=== PATIENT | male | born 1985 | race Caucasian/White ===

== ENCOUNTER 2017-09-05 10:32 | Emergency (ER) | payer OTHER, BC | END 2017-09-05 12:27 | disposition home or self-care (01) | LOC: M ED 10:32 | DX: S93.401A Sprain of unspecified ligament of right ankle, initial encounter (principal); W01.0XXA Fall on same level from slipping, tripping and stumbling without subsequent striking against object, initial encounter; Y92.59 Other trade areas as the place of occurrence of the external cause; Y99.0 Civilian activity done for income or pay | CPT/HCPCS: 73610 ==

== ENCOUNTER → 2019-07-22 | Outpatient (CLI) | payer BC ==
[~2019-07-22] MED LIST: IBUP200T45 PO
--- NOTE | 2019-07-22 11:34 | REP ---
Chest x-ray: Two views. History: Cough and wheezing. Findings: The lungs are well inflated and clear. Pleural angles are sharp. Heart size is normal. Pulmonary vasculature is not increased. No significant bony abnormality is appreciated. Impression: No acute disease. Electronically Signed by Jimy Alejandre MD 07/22/2019 11:25 A
== END ==
LOC: M LRY 10:58
PROVIDERS: ATTEND Physician Assistant
DX: R05 Cough (principal); R06.2 Wheezing

== ENCOUNTER 2020-07-01 14:25 | Inpatient (IN) | payer BC ==
[~2020-07-01] VITALS: Ht 182.9 cm; Wt 107.8 kg
--- NOTE | 2020-07-01 15:42 | REP ---
INDICATION: pAIN, SWELLING FOUR . COMPARISON: Comparison left foot radiographs September 12, 2008.. TECHNIQUE: AP and lateral views. FINDINGS: There is extensive vascular calcification including the inter digital arteries. Osteoarthritis is seen at the 1st MTP joint. There is plantar and Achilles calcaneal spurring. No acute bony erosive changes seen. No soft tissue gas or opaque foreign body is observed. No other abnormality. IMPRESSION: Extensive vascular calcification. 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 No erosive change or soft tissue gas seen.. <Electronically signed by Luis Alejandre > 07/01/20 [id number]
--- NOTE | 2020-07-01 16:19 | REP ---
INDICATION: Swelling, pain. COMPARISON: None. TECHNIQUE: Left lower extremity duplex venous ultrasound. FINDINGS: The deep veins are anechoic and fully compressible from the groin to the popliteal fossa in the left lower extremity. Color flow imaging is homogeneous. Spectral Doppler interrogation demonstrates intact respiratory variation in flow and normal manual augmentation of flow. There is no evidence of deep vein thrombosis. IMPRESSION: Negative left lower extremity duplex venous ultrasound. No evidence of deep vein thrombosis. <Electronically signed by Luis Alejandre > 07/01/20 [id number]
[2020-07-01 16:33] LABS: BASO # 0.1 10^3/uL (0.0-0.2); BASO % 0.3 % (0.0-1.0); EOS # 0.1 10^3/uL (0.0-0.5); EOS % 0.8 % (0.0-3.0); HEMATOCRIT 21.3 % (42.0-52.0); LYMPH # 1.2 10^3/uL (1.5-5.0); LYMPH % 7.2 % (24.0-44.0); MEAN CORPUSCULAR HEMOGLOBIN 30.4 pg (27.0-33.0); MEAN CORPUSCULAR HGB CONC 32.9 g/dl (32.0-36.5); MEAN CORPUSCULAR VOLUME 92.6 fl (80.0-96.0); MONO # 0.9 10^3/uL (0.0-0.8); MONO % 5.4 % (0.0-5.0); NEUTROPHILS # 14.2 10^3/uL (1.5-8.5); NEUTROPHILS % 85.6 % (36.0-66.0); PLATELET COUNT, AUTOMATED 233 10^3/uL (150-450); WHITE BLOOD COUNT 16.6 10^3/uL (4.0-10.0)
[2020-07-01 17:11] LABS: ALBUMIN 3.5 GM/DL (3.2-5.2); BILIRUBIN,DIRECT 0.1 MG/DL (0.0-0.2); BILIRUBIN,TOTAL 0.4 MG/DL (0.2-1.0); C REACTIVE PROTEIN QUANTITATIV 4.31 MG/DL (0.00-0.30); CALCIUM LEVEL 9.2 MG/DL (8.5-10.1); CREATININE FOR GFR 10.8 MG/DL (0.70-1.30); GLOMERULAR FILTRATION RATE 5.7 (>60); POTASSIUM SERUM 4.4 MEQ/L (3.5-5.1); TOTAL PROTEIN 8.3 GM/DL (6.4-8.2)
[2020-07-01 17:29] LABS: CK-MB VALUE MASS 7.7 NG/ML (<3.6); ERYTHROCYTE SEDIMENTATION RATE 127 mm/hr (0-15); MB/CK RELATIVE INDEX 6.21 (< OR =4); TROPONIN I 0.09 NG/ML (< 0.10)
[2020-07-01] MEDS ORDERED: NS 3,350 ML in IV 1 EA IV ONE (17:30)
--- NOTE | 2020-07-01 18:17 | REP ---
INDICATION: Rhonchi. COMPARISON: Comparison chest x-ray July 22, 2019. TECHNIQUE: Two views.. FINDINGS: The heart appears enlarged, increased from the prior study. Cardiothoracic ratio today is 58.8%. There is diffuse peribronchial thickening consistent with viral or bronchospastic etiology. No focal infiltrate is appreciated. The pleural angles are sharp. No significant bony abnormality. IMPRESSION: Diffuse peribronchial thickening consistent with viral or bronchospastic etiology. Cardiomegaly.. <Electronically signed by Luis Alejandre > 07/01/20 [id number]
[2020-07-01 19:11] LABS: HEMOGLOBIN A1c 5.7 %
--- NOTE | 2020-07-01 20:35 | REPVR ---
PROCEDURE INFORMATION: Exam: US Retroperitoneal Limited, Kidneys Exam date and time: 07/01/2020 6:21 PM Age: 35 years old Clinical indication: Abnormal findings; Abnormal lab test; Abnormal kidney function lab tests; Additional info: Inc CR TECHNIQUE: Imaging protocol: Real-time ultrasound of the retroperitoneum with image documentation. Examination was focused on the kidneys. COMPARISON: No relevant prior studies available. FINDINGS: Right kidney: Kidney is echogenic. Right kidney measures 12.1 cm. Small simple cysts measuring up to 2.3 cm. No solid masses or hydronephrosis. Left kidney: Kidney measures 13.1 cm. Mildly echogenic cortex. No hydronephrosis. Simple cysts measuring up to 1 cm. Small non-obstructing calyceal stones. Bladder: Urinary bladder is unremarkable. IMPRESSION: 1. Mildly echogenic kidneys suggesting medical renal disease. 2. Small simple cysts in both kidneys. 3. Small calyceal stone in the left kidney. 4. No hydronephrosis. Electronically signed by: Micheal Dhillon On 07/01/2020 20:35:28 PM
--- NOTE | 2020-07-01 20:54 | HPEPDOC ---
[facility] Medical History & Physical Date of Admission Jul 01, 2020 Date of Service: Jul 01, 2020 History and Physical CHIEF COMPLAINT: Left foot pain HISTORY OF PRESENT ILLNESS: 35-year-old male past medical history of hypertension not taking any medications presents to the emergency department because of 3 day history of left foot discomfort. Patient redness on the dorsal aspect of his left foot 3 days ago and then yesterday he noticed the formation of a black spot between the fourth and fifth digits of his left foot. He denies any foot discharge. Denies any fevers or chills. States that he frequently gets gouty episodes he gets them several times a year over the past several years. He doesn't take any medications for his gout and just tries to adhere to a low red meat diet. In the ED patient was found to be in acute renal failure nephrology was consulted Dr. Erazo recommended renal ultrasound and urinalysis. Patient denies any history of known kidney disease. States he makes normal amounts of urine with no recent changes to his urine volume. Denies any dysuria or changes in urinary frequency or color. He is also found to have a hemoglobin of 7.0 he denies any bleeding or black stools and denies any weakness chest pain palpitations or fatigue. Patient was also found to have an elevated white blood cell count 16. he doesn't have any shortness of breath or sputum production he denies any fevers or ch ills. 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 REVIEW OF SYSTEMS: 10 point review of systems complete all negative otherwise stated in HPI HOME MEDICATIONS: Please see below. PHYSICAL EXAMINATION: Constitutional: Awake and alert, in no apparent distress, full-grown brown, pleasant and cooperative ENT: Sclera are clear. Mucosa is moist. Respiratory: Lungs CTA bilaterally. No respiratory distress. No use of accessory muscles. Cardiovascular: RRR S1 and S2 are normal, no murmur Gastrointestinal: Abdomen is soft, non distended, non tender, BS present. Obese abdomen Musculoskeletal: No lower extremity edema. No joint deformities. RUE 5/5, LUE 5/5, BLE 5/5 Neurologic: No focal neurological deficit. Mental Status: A&O x3, normal affect Skin: Examination of his left foot reveals some erythema on the dorsal aspect of foot which extends from a black necrotic appearing tissue that's about 1 cm in diameter on the lateral aspect of the fourth toe. The area is mildly tender to palpation with some warmth. Sensation is intact but decreased over the necrotic- appearing area. Otherwise skin is Warm, dry LABORATORY DATA: See below. IMAGING: Exam: US Retroperitoneal Limited, Kidneys Exam date and time: 07/01/2020 6:21 PM IMPRESSION: 1. Mildly echogenic kidneys suggesting medical renal disease. 2. Small simple cysts in both kidneys. 3. Small calyceal stone in the left kidney. 4. No hydronephrosis. Chest, 2 view PA, Lat 07/01/20 1724 IMPRESSION: Diffuse peribronchial thickening consistent with viral or bronchospastic etiology.Cardiomegaly XR Foot, Ap, Lat LEFT 07/01/20 1508 IMPRESSION: Extensive vascular calcification. 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 No erosive change or soft tissue gas seen Duplex, Ext,LOWER veins,unilat LEFT Negative left lower extremity duplex venous ultrasound. No evidence of deep vein thrombosis. MICROBIOLOGY: Please see below. ASSESSMENT/PLAN 35-year-old male past medical history of hypertension not taking any medications presents to the emergency department because of 3 day history of left foot discomfort. Found to have acute kidney injury, anemia hgb 7, and leukocytosis possibly secondary to left foot cellulitis. Patient admitted to medical unit for further management. # Acute renal faliure: Unknown etiology. Could be secondary to uric acid nephropathy. Fu uric acid level. US kidneys. UA. Dr Howe switch repairer consulted. Says he has good UO. Monitor ins/outs. # Left foot cellulitis with necrotic-appearing area on fourth toe: Meets SIRS criteria (Tachy/leukocytosis) Afebrile. Start IV vancomycin and Cefazolin. IVFs, slower rate until we know his urine output. Lactate normal. Dr Bahena school crossing guard supervisor was consulted and will evaluate in the am. XR foot as above. Fu BCx, UA. # Tachycardia: likely 2/2 cellulitis and pain. Pain control. EKG. IVFs. # Gout: Hx multiple annual gouty episodes affecting his big toes. Left big toe has some swelling and mildly tender. Says its been unchanged like this for weeks, episode less acute. Will hold off on steroid given suspected cellulitis, hold off on NSAIDs due to renal failure, and colchicine will be less effective when attack is >24-36 hrs in this case its been weeks. Fu on uric acid levels. US joint aspiration tomorrow to confirm diagnosis. # Anemia: Etiology unclear, could be related to underlying CKD. Fu FOBT. Fu Irone studies. Transfuse 1uPRBC. Transfuse PRN hgb <7. # UTI: UA suggestive of UTI. Fu UCx. Cefazolin should cover UTI. Asymptomatic, no dysuria. # Uncontrolled hypertension: Not taking any medications. We'll start him on amlo dipine 10 mg. Monitor and titrate as needed. Hydralazine IV PRN SBP>160. # Obesity: BMI 33.4 complicates care. A1C 5.7% # DVT prophylaxis: Heparin A Yousef Hospitalist Vital Signs Vital Signs Date Time Temp Pulse Resp B/P (MAP) Pulse Ox O2 Delivery O2 Flow Rate FiO2 07/01/20 19:11 112 16 172/106 (128) 100 Room Air 07/01/20 17:33 97.7 Laboratory Data Labs 24H Laboratory Tests 2 07/01/20 16:14: Immature Granulocyte % (Auto) 0.7, Neutrophils (%) (Auto) 85.6H, Lymphocytes (%) (Auto) 7.2L, Monocytes (%) (Auto) 5.4H, Eosinophils (%) (Auto) 0.8, Basophils (%) (Auto) 0.3, Neutrophils # (Auto) 14.2H, Lymphocytes # (Auto) 1.2L, Monocytes # (Auto) 0.9H, Eosinophils # (Auto) 0.1, Basophils # (Auto) 0.1, Nucleated Red Blood Cells % (auto) 0.0, Erythrocyte Sedimentation Rate 127H, Anion Gap 13, Glomerular Filtration Rate 5.7L, Estimated Mean Plasma Glucose 117H, Hemoglobin A1c 5.7, Lactic Acid Level 0.8, Calcium Level 9.2, Total Bilirubin 0.4, Direct Bilirubin 0.1, Aspartate Amino Transf (AST/SGOT) 13, Alanine Aminotransferase (ALT/SGPT) 17, Alkaline Phosphatase 107, Total Creatine Kinase 124, Creatine Kinase MB 7.7H, Creatine Kinase MB Relative Index 6.21H, Troponin I 0.09, C- Reactive Protein, Quantitative 4.31H, Total Protein 8.3H, Albumin 3.5, Albumin/Globulin Ratio 0.7 07/01/20 17:59: Urine Color STRAW, Urine Appearance CLEAR, Urine pH 7.0, Urine Specific [place] 1.011, Urine Protein 3+H, Urine Glucose (UA) 1+H, Urine Ketones NEGATIVE, Urine Blood 1+H, Urine Nitrite NEGATIVE, Urine Bilirubin NEGATIVE, Urine Urobilinogen 0.2, Urine Leukocyte Esterase 2+H, Urine WBC (Auto) 29H, Urine RBC (Auto) 4H, Urine Hyaline Casts (Auto) 0, Urine Bacteria (Auto) NEGATIVE, Urine Squamous Epithelial Cells 0, Urine Amorphous Sediment SMALLH, Urine Sperm (Auto) 07/01/20 18:43: Coronavirus (COVID-19)(PCR) NEGATIVE CBC/BMP Laboratory Tests 07/01/20 16:14 Microbiology Microbiology 07/01/20 Blood Culture, Received Pending 07/01/20 Blood Culture, Received Pending 07/01/20 Urine Culture, Received Pending 07/01/20 Gram Stain, Received Pending 07/01/20 Wound Culture, Received Pending Home Medications No Active Prescriptions or Reported Meds Allergies Coded Allergies: No Known Drug Allergies (Verified Allergy, Unknown, 07/01/20) A-FIB/CHADSVASC A-FIB History Current/History of A-Fib/PAF?: No SEBASTIÁNSELORA Fish MD Jul 01, 2020 20:54
[2020-07-01 21:22] LABS: URIC ACID 9.9 MG/DL (3.5-7.2)
[2020-07-01] MEDS ORDERED: hydrALAZINE 20MG/ML 1ML VIAL (J0360 PER 20MG) IV PRN (21:30)
[2020-07-01] MEDS ORDERED: MAALOX 30 ML SUSP *UDC PO PRN (21:30)
[2020-07-01] MEDS ORDERED: MOM 30ML SUSPENSION UDC PO PRN (21:30)
[2020-07-01 21:40] VITALS: BP 159/87
[2020-07-01] MEDS ORDERED: VANCOMYCIN HCL 1,000 MG, VIAL MATE ADAPTER 1 EACH in D5W 250 ML IV ONE ×2 (21:45→23:00)
[2020-07-01] MEDS ORDERED: ceFAZolin SOD 1 GM in D5W MINI-BAG PLUS 50 ML IV SCH (22:00)
[2020-07-01 22:01] VITALS: BP 170/86
[2020-07-01 22:02] LABS: AMPHETAMINES LEVEL URINE NEGATIVE (NEGATIVE); BARBITURATES URINE NEGATIVE (NEGATIVE); BENZODIAZEPINES URINE NEGATIVE (NEGATIVE); CANNABINOIDS URINE NEGATIVE (NEGATIVE); COCAINE METABOLITE URINE NEGATIVE (NEGATIVE); METHADONE URINE NEGATIVE (NEGATIVE); OPIATES URINE NEGATIVE (NEGATIVE); PHENCYCLIDINE URINE NEGATIVE (NEGATIVE)
[2020-07-01 22:24] LABS: PERCENT SATURATION 6.8 % (19.7-50.0)
[2020-07-01 22:45] VITALS: BP 182/89
[2020-07-01 23:15] VITALS: BP 182/89
[2020-07-02] MEDS: NS 1,000 ML IV SCH ×3 (01:30→17:38)
[2020-07-02 01:52] LABS: INR 1.17; PROTHROMBIN TIME 15.2 SECONDS (12.5-14.3)
[2020-07-02] MEDS ORDERED: VANCOMYCIN INTERMITTENT/PULSE DOSING BY CLINICAL PHARMACIST PER DOSING PROTOCOL XX SCH (04:30)
[2020-07-02] MEDS ORDERED: VANCOMYCIN HCL 1,000 MG, VIAL MATE ADAPTER 1 EACH in D5W 250 ML IV ONE (05:00)
[2020-07-02 06:45] LABS: HEMATOCRIT 22.2 % (42.0-52.0); HEMOGLOBIN 7.5 g/dl (13.5-17.5); MEAN CORPUSCULAR HGB CONC 33.8 g/dl (32.0-36.5); MEAN CORPUSCULAR VOLUME 91.7 fl (80.0-96.0); PLATELET COUNT, AUTOMATED 195 10^3/uL (150-450); RED BLOOD COUNT 2.42 10^6/uL (4.30-6.10)
--- NOTE | 2020-07-02 07:22 | ECGEPIP ---
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
[2020-07-02 07:35] LABS: ALBUMIN 3.2 GM/DL (3.2-5.2); BLOOD UREA NITROGEN 121 MG/DL (7-18); CALCIUM LEVEL 9.3 MG/DL (8.5-10.1); CARBON DIOXIDE LEVEL 21 MEQ/L (21-32); CHLORIDE LEVEL 106 MEQ/L (98-107); GLOMERULAR FILTRATION RATE 5.7 (>60); GLUCOSE, FASTING 157 MG/DL (70-100); PHOSPHORUS LEVEL 7.6 MG/DL (2.5-4.9); POTASSIUM SERUM 4.8 MEQ/L (3.5-5.1); SODIUM LEVEL 140 MEQ/L (136-145)
[2020-07-02 09:03] LABS: PTH INTACT 535.7 PG/ML (18.5-88.0)
[2020-07-02 09:23] LABS: COMPLEMENT C3 76 MG/DL (90-180); COMPLEMENT C4 25 MG/DL (10-40); TOTAL PROTEIN 7.6 GM/DL (6.4-8.2)
[2020-07-02] MEDS: CARVedilol 3.125 MG TAB PO SCH ×2 (10:48→22:01)
[2020-07-02] MEDS: DOCUSATE SODIUM 100MG CAPSULE PO SCH ×2 (10:48→22:01)
[2020-07-02] MEDS: amLODIPine 10 MG TAB PO SCH (10:48)
[2020-07-02] MEDS: HEPARIN SOD (PORCINE) 5000UNITS/ML 1ML VIAL/SYRINGE SC SCH ×2 (10:51→22:01)
[2020-07-02] MEDS: ceFAZolin SOD 1 GM in D5W MINI-BAG PLUS 50 ML IV SCH ×2 (10:51→18:36)
[2020-07-02] MEDS ORDERED: LIDOCAINE 1% MDV 20ML VIAL As Ordered ONE (11:37)
--- NOTE | 2020-07-02 12:25 | REP ---
INDICATION: Left Big toe joint aspiration for fluid arabella analysis gout. COMPARISON: None. TECHNIQUE: Ultrasound of the left great toe for fluid. FINDINGS: No intra-articular fluid is identified in the great toe MTP joint or in the P PIP joint. No focal fluid collections are identified in the soft tissues. IMPRESSION: No intra-articular or soft tissue fluid collections are identified. <Electronically signed by Timothy Greene > 07/02/20 0848
--- NOTE | 2020-07-02 13:41 | CR ---
CONSULTATION DATE: 07/02/2020 REASON FOR CONSULTATION: Left toe pain. HISTORY OF PRESENT ILLNESS: Will Flood is a 35-year-old male who was admitted to the hospital yesterday due to worsening left foot pain. He states the pain and redness to his left foot started about 3 days ago and noticed the toe turning darker and darker. Prior to this the toe was normal in appearance without pain. MEDICAL HISTORY: He has a history of hypertension and of gout. He does not follow regularly with any medications or doctor. SURGICAL HISTORY: Right knee surgery. SOCIAL HISTORY: Positive for alcohol use. Negative for tobacco use. ALLERGIES: No known drug allergies. REVIEW OF SYSTEMS: He denies nausea or vomiting, fever, or chills. Vital signs are reviewed. He has remained afebrile. He has been hypertensive while in hospital. Labs are reviewed. White blood cell count on admission was 16.6, today is 14. ESR was 127. Hemoglobin 7. Uric acid was 9.9. CPR was 4.3. Creatinine 10.8, BUN 120, and his GFR is 5.7. Lower extremity examination: His pedal pulses are palpable. The foot appears well perfused with the exception of the left 4th toe. There is ischemic changes to the left 4th toe with purplish discoloration. There is some black on the lateral aspect of the toe. There is some malodor. There is some sloughing of the skin. There is no purulence. There is some extending erythema. ASSESSMENT: A 35-year-old male with 4th toe gangrene, likely due to thrombolic event. PLAN: Antibiotics have been initiated. He does have would culture with some positive bacteria. It appears as though the toe has become infected since losing blood flow and not the other way around, although this is not something which can be proved. He has extensive vascular calcification on his x-rays. He is in renal failure. He has other underlying conditions which have not been identified. For now, will start with Nitro-Bid paste. He is on empiric antibiotics. Pathology has been consulted. Will monitor. Did discuss that if further vascular changes, he may ultimately lose the toe. Presently no surgical intervention is planned.
--- NOTE | 2020-07-02 14:57 | IPNPDOC ---
Text Note Date of Service The patient was seen on 07/02/20. NOTE Subjective: Patient seen and examined this morning at bedside he still down in the emergency department. Says she's feeling well same as yesterday no complaints. Nurse tells me there is no overnight acute events. Still having good urine output. Denies any fevers or chills. Denies chest pain or shortness of breath. Toe pain feels better. Objective: Constitutional: Awake and alert, in no apparent distress, full-grown brown, pleasant and cooperative ENT: Sclera are clear. Mucosa is moist. Respiratory: Lungs CTA bilaterally. No respiratory distress. No use of accessory muscles. Cardiovascular: RRR S1 and S2 are normal, no murmur Gastrointestinal: Abdomen is soft, non distended, non tender, BS present. Obese abdomen Musculoskeletal: No lower extremity edema. No joint deformities. RUE 5/5, LUE 5/5, BLE 5/5 Neurologic: No focal neurological deficit. Mental Status: A&O x3, normal affect Skin: Examination of his left foot reveals some erythema on the dorsal aspect of foot which extends from a black necrotic appearing tissue that's about 1 cm in diameter on the lateral aspect of the fourth toe. The area is mildly tender to palpation with some warmth. Sensation is intact but decreased over the necrotic- appearing area. Otherwise skin is Warm, dry Assessment/plan: 35-year-old male past medical history of hypertension not taking any medications presents to the emergency department because of 3 day history of left foot discomfort. Found to have acute kidney injury, anemia hgb 7, and leukocytosis possibly secondary to left foot cellulitis. Patient admitted to medical unit for further management. # Acute renal failure: Unknown etiology at this. US kidneys. UA. Monitor ins/outs. Dr Howe fork assembler consulted. Plan kidney Bx 07/04. May require HD. # Left foot cellulitis with necrotic-appearing area on fourth toe: Meets SIRS criteria (Tachy/leukocytosis) Afebrile. IV vancomycin and Cefazolin. Wound Cx. IVFs. Lactate normal. Dr Bahena curriculum supervisor was consulted evaluated patient, looks like necrotic toe likely likely started got infected caused the cellulitis. Conservative management for now but if it wosens may require amputation. XR foot as above. Fu BCx. # Tachycardia: likely 2/2 cellulitis and pain. Pain control. EKG. IVFs. Improved. Sinus tachy. Started on carvedilol. # Cardiomegaly: seen on CXR. Fu Echo. Carvedilol. # Gout: Hx multiple annual gouty episodes affecting his big toes. Left big toe has some swelling and mildly tender. Says its been unchanged like this for weeks, episode less acute. Will hold off on steroid given suspected cellulitis, hold off on NSAIDs due to renal failure, and colchicine will be less effective when attack is >24-36 hrs in this case its been weeks. Uric acid level elevated. US joint aspiration no fluid to aspirate, imaging not classic of gout. Likely not an acute flare up currently. Given the unknown cost accounting clerk and duration of patient renal faliure will hold off on allopurinol for now as patient is comfortable and not in acute gouty episode. # Anemia: Etiology unclear, could be related to underlying CKD. Fu FOBT. Fu Irone studies. Transfuse 1uPRBC. Transfuse PRN hgb <7. PO iron. # UTI: UA suggestive of UTI. UCx negative. # Uncontrolled hypertension: Not taking any medications. Started on amlodipine 10 mg. Carvedilol started. Monitor and titrate as needed. Hydralazine IV PRN SBP>160. # Obesity: BMI 33.4 complicates care. A1C 5.7% # DVT prophylaxis: Heparin A Jak Hospitalist Silvia KAPOOR, I+O VS, Silvia, I+O Laboratory Tests 07/01/20 16:14 07/02/20 06:09 Vital Signs Date Time Temp Pulse Resp B/P (MAP) Pulse Ox O2 Delivery O2 Flow Rate FiO2 07/02/20 13:48 98 16 142/83 (102) 100 Room Air 07/02/20 10:57 97.6 I&O- Last 24 Hours up to 6 AM 07/02/20 05:59 Intake Total 1149 ml Balance 1149 ml LORA MICHEL MD Jul 02, 2020 14:57
--- NOTE | 2020-07-02 15:06 | CR ---
CONSULTATION DATE: 07/02/2020 CONSULTATION FOR: Dr. Gold Benedict REASON FOR CONSULTATION: Acute renal failure and severe anemia. HISTORY OF PRESENT ILLNESS: Mr. Flood is a 35-year-old gentleman with known history of hypertension and recurrent gout, for which he was not taking any medications. He has not been seeing a physician regularly and did not have any lab work for at least a couple of years. He presented to emergency room on July 01 with a discolored toe on his left foot. Labs were done in the emergency room due to possible cellulitis on his foot, and he was found to have a serum creatinine of about 10 and BUN 120. Patient did report that he did not eat or drink much all day, so it was felt that he might be dehydrated. He is being treated with intravenous (IV) normal saline; however, kidney function has not changed at all. A nephrology consultation was requested last evening, and patient is seen this morning in emergency room. MEDICAL HISTORY: 1. Hypertension without any treatment. 2. Recurrent gout without any treatment. SURGICAL HISTORY: Significant for right knee surgery as a teenager. PERSONAL AND SURGICAL HISTORY: Patient reports drinking 1-2 beers a week. Denies any illicit drugs or tobacco use. 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 FAMILY HISTORY: Mother has breast cancer and diabetes. Sister with no medical problems and father unknown. Patient denies any family history for kidney disease. ALLERGIES: Patient has no known drug allergies. MEDICATIONS: He was not taking any medications at home. He denies specifically use of any nonsteroidal anti-inflammatory drugs (NSAIDs). REVIEW OF SYSTEMS: Patient denies any fever or chills. He denies any trauma to the toe. Ears, nose, and throat are unremarkable. Cardiovascular system is significant for hypertension but not treated. Denies any leg edema. Respiratory system negative for cough or hemoptysis. Gastrointestinal system negative for vomiting or diarrhea. Genitourinary system is negative for dysuria or hematuria. A renal ultrasound done in the emergency room was negative for any hydronephrosis. Musculoskeletal system is significant for gangrenous left 4th toe and some erythema on the dorsum of his foot. Neurologically, he is awake, alert, and oriented times three. LABORATORY DATA: On arrival, yesterday his WBC count was 16.6, hemoglobin 7.0, and hematocrit 21.3, platelets 233. Today WBC count is 14.0, hemoglobin 7.5, and hematocrit 22.2. Platelets 195. Urinalysis showed 3+ protein, 1+ glucose, 1+ blood, 29 WBC, and 4 RBC. His chemistry showed a sodium 140, potassium 4.4, CO2 of 23, BUN 120, and creatinine 10.8. Calcium level 9.2 and a uric acid level was 9.9. Total protein 8.3 and albumin 3.5. LFTs were within normal range. Iron level 17 and saturation 6.8 with ferritin 494. PROBLEMS: 1. Renal failure. Etiology is uncertain at present. Ultrasound of his kidneys showed 12 and 13 cm kidneys with mildly increased echogenicity. Small simple cyst in both kidneys and no hydronephrosis. He did have a small stone in the left kidney. Chest x-ray done in the emergency room shows diffuse peribronchial thickening and some cardiomegaly. His kidney function has not changed despite IV fluid hydration. I feel that most of his kidney problem is chronic, even though his kidney size is 12 and 13 cm. He denies any uremic symptoms at present. We will check his urine for total protein with a 12-hour urine collection. We will get complements, RONY, ANCA, anti-GBM (basement membrane), PT and a PTT, urine and serum protein electrophoresis and complements. I have discussed with the patient and explained to him about potential need for a kidney biopsy and also potential need for dialysis. At this point, there is no emergent indication for dialysis; however, he is very much likely to require it. We will plan on doing a kidney biopsy on Sunday. 2. Anemia. Patient does have iron deficiency, and anemia is most likely multifactorial. There is no emergent indication for a transfusion. We can start with some oral iron supplement for now. 3. Hypertension. Patient has untreated hypertension, at least for a while. He is tachycardic also, and I am going to start with low-dose beta kim and adjust the dose as needed. He has already been started on amlodipine 10 mg daily by the hospitalist. Thank you for involving me in the care of Mr. Flood. Our nephrology service will follow him along with you.
[2020-07-02 16:30] VITALS: BP 150/90
[2020-07-02] MEDS: NITROGLYCERIN 2% OINT 1 GM *U/D* PKT TOP SCH ×2 (17:30→22:02)
[2020-07-02 20:00] VITALS: BP 170/100
[2020-07-03] VITALS (9 sets, daily range): BP systolic 136–168; BP diastolic 68–94
[2020-07-03] MEDS: ceFAZolin SOD 1 GM in D5W MINI-BAG PLUS 50 ML IV SCH (03:05)
[2020-07-03 06:41] LABS: HEMOGLOBIN 7.1 g/dl (13.5-17.5); MEAN CORPUSCULAR HEMOGLOBIN 31.1 pg (27.0-33.0); MEAN CORPUSCULAR HGB CONC 33.8 g/dl (32.0-36.5); MEAN CORPUSCULAR VOLUME 92.1 fl (80.0-96.0); PLATELET COUNT, AUTOMATED 194 10^3/uL (150-450); RED BLOOD COUNT 2.28 10^6/uL (4.30-6.10); WHITE BLOOD COUNT 13.8 10^3/uL (4.0-10.0)
[2020-07-03 07:18] LABS: BLOOD UREA NITROGEN 123 MG/DL (7-18); CALCIUM LEVEL 9.1 MG/DL (8.5-10.1); CARBON DIOXIDE LEVEL 20 MEQ/L (21-32); CHLORIDE LEVEL 107 MEQ/L (98-107); GLOMERULAR FILTRATION RATE 5.9 (>60); GLUCOSE, FASTING 111 MG/DL (70-100); POTASSIUM SERUM 4.6 MEQ/L (3.5-5.1); SODIUM LEVEL 139 MEQ/L (136-145); VANCOMYCIN RANDOM 21.7 UG/ML
--- NOTE | 2020-07-03 08:25 | IPNPDOC ---
Text Note Date of Service The patient was seen on 07/03/20. NOTE Subjective: Patient seen and examined this morning at bedside. Says she's feeling well same as yesterday no complaints. Nurse tells me there is no overnight acute events. Still having same urine output. Denies any fevers or chills. Denies chest pain or shortness of breath. Toe today more black but not more painful. Objective: Constitutional: Awake and alert, in no apparent distress, full-grown brown, pleasant and cooperative ENT: Sclera are clear. Mucosa is moist. Respiratory: Lungs CTA bilaterally. No respiratory distress. No use of accessory muscles. Cardiovascular: RRR S1 and S2 are normal, no murmur Gastrointestinal: Abdomen is soft, non distended, non tender, BS present. Obese abdomen Musculoskeletal: No lower extremity edema. No joint deformities. RUE 5/5, LUE 5/5, BLE 5/5 Neurologic: No focal neurological deficit. Mental Status: A&O x3, normal affect Skin: Examination of his left foot reveals some erythema on the dorsal aspect of foot which extends from a black necrotic appearing fourth toe, its now progressed and black all the way down to the base of the toe. Assessment/plan: 35-year-old male past medical history of hypertension not taking any medications presents to the emergency department because of 3 day history of left foot discomfort. Found to have acute kidney injury, anemia hgb 7, and leukocytosis possibly secondary to left foot cellulitis. Patient admitted to medical unit for further management. # Acute renal failure: Unknown etiology at this. US kidneys. UA. Monitor ins/outs. Dr Howe carriage operator consulted. Plan kidney Bx 07/04. May require HD. # Left foot cellulitis: Meets SIRS criteria (Tachy/leukocytosis) Afebrile. IV vancomycin and Cefazolin. IVFs. Lactate normal. # Left foot necrotic fourth toe: Dr Bahena fish bin tender was consulted evaluated patient, looks like necrotic toe likely likely started got infected caused the cellulitis. Will re-evaluate patient given progression and discuss surgery with pt. XR foot as above. Fu BCx. # Sinus Tachycardia: Initially on presentation. likely 2/2 cellulitis and pain. Resolved with Pain control IVFs and carvidilol. # Cardiomegaly: seen on CXR. Fu Echo. Carvedilol. # Gout: Hx multiple annual gouty episodes. Doesn't appear to be in acute episode. US no fluid to aspirate for analysis. # Anemia: Etiology unclear, could be related to underlying CKD. Fu FOBT. Fu I katarzyna studies. Transfuse 1uPRBC. Transfuse PRN hgb <7. PO iron. # UTI: UA suggestive of UTI. UCx negative. # Uncontrolled hypertension: Not taking any medications. Started on amlodipine 10 mg. Carvedilol started. Monitor and titrate as needed. Hydralazine IV PRN SBP>160. # Obesity: BMI 33.4 complicates care. A1C 5.7% # DVT prophylaxis: Heparin A Jak Hospitalist VS,Silvia, I+O VS, Silvia, I+O Laboratory Tests 07/03/20 06:00 Vital Signs Date Time Temp Pulse Resp B/P (MAP) Pulse Ox O2 Delivery O2 Flow Rate FiO2 07/03/20 04:00 98.3 102 16 157/93 (114) 95 Room Air I&O- Last 24 Hours up to 6 AM 07/03/20 06:00 Intake Total 3710 ml Output Total 1025 ml Balance 2685 ml LORA MICHEL MD Jul 03, 2020 08:25
[2020-07-03 08:28] LABS: CHOLESTEROL LEVEL 117 MG/DL (<200); CHOLESTEROL RISK RATIO 4.034 (<5); FREE T4 0.81 NG/DL (0.76-1.46); HDL CHOLESTEROL 29 MG/DL (>40); LDL CHOLESTEROL 68 MG/DL (<100); NON-HDL-C 88 MG/DL; TRIGLYCERIDES LEVEL 100 MG/DL (<150)
[2020-07-03] MEDS: HEPARIN SOD (PORCINE) 5000UNITS/ML 1ML VIAL/SYRINGE SC SCH ×2 (08:54→22:05)
[2020-07-03] MEDS: FERROUS SULFATE 325MG TAB PO SCH (08:54)
[2020-07-03] MEDS: NITROGLYCERIN 2% OINT 1 GM *U/D* PKT TOP SCH ×2 (08:55→22:05)
[2020-07-03] MEDS: CARVedilol 3.125 MG TAB PO SCH ×2 (08:56→22:04)
[2020-07-03] MEDS: cefTRIAXone SOD 1 GM in D5W MINI-BAG PLUS 50 ML IV SCH (08:56)
[2020-07-03] MEDS: DOCUSATE SODIUM 100MG CAPSULE PO SCH ×2 (08:56→21:00)
[2020-07-03] MEDS: amLODIPine 10 MG TAB PO SCH (08:56)
[2020-07-03 11:11] LABS: HEMOGLOBIN A1c 5.9 %
[2020-07-03] MEDS: (RENVELA) SEVELAMER **CARBONate** 800 MG TAB PO SCH ×2 (12:02→17:29)
[2020-07-03] MEDS ORDERED: FUROSEMIDE 40MG/4ML VIAL (J1940) IV ONE (13:00)
[2020-07-03 13:36] LABS: HEMATOCRIT 23.7 % (42.0-52.0)
[2020-07-03 15:30] LABS: URINE TOTAL PROTEIN 222.2 MG/DL (0-12)
[2020-07-03 15:41] LABS: PROTEIN,TOTAL 12 HR 2999.7 MG/12HR (25-75)
[2020-07-03] MEDS ORDERED: methylPREDNISolone 500 MG, VIAL MATE ADAPTER 1 EACH in D5W 250 ML IV ONE (21:30)
--- NOTE | 2020-07-03 23:37 | IPN ---
NEPHROLOGY PROGRESS NOTE DATE: 07/03/2020 SUBJECTIVE: The patient was seen and examined at the bedside today morning. His hemoglobin level was low. I had ordered one unit of PRBC transfusion. He was getting blood when I saw him. There is no significant improvement in his renal function today as compared with yesterday. Creatinine is still about 10. OBJECTIVE: VITAL SIGNS: Temperature is 98.7 degrees Fahrenheit, blood pressure 158/78, pulse is 101, respiratory rate of 19, saturating 96% on room air. INTAKE AND OUTPUT: Urine output recorded as 575 mL yesterday, 950 mL so far today since overnight. Weight in the bed scale is 111.8 kg. PHYSICAL EXAMINATION: GENERAL APPEARANCE: The patient is awake, alert, oriented x3. He is obese, laying in bed in no apparent distress. HEAD AND NECK: Extraocular muscles intact. Pupils are equally round and reactive to light. Mucous membranes are moist. Neck is supple. There is no jugular venous distention. CARDIOVASCULAR: S1, S2, regular rate. EXTREMITIES: No edema of the bilateral lower extremities. RESPIRATORY: Chest is clear to auscultation bilaterally. Bilaterally currently no rales or rhonchi. ABDOMEN: Soft, obese, positive bowel sounds, nontender, no organomegaly. MUSCULOSKELETAL: The patient has cyanosis of the left foot toes and he has a dressing around the left fourth toe. DRUG SAFETY ASSOCIATE: No focal deficits. Power is 5/5 in all extremities. LABORATORY REVIEW: CBC showed a WBC of 13.8, hemoglobin is 7.1, platelets of 194. INR was 1.1 yesterday. Urine 12 hour protein is 2.9 grams. BMP done today morning showed sodium 139, potassium 4.6, chloride 107, bicarbonate 20, BUN 123, creatinine is 10.5, glucose is 111, hemoglobin A1c is 5.9. Calcium is 9.1. Urine toxicology is all negative. So far complement 3 level is 76. C-4 is normal. The rest of the serologies are all pending. Anti-streptolysin O antibody is high. Microbiology: blood cultures are negative. Urine culture is negative. Wound culture prelim is growing Enterobacter cloacae strep group C and staph aureus. CURRENT INPATIENT MEDICATIONS: The patient's medications were all reviewed by myself. IV Ancef was stopped because this was not covering both the organisms. He has been started on IV Ceftriaxone. IV fluids have been stopped. I have given him a dose of Solu-Medrol given his young age, acute renal failure with nephrotic range proteinuria and high likelihood of autoimmune disease. He continues to be on Amlodipine and Coreg. I also gave him a dose of Lasix to be given after blood transfusion. He has been started on IV Protonix and Renvela 800 mg p.o. with meals. ASSESSMENT AND PLAN: 1. Acute renal failure with proteinuria and hematuria serology is pending. I have given one dose of IV Solu-Medrol today. The patient will need to get a catheter placement on Sunday. I would dialyze the patient. He has agreed for hemodialysis. And after dialysis, I would do the kidney biopsy because without the dialysis, with uremia, there is a risk of bleeding from the kidney. Once we have the final biopsy results and serology results back, definitive treatment will be started, however I would cover the patient with Solu-Medrol at this time. 2. Anemia with combination of renal failure and iron deficiency the patient is getting another unit of blood today. He will also be started on Venofer and Aranesp with dialysis. 3. Chronic kidney disease, mineral bone disease his phosphorous level is high. It should get better with dialysis, however I started him on Renvela with meals. 4. Secondary hyperparathyroidism PTS level is very high. Once his phosphorous levels get better, I would start the patient on Calcitriol. 5. Hypertension it is secondary to renal failure. Continue current dose of Amlodipine and Coreg. Avoid use of PIERRE/ARB at this time. MTDD
[2020-07-04] VITALS: BP 136/94
[2020-07-04 04:00] VITALS: BP 158/90
[2020-07-04 04:59] LABS: HEMATOCRIT 24.5 % (42.0-52.0); HEMOGLOBIN 8.4 g/dl (13.5-17.5); MEAN CORPUSCULAR HGB CONC 34.3 g/dl (32.0-36.5); MEAN CORPUSCULAR VOLUME 90.4 fl (80.0-96.0); PLATELET COUNT, AUTOMATED 208 10^3/uL (150-450); RED BLOOD COUNT 2.71 10^6/uL (4.30-6.10); WHITE BLOOD COUNT 17.2 10^3/uL (4.0-10.0)
[2020-07-04 05:10] LABS: INR 1.16; PROTHROMBIN TIME 15.1 SECONDS (12.5-14.3)
[2020-07-04 05:11] LABS: PARTIAL THROMBOPLASTIN TIME 32.8 SECONDS (24.2-38.5)
[2020-07-04 05:34] LABS: CALCIUM LEVEL 9.1 MG/DL (8.5-10.1); CREATININE FOR GFR 10.5 MG/DL (0.70-1.30); GLOMERULAR FILTRATION RATE 5.9 (>60); POTASSIUM SERUM 5.2 MEQ/L (3.5-5.1)
[2020-07-04] MEDS ORDERED: VANCOMYCIN HCL 500 MG in D5W MINI-BAG PLUS 100 ML IV ONE (06:00)
--- NOTE | 2020-07-04 07:15 | REPVR ---
PROCEDURE INFORMATION: Exam: CT Chest Without Contrast; Diagnostic Exam date and time: 07/04/2020 6:17 AM Age: 35 years old Clinical indication: Other: R/O pulmonary renal syndrome; Additional info: Follow up cxr, R/O pulmonary renal syndrome TECHNIQUE: Imaging protocol: Diagnostic computed tomography of the chest without contrast. 3D rendering (Not supervised by radiologist): MIP and/or 3D reconstructed images were created by the technologist. Radiation optimization: All CT scans at this facility use at least one of these dose optimization techniques: automated exposure control; mA and/or kV adjustment per patient size (includes targeted exams where dose is matched to clinical indication); or iterative reconstruction. COMPARISON: CO Chest, 2 view PA, Lat 07/01/2020 5:45 PM FINDINGS: Lungs: There is left basilar atelectatic changes. There is mild bronchial wall thickening. There is subtle right and left lower lobes ground-glass haziness. Pleural space: Unremarkable. No pneumothorax. No pleural effusion. Heart: The heart is mildly enlarged. There is trace pericardial effusion likely physiologic. Pulmonary arteries: The pulmonary trunk is dilated at 3.5 centimetres. Aorta: Unremarkable. No aortic aneurysm. Lymph nodes: Nonspecific shotty mediastinal lymph nodes seen measuring up to 1.9 cm in long-axis and 1.2 cm in short axis. Spleen: The partially imaged spleen appear to be mildly enlarged. Bones/joints: Unremarkable. No acute fracture. Soft tissues: Unremarkable. IMPRESSION: 1. Nonspecific mild bronchial wall thickening which can be seen with mild form of bronchitis. Subtle bilateral lower lobe ground-glass haziness could be secondary to bronchitis /bronchiolitis. 2. Shotty mediastinal adenopathy likely reactive. Follow-up is suggested. 3. Cardiomegaly. Electronically signed by: Ramiro Solorzano On 07/04/2020 07:15:08 AM
--- NOTE | 2020-07-04 07:52 | IPNPDOC ---
Text Note Date of Service The patient was seen on 07/04/20. NOTE Subjective: Patient seen and examined this morning at bedside. Says she's feeling well same as yesterday no complaints. Nurse tells me there is no overnight acute events. Still having same urine output. Denies any fevers or chills. Denies chest pain or shortness of breath. Toe feels about the same as yesterday. Objective: Constitutional: Awake and alert, in no apparent distress, full-grown brown, pleasant and cooperative ENT: Sclera are clear. Mucosa is moist. Respiratory: Lungs CTA bilaterally. No respiratory distress. No use of accessory muscles. Cardiovascular: RRR S1 and S2 are normal, no murmur Gastrointestinal: Abdomen is soft, non distended, non tender, BS present. Obese abdomen Musculoskeletal: No lower extremity edema. No joint deformities. RUE 5/5, LUE 5/5, BLE 5/5 Neurologic: No focal neurological deficit. Mental Status: A&O x3, normal affect Skin: Examination of his left foot reveals some erythema on the dorsal aspect of foot which extends from a black necrotic appearing fourth toe, progressed and black all the way down to the base of the toe looks about the same as yesterday. Assessment/plan: 35-year-old male past medical history of hypertension not taking any medications presents to the emergency department because of 3 day history of left foot discomfort. Found to have acute kidney injury, anemia hgb 7, and leukocytosis possibly secondary to left foot cellulitis. Patient admitted to medical unit for further management. # Acute renal failure: Unknown etiology at this. US kidneys. UA. Monitor ins/outs. Dr Howe salvage machine operator consulted. Plan kidney Bx next week. Plan for dialysis 07/05/2020 # Dilated cardiomyopathy: seen on CXR. Echo discussed with Dr. Conley shows reduced ejection fraction and dilated cardiomyopathy. Carvedilol started low- dose and if he needs to be titrated it should be done so slowly every 2-[address] Conley cardiology consulted. Started on isosorbide. # Sinus Tachycardia: Initially on presentation. likely 2/2 cellulitis and pain. Resolved with Pain control IVFs and carvidilol. # Uncontrolled hypertension: Not taking any medications. Carvedilol started. Hydralazine started. Monitor and titrate as needed. Hydralazine IV PRN SBP>160. # Left foot cellulitis: Meets SIRS criteria (Tachy/leukocytosis) Afebrile. IV vancomycin and Cefazolin. IVFs. Lactate normal. BCx negative to date. # Left foot necrotic fourth toe: Dr Bahena crop grain or livestock farmer was consulted evaluated patient, looks like necrotic toe likely started got infected caused the cellulitis. Will re-evaluate patient given progression and discuss surgery with pt. XR foot as above. # Gout: Hx multiple annual gouty episodes. Doesn't appear to be in acute episode. US no fluid to aspirate for analysis. # Anemia: Etiology unclear, could be related to underlying CKD. Fu FOBT. Fu Irone studies. Transfuse 1uPRBC. Transfuse PRN hgb <7. PO iron. # UTI: UA suggestive of UTI. UCx negative. # Obesity: BMI 33.4 complicates care. A1C 5.7% # DVT prophylaxis: Heparin A Jak Hospitalist VS,Silvia, I+O VS, Sulemane, I+O Laboratory Tests 07/03/20 13:22 07/04/20 04:30 Vital Signs Date Time Temp Pulse Resp B/P (MAP) Pulse Ox O2 Delivery O2 Flow Rate FiO2 07/04/20 04:00 98.4 100 20 158/90 (112) 96 Room Air I&O- Last 24 Hours up to 6 AM 07/04/20 06:00 Intake Total 2830 ml Output Total 1275 ml Balance 1555 ml LORA MICHEL MD Jul 04, 2020 07:52
[2020-07-04 08:00] VITALS: BP 160/86
[2020-07-04] MEDS: (RENVELA) SEVELAMER **CARBONate** 800 MG TAB PO SCH ×3 (08:36→17:52)
[2020-07-04] MEDS: PANTOPRAZOLE 40MG VIAL (C9113 PER 1) IV SCH (08:36)
[2020-07-04] MEDS: FERROUS SULFATE 325MG TAB PO SCH (08:36)
[2020-07-04] MEDS: HEPARIN SOD (PORCINE) 5000UNITS/ML 1ML VIAL/SYRINGE SC SCH ×2 (08:37→21:15)
[2020-07-04] MEDS: amLODIPine 10 MG TAB PO SCH (08:38)
[2020-07-04] MEDS: CARVedilol 3.125 MG TAB PO SCH (08:38)
[2020-07-04] MEDS: DOCUSATE SODIUM 100MG CAPSULE PO SCH ×2 (08:38→21:13)
[2020-07-04] MEDS: NITROGLYCERIN 2% OINT 1 GM *U/D* PKT TOP SCH ×2 (08:39→21:14)
[2020-07-04] MEDS: cefTRIAXone SOD 1 GM in D5W MINI-BAG PLUS 50 ML IV SCH (08:47)
[2020-07-04] MEDS ORDERED: SOD POLYSTYRENE SULFONATE SUSP 15 GM/60 ML UD PO ONE (10:00)
--- NOTE | 2020-07-04 10:44 | IPN ---
PROGRESS NOTE DATE: 07/02/2020 SUBJECTIVE: Patient seen and examined. He denies much pain his foot. PHYSICAL EXAMINATION: Vitals are reviewed. T-max 99.1. Labs are reviewed. White blood cell count is elevated to 17.2, hemoglobin is 8.4, creatinine remains elevated at 10.5. Wound cultures growing enterococcus Group C Strep and Staph. Lower extremity examination: There is worsening discoloration of the fourth toe. There appears some new discoloration to the hallux and second toe. ASSESSMENT: A 35-year-old male with cellulitis and vascular insult to left fourth toe. PLAN: Will order an arterial ultrasound to better evaluate his blood flow. His pulses are somewhat weaker to both lower extremities today. He is being evaluated by renal with plans for dialysis. It was discussed with patient that he likely will require amputation of the 4th toe, he understands this. JOAQUIN
[2020-07-04 12:00] VITALS: BP 148/74
[2020-07-04] MEDS: **hydrALAZINE** 10 MG TAB PO SCH ×2 (13:48→21:12)
[2020-07-04] MEDS: ISOSORBIDE DIN (ISORDIL) 10 MG TAB PO SCH ×2 (13:48→22:48)
[2020-07-04 15:29] LABS: CREATININE 24 HOUR, URINE 1180.2 MG/24HR (950-2500); CREATININE, URINE 56.2 MG/DL; TOTAL PROTEIN 24 HOUR URINE 3901.8 MG/24HR (50-150); URINE TOTAL PROTEIN 185.8 MG/DL (0-12)
[2020-07-04 16:00] VITALS: BP 154/72
[2020-07-04] MEDS ORDERED: methylPREDNISolone 500 MG, VIAL MATE ADAPTER 1 EACH in D5W 250 ML IV ONE (18:00)
--- NOTE | 2020-07-04 18:18 | CR ---
CONSULTATION DATE: 07/04/2020 REFERRING PHYSICIAN: Dr. Benedict INDICATION: Cardiomyopathy. HISTORY OF PRESENT ILLNESS: Mr. Flood is a very pleasant, 35-year-old white male who was previously unknown to me. He presented to [facility] two days ago with complaints about pain in his fourth toe on his left foot. The toe was found to be necrotic. Somewhat surprisingly, his blood work revealed renal failure with creatinine 10. The patient otherwise denied any additional symptoms. During his hospitalization he had fairly extensive imaging and the chest x-ray and CT of the chest revealed evidence for cardiomegaly and consequently echocardiogram was obtained. I looked at it yesterday and it revealed a mildly dilated, moderately hypertrophic left ventricle with global hypokinesis and overall ejection fraction in the neighborhood of 20-25%. There were no gross valvular abnormalities even though the anterior mitral leaflet appeared mildly thickened and there was mild mitral insufficiency. I did not see any distinct vegetations per se. Dr. Benedict asked me to see the patient in consultation. In talking to the patient, he is feeling relatively comfortable. He said that besides the pain in his left foot, he denies any chest pain. He denies any shortness of breath. There is no history of palpitations, dizziness, syncope and near syncope. He noticed some pain in his left foot approximately 7-10 days ago. He initially thought it was related to gout which used to be the issue in the past but then on Sunday last week, he noticed some redness. He started soaking the toe in the water with some disinfectants but the following day, the pain progressed and he started noticing that there was a bluish and blackish discoloration on the dorsum of the toe and consequently decided to come to the hospital. He denies any recent fever, chills. He denies any night sweats. There has not been any change in his weight. He does admit that he had a sore tooth approximately one month ago but he said just drinking some cold water helped to alleviate some of the pain and it has not been bothering him since. PAST MEDICAL HISTORY: The patient does not have any routine medical care. He says that during his prior doctor visits, he was always told that he had high blood pressure but it was never treated. He also carries a history of gout. SURGICAL HISTORY: Negative. SOCIAL HISTORY: The patient is , father of one child. 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 No significant alcohol use even though he said he used to drink in his early 20s. No smoking. Denies illicit drugs with the exception of occasional marijuana. FAMILY HISTORY: His father is not known to him. His mother had breast cancer and has diabetes. REVIEW OF SYSTEMS: As per HPI, otherwise essentially negative. He also denies any headache. There has been no shortness of breath, no abdominal pain, diarrhea, nausea, vomiting, peripheral edema. PHYSICAL EXAMINATION: Mr. Flood is a young, 35-year-old man who appears approximately his age. He does not appear acutely or chronically ill. The last set of vital signs: Blood pressure was 160/86. Heart rate was 103. He has been afebrile even though there is one recorded temperature of 99.1. Saturation 98% on room air. His weight was recorded 111 kilograms which did not appreciably change since admission. This is his fourth day in the hospital. He has been making about a liter of urine daily. His JVP is difficult to assess due to his brown and body habitus but it does not appear grossly elevated. Lungs are clear, good air movement. I do not appreciate any crackles, wheezing or rhonchi. Heart exam reveals regular rhythm. I do not appreciate any gallop but he had somewhat muffled heart sounds in the setting of his body habitus. I do not appreciate any murmur, either. No rub. Abdomen is obese but soft. I do not appreciate any hepatosplenomegaly. Extremities are free of edema. Peripheral pulses are of good quality. There is a necrotic left fourth toe. He does have subungual hematoma on his right hand but he clearly remembers that he hit his finger with a hammer about two or three weeks ago and apparently the current appearance is actually much improved. LABORATORIES: As of this morning, basic metabolic panel reveals sodium 138, potassium 5.2, chloride 106, BUN 120, creatinine 10.5 for GFR calculated only 6 and glucose 192. Hemoglobin A1c was 5.9, calcium 9.1, phosphorus 7.6, albumin 3.2. His lipid panel reveals total cholesterol of 117, triglycerides 100, LDL 68 and HDL 29. TSH 1.6. PTH was 535. CBC as of this morning: WBC count 15.2, hemoglobin 8.4, hematocrit 24, platelet count 208. The CBC on presentation on July 01 revealed WBC count 16.6 with hemoglobin 7, hematocrit 29 and platelet count 235,000. In differential, there were 85.6% neutrophils, 7% lymphocytes. Sedimentation rate was 127. INR is 1.6. His urine tox screen was negative. He has SARS PCR negative. ASLO antistreptolysin antibody is very highly positive at 1120. Hepatitis panels are pending. On imaging, the renal ultrasound did not reveal any obstruction and the size of the kidneys is relatively preserved. Chest CT reveals nonspecific airway abnormalities, potentially indicating bronchitis and cardiomegaly. He had also foot x-ray that did not indicate any obvious osteomyelitis. Echocardiogram: As per history of present illness. Electrocardiogram that was performed on the revealed sinus rhythm with left ventricular hypertrophy and nonspecific repolarization abnormalities. I reviewed his telemetry tracing. He remains in sinus rhythm with ventricular rate around 100 beats per minute and no arrhythmias. There were multiple episodes of VT indicated but they all represent an artifact. ASSESSMENT AND PLAN: Mr. Flood is a 35-year-old man who did not have any consistent medical care and presented with necrotic left fourth toe three days ago. The pain in his foot started about a week prior. During his evaluation, he was found to have cardiomyopathy with left ventricular hypertrophy, dilated left ventricle and severe left ventricular dysfunction. The mitral valve has mild insufficiency but no obvious vegetations were seen. He also was found to have renal failure, was quite anemic. I have a difficult time finding unifying diagnosis. Probably the one that comes to mind most obviously is endocarditis that could explain renal failure as well as embolization to his toe and if he should be septic, then possibly also LV dysfunction even though it is less obvious. But yet, he has not had or denies any fever or chills which a relatively strong argument against endocarditis as it is virtually always febrile disease. The other possibility is that he has burned out hypertensive heart disease which would be consistent with abnormalities on his echocardiogram. He possibly can have chronic hypertension related renal failure which would explain the concomitant anemia. The abnormality of his toe is a new development that potentially could be embolic. In any case, at this point, I think it is appropriate to continue supportive management. Even though the endocarditis remains in differential diagnosis with negative blood cultures, I at this point do not believe that we need to pursue urgent transesophageal echocardiogram but it can be considered down the road once his renal function stabilizes and he is on appropriate medications. In the midterm it would not lead to change in his management. His renal failure with ongoing urine production unfortunately limits choices of medicines for LV dysfunction. He is on a small dose of Coreg. I am hesitant to advance it as yet even though it probably can be done within a day or two. I am going to replace his amlodipine by a combination of hydrazine and isosorbide. Once he is dialyzed, then we can advance the mediations further. In the long run, he will need a lot of supportive management. I talked to him extensively about management of congestive heart failure and LV dysfunction and I explained to him that the prognosis at this point is unclear because we do not have a definite diagnosis as yet. But in any case, a long-term outpatient followup will be necessary. I am leaving on vacation for next week and Dr. Wade will provide coverage starting tomorrow morning. Please contact him if any questions or concerns. JOAQUIN
[2020-07-04 20:00] VITALS: BP 158/98
--- NOTE | 2020-07-04 20:21 | IPN ---
PROGRESS NOTE DATE: 07/04/2020 SUBJECTIVE: Patient was seen and examined at the bedside today morning. He is afebrile. His blood pressures are slightly high. He was given one unit of packed red blood cells (PRBC) transfusion. He was also given pulse-dose of steroid, Solu-Medrol 500 mg IV last night. He denies any acute complaints. There is no improvement in the renal function at this time. Patient is going to have a tunneled dialysis catheter placed tomorrow morning. OBJECTIVE: Vital signs: Temperature is 96.9 degrees Fahrenheit, blood pressure 160/86, pulse is 103, respiratory rate of 18, saturating 98% on room air. Intake and output: Urine output recorded is 950 mL yesterday, 775 mL since overnight today. Weight in the bed scale is 111 kg. PHYSICAL EXAMINATION: GENERAL: Patient is awake, alert, oriented times three, he is obese, laying in the bed. HEAD AND NECK EXAM: Extraocular muscles intact. Pupils are equally round and reactive to light. Mucous membranes are moist. Neck is supple. There is no jugular venous distension (JVD). CARDIOVASCULAR: S1, S2, regular rate. No edema of the bilateral lower extremities. RESPIRATORY: Chest is clear to auscultation bilaterally. Bilateral equal air entry. No rales or rhonchi. ABDOMEN: Soft, obese, positive bowel sounds, nontender, no organomegaly. MUSCULOSKELETAL: He has cyanosis of the left 4th toe. CENTRAL NERVOUS SYSTEM (SPINNER TENDER): No focal deficits. Power is 5/5 in all extremities. LABORATORY REVIEW: CBC showed WBC of 17.2, hemoglobin is 8.4, platelets are 208. BMP showed sodium 138, potassium 5.2, chloride 106, bicarbonate 19, BUN 120, creatinine is 10.5. Immunologies and serologies are pending. Microbiology: Blood cultures are all negative so far. Wound culture gram stain also grew Staphylococcus aureus now. He has been started on IV vancomycin. IMAGING: A CT scan of the chest was done yesterday to rule out pulmonary-renal syndrome and it showed nonspecific mild bronchial wall thickening. This can be seen with bronchitis as well. Shotty mediastinal adenopathy likely reactive and there was cardiomegaly. CURRENT INPATIENT MEDICATIONS: Patient's medications were all reviewed by myself. He was given a dose of IV vancomycin yesterday. He was given a dose of Solu-Medrol 500 mg yesterday. He was started on Protonix 40 mg IV. I have ordered a dose of Kayexalate 15 grams by mouth times one dose. I have increased the Coreg dose to 6.25 mg by mouth twice a day and he has also been started on hydralazine 20 mg by mouth every 8 hours with isosorbide 10 mg by mouth every 8 hours. ASSESSMENT AND PLAN: 1. Acute renal failure. Patient has non-oliguric renal failure with proteinuria. He was started on Solu-Medrol yesterday. Next dose will be given today. Patient will get a tunneled hemodialysis catheter placed tomorrow and he will get first session of dialysis tomorrow. 2. Anemia with renal failure and iron deficiency. Patient got one unit of packed red blood cells (PRBC) transfusion yesterday. He will start receiving Venofer and Aranesp with dialysis. 3. Hypertension. Blood pressure was still elevated. His Coreg dose was increased by myself. He has also been started on hydralazine and isosorbide by the medical team. 4. Secondary hyperparathyroidism. He has been started on Renvela and once he starts dialysis he will be started on calcitriol as well. 5. Metabolic acidosis. Patient is being started on dialysis. Acidosis will get better with dialysis. No need of oral bicarbonate administration. 6. Hyperkalemia. Patient was given a dose of Kayexalate today.
[2020-07-04] MEDS: CARVedilol 6.25 MG TAB PO SCH (21:13)
[2020-07-05] VITALS (9 sets, daily range): BP systolic 124–168; BP diastolic 59–94
[2020-07-05] MEDS: **hydrALAZINE** 10 MG TAB PO SCH ×3 (05:26→21:01)
[2020-07-05] MEDS: ISOSORBIDE DIN (ISORDIL) 10 MG TAB PO SCH ×3 (05:27→21:01)
[2020-07-05 05:57] LABS: HEMOGLOBIN 7.2 g/dl (13.5-17.5); MEAN CORPUSCULAR HEMOGLOBIN 29.4 pg (27.0-33.0); MEAN CORPUSCULAR HGB CONC 32.7 g/dl (32.0-36.5); MEAN CORPUSCULAR VOLUME 89.8 fl (80.0-96.0); PLATELET COUNT, AUTOMATED 207 10^3/uL (150-450); RED BLOOD COUNT 2.45 10^6/uL (4.30-6.10); WHITE BLOOD COUNT 17.7 10^3/uL (4.0-10.0)
[2020-07-05 06:26] LABS: CALCIUM LEVEL 9.4 MG/DL (8.5-10.1); CREATININE FOR GFR 10.9 MG/DL (0.70-1.30); GLOMERULAR FILTRATION RATE 5.7 (>60); POTASSIUM SERUM 4.7 MEQ/L (3.5-5.1); VANCOMYCIN RANDOM 20.5 UG/ML
--- NOTE | 2020-07-05 07:53 | IPNPDOC ---
Text Note Date of Service The patient was seen on 07/05/20. NOTE Subjective: Patient seen and examined this morning at bedside. Says she's feeling well same as yesterday no complaints. Nurse tells me there is no overnight acute events. Still having same urine output. Denies any fevers or chills. Denies chest pain or shortness of breath. Toe feels about the same as yesterday. Hemoglobin low in this morning and will require a blood transfusion Objective: Constitutional: Awake and alert, in no apparent distress, full-grown brown, pleasant and cooperative ENT: Sclera are clear. Mucosa is moist. Respiratory: Lungs CTA bilaterally. No respiratory distress. No use of accessory muscles. Cardiovascular: RRR S1 and S2 are normal, no murmur Gastrointestinal: Abdomen is soft, non distended, non tender, BS present. Obese abdomen Musculoskeletal: No lower extremity edema. No joint deformities. RUE 5/5, LUE 5/5, BLE 5/5 Neurologic: No focal neurological deficit. Mental Status: A&O x3, normal affect Skin: Examination of his left foot reveals some erythema on the dorsal aspect of foot which extends from a black necrotic appearing fourth toe, progressed and black all the way down to the base of the toe looks about the same as yesterday. Assessment/plan: 35-year-old male past medical history of hypertension not taking any medications presents to the emergency department because of 3 day history of left foot discomfort. Found to have acute kidney injury, anemia hgb 7, and leukocytosis possibly secondary to left foot cellulitis. Patient admitted to medical unit for further management. # Acute renal failure: Unknown etiology at this. US kidneys. UA. Monitor ins/outs. Dr Howe manager wellness consulted. Plan kidney Bx next week. Plan for dialysis catheter and HD today/tomorrow. # Dilated cardiomyopathy: seen on CXR. Echo discussed with Dr. Conley shows reduced ejection fraction and dilated cardiomyopathy. Carvedilol started low- dose and if he needs to be titrated it should be done so slowly every 2-[address] Conley cardiology consulted. Started on isosorbide. # Sinus Tachycardia: Initially on presentation. likely 2/2 cellulitis and pain. Resolved with Pain control IVFs and carvidilol. # Uncontrolled hypertension: Not taking any medications. Carvedilol started. Hydralazine started. Monitor and titrate as needed. Hydralazine IV PRN SBP>160. # Left foot cellulitis: Meets SIRS criteria (Tachy/leukocytosis) Afebrile. IV vancomycin and Cefazolin. IVFs. Lactate normal. BCx negative to date. # Left foot necrotic fourth toe: Dr Bahena director revenue was consulted evaluated patient, looks like necrotic toe likely started got infected caused the cellulitis. Anticipate toe amputation OR Sunday # Gout: Hx multiple annual gouty episodes. Doesn't appear to be in acute episode. US no fluid to aspirate for analysis. # Anemia: Etiology unclear, could be related to underlying CKD. Fu FOBT. Fu Irone studies. Transfused 2 uPRBC total. Transfuse PRN hgb <7. PO iron. # UTI: UA suggestive of UTI. UCx negative. # Obesity: BMI 33.4 complicates care. A1C 5.7% # DVT prophylaxis: Heparin A Jak Hospitalist VS,Silvia, I+O VS, Sulemane, I+O Laboratory Tests 07/05/20 05:23 Vital Signs Date Time Temp Pulse Resp B/P (MAP) Pulse Ox O2 Delivery O2 Flow Rate FiO2 07/05/20 05:27 139/79 07/05/20 04:00 97.3 97 18 93 Room Air I&O- Last 24 Hours up to 6 AM 07/05/20 05:59 Intake Total 1425 ml Output Total 1000 ml Balance 425 ml LORA MICHEL MD Jul 05, 2020 07:53
[2020-07-05] MEDS ORDERED: LIDOCAINE 1% SDV 5ML VIAL SC PRN (08:00)
[2020-07-05] MEDS ORDERED: SODIUM CHLORIDE 0.9% 1000ML IV PRN (08:00)
[2020-07-05] MEDS: (RENVELA) SEVELAMER **CARBONate** 800 MG TAB PO SCH ×3 (09:50→18:16)
[2020-07-05] MEDS: PANTOPRAZOLE 40MG VIAL (C9113 PER 1) IV SCH (09:51)
[2020-07-05] MEDS: HEPARIN SOD (PORCINE) 5000UNITS/ML 1ML VIAL/SYRINGE SC SCH ×2 (09:51→20:57)
[2020-07-05] MEDS: cefTRIAXone SOD 1 GM in D5W MINI-BAG PLUS 50 ML IV SCH (09:51)
[2020-07-05] MEDS: FERROUS SULFATE 325MG TAB PO SCH (09:53)
[2020-07-05] MEDS: NITROGLYCERIN 2% OINT 1 GM *U/D* PKT TOP SCH (09:53)
[2020-07-05] MEDS: CARVedilol 6.25 MG TAB PO SCH ×2 (09:54→20:59)
[2020-07-05] MEDS: CALCITRIOL 0.25 MCG CAP (S0169) PO SCH (09:54)
[2020-07-05] MEDS: DOCUSATE SODIUM 100MG CAPSULE PO SCH ×2 (09:54→20:57)
--- NOTE | 2020-07-05 10:31 | ECHO ---
DATE OF PROCEDURE: 07/03/2020 Age: 35 Gender: Male Height: 183 cm Weight: 112 kg REFERRING PHYSICIAN: Gold Benedict MD. INDICATION: Cardiomegaly, suspicion for cardiac source of emboli. MEASUREMENTS: IVC 2.2 cm Aorta 3.3 cm LA 5.1 cm IVS 1.7 cm LV 5.8 cm LVPW 1.8 cm Mitral E wave velocity 113 cm/s Mitral A wave 50 cm/s E prime septal 4.7 cm/s E prime lateral 8.5 cm/s FINDINGS: This study is of good technical quality. The patient is in sinus rhythm with heart rate around 100 beats per minute. Left ventricle is mildly dilated. There is moderate left ventricular hypertrophy. There is global left ventricular hypokinesis with estimated overall left ventricular ejection fraction around 20% to 25%. Right ventricle appears grossly normal size. The left atrium is moderately enlarged. The right atrium is also at least mildly enlarged. The aortic valve appears normal. The mitral valve is normally mobile. On the parasternal long axis views, it appears that there might be thickening or possibly even small vegetation on anterior mitral leaflet, but no definite vegetation is visualized as such. Tricuspid valve appears normal. Pulmonic valve was not well seen. Trivial pericardial effusion is noted. Inferior vena cava is dilated and has no appreciable collapse with inspiration indicative of high central venous pressure. Aortic root is normal. Aortic arch and abdominal aorta were not well seen. Doppler interrogation reveals no aortic stenosis or insufficiency. There is mild mitral insufficiency and no significant tricuspid insufficiency. Consequently, I was unable to estimate pulmonary artery pressure. Mitral inflow pattern and tissue Doppler imaging of the mitral annulus revealed likely grade 2 or 3 diastolic dysfunction, even though there is effusion of mitral E and A waves due to underlying tachycardia. It is likely that the patient has very high left ventricular and diastolic pressure. CONCLUSIONS: 1. Study is of good technical quality, underlying sinus rhythm with heart rate around 100 BPM. 2. Mildly dilated, moderately hypertrophy left ventricle with global left ventricular systolic dysfunction and estimated EF around 20% to 25%. At least grade 2 diastolic dysfunction. 3. No aortic valvular disease. 4. Cannot completely rule out the presence of small vegetation on anterior mitral leaflet. Mild mitral insufficiency. 5. Competent tricuspid valve. 6. Elevated central venous pressure. 7. Unable to estimate pulmonary artery pressure. 8. Trivial pericardial effusion. Results of this study were discussed with Dr. Benedict. [facility] MED[facility] CENTERShonna
[2020-07-05] MEDS ORDERED: DESMOPRESSIN ACETATE IV ONE (13:00)
[2020-07-05] MEDS ORDERED: NS IV ONE (13:00)
[2020-07-05 13:12] LABS: HEPATITIS B SURFACE ANTIBODY NEGATIVE (POSITIVE)
[2020-07-05 13:19] LABS: HEPATITIS B SURFACE ANTIGEN NEGATIVE (NEGATIVE)
[2020-07-05 13:47] LABS: HEPATITIS C VIRUS ABY INDEX 0.5 INDEX (<0.8)
[2020-07-05 13:48] LABS: HEPATITIS B CORE ANTIBODY IGM NEGATIVE (NEGATIVE)
--- NOTE | 2020-07-05 14:34 | REP ---
INDICATION: s/p HD cath placement. COMPARISON: 07/01/2020. TECHNIQUE: Single portable view of the chest is performed. FINDINGS: Cardiomegaly is unchanged. There is mild bilateral peribronchial thickening similar to the prior study. No focal infiltrate is seen. Mediastinal silhouette is unchanged. Right central venous catheter is seen with tip in the superior vena cava. IMPRESSION: Stable cardiomegaly and bilateral peribronchial thickening. <Electronically signed by Timothy Lemus > 07/05/20 [id number]
[2020-07-05] MEDS: DARBEPOETIN 200MCG/0.4ML *DIALYSIS* SYRINGE (J0882 PER 1MCG) IV SCH (14:35)
--- NOTE | 2020-07-05 14:47 | RO ---
OPERATIVE NOTE DATE OF OPERATION: 07/05/2020 PROCEDURE: Right internal jugular dialysis catheter. PREPROCEDURE DIAGNOSIS: Renal failure. POSTPROCEDURE DIAGNOSIS: Renal failure. PROCEDURE PERFORMED BY: Royce Villarreal D.O. OUTSIDE PROPERTY AGENT: None. ANESTHESIA: 1% Lidocaine 10 mL used subcutaneously. DESCRIPTION OF PROCEDURE: Informed consent was obtained. Time-out was performed with two patient identifiers, identifying correct site and correct procedure. The right IJ was prepped and draped in a sterile manner with chlorhexidine and full sterile barrier precautions. The right IJ was identified sterilely under ultrasound and the 1% Lidocaine was injected subcutaneously over the site. The Margie syringe was then introduced into the right IJ on the first pass with return of venous blood flow. A wire was fed through the needle and the needle was removed. The 15 cm dialysis catheter was then placed via modified Seldinger technique. The wire was removed. This was sutured in place at 15 cm. Both ports returned venous blood flow and flushed easily. Postprocedure chest x-ray showed adequate placement with the tip in the SVC. Sterile impregnated dressing was placed over the site. There were no observed complications. Heparin was not used as I was directed that the patient is going immediately to dialysis and therefore, they will flush it then. It was only flushed with saline.
[2020-07-05] MEDS: IRON SUCROSE 100MG 5ML VIAL (J1756 PER 1MG) IV SCH (16:07)
[2020-07-05] MEDS ORDERED: VANCOMYCIN HCL 750 MG, VIAL MATE ADAPTER 1 EACH in D5W 250 ML IV ONE (17:00)
[2020-07-05] MEDS ORDERED: methylPREDNISolone 500 MG, VIAL MATE ADAPTER 1 EACH in D5W 250 ML IV ONE (18:00)
[2020-07-05 20:22] LABS: HEMATOCRIT 24.4 % (42.0-52.0); HEMOGLOBIN 8.2 g/dl (13.5-17.5)
[2020-07-05] MEDS: ACETAMINOPHEN TAB 650MG DOSE (2X325MG) PO PRN (20:56)
--- NOTE | 2020-07-05 23:03 | IPN ---
NEPHROLOGY PROGRESS NOTE DATE: 07/05/2020 SUBJECTIVE: The patient was seen and examined at the bedside today morning. There is no significant improvement in the renal function. He got a second dose of pulse steroids last night. The patient is going to have a catheter placed today for initiation of hemodialysis. He denies any nausea, vomiting, chest pain or shortness of breath. He continues to be on IV antibiotics for a left foot infection. OBJECTIVE: VITAL SIGNS: Temperature is 98.9 degrees Fahrenheit, blood pressure 168/92, pulse is 114, respiratory rate of 18, saturating 94% on room air. INTAKE AND OUTPUT: Urine output recorded as 1.7 liters yesterday. Weight in the bed scale is 107.4 kg. PHYSICAL EXAMINATION: GENERAL APPEARANCE: The patient is awake, alert, oriented x3, obese body habitus, sitting up in the bed in no apparent distress. HEAD AND NECK: Extraocular muscles intact. Pupils are equally round and reactive to light. Mucous membranes are moist. Neck is supple. There is no jugular venous distention. CARDIOVASCULAR: S1, S2, regular rate. EXTREMITIES: No edema of the bilateral lower extremities. RESPIRATORY: Chest is clear to auscultation bilaterally. Bilaterally currently no rales or rhonchi. ABDOMEN: Soft, positive bowel sounds, nontender, no organomegaly. MUSCULOSKELETAL: He has cyanosis of the left fourth toe. ELECTRICAL TRYOUT PERSON: No focal deficits. Power is 5/5 in all extremities. LAB REVIEW: CBC showed a WBC of 17.7, hemoglobin is 7.2, platelet count 207. Twenty-four hour urine protein is 3.9 grams. BMP showed sodium 137, potassium 4.7, chloride 104, bicarbonate 18, BUN 129, creatinine is 10.9. Glucose is 236. Immunology results are pending and serology results are also pending. CURRENT INPATIENT MEDICATIONS: The patient's medications were all reviewed by myself. He has received two doses of Solu-Medrol 500 mg IV so far. Today will be the third dose. He is also being started on Aranesp and Venofer with dialysis. He continues to be on Ceftriaxone and Vancomycin. The patient will be given a dose of DDAVP 32 mcg before the procedure today. ASSESSMENT AND PLAN: 1. Acute renal failure there are no signs of improvement of the renal function. This patient is going to get a temporary dialysis catheter. I.R. is not available for tunneled dialysis catheter placement. After the catheter placement, the patient will get dialyzed today. I will do another session follow up hemodialysis tomorrow morning and will try to schedule his renal biopsy tomorrow. 2. Hyperkalemia it has resolved with the use of Kayexalate yesterday, and he will be dialyzed with a 2K bath. 3. Metabolic acidosis it should resolve with the hemodialysis session. 4. Anemia and acute renal failure - The patient will be getting one unit of PRBC transfusion, and he is also starting Aranesp and Venofer with dialysis. 5. Nephrotic range proteinuria - The patient is getting Solu-Medrol tomorrow morning. He will be started on Prednisone. Renal biopsy will be done tomorrow afternoon or the day after tomorrow. Autoimmune serology is pending. 6. Infection of the left fourth toe - The patient continues to be on Ceftriaxone and Vancomycin. Podiatry is on board. 7. Secondary hyperparathyroidism - continue current dose of Calcitriol 0.25 mcg Sunday, Sunday, Sunday. 8. Hypertension - blood pressure is controlled with Coreg and Hydralazine with Isosorbide. Optimization of fluid status will also help improved the blood pressure. 9. Chronic kidney disease, mineral bone disease - continue Renvela with meals.
[2020-07-06] VITALS (12 sets, daily range): BP systolic 152–190; BP diastolic 74–107
[2020-07-06 04:45] LABS: HEMATOCRIT 22.8 % (42.0-52.0); HEMOGLOBIN 7.4 g/dl (13.5-17.5); MEAN CORPUSCULAR HEMOGLOBIN 29.6 pg (27.0-33.0); MEAN CORPUSCULAR HGB CONC 32.5 g/dl (32.0-36.5); MEAN CORPUSCULAR VOLUME 91.2 fl (80.0-96.0); PLATELET COUNT, AUTOMATED 163 10^3/uL (150-450); WHITE BLOOD COUNT 18.4 10^3/uL (4.0-10.0)
[2020-07-06 05:10] LABS: CALCIUM LEVEL 8.7 MG/DL (8.5-10.1); CREATININE FOR GFR 7.97 MG/DL (0.70-1.30); GLOMERULAR FILTRATION RATE 8.2 (>60); POTASSIUM SERUM 3.9 MEQ/L (3.5-5.1); VANCOMYCIN RANDOM 23.7 UG/ML
[2020-07-06] MEDS: **hydrALAZINE** 10 MG TAB PO SCH ×2 (05:21→13:14)
[2020-07-06] MEDS: ISOSORBIDE DIN (ISORDIL) 10 MG TAB PO SCH ×2 (05:21→13:14)
[2020-07-06] MEDS ORDERED: HumaLOG INSULIN (NovoLOG) PER UNIT SC ONE (06:00)
--- NOTE | 2020-07-06 07:59 | IPN ---
PROGRESS NOTE DATE: 07/06/2020 SUBJECTIVE: The patient is seen and examined. Denies new complaints. He has still some soreness, but not very much change from yesterday in his toe. OBJECTIVE: T-max 99.2. Lower extremity examination with persisting erythema of the dorsal foot extending from the fourth toe. LABORATORY DATA: White blood cell count is elevated at 8.4, hemoglobin 7.4. His glucose this morning was 528 and creatinine 7.97 ASSESSMENT: This is a 35-year-old male with gangrene left fourth toe. PLAN: Await arterial ultrasound. Will plan for fourth toe amputation tomorrow morning. He is to be n.p.o. at midnight.
[2020-07-06] MEDS ORDERED: SODIUM CHLORIDE 0.9% 1000ML IV PRN (08:00)
[2020-07-06] MEDS: (RENVELA) SEVELAMER **CARBONate** 800 MG TAB PO SCH ×3 (08:00→17:06)
[2020-07-06] MEDS ORDERED: VANCOMYCIN HCL 1,000 MG, VIAL MATE ADAPTER 1 EACH in D5W 250 ML IV SCH (09:00)
[2020-07-06] MEDS: IRON SUCROSE 100MG 5ML VIAL (J1756 PER 1MG) IV SCH (10:18)
[2020-07-06 10:19] LABS: ALBUMIN 3.69 GM/DL (3.29-5.55); ALBUMIN % 48.6 % (55.8-66.1); ALPHA-1-GLOBULINS 0.46 GM/DL (0.17-0.41); ALPHA-2-GLOBULINS 0.76 GM/DL (0.42-0.99); BETA-1-GLOBULINS 0.39 GM/DL (0.28-0.60); BETA-1-GLOBULINS % 5.1 % (4.7-7.2); BETA-2-GLOBULINS 0.39 GM/DL (0.19-0.55)
[2020-07-06 10:20] LABS: BETA-2-GLOBULINS % 5.1 % (3.2-6.5); GAMMA GLOBULIN % 25.2 % (11.1-18.8); GAMMA GLOBULINS 1.92 GM/DL (0.65-1.58)
[2020-07-06] MEDS ORDERED: LIDOCAINE 1% MDV 20ML VIAL As Ordered ONE (11:01)
[2020-07-06] MEDS ORDERED: LABETALOL 100MG/20ML VIAL As Ordered ONE (11:17)
[2020-07-06] MEDS ORDERED: hydrALAZINE 20MG/ML 1ML VIAL (J0360 PER 20MG) As Ordered ONE (11:29)
[2020-07-06] MEDS ORDERED: LABETALOL 100MG/20ML VIAL IV ONE (11:30)
[2020-07-06] MEDS ORDERED: hydrALAZINE 20MG/ML 1ML VIAL (J0360 PER 20MG) IV ONE (12:00)
[2020-07-06] MEDS ORDERED: GLUCOSE 4GM CHEW TABLET PO PRN (13:00)
[2020-07-06] MEDS ORDERED: DEXTROSE 50% 50 ML SYRINGE IV PRN (13:00)
[2020-07-06] MEDS ORDERED: GLUCAGON INJ 1MG VIAL SC PRN (13:00)
[2020-07-06] MEDS: cefTRIAXone SOD 1 GM in D5W MINI-BAG PLUS 50 ML IV SCH (13:09)
[2020-07-06] MEDS: PANTOPRAZOLE 40MG VIAL (C9113 PER 1) IV SCH (13:09)
[2020-07-06] MEDS: HumaLOG INSULIN (NovoLOG) PER UNIT SC SCH ×3 (13:10→21:02)
[2020-07-06] MEDS: DOCUSATE SODIUM 100MG CAPSULE PO SCH ×2 (13:10→21:03)
[2020-07-06] MEDS: HEPARIN SOD (PORCINE) 5000UNITS/ML 1ML VIAL/SYRINGE SC SCH ×3 (13:10→22:55)
[2020-07-06] MEDS: FERROUS SULFATE 325MG TAB PO SCH (13:10)
[2020-07-06] MEDS: CARVedilol 6.25 MG TAB PO SCH ×2 (13:13→21:04)
--- NOTE | 2020-07-06 15:26 | REP ---
INDICATION: PVD, gangrene COMPARISON: None. TECHNIQUE: Real time lemus scale and color Doppler evaluation of the bilateral lower extremity arterial vasculature using linear high frequency transducer. FINDINGS: Lemus scale and color images demonstrate marked bilateral atheromatous plaquing with no obvious focal areas of stenosis or occlusion. Doppler interrogation demonstrates primarily normal triphasic arterial wave patterns although monophasic wave patterns are noted to the bilateral distal posterior tibial and anterior tibial arteries with increased diastolic flow which may be related hyperemia and wound healing to the bilateral feet. KENYETTA values were not obtainable due to noncompressibility. Peak systolic velocities (cm/sec) Common femoral artery: Right 124.0; Left 88.6 Profunda femoris: Right 91.0; Left 120.9 SFA (proximal): Right 88.9; Left 115.7 SFA (mid): Right 122.3; Left 124.9 SFA (distal): Right 119.8; Left 123.0 Popliteal artery: Right 61.9; Left 53.3 REJI (prox.): Right 58.6; Left 74.6 Tibioperoneal trunk: Right 51.6; Left 39.4 MOLDER (prox.): Right 55.5; Left 83.6 MOLDER (distal): Right 47.1; Left 82.6 REJI (distal): Right 87.9; Left 119.3 IMPRESSION: Marked bilateral atheromatous disease somewhat out of proportion given the patient's age. However, no focal areas of stenosis or occlusion are identified. <Electronically signed by Alton Rivera > 07/06/20 [id number]
[2020-07-06] MEDS ORDERED: **VANCO AFTER HD** MISC XX SCH (16:00)
[2020-07-06] MEDS ORDERED: VANCOMYCIN HCL 500 MG in D5W MINI-BAG PLUS 100 ML IV ONE (16:00)
[2020-07-06 16:11] LABS: ANTI DS-DNA AB Negative (Negative); ANTI-GLOMERULAR BASEMENT MEMB 3 units (0-20); ANTINUCLEAR ANTIBODIES DIRECT Negative (Negative); CARDIOLIPIN IGA ANTIBODY <9 APL U/mL (0-11); CARDIOLIPIN IGG ANTIBODY <9 GPL U/mL (0-14); CARDIOLIPIN IGM ANTIBODY <9 MPL U/mL (0-12)
--- NOTE | 2020-07-06 16:29 | IPNPDOC ---
Text Note Date of Service The patient was seen on 07/06/20. NOTE Subjective: Patient denied fever, chills, nausea, vomiting, diarrhea. No any acute events overnight Objective: GENERAL APPEARANCE: NAD HEENT: no scleral icterus, no JVD, EOMI CARDIOVASCULAR: S1S2 LUNGS: CTA ABDOMEN: soft & not tender w palpitation MUSCULOSKELETAL: Left foot covered with dressing, no any discharge INTEGUMENT: no generalized pallor NEUROLOGICAL: cranial nerve function from 2-12 intact intact, follows commands, speech not dysarthric Assessment and plan Patient is 35 years old male with past medical history of hypertension, noncompliant to his medications was found to have acute kidney injury, anemia, sepsis and uncontrolled hypertension Sepsis Patient has leukocytosis, tachycardia, tachypnea and source of infection is left fourth toe 2/2 gangrene Amputation will be done by Dr. Newman Continue antibiotics Acute renal failure Unknown etiology Patient had significant nephrotic proteinuria Await kidney biopsy result, it was done on 07/06/20 Nephrology team follows him Continue dialysis per nephrology team Continue steroid Autoimmune serology pending. Hyperkalemia Resolved Metabolic acidosis Resolved Continue dialysis Anemia and acute renal failure Patient received 1 unit of blood transfusion on 07/05/20 Continue Aralars and Venofer Will check stool for occult blood left fourth toe gangrene/cellulitis of left foot Unknown etiology. Could be secondary to underlying vasculitis Continue treatment with ceftriaxone and vancomycin Ict Managers plan to do amputation Secondary hyperparathyroidism Continue catheter will Hypertension Labetalol IV when necessary added Continue carvedilol and hydralazine with isosorbide Dilated cardiomyopathy: seen on CXR. Echo discussed with Dr. Conley shows reduced ejection fraction and dilated cardiomyopathy. Carvedilol started low-dose and if he needs to be titrated it should be done so slowly every 2-[address] Conley cardiology consulted. Started on isosorbide. Gout Hx multiple annual gouty episodes. Doesn't appear to be in acute episode. US no fluid to aspirate for analysis Obesity BMI 33.4 complicates care. A1C 5.7% VS,Fishbone, I+O VS, Fishbone, I+O Laboratory Tests 07/05/20 20:09 07/06/20 04:12 Vital Signs Date Time Temp Pulse Resp B/P (MAP) Pulse Ox O2 Delivery O2 Flow Rate FiO2 07/06/20 13:50 98.4 104 18 173/86 (882) 98 Room Air I&O- Last 24 Hours up to 6 AM 07/06/20 06:00 Intake Total 1110 ml Output Total 500 ml Balance 610 ml ELPIDIO FINN DO Jul 06, 2020 16:29
[2020-07-06] MEDS: LABETALOL 100MG/20ML VIAL IV PRN ×3 (18:00→23:05)
[2020-07-06] MEDS: ISOSORBIDE DIN. (ISORDIL) 20 MG TAB PO SCH (21:05)
[2020-07-06] MEDS: **hydrALAZINE HCL** 25 MG TAB PO SCH (21:05)
--- NOTE | 2020-07-06 23:18 | RO ---
OPERATIVE NOTE DATE OF OPERATION: 07/06/2020 PROCEDURE: Ultrasound guided left renal biopsy. INDICATION: Acute renal failure requiring dialysis and nephrotic range proteinuria. CONSENT: Informed and written consent was obtained from the patient before the procedure. ANESTHESIA: 1% lidocaine local anesthesia was used. DESCRIPTION OF PROCEDURE: The patient was lying down on the table in the prone position comfortably. Procedure had already been explained to the patient. Both kidneys were localized with ultrasound. The left kidney was marked for the renal biopsy. The patient was prepped and draped in sterile fashion. Proper infection control precautions were taken. 15 cc of 1% lidocaine was injected. Initially with a 25 gauge needle and later on with a long spinal needle. Blood pressure was checked right before the rest of the procedure. His blood pressure was high. The patient needed 10 mg of labetalol IV and 20 mg of hydralazine IV before the rest of the procedure could be done. 17 gauge introducer needle was inserted under direct ultrasound vision all the way up to the renal capsule. Later on 18 gauge kidney biopsy needle was inserted through the introducer. A total of 4 passes were made and two good core biopsy specimens were received. Specimens were processed and sent to the pathology department. Post procedure kidney was looked up with ultrasound for any complications. No hematoma was noted. COMPLICATIONS: None. ESTIMATED BLOOD LOSS: Less than 5 ml. POST BIOPSY ORDERS: The patient was sent to the holding area. Four hours of complete bed rest with bedside commode privileges were advised. Vital signs q 15 minutes for initial 2 hours and then q 30 minutes for a later 2 hours. M.D. to be called for hypotension or hematuria. The patient is inpatient and [facility] will be [facility]
[2020-07-07] VITALS: BP 156/82
[2020-07-07] MEDS: LABETALOL 100MG/20ML VIAL IV PRN (03:51)
[2020-07-07 04:00] VITALS: BP 158/88
[2020-07-07 05:38] LABS: BASO % 0.1 % (0.0-1.0); HEMATOCRIT 26.4 % (42.0-52.0); LYMPH # 0.5 10^3/uL (1.5-5.0); LYMPH % 3.1 % (24.0-44.0); MEAN CORPUSCULAR HEMOGLOBIN 30.6 pg (27.0-33.0); MEAN CORPUSCULAR HGB CONC 34.1 g/dl (32.0-36.5); MEAN CORPUSCULAR VOLUME 89.8 fl (80.0-96.0); MONO % 5.9 % (0.0-5.0); NEUTROPHILS # 14.4 10^3/uL (1.5-8.5); NEUTROPHILS % 89.3 % (36.0-66.0); PLATELET COUNT, AUTOMATED 156 10^3/uL (150-450); RED BLOOD COUNT 2.94 10^6/uL (4.30-6.10); WHITE BLOOD COUNT 16.1 10^3/uL (4.0-10.0)
[2020-07-07 06:01] LABS: ALBUMIN 2.7 GM/DL (3.2-5.2); BILIRUBIN,TOTAL 0.3 MG/DL (0.2-1.0); CALCIUM LEVEL 8.3 MG/DL (8.5-10.1); CREATININE FOR GFR 6.7 MG/DL (0.70-1.30); POTASSIUM SERUM 3.8 MEQ/L (3.5-5.1); TOTAL PROTEIN 6.8 GM/DL (6.4-8.2)
[2020-07-07] MEDS ORDERED: LIDOCAINE 1% SDV 30ML VIAL As Ordered ONE (07:54)
[2020-07-07] MEDS ORDERED: BUPIVACAINE HCL 0.5% 30 ML VIAL As Ordered ONE (07:54)
--- NOTE | 2020-07-07 07:59 | IPN ---
PROGRESS NOTE DATE: 07/06/2020 SUBJECTIVE: The patient was seen and examined at the bedside today morning during hemodialysis procedure. He is tolerating the hemodialysis procedure well. His hemoglobin level had dropped again. He is getting a blood transfusion during dialysis as well. After dialysis I plan to do his kidney biopsy as well. He got a third dose of IV Solu-Medrol last night. OBJECTIVE: VITAL SIGNS: Temperature is 98.3 degrees Fahrenheit, blood pressure is 154/80, pulse is 99, respiratory rate is 18, saturating 97% on room air. INTAKE AND OUTPUT: Urine output recorded as 200 ml, ultrafiltration with hemodialysis first session was 500 ml yesterday. Weight on the bed scale is 111.6 kg. GENERAL: The patient is awake, alert and oriented x3 laying in bed, getting hemodialysis done. HEAD AND NECK EXAM: Extraocular muscles are intact. Pupils equally round and reactive to light. Mucous membranes are moist. NECK: Supple. He has a right IJ non-tunneled hemodialysis catheter being used for dialysis. CARDIOVASCULAR: S1 and S2. Regular rate. No edema of the bilateral lower extremities. RESPIRATORY: Chest is clear to auscultation bilaterally. Bilateral equal air entry. No rales or rhonchi. ABDOMEN: Soft, obese. Positive bowel sounds. Nontender. No organomegaly. MUSCULOSKELETAL: No clubbing. He has cyanosis of the left third toe. 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 Power is 5/5 in all extremities. LABORATORY DATA: CBC showed a WBC of 18.4, hemoglobin 7.4, platelets are 163,000. BMP showed a sodium of 134, potassium 3.9, chloride 102, bicarbonate 18, BUN 82, creatinine is 7.9. Glucose 528. Vancomycin level is 23.7. Immunology: RONY is negative. ANCA is negative. Myeloperoxidase antibody is negative. Anti-double stranded DNA antibody is negative. Anti-GBM antibody is negative. Anticardiolipin is negative. Microbiology: Repeat blood cultures from July 05 are negative. IMAGING: Bilateral lower extremity arterial study was done, it showed marked bilateral atheromatous disease, somewhat out of proportion given the patient's age. No focal areas of stenosis or occlusions were identified. CURRENT INPATIENT MEDICATIONS: The patient continues to be on IV Ceftriaxone and Vancomycin. His Coreg dose has been increased to 12.5 mg p.o. twice a day. He is also receiving Hydralazine and Hydralazine dose has been increased to 25 mg p.o. three times a day, Isosorbide Dinitrate dose has been changed to 20 mg p.o. three times a day. I have started the patient on prednisone 60 mg p.o. daily starting tomorrow morning. ASSESSMENT AND PLAN: 1. Acute renal failure with nephrotic range proteinuria. Patient is getting dialysis now. He is status post pulse steroids 500 mg x3 doses, left sided ultrasound guided renal biopsy will be done today. 2. Hypertension. Blood pressure is not controlled. As mentioned above, Coreg, Hydralazine and Isosorbide dose has been increased. 3. Nephrotic range proteinuria. Continue Prednisone after finishing the Solu-Medrol. I am hopeful that we will get a preliminary biopsy result from pathology department by the end of this week. 4. Infection of the left 4th toe. The patient is getting IV antibiotics. Podiatry is planning to do the amputation tomorrow. Arterial studies showed atherosclerotic disease in the extremities. 5. Secondary hyperparathyroidism. Continue current dose of Calcitriol. 6. Chronic kidney disease mineral bone disease. Continue current dose of Renvela. 7. Dilated cardiomyopathy. The patient had an ejection of 20-25%. Volume status is being optimized with dialysis and hypertension management is as mentioned above. 8. Anemia associated with renal failure. He has been started on Venofer and Aranesp with dialysis and he is also getting 1 unit of PRBC transfusion today.
[2020-07-07] MEDS: (RENVELA) SEVELAMER **CARBONate** 800 MG TAB PO SCH ×3 (08:00→17:33)
[2020-07-07] MEDS: PANTOPRAZOLE 40MG VIAL (C9113 PER 1) IV SCH (08:14)
[2020-07-07] MEDS: HumaLOG INSULIN (NovoLOG) PER UNIT SC SCH ×4 (08:15→21:09)
[2020-07-07] MEDS: predniSONE 20 MG TAB PO SCH (08:15)
[2020-07-07] MEDS ORDERED: SODIUM CHLORIDE 0.9% 1000ML IV PRN (08:15)
[2020-07-07] MEDS: CALCITRIOL 0.25 MCG CAP (S0169) PO SCH (08:15)
[2020-07-07] MEDS: FERROUS SULFATE 325MG TAB PO SCH (08:16)
[2020-07-07] MEDS: DOCUSATE SODIUM 100MG CAPSULE PO SCH ×2 (08:16→21:09)
[2020-07-07] MEDS: CARVedilol 6.25 MG TAB PO SCH ×2 (08:29→21:08)
[2020-07-07] MEDS: **hydrALAZINE HCL** 25 MG TAB PO SCH ×2 (09:00→15:42)
[2020-07-07] MEDS: ISOSORBIDE DIN. (ISORDIL) 20 MG TAB PO SCH ×3 (09:00→21:08)
[2020-07-07] MEDS ORDERED: VANCOMYCIN INTERMITTENT/PULSE DOSING BY CLINICAL PHARMACIST PER DOSING PROTOCOL XX SCH (09:00)
[2020-07-07] MEDS: HEPARIN SOD (PORCINE) 5000UNITS/ML 1ML VIAL/SYRINGE SC SCH ×2 (09:00→21:10)
[2020-07-07 09:05] VITALS: BP 182/90
[2020-07-07] MEDS ORDERED: fentaNYL 100 MCG/2 ML INJECTION (J3010) As Ordered ONE (09:43)
[2020-07-07] MEDS ORDERED: LIDOCAINE 2% 100MG/5ML SDV (FOR ANES.) As Ordered ONE (09:43)
[2020-07-07] MEDS ORDERED: propofoL 200 MG/20 ML VIAL As Ordered ONE (09:43)
[2020-07-07] MEDS ORDERED: MIDAZOLAM INJ 2MG/2ML VIAL (J2250 PER 1MG) As Ordered ONE (09:43)
[2020-07-07] MEDS ORDERED: ONDANSETRON 4MG/2ML VIAL As Ordered ONE (09:43)
[2020-07-07] MEDS ORDERED: LABETALOL 100MG/20ML VIAL As Ordered ONE (10:21)
[2020-07-07] MEDS ORDERED: METOCLOPRAMIDE INJ 10MG/2ML VIAL (J2765 PER 1) IV PRN (11:30)
[2020-07-07] MEDS ORDERED: ONDANSETRON 4MG/2ML VIAL IV PRN (11:30)
[2020-07-07] MEDS ORDERED: MEPERIDINE INJ 25 MG/ML VIAL (J2175) IV PRN (11:30)
[2020-07-07] MEDS ORDERED: fentaNYL 100 MCG/2 ML INJECTION (J3010) IV PRN (11:30)
[2020-07-07] MEDS ORDERED: LR 1,000 ML IV SCH (11:30)
[2020-07-07] MEDS ORDERED: oxyCODONE 5MG TAB PO PRN (11:30)
[2020-07-07 11:37] VITALS: BP 137/78
[2020-07-07] MEDS: cefTRIAXone SOD 1 GM in D5W MINI-BAG PLUS 50 ML IV SCH (11:47)
--- NOTE | 2020-07-07 11:59 | RO ---
OPERATIVE NOTE DATE OF OPERATION: 07/07/2020 PREOPERATIVE DIAGNOSIS: Left fourth toe gangrene. POSTOPERATIVE DIAGNOSIS: Left fourth toe gangrene. PROCEDURE: Left fourth toe amputation. SURGEON: Sundar Bahena DPM. HEALTH INFORMATION TECHNOLOGIST: None. ANESTHESIA: Monitored anesthesia care. PREOPERATIVE INJECTION(S): 10 mL 1:1 mix of 1% Lidocaine plain and 0.5% Marcaine plain. ESTIMATED BLOOD LOSS: Minimal. MATERIALS: 3-0 nylon. INJECTABLES: None. SPECIMENS: Left fourth toe. INDICATIONS FOR PROCEDURE: Will lFood is a 35-year-old male who developed gangrene to his left fourth toe. This has been steadily worsening over the last few days. There is now no capillary refill to the toe. The decision was made to bring him to the operating room for toe amputation. The patient, side, and site were identified and marked in the preoperative area. Consent was reviewed and obtained. The risks, complications, and alternatives to the procedure were explained to the patient in detail, and all questions were answered. DESCRIPTION OF PROCEDURE: The patient was brought to the operating room and placed on the operating room table in the supine position. Monitored anesthesia care was delivered by the anesthesia team. A preoperative injection of 10 mL of 1:1 mixture of 1% Lidocaine plain and 0.5% Marcaine plain was injected into the left foot. The left foot was prepped and draped in the normal sterile fashion. No tourniquet was used during the procedure. The fourth toe was examined. It was of dark purple and black discolor with no capillary refill. Using a #15 blade, the toe was disarticulated at the metatarsophalangeal joint. There was not significant bleeding. The toe was sent for pathology and culture swabs were taken of the toe itself. The foot was irrigated with normal saline. Partial closure was performed with 3-0 nylon and the wound was packed using sterile gauze. Sterile dressing was applied. The patient was brought to the PACU with vital signs stable and neurovascular status intact. He will be weightbearing as tolerated and be re-admitted to the floor.
[2020-07-07] MEDS: IRON SUCROSE 100MG 5ML VIAL (J1756 PER 1MG) IV SCH (13:25)
[2020-07-07 16:32] VITALS: BP 164/88
--- NOTE | 2020-07-07 16:55 | IPNPDOC ---
Text Note Date of Service The patient was seen on 07/07/20. NOTE Subjective: Patient had toe amputation today, tolerates procedure well Objective: GENERAL APPEARANCE: NAD HEENT: no scleral icterus, no JVD, EOMI CARDIOVASCULAR: S1S2 LUNGS: CTA ABDOMEN: soft & not tender w palpitation MUSCULOSKELETAL: Left foot covered with dressing, no any discharge INTEGUMENT: no generalized pallor NEUROLOGICAL: cranial nerve function from 2-12 intact intact, follows commands, speech not dysarthric Assessment and plan Patient is 35 years old male with past medical history of hypertension, noncompliant to his medications was found to have acute kidney injury, anemia, sepsis and uncontrolled hypertension Sepsis Patient had leukocytosis, tachycardia, tachypnea and source of infection is left fourth toe 2/2 gangrene Amputation was done by Dr. Newman Continue ceftriaxone Acute renal failure Unknown etiology Patient is getting dialysis now Patient had significant nephrotic proteinuria Await kidney biopsy result, it was done on 07/06/20 Nephrology team follows him Continue dialysis per nephrology team Continue steroid Autoimmune serology pending. Hyperkalemia Resolved Metabolic acidosis Resolved Continue dialysis Anemia and acute renal failure Patient received 1 unit of blood transfusion on 07/05/20 Continue Babatunde Will check stool for occult blood left fourth toe gangrene/cellulitis of left foot Unknown etiology. Could be secondary to underlying vasculitis Continue treatment with ceftriaxone and vancomycin Amputation was done on 07/07/20 Secondary hyperparathyroidism Continue Calcitriol. Hypertension Labetalol IV when necessary added Continue carvedilol and hydralazine with isosorbide. The dose of hydralazine was increased. Blood pressure still elevated Systolic CHF Echo showed 1. Study is of good technical quality, underlying sinus rhythm with heart rate around 100 BPM. 2. Mildly dilated, moderately hypertrophy left ventricle with global left ventricular systolic dysfunction and estimated EF around 20% to 25%. At least grade 2 diastolic dysfunction. 3. No aortic valvular disease. 4. Cannot completely rule out the presence of small vegetation on anterior mitral leaflet. Mild mitral insufficiency. 5. Competent tricuspid valve. 6. Elevated central venous pressure. 7. Unable to estimate pulmonary artery pressure. 8. Trivial pericardial effusion. Cardiology team follows patient Gout Hx multiple annual gouty episodes. Doesn't appear to be in acute episode. US no fluid to aspirate for analysis Peripheral vascular diseases Arterial studies showed atherosclerotic disease in the extremities Started statin Obesity BMI 33.4 complicates care. A1C 5.7% VS,Fishbone, I+O VS, Fishbone, I+O Laboratory Tests 07/07/20 05:14 Vital Signs Date Time Temp Pulse Resp B/P (MAP) Pulse Ox O2 Delivery O2 Flow Rate FiO2 07/07/20 16:32 97.7 89 18 164/88 (113) 95 Room Air 07/07/20 10:45 2 I&O- Last 24 Hours up to 6 AM 07/07/20 06:00 Intake Total 1160 ml Output Total 1800 ml Balance -640 ml ELPIDIO FINN DO Jul 07, 2020 16:54
[2020-07-07 20:00] VITALS: BP 160/75
[2020-07-07] MEDS: ATORVASTATIN 20 MG TAB PO SCH (21:08)
[2020-07-07] MEDS: **hydrALAZINE** 50 MG TAB PO SCH (21:09)
[2020-07-08] VITALS (8 sets, daily range): BP systolic 138–178; BP diastolic 78–110
[2020-07-08 05:44] LABS: BASO % 0.2 % (0.0-1.0); EOS % 0.2 % (0.0-3.0); HEMATOCRIT 28.2 % (42.0-52.0); HEMOGLOBIN 9.3 g/dl (13.5-17.5); LYMPH # 1.4 10^3/uL (1.5-5.0); LYMPH % 8.6 % (24.0-44.0); MEAN CORPUSCULAR HEMOGLOBIN 30.1 pg (27.0-33.0); MEAN CORPUSCULAR VOLUME 91.3 fl (80.0-96.0); MONO # 1.1 10^3/uL (0.0-0.8); NEUTROPHILS # 13.1 10^3/uL (1.5-8.5); NEUTROPHILS % 81.7 % (36.0-66.0); PLATELET COUNT, AUTOMATED 168 10^3/uL (150-450); RED BLOOD COUNT 3.09 10^6/uL (4.30-6.10)
[2020-07-08 06:19] LABS: ALBUMIN 2.7 GM/DL (3.2-5.2); BILIRUBIN,TOTAL 0.4 MG/DL (0.2-1.0); CALCIUM LEVEL 8.6 MG/DL (8.5-10.1); CREATININE FOR GFR 6.25 MG/DL (0.70-1.30); GLOMERULAR FILTRATION RATE 10.8 (>60); POTASSIUM SERUM 3.8 MEQ/L (3.5-5.1); TOTAL PROTEIN 6.6 GM/DL (6.4-8.2)
[2020-07-08] MEDS: **hydrALAZINE** 50 MG TAB PO SCH ×3 (08:39→20:01)
[2020-07-08] MEDS: DOCUSATE SODIUM 100MG CAPSULE PO SCH ×2 (08:39→20:00)
[2020-07-08] MEDS: (RENVELA) SEVELAMER **CARBONate** 800 MG TAB PO SCH ×3 (08:39→17:08)
[2020-07-08] MEDS: FERROUS SULFATE 325MG TAB PO SCH (08:39)
[2020-07-08] MEDS: ISOSORBIDE DIN. (ISORDIL) 20 MG TAB PO SCH ×3 (08:40→20:03)
[2020-07-08] MEDS: predniSONE 20 MG TAB PO SCH (08:40)
[2020-07-08] MEDS: CARVedilol 6.25 MG TAB PO SCH ×2 (08:41→20:00)
[2020-07-08] MEDS: HEPARIN SOD (PORCINE) 5000UNITS/ML 1ML VIAL/SYRINGE SC SCH ×2 (08:42→20:03)
[2020-07-08] MEDS: PANTOPRAZOLE 40MG VIAL (C9113 PER 1) IV SCH (08:42)
[2020-07-08] MEDS: HumaLOG INSULIN (NovoLOG) PER UNIT SC SCH ×4 (08:43→20:03)
--- NOTE | 2020-07-08 08:55 | IPN ---
PROGRESS NOTE DATE: 07/07/2020 SUBJECTIVE: Patient was seen and examined at the bedside today morning during hemodialysis procedure. He is tolerating the hemodialysis procedure well. He just came from the operating room (OR) after getting left 4th toe amputation done. He also got left renal biopsy done yesterday. He denies any complaints or pain at the biopsy site and he denies any hematuria. OBJECTIVE: Vital signs: Temperature is 98.2 degrees Fahrenheit, blood pressure 160/75, pulse is 99, respiratory rate of 18, saturating 96% on room air. Intake and output: Urine output recorded is 1 liter so far since overnight. Weight in the bed scale is 109.7 kg. PHYSICAL EXAMINATION: General: Patient is awake, alert, oriented times three, laying in the bed getting hemodialysis done. Head and neck exam: Extraocular muscles intact. Pupils equally round and reactive to light. Mucous membranes are moist. Neck is supple. Right internal jugular (IJ) tunneled hemodialysis catheter being used for dialysis. Cardiovascular: S1, S2, regular rate. No edema of the bilateral lower extremities. Respiratory: Chest is clear to auscultation bilaterally. Bilateral equal air entry. No rales or rhonchi. Abdomen: Soft, obese, positive bowel sounds, nontender, no organomegaly. Genitourinary: Bladder is not palpable. Musculoskeletal: He has a dressing on the left foot and recently left 4th toe was amputated. 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 Power is 5/5 in bilateral upper extremities. LABORATORY REVIEW: CBC showed WBC 6.1, hemoglobin is 9, platelets are 156. BMP showed sodium 136, potassium 3.8, chloride 103, bicarbonate 23, BUN 58, creatinine is 6.7, sugar was 397, calcium is 8.3. Immunology: RONY, ANCA, anti-double stranded DNA antibody, anti-GBM antibody, anticardiolipin is all negative so far. CURRENT INPATIENT MEDICATIONS: Patient's medications were all reviewed by myself. He continues to be on IV ceftriaxone. His hydralazine, isosorbide, and Coreg dosages were increased yesterday because of persistent hypertension. No other significant change in the medications today. He has also been started on prednisone 60 mg by mouth daily. ASSESSMENT AND PLAN: 1. Acute nonoliguric renal failure with nephrotic range proteinuria. Patient got 3 days of pulsed steroids. Renal biopsy was done yesterday. Biopsy result is pending. He has been switched to oral prednisone. He is dialysis dependent. Continue current hemodialysis three times a week now. He will need outpatient placement at dialysis center and patient also needs tunneled dialysis catheter placement whenever interventional radiology (IR) is available. 2. Anemia in end-stage renal disease. He was given a blood transfusion. He has also been started on Aranesp and Venofer. Hemoglobin level is stable and improving. 3. Hypertension. Volume status is being optimized with dialysis. His Coreg, hydralazine, and isosorbide dosages were increased. 4. Dilated cardiomyopathy. Patient has a left ventricular (LV) ejection fraction of around 20-25%. Continue the optimization of volume status. No angiotensin converting enzyme (PIERRE) and ARB at this time because of acute renal failure. 5. Peripheral vascular disease and left 4th toe gangrene. Patient is status post amputation of the 4th toe. He is on IV antibiotics. Vancomycin level was 23.7 yesterday. Dose is as per pharmacy. 6. Disposition. Patient is pending placement at outpatient dialysis center, tunneled dialysis catheter, and preliminary biopsy result from pathology department. I anticipate that patient will be in the hospital for a few more days.
[2020-07-08] MEDS: cefTRIAXone SOD 1 GM in D5W MINI-BAG PLUS 50 ML IV SCH (10:00)
[2020-07-08 10:32] LABS: PHOSPHORUS LEVEL 5.2 MG/DL (2.5-4.9)
--- NOTE | 2020-07-08 11:17 | IPNPDOC ---
Text Note Date of Service The patient was seen on 07/08/20. NOTE Subjective: Pt patient stated that he feels better today. Patient denied fever, chills, nausea, diarrhea or dysuria Objective: GENERAL APPEARANCE: NAD HEENT: no scleral icterus, no JVD, EOMI CARDIOVASCULAR: S1S2 LUNGS: CTA ABDOMEN: soft & not tender w palpitation MUSCULOSKELETAL: Left foot covered with dressing, no any discharge INTEGUMENT: no generalized pallor NEUROLOGICAL: cranial nerve function from 2-12 intact intact, follows commands, speech not dysarthric Assessment and plan Patient is 35 years old male with past medical history of hypertension, noncompliant to his medications was found to have acute kidney injury, anemia, sepsis and uncontrolled hypertension Sepsis Patient had leukocytosis, tachycardia, tachypnea and source of infection is left fourth toe 2/2 gangrene Amputation was done by Dr. Newman Continue ceftriaxone Acute renal failure Unknown etiology Patient is getting dialysis now Patient had significant nephrotic proteinuria Await kidney biopsy result, it was done on 07/06/20 Nephrology team follows him Continue dialysis per nephrology team Continue steroid Autoimmune serologies significant for low C3 level Hyperkalemia Resolved Metabolic acidosis Resolved Continue dialysis Anemia and acute renal failure Patient received 1 unit of blood transfusion on 07/05/20 Continue Aranesp and Venofer Will check stool for occult blood left fourth toe gangrene/cellulitis of left foot Unknown etiology. Could be secondary to underlying vasculitis Amputation was done on 07/07/20 Secondary hyperparathyroidism Continue Calcitriol. Hypertension Labetalol IV when necessary added Continue carvedilol and hydralazine with isosorbide. The dose of hydralazine was increased. Blood pressure still elevated Systolic CHF Echo showed 1. Study is of good technical quality, underlying sinus rhythm with heart rate around 100 BPM. 2. Mildly dilated, moderately hypertrophy left ventricle with global left ventricular systolic dysfunction and estimated EF around 20% to 25%. At least grade 2 diastolic dysfunction. 3. No aortic valvular disease. 4. Cannot completely rule out the presence of small vegetation on anterior mitral leaflet. Mild mitral insufficiency. 5. Competent tricuspid valve. 6. Elevated central venous pressure. 7. Unable to estimate pulmonary artery pressure. 8. Trivial pericardial effusion. Cardiology team follows patient Gout Hx multiple annual gouty episodes. Doesn't appear to be in acute episode. US no fluid to aspirate for analysis Peripheral vascular diseases Arterial studies showed atherosclerotic disease in the extremities Started statin Obesity BMI 33.4 complicates care. A1C 5.7% VS,Fishbone, I+O VS, Fishbone, I+O Laboratory Tests 07/08/20 04:56 Vital Signs Date Time Temp Pulse Resp B/P (MAP) Pulse Ox O2 Delivery O2 Flow Rate FiO2 07/08/20 08:39 160/90 07/08/20 07:58 98.5 92 18 95 Room Air 07/07/20 10:45 2 I&O- Last 24 Hours up to 6 AM 07/08/20 06:00 Intake Total 2175 ml Output Total 2575 ml Balance -400 ml ELPIDIO FINN DO Jul 08, 2020 11:17
[2020-07-08] MEDS: ATORVASTATIN 20 MG TAB PO SCH (20:00)
--- NOTE | 2020-07-08 21:52 | IPN ---
NEPHROLOGY PROGRESS NOTE DATE: 07/08/2020 SUBJECTIVE: The patient was seen and examined at the bedside today morning. He is afebrile and hemodynamically stable. He continues to be on oral Prednisone. He was dialyzed yesterday. He tolerated the hemodialysis procedure well and 1.5 liters of fluid was removed. Blood pressures are still slightly elevated. He denies any pain in the left fourth toe amputation site. OBJECTIVE: VITAL SIGNS: Temperature is 98.5 degrees Fahrenheit, blood pressure 168/110, pulse is 101, respiratory rate of 16, saturating 98% on room air. INTAKE AND OUTPUT: Urine output recorded as one liter yesterday, 850 mL so far today. Ultrafiltration with hemodialysis was 1.5 liters. Weight in the bed scale is 111.1 kg. PHYSICAL EXAMINATION: GENERAL APPEARANCE: The patient is awake, alert, oriented x3, obese body habitus. HEAD AND NECK: Extraocular muscles intact. Pupils are equally round and reactive to light. Right IJ non tunneled hemodialysis catheter is noted. CARDIOVASCULAR: S1, S2, regular rate. EXTREMITIES: No edema of the bilateral lower extremities. RESPIRATORY: Chest is clear to auscultation bilaterally. Bilaterally currently no rales or rhonchi. ABDOMEN: Soft, positive bowel sounds, nontender, no organomegaly. MUSCULOSKELETAL: He has a dressing on the right fourth toe amputation site. 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 Power is 5/5 in all extremities. LAB REVIEW: CBC showed a WBC of 16, hemoglobin 9.3, platelets of 168. BMP showed sodium 138, potassium 3.8, chloride 103, bicarbonate 26, BUN 58, creatinine is 6.2. Phosphorous is 5.2. Left renal biopsy preliminary report I got a call from Dr. Martell at [facility] in [place] that the patient has advanced chronic kidney disease with a lot of fibrosis with some element of ATN, and there are less chances of renal recovery given the biopsy results. CURRENT INPATIENT MEDICATIONS: The patient's medications were all reviewed by myself. He was getting Prednisone 60 mg p.o. daily, and I have stopped his Prednisone now. I have also stopped his oral iron tablet. ASSESSMENT AND PLAN: 1. End-stage renal disease after discussion of the biopsy results, the patient seems like he has approached end-stage renal disease. He is going to get a tunneled catheter placement and he will be discharged once he has a chair available at the outpatient dialysis center. The patient would need to be referred for transplant as an outpatient. All the autoimmune serology is negative so far. 2. Hypertension - blood pressure is elevated. Steroids are being stopped. Antihypertensive regimen was changed yesterday. 3. Hemodialysis will be done the day after tomorrow. 4. Anemia and end-stage renal disease - hemoglobin level is stable and improving. Continue current dose of Aranesp and Venofer. 5. Peripheral vascular disease and left fourth toe gangrene - The patient is status post amputation. He continues to be on IV antibiotics. 6. New onset diabetes, probably induced by steroids the patient's hemoglobin A1c was 5.9. He was pre-diabetic when he came in, however the steroids have made him hyperglycemic and he is requiring insulin. Prednisone is being stopped. 7. Disposition - The patient needs tunneled dialysis catheter placement and he needs placement at the dialysis center as an outpatient.
[2020-07-09] VITALS (7 sets, daily range): BP systolic 134–178; BP diastolic 80–98
[2020-07-09 05:35] LABS: BASO % 0.2 % (0.0-1.0); EOS # 0.2 10^3/uL (0.0-0.5); EOS % 0.9 % (0.0-3.0); HEMATOCRIT 28.9 % (42.0-52.0); HEMOGLOBIN 9.3 g/dl (13.5-17.5); LYMPH # 1.4 10^3/uL (1.5-5.0); LYMPH % 8.2 % (24.0-44.0); MEAN CORPUSCULAR HEMOGLOBIN 29.5 pg (27.0-33.0); MEAN CORPUSCULAR HGB CONC 32.2 g/dl (32.0-36.5); MEAN CORPUSCULAR VOLUME 91.7 fl (80.0-96.0); MONO % 6.1 % (0.0-5.0); NEUTROPHILS % 82.5 % (36.0-66.0); PLATELET COUNT, AUTOMATED 162 10^3/uL (150-450); RED BLOOD COUNT 3.15 10^6/uL (4.30-6.10)
[2020-07-09 06:06] LABS: ALBUMIN 2.7 GM/DL (3.2-5.2); BILIRUBIN,TOTAL 0.3 MG/DL (0.2-1.0); CALCIUM LEVEL 8.5 MG/DL (8.5-10.1); CREATININE FOR GFR 7.76 MG/DL (0.70-1.30); GLOMERULAR FILTRATION RATE 8.4 (>60); MAGNESIUM LEVEL 1.7 MG/DL (1.8-2.4); POTASSIUM SERUM 3.9 MEQ/L (3.5-5.1); TOTAL PROTEIN 6.4 GM/DL (6.4-8.2)
[2020-07-09] MEDS: HumaLOG INSULIN (NovoLOG) PER UNIT SC SCH ×4 (08:35→20:48)
[2020-07-09] MEDS: PANTOPRAZOLE 40MG VIAL (C9113 PER 1) IV SCH (08:36)
[2020-07-09] MEDS: (RENVELA) SEVELAMER **CARBONate** 800 MG TAB PO SCH ×3 (08:36→16:52)
[2020-07-09] MEDS: CALCITRIOL 0.25 MCG CAP (S0169) PO SCH (08:36)
[2020-07-09] MEDS: CARVedilol 6.25 MG TAB PO SCH ×2 (08:37→20:34)
[2020-07-09] MEDS: DOCUSATE SODIUM 100MG CAPSULE PO SCH ×2 (08:37→20:33)
[2020-07-09] MEDS: ISOSORBIDE DIN. (ISORDIL) 20 MG TAB PO SCH ×3 (08:37→20:34)
[2020-07-09] MEDS: HEPARIN SOD (PORCINE) 5000UNITS/ML 1ML VIAL/SYRINGE SC SCH ×2 (08:39→20:33)
[2020-07-09] MEDS: **hydrALAZINE** 50 MG TAB PO SCH ×3 (08:40→20:35)
[2020-07-09] MEDS: LABETALOL 100MG/20ML VIAL IV PRN (08:49)
[2020-07-09] MEDS ORDERED: LEVEMIR (INSULIN DETEMIR) 1 UNITS/0.01ML SC SCH (09:00)
[2020-07-09] MEDS ORDERED: amLODIPine 5 MG TAB PO SCH (09:00)
[2020-07-09] MEDS: cefTRIAXone SOD 1 GM in D5W MINI-BAG PLUS 50 ML IV SCH (09:39)
--- NOTE | 2020-07-09 09:44 | IPN ---
PROGRESS NOTE DATE: 07/08/2020 Mr. Flood was seen earlier in the afternoon, he was sitting in his bed in no acute distress at rest. He denies any chest pain, shortness of breath, palpitations, pedal edema, orthopnea. He denies any fever or chills. He was initially admitted on 07/01/2020 with infected 4th and 5th digits of the left foot and his labs revealed mild anemia with a hemoglobin and hematocrit of 7.0 and 21.3, respectively. His BMP revealed a BUN of 120 with a creatinine of 10.8. He was started on antibiotics for serologies of his toes. He had an echocardiogram done on 07/02/2020 and it revealed a left ventricular ejection fraction (LVEF) estimated at 20-25% and grade 2 left ventricular diastolic dysfunction. He was seen by Dr. Conley as a cardiology consult. His blood pressure when he arrived at the hospital was reported to be 172/106 with a pulse of 112, respirations 16, and his oxygen saturation on room air was 100%. On 07/06/2020, he had a kidney biopsy and it was reported that he has acute tubular necrosis (ATN) and chronic kidney disease and will end up in hemodialysis. Yesterday, 07/07/2020, he had left 4th toe amputation. Arterial study of his lower extremities revealed marked bilateral atherosclerotic disease but no focal stenosis or occlusions. His blood pressure continued to be elevated. His ankle branchial index (KENYETTA) was non-diagnostic due to non-compressibility. PHYSICAL EXAMINATION: Patient is alert and oriented, in no acute distress at rest and his vital signs when I saw him revealed a blood pressure of 148/90 with a pulse of 78 and respirations 18 and his maximum temperature was 98 degrees Fahrenheit with an oxygen saturation of 95% on room air. Examination of the head: Atraumatic. Neck is supple. No jugular venous distention (JVD) appreciated. The lungs were clear bilaterally on auscultation without any wheezing or crackles. The heart examination revealed normal S1 and S2 without gallops. The point of maximum impulse (PMI) is slightly displaced inferiorly and laterally. There is no rub. Abdomen is soft and nontender. Neurologic examination is negative for focal deficit. LABORATORY DATA: CBC done today revealed a WBC of 16.0, hemoglobin 9.3, hematocrit 28.2, and platelets 168,000. BMP revealed a sodium of 138, potassium 3.8, chloride 103, CO2 26, BUN 58, creatinine 6.25, and GFR 10.8, fasting glucose 161, with a calcium of 8.6. Serum magnesium was 2.0. Liver enzymes revealed an AST of 16, ALT 17, alkaline phosphatase 101, total protein 6.1, albumin 2.7. Telemetry revealed normal sinus rhythm. IMPRESSION: 1. Cardiomyopathy with severely depressed global left ventricular systolic function, most likely related to longstanding uncontrolled hypertension. Patient stated he has a history of hypertension but was never on medications. This may improve a little bit with treatment but in the meantime, underlying coronary artery disease (CAD) will need to be ruled out as outpatient. He is currently on hydralazine/nitrate and a beta kim. After discussing with nephrology, he can be started on Entresto, an angiotensin-converting enzyme (PIERRE) inhibitor or ARB with indications for left ventricular systolic dysfunction such as valsartan or candesartan. In the meantime, I have added amlodipine in order to better control his blood pressure. We have discussed about the importance of being compliant with these medications and followup with his physician. He has manifested understanding and I believe he will show some more compliance with treatment. He might benefit from a renal transplant and this is being addressed by nephrology. It was a pleasure to participate in the care of . Will Flood for his underlying cardiac condition. He appears to be stable. Dr. Bey will be covering and please do not hesitate to call if any questions. Dr. Conley will be back this coming Sunday. JOAQUIN
--- NOTE | 2020-07-09 10:22 | REP ---
INDICATION: LEFT RENAL BIOPSY. COMPARISON: None. TECHNIQUE: Ultrasound guidance. FINDINGS: Sonographic guidance is provided to Dr. Valdez, who performed a percutaneous needle biopsy of the left kidney under sonographic guidance. IMPRESSION: Sonographic guidance. Procedural imaging. <Electronically signed by Luis Alejandre > 07/09/20 101
--- NOTE | 2020-07-09 10:46 | IPNPDOC ---
Text Note Date of Service The patient was seen on 07/09/20. NOTE Subjective: No any acute events overnight Objective: GENERAL APPEARANCE: NAD HEENT: no scleral icterus, no JVD, EOMI CARDIOVASCULAR: S1S2 LUNGS: CTA ABDOMEN: soft & not tender w palpitation MUSCULOSKELETAL: Left foot covered with dressing, no any discharge INTEGUMENT: no generalized pallor NEUROLOGICAL: cranial nerve function from 2-12 intact intact, follows commands, speech not dysarthric Assessment and plan Patient is 35 years old male with past medical history of hypertension, noncompliant to his medications was found to have acute kidney injury, anemia, sepsis and uncontrolled hypertension Sepsis Resolved Patient had leukocytosis, tachycardia, tachypnea and source of infection is left fourth toe 2/2 gangrene Amputation was done by Dr. Newman Continue ceftriaxone. Wound culture positive for Streptococcus group C and Enterobacter cloacae sensitive to ceftriaxone Acute renal failure Unknown etiology Patient is getting dialysis now Patient had significant nephrotic proteinuria Kidney biopsy showed sclerotic changes of cortex. Patient will need permanent dialysis catheter placement. Nephrology team follows him Continue dialysis per nephrology team Stop steroid Autoimmune serologies significant for low C3 level Follow-up with kidney transplant center in the outpatient settings Hyperkalemia Resolved Metabolic acidosis Resolved Continue dialysis Anemia and acute renal failure Patient received 1 unit of blood transfusion on 07/05/20 Continue Babatunde Will check stool for occult blood left fourth toe gangrene/cellulitis of left foot Unknown etiology. Could be secondary to underlying vasculitis Amputation was done on 07/07/20 Secondary hyperparathyroidism Continue Calcitriol. Hypertension Labetalol IV when necessary added Continue carvedilol and hydralazine with isosorbide. The dose of hydralazine was increased. Blood pressure still elevated Dr. Wade added amlodipine. Systolic CHF Echo showed 1. Study is of good technical quality, underlying sinus rhythm with heart rate around 100 BPM. 2. Mildly dilated, moderately hypertrophy left ventricle with global left ventricular systolic dysfunction and estimated EF around 20% to 25%. At least grade 2 diastolic dysfunction. 3. No aortic valvular disease. 4. Cannot completely rule out the presence of small vegetation on anterior mitral leaflet. Mild mitral insufficiency. 5. Competent tricuspid valve. 6. Elevated central venous pressure. 7. Unable to estimate pulmonary artery pressure. 8. Trivial pericardial effusion. Cardiology team follows patient. Most likely patient will need Entresto. Will discuss with credit controller Gout not in acute exacerbation Hx multiple annual gouty episodes. Doesn't appear to be in acute episode. US no fluid to aspirate for analysis Peripheral vascular diseases Arterial studies showed atherosclerotic disease in the extremities Started statin Obesity BMI 33.4 complicates care. A1C 5.7% VS,Fishbone, I+O VS, Fishbone, I+O Laboratory Tests 07/09/20 05:11 Vital Signs Date Time Temp Pulse Resp B/P (MAP) Pulse Ox O2 Delivery O2 Flow Rate FiO2 07/09/20 09:40 134/80 (98) 07/09/20 08:49 93 07/09/20 08:00 97.5 17 98 Room Air 07/07/20 10:45 2 I&O- Last 24 Hours up to 6 AM 07/09/20 06:00 Intake Total 1190 ml Output Total 800 ml Balance 390 ml ELPIDIO FINN DO Jul 09, 2020 10:46
[2020-07-09] MEDS: ENTRESTO 24-26MG TABLET (SACUBITRIL/VALSARTAN) PO SCH ×2 (13:20→20:34)
--- NOTE | 2020-07-09 20:22 | IPN ---
NEPHROLOGY PROGRESS NOTE DATE: 07/09/2020 SUBJECTIVE: The patient was seen and examined at the bedside today morning. He is afebrile, hemodynamically stable. His steroids were stopped because of evidence of extensive fibrosis and scarring on the renal biopsy. His glucose levels are better controlled now. For his hypertension he was started on Amlodipine today morning by Cardiology. He denies any other active complaints at this time. OBJECTIVE: VITAL SIGNS: Temperature is 97.2 degrees Fahrenheit, blood pressure 150/88, pulse is 89, respiratory rate of 18, saturating 98% on room air. INTAKE AND OUTPUT: Urine output recorded as 1.1 liter yesterday. One liter so far today since overnight. Weight in the bed scale is 111.8 kg. PHYSICAL EXAMINATION: GENERAL APPEARANCE: The patient is awake, alert, oriented x3, sitting up in the bed in no apparent distress. HEAD AND NECK: Pupils are equally round and reactive to light. Mucous membranes are moist. Neck is supple. He has a right IJ non tunneled hemodialysis catheter. CARDIOVASCULAR: S1, S2, regular rate. EXTREMITIES: No edema of the bilateral lower extremities. RESPIRATORY: Chest is clear to auscultation bilaterally. Bilaterally currently no rales or rhonchi. ABDOMEN: Soft, obese, positive bowel sounds, nontender, no organomegaly. MUSCULOSKELETAL: No clubbing, no cyanosis. Pulses are 2+. ACCOUNTS OFFICER: No focal deficits. Power is 5/5 in all extremities. LAB REVIEW: CBC showed a WBC of 17, hemoglobin 9.3, platelets are 162. BMP showed sodium 139, potassium 3.9, chloride 103, bicarbonate 23, BUN 81, creatinine is 7.7. Magnesium is 1.7. CURRENT INPATIENT MEDICATIONS: The patient's medications were all reviewed by myself. He was started on Amlodipine 2.5 mg p.o. daily. However because of the cardiomyopathy, I am starting the patient on Entresto one tablet p.o. twice a day and Amlodipine is being stopped. He continues to be on IV Ceftriaxone. No other significant change in the medications today. ASSESSMENT AND PLAN: 1. End-stage renal disease - The patient has approached end-stage renal disease. Preliminary biopsy results show that there are very less chances of renal recovery given the extensive tubular atrophy and scarring and fibrosis of glomerular. He will get a tunneled dialysis catheter placed next week. He will be dialyzed tomorrow morning via the right IJ non tunneled hemodialysis catheter and after that, catheter will be removed. 2. Anemia and end-stage renal disease hemoglobin level is 9.3. It is stable and improving. Continue current dose of Aranesp and Venofer with dialysis. 3. Hypertension with hypertensive heart disease - continue current dose of Coreg, Hydralazine and Isosorbide and Entresto is being added. Dose will be further adjusted tomorrow morning. 4. Cardiomyopathy - The patient has an ejection fraction of around 20-25%. Now that the biopsy shows that the patient has approached end-stage renal disease, Entresto is being started. Volume status is being optimized with dialysis. 5. Secondary hyperparathyroidism - continue current dose of Calcitriol 0.25 mcg Sunday, Sunday, Sunday. 6. Chronic kidney disease, mineral bone disease - continue current dose of Renvela 800 mg p.o. with meals.
[2020-07-09] MEDS: ATORVASTATIN 20 MG TAB PO SCH (20:33)
[2020-07-09] MEDS: ACETAMINOPHEN TAB 650MG DOSE (2X325MG) PO PRN (20:38)
[2020-07-10] VITALS: BP 150/81
[2020-07-10] MEDS ORDERED: HYDROMORPHONE HCL 0.5 MG/ 0.5 ML SYRINGE (J1170 PER 1) IV PRN ×2 (00:15)
[2020-07-10 04:00] VITALS: BP 136/74
[2020-07-10 06:42] LABS: BASO % 0.2 % (0.0-1.0); EOS # 0.5 10^3/uL (0.0-0.5); EOS % 2.6 % (0.0-3.0); HEMOGLOBIN 10.3 g/dl (13.5-17.5); LYMPH # 2.2 10^3/uL (1.5-5.0); LYMPH % 10.8 % (24.0-44.0); MEAN CORPUSCULAR HEMOGLOBIN 30.2 pg (27.0-33.0); MEAN CORPUSCULAR HGB CONC 33.2 g/dl (32.0-36.5); MEAN CORPUSCULAR VOLUME 90.9 fl (80.0-96.0); MONO # 1.1 10^3/uL (0.0-0.8); MONO % 5.7 % (0.0-5.0); NEUTROPHILS # 15.6 10^3/uL (1.5-8.5); NEUTROPHILS % 78.8 % (36.0-66.0); PLATELET COUNT, AUTOMATED 173 10^3/uL (150-450); RED BLOOD COUNT 3.41 10^6/uL (4.30-6.10); WHITE BLOOD COUNT 19.9 10^3/uL (4.0-10.0)
[2020-07-10 07:28] LABS: ALBUMIN 2.6 GM/DL (3.2-5.2); BILIRUBIN,TOTAL 0.4 MG/DL (0.2-1.0); CALCIUM LEVEL 8.2 MG/DL (8.5-10.1); CREATININE FOR GFR 9.01 MG/DL (0.70-1.30); GLOMERULAR FILTRATION RATE 7.1 (>60); MAGNESIUM LEVEL 2.1 MG/DL (1.8-2.4); POTASSIUM SERUM 3.9 MEQ/L (3.5-5.1); TOTAL PROTEIN 6.3 GM/DL (6.4-8.2)
[2020-07-10 08:00] VITALS: BP 190/110
[2020-07-10] MEDS ORDERED: SODIUM CHLORIDE 0.9% 1000ML IV PRN (08:00)
[2020-07-10] MEDS: CARVedilol 6.25 MG TAB PO SCH ×2 (08:10→20:37)
[2020-07-10] MEDS: ENTRESTO 24-26MG TABLET (SACUBITRIL/VALSARTAN) PO SCH ×2 (08:10→20:36)
[2020-07-10] MEDS: (RENVELA) SEVELAMER **CARBONate** 800 MG TAB PO SCH ×3 (08:10→17:32)
[2020-07-10] MEDS: PANTOPRAZOLE 40MG VIAL (C9113 PER 1) IV SCH (08:10)
[2020-07-10] MEDS: DOCUSATE SODIUM 100MG CAPSULE PO SCH ×2 (08:10→20:37)
[2020-07-10] MEDS: **hydrALAZINE** 50 MG TAB PO SCH ×3 (08:11→20:37)
[2020-07-10] MEDS: ISOSORBIDE DIN. (ISORDIL) 20 MG TAB PO SCH ×3 (08:11→20:37)
[2020-07-10] MEDS: HumaLOG INSULIN (NovoLOG) PER UNIT SC SCH ×4 (08:12→20:38)
[2020-07-10] MEDS: HEPARIN SOD (PORCINE) 5000UNITS/ML 1ML VIAL/SYRINGE SC SCH ×2 (08:12→20:36)
[2020-07-10] MEDS: IRON SUCROSE 100MG 5ML VIAL (J1756 PER 1MG) IV SCH (10:09)
[2020-07-10 12:45] VITALS: BP 119/79
[2020-07-10 14:00] VITALS: BP 131/73
--- NOTE | 2020-07-10 15:32 | IPNPDOC ---
Text Note Date of Service The patient was seen on 07/10/20. NOTE Subjective: Patient complained of left foot pain overnight subsided after pain medication Objective: GENERAL APPEARANCE: NAD HEENT: no scleral icterus, no JVD, EOMI CARDIOVASCULAR: S1S2 LUNGS: CTA ABDOMEN: soft & not tender w palpitation MUSCULOSKELETAL: Left foot covered with dressing, no any discharge INTEGUMENT: no generalized pallor NEUROLOGICAL: cranial nerve function from 2-12 intact intact, follows commands, speech not dysarthric Assessment and plan Patient is 35 years old male with past medical history of hypertension, noncompliant to his medications was found to have acute kidney injury, anemia, sepsis and uncontrolled hypertension Sepsis Resolved Patient had leukocytosis, tachycardia, tachypnea and source of infection is left fourth toe 2/2 gangrene Amputation was done by Dr. Newman Leukocytes count continues to rise, I changed ceftriaxone to cefepime to cover anaerobes. Wound culture positive for Streptococcus group C and Enterobacter cloacae. Marely erobes culture pending Acute renal failure Patient is getting dialysis now Patient had significant nephrotic proteinuria Kidney biopsy showed sclerotic changes of cortex. Patient will need permanent dialysis catheter placement. Nephrology team follows him Continue dialysis per nephrology team Stop steroid Autoimmune serologies significant for low C3 level Follow-up with kidney transplant center in the outpatient settings Hyperkalemia Resolved Metabolic acidosis Resolved Continue dialysis Anemia and acute renal failure Patient received 1 unit of blood transfusion on 07/05/20 Continue Babatunde Will check stool for occult blood left fourth toe gangrene/cellulitis of left foot Unknown etiology. Could be secondary to underlying vasculitis Amputation was done on 07/07/20 Secondary hyperparathyroidism Continue Calcitriol. Hypertension Labetalol IV when necessary added Continue carvedilol and hydralazine with isosorbide. The dose of hydralazine was increased. Entresto added Systolic CHF Echo showed 1. Study is of good technical quality, underlying sinus rhythm with heart rate around 100 BPM. 2. Mildly dilated, moderately hypertrophy left ventricle with global left ventricular systolic dysfunction and estimated EF around 20% to 25%. At least grade 2 diastolic dysfunction. 3. No aortic valvular disease. 4. Cannot completely rule out the presence of small vegetation on anterior mitral leaflet. Mild mitral insufficiency. 5. Competent tricuspid valve. 6. Elevated central venous pressure. 7. Unable to estimate pulmonary artery pressure. 8. Trivial pericardial effusion. Cardiology team follows patient. Gout not in acute exacerbation Hx multiple annual gouty episodes. Doesn't appear to be in acute episode. US no fluid to aspirate for analysis Peripheral vascular diseases Arterial studies showed atherosclerotic disease in the extremities Started statin Obesity BMI 33.4 complicates care. A1C 5.7% VS,Fishbone, I+O VS, Fishbone, I+O Laboratory Tests 07/10/20 05:42 Vital Signs Date Time Temp Pulse Resp B/P (MAP) Pulse Ox O2 Delivery O2 Flow Rate FiO2 07/10/20 12:45 97.1 81 18 119/79 (92) 98 Room Air 07/07/20 10:45 2 I&O- Last 24 Hours up to 6 AM 07/10/20 06:00 Intake Total 1250 ml Output Total 2475 ml Balance -1225 ml ELPIDIO FINN DO Jul 10, 2020 15:31
[2020-07-10 15:40] LABS: C REACTIVE PROTEIN QUANTITATIV 0.56 MG/DL (0.00-0.30)
[2020-07-10 15:58] LABS: ERYTHROCYTE SEDIMENTATION RATE 40 mm/hr (0-15)
[2020-07-10] MEDS: CEFEPIME HCL 1 GM in D5W MINI-BAG PLUS 50 ML IV SCH (16:40)
--- NOTE | 2020-07-10 18:37 | IPN ---
PROGRESS NOTE DATE: 07/10/2020 Mr. Flood is seen this morning during hemodialysis. He denies any nausea, vomiting, dyspnea, or chest pain. He has no fever or chills. His blood pressure was high this morning; however, right now his blood pressure is down to 99/60 mmHg during dialysis. We have already stopped the ultrafiltration. PHYSICAL EXAMINATION: Temperature 97 degrees Fahrenheit, heart rate 96 per minute, respiratory rate 18 per minute. Blood pressure right now 99/60 mmHg, and oxygen saturation 98%. Head is atraumatic. Neck supple and jugular venous distention (JVD) difficult to be assessed. He has a right internal jugular (IJ) hemodialysis temporary catheter. Heart sounds are somewhat tachycardic. Lungs sound clear to auscultation. Abdomen soft and nontender. Bowel sounds are normal. Extremities without any cyanosis or clubbing. Left foot has dressing where he has amputation of his 4th toe. Today's labs show WBC 19.9, h mg 10.3, hematocrit 31. Sodium 141, potassium 3.9, CO2 of 21, BUN 95, creatinine 9.0. Glucose 155 and calcium 8.2. PROBLEMS: 1. Acute on chronic renal failure. Patient had a kidney biopsy done last week, and preliminary report has been called in by pathologist, indicating mostly chronic disease with significant scarring. Patient was treated with steroids with presumptive diagnosis of acute glomerulonephritis, as he did have elevated antistreptolysin (ASO) titer. In any event, after the preliminary report of kidney biopsy, steroids, have been stopped. Patient remains dialysis dependent without any improving in kidney function. He is currently being dialyzed. We will wait for the final report of his kidney biopsy. 2. Dialysis access. Patient currently has a temporary catheter in his right internal jugular vein, which will be removed today after dialysis. We will get a Perm-A-Cath placed next week. 3. Anemia. His anemia has improved following transfusion since admission. Currently he is stable, and we will continue to monitor closely. 4. Cardiomyopathy. Patient has been diagnosed with cardiomyopathy during this admission by echocardiogram. His volume status is well compensated, and he remains on Entresto, which was just started along with hydralazine and carvedilol. 5. Hypertension. Blood pressure much better now, and he remains on current antihypertensive medications. I have not changed any medications today. 6. Hyperglycemia. This was mostly related to steroids and his improving as his steroids have been now stopped.
[2020-07-10 20:00] VITALS: BP 142/73
[2020-07-10] MEDS: ATORVASTATIN 20 MG TAB PO SCH (20:36)
[2020-07-11] VITALS: BP 144/69
[2020-07-11 04:00] VITALS: BP 142/89
[2020-07-11 06:15] LABS: BASO # 0.1 10^3/uL (0.0-0.2); BASO % 0.2 % (0.0-1.0); EOS # 0.4 10^3/uL (0.0-0.5); EOS % 2.1 % (0.0-3.0); HEMATOCRIT 31.6 % (42.0-52.0); HEMOGLOBIN 10.6 g/dl (13.5-17.5); LYMPH # 1.7 10^3/uL (1.5-5.0); LYMPH % 8.3 % (24.0-44.0); MEAN CORPUSCULAR HEMOGLOBIN 31.2 pg (27.0-33.0); MEAN CORPUSCULAR HGB CONC 33.5 g/dl (32.0-36.5); MEAN CORPUSCULAR VOLUME 92.9 fl (80.0-96.0); MONO # 1.5 10^3/uL (0.0-0.8); MONO % 7.3 % (0.0-5.0); NEUTROPHILS # 16.2 10^3/uL (1.5-8.5); NEUTROPHILS % 80.2 % (36.0-66.0); PLATELET COUNT, AUTOMATED 165 10^3/uL (150-450); WHITE BLOOD COUNT 20.2 10^3/uL (4.0-10.0)
[2020-07-11 06:38] LABS: ALBUMIN 2.6 GM/DL (3.2-5.2); BILIRUBIN,TOTAL 0.5 MG/DL (0.2-1.0); CALCIUM LEVEL 8.5 MG/DL (8.5-10.1); CREATININE FOR GFR 7.69 MG/DL (0.70-1.30); GLOMERULAR FILTRATION RATE 8.5 (>60); MAGNESIUM LEVEL 2.1 MG/DL (1.8-2.4); POTASSIUM SERUM 3.8 MEQ/L (3.5-5.1); TOTAL PROTEIN 6.6 GM/DL (6.4-8.2)
[2020-07-11 08:00] VITALS: BP 168/85
[2020-07-11] MEDS: PANTOPRAZOLE 20 MG TAB PO SCH (08:40)
[2020-07-11] MEDS: HEPARIN SOD (PORCINE) 5000UNITS/ML 1ML VIAL/SYRINGE SC SCH ×2 (08:40→22:52)
[2020-07-11] MEDS: (RENVELA) SEVELAMER **CARBONate** 800 MG TAB PO SCH ×3 (08:40→17:20)
[2020-07-11] MEDS: HumaLOG INSULIN (NovoLOG) PER UNIT SC SCH ×4 (08:40→21:00)
[2020-07-11] MEDS: DOCUSATE SODIUM 100MG CAPSULE PO SCH ×2 (08:41→22:50)
[2020-07-11] MEDS: ENTRESTO 24-26MG TABLET (SACUBITRIL/VALSARTAN) PO SCH ×2 (08:41→22:51)
[2020-07-11] MEDS: **hydrALAZINE** 50 MG TAB PO SCH ×3 (08:41→22:52)
[2020-07-11] MEDS: ISOSORBIDE DIN. (ISORDIL) 20 MG TAB PO SCH ×3 (08:41→22:50)
[2020-07-11] MEDS: CARVedilol 6.25 MG TAB PO SCH ×2 (08:42→22:51)
--- NOTE | 2020-07-11 09:53 | IPNPDOC ---
Text Note Date of Service The patient was seen on 07/11/20. NOTE Subjective: No any acute events overnight. Objective: GENERAL APPEARANCE: NAD HEENT: no scleral icterus, no JVD, EOMI CARDIOVASCULAR: S1S2 LUNGS: CTA ABDOMEN: soft & not tender w palpitation MUSCULOSKELETAL: Left foot covered with dressing, no any discharge INTEGUMENT: no generalized pallor NEUROLOGICAL: cranial nerve function from 2-12 intact intact, follows commands, speech not dysarthric Assessment and plan Patient is 35 years old male with past medical history of hypertension, noncompliant to his medications was found to have acute kidney injury, anemia, sepsis and uncontrolled hypertension Sepsis Resolved Patient had leukocytosis, tachycardia, tachypnea and source of infection is left fourth toe 2/2 gangrene Amputation was done by Dr. Newman Leukocytes count continues to rise, I changed ceftriaxone to cefepime to cover anaerobes. Wound culture positive for Streptococcus group C and Enterobacter cloacae. Anaerobes culture pending Acute renal failure Patient is on dialysis now Patient had significant nephrotic proteinuria Kidney biopsy showed sclerotic changes of cortex. Patient will need permanent dialysis catheter placement. Nephrology team follows him Continue dialysis per nephrology team Stop steroid Autoimmune serologies significant for low C3 level Follow-up with kidney transplant center in the outpatient settings Hyperkalemia Resolved Metabolic acidosis Resolved Continue dialysis Anemia and acute renal failure Patient received 1 unit of blood transfusion on 07/05/20 Continue Babatunde Will check stool for occult blood left fourth toe gangrene/cellulitis of left foot Unknown etiology. Could be secondary to underlying vasculitis Amputation was done on 07/07/20 Secondary hyperparathyroidism Continue Calcitriol. Hypertension Labetalol IV when necessary added Continue carvedilol and hydralazine with isosorbide. The dose of hydralazine was increased. Entresto added. BP improved Systolic CHF Echo showed 1. Study is of good technical quality, underlying sinus rhythm with heart rate around 100 BPM. 2. Mildly dilated, moderately hypertrophy left ventricle with global left ventricular systolic dysfunction and estimated EF around 20% to 25%. At least grade 2 diastolic dysfunction. 3. No aortic valvular disease. 4. Cannot completely rule out the presence of small vegetation on anterior mitral leaflet. Mild mitral insufficiency. 5. Competent tricuspid valve. 6. Elevated central venous pressure. 7. Unable to estimate pulmonary artery pressure. 8. Trivial pericardial effusion. Cardiology team follows patient. Gout not in acute exacerbation Hx multiple annual gouty episodes. Doesn't appear to be in acute episode. US no fluid to aspirate for analysis Peripheral vascular diseases Arterial studies showed atherosclerotic disease in the extremities Started statin Obesity BMI 33.4 complicates care. A1C 5.7% VS,Fishbone, I+O VS, Fishbone, I+O Laboratory Tests 07/11/20 05:31 Vital Signs Date Time Temp Pulse Resp B/P (MAP) Pulse Ox O2 Delivery O2 Flow Rate FiO2 07/11/20 08:41 168/85 07/11/20 08:00 97.9 100 16 97 Room Air 07/07/20 10:45 2 I&O- Last 24 Hours up to 6 AM 07/11/20 06:00 Intake Total 1475 ml Output Total 1067 ml Balance 408 ml ELPIDIO FINN DO Jul 11, 2020 09:53
--- NOTE | 2020-07-11 11:52 | IPN ---
PROGRESS NOTE DATE: 07/11/2020 SUBJECTIVE: Mr. Flood is seen this morning on his bedside. He is feeling well today and denies any complaints. He underwent hemodialysis yesterday and we removed his temporary hemodialysis catheter yesterday. We are planning to place a Permacath tomorrow and blood cultures were drawn this morning. He has been on antibiotics for left foot cellulitis and infected toe, for which he had a toe amputation done. OBJECTIVE: VITAL SIGNS: Temperature 97.9 degrees Fahrenheit, heart rate 100 per minute, and respiratory rate 16 per minute. Blood pressure 168/85 mmHg and oxygen saturation 97% on room air. HEAD: Atraumatic. NECK: Supple and JVD not elevated. Catheter removal site looks clean without any drainage or erythema. HEART: Sounds are tachycardia, but regular. LUNGS: Clear to auscultation. ABDOMEN: Soft and nontender. Bowel sounds are normal. EXTREMITIES: Without any cyanosis or clubbing. NEUROLOGIC: He is awake, alert, and oriented x3. LABORATORY DATA: Today's labs show WBC count 28.2, hemoglobin 10.6, and hematocrit 31.6, platelets 165,000. Sodium 141, potassium 3.8, CO2 of 25, BUN 74, and creatinine 7.69. Glucose 157 and calcium 8.5. PROBLEMS: 1. Acute on chronic renal failure. The patient has been dialysis dependent. His kidney biopsy has been reported to be consistent with most chronic kidney disease and has minimal chance of any improvement. At this point, we are planning to go ahead with Permacath placement so the patient can continue dialysis as an outpatient. He was given steroids initially or presumed acute glomerulonephritis; however, after preliminary report of kidney biopsy became available, his steroids have been stopped. 2. Hypertension. Blood pressure is still somewhat elevated today, although yesterday he had low blood pressure. I am increasing his carvedilol dose to 25 mg b.i.d. in view of tachycardia. 3. Cardiomyopathy. The patient is noticed to have cardiomyopathy with systolic dysfunction. He is on Entresto, hydralazine, and nitroglycerin at present. We are trying to optimize his blood pressure and volume status. I have increased the carvedilol dose in view of tachycardia. 4. Anemia. His anemia is stable and there is no need for any urgent intervention. He is receiving Aranesp. 5. Hemodialysis access. The patient is going to need a Permacath and we will go ahead and schedule him for the next 24-48 hours. He has been on antibiotics for a left foot infection and afebrile. Blood cultures have been ordered for today. I will also give him one dose of vancomycin 1 gram today in anticipation for Permacath placement. I do not feel that he has any bacteremia at present.
[2020-07-11 12:00] VITALS: BP 128/79
[2020-07-11] MEDS ORDERED: VANCOMYCIN HCL 1,000 MG, VIAL MATE ADAPTER 1 EACH in D5W 250 ML IV ONE (13:00)
[2020-07-11 16:00] VITALS: BP 136/75
[2020-07-11] MEDS: CEFEPIME HCL 1 GM in D5W MINI-BAG PLUS 50 ML IV SCH (17:20)
[2020-07-11 20:00] VITALS: BP 133/76
[2020-07-11] MEDS: ATORVASTATIN 20 MG TAB PO SCH (22:51)
[2020-07-12] VITALS: BP 128/66
[2020-07-12 04:00] VITALS: BP 130/61
[2020-07-12 06:02] LABS: BASO # 0.1 10^3/uL (0.0-0.2); BASO % 0.2 % (0.0-1.0); EOS # 0.5 10^3/uL (0.0-0.5); EOS % 1.9 % (0.0-3.0); HEMATOCRIT 32.4 % (42.0-52.0); HEMOGLOBIN 10.5 g/dl (13.5-17.5); LYMPH # 1.8 10^3/uL (1.5-5.0); LYMPH % 7.4 % (24.0-44.0); MEAN CORPUSCULAR HEMOGLOBIN 29.7 pg (27.0-33.0); MEAN CORPUSCULAR HGB CONC 32.4 g/dl (32.0-36.5); MEAN CORPUSCULAR VOLUME 91.8 fl (80.0-96.0); MONO # 1.7 10^3/uL (0.0-0.8); MONO % 6.7 % (0.0-5.0); NEUTROPHILS # 20.1 10^3/uL (1.5-8.5); NEUTROPHILS % 81.7 % (36.0-66.0); PLATELET COUNT, AUTOMATED 183 10^3/uL (150-450); RED BLOOD COUNT 3.53 10^6/uL (4.30-6.10); WHITE BLOOD COUNT 24.6 10^3/uL (4.0-10.0)
[2020-07-12 06:37] LABS: ALBUMIN 2.8 GM/DL (3.2-5.2); BILIRUBIN,TOTAL 0.6 MG/DL (0.2-1.0); CALCIUM LEVEL 8.5 MG/DL (8.5-10.1); CREATININE FOR GFR 8.88 MG/DL (0.70-1.30); GLOMERULAR FILTRATION RATE 7.2 (>60); MAGNESIUM LEVEL 2.2 MG/DL (1.8-2.4); POTASSIUM SERUM 4.1 MEQ/L (3.5-5.1); TOTAL PROTEIN 6.7 GM/DL (6.4-8.2)
[2020-07-12 08:00] VITALS: BP 142/72
[2020-07-12 08:03] LABS: C REACTIVE PROTEIN QUANTITATIV 3.96 MG/DL (0.00-0.30)
--- NOTE | 2020-07-12 08:12 | REP ---
INDICATION: left foot pain COMPARISON: 07/01/2020 TECHNIQUE: AP, lateral, bilateral oblique views left foot. FINDINGS: Prior amputation at the 4th MTP level. Osseous structures demonstrate age-related degenerative changes. Calcified small-vessels suggests underlying diabetic peripheral vascular disease. IMPRESSION: With the exception of amputation at the 4th MTP, evaluation remains stable compared to 07/01/2020. <Electronically signed by Alton Rivera > 07/12/20 0820
[2020-07-12] MEDS: HEPARIN SOD (PORCINE) 5000UNITS/ML 1ML VIAL/SYRINGE SC SCH ×2 (08:25→22:38)
[2020-07-12] MEDS: PANTOPRAZOLE 20 MG TAB PO SCH (08:26)
[2020-07-12] MEDS: CALCITRIOL 0.25 MCG CAP (S0169) PO SCH (08:26)
[2020-07-12] MEDS: HumaLOG INSULIN (NovoLOG) PER UNIT SC SCH ×4 (08:26→21:00)
[2020-07-12] MEDS: (RENVELA) SEVELAMER **CARBONate** 800 MG TAB PO SCH ×3 (08:27→17:36)
[2020-07-12] MEDS: DOCUSATE SODIUM 100MG CAPSULE PO SCH ×2 (08:27→22:39)
[2020-07-12] MEDS: CARVedilol 6.25 MG TAB PO SCH ×2 (08:28→22:38)
[2020-07-12 09:04] LABS: ERYTHROCYTE SEDIMENTATION RATE 56 mm/hr (0-15)
--- NOTE | 2020-07-12 09:31 | REP ---
INDICATION: Osteomyelitis, leukocytosis. Status post 4th toe amputation. COMPARISON: Comparison radiographs 07/12/2020.. TECHNIQUE: Axial, coronal, and sagittal imaging planes utilized. T1 and T2 weighted scans are included with and without fat saturation. FINDINGS: The 4th digit has been amputated across the MTP joint. On inversion recovery T2 fat sat images, there is a pattern of diffuse myofascial edema. This extends along the forefoot and along the volar aspect of the hindfoot. Deep to the plantar fascia. There is no significant edema in the subcutaneous fat. There is a small joint effusion at the ankle at the tibiotalar articulation. Cortical and medullary bone signal intensity is normal. There is no evidence to suggest osteomyelitis. No soft tissue abscess or mass is seen. Plantar fascia smooth. The visualized portions the Achilles tendon and other tendons at the ankle appear intact. 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 IMPRESSION: No evidence of osteomyelitis. Diffuse myofascial edema in the left foot question neurogenic myopathy. No abscess seen. Status post 4th digit amputation at the level of the MTP joint. <Electronically signed by Luis Alejandre > 07/12/20 0927
[2020-07-12] MEDS: ENTRESTO 49-51MG TABLET (SACUBITRIL/VALSARTAN) PO SCH ×2 (09:42→22:38)
--- NOTE | 2020-07-12 10:09 | IPNPDOC ---
Text Note Date of Service The patient was seen on 07/12/20. NOTE Subjective: No any acute events overnight. Patient denied fever, chills, nausea, vomiting or dysuria Objective: GENERAL APPEARANCE: NAD HEENT: no scleral icterus, no JVD, EOMI CARDIOVASCULAR: S1S2 LUNGS: CTA ABDOMEN: soft & not tender w palpitation MUSCULOSKELETAL: Left foot covered with dressing, no any discharge INTEGUMENT: no generalized pallor NEUROLOGICAL: cranial nerve function from 2-12 intact intact, follows commands, speech not dysarthric Assessment and plan Patient is 35 years old male with past medical history of hypertension, noncompliant to his medications was found to have acute kidney injury, anemia, sepsis and uncontrolled hypertension Sepsis Resolved Patient had leukocytosis, tachycardia, tachypnea and source of infection is left fourth toe 2/2 gangrene Amputation was done by Dr. Newman Leukocytes count continues to rise, I changed ceftriaxone to cefepime to cover anaerobes. Pro calcitonin decreased from 5 to 1.8. Patient does not have fever, chills. Foot x-ray ordered. Wound culture positive for Streptococcus group C and Enterobacter cloacae. Anaerobes culture pending I discussed with Dr. Conley arising leukocytes count and possible endocarditis given possibility of of small vegetation on anterior mitral leaflet. He recommended to repeat TTE. Acute renal failure Patient is on dialysis now Permanent dialysis catheter placement on 07/12/20 Patient had significant nephrotic proteinuria Kidney biopsy showed sclerotic changes of cortex. Patient will need permanent dialysis catheter placement. Nephrology team follows him Continue dialysis per nephrology team Stop steroid Autoimmune serologies significant for low C3 level Follow-up with kidney transplant center in the outpatient settings Hyperkalemia Resolved Metabolic acidosis Resolved Continue dialysis Anemia and acute renal failure Patient received 1 unit of blood transfusion on 07/05/20 Continue Babatunde Will check stool for occult blood left fourth toe gangrene/cellulitis of left foot Unknown etiology. Could be secondary to underlying vasculitis Amputation was done on 07/07/20 Secondary hyperparathyroidism Continue Calcitriol. Hypertension Labetalol IV when necessary added Continue carvedilol and hydralazine with isosorbide. The dose of hydralazine was increased. Entresto added. BP improved Systolic CHF Echo showed 1. Study is of good technical quality, underlying sinus rhythm with heart rate around 100 BPM. 2. Mildly dilated, moderately hypertrophy left ventricle with global left ventricular systolic dysfunction and estimated EF around 20% to 25%. At least grade 2 diastolic dysfunction. 3. No aortic valvular disease. 4. Cannot completely rule out the presence of small vegetation on anterior mitral leaflet. Mild mitral insufficiency. 5. Competent tricuspid valve. 6. Elevated central venous pressure. 7. Unable to estimate pulmonary artery pressure. 8. Trivial pericardial effusion. Cardiology team follows patient. Gout not in acute exacerbation Hx multiple annual gouty episodes. Doesn't appear to be in acute episode. US no fluid to aspirate for analysis Peripheral vascular diseases Arterial studies showed atherosclerotic disease in the extremities Started statin Leukocytosis Patient afebrile, doesn't have chills Per calcitonin decreased We'll check sedimentation rate and CRP No ID coverage for past 5 days See above Obesity BMI 33.4 complicates care. A1C 5.7% VS,Fishbone, I+O VS, Fishbone, I+O Laboratory Tests 07/12/20 05:23 Vital Signs Date Time Temp Pulse Resp B/P (MAP) Pulse Ox O2 Delivery O2 Flow Rate FiO2 07/12/20 08:28 83 142/72 07/12/20 08:00 97.3 18 99 Room Air 07/07/20 10:45 2 I&O- Last 24 Hours up to 6 AM 07/12/20 06:00 Intake Total 2360 ml Output Total 0 ml Balance 2360 ml ELPIDIO FINN DO Jul 12, 2020 10:09
[2020-07-12 12:00] VITALS: BP 134/68
--- NOTE | 2020-07-12 12:28 | CR.PDOC ---
General Date of Consultation: Jul 12, [address] Mcmanus HISTORY OF PRESENT ILLNESS: The patient is a 35-year-old male admitted with acute on chronic renal failure. Vascular surgery was consulted for PermCath placement. ALLERGIES: Please see below. HOME MEDICATIONS: Please see below. PAST MEDICAL HISTORY: Hypertension Gout Kidney disease PAST SURGICAL HISTORY: Right knee surgery FAMILY HISTORY: Mother had a history of breast cancer and diabetes Sister living no medical problems Father unknown SOCIAL HISTORY: Nonsmoker REVIEW OF SYSTEMS: As noted in HPI otherwise 11 point review of systems unremarkable. PHYSICAL EXAMINATION: VITAL SIGNS: Please see below. GENERAL APPEARANCE: NAD HEENT: MMM RESPIRATORY: No wheezing CARDIOVASCULAR: Regular rate and rhythm ABDOMEN: Soft nontender ASSESSMENT/PLAN: Acute on chronic renal failure. Vascular surgery consulted for PermCath placement. Plan is for PermCath placement later today as per Dr. Mcmanus. The procedure, risks, benefits and alternatives are discussed with the patient. Informed consent is obtained and placed with the chart. NPO. Vital Signs/I&O Vital Signs Date Time Temp Pulse Resp B/P (MAP) Pulse Ox O2 Delivery O2 Flow Rate FiO2 07/12/20 08:28 83 142/72 07/12/20 08:00 97.3 18 99 Room Air 07/07/20 10:45 2 I&O- Last 24 Hours up to 6 AM 07/12/20 06:00 Intake Total 2360 ml Output Total 0 ml Balance 2360 ml Laboratory Data Labs 24H Laboratory Tests 2 07/11/20 11:41: Bedside Glucose (Misc Panel) 220H 07/11/20 17:11: Bedside Glucose (Misc Panel) 147H 07/11/20 22:54: Bedside Glucose (Misc Panel) 137H 07/12/20 05:23: Immature Granulocyte % (Auto) 2.1, Neutrophils (%) (Auto) 81.7H, Lymphocytes (%) (Auto) 7.4L, Monocytes (%) (Auto) 6.7H, Eosinophils (%) (Auto) 1.9, Basophils (%) (Auto) 0.2, Neutrophils # (Auto) 20.1H, Lymphocytes # (Auto) 1.8, Monocytes # (Auto) 1.7H, Eosinophils # (Auto) 0.5, Basophils # (Auto) 0.1, Nucleated Red Blood Cells % (auto) 0.0, Erythrocyte Sedimentation Rate 56H, Anion Gap 16, Glomerular Filtration Rate 7.2L, Calcium Level 8.5, Magnesium Level 2.2, Total Bilirubin 0.6, Aspartate Amino Transf (AST/SGOT) 18, Alanine Aminotransferase (ALT/SGPT) 26, Alkaline Phosphatase 120H, C-Reactive Protein, Quantitative 3.96H, Total Protein 6.7, Albumin 2.8L, Albumin/Globulin Ratio 0.7 CBC/BMP Laboratory Tests 07/12/20 05:23 Microbiology Microbiology 07/11/20 Blood Culture - Preliminary, Resulted No growth after 24 hours . All specim... 07/07/20 Gram Stain - Final, Complete 07/07/20 Wound Culture - Final, Complete Streptococcus Group C Enterobacter Cloacae Complex 07/07/20 Anaerobic Culture, Received Pending 07/05/20 Blood Culture - Final, Complete NO GROWTH AFTER 5 DAYS 07/05/20 Blood Culture - Final, Complete NO GROWTH AFTER 5 DAYS Allergies Coded Allergies: No Known Drug Allergies (Verified Allergy, Unknown, 07/01/20) Home Medications No Active Prescriptions or Reported Meds Lisa Hernadez Jul 12, 2020 09:18
--- NOTE | 2020-07-12 14:54 | IPN ---
PROGRESS NOTE DATE: 07/12/2020 SUBJECTIVE: The patient is seen and examined. He states his foot is feeling okay, not much pain when the toes are moved. Vitals are reviewed. He has been afebrile. Labs were reviewed. White blood cell count has been trending upward to 24.6. ESR is 56. Imaging studies have been reviewed. X-ray and MRI show appropriate removal of second toe. No signs of osteomyelitis or other abscess. LOWER EXTREMITY EXAMINATION: The erythema of the dorsal foot has receded. The toe amputation site has some granulation tissue. There is some eschar along the incision margin. There is no further progression of gangrene. ASSESSMENT: A 35-year-old male with left second toe gangrene status post amputation. PLAN: There does not appear to be any further infection to the foot. I would treat him with two weeks total coverage for soft tissue infection related to the foot. It does not appear that the foot or toe are the culprits for the trending white blood cell count. Continue Hydrofera Blue dressings, change daily, will follow.
--- NOTE | 2020-07-12 15:42 | REP ---
INDICATION: Vein mapping for AVF.. COMPARISON: None. TECHNIQUE: Bilateral upper extremity arterial and venous Doppler ultrasound. FINDINGS: There is nonocclusive echogenic thrombus visible in the lumen of the right subclavian vein. No thrombus is visible in the right axillary, brachial, cephalic or basilic veins. There is no evidence of venous thrombosis in the left upper extremity veins. The left cephalic vein is not visible in the arm on the left side. The right cephalic vein is unremarkable. Right upper extremity vein diameter chart: Upper humerus basilic vein 6.6 mm, cephalic vein 3.5 mm Lower humerus basilic 4.0, cephalic 3.1 Upper forearm basilic 3.1, cephalic 4.1 Lower forearm basilic 0.8, cephalic 2.7 Median cubital 4.4 Left upper extremity vein diameter chart: Upper humerus basilic 6.1 mm, cephalic not seen Lower humerus basilic 3.1 mm Upper forearm basilic 2.7 mm Lower forearm basilic 3.4 mm Median cubital 3.7 mm Right upper extremity arterial Doppler velocity and artery diameter chart: Right axillary artery PSV 60 cm/S, 5.7 mm Brachial artery 61 cm/S, 4.7 mm Radial artery 53 cm/S, 2.0 mm Ulnar artery 51 cm/S, 2.2 mm Left upper extremity arterial Doppler velocity and arterial diameter chart: Left axillary artery PSV 56 cm/S, 5.4 mm Brachial artery 75 cm/S, 4.8 mm Radial artery 22 cm/S, 2.1 mm Ulnar artery 59 cm/S, 2.6 mm IMPRESSION: Nonocclusive deep venous thrombosis involving the right subclavian vein noted. The left cephalic vein is not visible. Otherwise negative arterial and venous Doppler assessment of the upper extremities bilaterally as above. <Electronically signed by Luis Alejandre > 07/12/20 [id number]
[2020-07-12 16:00] VITALS: BP 142/79
[2020-07-12] MEDS: CEFEPIME HCL 1 GM in D5W MINI-BAG PLUS 50 ML IV SCH (16:15)
--- NOTE | 2020-07-12 18:49 | IPN ---
PROGRESS NOTE DATE: 07/12/2020 SUBJECTIVE: Mr. Flood was seen this morning on his bedside. He is feeling well and denies any fevers or chills. He still has some pain in his left foot. He had an MRI done this morning, which did not show any evidence of osteomyelitis or abscess. The patient denies any nausea or vomiting. PHYSICAL EXAMINATION: Temperature is 97.3 degrees Fahrenheit, heart rate 82 per minute and respiratory rate 18 per minute. Blood pressure 142/72 mmHg and oxygen saturation 99% on room air. Head is atraumatic. Neck supple and without jugular venous distention (JVD) or thyroid enlargement. Heart sounds are regular and lungs sound clear to auscultation. Abdomen is soft and nontender and bowel sounds are normal. Extremities without any cyanosis or clubbing. Left foot is in the dressing. Neurologically, he is awake, alert and oriented times 3. LABORATORY DATA: Today's lab showed WBC count up to 24.6, hemoglobin 10.5 and hematocrit 32.4. Sodium 141, potassium 4.1, Co2 21, BUN 91 and creatinine 8.88. Calcium level is 8.5 and magnesium 2.2. C-reactive protein is up to 3.96 while it was 0.56 on July 10. PROBLEMS: 1. Acute on chronic renal failure. The patient is felt to have end-stage renal disease according to his kidney biopsy results. He has been dialysis dependent since his admission and will continue with maintenance dialysis. I have asked the social problems specialist to arrange for outpatient dialysis. Right now he does not have any dialysis access and we are waiting for a PermCath placement. Will dialyze him as soon as PermCath gets placed. Unfortunately, he has worsening leukocytosis due to which there is some concern and we have drawn blood cultures since yesterday, which are negative so far. All of his previous blood cultures have also been negative. 2. Hypertension. Blood pressure much better now with adjustment in his medications. Continue with the same. 3. Anemia. His anemia has been stable and he will continue with weekly dose of Aranesp. 4. Left foot necrotic toe, status post amputation of 4th left toe. The patient remains on antibiotics, though he is afebrile. His leukocytosis is of uncertain etiology. MRI of his left foot today did not show any evidence of osteomyelitis or abscess. DISPOSITION: The patient is waiting for PermCath placement and also for outpatient dialysis arrangements. He is also on IV antibiotics and will need to have outpatient antibiotics.
[2020-07-12 20:00] VITALS: BP 133/71
[2020-07-12] MEDS: ATORVASTATIN 20 MG TAB PO SCH (22:38)
[2020-07-13] VITALS: BP 133/71
[2020-07-13 04:00] VITALS: BP 120/64
[2020-07-13 05:37] LABS: BASO % 0.2 % (0.0-1.0); EOS # 0.4 10^3/uL (0.0-0.5); EOS % 1.6 % (0.0-3.0); HEMATOCRIT 30.3 % (42.0-52.0); LYMPH # 1.3 10^3/uL (1.5-5.0); LYMPH % 6.2 % (24.0-44.0); MEAN CORPUSCULAR HEMOGLOBIN 30.8 pg (27.0-33.0); MEAN CORPUSCULAR VOLUME 93.2 fl (80.0-96.0); MONO # 1.5 10^3/uL (0.0-0.8); MONO % 7.2 % (0.0-5.0); NEUTROPHILS # 17.9 10^3/uL (1.5-8.5); NEUTROPHILS % 83.3 % (36.0-66.0); PLATELET COUNT, AUTOMATED 141 10^3/uL (150-450); RED BLOOD COUNT 3.25 10^6/uL (4.30-6.10); WHITE BLOOD COUNT 21.4 10^3/uL (4.0-10.0)
[2020-07-13 06:07] LABS: ALBUMIN 2.7 GM/DL (3.2-5.2); BILIRUBIN,TOTAL 0.5 MG/DL (0.2-1.0); CREATININE FOR GFR 9.95 MG/DL (0.70-1.30); GLOMERULAR FILTRATION RATE 6.3 (>60); MAGNESIUM LEVEL 2.2 MG/DL (1.8-2.4); POTASSIUM SERUM 4.3 MEQ/L (3.5-5.1); TOTAL PROTEIN 6.2 GM/DL (6.4-8.2)
[2020-07-13] MEDS ORDERED: LIDOCAINE W/EPINEPHRINE 1% 20ML VIAL As Ordered ONE (06:22)
[2020-07-13] MEDS ORDERED: ceFAZolin 1GM VIAL (J0690 PER 500MG) As Ordered ONE (06:53)
[2020-07-13] MEDS ORDERED: MIDAZOLAM INJ 2MG/2ML VIAL (J2250 PER 1MG) As Ordered ONE (06:57)
[2020-07-13] MEDS ORDERED: fentaNYL 100 MCG/2 ML INJECTION (J3010) As Ordered ONE (06:57)
[2020-07-13] MEDS: HumaLOG INSULIN (NovoLOG) PER UNIT SC SCH ×4 (07:30→20:54)
[2020-07-13] MEDS ORDERED: VANCOMYCIN HCL 750 MG, VIAL MATE ADAPTER 1 EACH in D5W 250 ML IV SCH (07:45)
[2020-07-13] MEDS: (RENVELA) SEVELAMER **CARBONate** 800 MG TAB PO SCH ×3 (08:00→17:33)
--- NOTE | 2020-07-13 08:00 | ROOPDOC ---
[facility] Report Of Operation Report of Operation DATE OF PROCEDURE: 07/13/20 PREPROCEDURE DIAGNOSES: ESRD requiring access for dialysis POSTPROCEDURE DIAGNOSES: Same PROCEDURE: 1. US guided access LIJ 2. Placement LIJ 27cm tunneled permcath SURGEON: Karolina Mcmanus MD ANESTHESIA: Local anesthesia 18 mL lidocaine with epinephrine. Moderate intr avenous conscious sedation was supervised by Dr. Mcmanus. The patient was independently monitored by registered nurse assigned to the Department of radiology using automated blood pressure, EKG, and pulse oximetry. A detailed sedation record is permanently stored in the hospital information system. The following is a brief sedation record: Start time 07:29, stop time 07:46, Versed 1 mg IV, fentanyl 50 g IV. INDICATION FOR PROCEDURE: This a very pleasant 35-year-old gentleman with renal failure requiring access for dialysis. Risks benefits and alternatives to a PermCath were explained to the patient he is agreeable to proceed. I have reviewed with our hospitalist and nephrology colleagues that I am a little concerned regarding his increasing white blood cell count, but he has had negative blood cultures before and after antibiotics, and no fevers. He will remain on IV antibiotics for now per the hospitalist team, and therefore we will go ahead and proceed with PermCath placement. After discussing the risks benefits alternatives the patient was agreeable and informed consent was obtained. INTERPRETATION: The left IJ PermCath is in good position with the tip freely mobile at the right atrial SVC junction. There are no kinks in the catheter. There is no pneumothorax. It is okay to use the catheter for dialysis. REPORT OF OPERATION: The patient was brought to the radiology suite in stable condition. His left neck and chest were prepped and draped in a sterile fashion. We examined his right jugular vein preprocedure and noted a small amount of thrombus in the vein, likely secondary to recent temporary dialysis catheter placement. We therefore avoided this vein in favor of the left IJ vein which was thrombus free. Hopefully this will help allow his body to break down the right IJ thrombus and preserved that vein for future use. A timeout was performed. Sedation was administered without complication. Local anesthesia was administered to the skin and subcutaneous tissue over the left neck, left shoulder. A microneedle was used to access left internal jugular vein under ultrasound guidance. A wire was passed through this access and the needle was removed and a small incision was made with the skin knife. A micro-sheath was placed and then a J-wire was advanced through this access into the central system under fluoroscopic guidance. We were able to navigate the wire safely into the IVC. We then performed 2 serial dilations over the wire using a Seldinger technique under fluoroscopic guidance in the peel-away sheath was placed. We then made a small incision 1 cm distal to the clavicle on the lateral left chest and a 27 cm PermCath was tunneled from the right chest to the jugular access site. The tips were placed through the peel-away sheath and the peel-away sheath was removed. Both ports stewart back and flushed easily. Final imaging showed the catheter to be in good position, no kinks in the catheter, and no pneumothorax. Both ports were heparin locked and appropriate caps were placed. The jugular access site was closed with deep and superficial Monocryl suture and Dermabond. Prolene sutures were used to close the access site on the left chest and secure the catheter to the chest wall. Appropriate sterile dressings were applied to the catheter. The patient was then taken to recovery in stable condition. He will go directly to dialysis this morning. He tolerated the procedure and the sedation well. ESTIMATED BLOOD LOSS: Approximately 5 mL. COMPLICATIONS: None. PLAN: It is okay to use the PermCath for dialysis. The patient will need long- term dialysis, we would like to obtain a bilateral procedure extremity vein mapping and see him in clinic as an outpatient to discuss options for AV fistula creation. Try to keep the head of bed elevated greater than 45 today to minimize the risk of bleeding or bruising around the catheter. We appreciate the opportunity to participate in the care of this patient. KAROLINA MCMANUS MD Jul 13, 2020 08:00
[2020-07-13] MEDS: DARBEPOETIN 200MCG/0.4ML *DIALYSIS* SYRINGE (J0882 PER 1MCG) IV SCH (08:47)
[2020-07-13] MEDS: IRON SUCROSE 100MG 5ML VIAL (J1756 PER 1MG) IV SCH (09:46)
--- NOTE | 2020-07-13 11:58 | IPNPDOC ---
Date Seen The patient was seen on 07/13/20. Progress Note Subjective: CASIE planned for 07/14/20, WBC still elevated at 21.4, afebrile. Dialysis catheter placed this AM, HD today. Patient denied fever, chills, nausea, vomiting or dysuria Objective: GENERAL APPEARANCE: NAD HEENT: no scleral icterus, no JVD, EOMI CARDIOVASCULAR: S1S2 LUNGS: CTA ABDOMEN: soft & not tender w palpitation MUSCULOSKELETAL: Left foot wound appears well healed, nonsuppurative, scabbed in areas but tissue appears clearn. No cellulitis or tenderness to palpation. INTEGUMENT: no generalized pallor NEUROLOGICAL: cranial nerve function from 2-12 intact intact, follows commands, speech not dysarthric LABORATORY: Please see below MICROBIOLOGY: Anaerobic Cx: Provotella Anaerobic #1 Anaerobic #2 Aerobic Cx: Strep Group C, Enterobacter Cl. BCx to date: IMAGING: Echocardiogram: 1. Study is of good technical quality, underlying sinus rhythm with heart rate around 100 BPM. 2. Mildly dilated, moderately hypertrophy left ventricle with global left ventricular systolic dysfunction and estimated EF around 20% to 25%. At least grade 2 diastolic dysfunction. 3. No aortic valvular disease. 4. Cannot completely rule out the presence of small vegetation on anterior mitral leaflet. Mild mitral insufficiency. 5. Competent tricuspid valve. 6. Elevated central venous pressure. 7. Unable to estimate pulmonary artery pressure. 8. Trivial pericardial effusion. ASSESSMENT: Patient is 35 years old male with past medical history of hypertension, noncom pliant to his medications was found to have acute kidney injury, anemia, sepsis and uncontrolled hypertension. PLAN: Leukocytosis possibly 2/2 to left fourth toe gangrene/cellulitis of left foot s /p 4th toe amputation (07/07/20) vs. endocarditis? Resolved sepsis -WBC 21.4. -Cefepime added 07/12/20; however, does not cover both aerobic bacteria and unknown if covers anaerobic microbes -Added vancomycin today -See individual plans for treatment below Left fourth toe gangrene/cellulitis of left foot s/p 4th toe amputation (07/07/20) -Despite cont. leukocytosis, appears well healing. Afebrile -Aerobic and anaerobic cx above -BCx neg -Dr. Newman- podiatry consulted if needed to further discuss -C/w abx above -Daily CBC Vegetation on anterior mitral leaflet r/o endocarditis -WBC elevated persistent, abnormal echo, no murmur -Dr. Conley, cardiology consulted and following -CASIE for 07/14/20, f/u results -Added Vancomycin for additional coverage. Acute on chronic kidney disease -Patient had significant nephrotic proteinuria -Kidney biopsy showed sclerotic changes of cortex. -Dialysis catheter placed this AM, HD today -Follow up daily CMP -Nephrology following. Anemia 2/2 to renal failure -S/p 1 unit of blood transfusion on 07/05/20 -C/w Continue Aranesp and Venofer Secondary hyperparathyroidism -C/w Calcitriol. Hypertension -Stable -C/w current meds Systolic CHF -Echo showed -Controlled -C/w cardiology meds, recommendations Gout -Stable Peripheral vascular diseases -Arterial studies showed atherosclerotic disease in the extremities -C/w current treatment Obesity -BMI 33.4 complicates care. A1C 5.7% DVT px -Heparin Resolved issues: Hyperkalemia Metabolic acidosis DISPOSITION: Plan is discharge home when medically improved. VS, I&O, 24H, Fishbone Vital Signs/I&O Vital Signs Date Time Temp Pulse Resp B/P (MAP) Pulse Ox O2 Delivery O2 Flow Rate FiO2 07/13/20 08:04 76 18 99 Room Air 07/13/20 07:45 2 07/13/20 06:42 98.1 07/13/20 04:00 120/64 (82) I&O- Last 24 Hours up to 6 AM 07/13/20 06:00 Intake Total 360 ml Balance 360 ml Laboratory Data 24H LABS Laboratory Tests 2 07/12/20 17:13: Bedside Glucose (Misc Panel) 100 07/12/20 22:40: Bedside Glucose (Misc Panel) 201H 07/13/20 05:28: Immature Granulocyte % (Auto) 1.5, Neutrophils (%) (Auto) 83.3H, Lymphocytes (%) (Auto) 6.2L, Monocytes (%) (Auto) 7.2H, Eosinophils (%) (Auto) 1.6, Basophils (%) (Auto) 0.2, Neutrophils # (Auto) 17.9H, Lymphocytes # (Auto) 1.3L, Monocytes # (Auto) 1.5H, Eosinophils # (Auto) 0.4, Basophils # (Auto) 0.0, Nucleated Red Blood Cells % (auto) 0.0, Anion Gap 15, Glomerular Filtration Rate 6.3L, Calcium Level 8.0L, Magnesium Level 2.2, Total Bilirubin 0.5, Aspartate Amino Transf (AST/SGOT) 14, Alanine Aminotransferase (ALT/SGPT) 21, Alkaline Phosphatase 119H, Total Protein 6.2L, Albumin 2.7L, Albumin/Globulin Ratio 0.8 CBC/BMP Laboratory Tests 07/13/20 05:28 Microbiology Microbiology 07/11/20 Blood Culture - Preliminary, Resulted No Growth after 48 hours. All Specime... 07/07/20 Gram Stain - Final, Complete 07/07/20 Wound Culture - Final, Complete Streptococcus Group C Enterobacter Cloacae Complex 07/07/20 Anaerobic Culture - Final, Complete Prevotella Bivia Anaerobic Cocci Anaerobic Cocci#2 07/05/20 Blood Culture - Final, Complete NO GROWTH AFTER 5 DAYS 07/05/20 Blood Culture - Final, Complete NO GROWTH AFTER 5 DAYS Current Medications Current Medications Medications (Trade) Dose Ordered Sig/Todd Route PRN Reason Start Time Stop Time Status Last Admin Dose Admin Acetaminophen (Tylenol Tab) 650 mg Q4H PRN PO PAIN OR FEVER 07/01/20 21:30 07/09/20 20:38 Al Hydrox/Mg Hydrox/Simethicone (Mylanta) 30 ml DAILY PRN PO DYSPEPSIA 07/01/20 21:30 Amlodipine Besylate (Norvasc) 5 mg DAILY PO 07/09/20 09:00 07/09/20 12:35 DC 07/09/20 08:36 Amlodipine Besylate (Norvasc) 10 mg DAILY PO 07/02/20 09:00 07/04/20 11:17 DC 07/04/20 08:38 Atorvastatin Calcium (Lipitor) 40 mg QHS PO 07/07/20 21:00 07/12/20 22:38 Calcitriol (Rocaltrol) 0.25 mcg MoWeFr@0900 PO 07/05/20 09:00 07/12/20 08:26 Carvedilol (COReg) 3.125 mg BID PO 07/02/20 09:00 07/04/20 10:50 DC 07/04/20 08:38 Carvedilol (COReg) 6.25 mg BID PO 07/04/20 21:00 07/06/20 19:54 DC 07/06/20 13:13 Carvedilol (COReg) 12.5 mg BID PO 07/06/20 21:00 07/11/20 11:22 DC 07/11/20 08:42 Carvedilol (COReg) 25 mg BID PO 07/11/20 21:00 07/12/20 22:38 Cefazolin Sodium 1 gm/Dextrose 50 ml @ 100 mls/hr Q8H IV 07/01/20 22:00 07/02/20 01:42 DC 07/02/20 01:30 Cefazolin Sodium 1 gm/Dextrose 50 ml @ 100 mls/hr Q8H IV 07/02/20 10:00 07/03/20 07:40 DC 07/03/20 03:05 Cefepime HCl 1 gm/ Dextrose 50 ml @ 100 mls/hr Q24H IV 07/10/20 16:00 07/12/20 16:15 Ceftriaxone Sodium 1 gm/ Dextrose 50 ml @ 100 mls/hr Q24H IV 07/03/20 10:00 07/10/20 09:59 DC 07/09/20 09:39 Darbepoetin [place] (Aranesp (Dialysis Use)) 200 mcg HD IV 07/03/20 12:15 07/13/20 08:47 Dextrose (Dextrose 50%) 25 ml ASDIRECTED PRN IV SEE LABEL COMMENTS 07/06/20 13:00 Docusate Sodium (Colace) 100 mg BID PO 07/02/20 09:00 07/12/20 22:39 Fentanyl Citrate (Sublimaze) 25 mcg Q5MP PRN IV PAIN LEVEL 5-10 07/07/20 11:30 07/07/20 12:30 DC Ferrous Sulfate (Ferrous Sulfate) 325 mg DAILY PO 07/03/20 09:00 07/08/20 09:31 DC 07/08/20 08:39 Glucagon (Glucagon) 1 mg ASDIRECTED PRN SC SEE LABEL COMMENTS 07/06/20 13:00 Glucose (Glucose) 16 GM ASDIRECTED PRN PO SEE LABEL COMMENTS 07/06/20 13:00 Heparin Sodium (Heparin) Please refer to ... ASDIRECTED XX 07/05/20 08:00 07/06/20 08:00 DC Heparin Sodium (Heparin) Please refer to ... ASDIRECTED XX 07/05/20 20:45 07/06/20 20:44 DC Heparin Sodium (Heparin) Please refer to ... ASDIRECTED XX 07/07/20 08:15 07/08/20 08:14 DC Heparin Sodium (Heparin) Please refer to ... ASDIRECTED XX 07/10/20 08:00 07/11/20 07:59 DC Heparin Sodium (Heparin) dose as per volume indica... ASDIRECTED PRN IV SEE LABEL COMMENTS 07/05/20 08:00 07/05/20 10:44 DC Heparin Sodium (Heparin) dose as per volume indica... ASDIRECTED PRN IV SEE LABEL COMMENTS 07/05/20 20:45 07/06/20 20:44 DC Heparin Sodium (Heparin) dose as per volume indica... ASDIRECTED PRN IV SEE LABEL COMMENTS 07/07/20 08:15 07/08/20 08:14 DC Heparin Sodium (Heparin) dose as per volume indica... ASDIRECTED PRN IV SEE LABEL COMMENTS 07/10/20 08:00 07/10/20 12:59 DC Heparin Sodium (Porcine) (Heparin) 5,000 units Q12H SC 07/02/20 09:00 07/12/20 22:38 Home Med (Med Rec Complete!) ASDIRECTED XX 07/01/20 17:45 07/01/20 17:46 DC Hydralazine HCl (Apresoline) 5 mg Q6H PRN IV SBP>160 07/01/20 21:30 07/02/20 08:01 DC Hydralazine HCl (Apresoline) 20 mg Q8H PO 07/04/20 14:00 07/06/20 19:58 DC 07/06/20 13:14 Hydralazine HCl (Apresoline) 25 mg TID PO 07/06/20 21:00 07/07/20 16:55 DC 07/07/20 15:42 Hydralazine HCl (Apresoline) 50 mg TID PO 07/07/20 21:00 07/12/20 08:01 DC 07/11/20 22:52 Hydromorphone HCl (Dilaudid) 0.3 mg Q3HP PRN IV MILD PAIN (PS 1-4) 07/10/20 00:15 Hydromorphone HCl (Dilaudid) 0.6 mg Q3HP PRN IV MODERATE PAIN (PS 5-7) 07/10/20 00:15 07/10/20 00:53 Insulin Detemir (Levemir Insulin) 5 units BID SC 07/09/20 09:00 07/09/20 07:48 DC Insulin Human Lispro (HumaLOG INSULIN) See Protocol Table AC SC 07/06/20 12:00 07/12/20 08:26 Insulin Human Lispro (HumaLOG INSULIN) See Protocol Table QHS SC 07/06/20 21:00 07/08/20 20:03 Iron (Venofer) 100 mg HD IV 07/03/20 12:15 07/13/20 09:46 Isosorbide Dinitrate (Isordil) 10 mg Q8H PO 07/04/20 14:00 07/06/20 19:55 DC 07/06/20 13:14 Isosorbide Dinitrate (Isordil) 20 mg TID PO 07/06/20 21:00 07/12/20 08:01 DC 07/11/20 22:50 Labetalol HCl (Normodyne, Trandate) 10 mg Q1H PRN IV htn 07/06/20 16:30 07/09/20 08:49 Lactated Ringer's 1,000 ml @ 100 mls/hr Q10H IV 07/07/20 11:30 07/07/20 12:30 DC Lidocaine HCl (Lidocaine 1% Sdv) 0.5 ml ASDIRECTED PRN SC SEE LABEL COMMENTS 07/05/20 08:00 07/05/20 10:44 DC Magnesium Hydroxide (Milk Of Magnesia) 30 ml DAILY PRN PO CONSTIPATION 07/01/20 21:30 Meperidine HCl (Demerol) 12.5 mg Q5MP PRN IV SHIVERING 07/07/20 11:30 07/07/20 12:30 DC Metoclopramide HCl (REGLAN INJection) 10 mg Q6HP PRN IV NAUSEA OR VOMITING 07/07/20 11:30 07/07/20 12:30 DC Nitroglycerin (Nitrobid 2%) 0.5 INCH, apply to base... BID TOP 07/02/20 09:00 07/05/20 13:40 DC 07/05/20 09:53 Non-Formulary Medication ( See Comment Field Below ) CHECK TO SEE IF THE PATIENT... DAILY@1600 XX 07/06/20 16:00 07/06/20 16:46 DC 07/06/20 16:17 Non-Formulary Medication ( See Comment Field Below ) CHECK TO SEE IF THE PATIENT... DAILY@1600 XX 07/13/20 16:00 Non-Formulary Medication ( See Comment Field Below ) VANCO INTERMIT. DOSING ASDIRECTED XX 07/02/20 04:30 07/05/20 15:01 DC Non-Formulary Medication ( See Comment Field Below ) VANCO INTERMIT. DOSING ASDIRECTED XX 07/07/20 09:00 07/06/20 16:46 DC Ondansetron HCl (ZOFRAN INJection) 4 mg Q4HP PRN IV NAUSEA OR VOMITING 07/07/20 11:30 07/07/20 12:30 DC Oxycodone HCl (Roxicodone, Oxyir) 5 mg ASDIRECTED PRN PO PAIN LEVEL 1-4 07/07/20 11:30 07/07/20 12:30 DC Pantoprazole Sodium (Protonix) 20 mg DAILY PO 07/11/20 09:00 07/12/20 08:26 Pantoprazole Sodium (Protonix) 40 mg DAILY IV 07/04/20 09:00 07/10/20 15:16 DC 07/10/20 08:10 Prednisone (Deltasone) 60 mg DAILY PO 07/07/20 09:00 07/08/20 14:01 DC 07/08/20 08:40 Sacubitril/ Valsartan (Entresto 24-26 Mg) 1 tab BID PO 07/09/20 09:00 07/12/20 08:01 DC 07/11/20 22:51 Sacubitril/ Valsartan (Entresto 49-51 Mg) 1 tab BID PO 07/12/20 09:00 07/12/20 22:38 Sevelamer Carbonate (Renvela) 800 mg WM PO 07/03/20 12:30 07/12/20 17:36 Sodium Chloride 1,000 ml @ 100 mls/hr Q10H IV 07/01/20 21:30 07/03/20 03:29 DC 07/02/20 17:38 Sodium Chloride (Nacl 0.9%) 200 ml ASDIRECTED PRN IV SEE LABEL COMMENTS 07/05/20 08:00 07/06/20 08:00 DC Sodium Chloride (Nacl 0.9%) 200 ml ASDIRECTED PRN IV SEE LABEL COMMENTS 07/06/20 08:00 07/07/20 07:59 DC Sodium Chloride (Nacl 0.9%) 200 ml ASDIRECTED PRN IV SEE LABEL COMMENTS 07/07/20 08:15 07/08/20 08:14 DC Sodium Chloride (Nacl 0.9%) 200 ml ASDIRECTED PRN IV SEE LABEL COMMENTS 07/10/20 08:00 07/11/20 07:59 DC Vancomycin HCl 750 mg/IV Miscellaneous Supplies 1 each/ Dextrose 275 ml @ 275 mls/hr Q24H IV 07/13/20 07:45 07/13/20 08:38 DC Vancomycin HCl 1000 mg/IV Miscellaneous Supplies 1 each/ Dextrose 270 ml @ 270 mls/hr HD IV 07/06/20 09:00 07/06/20 15:12 DC Vancomycin HCl 1000 mg/IV Miscellaneous Supplies 1 each/ Dextrose 270 ml @ 270 mls/hr Q1H IV 07/13/20 12:00 07/13/20 13:59 Allergies Coded Allergies: No Known Drug Allergies (Verified Allergy, Unknown, 07/01/20) Inez Blackwood MD Jul 13, 2020 11:58
[2020-07-13 12:40] VITALS: BP 140/81
--- NOTE | 2020-07-13 12:52 | IPN ---
NEPHROLOGY PROGRESS NOTE DATE: 07/13/2020 SUBJECTIVE: Mr. Flood is seen during hemodialysis this morning. He underwent new Permacath placement in left internal jugular vein this morning which is currently being used for dialysis. Patient reports that he was informed by Hospitalist this morning that he is going to need a transesophageal echocardiogram in view of his leukocytosis and no other obvious source. Patient denies any dyspnea, chest pain, fever or chills. PHYSICAL EXAMINATION: Temperature 98 degrees Fahrenheit, heart rate 76 per minute and respiratory rate 18 per minute. Blood pressure 130/80 mmHg and oxygen saturation 99% on room air. Head: Atraumatic. Neck: Supple and without JVD or thyroid enlargement. Chest: Permacath on left upper chest is without any bleeding. Heart: Sounds are regular and without a pericardial friction rub. Lungs: Clear to auscultation. Abdomen: Soft and nontender and bowel sounds are normal. Extremities: Without any cyanosis or clubbing. Neurologically: He is awake, alert and oriented times 3. LABORATORY DATA: All his blood cultures have been negative so far. The only culture positive was his wound culture from his left foot. Today's labs show WBC count down to 21.4, hemoglobin 10, hematocrit 30.3. Sodium 140, potassium 4.3, BUN 108, creatinine 9.95. PROBLEMS/PLAN: 1. End-stage renal disease: Patient remains dialysis dependent and is being dialyzed today. We have asked social media editor to arrange for outpatient dialysis. 2. Cardiomyopathy: Etiology is uncertain. Patient has been on Entresto and carvedilol. Echocardiogram will need to be repeated in a few months. 3. Anemia: His anemia has improved since admission and stable now. He continues with Aranesp once a week. 4. Leukocytosis probably related to steroids and left foot infection: He had amputation of his fourth toe on left foot. Steroids have been already stopped. I do not see any evidence of active infection at this point. MRI of his left foot was negative for osteomyelitis and blood cultures are all negative so far. 5. Dialysis access: Patient had a new Permacath placed this morning. He already had ultrasound of both his upper extremities done for vein mapping and an AV fistula will be created as an outpatient.
[2020-07-13] MEDS: CARVedilol 6.25 MG TAB PO SCH ×2 (13:07→20:54)
[2020-07-13] MEDS: VANCOMYCIN HCL 1,000 MG, VIAL MATE ADAPTER 1 EACH in D5W 250 ML IV SCH ×2 (13:07→15:06)
[2020-07-13] MEDS: ENTRESTO 49-51MG TABLET (SACUBITRIL/VALSARTAN) PO SCH ×2 (13:08→20:53)
[2020-07-13] MEDS: DOCUSATE SODIUM 100MG CAPSULE PO SCH ×2 (13:08→20:53)
[2020-07-13] MEDS: PANTOPRAZOLE 20 MG TAB PO SCH (13:08)
[2020-07-13] MEDS: HEPARIN SOD (PORCINE) 5000UNITS/ML 1ML VIAL/SYRINGE SC SCH ×2 (13:08→20:53)
[2020-07-13 16:00] VITALS: BP 136/76
[2020-07-13] MEDS ORDERED: **VANCO AFTER HD** MISC XX SCH (16:00)
[2020-07-13] MEDS: metroNIDAZOLE 500 MG in IV 1 EA IV SCH ×2 (16:14→23:51)
[2020-07-13] MEDS: CEFEPIME HCL 1 GM in D5W MINI-BAG PLUS 50 ML IV SCH (17:17)
[2020-07-13 20:00] VITALS: BP 127/56
[2020-07-13] MEDS: ATORVASTATIN 20 MG TAB PO SCH (20:53)
[2020-07-13] MEDS: ACETAMINOPHEN TAB 650MG DOSE (2X325MG) PO PRN (20:54)
[2020-07-14] VITALS: BP 129/67
[2020-07-14] MEDS: ACETAMINOPHEN TAB 650MG DOSE (2X325MG) PO PRN (01:06)
[2020-07-14 04:00] VITALS: BP 116/65
[2020-07-14 05:20] LABS: HEMATOCRIT 29.7 % (42.0-52.0); HEMOGLOBIN 9.5 g/dl (13.5-17.5); MEAN CORPUSCULAR HEMOGLOBIN 29.8 pg (27.0-33.0); MEAN CORPUSCULAR VOLUME 93.1 fl (80.0-96.0); PLATELET COUNT, AUTOMATED 145 10^3/uL (150-450); RED BLOOD COUNT 3.19 10^6/uL (4.30-6.10); WHITE BLOOD COUNT 14.9 10^3/uL (4.0-10.0)
[2020-07-14 05:44] LABS: ALBUMIN 2.5 GM/DL (3.2-5.2); BILIRUBIN,TOTAL 0.4 MG/DL (0.2-1.0); CALCIUM LEVEL 8.1 MG/DL (8.5-10.1); CREATININE FOR GFR 6.98 MG/DL (0.70-1.30); GLOMERULAR FILTRATION RATE 9.5 (>60); POTASSIUM SERUM 4.3 MEQ/L (3.5-5.1); TOTAL PROTEIN 6.3 GM/DL (6.4-8.2)
[2020-07-14] MEDS: metroNIDAZOLE 500 MG in IV 1 EA IV SCH (06:29)
[2020-07-14] MEDS: HumaLOG INSULIN (NovoLOG) PER UNIT SC SCH ×2 (07:30→13:20)
[2020-07-14 08:00] VITALS: BP 121/69
--- NOTE | 2020-07-14 08:14 | IPN ---
PROGRESS NOTE DATE: 07/14/2020 SUBJECTIVE: Mr. Flood is seen in his room. He has been feeling relatively well. He was able to sleep and besides mild pain at the site of amputation on his left foot he did not have any other complaints. He denies any dyspnea, chest pain or shortness of breath. PHYSICAL EXAMINATION: VITAL SIGNS: Blood pressure 116/65, heart rate has been in the 70s and 80s, sinus rhythm. He is afebrile. Saturation is 95% on room air. Weight is recorded at 107.8 kg which is about 4 kg down from his admission weight. GENERAL: He is alert, oriented and appropriate. NECK: His JVP is not high. LUNGS: Reasonably clear. I do not hear any wheezing, crackles or rhonchi. There is a dialysis catheter through the left IJ. HEART: Regular rhythm. There is a faint murmur at the apex, about 2/6 intensity suggestive of mitral insufficiency. I do not appreciate a gallop or rub. ABDOMEN: Soft without tenderness. EXTREMITIES: Free of edema. Peripheral pulses are of good quality. LABORATORY DATA: Basic metabolic panel reveals a sodium of 138, potassium 4.3, BUN 63, creatinine 7.0 and glucose 137. CBC shows a WBC count of 14.9, hemoglobin of 9.5, hematocrit 29.7, platelet count of 145,000. All the blood cultures remain negative. There are a variety of bacteria growing from his wound cultures from both on admission as well as the . ASSESSMENT AND PLAN: Mr. Flood is a 35-year-old man who presented with necrotic toe and was found to have advanced renal failure together with cardiomyopathy with very low left ventricular systolic function. He eventually was started on dialysis and was also started on appropriate medications for LV dysfunction that currently includes a medium dose of Entresto 100 mg twice a day. He is on Carvedilol 25 mg twice a day as well. He has been tolerating these medications without any apparent hypotensive complications. There have not been significant arrhythmias on telemetry. Unfortunately, there has been persistent concern about the possibility of endocarditis, especially the presentation with a necrotic toe in the presence of good peripheral pulses certainly is suggestive of embolic event. He also had extremely elevated sedimentation rate on admission and consequently concern about endocarditis is relatively high. All the cultures were negative and he has never had fever as such but nevertheless I was asked by his attending physician yesterday to perform a transesophageal echocardiogram which I believe is a reasonable test to proceed with. We tentatively are scheduled to have this done at lunchtime. I spoke about the procedure with the patient extensively yesterday and even in more detail this morning. I explained the reasons to perform it, the potential outcomes and complications. He did sign appropriate consent. Otherwise, provided the transesophageal echocardiogram reveals no evidence for vegetations I believe from a cardiac perspective can be discharged home on his current medications.
[2020-07-14] MEDS: DOCUSATE SODIUM 100MG CAPSULE PO SCH (08:43)
[2020-07-14 08:44] VITALS: BP 120/58
[2020-07-14] MEDS: CARVedilol 6.25 MG TAB PO SCH (08:44)
[2020-07-14] MEDS: PANTOPRAZOLE 20 MG TAB PO SCH (08:45)
[2020-07-14] MEDS: (RENVELA) SEVELAMER **CARBONate** 800 MG TAB PO SCH ×2 (08:46→13:19)
[2020-07-14] MEDS: ENTRESTO 49-51MG TABLET (SACUBITRIL/VALSARTAN) PO SCH (08:46)
[2020-07-14] MEDS: CALCITRIOL 0.25 MCG CAP (S0169) PO SCH (08:46)
[2020-07-14] MEDS: HEPARIN SOD (PORCINE) 5000UNITS/ML 1ML VIAL/SYRINGE SC SCH ×2 (08:47→08:57)
[2020-07-14] MEDS ORDERED: LIDOCAINE 2% 100MG/5ML SDV (FOR ANES.) As Ordered ONE (09:49)
[2020-07-14] MEDS ORDERED: dexameTHASONE 4 MG/ML 1ML VIAL (J1100 PER 1MG) As Ordered ONE (09:49)
[2020-07-14] MEDS ORDERED: ONDANSETRON 4MG/2ML VIAL As Ordered ONE (09:49)
[2020-07-14] MEDS ORDERED: MIDAZOLAM INJ 2MG/2ML VIAL (J2250 PER 1MG) As Ordered ONE (09:50)
[2020-07-14] MEDS ORDERED: fentaNYL 100 MCG/2 ML INJECTION (J3010) As Ordered ONE (09:50)
[2020-07-14] MEDS ORDERED: propofoL 500 MG/50 ML VIAL As Ordered ONE (09:50)
[2020-07-14] MEDS ORDERED: CETACAINE SPRAY 5GM As Ordered ONE (11:27)
[2020-07-14] MEDS ORDERED: LIDOCAINE VISCOUS 2% SOLN 15ML UDC As Ordered ONE (11:28)
--- NOTE | 2020-07-14 12:12 | ECHO ---
DATE OF PROCEDURE: 07/12/2020 Age: 35 Gender: Male Height: 183 cm Weight: 190 kg REFERRING PHYSICIAN: Elvis Hernandez DO INDICATION: Congestive heart failure. MEASUREMENTS: IVS 1.3 cm LV 6.0 cm LVPW 1.4 cm LA 4.5 cm Aorta 3.1 cm RV 3.6 cm IVC 1.4 cm Mitral E wave velocity 91 cm/s Mitral A wave 63 cm/s E prime septal 6.4 cm/s E prime lateral 5.7 cm/s FINDINGS: This is study is of fair technical quality. Underlying sinus rhythm. The left ventricle is mildly dilated and globally hypokinetic. Estimated LVEF in the neighborhood of 20% to 25%. Right ventricle is relatively poorly seen, but it does not appear grossly enlarged. There is biatrial enlargement. The aortic valve is mildly sclerotic, but appears to have normal mobility. Mitral valve has preserved mobility as well. Again as on the study performed 10 days ago, on some views there is a suspicion that there might be vegetation of the mitral valve, even though no definite vegetation convincingly seen. Tricuspid valve appears normal. Pulmonic valve also appears normal based on fair visualization. There is a small noncompressive pericardial effusion. Inferior vena cava is of normal size. Aortic root and aortic arch appear normal. Doppler interrogation reveals no aortic stenosis or insufficiency. There is mild mitral insufficiency and trace tricuspid insufficiency. Unfortunately, quality of TR jet was not sufficient to estimate pulmonary artery pressure. Pulmonic valve is functionally competent. Mitral inflow pattern and tissue Doppler imaging of mitral annulus revealed grade 2 diastolic dysfunction. CONCLUSIONS: * Study is of fair technical quality, underlying sinus rhythm. * Mildly dilated left ventricle with at least [id number] left ventricular hypertrophy and overall global LV hypokinesis with estimated LVEF in the neighborhood of 20% to 25%. Grade 2 diastolic dysfunction. * No hemodynamically significant valvular disease. * Cannot completely rule out the presence of vegetation of the mitral valve. * Likely normal central venous pressure. * Unable to estimate pulmonary artery pressure. * Small noncompressive pericardial effusion. COMMENTS: Even though the quality of the study is not as good as it was 10 days ago, there is probably no significant change. MTDD
[2020-07-14] MEDS ORDERED: LR 1,000 ML IV SCH (13:00)
[2020-07-14] MEDS ORDERED: ONDANSETRON 4MG/2ML VIAL IV PRN (13:00)
[2020-07-14] MEDS ORDERED: fentaNYL 100 MCG/2 ML INJECTION (J3010) IV PRN (13:00)
[2020-07-14 13:10] VITALS: BP 127/60
[2020-07-14] MEDS ORDERED: CALC1CAP31 PO (13:32)
[2020-07-14] MEDS ORDERED: CARV25TA PO (13:32)
[2020-07-14] MEDS ORDERED: ATOR1TAB21 PO (13:32)
[2020-07-14] MEDS ORDERED: RENV2TAB PO (13:32)
[2020-07-14] MEDS ORDERED: PANT20TA6 PO (13:32)
[2020-07-14] MEDS ORDERED: ENTR1TAB7 PO (13:32)
[2020-07-14] MEDS ORDERED: DOK1CAP7 PO (13:32)
[2020-07-14] MEDS ORDERED: LEVO250T12 PO (13:35)
--- NOTE | 2020-07-14 14:02 | IPN ---
PROGRESS NOTE DATE: 07/14/2020 SUBJECTIVE: Mr. Flood is seen this morning on his bedside. He is feeling well and denies any dyspnea, chest pain, nausea or vomiting. He has no fevers or chills. The patient is scheduled for transesophageal echocardiogram in view of his persistent leukocytosis. PHYSICAL EXAMINATION: VITAL SIGNS: Temperature 97.8 degrees Fahrenheit, heart rate 82 per minute and respiratory rate 18 per minute. Blood pressure 120/58 mmHg and oxygen saturation 96% on room air. HEENT: Head is atraumatic. NECK: Supple and without JVD or thyroid enlargement. CHEST: Dialysis catheter in left upper chest is intact without any signs of infection. HEART: Heart sounds are regular. LUNGS: Clear to auscultation. ABDOMEN: Soft and nontender and bowel sounds are normal. EXTREMITIES: Without any cyanosis or clubbing. NEUROLOGIC: He is awake, alert, and oriented times three. Today's labs show a WBC count down to 14.9, hemoglobin 9.5 and hematocrit 29.7. Platelets 145. Sodium 138, potassium 4.3, BUN 63 and creatinine 6.98. Calcium level is 8.1. PROBLEMS: 1. End-stage renal disease. The patient is dialysis dependent and will be scheduled for next dialysis tomorrow. He was dialyzed yesterday and his labs are appropriate. 2. Anemia. Anemia has improved and is stable. He remains on weekly dose of Aranesp. His anemia will be managed as an outpatient in dialysis. 3. Leukocytosis probably related to a foot infection and steroids. His leukocytosis seems to be improving now. The patient is scheduled for a transesophageal echocardiogram later today. All his blood cultures have been negative so far. 4. Disposition: From a renal standpoint, the patient can be discharged to home after echocardiogram if he is considered negative. The patient had an outpatient dialysis scheduled for tomorrow at 2:30 p.m. 5. Hypertension. Blood pressure is well controlled on current antihypertensive medications. Important to note that he was not taking any blood pressure medications at home prior to this admission. He will need new prescriptions and I have advised about compliance with medications.
--- NOTE | 2020-07-14 14:42 | DS.PDOC ---
Discharge Summary General Date of Admission Jul 01, 2020 at 21:19 Date of Discharge 07/14/20 Attending Physician: Inez Blackwood MD Discharge Summary HISTORY OF PRESENT ILLNESS: 35-year-old male past medical history of hypertension not taking any medications presents to the emergency department because of 3 day history of left foot discomfort. Patient redness on the dorsal aspect of his left foot 3 days ago and then yesterday he noticed the formation of a black spot between the fourth and fifth digits of his left foot. He denies any foot discharge. Denies any fevers or chills. States that he frequently gets gouty episodes he gets them several times a year over the past several years. He doesn't take any medications for his gout and just tries to adhere to a low red meat diet. In the ED patient was found to be in acute renal failure nephrology was consulted Dr. Erazo recommended renal ultrasound and urinalysis. Patient denies any history of known kidney disease. States he makes normal amounts of urine with no recent changes to his urine volume. Denies any dysuria or changes in urinary frequency or color. He is also found to have a hemoglobin of 7.0 he denies any bleeding or black stools and denies any weakness chest pain palpitations or fatigue. Patient was also found to have an elevated white blood cell count 16. he doesn't have any shortness of breath or sputum production he denies any fevers or chills. Patient was admitted for acute kidney failure, anemia. HOSPITAL COURSE: Patient as treated with IV abx for left fourth toe gangrene/cellulitis foot/s epsis s/p 4th toe amputation by Dr. Bahena (07/07/20). WBC increased due to steroids but later improved markedly with IV abx. Cultures, polymicrobial. He was aggressively treated for acute renal failure (likely not knowing but underlying chronic kidney disease as well) requiring hemodialysis. He had significant nephrotic proteinuria, kidney biopsy showed sclerotic changes of cortex.Dr. Howe (nephrology) followed closely while here. He had anemia likely 2/2 to chronic disease and received 1 unit of PRBC this stay. He received Aranesp and Venofer with dialysis. Secondary hyperparathyroidism was treated with calcitriol. He had shown to have systolic CHF on echo here, EF 25 % with cardiology consulted and making recommendations for meds. There was a questionable vegetation on anterior mitral leaflet seen on echo (later thought to be possibly artifact on echo?), CASIE was done and no endocarditis was seen. Other chronic issues like HTN, gout and PVD was stable. On 07/14/20 after his CASIE, decision was made to discharge with renally dosed levofloxacin x 7 days and close follow up with new PCP, cardiology, nephrology and podiatry. He felt markedly improved and had acute complaints prior to discharge. 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 DISCHARGE MEDICATIONS: Please see below. PHYSICAL EXAM: VS: Please see below GENERAL APPEARANCE: NAD HEENT: no scleral icterus, no JVD, EOMI CARDIOVASCULAR: S1S2 Chest: dialysis catheter in place left LUNGS: CTA ABDOMEN: soft & not tender w palpitation MUSCULOSKELETAL: Left foot wound appears well healed, nonsuppurative, scabbed in areas but tissue appears clearn. No cellulitis or tenderness to palpation. INTEGUMENT: no generalized pallor NEUROLOGICAL: cranial nerve function from 2-12 intact intact, follows commands, speech not dysarthric LABORATORY: Please see below MICROBIOLOGY: Anaerobic Cx: Provotella Anaerobic #1 Anaerobic #2 Aerobic Cx: Strep Group C, Enterobacter Cl. BCx to date: IMAGING: CASIE 07/14/20: prelim report given to me over the phone " No endocarditis" per Dr. Conley (cardiology) Echocardiogram: 1. Study is of good technical quality, underlying sinus rhythm with heart rate around 100 BPM. 2. Mildly dilated, moderately hypertrophy left ventricle with global left ventricular systolic dysfunction and estimated EF around 20% to 25%. At least grade 2 diastolic dysfunction. 3. No aortic valvular disease. 4. Cannot completely rule out the presence of small vegetation on anterior mitral leaflet. Mild mitral insufficiency. 5. Competent tricuspid valve. 6. Elevated central venous pressure. 7. Unable to estimate pulmonary artery pressure. 8. Trivial pericardial effusion. ASSESSMENT: Patient is 35 years old male with past medical history of hypertension, noncompliant to his medications treated this admission for acute kidney injury, anemia, sepsis and uncontrolled hypertension. PLAN: Leukocytosis possibly 2/2 to left fourth toe gangrene/cellulitis of left foot s/p 4th toe amputation (07/07/20) and steroids patient was previously on. Resolved sepsis -WBC further improved to 14 from 21K on Cefepime and Vancomycin. -Cultures above, polymicrobial -See individual plans for treatment below Left fourth toe gangrene/cellulitis of left foot s/p 4th toe amputation (07/07/20) -WBC improving to 14K today from 21K. Afebrile -Aerobic and anaerobic cx above -BCx neg -Dr. Newman- podiatry consulted and patient will need to f/u as o/p, appointment being made -Was treated with vanco, cefepime here -C/w levofloxacin PO x7 days. Acute on chronic kidney disease -Patient had significant nephrotic proteinuria -Kidney biopsy showed sclerotic changes of cortex. -Dialysis catheter placed, to continue with HD MWF normally, this week he will go on 07/15/20 instead of this coming Sunday -Discussed with Dr. Howe who will f/u with him as o/p Anemia 2/2 to renal failure -S/p 1 unit of blood transfusion on 07/05/20 -C/w Continue Aranesp and Venofer as o/p with dialysis Vegetation on anterior mitral leaflet seen on echo- possibly artifact on echo? -When CASIE done: no endocarditis -WBC improving, no murmur -Dr. Conley, cardiology consulted and says no vegetations seen on CASIE today. Official report pending Secondary hyperparathyroidism -C/w Calcitriol. Hypertension -Stable -C/w current meds Systolic CHF -Echo showed -Controlled -C/w cardiology meds -F/u cardiology as o/p Dr. Conley Gout -Stable Peripheral vascular diseases -Arterial studies showed atherosclerotic disease in the extremities -C/w current treatment Obesity -BMI 33.4 complicates care. A1C 5.7% Resolved issues: Hyperkalemia Metabolic acidosis DISPOSITION: Plan is discharge home today with hemodialysis planned for 07/15/20, f/u with Dr. Howe (nephrology) and new PCP appointment. He also has appointments with Dr. Bahena and Dr. Conley's office made. TIME SPENT ON DISCHARGE: Greater than 30 minutes. Vital Signs/I&Os Vital Signs Date Time Temp Pulse Resp B/P (MAP) Pulse Ox O2 Delivery O2 Flow Rate FiO2 07/14/20 13:10 97.0 74 20 127/60 (82) 99 Room Air 07/13/20 07:45 2 I&O- Last 24 Hours up to 6 AM 07/14/20 05:59 Intake Total 1580 ml Output Total 1550 ml Balance 30 ml Laboratory Data Labs 24H Laboratory Tests 2 07/13/20 17:16: Bedside Glucose (Misc Panel) 211H 07/13/20 20:49: Bedside Glucose (Misc Panel) 146H 07/14/20 04:58: Nucleated Red Blood Cells % (auto) 0.0, Anion Gap 13, Glomerular Filtration Rate 9.5L, Calcium Level 8.1L, Total Bilirubin 0.4, Aspartate Amino Transf (AST/SGOT) 20, Alanine Aminotransferase (ALT/SGPT) 16, Alkaline Phosphatase 128H, Total Protein 6.3L, Albumin 2.5L, Albumin/Globulin Ratio 0.7 07/14/20 13:09: Bedside Glucose (Misc Panel) 112H CBC/BMP Laboratory Tests 07/14/20 04:58 FSBS Laboratory Tests Test 07/13/20 17:16 07/13/20 20:49 07/14/20 13:09 Range/Units Bedside Glucose (Misc Panel) 211 146 112 70-105 MG/DL Microbiology Microbiology 07/11/20 Blood Culture - Preliminary, Resulted No Growth after 72 hours. All specime... 07/07/20 Gram Stain - Final, Complete 07/07/20 Wound Culture - Final, Complete Streptococcus Group C Enterobacter Cloacae Complex 07/07/20 Anaerobic Culture - Final, Complete Prevotella [place] Anaerobic Cocci Anaerobic Cocci#2 07/05/20 Blood Culture - Final, Complete NO GROWTH AFTER 5 DAYS 07/05/20 Blood Culture - Final, Complete NO GROWTH AFTER 5 DAYS Discharge Medications Scheduled Atorvastatin Calcium (Atorvastatin Calcium) 20 Mg Tablet, 40 MG PO QHS Calcitriol (Calcitriol) 0.25 Mcg Capsule, 0.25 MCG PO MoWeFr@0900 Carvedilol (Carvedilol) 25 Mg Tablet, 25 MG PO BID Docusate Sodium (Dok) 100 Mg Capsule, 100 MG PO BID Levofloxacin (Levofloxacin) 250 Mg Tablet, 250 MG PO DAILY Pantoprazole Sodium (Pantoprazole Sodium) 20 Mg Tablet., 20 MG PO DAILY Sacubitril/Valsartan (Entresto 49 mg-51 mg Tablet) 1 Each Tablet, 1 TAB PO BID Sevelamer Carbonate (Renvela) 800 Mg Tablet, 800 MG PO WM Allergies Coded Allergies: No Known Drug Allergies (Verified Allergy, Unknown, 07/01/20) Inez Blackwood MD Jul 14, 2020 14:42
[2020-07-14 16:00] VITALS: BP 142/71
--- NOTE | 2020-07-15 09:49 | T-ECHO ---
TRANSESOPHAGEAL ECHO DATE: 07/14/2020 REFERRING PHYSICIAN: Dennise Conley MD. INDICATION: Suspected endocarditis. PROCEDURE: Transesophageal echocardiogram. ANESTHESIOLOGIST: Anesthesiology was provided by Dr. Narendra Briceno and Cristhian Wild CRNA. BRIEF HISTORY: Mr. Flood is a 35-year-old man who presented to [facility] with necrotic toe, and in the process of evaluation, he was found to have severe cardiomyopathy and renal failure that eventually led to dialysis. Based on transthoracic study, there was mild mitral insufficiency, and there was suspicion for potential vegetation on the mitral valve. Even though blood cultures have been consistently negative and he was never febrile, there was persistent prominent leukocytosis with likely embolization to the toe. We felt that the suspicion for endocarditis was quite high. Consequently, I explained the rationale to the patient, and he did sign appropriate consent the morning of the procedure. DESCRIPTION OF PROCEDURE: Procedure was performed in the operating room. Patient presented in fasting condition. After all appropriate monitors were applied and appropriate time out was taken, his posterior pharynx was anesthetized using initially Cetacaine spray and then by use of viscous lidocaine. He was subsequently positioned on his left side, and bite block was placed. After sedation was accomplished as administered by Anesthesia, probe was introduced into esophagus and later stomach without difficulty. After appropriate images were obtained, it was withdrawn. There were no immediate complications and patient tolerated the procedure well. FINDINGS: Left ventricle is dilated and is globally hypokinetic. I estimate ejection fraction approximately 25% consistent with transthoracic echocardiogram. No segmental wall motion abnormalities are appreciated. Right ventricle does not appear grossly dilated, and it appears normally contractile. Both atria appeared grossly normal. Mitral valve has normal structure. There is a minimal prolapse of mid segment of posterior mitral leaflet, but no vegetations are seen. By color Doppler imaging, there is only mild mitral insufficiency. Aortic valve is tricuspid. It has normal mobility. There is a small calcification at the base of the noncoronary cusp but no vegetation is seen. By color Doppler imaging, there is no stenosis or insufficiency of the valve. Tricuspid valve also appears normal. There is no significant stenosis or insufficiency, and no evidence for vegetation. Pulmonic valve also appears structurally intact. Trace insufficiency is seen on color Doppler imaging. Left atrial appendage is narrow but long. It is free of thrombi and has normal flow. There is also normal flow in both left and right-sided pulmonary veins. Atrial septum is intact based on 2D and color Doppler imaging. There is minimal atherosclerosis in the visualized segment of ascending aorta. Aortic arch and thoracic segment of descending aorta were poorly visualized. CONCLUSIONS: 1. Dilated hypokinetic ventricle with estimated EF approximately 20-25%. 2. Minimal posterior mitral leaflet prolapse with resulting mitral insufficiency. 3. Remaining cardiac valves are functional competent. 4. Intact atrial septum. 5. No evidence for left atrial appendage thrombus. 6. Trace pericardial effusion. COMMENT: The study argues against presence of vegetation, and consequently the diagnosis of bacterial endocarditis is very unlikely. Results of the study were communicated to the patient and to Dr. Blackwood. cc: Dr. Jaison FNIN, DO NUÑEZ
== END 2020-07-14 17:28 | disposition home or self-care (01) | DRG 951 ==
LOC: M ED 14:25 → M ED INP 21:19 → M PCU 07-02 17:18
PROVIDERS: ADMIT Family Medicine; ATTEND Internal Medicine
PROC: 30233N1 Transfusion of Nonautologous Red Blood Cells into Peripheral Vein, Percutaneous Approach (ICD-10-PCS; 2020-07-01)
PROC: 05HN33Z Insertion of Infusion Device into Left Internal Jugular Vein, Percutaneous Approach (ICD-10-PCS; 2020-07-05)
PROC: 0TB13ZX Excision of Left Kidney, Percutaneous Approach, Diagnostic (ICD-10-PCS; 2020-07-06)
PROC: 0Y6W0Z0 Detachment at Left 4th Toe, Complete, Open Approach (ICD-10-PCS; principal; 2020-07-07 10:00)
PROC: 5A1D70Z Performance of Urinary Filtration, Intermittent, Less than 6 Hours Per Day (ICD-10-PCS; 2020-07-10)
PROC: 02HV33Z Insertion of Infusion Device into Superior Vena Cava, Percutaneous Approach (ICD-10-PCS; 2020-07-13)
PROC: 0JH63XZ Insertion of Tunneled Vascular Access Device into Chest Subcutaneous Tissue and Fascia, Percutaneous Approach (ICD-10-PCS; 2020-07-13)
DX: N17.9 Acute kidney failure, unspecified (principal); A41.9 Sepsis, unspecified organism; E87.2 Acidosis; I50.20 Unspecified systolic (congestive) heart failure; L03.116 Cellulitis of left lower limb; E87.5 Hyperkalemia; I13.10 Hypertensive heart and chronic kidney disease without heart failure, with stage 1 through stage 4 chronic kidney disease, or unspecified chronic kidney disease; N39.0 Urinary tract infection, site not specified; E66.9 Obesity, unspecified; Z68.33 Body mass index [BMI] 33.0-33.9, adult; D63.1 Anemia in chronic kidney disease; I70.245 Atherosclerosis of native arteries of left leg with ulceration of other part of foot; Z91.14 Patient's other noncompliance with medication regimen; Z99.2 Dependence on renal dialysis; M10.30 Gout due to renal impairment, unspecified site; N25.81 Secondary hyperparathyroidism of renal origin

== ENCOUNTER → 2020-08-04 | Outpatient (CLI) | payer BC ==
[~2020-08-04] MED LIST changes: +ACETAMINOPHEN 325 MG TAB As Ordered ONE; +ATOR1TAB21 PO; +CALC1CAP31 PO; +CARV25TA PO; +DOK1CAP7 PO; +ENTR1TAB7 PO; +ISOVUE-300 61% 50ML VIAL As Ordered ONE; +LEVO250T12 PO; +LIDOCAINE 1% MDV 20ML VIAL As Ordered ONE; +MIDAZOLAM INJ 2MG/2ML VIAL (J2250 PER 1MG) As Ordered ONE; +PANT20TA6 PO; +RENV2TAB PO; +fentaNYL 100 MCG/2 ML INJECTION (J3010) As Ordered ONE
--- NOTE | 2020-08-04 09:49 | ROOPDOC ---
[facility] Report Of Operation Report of Operation DATE OF PROCEDURE: 08/04/20 PREPROCEDURE DIAGNOSES: Atherosclerosis of the [place] arteries with nonhealing toe amputation left foot POSTPROCEDURE DIAGNOSES: Same PROCEDURE: 1. Ultrasound-guided access right common femoral artery 2. Aortoiliofemoral arteriogram 3. Selection left common femoral and superficial femoral artery and left lower extremity arteriogram 4. Selection left popliteal artery and tibial runoff 5. Selection distal left peroneal artery and arteriogram 6. Cross chronic total occlusion and angioplasty left peroneal artery with 2.5 x 220 starling balloon 7. Angioplasty left posterior tibial artery and medial plantar artery with 2.5 x 220 starling balloon 8. Angioplasty left anterior tibial artery with 2.5 x 220 starling balloon 9. Completion arteriograms 10. Mynx closure right common femoral artery SURGEON: Karolina Mcmanus MD ANESTHESIA: Local anesthesia 9 mL lidocaine. Moderate intravenous conscious sedation was supervised by Dr. Mcmanus. The patient was independently monitored by registered nurse under the department of radiology using automated blood pressure, EKG, and pulse oximetry. The detailed sedation record is permanently stored in the hospital information system. The following is a brief sedation record: Start time 08:07, stop time 09:06, Versed 2.5 mg IV, fentanyl 125 g IV, heparin 4000 units IV. INDICATION FOR PROCEDURE: This is a very pleasant 35-year-old patient with end- stage renal disease and atherosclerosis of the [place] arteries with left toe amputation site that is not healing well. Risks benefits and alternatives to an arteriogram potential arterial intervention were explained to the patient he is agreeable to proceed. Informed consent was obtained. INTERPRETATION: 1. The distal aorta, common iliac arteries bilaterally, hypogastric arteries bilaterally, and external iliac arteries bilaterally are all widely patent although calcified. The patient has a slightly high and narrow bifurcation of his aorta. There is good runoff into the femoral vessels bilaterally. 2. The left common femoral artery, profunda, and SFA are all widely patent but calcified. No stenoses noted. 3. There is significant tibial disease on the left. The main runoff to the foot is through the anterior tibial artery and posterior tibial artery, although both are diminutive in size heavily calcified and intermittently very stenotic. They do both cross into the pedal vessels, but with limited outflow at the distal foot due to but I suspect to be heavy microvascular disease in the pedal vessels. The peroneal artery on the left occluded serous origin and does not reconstitute. 4. After crossing the occlusion in the peroneal artery to the ankle, we did not have any outflow, but no extravasation either. We backed upper catheter to the distal calf, and we then had collateral outflow from that point. After jeb oplasty to that point, there was a marked improvement inflow through the peroneal artery to the distal calf with outflow through the collateral vessels. No extravasation embolization or dissection noted. 5. After initial angioplasty through the posterior tibial artery into the medial plantar artery, there is still significant residual stenosis at the ankle and the mid calf. A second three-minute inflation was performed at higher pressure, then lower pressure for an additional minute, and following this there was a marked improvement inflow through the left posterior tibial artery to the medial plantar artery, but still somewhat microvascular outflow. The microvascular outflow appears to be very diminutive in size and diseased. However, there is no lagging in contrast progression, so the outflow may be a bit better than we visualized. No extravasation embolization or dissection was noted. 6. After initial angioplasty through the anterior tibial artery to the ankle, there is a marked improvement inflow with only one focal area of residual stenosis, 25%, but did not respond to repeat angioplasty. This is a heavily calcified bulky plaque area, but it is markedly improved. There is rapid flow through to the dorsal pedis artery which is diminutive in size and quickly disperses into multiple fine collaterals at the dorsal foot and pedal circulation that is very diminutive in size. No extravasation embolization or dissection was noted. REPORT OF OPERATION: Patient was brought to the angiographic suite in stable his bilateral groins were prepped and draped in a sterile fashion. A timeout was performed. Sedation was administered without complication. Local anesthesia was administered to the right groin skin and subcutaneous tissue. A microneedle was used to access the right common femoral artery under ultrasound guidance. A wire was passed through this access needle was removed. A 4 [place] sheath was placed and flushed with saline. Glidewire and flushing catheter were advanced into the distal aorta under fluoroscopic guidance. Aortoiliofemoral arteriograms were performed, please interpretation above. We then went up and over the bifurcation with the Glidewire in the glide catheter. This was a bit challenging due to the narrow bifurcation of the aorta. We selected the left common femoral artery and superficial femoral artery. Left lower extremity arteriograms were performed, please interpretation above. We then exchange the wire through the catheter for a stiff Amplatz wire and advanced this to the popliteal artery and the left. Over the stiff catheter was exchanged the sheath for a 6 x 90 cm destination sheath. This was flushed with saline. Heparin with given by our nurses and allowed to circulate. We advanced a 018 Glidewire advantage into the peroneal artery. It took some time, but we were able to cross to the distal ankle. We advanced a 2.5 x 2 20 starling balloon over the wire. We then removed the wire and a quick arteriogram confirmed we did not have any outflow at the ankle but no extravasation either. We then retracted the balloon to the distal calf, and an arteriogram confirmed there was enough collateral circulation to that point to allow outflow. We then angioplastied for three-minute inflation and following this was a marked improvement through the distal calf in the peroneal artery. Next, we directed the wire into the posterior tibial artery and carefully crossed into the medial plantar artery. Angioplasty was done along the length of the vessel for three-minute inflations, and following this there was still significant residual stenosis in the mid calf and at the ankle. Second three- minute inflation was done in this area. Following this, there is a marked improvement inflow in the area of angioplasty, but still very diminutive pedal vessels with heavy calcified disease noted in the microcirculation of the foot. However, there is no lagging contrast outflow and it seemed to clear quickly which may indicate that this microcirculation is better than what we visualized. We then directed the wire into the anterior tibial artery. We crossed down to the distal ankle. Angioplasty was done along the length of the anterior tibial artery and it was difficult to completely open one area in the mid calf despite repeated angioplasty. There is a bulky piece of heavy plaque in the area, and despite our best efforts are still 25% stenosis post repeated angioplasty. However, following all tibial angioplasty, there is now 3 vessel runoff to the distal calf, 2 vessel runoff to the foot, and the runoff is rapid. Although we do see very diminutive pedal vessels and microcirculation disease, there is no lagging contrast to suggest that this outflow is not adequate. Hopefully, with improved inflow, there will be a notable improvement and healing for the patient. However, his distal vascular disease is quite profound for someone his age. We exchanged the sheath over an O35 Glidewire for short 6 [place] sheath and flushed the sheath with saline. A Mynx closure device was deployed with good hemostasis. Pressure was held and sterile dressings were applied. The patient was taken to recovery in stable condition. He tolerated the procedure and the sedation well. ESTIMATED BLOOD LOSS: Approximately 4 mL. COMPLICATIONS: None. PLAN: Ok to resume preop diet and medications. Continue local wound care left foot per Dr Bahena. Patient is on a statin, but needs to also take an aspirin EC 81mg PO daily. No strenuous exercise or lifting greater than 5 pounds for 2 days. We will see the patient back in a week to check his groin access site and his perfusion. The patient says he is doing well on dialysis since having his PermCath placed. I asked him if he had a permanent need for dialysis and he said yes. He has already had a vein mapping, so I took a look at that today. On the left, his cephalic vein was not visualized in the forearm or the upper arm, but he has suitable basilic vein measuring 6.1 mm, 3.1 mm in the upper arm and 3.7 mm at the median cubital. There is triphasic flow in the brachial artery, but all the upper extremity vessels are calcified. On the right, the patient hasn't option for a brachiobasilic or brachial cephalic vessel, and the basilic vein measures 6.6 mm, 4 mm in the upper arm, and 4.4 mm at the median cubital. The cephalic vein on the right measures 3.5 mm 3.1 mm in the upper arm and 4.4 mm at the median cubital. Both of these are suitable for fistula creation. He does have a suitable cephalic vein I believe in the forearm for Cheo fistula, but his radial artery is only 2 mm and heavily calcified, and I think this will be very problematic for him from an inflow standpoint on a Cheo fistula as well as an outflow standpoint with perfusion to the hand. The microcirculation at the wrist mimics what we see in the tibial vessels on the left lower extremity: Heavy calcification and diminutive vessels. Therefore, I think up brachiocephalic or brachiobasilic AV fistula would be best instead of the Cheo on the right. We will discuss options with the patient in clinic. We appreciate the opportunity to per despite the care of this patient. KAROLINA MCMANUS MD Aug 04, 2020 09:49
[2020-08-04 13:00] VITALS: BP 141/77
== END ==
LOC: M IRPRO 06:29
PROVIDERS: ATTEND Surgery Vascular Surgery
DX: I70.245 Atherosclerosis of native arteries of left leg with ulceration of other part of foot (principal); I70.92 Chronic total occlusion of artery of the extremities; T87.89 Other complications of amputation stump; I12.0 Hypertensive chronic kidney disease with stage 5 chronic kidney disease or end stage renal disease; N18.6 End stage renal disease; Z79.899 Other long term (current) drug therapy; Z99.2 Dependence on renal dialysis
CPT/HCPCS: 37228; 37232; 75630; 75774; 99152; 99153; C1725; C1729; C1760; C1769; C1887; C1894; J1644; J2250; J3010; Q9967

== ENCOUNTER → 2020-08-26 | Outpatient (CLI) | payer BC ==
[~2020-08-26] MED LIST changes: -ACETAMINOPHEN 325 MG TAB As Ordered ONE; +ATOR40TA75 PO; -ISOVUE-300 61% 50ML VIAL As Ordered ONE; -LIDOCAINE 1% MDV 20ML VIAL As Ordered ONE; -MIDAZOLAM INJ 2MG/2ML VIAL (J2250 PER 1MG) As Ordered ONE; +MM S100C PO; -fentaNYL 100 MCG/2 ML INJECTION (J3010) As Ordered ONE
[2020-08-26 12:53] LABS: BASO # 0.1 10^3/uL (0.0-0.2); BASO % 0.5 % (0.0-1.0); EOS # 0.2 10^3/uL (0.0-0.5); EOS % 1.2 % (0.0-3.0); HEMATOCRIT 26.1 % (42.0-52.0); HEMOGLOBIN 8.6 g/dl (13.5-17.5); LYMPH # 1.6 10^3/uL (1.5-5.0); LYMPH % 9.7 % (24.0-44.0); MEAN CORPUSCULAR HEMOGLOBIN 29.6 pg (27.0-33.0); MEAN CORPUSCULAR VOLUME 89.7 fl (80.0-96.0); MONO # 1.1 10^3/uL (0.0-0.8); MONO % 6.8 % (0.0-5.0); NEUTROPHILS # 13.2 10^3/uL (1.5-8.5); NEUTROPHILS % 81.3 % (36.0-66.0); PLATELET COUNT, AUTOMATED 350 10^3/uL (150-450); RED BLOOD COUNT 2.91 10^6/uL (4.30-6.10); WHITE BLOOD COUNT 16.3 10^3/uL (4.0-10.0)
[2020-08-26 13:05] LABS: INR 1.13; PROTHROMBIN TIME 14.8 SECONDS (12.5-14.3)
[2020-08-26 13:17] LABS: ERYTHROCYTE SEDIMENTATION RATE 129 mm/hr (0-15)
[2020-08-26 13:18] LABS: ALBUMIN 2.9 GM/DL (3.2-5.2); ALT/SGPT 29 U/L (12-78); BILIRUBIN,TOTAL 0.3 MG/DL (0.2-1.0); BLOOD UREA NITROGEN 26 MG/DL (7-18); CALCIUM LEVEL 10.1 MG/DL (8.5-10.1); CARBON DIOXIDE LEVEL 29 MEQ/L (21-32); CHLORIDE LEVEL 97 MEQ/L (98-107); CREATININE FOR GFR 6.08 MG/DL (0.70-1.30); GLOMERULAR FILTRATION RATE 11.1 (>60); GLUCOSE, FASTING 135 MG/DL (70-100); POTASSIUM SERUM 3.6 MEQ/L (3.5-5.1); RHEUMATOID FACTOR QUANT < 10.0 IU/ML (<15.0); SODIUM LEVEL 135 MEQ/L (136-145); TOTAL PROTEIN 8.7 GM/DL (6.4-8.2)
[2020-08-26 13:28] LABS: HEPATITIS B SURFACE ANTIBODY NEGATIVE (POSITIVE)
[2020-08-26 14:11] LABS: HEPATITIS B CORE ANTIBODY IGM NEGATIVE (NEGATIVE)
[2020-08-26 14:18] LABS: HEPATITIS B SURFACE ANTIGEN POSITIVE (NEGATIVE)
[2020-08-31 14:13] LABS: ANTINUCLEAR ANTIBODIES DIRECT Negative (Negative); PROTEIN C ANTIGEN 95 % (60-150); PROTEIN S ANTIGEN FREE 117 % (57-157); PROTEIN S ANTIGEN TOTAL 97 % (60-150)
== END ==
LOC: M LAB 11:53
PROVIDERS: ATTEND Physician Assistant
DX: Z79.899 Other long term (current) drug therapy (principal); E08.621 Diabetes mellitus due to underlying condition with foot ulcer

== ENCOUNTER → 2020-08-27 | Outpatient (REF) | payer BC ==
[2020-08-27 18:34] LABS: APPEARANCE, URINE HAZY (CLEAR); BACTERIA, URINE AUTO NEGATIVE (NEGATIVE); BILIRUBIN, URINE AUTO NEGATIVE (NEGATIVE); BLOOD, URINE BLOOD 2+ (NEGATIVE); COLOR, URINE YELLOW (YELLOW); GLUCOSE, URINE (UA) AUTO NEGATIVE (NEGATIVE); KETONE, URINE AUTO NEGATIVE (NEGATIVE); LEUKOCYTE ESTERASE, URINE AUTO 3+ (NEGATIVE); NITRITE, URINE AUTO NEGATIVE (NEGATIVE); PROTEIN, URINE AUTO 3+ mg/dL (NEGATIVE); RBC, URINE AUTO 12 /HPF (0-3); SQUAMOUS EPITHELIAL CELL UR AU 0 /HPF (0-6); UROBILINOGEN, URINE AUTO 0.2 mg/dL (0.0-2.0); WBC, URINE AUTO 104 /HPF (0-3)
== END ==
LOC: M LAB REF 18:21
PROVIDERS: ATTEND Physician Assistant
DX: E11.9 Type 2 diabetes mellitus without complications (principal)

== ENCOUNTER 2020-08-30 07:59 | Inpatient (IN) | payer BC ==
[~2020-08-30] VITALS: Ht 182.9 cm; Wt 93.4 kg
[2020-08-30] VITALS (14 sets, daily range): BP systolic 118–155; BP diastolic 70–97
[~2020-08-30 07:59] MED LIST changes: -ATOR40TA75 PO; -MM S100C PO
--- OUTSIDE RECORDS SUMMARY | 2020-08-30 08:11 | CCD | Continuity of Care Document ---
Author Author Will MONAE DPM Organization Unknown Address [address] [place] [address], [address] [place] [address] Phone [phone] Care Team Providers Care Electrician [employer] Name Role Phone Gold Benedict MD AUTM [phone] Problems Active Problems Provider Date Acute osteomyelitis of ankle and/or foot THANH Corea Onset: 07/20/2020 Pain in limb Sundar Monae DPM Onset: 07/20/2020 Peripheral vascular disease Sundar Monae DPM Onset: 07/17 Social History Type Date Description Comments Sex Unknown ETOH Use Denies alcohol use Tobacco Use Start: Unknown Patient has never smoked Allergies, Adverse Reactions, Alerts Description No Known Drug Allergies Medications Description No Active Medications Immunizations Description No Information Available Vital Signs Description No Information Available Results Description No Information Available Procedures Date Code Description Status 07/07/2020 62453 Amputation Toe MP JT Completed Medical Devices Description No Information Available Encounters Type Date Location Provider Dx Diagnosis Office Visit 07/23/2020 10:45a [facility] Sundar Monae DPM Z48.89 Encounter for other specified surgical aftercare Assessments Date Code Description Provider 07/23/2020 Z48.89 Encounter for other specified vanegas rgical aftercare Sundar Monae DPM 07/12/2020 M86.172 Other acute osteomyelitis, left ankle and foot Sundar Monae DPM 07/07/2020 M86.172 Other acute osteomyelitis, left ankle and foot Sundar Monae DPM 07/04/2020 M86.172 Other acute osteomyelitis, left ankle and foot Sundar Monae DPM 07/04/2020 M79.675 Pain in left toe(s) Sundar genao DPM 07/02/2020 M86.172 Other acute osteomyelitis, left ankle and foot Sundar Monae DPM 07/02/2020 M79.675 Pain in left toe(s) Sundar genao DPM Plan of Treatment Future Appointment(s):* 08/20/2020 10:00 am - Sundar Monae DPM at [facility] Functional Status Description No Information Available Mental Status Description No Information Available Referrals Refer to Dr Reason for Referral Status Appt Date Sundar Monae DPM Created [address] [facility] [address] [place] [address] [phone]
--- OUTSIDE RECORDS SUMMARY | 2020-08-30 08:11 | CCD ---
Author [facility] Organization [facility] Address Unknown Phone Unavailable Care Team Providers Care Audit Director Name Role Phone Dean Medel Unavailable PROBLEMS Type Condition ICD9-CM Code [id number] Code Onset Dates Condition S tatus SNOMED Code Notes Problem Systolic congestive heart failure, unspecified HF chronici ty I50.20 Active 41075683 Problem Dilated cardiomyopathy I42.0 Active 555695798 Problem Anemia in chronic kidney disease D63.1 Active 797110452 Problem Essential hypertension I10 Active 53618349 Problem Dependence on renal dialysis Z99.2 Active 105 841947 Problem Secondary hyperparathyroidism of renal origin N25. 81 Active 17540512079799326 Problem End stage renal disease N18.6 Active 58645549 ALLERGIES No Known Allergies ENCOUNTERS from 1983 to 2020-08-11 Encounter Location Date Provider Diagnosis [facility] [address] [place] [address] Jul Dean Medel IMMUNIZATIONS No Information SOCIAL HISTORY Tobacco Use: Social History Observation Description Date Details (start date - stop date) Never Smoker Sex Assigned At : Social History Observation Description Sex Assigned At Unknown Education: Question Answer Notes Level of Education: High School Audit Question Answer Notes Total Score: 0 Interpretation: Alcohol Education Language: Question Answer Notes Languages spoken: Lebanese Buddhist: Question Answer Notes Buddhist 33 None Sexual Hx: Question Answer Notes Had sex in the last 12 months (vaginal, oral, or anal)? Yes Have you ever had an STD? No with Women only Use protection? Yes How often? All of the time Drug and Alcohol Question Answer Notes Total Score: 0 Interpretation: No problems reported Alcohol Screening: Question Answer Notes Did you have a drink containing alcohol in the past year? No Points 0 Interpretation Negative Tobacco Use: Question Answer Notes Are you a: never smoker Additional Findings: Tobacco User Chews loose leaf tobacco REASON FOR REFERRAL No Information VITAL SIGNS No information MEDICATIONS Medication SIG (Take, Route, Frequency, Duration) Notes Start Da te End Date Status Docusate Sodium 100 MG 1 capsule as needed Orally Once a day for 30 day(s) Active Atorvastatin Calcium 40 MG 1 tablet Orally Once a day for 30 day(s) Active Entresto 49-51 MG 1 tablet Orally Twice a day Active Carvedilol 25 MG 1 tablet with food Orally Twice a day Active Levofloxacin 250 MG 2 tablets Orally Once a day for 10 day(s) Not-Taking Calcitriol 0.25 MCG 1 capsule Orally Once a day Active Renvela 800 MG 1 tablet with meals Orally Three times a day Active Pantoprazole Sodium 20 MG 1 tablet Orally Once a day for 30 day(s) Active ProAir HFA 108 (90 Base) MCG/ACT 2 puffs as needed Inh alation every 4-6 hrs for 7 days Jul, Not-Taking PROCEDURES No Information RESULTS No Results REASON FOR VISIT Schedule inital Apt. MEDICAL (GENERAL) HISTORY Type Description Date Surgical History toe amputation 4th toe left foot 0 Surgical History right knee Hospitalization History CHF/ renal failure 07/01-07/14/20 Goals Section No Information Health Concerns No Information MEDICAL EQUIPMENT No Information MENTAL STATUS No Information FUNCTIONAL STATUS No Information ASSESSMENTS No Information PLAN OF TREATMENT Medication Medication Name Sig Start Date Stop Date Calcitriol 0.25 MCG 1 capsule Orally Once a day Renvela 800 MG 1 tablet with meals Orally Three times a day Entresto 49-51 MG 1 tablet Orally Twice a day Carvedilol 25 MG 1 tablet with food Orally Twice a day Next Appt Details Provider Name:Yesenia Dowell, 08-24 08:00:00 AM, [address] [place], [address], Provider Name:Rosi Rios, 07:15:00 AM, [address] [place], [address], Insurance Providers Payer Name Payer Address Payer Phone Insured Name Patient Relati onship to Insured Coverage Start Date Coverage End Date [facility] [id number] [id number] ALLISON FOX self
--- OUTSIDE RECORDS SUMMARY | 2020-08-30 08:11 | CCD | Continuity of Care Document ---
Author Author Will MCMANUS MD Organization Unknown Address [address] [facility], [address] [place] [address] Phone [phone] Care Team Providers Care Financial Services Director Name Role Phone AUTM Unavailable Bhupinder Valdez M.D. AUTM Rosi Rios AUTM [phone] Problems Active Problems Provider Date Essential hypertension HANNY Tellez Onset: 07/29/2020 Social History Type Date Description Comments Sex Unknown ETOH Use Denies alcohol use Tobacco Use Start: Unknown Denies Smoking Recreational Drug Use Denies Drug Use Smoking Status Reviewed: 08/03/20 Denies Smoking Allergies, Adverse Reactions, Alerts Description No Known Drug Allergies Medications Active Medications SIG Qnty Indications Ordering Provide r Date Sevelamer Carbonate 800mg Tablets Take 1 Tablet By Mouth Three Times Daily With Meals Unk nown Atorvastatin Calcium 20mg Tablets Take 2 Tablets By Mouth AT Bedtime Unknown Calcitriol 0.25mcg Capsules Take 1 Capsule By Mouth On Sunday And Sunday AT 9Am U nknown Carvedilol 25mg Tablets Take 1 Tablet By Mouth Twice Daily Unknown Entresto 49-51mg Tablets Take 1 Tablet By Mouth Twice Daily Unknown Pantoprazole Sodium 20mg Tablets D R Take 1 Tablet By Mouth Once Daily Unknown Immunizations Description No Information Available Vital Signs Date Vital Result Comment 08/12/2020 11:54am BP Systolic 120 mmHg BP Diastolic 60 mmHg Height 72 inches 6'0" Weight 227.00 lb BMI (Body Mass Index) 30.8 kg/m2 [place] Body Weight 178 lb Weight 102.967 kg BSA (Body Surface Area) 2.25 m2 08/03/2020 9:51am BP Systolic 104 mmHg BP Diastolic 72 mmHg Height 72 inches 6'0" Weight 231.38 lb BMI (Body Mass Index) 31.4 kg/m2 [place] Body Weight 178 lb Weight 104.952 kg BSA (Body Surface Area) 2.27 m2 Results Description No Information Available Procedures Date Code Description Status 07/13/2020 68733 Ultrasound Guidance For Vascular Access Requiring Ultrasound Eval Completed 07/13/2020 78961 Insertion Of [place] d Centrally Inserted Central Venous Catheter Completed 07/05/2020 31749 Ultrasound Guidance For Vascular Access Requiring Ultrasound Eval Completed 07/05/2020 13353 Insertion Of Non-Shady neled Centrally Inserted Central Venous Amparo Completed Medical Devices Description No Information Available Encounters Type Date Location Provider Dx Diagnosis Office Visit 08/03/2020 9:45a [facility] HANNY Chery N18.6 End stage renal disease Z99.2 Dependence on renal dialysis I70.245 [facility] [place] arteries of le ft leg w ulceration oth prt foot Assessments Date Code Description Provider 08/03/2020 N18.6 End stage renal disease HANNY Villagomez 08/03/2020 Z99.2 Dependence on renal dialysis HANNY Jones 08/03/2020 I70.245 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 Plan of Treatment 08/03/2020 - HANNY Tellez* N18.6 End stage renal disease * Z99.2 Dependence on renal dialysis * I70.245 Atherosclerosis of [place] arteries of left leg with ulceration of other part of foot* New Xrays:* Angiogram Extremity, Unilateral, Scheduled: 08/04/20 Functional Status Description No Information Available Mental Status Description No Information Available Referrals Refer to Reason for Referral Status Appt Date Renae Mcmanus MD AMPUTATION OF 4TH LEFT TOE Scheduled 08/03/2020 [address] [facility], [address] [place] [address] [phone]
--- OUTSIDE RECORDS SUMMARY | 2020-08-30 08:11 | CCD | Continuity of Care Document ---
Author Author Will GILMORE Organization Unknown Address [address] [facility], [address] [place] [address] Phone [phone] Care Team Providers Care Senior Cytogenetics Laboratory Director Name Role Phone AUTM Unavailable Bhupinder Valdez M.D. AUTM Rosi Rios AUTM Problems Active Problems Provider Date Essential hypertension [...] Unk nown Atorvastatin Calcium 20mg Tablets Take 1/2 Tablet By Mouth AT Bedtime Unknown Calcitriol 0.25mcg [...] Available Vital Signs Date Vital Result Comment 08/26/2020 10:42am BP Systolic 116 mmHg BP Diastolic 81 mmHg Height 72 inches 6'0" Weight 221.00 lb BMI (Body Mass Index) 30.0 kg/m2 [place] Body Weight 178 lb Weight 100.246 kg BSA (Body Surface Area) 2.22 m2 08/12/2020 11:54am BP Systolic 120 mmHg BP Diastolic 60 mmHg Height 72 inches 6'0" Weight 227.00 lb BMI (Body Mass Index) 30.8 kg/m2 [place] Body Weight 178 lb Weight 102.967 kg BSA (Body Surface Area) 2.25 m2 Results Description No Information Available Procedures Date Code Description Status 08/04/2020 25657 Moderate Sedation Se rvices; Same Phys Intl 15 Mins; PT >= 5 Years Completed 08/04/2020 05146 Revascularization,Endovascular W / Transluminal Angioplasty Completed 08/04/2020 81829 Revascularization,Endovascular W / Transluminal Angioplasty Completed 08/04/2020 00533 Revascularization,Endovascular W /Transluminal Angioplasty Completed 07/13/2020 23296 Ultrasound Guidance For Vascular Access Requiring Ultrasound Eval Completed 07/13/2020 44382 Insertion Of [place] d Centrally Inserted Central Venous Catheter Completed 07/05/2020 66240 Ultrasound Guidance For Vascular Access Requiring Ultrasound Eval Completed 07/05/2020 19245 Insertion Of Non-Shady neled Centrally Inserted Central Venous Amparo Completed Medical Devices Description No Information Available Encounters Type Date Location Provider Dx Diagnosis Office Visit 08/12/2020 11:45a [facility] Renae greene MD N18.6 End stage renal disease Z99.2 Dependence on renal dialysis I70.245 [place] [place] arteries of le ft leg w ulceration oth prt foot Office Visit 08/03/2020 9:45a [facility] HANNY Chery N18.6 End stage renal disease Z99.2 Dependence on renal dialysis I70.245 [place]cl [place] arteries of le ft leg w ulceration oth prt foot Assessments Date Code Description Provider 08/12/2020 N18.6 End stage renal disease Renae kathleen MD 08/12/2020 Z99.2 Dependence on renal dialysis Demond Mcmanus MD 08/12/2020 I70.245 Atherosclerosis of n ative arteries of left leg with ulceration of other part of foot Renae Mcmanus MD 08/04/2020 I70.245 Atherosclerosis of n ative arteries of left leg with ulceration of other part of foot Renae Mcmanus MD 08/03/2020 N18.6 End stage renal disease HANNY Villagomez 08/03/2020 Z99.2 Dependence on renal dialysis HANNY Jones 08/03/2020 I70.245 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 Plan of Treatment Future Appointment(s):* 09/08/2020 12:00 pm - Renae Mcmanus MD at [facility] * 09/20/2020 9:15 am - HANNY Tellez at [facility] Functional Status Description No Information Available Mental Status Description No Information Available Referrals Refer to Reason for Referral Status Appt Date Renae Mcmanus MD AMPUTATION OF 4TH LEFT TOE Scheduled 08/03/2020 [address] [facility], [address] [place] [address] [phone]
--- OUTSIDE RECORDS SUMMARY | 2020-08-30 08:11 | CCD ---
Author Author [facility] Organization [facility] Address Unknown Phone Unavailable Care Team Providers Care Director Clinical Research Name Role Phone Rosi Rios Unavailable PROBLEMS Type Condition ICD9-CM Code OUT60-NU Code Onset Dates Condition S tatus SNOMED Code Notes Problem Systolic congestive heart failure, unspecified HF chronici ty I50.20 Active 63091072 Problem Dilated cardiomyopathy I42.0 Active 623851249 Problem Anemia in chronic kidney disease D63.1 Active 863816956 Problem Essential hypertension I10 Active 16626672 Problem Dependence on renal dialysis Z99.2 Active 105 259288 Problem Secondary hyperparathyroidism of renal origin N25. 81 Active 36358487459071620 Problem End stage renal disease N18.6 Active 54427484 ALLERGIES No Known Allergies ENCOUNTERS from 1983 to 2020-08-12 Encounter Location Date Provider Diagnosis [facility] [address] [place] [address], Rosi Gabriel Essential hypertension I10 ; Secondary h yperparathyroidism of renal origin N25.81 and End stage renal disease N18.6 IMMUNIZATIONS No Information SOCIAL HISTORY Tobacco Use: Social History Observation Description Date Details (start date - stop date) Never Smoker Sex Assigned At : Social History Observation Description Sex Assigned At Unknown Education: Question Answer Notes Level of Education: High School Audit Question Answer Notes Total Score: 0 Interpretation: Alcohol Education Language: Question Answer Notes Languages spoken: Bulgarian Orthodox: Question Answer Notes Orthodox 33 None Sexual Hx: Question Answer Notes [...] as needed Orally Once a day for 90 day(s) Active Atorvastatin Calcium 40 MG 1 tablet Orally Once a day for 90 day(s) Active Levofloxacin 250 MG 2 tablets Orally Once a day for 10 day(s) Not-Taking ProAir HFA 108 (90 Base) MCG/ACT 2 puffs as needed Inh alation every 4-6 hrs for 7 days Jul, Not-Taking Carvedilol 25 MG 1 tablet with food Orally Twice a day for 90 day(s) Active Pantoprazole Sodium 20 MG 1 tablet Orally Once a day for 90 day(s) Active Entresto 49-51 MG 1 tablet Orally Twice a day for 90 day(s) Active Renvela 800 MG 1 tablet with meals Orally Three times a day for 90 da y(s) Active Calcitriol 0.25 MCG 1 capsule Orally Once a day for 90 day(s) Active PROCEDURES No Information RESULTS No Results REASON FOR VISIT Refill MEDICAL (GENERAL) HISTORY Type Description Date Surgical History toe amputation 4th toe left foot 0 Surgical History right knee Hospitalization History CHF/ renal failure 07/01-07/14/20 Goals Section No Information Health Concerns No Information MEDICAL EQUIPMENT No Information MENTAL STATUS No Information FUNCTIONAL STATUS No Information ASSESSMENTS Encounter Date Diagnosis Assessment Notes Treatment Notes Treatm ent Clinical Notes Jul, Essential hypertension (ICD-10 - I10) Jul, Secondary hyperparathyroidism of renal origin (I CD-10 - N25.81) Jul, End stage renal disease (ICD-10 - N18.6) PLAN OF TREATMENT Medication Medication Name Sig Start Date Stop Date Docusate Sodium 100 MG 1 capsule as needed Orally Once a day for 90 day(s) Entresto 49-51 MG 1 tablet Orally Twice a day for 90 day(s) Renvela 800 MG 1 tablet with meals Orally Three times a day for 90 day(s) Pantoprazole Sodium 20 MG 1 tablet Orally Once a day for 90 day( s) Carvedilol 25 MG 1 tablet with food Orally Twice a day for 90 da y(s) Calcitriol 0.25 MCG 1 capsule Orally Once a day for 90 day(s) Atorvastatin Calcium 40 MG 1 tablet Orally Once a day for 90 day (s) Next Appt Details Provider Name:Yesenia Christian Magalys, 08-24 08:00:00 AM, [address] [place], [address], Provider Name:Rosi Rios, 07:15:00 AM, [address] [place], [address], Insurance Providers Payer Name Payer Address Payer Phone Insured Name Patient Relati onship to Insured Coverage Start Date Coverage End Date [employer] PPO [id number] [address] ALLISON FOX self
--- OUTSIDE RECORDS SUMMARY | 2020-08-30 08:11 | CCD | Continuity of Care Document ---
Author Author Will GILMORE Organization Unknown Address [address] [facility], [address] [place] [address] Phone [phone] Care Team Providers Care Edi Architect Name Role Phone AUTM Unavailable Bhupinder Valdez M.D. AUTM [phone] Rosi Rios AUTM Problems Active Problems Provider [...] Available Vital Signs Date Vital Result Comment 08/03/2020 9:51am BP Systolic 104 mmHg BP Diastolic 72 mmHg Height 72 inches 6'0" Weight 231.38 lb BMI (Body Mass Index) 31.4 kg/m2 [place] Body Weight 178 lb Weight 104.952 kg BSA (Body Surface Area) 2.27 m2 Results Description No Information Available Procedures Date Code Description Status 07/13/2020 49925 Ultrasound Guidance For Vascular Access Requiring Ultrasound Eval Completed 07/13/2020 25725 Insertion Of [place] d Centrally Inserted Central Venous Catheter Completed 07/05/2020 57566 Ultrasound Guidance For Vascular Access Requiring Ultrasound Eval Completed 07/05/2020 67305 Insertion Of Non-Shady neled Centrally Inserted Central Venous Amparo Completed Medical Devices Description No Information Available Encounters Description No Information Available Assessments Date Code Description Provider 08/03/2020 N18.6 End stage renal disease HANNY Villagomez 08/03/2020 Z99.2 Dependence on renal dialysis HANNY Jones 08/03/2020 I70.245 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 Plan of Treatment Future Appointment(s):* 08/12/2020 10:45 am - HANNY Tellez at [facility] * 08/04/2020 7:30 am - Renae Mcmanus MD at [facility] 08/03/2020 - HANNY Tellez* N18.6 End stage renal disease * Z99.2 Dependence on renal dialysis * I70.245 Atherosclerosis of [place] arteries of left leg with ulceration of other part of foot Functional Status Description No Information Available Mental Status Description No Information Available Referrals Refer to Dr Reason for Referral Status Appt Date Renae Mcmanus MD AMPUTATION OF 4TH LEFT TOE Scheduled 08/03/2020 [address] [facility], [address] [place] [address] [phone]
--- OUTSIDE RECORDS SUMMARY | 2020-08-30 08:11 | CCD ---
Author Author [facility] Organization [facility] Address Unknown Phone Unavailable Care Team Providers Care Clinical Resource Manager Name Role Phone Yeni Mcmanus MD Unavailable Unavailable Yeni Mcmanus MD Unavailable Unavailable Yeni Mcmanus MD Unavailable Unavailable Yeni Mcmanus MD Unavailable Unavailable Yeni Mcmanus MD Unavailable Unavailable Yeni Mcmanus MD Unavailable Unavailable Yeni Mcmanus MD Unavailable Unavailable Yeni Mcmanus MD Unavailable Unavailable Yeni Mcmanus MD Unavailable Unavailable Yeni Mcmanus MD Unavailable Unavailable Yeni Mcmanus MD Unavailable Unavailable Yeni Mcmanus MD Unavailable Unavailable Yeni Mcmanus MD Unavailable Unavailable Yeni Mcmanus MD Unavailable Unavailable Yeni Mcmanus MD Unavailable Unavailable Dennise Conley MD Unavailable Unavailable Dennise Conley MD Unavailable Unavailable Dennise Conley MD Unavailable Unavailable Dennise Conley MD Unavailable Unavailable Dennise Conley MD Unavailable Unavailable Dennise Conley MD Unavailable Unavailable Dennise Conley MD Unavailable Unavailable Dennise Conley MD Unavailable Unavailable Dennise Conley MD Unavailable Unavailable Dennise Conley MD Unavailable Unavailable Dennise Conley MD Unavailable Unavailable Dennise Conley MD Unavailable Unavailable Dennise Conley MD Unavailable Unavailable Dennise Conley MD Unavailable Unavailable Dennise Conley MD Unavailable Unavailable Dennise Conley MD Unavailable Unavailable Dennise Conley MD Unavailable Unavailable Dennise Conley MD Unavailable Unavailable Dennise Conley MD Unavailable Unavailable Dennise Conley MD Unavailable Unavailable Dennise Conley MD Unavailable Unavailable Dennise Conley MD Unavailable Unavailable Dennise Conley MD Unavailable Unavailable Dennise Conley MD Unavailable Unavailable Dennise Conley MD Unavailable Unavailable Dennise Conley MD Unavailable Unavailable Dennise Conley MD Unavailable Unavailable Dennise Conley MD Unavailable Unavailable Dennise Conley MD Unavailable Unavailable Dennise Conley MD Unavailable Unavailable Dennise Conley MD Unavailable Unavailable Dennise Conley MD Unavailable Unavailable Dennise Conley MD Unavailable Unavailable Dennise Conley MD Unavailable Unavailable Dennise Conley MD Unavailable Unavailable Dnenise Conley MD Unavailable Unavailable Dennise Conley MD Unavailable Unavailable Dennise Conley MD Unavailable Unavailable Dennise Conley MD Unavailable Unavailable Dennise Conley MD Unavailable Unavailable Dennise Conley MD Unavailable Unavailable Dennise Conley MD Unavailable Unavailable Dennise Conley MD Unavailable Unavailable Dennise Conley MD Unavailable Unavailable Dennise Conley MD Unavailable Unavailable Dennise Conley MD Unavailable Unavailable Dennise Conley MD Unavailable Unavailable Dennise Conley MD Unavailable Unavailable Dennise Conley MD Unavailable Unavailable Dennise Conley MD Unavailable Unavailable Dennise Conley MD Unavailable Unavailable Dennise Conley MD Unavailable Unavailable Dennise Conley MD Unavailable Unavailable Dennise Conley MD Unavailable Unavailable Dennise Conley MD Unavailable Unavailable Dennise Conley MD Unavailable Unavailable Dennise Conley MD Unavailable Unavailable Dennise Conley MD Unavailable Unavailable MAJAK, R ANA DPM Unavailable Unavailable MAJAK, R ANA DPM Unavailable Unavailable MAJAK, R ANA DPM Unavailable Unavailable MAJAK, R ANA DPM Unavailable Unavailable MAJAK, R ANA DPM Unavailable Unavailable MAJAK, R ANA DPM Unavailable Unavailable MAJAK, R ANA DPM Unavailable Unavailable MAJAK, R ANA DPM Unavailable Unavailable MAJAK, R ANA DPM Unavailable Unavailable MAJAK, R ANA DPM Unavailable Unavailable MAJAK, R ANA DPM Unavailable Unavailable MAJAK, R ANA DPM Unavailable Unavailable MAJAK, R ANA DPM Unavailable Unavailable MAJAK, R ANA DPM Unavailable Unavailable MAJAK, R ANA DPM Unavailable Unavailable MAJAK, R ANA DPM Unavailable Unavailable MAJAK, R ANA DPM Unavailable Unavailable MAJAK, R ANA DPM Unavailable Unavailable MAJAK, R ANA DPM Unavailable Unavailable MAJAK, R ANA DPM Unavailable Unavailable MAJAK, R ANA DPM Unavailable Unavailable MAJAK, R ANA DPM Unavailable Unavailable MAJAK, R ANA DPM Unavailable Unavailable MAJAK, R ANA DPM Unavailable Unavailable MAJAK, R ANA DPM Unavailable Unavailable MAJAK, R ANA DPM Unavailable Unavailable MAJAK, R ANA DPM Unavailable Unavailable MAJAK, R ANA DPM Unavailable Unavailable MAJAK, R ANA DPM Unavailable Unavailable MAJAK, R ANA DPM Unavailable Unavailable Hernadez, L Lisa RPA Unavailable Unavailable Hernadez, L Lisa RPA Unavailable Unavailable Hernadez, L Lisa RPA Unavailable Unavailable Hernadez, L Lisa RPA Unavailable Unavailable Hernadez, L Lisa RPA Unavailable Unavailable Hernadez, L Lisa RPA Unavailable Unavailable Hernadez, L Lisa RPA Unavailable Unavailable Hernadez, L Lisa RPA Unavailable Unavailable Hernadez, L Lisa RPA Unavailable Unavailable Hernadez, L Lisa RPA Unavailable Unavailable Hernadez, L Lisa RPA Unavailable Unavailable Hernadez, L Lisa RPA Unavailable Unavailable Hernadez, L Lisa RPA Unavailable Unavailable Hernadez, L Lisa RPA Unavailable Unavailable Hernadez, L Lisa RPA Unavailable Unavailable Hernadez, L Lisa RPA Unavailable Unavailable Hernadez, L Lisa RPA Unavailable Unavailable Hernadez, L Lisa RPA Unavailable Unavailable Hernadez, L Lisa RPA Unavailable Unavailable Hernadez, L Lisa RPA Unavailable Unavailable Hernadez, L Lisa RPA Unavailable Unavailable Hernadez, L Lisa RPA Unavailable Unavailable Hernadez, L Lisa RPA Unavailable Unavailable Hernadez, L Lisa RPA Unavailable Unavailable Hernadez, L Lisa RPA Unavailable Unavailable Hernadez, L Lisa RPA Unavailable Unavailable Hernadez, L Lisa RPA Unavailable Unavailable Hernadez, L Lisa RPA Unavailable Unavailable Hernadez, L Lisa RPA Unavailable Unavailable Hernadez, L Lisa RPA Unavailable Unavailable Hernadez, L Lisa RPA Unavailable Unavailable Hernadez, L Lisa RPA Unavailable Unavailable Thankachan, Reeba CANINE ENFORCEMENT OFFICER Unavailable Unavailable Thankachan, Reeba CANINE ENFORCEMENT OFFICER Unavailable Unavailable Thankachan, Reeba CANINE ENFORCEMENT OFFICER Unavailable Unavailable Thankachan, Reeba CANINE ENFORCEMENT OFFICER Unavailable Unavailable Thankachan, Reeba CANINE ENFORCEMENT OFFICER Unavailable Unavailable Thankachan, Reeba CANINE ENFORCEMENT OFFICER Unavailable Unavailable Thankachan, Reeba CANINE ENFORCEMENT OFFICER Unavailable Unavailable Thankachan, Reeba CANINE ENFORCEMENT OFFICER Unavailable Unavailable Thankachan, Reeba CANINE ENFORCEMENT OFFICER Unavailable Unavailable Thankachan, Reeba CANINE ENFORCEMENT OFFICER Unavailable Unavailable Thankachan, Reeba CANINE ENFORCEMENT OFFICER Unavailable Unavailable Thankachan, Reeba CANINE ENFORCEMENT OFFICER Unavailable Unavailable Thankachan, Reeba CANINE ENFORCEMENT OFFICER Unavailable Unavailable Thankachan, Reeba CANINE ENFORCEMENT OFFICER Unavailable Unavailable Thankachan, Reeba CANINE ENFORCEMENT OFFICER Unavailable Unavailable Thankachan, Reeba CANINE ENFORCEMENT OFFICER Unavailable Unavailable Thankachan, Reeba CANINE ENFORCEMENT OFFICER Unavailable Unavailable Thankachan, Reeba CANINE ENFORCEMENT OFFICER Unavailable Unavailable Thankachan, Reeba CANINE ENFORCEMENT OFFICER Unavailable Unavailable Thankachan, Reeba CANINE ENFORCEMENT OFFICER Unavailable Unavailable Thankachan, Reeba CANINE ENFORCEMENT OFFICER Unavailable Unavailable Thankachan, Reeba CANINE ENFORCEMENT OFFICER Unavailable Unavailable Thankachan, Reeba CANINE ENFORCEMENT OFFICER Unavailable Unavailable Thankachan, Reeba CANINE ENFORCEMENT OFFICER Unavailable Unavailable Thankachan, Reeba CANINE ENFORCEMENT OFFICER Unavailable Unavailable Thankachan, Reeba CANINE ENFORCEMENT OFFICER Unavailable Unavailable Thankachan, Reeba CANINE ENFORCEMENT OFFICER Unavailable Unavailable Thankachan, Reeba CANINE ENFORCEMENT OFFICER Unavailable Unavailable Thankachan, Reeba CANINE ENFORCEMENT OFFICER Unavailable Unavailable Thankachan, Reeba CANINE ENFORCEMENT OFFICER Unavailable Unavailable Thankachan, Reeba CANINE ENFORCEMENT OFFICER Unavailable Unavailable Thankachan, Reeba CANINE ENFORCEMENT OFFICER Unavailable Unavailable Thankachan, Reeba CANINE ENFORCEMENT OFFICER Unavailable Unavailable Thankachan, Reeba CANINE ENFORCEMENT OFFICER Unavailable Unavailable Thankachan, Reeba CANINE ENFORCEMENT OFFICER Unavailable Unavailable Thankachan, Reeba CANINE ENFORCEMENT OFFICER Unavailable Unavailable Thankachan, Reeba CANINE ENFORCEMENT OFFICER Unavailable Unavailable Thankachan, Reeba CANINE ENFORCEMENT OFFICER Unavailable Unavailable Thankachan, Reeba CANINE ENFORCEMENT OFFICER Unavailable Unavailable Thankachan, Reeba CANINE ENFORCEMENT OFFICER Unavailable Unavailable Thankachan, Reeba CANINE ENFORCEMENT OFFICER Unavailable Unavailable Thankachan, Reeba CANINE ENFORCEMENT OFFICER Unavailable Unavailable Thankachan, Reeba CANINE ENFORCEMENT OFFICER Unavailable Unavailable Thankachan, Reeba CANINE ENFORCEMENT OFFICER Unavailable Unavailable Re-disclosure Warning The records that you are about to access may contain information from federally-assisted alcohol or drug abuse programs. If such information is present, then the following federally mandated warning applies: This information has been disclosed to you from records protected by federal confidentiality rules (42 CFR part 2). The federal rules prohibit you from making any further disclosure of this information unless further disclosure is expressly permitted by the written consent of the person to whom it pertains or as otherwise permitted by 42 CFR part 2. A general authorization for the release of medical or other information is NOT sufficient for this purpose. The Federal rules restrict any use of the information to criminally investigate or prosecute any alcohol or drug abuse patient.The records that you are about to access may contain highly sensitive health information, the redisclosure of which is protected by Article 27-F of the [facility] Public Health law. If you continue you may have access to information: Regarding HIV / AIDS; Provided by facilities licensed or operated by the [facility] Office of Mental Health; or Provided by the [facility] Office for People With Developmental Disabilities. If such information is present, then the following [facility] mandated warning applies: This information has been disclosed to you from confidential records which are protected by state law. State law prohibits you from making any further disclosure of this information without the specific written consent of the person to whom it pertains, or as otherwise permitted by law. Any unauthorized further disclosure in violation of state law may result in a fine or halfway sentence or both. A general authorization for the release of medical or other information is NOT sufficient authorization for further disc losure. Encounters Encounter Providers Location Date Indications Data Source(s ) Outpatient Attender: Ruma Angelo CANINE ENFORCEMENT OFFICER 09/30/2020 12:00: 00 AM [facility] Outpatient 09/14/2020 12:00:00 AM Health system (WND NP120) New Patient 120 Min [address] [place] [address] 08/24/2020 12:00:00 AM EST eCW1 (Formerly [facility]) Office Visit Attender: Renae Murphy/Beckie/Otto/ Sonam 08/12/2020 10:45:00 AM EST [facility] ([facility] Unknown [address] [facility] [address] 08/11/2020 12:00:00 AM EST eCW1 (formerly [facility]) Office Visit Attender: ANA MONAE [facility] Office 07/17 10:15:00 AM EST [facility] ([facility] [place] [address] [facility] [address] 08/06/2020 12:00:00 AM EST eCW1 (formerly [facility]) Office Visit Attender: Lisa Murphy/Beckie/Otto/R eindl 08/03/2020 08:45:00 AM EST MEDENT ([facility]) Outpatient Attender: Dennise Conley MD [email or web address] 07/16 12:00:00 AM EST - 07/27/2020 12:05:22 PM EST [facility] Office Visit Attender: ANA MONAE [facility] Office 02/2021 09:45:00 AM EST [facility] ([facility] Outpatient 08/11/2019 08:52:[address] [facility] Radiology Imaging [facility] [place] [address] [place] [address] 07/22/2019 12:00:00 AM EST eCW1 (Formerly [facility]) Medications Medication Brand Name Start Date Product Form Dose Route Admi nistrative Instructions Pharmacy Instructions Status Indications Reaction Description Data Source(s) sevelamer carbonate 800 MG Oral Tablet sevelamer (RENV SOLIS) 800 MG tablet sevelamer (RENVELA) 800 MG tablet 07/23/2020 12:00:00 AM EST active TAKE 1 TABLET BY MOUTH THREE TIMES DAILY WITH MEALS [facility] carvedilol 25 MG Oral Tablet carvedilol (COREG) 25 MG tablet carvedilol (COREG) 25 MG tablet 07/14/2020 12:00:00 AM EST 25 mg Oral activ e Take 25 mg by mouth 2 (two) times a day [facility] Calcitriol 0.49371 MG Oral Capsule calcitriol (ROCALTR OL) 0.25 MCG capsule calcitriol (ROCALTROL) 0.25 MCG capsule 07/14/2020 12:00:00 AM EST active TAKE 1 CAPSULE BY MOUTH ON Y SUNDAY AND SUNDAY AT 9AM [facility] atorvastatin 20 MG Oral Tablet atorvastatin (LIPITOR) 20 MG tablet atorvastatin (LIPITOR) 20 MG tablet 07/14/2020 12:00:00 AM EST 40 mg Oral active Take 40 mg by mouth daily [facility] sacubitril 49 MG / valsartan 51 MG Oral Tablet [Entresto] ENTRESTO 49-51 MG TABS ENTRESTO 49-51 MG TABS 07/14/2020 12:00:00 AM EST 1 {tbl} Oral active Take 1 tablet by mouth 2 (two) times a day [facility] Docusate Sodium 100 MG Oral Capsule [DOK] DOK 100 MG capsule DOK 100 MG capsule 07/14/2020 12:00:00 AM EST 100 mg Oral active Take 100 mg by mouth 2 (two) times a day [facility] pantoprazole 20 MG Delayed Release Oral Tablet pantoprazole (PROTONIX) 20 MG tablet pantoprazole (PROTONIX) 20 MG tablet 07/14/2020 12:00:00 AM EST 20 mg Oral active Take 20 mg by mouth daily [facility] 200 ACTUAT Albuterol 0.09 MG/ACTUAT Mete red Dose Inhaler [ProAir] ProAir HFA 108 (90 Base) MCG/ACT ProAir HFA 108 (90 Base) MCG/ACT 07/22/2019 12:00:00 AM EST 2.0 {puffs_as_needed} suspended ProAir HFA 108 (90 Base) MCG/ACT eCW1 ([facility]) ProAir HFA 108 (90 Base) MCG/ACT UNK 07/22/2019 12:00:00 AM EST active 2 puffs as needed eCW1 ([facility]) 200 ACTUAT Albuterol 0.09 MG/ACTUAT Mete red Dose Inhaler [ProAir] ProAir HFA 108 (90 Base) MCG/ACT ProAir HFA 108 (90 Base) MCG/ACT 07/22/2019 12:00:00 AM EST 2.0 {puffs_as_needed} suspended ProAir HFA 108 (90 Base) MCG/ACT eCW1 ([facility]) 200 ACTUAT Albuterol 0.09 MG/ACTUAT Mete red Dose Inhaler [ProAir] ProAir HFA 108 (90 Base) MCG/ACT ProAir HFA 108 (90 Base) MCG/ACT 07/22/2019 12:00:00 AM EST 2.0 {puffs_as_needed} suspended ProAir HFA 108 (90 Base) MCG/ACT eCW1 ([facility]) Insurance Providers Payer name Policy type / Coverage type Policy ID Covered alliance party ID Covered alliance party's relationship to hdez Policy Hdez Plan Information [place]/307 [id number] SP [id number] OTHER B TRANSPLANT Self TRANSPLAN T EXCELLUS BC-BS PPO [id number] SP [id number] EXCELLUS BCBS 03 EXCELLUS BCBS [id number] Nataliya VYA [id number] EXCELLUS BCBS B [id number] S VYA [id number] [place] PPO 302/307 [id number] SP [id number] [place] PPO 302/307 [id number] SP [id number] EXCELLUS BCBS B [id number] S [id number] [id number] [facility] FUND O [id number] S [id number] STATE INSURANCE FUND [id number] SP [id number] [place] PPO 302/307 [id number] SP [id number] BCBS [facility] 390/[id number] SP [id number] Problems, Conditions, and Diagnoses Code Display Name Description Problem Type Effective Dates Data Source(s) I70.209 [id number] Arteriosclerosis of arteries of extremiti es Problem 08/24/2020 12:00:00 AM EST eCW1 ([facility]) L97.522 [id number] Non-pressure chronic ulcer of other part of left foot with fat layer exposed Problem 08/20/2020 12:00:00 AM EST eCW1 ([facility]) E08.621 [id number] 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 Problem 08/20/2020 12:00:00 AM EST eCW1 (Formerly [facility]) I50.20 [id number] Systolic congestive heart failur e, unspecified HF chronicity Problem 08/06/2020 12:00:00 AM EST eCW1 (Formerly [facility]) I42.0 [id number] Dilated cardiomyopathy Problem 08/06/2020 12 :00:00 AM EST eCW1 ([facility]) N18.6 [id number] End stage renal disease Problem 08/06/2020 1 2:00:00 AM EST eCW1 ([facility]) D63.1 [id number] Anemia in chronic kidney disease Problem 08/06/2020 12:00:00 AM EST eCW1 ([facility]) N25.81 [id number] Secondary hyperparathyroidism of missy al origin Problem 08/06/2020 12:00:00 AM EST eCW1 ([facility]) Z99.2 495432471 Dependence on renal dialysis Problem 021 12:00:00 AM EST eCW1 ([facility]) I10 [id number] Essential hypertension Problem 08/06/2020 12 :00:00 AM EST eCW1 ([facility]) [id number] Peripheral vascular disease Peripheral vascular diseas e Problem 08/04/2020 12:00:00 AM EST [facility] [id number] Essential hypertension Essential hypertension Problem 07/29/2020 12:00:00 AM EST [facility] ([facility] ) N18.6 ESRD (end stage renal disease) on dialys is ESRD (end stage renal disease) on dialysis [id number] 07/26/2020 12:00:00 AM EST [facility] I50.41 Acute combined systolic and diastolic co ngestive heart failure Acute combined systolic and diastolic congestive heart failure [id number] 07/26/2020 12:00:00 AM EST [facility] [id number] Pain in limb Pain in limb Problem 07/20/2020 12:00:00 A M EST [facility] ([facility] [id number] Acute osteomyelitis of ankle and/or foot Acute osteomyelitis of ankle and/or foot Problem 07/20/2020 12:00:00 AM EST [facility] ([facility] Z99.2 Dependence on renal dialysis Dependence on renal dialy sis Diagnosis 07/27/2020 11:13:53 AM EST [facility] N18.6 End stage renal disease End stage renal disease Diagno sis 07/27/2020 11:13:53 AM EST [facility] I50.41 Acute combined systolic (con gestive) and diastolic (congestive) heart failure Acute combined systolic (congestive) and Diagnosis 07/27/2020 11:13:53 AM EST [facility] Surgeries/Procedures Procedure Description Date Indications Data Source(s) Medication: 4% Lidocaine topical cream (Anecream) 30 gm 08/24/2020 12:00:00 AM EST eCW1 (formerly [facility]) Medication: Santyl 250unit/G ointment to wound bed 08/24/2020 12:00:00 AM EST eCW1 ([facility]) REVSC OPN/PRQ TIB/SRI W/ANGIOPLASTY UNI 08/04/2020 12 :00:00 AM EST MEDENT ([facility] ) REVSC OPN/PRQ TIB/SIR W/ANGIOPLASTY UNI EA VSL 2020 12:00:00 AM EST [facility]ENT ([facility], ) REVSC OPN/PRQ TIB/SRI W/ANGIOPLASTY UNI EA VSL 2020 12:00:00 AM EST MEDENT ([facility], ) Moderate Sedation Services; Same Phys Intl 15 Mins; PT >= 5 Years 08/04/2020 12:00:00 AM EST MED[facility] ([facility], ) ECG ROUTINE ECG W/LEAST 12 LDS W/I&R POCT AMB EKG Routine 07/27/2020 11:38 AM EST Acute combined systolic and diastolic congestive heart failure 07/27/2020 04:38:00 PM EST Acute combined systolic and diastolic congestive heart failure [facility] Acute combined systolic and diastolic co ngestive heart failure Insertion Of Tunneled Centrally Inserted Central Venous Cath eter 07/13/2020 12:00:00 AM EST [facility] Ultrasound Guidance For Vascular Access Requiring Ultrasound Eval 07/13/2020 12:00:00 AM EST [facility] Amputation Toe MP JT 07/07/2020 12:00:00 AM EST [facility] Insertion Of Non-Tunneled Centrally Inserted Central Venous Amparo 07/05/2020 12:00:00 AM EST [facility] ([facility], ) Ultrasound Guidance For Vascular Access Requiring Ultrasound Eval 07/05/2020 12:00:00 AM EST [facility] ([facility], ) Results ID Date Data Source [id number] 07/01/2020 06:43:00 PM EST [facility] Name Value Range Interpretation Code Description Data Inge rce(s) Supporting Document(s) SARS coronavirus 2 RNA [Presence] in Res piratory specimen by JEREMY with probe detection [facility] This lab was ordered by [facility] a nd reported by [facility]. Procedure Social History Code Duration Value Status Description Data Source(s ) Smoking 08/24/2020 12:00:00 AM EST Never Smoker completed Never S moker eCW1 ([facility]) Smoking 07/29/2020 12:00:00 AM EST Never Smoker completed Never S moker eCW1 ([facility]) Smoking 07/29/2020 12:00:00 AM EST Never Smoker completed Never S moker eCW1 ([facility]) Alcohol intake 07/27/2020 12:00:00 AM EST Not Currently completed [facility] Smoking 07/27/2020 12:00:00 AM EST Never smoker completed Never s moker [facility] 07/01/2020 12:00:00 AM EST Chews Tobacco completed Chews Tobacco [facility] Vital Signs ID Date Data Source UNK Name Value Range Interpretation Code Description Data Source(s) Body surface area Derived from formula 2.22 m2 2.22 m2 [facility] ([facility]) Body weight 100.246 kg 100.246 kg [facility] ([facility]) [place] body weight 178 [lb_av] 178 [lb_av] [facility] ([facility]) Body mass index (BMI) [Ratio] 30.0 kg/m2 30.0 k g/m2 [facility] ([facility]) Body weight 221.00 [lb_av] 221.00 [[facility]_av] [facility] Body height 72 [in_i] 72 [in_i] [facility] ([facility]) 6'0" Diastolic blood pressure 81 mm[Hg] 81 mm[Hg] [facility] ([facility]) Systolic blood pressure 116 mm[Hg] 116 mm[Hg] [facility] ([facility]) Diastolic blood pressure 69 mm[Hg] 69 mm[Hg] eCW1 ([facility]) Systolic blood pressure 125 mm[Hg] 125 mm[Hg] e CW1 ([facility]) Body temperature 96.5 [degF] 96.5 [degF] eCW1 ( [facility]) Respiratory rate 17 /min 17 /min eCW1 ([facility]) Heart rate 82 /min 82 /min eCW1 ([facility]) Body mass index (BMI) [Ratio] 29.57 kg/m2 29.57 kg/m2 eCW1 ([facility]) Body height 72 [in_i] 72 [in_i] eCW1 ([facility]) Body weight kg eCW1 ([facility]) Body weight 218.02 [lb_av] 218.02 [lb_av] eCW1 ([facility]) Body surface area Derived from formula 2.25 m2 2.25 m2 [facility] ([facility]) Body weight 102.967 kg 102.967 kg [facility] ([facility]) [place] body weight 178 [lb_av] 178 [lb_av] [facility] ([facility]) Body mass index (BMI) [Ratio] 30.8 kg/m2 30.8 k g/m2 [facility] ([facility]) Body weight 227.00 [lb_av] 227.00 [lb_av] [facility] Body height 72 [in_i] 72 [in_i] [facility] ([facility]) 6'0" Diastolic blood pressure 60 mm[Hg] 60 mm[Hg] [facility] ([facility]) Systolic blood pressure 120 mm[Hg] 120 mm[Hg] [facility] ([facility]) Body surface area Derived from formula 2.27 m2 2.27 m2 [facility] ([facility]) Body weight 104.952 kg 104.952 kg [facility] ([facility]) [place] body weight 178 [lb_av] 178 [lb_av] [facility] Body mass index (BMI) [Ratio] 31.4 kg/m2 31.4 k g/m2 [facility] ([facility]) Body weight 231.38 [lb_av] 231.38 [lb_av] [facility] ([facility]) Body height 72 [in_i] 72 [in_i] [facility] ([facility]) 6'0" Diastolic blood pressure 72 mm[Hg] 72 mm[Hg] [facility] ([facility]) Systolic blood pressure 104 mm[Hg] 104 mm[Hg] [facility] ([facility]) Oxygen saturation in Arterial blood by Pulse oximetry 96 % 96 % [facility] Body mass index (BMI) [Ratio] 31.60 kg/m2 31.60 kg/m2 [facility] Body weight 105.688 kg 105.688 kg [facility] Body height 182.9 cm 182.9 cm [facility] Heart rate 71 /min 71 /min [facility] Diastolic blood pressure 100 mm[Hg] 100 mm[Hg] eCW1 ([facility]) Systolic blood pressure 138 mm[Hg] 138 mm[Hg] e CW1 ([facility]) Body temperature 97.9 [degF] 97.9 [degF] eCW1 ( [facility]) Respiratory rate 18 /min 18 /min eCW1 ([facility]) Heart rate 82 /min 82 /min eCW1 ([facility]) Body mass index (BMI) [Ratio] 35.26 kg/m2 35.26 kg/m2 eCW1 ([facility]) Body height 72 [in_us] 72 [in_us] eCW1 ([facility]) Body weight Measured 260 [lb_av] 260 [lb_av] eC W1 ([facility]) Patient Treatment Plan of Care Planned Activity Planned Date Details Description Data Source (s) sevelamer carbonate 800 MG Oral Tablet 07/23/2020 12:00:00 AM [facility] atorvastatin 20 MG Oral Tablet 07/14/2020 12:00:00 AM EST [facility] Calcitriol 0.12944 MG Oral Capsule 07/14/2020 12:00:00 AM [facility] carvedilol 25 MG Oral Tablet 07/14/2020 12:00:00 AM EST [facility] Docusate Sodium 100 MG Oral Capsule [DOK] 07/14/2020 12:00:00 AM ES T [facility] pantoprazole 20 MG Delayed Release Oral Tablet 07/14/2020 12:00:00 AM EST [facility] sacubitril 49 MG / valsartan 51 MG Oral Tablet [Entres to] 07/14/2020 12:00:00 AM EST [facility] ProAir HFA 108 (90 Base) MCG/ACT 07/22/2019 12:00:00 AM EST [facility] ([facility])
--- OUTSIDE RECORDS SUMMARY | 2020-08-30 08:11 | CCD | Continuity of Care Document ---
Author Author Will MONAE DPLeonela Organization Unknown Address [address] [place] [address], [address] [place] [address] Phone [phone] Care Team Providers Care Salesperson New Cars Name Role Phone Gold Benedict MD AUTM [phone] Problems Active Problems Provider Date Acute osteomyelitis of ankle and/or foot THANH Corae Onset: 07/20/2020 Pain in limb Sundar Monae DPM Onset: 07/20/2020 Social History Type Date Description Comments Sex Unknown ETOH Use Denies alcohol use Tobacco Use Start: Unknown Patient has never smoked Allergies, Adverse Reactions, Alerts Description No Known Drug Allergies Medications Description No Active Medications Immunizations Description No Information Available Vital Signs Description No Information Available Results Description No Information Available Procedures Date Code Description Status 07/07/2020 49680 Amputation Toe MP JT Completed Medical Devices Description No Information Available Encounters Type Date Location Provider Dx Diagnosis Office Visit 07/23/2020 10:45a [place] [facility] Sundar Monae DPM Z48.89 Encounter for [...] genao DPM Plan of Treatment Future Appointment(s):* 08/06/2020 11:15 am - Sundar Monae DPM at [place] [facility] Functional Status Description No Information Available Mental Status Description No Information Available Referrals Refer to Dr Reason for Referral Status Appt Date Sundar Monae DPM Created [address] [address] [phone]
--- OUTSIDE RECORDS SUMMARY | 2020-08-30 08:11 | CCD ---
Author Author [facility] Organization [facility] Address Unknown Phone Unavailable Care Team Providers Care Type Disk Quality Control Supervisor Name Role Phone Yesenia Dowell Unavailable PROBLEMS Type Condition ICD9-CM Code ORP85-SP Code Onset Dates Condition S tatus W/U Status Risk SNOMED Code Notes Problem Essential hypertension I10 Active confirmed 02628495 Problem Dependence on renal dialysis Z99.2 Active confirme d 849580169 Problem Secondary hyperparathyroidism of renal origin N25. 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 L97.522 Active confirmed 334467632 Problem End stage renal disease N18.6 Active confirmed 66702692 Problem Dilated cardiomyopathy I42.0 Active confirmed 636409147 Problem Systolic congestive heart failure, unspecified HF chronici ty I50.20 Active confirmed 82745862 Problem Arteriosclerosis of arteries of extremities I70.20 9 Active confirmed 289936028 ALLERGIES No Known Allergies ENCOUNTERS from 1983 to 2020-08-27 Encounter Location Date Provider Diagnosis [facility] [address] [place] [address] Aug Yesenia Dowell Arteriosclerosis of arteries of extremit ies I70.209 ; Diabetes mellitus due to underlying condition with foot ulcer E08.621 ; Non-pressure chronic ulcer of other part of left foot with fat layer exposed L97.522 and Non-pressure chronic ulcer of other part of right foot with fat layer exposed L97.512 IMMUNIZATIONS No Information SOCIAL HISTORY Tobacco Use: Social History Observation Description Date Details (start date - stop date) Never Smoker Sex Assigned At : Social History Observation Description Sex Assigned At Unknown Education: Question Answer Notes Level of Education: High School Audit Question Answer Notes Total Score: 0 Interpretation: Alcohol Education Language: Question Answer Notes Languages spoken: Maldiv[place] Church: Question Answer Notes Church 33 None No mormon beliefs that would impact health care. Sexual Hx: Question Answer Notes Had sex [...] Answer Notes Are you a: never smoker REASON FOR REFERRAL No Information VITAL SIGNS Weight 218.02 lbs Aug, Weight-kg PER PT kg Aug, Height 72 in Aug, BMI 29.57 kg/m2 Aug, Heart Rate 82 /min Aug, Respiratory Rate 17 /min Aug, Temperature 96.5 degrees Fahrenheit Aug, Oximetry 86% Aug, Blood pressure systolic 125 mm Hg Aug, Blood pressure diastolic 69 mm Hg Aug, MEDICATIONS Medication SIG (Take, Route, Frequency, Duration) Notes Start Da te End Date Status Renvela 800 MG 1 tablet with meals Orally Three times a day for 90 da y(s) Active Carvedilol 25 MG 1 tablet with food Orally Twice a day for 90 day(s) Active ProAir HFA 108 (90 Base) MCG/ACT 2 puffs as needed Inh alation every 4-6 hrs for 7 days Jul, Not-Taking Entresto 49-51 MG 1 tablet Orally Twice a day for 90 day(s) Active Atorvastatin Calcium 40 MG 1 tablet Orally Once a day for 90 day(s) Active Pantoprazole Sodium 20 MG 1 tablet Orally Once a day for 90 day(s) Active Calcitriol 0.25 MCG 1 capsule Orally Once a day for 90 day(s) Active Docusate Sodium 100 MG 1 capsule as needed Orally Once a day for 90 day(s) Active Levofloxacin 250 MG 2 tablets Orally Once a day for 10 day(s) Not-Taking PROCEDURES from 1983 to 2020-08-27 Procedure Date Ordered Result Body Site Medication: Santyl 250unit/G ointment to wound bed 2020-08-24 N/A Medication: 4% Lidocaine topical cream (Anecream) 30 gm N/A RESULTS No Results REASON FOR VISIT Left 4th toe MEDICAL (GENERAL) HISTORY Type Description Date Medical History ESRD Medical History GOUT Medical History HTN Medical History CHF Medical History GANGRENE IN LT FOOT Surgical History toe amputation 4th toe left foot 020 Surgical History right knee-2 PINS FROM FX 1999 Surgical History ANGIOGRAM 07/2020 Hospitalization History CHF/ renal failure 07/01-07/14/20 Goals Section No Information Health Concerns No Information MEDICAL EQUIPMENT No Information MENTAL STATUS No Information FUNCTIONAL STATUS No Information ASSESSMENTS Encounter Date Diagnosis Assessment Notes Treatment Notes Treatm ent Clinical Notes Aug, Arteriosclerosis of arteries of extremities (ICD -10 - I70.209) Aug, Diabetes mellitus due to und erlying condition with foot ulcer (ICD- 10 - E08.621) Aug, Non-pressure chronic ulcer o f other part of left foot with fat layer exposed (ICD-10 - L97.522) Aug, Non-pressure chronic ulcer o f other part of right foot with fat layer exposed (ICD-10 - L97.512) Aug, Other Debridement of a wound, infection, or burn material was printed,Type 2 diabetes material was printed,Chronic renal failure material was printed PLAN OF TREATMENT Treatment Notes Test Name Order Date ERYTHROCYTE SEDIMENTATION RATE 2020-08-24 Comprehensive Metabolic Profile (CMP) 2020-08-24 C REACTIVE PROTEIN QUANTITATIV (At [facility]) 2020-08-24 PT-INR 2020-08-24 RONY 2020-08-24 PROTEIN C ANTIGEN 2020-08-24 PROTEIN S ANTIGEN (TOT & FREE) 2020-08-24 FACTOR 5 LEIDEN PROFILE 2020-08-24 CBC with Differential 2020-08-24 ANCA Panel with MPO & PR3 2020-08-24 RHEUMATOID FACTOR QUANT 2020-08-24 HEPATITIS B MONITORING PROFILE 2020-08-24 UA URINALYSIS 2020-08-24 Next Appt Details 1 Week Reason: Provider Name:Yesenia Christian Magalys, 08-31 08:00:00 AM, [address] [place], [address], Provider Name:Yesenia Christian [place], 09-07 08:30:00 AM, [address] [place], [address], Provider Name:Rosi Rios, 07:15:00 AM, [address] [place], [address], Insurance Providers Payer Name Payer Address Payer Phone Insured Name Patient Relati onship to Insured Coverage Start Date Coverage End Date [employer] PPO [phone] [id number] [place] self
--- OUTSIDE RECORDS SUMMARY | 2020-08-30 08:11 | CCD | Continuity of Care Document ---
Author Author Will MONAE DPM Organization Unknown Address [address] [place] [address], [address] [place] [address] Phone [phone] Care Team Providers Care Candle Wrapper Name Role Phone Gold Benedict MD AUTM [phone] Problems Active Problems Provider Date Acute osteomyelitis of ankle and/or foot THANH Corea Onset: 07/20/2020 Pain in limb Sundar Monae DPM Onset: 07/20/2020 Social History Type Date Description Comments Sex Unknown ETOH Use Denies alcohol use Tobacco Use Start: Unknown Patient has never smoked Allergies, Adverse Reactions, Alerts Description No Known Drug Allergies Medications Description No Information Available Immunizations Description No Information Available Vital Signs Description No Information Available Results Description No Information Available Procedures Date Code Description Status 07/07/2020 63477 Amputation Toe MP JT Completed Medical Devices Description No Information Available Encounters Description No Information Available Assessments Date Code Description Provider 07/12/2020 M86.172 Other acute osteomyelitis, left ankle [...] 11:15 am - Sundar Monae DPM at [place] [facility] Functional Status Description No Information Available Mental Status Description No Information Available Referrals Refer to Reason for Referral Status Appt Date Sundar Monae DPM Created [address] [address] [phone]
--- OUTSIDE RECORDS SUMMARY | 2020-08-30 08:11 | CCD | Continuity of Care Document ---
Author Author Will MONAE DPM Organization Unknown Address [address] [place] [address], [address] [place] [address] Phone [phone] Care Team Providers Care Lead Section Supervisor Name Role Phone Gold Benedict MD AUTM [phone] Problems Active Problems Provider Date Acute osteomyelitis [...] Available Procedures Date Code Description Status 07/07/2020 62847 Amputation Toe MP JT Completed Medical Devices Description No Information Available Encounters Type Date Location Provider Dx Diagnosis Office Visit 08/06/2020 11:15a [place] [facility] Sundar Monae DPM Z48.89 Encounter for other specified surgical aftercare Office Visit 07/23/2020 10:45a [place] [facility] Sundar Monae DPM Z48.89 Encounter for other specified surgical aftercare Assessments Date Code Description Provider 08/06/2020 Z48.89 Encounter for other specified vanegas rgical aftercare Sundar Monae DPM 07/23/2020 Z48.89 Encounter for other specified vanegas rgical aftercare Sundar Monae DPM 07/12/2020 M86.172 Other acute osteomyelitis, left ankle and foot Sundar Monae DPM 07/07/2020 M86.172 Other acute osteomyelitis, left ankle and foot Sundar Monae, ILAN 07/04/2020 M86.172 Other acute osteomyelitis, left ankle and foot Sundar Monae DPM 07/04/2020 M79.675 Pain in left toe(s) Sundar genao DPM 07/02/2020 M86.172 Other acute osteomyelitis, left ankle and foot Sundar Monae DPM 07/02/2020 M79.675 Pain in left toe(s) Sundar genao DPM Plan of Treatment Future Appointment(s):* 09/10/2020 10:30 am - Sundar Monae DPM at [facility] Functional Status Description No Information Available Mental Status Description No Information Available Referrals Refer to Reason for Referral Status Appt Date Sundar Monae DPM Created [address] [address] [phone]
--- OUTSIDE RECORDS SUMMARY | 2020-08-30 08:36 | CCD ---
Author Author [facility] Organization [facility] Address Unknown Phone Unavailable Care Team Providers Care Child & Adolescent Psychiatrist Name Role Phone Yeni Mcmanus MD Unavailable [...] Unavailable Dennise Conley MD Unavailable Unavailable Dennise Conlye MD Unavailable Unavailable Dennise Conley MD Unavailable [...] Unavailable Hernadez, L Lisa RPA Unavailable Unavailable Hrenadez, L Lisa RPA Unavailable Unavailable Hernadez, L Lisa RPA Unavailable Unavailable Hernadez, L Lisa RPA Unavailable Unavailable Hernadez, L Lisa RPA Unavailable Unavailable Hernadez, L Lisa RPA Unavailable Unavailable Hernadez, L Lisa RPA Unavailable Unavailable Hernadez, L Lisa RPA Unavailable Unavailable Hrenadez, L Lisa RPA Unavailable Unavailable Hernadez, L [...] L Lisa RPA Unavailable Unavailable Thankachan, Reeba PLASTIC FIXTURE BUILDER Unavailable Unavailable Thankachan, Reeba PLASTIC FIXTURE BUILDER Unavailable Unavailable Thankachan, Reeba PLASTIC FIXTURE BUILDER Unavailable Unavailable Thankachan, Reeba PLASTIC FIXTURE BUILDER Unavailable Unavailable Thankachan, Reeba PLASTIC FIXTURE BUILDER Unavailable Unavailable Thankachan, Reeba PLASTIC FIXTURE BUILDER Unavailable Unavailable Thankachan, Reeba PLASTIC FIXTURE BUILDER Unavailable Unavailable Thankachan, Reeba PLASTIC FIXTURE BUILDER Unavailable Unavailable Thankachan, Reeba PLASTIC FIXTURE BUILDER Unavailable Unavailable Thankachan, Reeba PLASTIC FIXTURE BUILDER Unavailable Unavailable Thankachan, Reeba PLASTIC FIXTURE BUILDER Unavailable Unavailable Thankachan, Reeba PLASTIC FIXTURE BUILDER Unavailable Unavailable Thankachan, Reeba PLASTIC FIXTURE BUILDER Unavailable Unavailable Thankachan, Reeba PLASTIC FIXTURE BUILDER Unavailable Unavailable Thankachan, Reeba PLASTIC FIXTURE BUILDER Unavailable Unavailable Thankachan, Reeba PLASTIC FIXTURE BUILDER Unavailable Unavailable Thankachan, Reeba PLASTIC FIXTURE BUILDER Unavailable Unavailable Thankachan, Reeba PLASTIC FIXTURE BUILDER Unavailable Unavailable Thankachan, Reeba PLASTIC FIXTURE BUILDER Unavailable Unavailable Thankachan, Reeba PLASTIC FIXTURE BUILDER Unavailable Unavailable Thankachan, Reeba PLASTIC FIXTURE BUILDER Unavailable Unavailable Thankachan, Reeba PLASTIC FIXTURE BUILDER Unavailable Unavailable Thankachan, Reeba PLASTIC FIXTURE BUILDER Unavailable Unavailable Thankachan, Reeba PLASTIC FIXTURE BUILDER Unavailable Unavailable Thankachan, Reeba PLASTIC FIXTURE BUILDER Unavailable Unavailable Thankachan, Reeba PLASTIC FIXTURE BUILDER Unavailable Unavailable Thankachan, Reeba PLASTIC FIXTURE BUILDER Unavailable Unavailable Thankachan, Reeba PLASTIC FIXTURE BUILDER Unavailable Unavailable Thankachan, Reeba PLASTIC FIXTURE BUILDER Unavailable Unavailable Thankachan, Reeba PLASTIC FIXTURE BUILDER Unavailable Unavailable Thankachan, Reeba PLASTIC FIXTURE BUILDER Unavailable Unavailable Thankachan, Reeba PLASTIC FIXTURE BUILDER Unavailable Unavailable Thankachan, Reeba PLASTIC FIXTURE BUILDER Unavailable Unavailable Thankachan, Reeba PLASTIC FIXTURE BUILDER Unavailable Unavailable Thankachan, Reeba PLASTIC FIXTURE BUILDER Unavailable Unavailable Thankachan, Reeba PLASTIC FIXTURE BUILDER Unavailable Unavailable Thankachan, Reeba PLASTIC FIXTURE BUILDER Unavailable Unavailable Thankachan, Reeba PLASTIC FIXTURE BUILDER Unavailable Unavailable Thankachan, Reeba PLASTIC FIXTURE BUILDER Unavailable Unavailable Thankachan, Reeba PLASTIC FIXTURE BUILDER Unavailable Unavailable Thankachan, Reeba PLASTIC FIXTURE BUILDER Unavailable Unavailable Thankachan, Reeba PLASTIC FIXTURE BUILDER Unavailable Unavailable Thankachan, Reeba PLASTIC FIXTURE BUILDER Unavailable Unavailable Thankachan, Reeba PLASTIC FIXTURE BUILDER Unavailable Unavailable Re-disclosure Warning The records that [...] is protected by Article 27-F of the [facility] Public Health law. If you continue you may have access to information: Regarding HIV / AIDS; Provided by facilities licensed or operated by the [facility] Office of Mental Health; or Provided by the [facility] Office for People With Developmental Disabilities. If such information is present, then the following [facility] mandated warning applies: This information has [...] law may result in a fine or nursing home sentence or both. A general authorization for the release of medical or other information is NOT sufficient authorization for further disc losure. Encounters Encounter Providers Location Date Indications Data Source(s ) Outpatient Attender: Ruma Angelo PLASTIC FIXTURE BUILDER 09/30/2020 12:00: 00 AM [facility] Outpatient 09/14/2020 12:00:[address] [facility] (WND NP120) New Patient 120 Min [address] [place] [address] 08/24/2020 12:00:00 AM EST eCW1 (Formerly [facility]) Office Visit Attender: Renae Murphy/Beckie/Otto/ Sonam 08/12/2020 10:45:00 AM EST [facility] ([facility] Unknown [address] [facility] [address] 08/11/2020 12:00:00 AM EST eCW1 (Critical access hospital) Office Visit Attender: ANA MONAE [facility] Office 07/17 10:15:00 AM EST [facility] ([facility] Unknown [address] [facility] [address] 08/06/2020 12:00:00 AM EST eCW1 (Critical access hospital) Office Visit Attender: Lisa Murphy/Beckie/Otto/R eindl 08/03/2020 08:45:00 AM EST [facility] ([facility]) Outpatient Attender: Dennise Conley MD [email or web address] 07/16 12:00:00 AM EST - 07/27/2020 12:05:22 PM EST [facility] Office Visit Attender: ANA MONAE [facility] Office 02/2021 09:45:00 AM EST [facility] ([facility] Outpatient 08/11/2019 08:52:00 PM EST [facility] Radiology Imaging [facility] [place] [address] [place] [address] 07/22/2019 12:00:00 AM EST eCW1 ([facility]) Medications Medication Brand Name Start Date Product Form Dose Route Admi nistrative Instructions Pharmacy Instructions Status Indications Reaction Description Data Source(s) sevelamer carbonate 800 MG Oral Tablet sevelamer (RENV SOLIS) 800 MG tablet sevelamer (RENVELA) 800 MG tablet 07/23/2020 12:00:00 AM EST active TAKE 1 TABLET BY MOUTH THREE TIMES DAILY WITH MEALS [facility] carvedilol 25 MG Oral Tablet carvedilol (COREG) 25 MG tablet carvedilol (COREG) 25 MG tablet 07/14/2020 12:00:00 AM EST 25 mg Oral activ e Take 25 mg by mouth 2 (two) times a day [facility] Calcitriol 0.77406 MG Oral Capsule calcitriol (ROCALTR OL) 0.25 MCG capsule calcitriol (ROCALTROL) 0.25 MCG capsule 07/14/2020 12:00:00 AM EST active TAKE 1 CAPSULE BY MOUTH ON Y SUNDAY AND SUNDAY AT 9AM [facility] atorvastatin 20 MG Oral Tablet atorvastatin (LIPITOR) 20 MG tablet atorvastatin (LIPITOR) 20 MG tablet 07/14/2020 12:00:00 AM EST 40 mg Oral active Take 40 mg by mouth daily [facility] sacubitril 49 MG / valsartan 51 MG Oral Tablet [Entresto] ENTRESTO 49-51 MG TABS ENTRESTO 49-51 MG TABS 07/14/2020 12:00:00 AM EST 1 {tbl} Oral active Take 1 tablet by mouth 2 (two) times a day [facility] Docusate Sodium 100 MG Oral Capsule [DOK] DOK 100 MG capsule DOK 100 MG capsule 07/14/2020 12:00:00 AM EST 100 mg Oral active Take 100 mg by mouth 2 (two) times a day [facility] pantoprazole 20 MG Delayed Release Oral Tablet pantoprazole (PROTONIX) 20 MG tablet pantoprazole (PROTONIX) 20 MG tablet 07/14/2020 12:00:00 AM EST 20 mg Oral active Take 20 mg by mouth daily [facility] 200 ACTUAT Albuterol 0.09 MG/ACTUAT Mete red Dose Inhaler [ProAir] ProAir HFA 108 (90 Base) MCG/ACT ProAir HFA 108 (90 Base) MCG/ACT 07/22/2019 12:00:00 AM EST 2.0 {puffs_as_needed} suspended ProAir HFA 108 (90 Base) MCG/ACT eCW1 ([facility]) ProAir HFA 108 (90 Base) MCG/ACT UNK 07/22/2019 12:00:00 AM EST active 2 puffs as needed eCW1 ([facility]) 200 ACTUAT Albuterol 0.09 MG/ACTUAT Mete red Dose Inhaler [ProAir] ProAir HFA 108 (90 Base) MCG/ACT ProAir HFA 108 (90 Base) MCG/ACT 07/22/2019 12:00:00 AM EST 2.0 {puffs_as_needed} suspended ProAir HFA 108 (90 Base) MCG/ACT eCW1 ([facility]) 200 ACTUAT Albuterol 0.09 MG/ACTUAT Mete red Dose Inhaler [ProAir] ProAir HFA 108 (90 Base) MCG/ACT ProAir HFA 108 (90 Base) MCG/ACT 07/22/2019 12:00:00 AM EST 2.0 {puffs_as_needed} suspended ProAir HFA 108 (90 Base) MCG/ACT eCW1 ([facility]) Insurance Providers Payer name Policy type / Coverage type Policy ID Covered green party ID Covered green party's relationship to hdez Policy Hdez Plan Information [employer] [place]/307 [id number] SP [id number] OTHER B TRANSPLANT Self TRANSPLAN T EXCELLUS BC-BS PPO [id number] SP [id number] EXCELLUS BCBS 03 EXCELLUS BCBS [id number] Nataliya VYA [id number] EXCELLUS BCBS B [id number] S VYA [id number] [place] 302/307 [id number] SP [id number] [place] P[place] 302/307 [id number] SP [id number] EXCELLUS BCBS B [id number] S VYA [id number] [facility] INSURANCE FUND O [id number] S [id number] STATE INSURANCE FUND [id number] SP [id number] [place] PPO 302/307 [id number] SP [id number] BCBS [facility] 390/[phone] [id number] SP [id number] Problems, Conditions, and Diagnoses Code Display Name Description Problem Type Effective Dates Data Source(s) I70.209 [id number] Arteriosclerosis of arteries of extremiti es Problem 08/24/2020 12:00:00 AM EST eCW1 ([facility]) L97.522 [id number] Non-pressure chronic ulcer of other part of left foot with fat layer exposed Problem 08/20/2020 12:00:00 AM EST eCW1 ([facility]) E08.621 [id number] 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 Problem 08/20/2020 12:00:00 AM EST eCW1 ([facility]) I50.20 [id number] Systolic congestive heart failur e, unspecified HF chronicity Problem 08/06/2020 12:00:00 AM EST eCW1 ([facility]) I42.0 [id number] Dilated cardiomyopathy Problem 08/06/2020 12 :00:00 AM EST eCW1 ([facility]) N18.6 [id number] End stage renal disease Problem 08/06/2020 1 2:00:00 AM EST eCW1 ([facility]) D63.1 [id number] Anemia in chronic kidney disease Problem 08/06/2020 12:00:00 AM EST eCW1 ([facility]) N25.81 [id number] Secondary hyperparathyroidism of missy al origin Problem 08/06/2020 12:00:00 AM EST eCW1 ([facility]) Z99.2 [id number] Dependence on renal dialysis Problem 021 12:00:00 AM EST eCW1 ([facility]) I10 [id number] Essential hypertension Problem 08/06/2020 12 :00:00 AM EST eCW1 ([facility]) [id number] Peripheral vascular disease Peripheral vascular diseas e Problem 08/04/2020 12:00:00 AM EST [facility] [id number] Essential hypertension Essential hypertension Problem 07/29/2020 12:00:00 AM EST [facility] ([facility] ) N18.6 ESRD (end stage renal disease) on dialys is ESRD (end stage renal disease) on dialysis [id number] 07/26/2020 12:00:00 AM EST [facility] I50.41 Acute combined systolic and diastolic co ngestive heart failure Acute combined systolic and diastolic congestive heart failure [id number] 07/26/2020 12:00:00 AM EST [facility] [id number] Pain in limb Pain in limb Problem 07/20/2020 12:00:00 A M EST [facility] ([facility] [id number] Acute osteomyelitis of ankle and/or foot Acute osteomyelitis of ankle and/or foot Problem 07/20/2020 12:00:00 AM EST [facility] ([facility] Z99.2 Dependence on renal dialysis Dependence on renal dialy sis Diagnosis 07/27/2020 11:13:53 AM EST [facility] N18.6 End stage renal disease End stage renal disease Diagno sis 07/27/2020 11:13:53 AM EST [facility] I50.41 Acute combined systolic (con gestive) and diastolic (congestive) heart failure Acute combined systolic (congestive) and Diagnosis 07/27/2020 11:13:53 AM EST [facility] Surgeries/Procedures Procedure Description Date Indications Data Source(s) Medication: 4% Lidocaine topical cream (Anecream) 30 gm 08/24/2020 12:00:00 AM EST eCW1 (Critical access hospital) Medication: Santyl 250unit/G ointment to wound bed 08/24/2020 12:00:00 AM EST eCW1 ([facility]) REVSC OPN/PRQ TIB/SRI W/ANGIOPLASTY UNI 08/04/2020 12 :00:00 AM EST [facility] ([facility], ) REVSC OPN/PRQ TIB/SRI W/ANGIOPLASTY UNI EA VSL 2020 12:00:00 AM EST [facility] ([facility], ) REVSC OPN/PRQ TIB/SRI W/ANGIOPLASTY UNI EA VSL 2020 12:00:00 AM EST [facility] ([facility], ) Moderate Sedation Services; Same Phys Intl 15 Mins; PT >= 5 Years 08/04/2020 12:00:00 AM EST [facility] ([facility], ) ECG ROUTINE ECG W/LEAST 12 LDS W/I&R POCT AMB EKG Routine 07/27/2020 11:38 AM EST Acute combined systolic and diastolic congestive heart failure 07/27/2020 04:38:00 PM EST Acute combined systolic and diastolic congestive heart failure [facility] Acute combined systolic and diastolic co ngestive heart failure Insertion Of Tunneled Centrally Inserted Central Venous Cath eter 07/13/2020 12:00:00 AM EST [facility] Ultrasound Guidance For Vascular Access Requiring Ultrasound Eval 07/13/2020 12:00:00 AM EST [facility] ([facility] Amputation Toe MP JT 07/07/2020 12:00:00 AM EST [facility] ([facility] Insertion Of Non-Tunneled Centrally Inserted Central Venous Amparo 07/05/2020 12:00:00 AM EST [facility] ([facility], ) Ultrasound Guidance For Vascular Access Requiring Ultrasound Eval 07/05/2020 12:00:00 AM EST [facility] ([facility], ) Results ID Date Data Source [id number] 07/01/2020 06:43:00 PM EST [facility] Name Value Range Interpretation Code Description Data Inge rce(s) Supporting Document(s) SARS coronavirus 2 RNA [Presence] in Res piratory specimen by JEREMY with probe detection [facility] This lab was ordered by [facility] a nd reported by [facility]. Procedure Social History Code Duration Value Status Description Data Source(s ) Smoking 08/24/2020 12:00:00 AM EST Never Smoker completed Never S moker eCW1 ([facility]) Smoking 07/29/2020 12:00:00 AM EST Never Smoker completed Never S moker eCW1 ([facility]) Smoking 07/29/2020 12:00:00 AM EST Never Smoker completed Never S moker eCW1 ([facility]) Alcohol intake 07/27/2020 12:00:00 AM EST Not Currently completed [facility] Smoking 07/27/2020 12:00:00 AM EST Never smoker completed Never s moker [facility] 07/01/2020 12:00:00 AM EST Chews Tobacco completed Chews Tobacco [facility] Vital Signs ID Date Data Source UNK Name Value Range Interpretation Code Description Data Source(s) Body surface area Derived from formula 2.22 m2 2.22 m2 [facility] ([facility]) Body weight 100.246 kg 100.246 kg [facility] ([facility]) [place] body weight 178 [lb_av] 178 [lb_av] [facility] T ([facility]) Body mass index (BMI) [Ratio] 30.0 kg/m2 30.0 k g/m2 [facility] ([facility]) Body weight 221.00 [lb_av] 221.00 [lb_av] [facility] Body height 72 [in_i] 72 [in_i] [facility] ([facility]) 6'0" Diastolic blood pressure 81 mm[Hg] 81 mm[Hg] [facility] ([facility]) Systolic blood pressure 116 mm[Hg] 116 mm[Hg] [facility] ([facility]) Diastolic blood pressure 69 mm[Hg] 69 mm[Hg] eCW1 ([facility]) Systolic blood pressure 125 mm[Hg] 125 mm[Hg] e CW1 ([facility]) Body temperature 96.5 [degF] 96.5 [degF] eCW1 ( [facility]) Respiratory rate 17 /min 17 /min eCW1 ([facility]) Heart rate 82 /min 82 /min eCW1 ([facility]) Body mass index (BMI) [Ratio] 29.57 kg/m2 29.57 kg/m2 eCW1 ([facility]) Body height 72 [in_i] 72 [in_i] eCW1 ([facility]) Body weight kg eCW1 ([facility]) Body weight 218.02 [lb_av] 218.02 [lb_av] eCW1 ([facility]) Body surface area Derived from formula 2.25 m2 2.25 m2 [facility] ([facility]) Body weight 102.967 kg 102.967 kg [facility] ([facility]) [place] body weight 178 [lb_av] 178 [lb_av] [facility] T ([facility]) Body mass index (BMI) [Ratio] 30.8 kg/m2 30.8 k g/m2 [facility] ([facility]) Body weight 227.00 [lb_av] 227.00 [lb_av] [facility] Body height 72 [in_i] 72 [in_i] [facility] ([facility]) 6'0" Diastolic blood pressure 60 mm[Hg] 60 mm[Hg] [facility] ([facility]) Systolic blood pressure 120 mm[Hg] 120 mm[Hg] [facility] ([facility]) Body surface area Derived from formula 2.27 m2 2.27 m2 [facility] ([facility]) Body weight 104.952 kg 104.952 kg [facility] ([facility]) [place] body weight 178 [lb_av] 178 [lb_av] [facility] Body mass index (BMI) [Ratio] 31.4 kg/m2 31.4 k g/m2 [facility] ([facility]) Body weight 231.38 [lb_av] 231.38 [lb_av] [facility] Body height 72 [in_i] 72 [in_i] [facility] ([facility]) 6'0" Diastolic blood pressure 72 mm[Hg] 72 mm[Hg] [facility] ([facility]) Systolic blood pressure 104 mm[Hg] 104 mm[Hg] [facility] ([facility]) Oxygen saturation in Arterial blood by Pulse oximetry 96 % 96 % [facility] Body mass index (BMI) [Ratio] 31.60 kg/m2 31.60 kg/m2 [facility] Body weight 105.688 kg 105.688 kg [facility] Body height 182.9 cm 182.9 cm [facility] Heart rate 71 /min 71 /min [facility] Diastolic blood pressure 100 mm[Hg] 100 mm[Hg] eCW1 ([facility]) Systolic blood pressure 138 mm[Hg] 138 mm[Hg] e CW1 ([facility]) Body temperature 97.9 [degF] 97.9 [degF] eCW1 ( [facility]) Respiratory rate 18 /min 18 /min eCW1 ([facility]) Heart rate 82 /min 82 /min eCW1 ([facility]) Body mass index (BMI) [Ratio] 35.26 kg/m2 35.26 kg/m2 eCW1 ([facility]) Body height 72 [in_us] 72 [in_us] eCW1 ([facility]) Body weight Measured 260 [lb_av] 260 [lb_av] eC W1 ([facility]) Patient Treatment Plan of Care Planned Activity Planned Date Details Description Data Source (s) sevelamer carbonate 800 MG Oral Tablet 07/23/2020 12:00:00 AM [facility] atorvastatin 20 MG Oral Tablet 07/14/2020 12:00:00 AM EST [facility] Calcitriol 0.98039 MG Oral Capsule 07/14/2020 12:00:00 AM [facility] carvedilol 25 MG Oral Tablet 07/14/2020 12:00:00 AM EST [facility] Docusate Sodium 100 MG Oral Capsule [DOK] 07/14/2020 12:00:00 AM ES T [facility] pantoprazole 20 MG Delayed Release Oral Tablet 07/14/2020 12:00:00 AM EST [facility] sacubitril 49 MG / valsartan 51 MG Oral Tablet [Entres to] 07/14/2020 12:00:00 AM EST [facility] ProAir HFA 108 (90 Base) MCG/ACT 07/22/2019 12:00:00 AM EST [facility] ([facility])
[2020-08-30 08:49] LABS: BASO # 0.1 10^3/uL (0.0-0.2); BASO % 0.5 % (0.0-1.0); EOS # 0.2 10^3/uL (0.0-0.5); EOS % 1.2 % (0.0-3.0); LYMPH # 1.7 10^3/uL (1.5-5.0); LYMPH % 9.8 % (24.0-44.0); MEAN CORPUSCULAR HEMOGLOBIN 29.6 pg (27.0-33.0); MEAN CORPUSCULAR HGB CONC 33.2 g/dl (32.0-36.5); MEAN CORPUSCULAR VOLUME 89.2 fl (80.0-96.0); MONO # 1.3 10^3/uL (0.0-0.8); MONO % 7.5 % (2.0-8.0); NEUTROPHILS # 13.6 10^3/uL (1.5-8.5); NEUTROPHILS % 80.1 % (36.0-66.0); PLATELET COUNT, AUTOMATED 270 10^3/uL (150-450); RED BLOOD COUNT 2.23 10^6/uL (4.30-6.10)
[2020-08-30 08:51] LABS: HEMATOCRIT 19.9 % (42.0-52.0); HEMOGLOBIN 6.6 g/dl (13.5-17.5)
[2020-08-30] MEDS: PIPERACILLIN/TAZOBACTAM SOD 4.5 GM in D5W MINI-BAG PLUS 50 ML IV SCH ×2 (09:00→20:31)
[2020-08-30 09:50] LABS: ALBUMIN 2.5 GM/DL (3.2-5.2); BILIRUBIN,DIRECT 0.1 MG/DL (0.0-0.2); BILIRUBIN,TOTAL 0.2 MG/DL (0.2-1.0); CALCIUM LEVEL 9.4 MG/DL (8.5-10.1); CREATININE FOR GFR 9.82 MG/DL (0.70-1.30); GLOMERULAR FILTRATION RATE 6.4 (>60); POTASSIUM SERUM 3.7 MEQ/L (3.5-5.1); TOTAL PROTEIN 7.5 GM/DL (6.4-8.2)
[2020-08-30 09:58] LABS: RSV AMPLIFICATION NEGATIVE (NEGATIVE)
--- NOTE | 2020-08-30 10:12 | HPEPDOC ---
[facility] Medical History & Physical Date of Admission Aug 30, 2020 Date of Service: Aug 30, 2020 Attending Physician: Inez Blackwood MD History and Physical CHIEF COMPLAINT: nose bleed, lightheadedness HISTORY OF PRESENT ILLNESS: Patient is a 35 y/o M with PMH of ESRD on HD, HTN, Gout, b/l lower ext PAD s/p amputation of left foot 4th digit (06/2020) who presented to [facility] emergency room with the chief complaint of nosebleed since 12 AM. The patient states the bleeding became acute in the middle of the night after he blew his nose. He has had no nosebleeds over the past several weeks. He does have a history of epistaxis when his younger but this has not been an issue. He also complained of some lightheadedness, dizziness and blurry vision on his drive into the emergency room. He denied chest pain, shortness of breath, fevers, chills, nausea, vomiting, diarrhea, recent illnesses, melena, hematuria, dysuria, hemoptysis, palpitations, coughing. In the emergency room vital signs were stable. H/H was 6.6/19.9. Baseline hemoglobin normally 9.510. The patient is end-stage renal disease and gets hemodialysis regularly, sodium was low at 133, chloride 97 which is close to his baseline. Creatinine 9.8 , blood sugar 143. WBC 17K, ESR and CRP were ordered and are pending. There was no need for clipping or packing for epistaxis as his bleeding had stopped upon arrival to the emergency room. PLTs were wnl. Covid was negative. On examination by myself in the ER it is noted the patient had ulceration of his third and fourth digit on his right foot along with skin disc oloration of the anterior right forefoot, pulses were present. He has past medical history including peripheral arterial disease bilateral lower extremities for which she follows with vascular surgery and Dr. Bahena. He states he was just in podiatry's office 2 Fridays ago but his foot did not look this bad. The patient was admitted for acute on chronic anemia, right foot third and fourth digit ulceration needing to r/o infection. REVIEW OF SYSTEMS: Neg except mentioned above PAST MEDICAL HISTORY: ESRD on HD MWF Hypertension Gout GERD HLD PAD s/p arteriogram with arterial intervention of LLE on 08/04/20 (Dr. Mcmanus) Right foot 3rd, 4th digit ulceration (followed by Dr. Bahena, awaiting arteriogram by vascular surgery) HFrEF (EF 25%, last echo 06/2020) PAST SURGICAL HISTORY: 4th toe amputation by Dr. Bahena (07/07/20) Right knee surgery SOCIAL HISTORY: Drinks alcohol, Denies tobacco use, Denies illicit drug use. Specialist include: Dr. Bahena- podiatry, Dr. Mcmanus- vascular surgery, PCP- [facility], Nephrology- Dr. Howe, Cardiology- Dr. Conley. Lives alone, F[employer] FAMILY HISTORY: Mother had a history of breast cancer and diabetes Sister living no medical problems Father unknown ALLERGIES: Please see below. HOME MEDICATIONS: Please see below. PHYSICAL EXAMINATION: VS: Please see below CONSTITUTIONAL: No acute distress, resting comfortably, AAO x 3 EYES: PERRLA, EOM intact HENT, MOUTH: Normocephalic, atraumatic, moist mucous membranes NECK: SUPPLE, no JVD, no lymphadenopathy, no carotid bruit CV: Regular rate and rhythm, S1S2 normal, no murmurs/rubs/gallops CHEST: dialysis catheter, left IJ RESPIRATORY: Clear to auscultation bilaterally, no rales/rhonchi/wheezes GI: BS positive in 4 quadrants, soft, nontender, nondistended, no rebound or guarding, no organomegaly : Deferred EXT: Left 4th digit wound, covered in extensive bandage. Right foot 3rd and 4th digit ulceration, pain to palpation. Discoloration of right anterior/lateral forefoot, pulses in PT, DP present in b/l lower ext. Normal ROM of ankle, knee, hips b/l. No cyanosis, clubbing, joint deformity, extremity edema INTEGUMENTARY: No rashes NEUROLOGIC: Cranial Nerves II-XII are intact, no focal deficits PSYCHIATRIC: Mood and affect are normal LABORATORY DATA: Please see below MICRO: UA pending BCx pending x 2 sets IMAGING: F/u MRI right foot with contrast ASSESSMENT: 35 y/o M with PMH of ESRD on HD, HTN, Gout, b/l lower ext PAD s/p amputation of left foot 4th digit (06/2020) admitted for acute on chronic anemia, right foot third and fourth digit ulceration needing to r/o infection. PLAN: Acute on chronic anemia likely multifactorial 2/2 to iron deficiency, chronic disease, epistaxis -No longer s/s of bleeding. + lightheadedness, dizziness and blurry vision earlier -Hemodynamically stable -H/H 6.6/19.9, baseline Hgb 9.5-10. -2 units PRBC ordered, may require third if post-transfusion CBC <8 -Would benefit from iron supplementation, iron infusion- Would discuss with nephrology -CBC daily, tele Right foot 3rd, 4th digit ulceration, discoloration r/o worsening PAD, infection as cause -WBC 17K, afebrile, no purulence of digits -Hx of needing amputation left foot 4th toe 2/2 to gangrene, PAD -Discussed case with Dr. Bahena who is consulted, knows patient from o/p. Recommending MRI right foot, current IV abx and consultation of vascular surgery. -F/u MRI, cultures, ESR, CRP. -On IV zosyn currently. If no infection identified, per podiatry discharge home with 10-14 days of PO levofloxacin -Vascular surgery and podiatry consulted Left fourth toe wound, nonhealing 2/2 to PAD -Hx of gangrene/cellulitis of left foot s/p 4th toe amputation (07/07/20), treated with o/p levofloxacin -08/04 21 underwent LLE arteriogram with arterial intervention where angioplast of left peroneal artery, left posterior tibial artery, medial plantar artery and left anterior tibial artery was done with starling balloon -[place] with wound center, Dr. Medel -Last MRI 07/12/21: No osteo -Dr. Bahena following and does not seem to be source of infection PAD -Please see above -Following with Dr. Mcmanus, has upcoming angiogram of RLE on 09/01/20 scheduled, ask if she would like it to take place in house with recent changes in right foot -According to podiatry, no etiology was found for this middle-aged man to have such advanced PAD. Possible rheumatology etiology? Referral was placed for rheum to see as o/p but if telemedicine option is available after holiday, may want to consider doing this admission if able. -Vascular consulted -C/w statin, not on ASA or plavix ESRD on HD MWF -HD today, to get blood with HD -Recent kidney biopsy showed sclerotic changes of cortex. -Dialysis catheter in place, due to get fistula placed by Dr. Mcmanus on 09/08/20 -Discussed with Dr. Howe who is consulted Secondary hyperparathyroidism -Calcitriol home med Hypertension -Stable -C/w current meds HFrEF, not currently in exacerbation -Last echo in 06/2020 showed EF 25% -C/w BB, Entresto -F/u cardiology as o/p Dr. Conley Gout -Stable Obesity -Slightly improved BMI to 30 from 33.4 complicates care. GERD -PPI DVT px -Heparin SC DISPOSITION: Nephrology, vascular surgery and podiatry consulted. Plan is discharge home when medically improved. Vital Signs Vital Signs Date Time Temp Pulse Resp B/P (MAP) Pulse Ox O2 Delivery O2 Flow Rate FiO2 08/30/20 09:00 97 18 124/79 (94) 100 Room Air 08/30/20 07:59 98.9 Laboratory Data Labs 24H Laboratory Tests 2 08/30/20 08:28: Immature Granulocyte % (Auto) 0.9, Neutrophils (%) (Auto) 80.1H, Lymphocytes (%) (Auto) 9.8L, Monocytes (%) (Auto) 7.5H, Eosinophils (%) (Auto) 1.2, Basophils (%) (Auto) 0.5, Neutrophils # (Auto) 13.6H, Lymphocytes # (Auto) 1.7, Monocytes # (Auto) 1.3H, Eosinophils # (Auto) 0.2, Basophils # (Auto) 0.1, Nucleated Red Blood Cells % (auto) 0.0 08/30/20 08:58: Anion Gap 13, Glomerular Filtration Rate 6.4L, Calcium Level 9.4, Total Bilirubin 0.2, Direct Bilirubin 0.1, Aspartate Amino Transf (AST/SGOT) 10, Alanine Aminotransferase (ALT/SGPT) 21, Alkaline Phosphatase 217H, Total Protein 7.5, Albumin 2.5L, Albumin/Globulin Ratio 0.5, Coronavirus (COVID-19)(PCR) NEGAT ZAY, Influenza Type A (RT-PCR) NEGATIVE, Influenza Type B (RT-PCR) NEGATIVE, Respiratory Syncytial Virus (PCR) NEGATIVE CBC/BMP Laboratory Tests 08/30/20 08:28 08/30/20 08:58 Home Medications Scheduled Atorvastatin Calcium (Atorvastatin Calcium) 40 Mg Tablet, 20 MG PO QHS Calcitriol (Calcitriol) 0.25 Mcg Capsule, 0.25 MCG PO 3XW MON/SUN/FRI AT 0900 Carvedilol (Carvedilol) 25 Mg Tablet, 25 MG PO BID Docusate Sodium (Stool Softener) 100 Mg Capsule, 100 MG PO DAILY Pantoprazole Sodium (Pantoprazole Sodium) 20 Mg Tablet.dr, 20 MG PO QHS Sacubitril/Valsartan (Entresto 49 mg-51 mg Tablet) 1 Each Tablet, 1 TAB PO BID Sevelamer Carbonate (Renvela) 800 Mg Tablet, 800 MG PO WM Allergies Coded Allergies: No Known Drug Allergies (Verified Allergy, Unknown, 08/27/20) A-FIB/CHADSVASC A-FIB History Current/History of A-Fib/PAF?: No Current PO Anticoag Therapy: No Age/Risk Factor Scoring CHADSVASC: CHADSVASC Response (Comments) Value Age Risk Factor Age < 65 years old 0 Gender Risk Factor Male 0 Hx of CHF No 0 Hx of HTN Yes 1 Hx of Stroke/TIA/or VTE No 0 Hx of Diabetes No 0 Hx of Vascular Disease No 0 Total 1 Treatment Treatment ordered: Other Other anticoagulant ordered: heparin Inez Medellin MD Aug 30, 2020 10:12
--- OUTSIDE RECORDS SUMMARY | 2020-08-30 10:13 | CCD ---
Author Author [facility] Organization [facility] Address Unknown Phone Unavailable Care Team Providers Care Tufter Hand Name Role Phone Yeni Mcmanus MD Unavailable [...] L Lisa RPA Unavailable Unavailable Thankachan, Reeba PRIVATE PILOT Unavailable Unavailable Thankachan, Reeba PRIVATE PILOT Unavailable Unavailable Thankachan, Reeba PRIVATE PILOT Unavailable Unavailable Thankachan, Reeba PRIVATE PILOT Unavailable Unavailable Thankachan, Reeba PRIVATE PILOT Unavailable Unavailable Thankachan, Reeba PRIVATE PILOT Unavailable Unavailable Thankachan, Reeba PRIVATE PILOT Unavailable Unavailable Thankachan, Reeba PRIVATE PILOT Unavailable Unavailable Thankachan, Reeba PRIVATE PILOT Unavailable Unavailable Thankachan, Reeba PRIVATE PILOT Unavailable Unavailable Thankachan, Reeba PRIVATE PILOT Unavailable Unavailable Thankachan, Reeba PRIVATE PILOT Unavailable Unavailable Thankachan, Reeba PRIVATE PILOT Unavailable Unavailable Thankachan, Reeba PRIVATE PILOT Unavailable Unavailable Thankachan, Reeba PRIVATE PILOT Unavailable Unavailable Thankachan, Reeba PRIVATE PILOT Unavailable Unavailable Thankachan, Reeba PRIVATE PILOT Unavailable Unavailable Thankachan, Reeba PRIVATE PILOT Unavailable Unavailable Thankachan, Reeba PRIVATE PILOT Unavailable Unavailable Thankachan, Reeba PRIVATE PILOT Unavailable Unavailable Thankachan, Reeba PRIVATE PILOT Unavailable Unavailable Thankachan, Reeba PRIVATE PILOT Unavailable Unavailable Thankachan, Reeba PRIVATE PILOT Unavailable Unavailable Thankachan, Reeba PRIVATE PILOT Unavailable Unavailable Thankachan, Reeba PRIVATE PILOT Unavailable Unavailable Thankachan, Reeba PRIVATE PILOT Unavailable Unavailable Thankachan, Reeba PRIVATE PILOT Unavailable Unavailable Thankachan, Reeba PRIVATE PILOT Unavailable Unavailable Thankachan, Reeba PRIVATE PILOT Unavailable Unavailable Thankachan, Reeba PRIVATE PILOT Unavailable Unavailable Thankachan, Reeba PRIVATE PILOT Unavailable Unavailable Thankachan, Reeba PRIVATE PILOT Unavailable Unavailable Thankachan, Reeba PRIVATE PILOT Unavailable Unavailable Thankachan, Reeba PRIVATE PILOT Unavailable Unavailable Thankachan, Reeba PRIVATE PILOT Unavailable Unavailable Thankachan, Reeba PRIVATE PILOT Unavailable Unavailable Thankachan, Reeba PRIVATE PILOT Unavailable Unavailable Thankachan, Reeba PRIVATE PILOT Unavailable Unavailable Thankachan, Reeba PRIVATE PILOT Unavailable Unavailable Thankachan, Reeba PRIVATE PILOT Unavailable Unavailable Thankachan, Reeba PRIVATE PILOT Unavailable Unavailable Thankachan, Reeba PRIVATE PILOT Unavailable Unavailable Thankachan, Reeba PRIVATE PILOT Unavailable Unavailable Thankachan, Reeba PRIVATE PILOT Unavailable Unavailable Re-disclosure Warning The records that [...] is protected by Article 27-F of the [facility] Public Health law. If you continue you may have access to information: Regarding HIV / AIDS; Provided by facilities licensed or operated by the [facility] Office of Mental Health; or Provided by the [facility] Office for People With Developmental Disabilities. If such information is present, then the following [facility] mandated warning applies: This information has been [...] law may result in a fine or half-way sentence or both. A general authorization for the release of medical or other information is NOT sufficient authorization for further disc losure. Encounters Encounter Providers Location Date Indications Data Source(s ) Outpatient Attender: Ruma Angelo PRIVATE PILOT 09/30/2020 12:00: [address] [facility] Outpatient 09/14/2020 12:00:00 AM [facility] (WND [id number]) New Patient 120 Min [address] [place] [address] 08/24/2020 12:00:00 AM EST eCW1 ([facility]) Office Visit Attender: Renae Murphy/Beckie/Otto/ Sonam 08/12/2020 10:45:00 AM EST MEDENT ([facility] Unknown [address] [place] [address] 08/11/2020 12:00:00 AM EST eCW1 ([facility]) Office Visit Attender: ANA MONAE [facility] Office 07/17 10:15:00 AM EST MEDENT ([facility] Unknown [address] [place] [address] 08/06/2020 12:00:00 AM EST eCW1 ([facility]) Office Visit Attender: Lisa Murphy/Beckie/Otto/R eindl 08/03/2020 08:45:00 AM EST MEDENT ([facility]) Outpatient Attender: Dennise Conley MD [email or web address] 07/16 12:00:00 AM EST - 07/27/2020 12:05:22 PM EST [facility] Office Visit Attender: ANA MONAE [facility] Office 02/2021 09:45:00 AM EST MEDENT ([facility] Outpatient 08/11/2019 08:52:00 PM EST [facility] Radiology Imaging [facility] [address] [place] [address] 07/22/2019 12:00:00 AM EST eCW1 ([facility]) Medications Medication Brand Name Start Date Product Form Dose Route Admi nistrative Instructions Pharmacy Instructions Status Indications Reaction Description Data Source(s) sevelamer carbonate 800 MG Oral Tablet sevelamer (RENV SOLIS) 800 MG tablet sevelamer (RENVELA) 800 MG tablet 07/23/2020 12:00:00 AM EST active TAKE 1 TABLET BY MOUTH THREE TIMES DAILY WITH MEALS [facility] carvedilol 25 MG Oral Tablet carvedilol (COREG) 25 MG tablet carvedilol (COREG) 25 MG tablet 07/14/2020 12:00:00 AM EST 25 mg Oral activ e Take 25 mg by mouth 2 (two) times a day [facility] Calcitriol 0.93213 MG Oral Capsule calcitriol (ROCALTR OL) 0.25 MCG capsule calcitriol (ROCALTROL) 0.25 MCG capsule 07/14/2020 12:00:00 AM EST active TAKE 1 CAPSULE BY MOUTH ON Y SUNDAY AND SUNDAY AT 9AM [facility] atorvastatin 20 MG Oral Tablet atorvastatin (LIPITOR) 20 MG tablet atorvastatin (LIPITOR) 20 MG tablet 07/14/2020 12:00:00 AM EST 40 mg Oral active Take 40 mg by mouth daily [facility] sacubitril 49 MG / valsartan 51 MG Oral Tablet [Entresto] ENTRESTO 49-51 MG TABS ENTRESTO 49-51 MG TABS 07/14/2020 12:00:00 AM EST 1 {tbl} Oral active Take 1 tablet by mouth 2 (two) times a day [facility] Docusate Sodium 100 MG Oral Capsule [DOK] DOK 100 MG capsule DOK 100 MG capsule 07/14/2020 12:00:00 AM EST 100 mg Oral active Take 100 mg by mouth 2 (two) times a day [facility] pantoprazole 20 MG Delayed Release Oral Tablet pantoprazole (PROTONIX) 20 MG tablet pantoprazole (PROTONIX) 20 MG tablet 07/14/2020 12:00:00 AM EST 20 mg Oral active Take 20 mg by mouth daily [facility] 200 ACTUAT Albuterol 0.09 MG/ACTUAT Mete red Dose Inhaler [ProAir] ProAir HFA 108 (90 Base) MCG/ACT ProAir HFA 108 (90 Base) MCG/ACT 07/22/2019 12:00:00 AM EST 2.0 {puffs_as_needed} suspended ProAir HFA 108 (90 Base) MCG/ACT eCW1 ([facility]) ProAir HFA 108 (90 Base) MCG/ACT UNK 07/22/2019 12:00:00 AM EST active 2 puffs as needed eCW1 ([facility]) 200 ACTUAT Albuterol 0.09 MG/ACTUAT Mete red Dose Inhaler [ProAir] ProAir HFA 108 (90 Base) MCG/ACT ProAir HFA 108 (90 Base) MCG/ACT 07/22/2019 12:00:00 AM EST 2.0 {puffs_as_needed} suspended ProAir HFA 108 (90 Base) MCG/ACT eCW1 ([facility]) 200 ACTUAT Albuterol 0.09 MG/ACTUAT Mete red Dose Inhaler [ProAir] ProAir HFA 108 (90 Base) MCG/ACT ProAir HFA 108 (90 Base) MCG/ACT 07/22/2019 12:00:00 AM EST 2.0 {puffs_as_needed} suspended ProAir HFA 108 (90 Base) MCG/ACT eCW1 ([facility]) Insurance Providers Payer name Policy type / Coverage type Policy ID Covered libertarian ID Covered libertarian's relationship to hdez Policy Hdez Plan Information [place]/307 [id number] SP [id number] OTHER B TRANSPLANT Self TRANSPLAN T EXCELLUS BC-BS PPO [id number] SP [id number] EXCELLUS BCBS 03 EXCELLUS BCBS [id number] Nataliya VYA [id number] EXCELLUS BCBS B [id number] S VYA [id number] [place] 302/307 [id number] SP [id number] [place] 302/307 [id number] SP [id number] EXCELLUS BCBS B [id number] S VYA [id number] [facility] INSURANCE FUND O [id number] S [id number] STATE INSURANCE FUND [id number] SP [id number] [place] 302/307 [id number] SP [id number] BCBS [facility] [phone] [id number] SP [id number] Problems, Conditions, and Diagnoses Code Display Name Description Problem Type Effective Dates Data Source(s) I70.209 [id number] Arteriosclerosis of arteries of extremiti es Problem 08/24/2020 12:00:00 AM EST eCW1 ([facility]) L97.522 [id number] Non-pressure chronic ulcer of other part of left foot with fat layer exposed Problem 08/20/2020 12:00:00 AM EST eCW1 ([facility]) E08.621 [id number] 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 Problem 08/20/2020 12:00:00 AM EST eCW1 ([facility]) I50.20 [id number] Systolic congestive heart failur e, unspecified HF chronicity Problem 08/06/2020 12:00:00 AM EST eCW1 ([facility]) I42.0 [id number] Dilated cardiomyopathy Problem 08/06/2020 12 :00:00 AM EST eCW1 ([facility]) N18.6 [id number] End stage renal disease Problem 08/06/2020 1 2:00:00 AM EST eCW1 ([facility]) D63.1 [id number] Anemia in chronic kidney disease Problem 08/06/2020 12:00:00 AM EST eCW1 ([facility]) N25.81 [id number] Secondary hyperparathyroidism of missy al origin Problem 08/06/2020 12:00:00 AM EST eCW1 ([facility]) Z99.2 [id number] Dependence on renal dialysis Problem 021 12:00:00 AM EST eCW1 ([facility]) I10 [id number] Essential hypertension Problem 08/06/2020 12 :00:00 AM EST eCW1 ([facility]) [id number] Peripheral vascular disease Peripheral vascular diseas e Problem 08/04/2020 12:00:00 AM EST MED[facility] [id number] Essential hypertension Essential hypertension Problem 07/29/2020 12:00:00 AM EST MEDENT ([facility] ) N18.6 ESRD (end stage renal disease) on dialys is ESRD (end stage renal disease) on dialysis [id number] 07/26/2020 12:00:00 AM EST [facility] I50.41 Acute combined systolic and diastolic co ngestive heart failure Acute combined systolic and diastolic congestive heart failure [id number] 07/26/2020 12:00:00 AM EST [facility] [id number] Pain in limb Pain in limb Problem 07/20/2020 12:00:00 A M EST MED[facility] ([facility] [id number] Acute osteomyelitis of ankle and/or foot Acute osteomyelitis of ankle and/or foot Problem 07/20/2020 12:00:00 AM EST [facility] ([facility] Z99.2 Dependence on renal dialysis Dependence on renal dialy sis Diagnosis 07/27/2020 11:13:53 AM EST [facility] N18.6 End stage renal disease End stage renal disease Diagno sis 07/27/2020 11:13:53 AM EST [facility] I50.41 Acute combined systolic (con gestive) and diastolic (congestive) heart failure Acute combined systolic (congestive) and Diagnosis 07/27/2020 11:13:53 AM EST [facility] Surgeries/Procedures Procedure Description Date Indications Data Source(s) Medication: 4% Lidocaine topical cream (Anecream) 30 gm 08/24/2020 12:00:00 AM EST eCW1 ([facility]) Medication: Santyl 250unit/G ointment to wound bed 08/24/2020 12:00:00 AM EST eCW1 ([facility]) REVSC OPN/PRQ TIB/SRI W/ANGIOPLASTY UNI 08/04/2020 12 :00:00 AM EST MEDENT ([facility] ) REVSC OPN/PRQ TIB/SRI W/ANGIOPLASTY UNI EA VSL 2020 12:00:00 AM EST MEDENT ([facility] ) REVSC OPN/PRQ TIB/SRI W/ANGIOPLASTY UNI EA VSL 2020 12:00:00 AM EST MEDENT ([facility] ) Moderate Sedation Services; Same Phys Intl 15 Mins; PT >= 5 Years 08/04/2020 12:00:00 AM EST MEDENT ([facility], ) ECG ROUTINE ECG W/LEAST 12 LDS W/I&R POCT AMB EKG Routine 07/27/2020 11:38 AM EST Acute combined systolic and diastolic congestive heart failure 07/27/2020 04:38:00 PM EST Acute combined systolic and diastolic congestive heart failure [facility] Acute combined systolic and diastolic co ngestive heart failure Insertion Of Tunneled Centrally Inserted Central Venous Cath eter 07/13/2020 12:00:00 AM EST MEDENT [facility] Ultrasound Guidance For Vascular Access Requiring Ultrasound Eval 07/13/2020 12:00:00 AM EST MEDENT ([facility] Amputation Toe MP JT 07/07/2020 12:00:00 AM EST [facility] ([facility] Insertion Of Non-Tunneled Centrally Inserted Central Venous Amparo 07/05/2020 12:00:00 AM EST MEDENT ([facility], ) Ultrasound Guidance For Vascular Access Requiring Ultrasound Eval 07/05/2020 12:00:00 AM EST MEDENT ([facility], ) Results ID Date Data Source [id number] 07/01/2020 06:43:00 PM EST [facility] Name Value Range Interpretation Code Description Data Inge rce(s) Supporting Document(s) SARS coronavirus 2 RNA [Presence] in Res piratory specimen by JEREMY with probe detection [facility] This lab was ordered by [facility] a nd reported by [facility]. Procedure Social History Code Duration Value Status Description Data Source(s ) Smoking 08/24/2020 12:00:00 AM EST Never Smoker completed Never S moker eCW1 ([facility]) Smoking 07/29/2020 12:00:00 AM EST Never Smoker completed Never S moker eCW1 ([facility]) Smoking 07/29/2020 12:00:00 AM EST Never Smoker completed Never S moker eCW1 ([facility]) Alcohol intake 07/27/2020 12:00:00 AM EST Not Currently completed [facility] Smoking 07/27/2020 12:00:00 AM EST Never smoker completed Never s moker [facility] 07/01/2020 12:00:00 AM EST Chews Tobacco completed Chews Tobacco [facility] Vital Signs ID Date Data Source UNK Name Value Range Interpretation Code Description Data Source(s) Body surface area Derived from formula 2.22 m2 2.22 m2 [facility] ([facility]) Body weight 100.246 kg 100.246 kg [facility] ([facility]) [place] body weight 178 [lb_av] 178 [lb_av] MEDEN T ([facility]) Body mass index (BMI) [Ratio] 30.0 kg/m2 30.0 k g/m2 [facility] ([facility]) Body weight 221.00 [lb_av] 221.00 [lb_av] [facility] Body height 72 [in_i] 72 [in_i] [facility] ([facility]) 6'0" Diastolic blood pressure 81 mm[Hg] 81 mm[Hg] [facility] ([facility]) Systolic blood pressure 116 mm[Hg] 116 mm[Hg] M EDENT ([facility]) Diastolic blood pressure 69 mm[Hg] 69 mm[Hg] eCW1 ([facility]) Systolic blood pressure 125 mm[Hg] 125 mm[Hg] e CW1 ([facility]) Body temperature 96.5 [degF] 96.5 [degF] eCW1 ( [facility]) Respiratory rate 17 /min 17 /min eCW1 ([facility]) Heart rate 82 /min 82 /min eCW1 ([facility]) Body mass index (BMI) [Ratio] 29.57 kg/m2 29.57 kg/m2 eCW1 ([facility]) Body height 72 [in_i] 72 [in_i] eCW1 ([facility]) Body weight kg eCW1 ([facility]) Body weight 218.02 [lb_av] 218.02 [lb_av] eCW1 ([facility]) Body surface area Derived from formula 2.25 m2 2.25 m2 [facility] ([facility]) Body weight 102.967 kg 102.967 kg [facility] ([facility]) [place] body weight 178 [lb_av] 178 [lb_av] MEDEN T ([facility]) Body mass index (BMI) [Ratio] 30.8 kg/m2 30.8 k g/m2 [facility] ([facility]) Body weight 227.00 [lb_av] 227.00 [lb_av] [facility] Body height 72 [in_i] 72 [in_i] [facility] ([facility]) 6'0" Diastolic blood pressure 60 mm[Hg] 60 mm[Hg] [facility] ([facility]) Systolic blood pressure 120 mm[Hg] 120 mm[Hg] [facility] ([facility]) Body surface area Derived from formula 2.27 m2 2.27 m2 [facility] ([facility]) Body weight 104.952 kg 104.952 kg [facility] ([facility]) [place] body weight 178 [lb_av] 178 [lb_av] [facility] Body mass index (BMI) [Ratio] 31.4 kg/m2 31.4 k g/m2 [facility] ([facility]) Body weight 231.38 [lb_av] 231.38 [lb_av] [facility] Body height 72 [in_i] 72 [in_i] [facility] ([facility]) 6'0" Diastolic blood pressure 72 mm[Hg] 72 mm[Hg] [facility] ([facility]) Systolic blood pressure 104 mm[Hg] 104 mm[Hg] [facility] ([facility]) Oxygen saturation in Arterial blood by Pulse oximetry 96 % 96 % [facility] Body mass index (BMI) [Ratio] 31.60 kg/m2 31.60 kg/m2 [facility] Body weight 105.688 kg 105.688 kg [facility] Body height 182.9 cm 182.9 cm [facility] Heart rate 71 /min 71 /min [facility] Diastolic blood pressure 100 mm[Hg] 100 mm[Hg] eCW1 ([facility]) Systolic blood pressure 138 mm[Hg] 138 mm[Hg] e CW1 ([facility]) Body temperature 97.9 [degF] 97.9 [degF] eCW1 ( [facility]) Respiratory rate 18 /min 18 /min eCW1 ([facility]) Heart rate 82 /min 82 /min eCW1 ([facility]) Body mass index (BMI) [Ratio] 35.26 kg/m2 35.26 kg/m2 eCW1 ([facility]) Body height 72 [in_us] 72 [in_us] eCW1 ([facility]) Body weight Measured 260 [lb_av] 260 [lb_av] eC W1 ([facility]) Patient Treatment Plan of Care Planned Activity Planned Date Details Description Data Source (s) sevelamer carbonate 800 MG Oral Tablet 07/23/2020 12:00:00 AM [facility] atorvastatin 20 MG Oral Tablet 07/14/2020 12:00:00 AM EST [facility] Calcitriol 0.41671 MG Oral Capsule 07/14/2020 12:00:00 AM [facility] carvedilol 25 MG Oral Tablet 07/14/2020 12:00:00 AM EST [facility] Docusate Sodium 100 MG Oral Capsule [DOK] 07/14/2020 12:00:00 AM ES T [facility] pantoprazole 20 MG Delayed Release Oral Tablet 07/14/2020 12:00:00 AM EST [facility] sacubitril 49 MG / valsartan 51 MG Oral Tablet [Entres to] 07/14/2020 12:00:00 AM EST [facility] ProAir HFA 108 (90 Base) MCG/ACT 07/22/2019 12:00:00 AM EST [facility] ([facility])
[2020-08-30] MEDS ORDERED: MM S100C PO (10:22)
[2020-08-30] MEDS ORDERED: RENV2TAB PO (10:22)
[2020-08-30] MEDS ORDERED: ENTR1TAB7 PO (10:22)
[2020-08-30] MEDS ORDERED: CARV25TA PO (10:22)
[2020-08-30] MEDS ORDERED: PANT20TA6 PO (10:22)
[2020-08-30] MEDS ORDERED: ATOR40TA75 PO (10:22)
[2020-08-30] MEDS ORDERED: CALC1CAP31 PO (10:22)
[2020-08-30 10:30] LABS: INR 1.18; PROTHROMBIN TIME 15.3 SECONDS (12.5-14.3)
[2020-08-30 10:31] LABS: PARTIAL THROMBOPLASTIN TIME 40.1 SECONDS (24.2-38.5)
[2020-08-30 11:40] LABS: C REACTIVE PROTEIN QUANTITATIV 16.3 MG/DL (0.00-0.30)
[2020-08-30] MEDS ORDERED: PIPERACILLIN/TAZOBACTAM SOD 3.375 GM in D5W MINI-BAG PLUS 50 ML IV SCH (11:45)
[2020-08-30] MEDS: DOCUSATE SODIUM 100MG CAPSULE PO SCH (11:46)
[2020-08-30] MEDS: CARVedilol 12.5 MG TAB PO SCH ×2 (11:46→20:30)
[2020-08-30] MEDS: (RENVELA) SEVELAMER **CARBONate** 800 MG TAB PO SCH ×2 (11:46→18:23)
[2020-08-30] MEDS: ENTRESTO 49-51MG TABLET (SACUBITRIL/VALSARTAN) PO SCH ×2 (11:52→20:27)
[2020-08-30 12:16] LABS: ERYTHROCYTE SEDIMENTATION RATE 126 mm/hr (0-15)
--- NOTE | 2020-08-30 12:48 | CR ---
CONSULTATION DATE: 08/30/2020 REQUESTING PHYSICIAN: IRON SHEPARD MD REASON FOR CONSULTATION: To assist in the management of endstage renal disease and severe anemia. HISTORY OF PRESENT ILLNESS: Mr. Flood is a 35-year-old male with a known history of endstage renal disease, hypertension, diabetes, and gout. He has recently started dialysis. He had amputation of his left foot toes due to ischemic gangrene and wound is healing. He does not have any active infection. He presented to the Emergency Room this morning with prolonged nosebleed. He reports the nosebleed started around midnight and continued until this morning. He was found to have a hemoglobin of 6.6 and hematocrit 19.9 in the Emergency Room. He is being admitted due to severe anemia and need for dialysis. Patient is regularly dialyzed on Sunday, Sunday and Sunday schedule and is due for dialysis today. He denies any dyspnea or chest pain. PAST MEDICAL AND SOCIAL HISTORY: Significant for: 1. History of hypertension. 2. Gout. 3. Gastroesophageal reflux disease. 4. History of hyperlipidemia. 5. History of systolic congestive heart failure with ejection fraction 25%. 6. History of peripheral arterial disease, status post amputation of right foot third and fourth digits. 7. Anemia. 8. Endstage renal disease. PAST SURGICAL HISTORY: 1. Right foot toe amputation. 2. Right knee surgery. 3. Jwne-R-Boyqryik placement. PERSONAL AND SOCIAL HISTORY: Patient reports drinking alcohol but denies any tobacco or illicit drug use. FAMILY HISTORY: Significant for diabetes and breast cancer in his mother. Father's medical problems are unknown and his sister is in good health. ALLERGIES: Patient has no known drug allergies. MEDICATIONS: His home medications include atorvastatin 20 mg daily, Calcitriol 0.25 mcg three times a week, Carvedilol 25 mg b.i.d., Colace 100 mg daily, pantoprazole 20 mg daily, and Crestor 49/51 mg daily and Renvela 800 mg with meals. REVIEW OF SYSTEMS: The patient denies any fever or chills. He reports the nosebleeds started around midnight and he tried everything to stop it, however it continued until this morning when he came to the Emergency Room. Respiratory system is negative for dyspnea or chest pain. Cardiovascular system is significant for hypertension and systolic congestive heart failure with ejection fraction of 25%. GI system is negative for vomiting or diarrhea. system is negative for dysuria or hematuria. He was recently found to have advancing renal failure and required dialysis. Musculoskeletal: Significant for peripheral arterial disease and recent ischemic gangrene of his right fourth toe which has been amputated. Psychosocial system: Negative for depression and anxiety. Hematologic system was significant for severe anemia now. He does have anemia of chronic kidney disease previously. Endocrine system is negative for diabetes or thyroid problems. Psychosocial system is negative for depression or anxiety. Skin is negative for rashes or ulcers. PHYSICAL EXAMINATION: The patient is awake and alert without any acute distress. Temperature is 98.4 degrees Fahrenheit, heart rate is 94 per minute, and respiratory rate is 20 per minute. Blood pressure is 125/75 mmHg and oxygen saturation 100% on room air. Head is atraumatic. Neck is supple and without JVD or thyroid enlargement. Ears, eyes and throat are unremarkable. Right nostril has some old clotted blood but no active bleeding noted. His trachea is midline and there are no abnormal cervical lymph nodes. He has a left internal jugular vein Perm-A-Cath in place. Heart exam reveals regular S1 and S2. Lungs sound clear to auscultation bilaterally. Abdomen is soft and nontender. Bowel sounds are normal. There is no palpable organomegaly. Extremities have no cyanosis or clubbing. Neurologic: He is awake, alert and oriented x3. LABORATORY DATA: WBC count is 17.0, hemoglobin is 6.6 and hematocrit 19.9. Platelets are 270,000. Sodium is 133, potassium 3.7, CO2 23, BUN 72 and creatinine 9.82. Calcium level is 9.4. C-reactive protein is 16.3. Total protein 7.5 and albumin 2.5. INR 1.18. PROBLEMS: 1. Endstage renal disease. Patient is due for his regular hemodialysis today. Will schedule his dialysis for this afternoon. 2. Severe anemia with acute blood loss. Patient will be given 3 units of packed RBCs during dialysis today. His CBCs should be checked tomorrow morning. At this point he has no active bleeding and I do not feel that he needs to have frequent CBC done. 3. Hypertension, blood pressure seems very well-controlled on current medications. No changes will be needed and he should continue with his home antihypertensive medications. 4. Nosebleed. Patient had a nosebleed which was prolonged but has already stopped. I will recommend ENT evaluation for possible cauterization to prevent further bleeding.
--- NOTE | 2020-08-30 13:24 | CR ---
CONSULTATION DATE: 08/30/2020 REASON FOR CONSULTATION: Foot ulcerations. HISTORY OF PRESENT ILLNESS: Will Flood is a 35-year-old male who is seen by myself on previous admission due to toe gangrene, underwent left 4th toe amputation. He was seen approximately two weeks ago in my office. He has been having slow progressive dysvascular changes to his toes. He now has worsening conditions of his right foot as well. He has been seen by [facility] and he had been seen by Dr. Mcmanus of vascular surgery. He notes some worsening of the right foot with some further discoloration to his 2nd toe. PAST MEDICAL HISTORY: Significant for end-stage renal disease on dialysis, peripheral vascular disease, hypertension, gout, GERD, hyperlipidemia. PAST SURGICAL HISTORY: Right knee surgery, right 4th toe amputation. FAMILY HISTORY: Positive for breast cancer, diabetes. SOCIAL HISTORY: Denies alcohol and denies tobacco use. ALLERGIES: NO KNOWN DRUG ALLERGIES. REVIEW OF SYSTEMS: Negative for nausea, vomiting, fever or chills. LABORATORY DATA: Reviewed. White cell count 17, hemoglobin 6.6, ESR 126, CRP 16.3. PHYSICAL EXAMINATION: Lower extremity examination there are distal gangrenous changes to all toes on the left foot into the right 3rd toe. There is some erythema extending from the proximal 3rd toe. ASSESSMENT: 35-year-old male with end-stage renal disease, arterial disease, toe gangrene of vascular nature and possible cellulitis. PLAN: He has been started on empiric antibiotics, agree with Zosyn. I do not believe that the gangrenous changes are infectious in nature; largely seem to be due to his vascular status. It is unclear at 35 what has caused his distal circulation to become so compromised without any known prior medical history. Consideration of autoimmune disease and rheumatoid consultation should be made. MRI has been ordered to rule out any deep space infection or abscess. Barring this would continue antibiotics for two weeks coverage. Should have follow up with Dr. Medel and vascular.
--- NOTE | 2020-08-30 18:59 | CR.PDOC ---
General Date of Consultation: Aug 30, 2020 Consultation REASON FOR CONSULTATION/CHIEF COMPLAINT: Peripheral vascular disease with new right third and fourth toe ulcers HISTORY OF PRESENT ILLNESS: This is a very pleasant 35-year-old gentleman well- known to the vascular surgery service for both his dialysis access and his lower extremity peripheral vascular disease. He is scheduled for a left brachial basilic AV fistula creation next week, and was also scheduled for a right lower extremity arteriogram this Sunday to see if we could improve circulation to help him heal his toe ulcerations. Dr. Bahena is following his lower extremities as well. Since there is concern that his foot is worsening, I definitely feel we should proceed with his arteriogram, even if he is inpatient at the time. We will keep him on the schedule for Sunday regardless. For now, continue local wound care per Dr. Bahena. Hopefully his acute on chronic anemia will show significant improvement by Sunday as well status post workup and transfusions per the hospitalist and nephrology team. His platelet count looks okay, so I think we will be safe to proceed. ALLERGIES: Please see below. HOME MEDICATIONS: Please see below. PAST MEDICAL HISTORY: Hypertension, end-stage renal disease on hemodialysis, peripheral vascular disease, GERD PAST SURGICAL HISTORY: PermCath placement, left lower extremity arteriogram with tibial revascularization intervention FAMILY HISTORY: Heart disease SOCIAL HISTORY: Denies tobacco alcohol or illicit drug use REVIEW OF SYSTEMS: CONSTITUTIONAL: Positive malaise HEENT: Positive nosebleed CARDIOVASCULAR: Denies chest pain RESPIRATORY: Denies shortness of breath GENITOURINARY: Positive end-stage renal disease MUSCULOSKELETAL: Positive healing wounds left lower extremity and new ones right lower extremity GASTROINTESTINAL: Positive for reflux SKIN: Positive wounds bilateral feet NEUROLOGICAL: Positive dizziness PSYCHIATRIC: Denies anxiety or depression ENDOCRINE: Denies diabetes HEMATOLOGIC/LYMPHATIC: Positive anemia. ALLERGIC/IMMUNOLOGIC: Denies PHYSICAL EXAMINATION: VITAL SIGNS: Please see below. GENERAL APPEARANCE: Medically stable no acute distress HEENT: Normocephalic TMI RESPIRATORY: Clear to auscultation CARDIOVASCULAR: Regular rate and rhythm ABDOMEN: Abdomen soft nontender EXTREMITIES: Extremities warm well perfused, dressings intact bilateral feet NEUROLOGICAL: Alert and oriented 3 moves all extremities equally PSYCHIATRIC: Pleasant and cooperative LABORATORY DATA: Please see below. ASSESSMENT/PLAN: This is a very pleasant 35-year-old gentleman well-known to the vascular service for vascular access for dialysis as well as lower extremity peripheral vascular disease 1. Plan for arteriogram Sunday as scheduled, whether the patient is inpatient or outpatient, because the ulcerations on his right foot have somewhat worsened per Dr. Bahena. 2. Continue local wound care bilateral feet per the wound care center and Dr. Bahena. 3. Patient should be on aspirin daily once he is stable from a nosebleed and anemia standpoint. Continue statin. We appreciate the opportunity to participate in the care of this patient. Vital Signs/I&O Vital Signs Date Time Temp Pulse Resp B/P (MAP) Pulse Ox O2 Delivery O2 Flow Rate FiO2 08/30/20 16:48 97.2 69 16 147/86 Room Air 08/30/20 13:30 98 Laboratory Data Labs 24H Laboratory Tests 2 08/30/20 08:28: Immature Granulocyte % (Auto) 0.9, Neutrophils (%) (Auto) 80.1H, Lymphocytes (%) (Auto) 9.8L, Monocytes (%) (Auto) 7.5H, Eosinophils (%) (Auto) 1.2, Basophils (%) (Auto) 0.5, Neutrophils # (Auto) 13.6H, Lymphocytes # (Auto) 1.7, Monocytes # (Auto) 1.3H, Eosinophils # (Auto) 0.2, Basophils # (Auto) 0.1, Nucleated Red Blood Cells % (auto) 0.0, Erythrocyte Sedimentation Rate 126H, Prothrombin Time 15.3H, Prothromb Time International Ratio 1.18, Activated Partial Thromboplast Time 40.1H 08/30/20 08:58: Anion Gap 13, Glomerular Filtration Rate 6.4L, Calcium Level 9.4, Total Bilirubin 0.2, Direct Bilirubin 0.1, Aspartate Amino Transf (AST/SGOT) 10, Alanine Aminotransferase (ALT/SGPT) 21, Alkaline Phosphatase 217H, C-Reactive Protein, Quantitative 16.30H, Total Protein 7.5, Albumin 2.5L, Albumin/Globulin Ratio 0.5, Coronavirus (COVID-19)(PCR) NEGATIVE, Influenza Type A (RT-PCR) NEGATIVE, Influenza Type B (RT-PCR) NEGATIVE, Respiratory Syncytial Virus (PCR) NEGATIVE 08/30/20 13:23: Urine Color YELLOW, Urine Appearance HAZY, Urine pH 5.0, Urine Specific [place] 1.011, Urine Protein 2+H, Urine Glucose (UA) NEGATIVE, Urine Ketones NEGATIVE, Urine Blood 2+H, Urine Nitrite NEGATIVE, Urine Bilirubin NEGATIVE, Urine Urobilinogen 0.2, Urine Leukocyte Esterase 3+H, Urine WBC (Auto) 85H, Urine RBC (Auto) 19H, Urine Hyaline Casts (Auto) 0, Urine Bacteria (Auto) NEGATIVE, Urine Squamous Epithelial Cells 0, Urine Sperm (Auto) CBC/BMP Laboratory Tests 08/30/20 08:28 08/30/20 08:58 Microbiology Microbiology 08/30/20 Urine Culture, Received Pending Allergies Coded Allergies: No Known Drug Allergies (Verified Allergy, Unknown, 08/27/20) Home Medications Scheduled Atorvastatin Calcium (Atorvastatin Calcium) 40 Mg Tablet, 20 MG PO QHS, (Reported) Calcitriol (Calcitriol) 0.25 Mcg Capsule, 0.25 MCG PO 3XW, (Reported) MON/WED/FRI AT 0900 Carvedilol (Carvedilol) 25 Mg Tablet, 25 MG PO BID, (Reported) Docusate Sodium (Stool Softener) 100 Mg Capsule, 100 MG PO DAILY, (Reported) Pantoprazole Sodium (Pantoprazole Sodium) 20 Mg Tablet.dr, 20 MG PO QHS, (Reported) Sacubitril/Valsartan (Entresto 49 mg-51 mg Tablet) 1 Each Tablet, 1 TAB PO BID, (Reported) Sevelamer Carbonate (Renvela) 800 Mg Tablet, 800 MG PO WM, (Reported) KAROLINA JOSE MD Aug 30, 2020 18:59
--- NOTE | 2020-08-30 19:54 | REPVR ---
PROCEDURE INFORMATION: Exam: MR Right Lower Extremity Without Contrast; Forefoot Exam date and time: 08/30/2020 7:37 PM Age: 35 years old Clinical indication: Other: Ulcer; Patient HX: R/O infection, osteo or abscess TECHNIQUE: Imaging protocol: MR of the Right foot without intravenous contrast. Exam focused on the forefoot. COMPARISON: CR Foot, complete 07/12/2020 8:00 AM FINDINGS: Exam is limited due to patient motion. Subcutaneous soft tissue swelling is present over the foot involving the midfoot and forefoot and there is edema within the intrinsic muscles. There is fluid tracking along the flexor digitorum brevis distal myotendinous junction without evidence of tendon disruption. Normal osseous alignment. No periosteal elevation, linear fracture, cortical disruption or bone marrow signal concerning for osteomyelitis. No evidence of septic arthropathy. IMPRESSION: Soft tissue edema involving the foot in the subcutaneous tissues and in the intrinsic muscles of the foot, with fluid signal tracking along the distal myotendinous junction of the flexor digitorum brevis. This suggests the possibility of an infectious or inflammatory tenosynovitis. No underlying evidence of osteomyelitis or septic arthropathy Electronically signed by: Scott Orlando On 08/30/2020 19:54:52 PM
[2020-08-30] MEDS: PANTOPRAZOLE 20 MG TAB PO SCH (20:27)
[2020-08-30] MEDS: ATORVASTATIN 20 MG TAB PO SCH (20:27)
[2020-08-30 21:15] LABS: HEMATOCRIT 22.3 % (42.0-52.0); HEMOGLOBIN 7.6 g/dl (13.5-17.5); MEAN CORPUSCULAR HEMOGLOBIN 29.5 pg (27.0-33.0); MEAN CORPUSCULAR HGB CONC 34.1 g/dl (32.0-36.5); MEAN CORPUSCULAR VOLUME 86.4 fl (80.0-96.0); PLATELET COUNT, AUTOMATED 219 10^3/uL (150-450); RED BLOOD COUNT 2.58 10^6/uL (4.30-6.10)
[2020-08-31] VITALS (14 sets, daily range): BP systolic 132–176; BP diastolic 75–96
[2020-08-31 06:23] LABS: HEMATOCRIT 23.5 % (42.0-52.0); HEMOGLOBIN 7.7 g/dl (13.5-17.5); MEAN CORPUSCULAR HEMOGLOBIN 28.2 pg (27.0-33.0); MEAN CORPUSCULAR HGB CONC 32.8 g/dl (32.0-36.5); MEAN CORPUSCULAR VOLUME 86.1 fl (80.0-96.0); PLATELET COUNT, AUTOMATED 226 10^3/uL (150-450); RED BLOOD COUNT 2.73 10^6/uL (4.30-6.10)
[2020-08-31 06:52] LABS: ALBUMIN 2.3 GM/DL (3.2-5.2); BILIRUBIN,TOTAL 0.3 MG/DL (0.2-1.0); CALCIUM LEVEL 9.6 MG/DL (8.5-10.1); CREATININE FOR GFR 6.5 MG/DL (0.70-1.30); GLOMERULAR FILTRATION RATE 10.3 (>60); POTASSIUM SERUM 3.7 MEQ/L (3.5-5.1); TOTAL PROTEIN 7.9 GM/DL (6.4-8.2)
[2020-08-31] MEDS ORDERED: VANCOMYCIN HCL 1,000 MG, VIAL MATE ADAPTER 1 EACH in D5W 250 ML IV SCH (07:45)
[2020-08-31] MEDS: (RENVELA) SEVELAMER **CARBONate** 800 MG TAB PO SCH ×3 (08:00→18:12)
[2020-08-31] MEDS ORDERED: VANCOMYCIN HCL 1,000 MG, VIAL MATE ADAPTER 1 EACH in D5W 250 ML IV ONE ×2 (09:00→12:00)
[2020-08-31] MEDS: DOCUSATE SODIUM 100MG CAPSULE PO SCH (09:02)
[2020-08-31] MEDS: CARVedilol 12.5 MG TAB PO SCH ×2 (09:02→20:02)
[2020-08-31] MEDS: ENTRESTO 49-51MG TABLET (SACUBITRIL/VALSARTAN) PO SCH ×2 (09:02→20:01)
--- NOTE | 2020-08-31 09:53 | IPNPDOC ---
Text Note Date of Service The patient was seen on 08/31/20. NOTE Vascular surgery. Dr. Mcmanus The patient is a 35-year-old male known to the vascular surgery service for both his dialysis access and his lower extremity peripheral vascular disease. He is scheduled for a left brachial basilic AV fistula creation next week, and was also scheduled for a right lower extremity arteriogram Sunday09/01/20 to see if we could improve circulation to help him heal his toe ulcerations. Dr. Bahena is following his lower extremities as well. Since there is concern that his foot is worsening, plan is to proceed with his arteriogram, even if he is inpatient at the time. NAD, resting in bed. Lungs CTA S1S2 RRR Dressings intact bilateral feet. A/P PAD with right foot wounds. Plan to proceed with arteriogram right lower extremity Sunday09/01/[address] Mcmanus. For now, continue local wound care per Dr. Bahena. IV antibiotics as per hospitalist. Acute on chronic anemia. The patient is S/P PRBC 3 08/30/20 , Hgb 7.7 this AM, PLT 226. Mgmt as per Hospitalist. ESRD/HD. He is scheduled for a left brachial basilic AV fistula creation 09/08/20. VS,Fishbone, I+O VS, Fishbone, I+O Laboratory Tests 08/30/20 20:43 08/31/20 06:02 Vital Signs Date Time Temp Pulse Resp B/P (MAP) Pulse Ox O2 Delivery O2 Flow Rate FiO2 08/31/20 09:02 82 138/76 08/31/20 06:00 98.2 16 99 Room Air I&O- Last 24 Hours up to 6 AM 08/31/20 06:00 Intake Total 2595 ml Output Total 1000 ml Balance 1595 ml Lisa Hernadez Aug 31, 2020 09:53
[2020-08-31] MEDS: PIPERACILLIN/TAZOBACTAM SOD 4.5 GM in D5W MINI-BAG PLUS 50 ML IV SCH ×2 (10:23→20:02)
[2020-08-31 10:38] LABS: HEMATOCRIT 22.6 % (42.0-52.0); HEMOGLOBIN 7.8 g/dl (13.5-17.5)
--- NOTE | 2020-08-31 10:51 | IPNPDOC ---
Date Seen The patient was seen on 08/31/20. Progress Note Subjective patient has no fever, chills overnight. He wants to go home today. Denies any recurrent episodes of epistaxis, chest pain, pressure, tightness, lightheadedness, dizziness, bright red blood per rectum, melena, black tarry stools PHYSICAL EXAMINATION: VS: Please see below CONSTITUTIONAL: No respiratory distress, speaks in full sentences AAO x 3 . HEENT Normocephalic, atraumatic, moist mucous membranesSUPPLE, no JVD, no lymphadenopathy, no carotid bruit . Heart: Regular rate and rhythm, S1S2 normal, no murmurs/rubs/gallops . Lungs: dialysis catheter, left IJ Clear to auscultation bilaterally, no rales/rhonchi/wheezes . Abdomen: BS positive in 4 quadrants, soft, nontender, nondistended, no rebound or guarding, no organomegaly EXT: Left 4th digit wound, covered in extensive bandage. Right foot 3rd and 4th digit ulceration, pain to palpation. LABORATORY DATA: Please see below MICRO: UA pending BCx pending x 2 sets IMAGING: F/u MRI right foot with contrast ASSESSMENT: 35 y/o M with PMH of ESRD on HD, HTN, Gout, b/l lower ext PAD s/p amputation of left foot 4th digit (06/2020) admitted for acute on chronic anemia, right foot third and fourth digit ulceration needing to r/o infection. PLAN: Acute on chronic anemia -Status post 3 units RBC transfusion with persistent hemoglobin of 7.8, will transfuse 2 more units awaiting Hemoccult stool, most likely secondary to chronic renal failure and blood loss secondary to epistaxis Right foot 3rd, 4th digit ulceration, discoloration r/o worsening PAD, infection as cause -On IV Zosyn added IV vancomycin. Dr. Bahena consulted.. White count is still elevated, we'll need to down trend prior to discharge home with oral antibiotics. MRI has no osteomyelitis - Resumed on aspirin per vascular surgery recommendation Left fourth toe wound, nonhealing 2/2 to PAD -Hx of gangrene/cellulitis of left foot s/p 4th toe amputation (07/07/20), treated with o/p levofloxacin -08/04 21 underwent LLE arteriogram with arterial intervention where angioplast of left peroneal artery, left posterior tibial artery, medial plantar artery and left anterior tibial artery was done with starling balloon Outpatient follow-up with the wound care center cabinet installer is been consulted. No plans for further debridement. Rheumatology follow-up as outpatient Epistaxis, resolved ESRD on HD MWF -HD today, to get blood with HD -Recent kidney biopsy showed sclerotic changes of cortex. -Dialysis catheter in place, due to get fistula placed by Dr. Mcmanus on 09/08/20 Nephrology consulted Secondary hyperparathyroidism -Calcitriol home med Hypertension -Stable -C/w current meds HFrEF, not currently in exacerbation -Last echo in 06/2020 showed EF 25% -C/w BB, Entresto -F/u cardiology as o/p Dr. Conley Gout -Stable Obesity -Slightly improved BMI to 30 from 33.4 complicates care. GERD -PPI Disposition patient is anxious to go home, but will need to see a decrease in white count as well as stable hemoglobin with negative Hemoccult stool. VS, I&O, 24H, Fishbone Vital Signs/I&O Vital Signs Date Time Temp Pulse Resp B/P (MAP) Pulse Ox O2 Delivery O2 Flow Rate FiO2 08/31/20 09:02 82 138/76 08/31/20 06:00 98.2 16 99 Room Air I&O- Last 24 Hours up to 6 AM 08/31/20 06:00 Intake Total 2595 ml Output Total 1000 ml Balance 1595 ml Laboratory Data 24H LABS Laboratory Tests 2 08/30/20 13:23: Urine Color YELLOW, Urine Appearance HAZY, Urine pH 5.0, Urine Specific [place] 1.011, Urine Protein 2+H, Urine Glucose (UA) NEGATIVE, Urine Ketones NEGATIVE, Urine Blood 2+H, Urine Nitrite NEGATIVE, Urine Bilirubin NEGATIVE, Urine Urobilinogen 0.2, Urine Leukocyte Esterase 3+H, Urine WBC (Auto) 85H, Urine RBC (Auto) 19H, Urine Hyaline Casts (Auto) 0, Urine Bacteria (Auto) NEGATIVE, Urine Squamous Epithelial Cells 0, Urine Sperm (Auto) 08/30/20 20:43: Nucleated Red Blood Cells % (auto) 0.0, Lactic Acid Level 1.1 08/31/20 06:02: Nucleated Red Blood Cells % (auto) 0.0, Anion Gap 11, Glomerular Filtration Rate 10.3L, Calcium Level 9.6, Total Bilirubin 0.3, Aspartate Amino Transf (AST/SGOT) 11, Alanine Aminotransferase (ALT/SGPT) 18, Alkaline Phosphatase 184H, Total Protein 7.9, Albumin 2.3L, Albumin/Globulin Ratio 0.4 CBC/BMP Laboratory Tests 08/30/20 20:43 08/31/20 06:02 08/31/20 10:22 Microbiology Microbiology 08/30/20 Blood Culture, Received Pending 08/30/20 Blood Culture, Received Pending 08/30/20 Urine Culture - Final, Complete KIET HOOKER MD Aug 31, 2020 10:47
[2020-08-31] MEDS ORDERED: ASPIRIN 81MG ENTERIC TABLET PO ONE (11:00)
--- NOTE | 2020-08-31 14:31 | IPN ---
PROGRESS NOTE DATE: 08/31/2020 SUBJECTIVE: Mr. Flood is seen this morning on his bedside. He was admitted yesterday with prolonged episode of nosebleed and severe anemia. He was dialyzed shortly after admission yesterday and 3 units of packed RBCs transfused. His initial hemoglobin was 6.6 and after 3 units his hemoglobin was noticed to be 7.6 last evening. This morning hemoglobin is still 7.7. Patient denies any further nosebleeds. His main problem is bilateral toe gangrene and ischemic changes. He denies any fever or chills. PHYSICAL EXAMINATION: VITAL SIGNS: Temperature is 96.6 degrees Fahrenheit, heart rate is 86 per minute and respiratory rate 16 per minute, blood pressure 140/87 mmHg and oxygen saturation is 99% on room air. HEAD AND NECK: Head is atraumatic. Neck is supple and without JVD or thyroid enlargement. There is no abnormal cervical lymph nodes. Oral mucosa is moist and healthy. HEART: Heart sounds are regular. LUNGS: Clear to auscultation. Perm-A-Cath on upper chest is without any signs of infection. ABDOMEN: Soft and nontender. Bowel sounds are normal. EXTREMITIES: Without any cyanosis or clubbing. I have looked at his feet today. He has gangrenous and ischemic toes on both feet. NEUROLOGIC: He is awake without any focal deficit. LABORATORY DATA: Today's labs shows a WBC of 14.0, hemoglobin is 7.7 and hematocrit is 23.5, sodium is 135, potassium is 3.7, BUN 47 and creatinine is 6.5. Glucose is 109 and calcium is 9.6. Urinalysis showed 2+ protein and 2+ blood. PROBLEMS: 1. Severe anemia with acute blood loss. Patient has improved slightly with 3 units of packed RBCs transfused yesterday. He is likely to require further transfusion. I feel that he was also quite dehydrated at the time of admission and probably his real hemoglobin was even below 6.6. CBC will be checked again tomorrow and will consider to transfuse him during dialysis. 2. Peripheral vascular disease with bilateral gangrenous toes. Patient reports he has already been seen by Dr. Mcmanus and is going to have an angiogram tomorrow morning. 3. Endstage renal disease. Patient is regularly dialyzed on Sunday, Sunday and Sunday schedule. Will plan dialysis tomorrow after his angiogram. 4. Hypertension. Blood pressure seems well-controlled on current medications. I did not make any changes today. 5. Cellulitis and ischemia of toes. Patient does have some erythema on the feet but I do not believe that he has true cellulitis. He seems to have osteomyelitis of some of his toes as the bones are sticking out. He is currently on antibiotics with Vancomycin and Zosyn.
[2020-08-31] MEDS: **VANCO AFTER HD** MISC XX SCH (15:41)
[2020-08-31] MEDS: ATORVASTATIN 20 MG TAB PO SCH (20:00)
[2020-08-31] MEDS: PANTOPRAZOLE 20 MG TAB PO SCH (20:00)
[2020-08-31 21:29] LABS: HEMATOCRIT 27.7 % (42.0-52.0); HEMOGLOBIN 9.6 g/dl (13.5-17.5)
[2020-09-01] VITALS (7 sets, daily range): BP systolic 143–162; BP diastolic 80–92
[2020-09-01] MEDS ORDERED: ACETAMINOPHEN TAB 650MG DOSE (2X325MG) PO PRN (00:30)
[2020-09-01 06:56] LABS: HEMATOCRIT 29.7 % (42.0-52.0); HEMOGLOBIN 10.1 g/dl (13.5-17.5); MEAN CORPUSCULAR HEMOGLOBIN 29.4 pg (27.0-33.0); MEAN CORPUSCULAR VOLUME 86.3 fl (80.0-96.0); PLATELET COUNT, AUTOMATED 218 10^3/uL (150-450); RED BLOOD COUNT 3.44 10^6/uL (4.30-6.10); WHITE BLOOD COUNT 13.4 10^3/uL (4.0-10.0)
[2020-09-01] MEDS ORDERED: ISOVUE-300 61% 50ML VIAL ONE (06:57)
[2020-09-01] MEDS ORDERED: MIDAZOLAM INJ 2MG/2ML VIAL (J2250 PER 1MG) ONE ×2 (06:57→08:22)
[2020-09-01] MEDS ORDERED: LIDOCAINE 1% MDV 20ML VIAL ONE (06:57)
[2020-09-01] MEDS ORDERED: fentaNYL 100 MCG/2 ML INJECTION (J3010) ONE ×2 (06:57→08:22)
[2020-09-01 07:27] LABS: ALBUMIN 2.4 GM/DL (3.2-5.2); BILIRUBIN,TOTAL 0.4 MG/DL (0.2-1.0); CALCIUM LEVEL 9.3 MG/DL (8.5-10.1); CREATININE FOR GFR 8.47 MG/DL (0.70-1.30); GLOMERULAR FILTRATION RATE 7.6 (>60); POTASSIUM SERUM 3.6 MEQ/L (3.5-5.1); TOTAL PROTEIN 7.6 GM/DL (6.4-8.2); VANCOMYCIN RANDOM 29.3 UG/ML
[2020-09-01] MEDS: (RENVELA) SEVELAMER **CARBONate** 800 MG TAB PO SCH ×3 (08:00→18:44)
[2020-09-01 09:36] LABS: C REACTIVE PROTEIN QUANTITATIV 15.8 MG/DL (0.00-0.30)
--- NOTE | 2020-09-01 09:46 | ROOPDOC ---
[facility] Report Of Operation Report of Operation DATE OF PROCEDURE: 09/01/20 PREPROCEDURE DIAGNOSES: Atherosclerosis of the [place] arteries with pain and wounds right foot POSTPROCEDURE DIAGNOSES: Same PROCEDURE: 1. Ultrasound-guided access left common femoral artery 2. Aortoiliofemoral arteriogram 3. Selection right common femoral and superficial femoral artery and right lower extremity arteriogram 4. Selection right popliteal artery and tibial runoff 5. Selection distal right peroneal artery and arteriogram 6. Cross chronic total occlusion and angioplasty right peroneal artery with 2 x 220 dwight balloon 7. Angioplasty right posterior tibial artery and medial plantar artery with 2 x 220 dwight balloon and 1.5 x 40 coyote balloon 8. Completion arteriograms right lower extremity 9. Mynx closure right common femoral artery SURGEON: Karolina Mcmanus MD ANESTHESIA: Local anesthesia 9 mL lidocaine. Moderate intravenous conscious sedation was supervised by Dr. Mcmanus. The patient was independently monitored by registered nurse under the department of radiology using automated blood pressure, EKG, and pulse oximetry. The detailed sedation record is permanently stored in the hospital information system. The following is a brief sedation record: Start time 08:04, stop time 09:10, Versed 3 mg IV, fentanyl 175 g IV, heparin 4000 units IV. CONTRAST: 55 mL Isovue-300 INDICATION FOR PROCEDURE: This is a very pleasant 35-year-old patient with end- stage renal disease and atherosclerosis of the [place] arteries with right foot wounds and heel pain, followed by Dr. Bahena. He was scheduled for an arteriogram outpatient today, but is inpatient for acute on chronic anemia status post a nosebleed. He has been transfused appropriately, platelets are stable, and I feel it is safe to proceed with the procedure today. I did warn the patient that we need to give some heparin with the procedure, but they did restart his aspirin yesterday and he has not had further nosebleeds, so I'm hopeful that the heparin for the procedure will not be a problem. We will monitor him closely. Risks benefits and alternatives to an arteriogram potential arterial intervention were explained to the patient he is agreeable to proceed. Informed consent was obtained. INTERPRETATION: 1. The distal aorta, common iliac arteries bilaterally, hypogastric arteries bilaterally, and external iliac arteries bilaterally are all widely patent although calcified. The patient has a slightly high and narrow bifurcation of his aorta. There is good runoff into the femoral vessels bilaterally. 2. The right common femoral artery, profunda, SFA and popliteal artery are all widely patent but calcified. No stenoses noted. 3. There is significant tibial disease on the right, similar to what we saw at his last procedure on the left lower extremity. The main runoff to the foot is through the anterior tibial artery and posterior tibial artery, although both are diminutive in size heavily calcified and intermittently very stenotic distally. They do both cross into the pedal vessels, but with limited outflow at the distal foot due to what I suspect to be heavy microvascular disease in the pedal vessels. We see heavy calcification throughout the calf and foot in the entire arterial system. The peroneal artery on the right occludes near its origin and does not reconstitute. 4. After crossing the occlusion in the peroneal artery to the distal calf on the right, we did a quick arteriogram and saw that we had collateral outflow from that point. After angioplasty to that point, there was a marked improvement in flow through the peroneal artery to the distal calf with outflow through the collateral vessels. No extravasation embolization or dissection noted. 5. After initial angioplasty through the right posterior tibial artery into the medial plantar artery, there is still significant residual stenosis at the ankle and the mid calf. Multiple three-minute inflation was performed at higher pressure, then lower pressure for an additional minute, and following this there was a marked improvement inflow through the right posterior tibial artery to the medial plantar artery, but still significant limitation in the microvascular outflow. The microvascular outflow appears to be very diminutive in size and heavily calcified and diseased. Despite repeated angioplasties into the right medial plantar artery, we could not improve outflow from the posterior tibial artery to the degree we had hoped. No extravasation embolization or dissection was noted. REPORT OF OPERATION: Patient was brought to the angiographic suite in stable his bilateral groins were prepped and draped in a sterile fashion. A timeout was performed. Sedation was administered without complication. Local anesthesia was administered to the left groin skin and subcutaneous tissue. A microneedle was used to access the last common femoral artery under ultrasound guidance. A wire was passed through this access needle was removed. A 4 Burkinan sheath was placed and flushed with saline. Glidewire and flushing catheter were advanced into the distal aorta under fluoroscopic guidance. Aortoiliofemoral arteriograms were performed, please interpretation above. We then went up and over the bifurcation with the Glidewire in the glide catheter. This was a bit challenging due to the narrow bifurcation of the aorta. We selected the right common femoral artery and superficial femoral artery. Right lower extremity arteriograms were performed, please interpretation above. We then exchange the sheath for a 6 x 90 cm destination sheath after carefully advancing the wire and the distal right popliteal artery. This was flushed with saline. Heparin with given by our nurses and allowed to circulate. We advanced a 018 Glidewire advantage into the peroneal artery. It took some time, but we were able to cross to the distal calf. We advanced a 2 x 220 dwight balloon over the wire. We then removed the wire and a quick arteriogram confirmed we were in the true lumen, no extravasation, and no outflow from that point other than collaterals. We then angioplastied for three-minute inflation with a 2 x 220 dwight balloon and following this was a marked improvement through the distal calf in the peroneal artery. Next, we directed the wire into the posterior tibial artery and carefully crossed into the medial plantar artery. Angioplasty was done along the length of the vessel for three-minute inflations with a 2 x 220 dwight balloon, and following this there was still significant residual stenosis in the mid calf and at the ankle. Second three-minute inflation was done in this area. Following this, there is a marked improvement inflow in the area of angioplasty, but still very diminutive pedal vessels with heavy calcified disease noted in the microcirculation of the foot. We exchange the wire for an O14 Glidewire advantage and advance this through the right posterior tibial artery into the medial plantar artery and pedal arch and angioplastied along the vessel for three-minute inflations with a 1.5 x 40 coyote balloon. Despite four repeated angioplasties, our completion arteriogram showed a lagging contrast in the foot through the distal posterior tibial artery into the foot due to ongoing microvascular disease. Despite our best efforts, we could not improve the outflow for the posterior tibial artery due to heavy calcification and diminutive size of the vessels. On completion arteriograms, there is 3 vessel runoff to the distal calf, 2 vessel runoff to the foot, but limited flow through the posterior tibial artery into the medial plantar vessels. His distal vascular disease is quite profound for someone his age. He is being worked up for inflammatory and rheumatologic etiologies, but the microcirculation disease does not impair inflammatory, it seems to be more due to calcific plaque. We exchanged the sheath over an O35 Glidewire for short 6 Burkinan sheath and flushed the sheath with saline. A Mynx closure device was deployed with good hemostasis. Pressure was held and sterile dressings were applied. The patient was taken to recovery in stable condition. He tolerated the procedure and the sedation well. ESTIMATED BLOOD LOSS: Approximately 4 mL. COMPLICATIONS: None. PLAN: Ok to resume preop diet and medications. Continue local wound care left foot per Dr Bahena. Patient is on a statin, but needs to also take an aspirin EC 81mg PO daily. No strenuous exercise or lifting greater than 5 pounds for 2 days. We will see the patient back in a week to check his groin access site and his perfusion if he is discharged. We appreciate the opportunity to per despite the care of this patient. KAROLINA MCMANUS MD Sep 01, 2020 09:46
[2020-09-01 09:57] LABS: ERYTHROCYTE SEDIMENTATION RATE 128 mm/hr (0-15)
[2020-09-01] MEDS ORDERED: PERCOCET 5MG/325MG TAB PO PRN (10:00)
[2020-09-01] MEDS: DOCUSATE SODIUM 100MG CAPSULE PO SCH (10:52)
[2020-09-01] MEDS: ENTRESTO 49-51MG TABLET (SACUBITRIL/VALSARTAN) PO SCH ×2 (10:52→21:30)
[2020-09-01] MEDS: ASPIRIN 81MG ENTERIC TABLET PO SCH (10:52)
[2020-09-01] MEDS: CARVedilol 12.5 MG TAB PO SCH ×2 (10:52→21:30)
[2020-09-01] MEDS: PERCOCET 5MG/325MG TAB PO PRN ×2 (10:53→21:31)
[2020-09-01] MEDS: PIPERACILLIN/TAZOBACTAM SOD 4.5 GM in D5W MINI-BAG PLUS 50 ML IV SCH ×2 (10:54→21:30)
--- NOTE | 2020-09-01 11:13 | IPN ---
PROGRESS NOTE DATE: 09/01/2020 SUBJECTIVE: Mr. Flood is seen this morning on his bedside. He just returned from interventional radiology after having his right lower extremity angioplasty. Patient has bilateral gangrenous toes with significant peripheral arterial disease. He also has end-stage renal disease and has been dialysis dependent recently. He was dialyzed on Sunday and his dialysis is due for this afternoon. PHYSICAL EXAMINATION: Temperature 98.5 degrees Fahrenheit, heart rate 72 per minute, respiratory rate 18 per minute, blood pressure 144/80 mmHg, oxygen saturation 99% on room air. He is resting comfortably at present. HEENT: Head is atraumatic. Neck is supple and without any jugular venous distention (JVD). HEART SOUNDS: Regular. LUNGS: Clear to auscultation. ABDOMEN: Soft and nontender. Bowel sounds are normal. EXTREMITIES: Without any cyanosis or clubbing. Toes are ischemic with gangrenous changes bilaterally. LABORATORY DATA: Today's labs show WBC 13.4, hemoglobin 10.1, hematocrit 29.7, platelets 218. Sodium 134, potassium 3.6, CO2 22, BUN 61, creatinine 8.47, glucose 105, calcium 9.5. C-reactive protein (CRP) is elevated at 15.8. PROBLEMS: 1. End-stage renal disease. Patient was dialyzed on Sunday and is due for dialysis today. We will plan to dialyze him this afternoon. 2. Anemia. His anemia has improved following transfusion. He received 2 units of packed red blood cells yesterday. At present, he has no active bleeding and anemia is stable. 3. Hypertension. Blood pressure seems well-controlled on current antihypertensive medications, which will be continued. 4. Peripheral arterial disease with bilateral gangrenous toes. Patient had angioplasty done on his right lower extremity today. He had angioplasty on his left leg in the past. 5. Hyponatremia. He has mild hyponatremia, for which no intervention is indicated at present.
[2020-09-01] MEDS ORDERED: PERCOCET 5MG/325MG TAB PO ONE (13:30)
[2020-09-01] MEDS: PANTOPRAZOLE 20 MG TAB PO SCH (21:31)
[2020-09-01] MEDS: ATORVASTATIN 20 MG TAB PO SCH (21:31)
[2020-09-02] MEDS: PERCOCET 5MG/325MG TAB PO PRN ×4 (05:23→22:25)
[2020-09-02 06:00] VITALS: BP 135/88
[2020-09-02 06:15] LABS: BASO # 0.1 10^3/uL (0.0-0.2); BASO % 0.4 % (0.0-1.0); EOS # 0.2 10^3/uL (0.0-0.5); EOS % 1.6 % (0.0-3.0); HEMATOCRIT 27.2 % (42.0-52.0); HEMOGLOBIN 9.2 g/dl (13.5-17.5); LYMPH # 1.4 10^3/uL (1.5-5.0); LYMPH % 10.7 % (24.0-44.0); MEAN CORPUSCULAR HEMOGLOBIN 29.7 pg (27.0-33.0); MEAN CORPUSCULAR HGB CONC 33.8 g/dl (32.0-36.5); MEAN CORPUSCULAR VOLUME 87.7 fl (80.0-96.0); MONO % 7.3 % (2.0-8.0); NEUTROPHILS # 10.6 10^3/uL (1.5-8.5); NEUTROPHILS % 79.1 % (36.0-66.0); PLATELET COUNT, AUTOMATED 226 10^3/uL (150-450); WHITE BLOOD COUNT 13.4 10^3/uL (4.0-10.0)
[2020-09-02 06:45] LABS: C REACTIVE PROTEIN QUANTITATIV 16.3 MG/DL (0.00-0.30); CALCIUM LEVEL 9.1 MG/DL (8.5-10.1); CREATININE FOR GFR 6.15 MG/DL (0.70-1.30); POTASSIUM SERUM 4.2 MEQ/L (3.5-5.1)
[2020-09-02 07:01] LABS: ERYTHROCYTE SEDIMENTATION RATE 127 mm/hr (0-15)
[2020-09-02] MEDS: ENTRESTO 49-51MG TABLET (SACUBITRIL/VALSARTAN) PO SCH ×2 (09:01→20:36)
[2020-09-02] MEDS: ASPIRIN 81MG ENTERIC TABLET PO SCH (09:01)
[2020-09-02] MEDS: (RENVELA) SEVELAMER **CARBONate** 800 MG TAB PO SCH ×3 (09:02→17:27)
[2020-09-02] MEDS: PIPERACILLIN/TAZOBACTAM SOD 4.5 GM in D5W MINI-BAG PLUS 50 ML IV SCH ×2 (09:02→20:35)
[2020-09-02] MEDS: DOCUSATE SODIUM 100MG CAPSULE PO SCH (09:03)
[2020-09-02] MEDS: CARVedilol 12.5 MG TAB PO SCH ×2 (09:03→20:36)
--- NOTE | 2020-09-02 11:23 | IPN ---
NEPHROLOGY PROGRESS NOTE DATE: 09/02/2020 SUBJECTIVE: The patient is seen this morning at his bedside. He is feeling better today and still has some pain in his right foot. He underwent angioplasty yesterday followed by hemodialysis. The patient denies any dyspnea, chest pain, nausea or vomiting. PHYSICAL EXAMINATION: VITAL SIGNS: Her temperature is 99.3 degrees Fahrenheit, heart rate 88 per minute, respiratory rate 20 per minute, blood pressure 130/87 mm of mercury and oxygen saturation 100%. HEENT: Head is atraumatic. NECK: Supple and without JVD or thyroid enlargement. HEART: Regular. LUNGS: Clear to auscultation. ABDOMEN: Soft and nontender and bowel sounds are normal. EXTREMITIES: Without any cyanosis or clubbing. LABORATORY STUDIES: Today's labs show a white blood cell count of 13.4, hemoglobin 9.2 and hematocrit 27.2. ESR is 127. Sodium 136, potassium 4.2, CO2 24, BUN 34 and creatinine 6.15. Glucose 106 and creatinine 9.1. C-reactive protein is 16.3. PROBLEMS: 1. End-stage renal disease - The patient was dialyzed yesterday and he would be dialyzed again tomorrow. His volume status is well compensated and electrolytes are within normal range. 2. Ischemia and gangrene of toes - The patient had angioplasty of his right lower extremity yesterday and feels that his right foot is less painful today. He remains on antibiotics due to the possibility of osteomyelitis. I have reviewed his prior admission and all workup for vasculitis has been negative so far. At this point the patient will continue to follow up with Vascular Surgery and we will try to optimize his lipids. 3. Acute blood loss anemia The patient had a prolonged nosebleed with severe anemia and has required 5 units of blood transfusions so far. His anemia will need to be monitored as he is still trending down again. 4. Hypertension - blood pressure is well controlled on current medications and no changes are being made today.
--- NOTE | 2020-09-02 11:49 | IPN ---
PROGRESS NOTE DATE: 09/02/2020 SUBJECTIVE: Patient is seen and examined. He states he is having some soreness mostly in his heel, his toes feel okay. Denies new complaints. OBJECTIVE: Vitals: T-max 99.3. Labs reviewed. White blood cell count is 13.4. Hemoglobin is 9.2, ESR is 127, CRP is 16.3. Lower extremity examination: The wounds are essentially unchanged. There are some gangrenous changes to the distal toes. The erythema on the right foot is slightly receded from previous demarcated line. ASSESSMENT: This is a 35-year-old male with dysvascular gangrenous changes to feet and possible cellulitis to his right foot. PLAN: Infectious Disease has been consulted. The redness appears more vascular in nature to me than infectious. The cause of these dysvascular changes in a 35-year-old however, have not yet been determined. I spoke with Dr. Medel who recommends skin biopsy. This can be performed in my office. If he is to be discharged today or tomorrow, he should be set up with me on Sunday and can perform it at that time. He should have wound care continued per Dr. Medel. Will avoid any further amputation of toes unless it becomes essential until ideally more information can be gleaned as to the cause of his small vessel disease.
--- NOTE | 2020-09-02 12:09 | IPN ---
PROGRESS NOTE DATE: 09/01/2020 SUBJECTIVE: Patient was afebrile overnight. No recurrent complaints of epistaxis. He complains of severe pain 8/10 on the right heel. No other issues per nursing overnight. No chills. OBJECTIVE: VITAL SIGNS: Temperature 99.3, pulse 97, respiratory rate 16, blood pressure is 130/87, 100% on room air. GENERAL: The patient is awake, alert and oriented to person, place and time answering questions appropriately. No icterus, jaundice or pallor. No cyanosis or use of respiratory accessory muscles. Left IJ catheter. SKIN: Without erythema or tenderness. HEART: S1 and S2, sinus rhythm. ABDOMEN: Soft, nontender and nondistended. Positive bowel sounds x4 quadrants. EXTREMITIES: Bilateral gangrenous toes. Erythema is improving in the right dorsal foot, less than yesterday. LABORATORY DATA: White count is 13.4, hemoglobin is 9.2, hematocrit 27, platelet count of 26,000, sodium 136, potassium 4.2, chloride 102, bicarbonate 24, BUN 34, creatinine is 6.15. Glucose is 106. C-reactive protein is 16.3. Procalcitonin 2.47. ESR 127. Two sets of blood cultures are negative. MRI of the foot: Soft tissue edema involving the foot and the subcutaneous tissue and in the intrinsic muscles of the foot with fluid signal tracking along the distal myotendinous junction of the flexor digitorum brevis suggesting the possibility of infectious or inflammatory tenosynovitis of the right foot. No underlying osteomyelitis or septic arthropathy. ASSESSMENT AND PLAN: This is a 35-year-old male admitted on 08/30/20 with a history of endstage renal disease on maintenance dialysis on Sunday, Sunday and Sunday, peripheral arterial disease, hypertension, gout, reflux, hyperlipidemia, right foot third and fourth digit chronic ulceration, heart failure, systolic dysfunction, EF of 25%, found to have gangrenous toes and sent to the Emergency Room for IV antibiotics and revascularization. The patient underwent angioplasty of the right peroneal artery, right posterior tibial artery and medial plantar artery on 09/01/2020 and had been kept on broad-spectrum antibiotics with no significant change in leukocytosis but remained afebrile but with still elevated CRP, sed rate and procalcitonin levels. The patient had undergone maintenance dialysis managed by Dr. Howe. Current issues are as follows: 1. Bilateral gangrene, right foot third and fourth digit ulcerations status post revascularization with angioplasty with right peroneal, right posterior tibial artery by Dr. Mcmanus, currently on aspirin 81 mg daily. Still on broad-spectrum antibiotics. ID will be consulted to assist in management. 2. Anemia requiring 5 units of RBC transfusion with no overt GI bleed Patient has some epistaxis which resolved, currently on aspirin for peripheral arterial disease. 3. Endstage renal disease on maintenance dialysis on Sunday, Sunday and Sunday managed by Nephrology. 4. Secondary hyperparathyroidism, chronic. 5. Hypertension, controlled on current medications. 6. Systolic congestive heart failure, compensated. Ejection fraction of 25% on Entresto and beta kim, on maintenance dialysis for fluid management.
[2020-09-02 14:00] VITALS: BP 138/84
[2020-09-02] MEDS: PANTOPRAZOLE 20 MG TAB PO SCH (20:35)
[2020-09-02] MEDS: ATORVASTATIN 20 MG TAB PO SCH (20:36)
[2020-09-02 22:00] VITALS: BP 149/85
[2020-09-03 06:00] VITALS: BP 133/68
[2020-09-03] MEDS: ENTRESTO 49-51MG TABLET (SACUBITRIL/VALSARTAN) PO SCH ×2 (06:06→21:01)
[2020-09-03] MEDS: DOCUSATE SODIUM 100MG CAPSULE PO SCH (06:06)
[2020-09-03] MEDS: ASPIRIN 81MG ENTERIC TABLET PO SCH (06:06)
[2020-09-03] MEDS: CARVedilol 12.5 MG TAB PO SCH ×2 (06:07→21:00)
[2020-09-03 06:38] LABS: BASO # 0.1 10^3/uL (0.0-0.2); BASO % 0.5 % (0.0-1.0); EOS # 0.3 10^3/uL (0.0-0.5); EOS % 2.2 % (0.0-3.0); HEMOGLOBIN 8.5 g/dl (13.5-17.5); LYMPH # 1.4 10^3/uL (1.5-5.0); LYMPH % 10.4 % (24.0-44.0); MEAN CORPUSCULAR HEMOGLOBIN 28.9 pg (27.0-33.0); MEAN CORPUSCULAR HGB CONC 32.7 g/dl (32.0-36.5); MEAN CORPUSCULAR VOLUME 88.4 fl (80.0-96.0); MONO # 0.9 10^3/uL (0.0-0.8); MONO % 6.6 % (2.0-8.0); NEUTROPHILS # 10.3 10^3/uL (1.5-8.5); NEUTROPHILS % 79.6 % (36.0-66.0); PLATELET COUNT, AUTOMATED 208 10^3/uL (150-450); RED BLOOD COUNT 2.94 10^6/uL (4.30-6.10)
[2020-09-03 07:14] LABS: C REACTIVE PROTEIN QUANTITATIV 15.8 MG/DL (0.00-0.30); CALCIUM LEVEL 8.9 MG/DL (8.5-10.1); CREATININE FOR GFR 8.93 MG/DL (0.70-1.30); GLOMERULAR FILTRATION RATE 7.2 (>60); POTASSIUM SERUM 3.7 MEQ/L (3.5-5.1); VANCOMYCIN RANDOM 18.7 UG/ML
[2020-09-03 07:17] LABS: ERYTHROCYTE SEDIMENTATION RATE 126 mm/hr (0-15)
[2020-09-03] MEDS: (RENVELA) SEVELAMER **CARBONate** 800 MG TAB PO SCH ×3 (09:10→17:01)
--- NOTE | 2020-09-03 11:38 | IPN ---
PROGRESS NOTE DATE: 09/03/2020 SUBJECTIVE: The patient denies any fever or chills. Still complains of pain in the right heel rated at 4/10 when he is not moving around, tolerating his Percocet two tablets every four hours as needed. No other issues per nursing. He continues to be anemic with decreasing hemoglobin from 10 to 9.2 to 8.5 today, but denies any signs of active GI bleed without hematemesis, coffee-ground emesis, bright red blood per rectum, melena, or black tarry stools. No other issues per nursing overnight. OBJECTIVE: VITAL SIGNS: Temperature 98.1, pulse 78, respiratory rate 18, blood pressure 133/68, 95% on room air. GENERAL: Awake, alert, and oriented x3, answering questions appropriately. Disheveled. HEENT: Dry mucous membranes. NECK: No JVD. No thyromegaly. LUNGS: Diminished, but clear to auscultation. HEART: S1, S2. Sinus rhythm. ABDOMEN: Soft, nontender, and nondistended with positive bowel sounds. EXTREMITIES: Positive edema with bilateral gangrenous toes. SKIN: Warm and dry. Less erythema on the dorsum of the right foot. LABORATORY DATA: White count 13, previous white count 13.4, hemoglobin 8.5, hematocrit 26, platelet count 208,000, 79% neutrophils. Sodium 137, potassium 3.7, chloride 102, bicarb 23, BUN 47, creatinine 8.93, glucose 173. C-reactive protein 15.8. Procalcitonin of 2.47. MICROBIOLOGY: Blood cultures negative. Urine culture negative. IMAGING DATA: Foot MRI reviewed. ASSESSMENT AND PLAN: This is a 35-year-old male with history of end-stage renal disease on maintenance dialysis Sunday, Sunday, and Sunday; peripheral arterial disease, hypertension, gout, reflux, and hyperlipidemia with chronic right foot third and fourth digit chronic ulceration turned gangrenous, and sent to the emergency room for management. The patient has a history of systolic heart failure with ejection fraction (EF) of 25%. 1. Bilateral toe gangrene. MRI shows no osteomyelitis. Possible tenosynovitis. Currently on broad-spectrum antibiotics of intravenous (IV) vancomycin and Zosyn renally dosed with still elevated procalcitonin level of 2.47. The patient's white count has not improved although he is afebrile. Will continue antibiotics for now. Dr. Briceno is not available until Sunday, and will discuss the case with her if he can be discharged on oral antibiotics once the CRP and procalcitonin have a downward trend. 2. Peripheral arterial disease. The patient had revascularization of the right peroneal posterior tibial artery by vascular surgery, currently on aspirin with no recurrent episodes of epistaxis. 3. Anemia with persistent decrease in hemoglobin and hematocrit despite no signs of active gastrointestinal (GI) bleed or epistaxis. The patient has received a total of 5 units of red blood cells (RBC) transfusion. 4. End-stage renal disease on maintenance dialysis managed by nephrology. 5. Secondary hyperparathyroidism. 6. Chronic hypertension controlled on current medications. 7. Systolic heart failure compensated with ejection fraction (EF) of 25% on maintenance dialysis managed by nephrology. MTDD
[2020-09-03] MEDS: PERCOCET 5MG/325MG TAB PO PRN ×3 (12:53→21:03)
[2020-09-03] MEDS: PIPERACILLIN/TAZOBACTAM SOD 4.5 GM in D5W MINI-BAG PLUS 50 ML IV SCH ×2 (12:53→21:01)
[2020-09-03 14:00] VITALS: BP 144/95
[2020-09-03] MEDS: **VANCO AFTER HD** MISC XX SCH (15:11)
[2020-09-03] MEDS ORDERED: VANCOMYCIN HCL 1,000 MG, VIAL MATE ADAPTER 1 EACH in D5W 250 ML IV SCH (16:00)
[2020-09-03] MEDS: PANTOPRAZOLE 20 MG TAB PO SCH (21:01)
[2020-09-03] MEDS: ATORVASTATIN 20 MG TAB PO SCH (21:01)
--- NOTE | 2020-09-03 21:07 | IPNPDOC ---
Date Seen The patient was seen on 09/03/20. Progress Note Patient seen and examined. Left groin access site clean dry and intact. No bruising or hematoma present. Sheath site is well-healed. Right lower extremity perfusion is intact although microvascular disease limits outflow at the foot. The patient says his right foot feels a little bit better, but still he has pain at the heel and the toes. He is worried that he is going to lose more toes on the right foot similar to what happened on the left. Dr. Bahena will evaluate. The patient is concerned about why all of this is happening, and I assured him that we are also very concerned. There was initial thoughts that the patient may have a vasculitis resulting in his severe distal upper and lower extremity vascular disease, but what I see on ultrasound and imaging is heavily calcified plaque. It is more the type of narrowing and plaque consistent with diabetics and end-stage renal disease. The patient has not had end-stage renal disease long enough to have this be the only etiology however. And he is not a diabetic. I do not see the typical soft inflammatory thickening of the arteries and tapering of the arterial tree consistent with vasculitis on ultrasound or arteriogram. So far his workup for vasculitis has been negative. It is a bit unclear to me why he has such severe upper and lower extremity distal peripheral vascular disease at such a young age. Although his blood cultures are negative, I think it may be worthwhile to revisit the consideration for possible endocarditis. His right foot started with a dark discoloration under the toenail, and then progressed to what we see today with fairly rapidly. I don't see splinter hemorrhages on his fingernails, but we will watch for this. We might consider doing another echo just to make sure we are not dealing with BCNE. I think it will be helpful for Dr. Briceno to weigh in on Sunday, as she may have further insight. I also spoke to the patient about his fistula creation planned for next week. We will keep him on the schedule, and we are happy to do his case whether he is inpatient or outpatient, but I did discuss with the p atient that if he has further amputation of the right foot, or other procedures, and is feeling a bit tired or overwhelmed, we can certainly postpone his fistula creation if needed. His PermCath is working well and the fistula is not emergent, although we would like to get it done as soon as we are able. We will talk again next week closer to surgery and he can let me know how he feels. He may need an updated Covid test prior to surgery. His outpatient Covid test was scheduled for today. We will continue to follow. We appreciate the opportunity to participate in the care of this patient. VS, I&O, 24H, Fishbone Vital Signs/I&O Vital Signs Date Time Temp Pulse Resp B/P (MAP) Pulse Ox O2 Delivery O2 Flow Rate FiO2 09/03/20 17:40 18 09/03/20 14:00 98.2 86 144/95 (111) 94 Room Air I&O- Last 24 Hours up to 6 AM 09/03/20 05:59 Intake Total 760 ml Output Total 0 ml Balance 760 ml Laboratory Data 24H LABS Laboratory Tests 2 09/03/20 06:21: Immature Granulocyte % (Auto) 0.7, Neutrophils (%) (Auto) 79.6H, Lymphocytes (%) (Auto) 10.4L, Monocytes (%) (Auto) 6.6, Eosinophils (%) (Auto) 2.2, Basophils (%) (Auto) 0.5, Neutrophils # (Auto) 10.3H, Lymphocytes # (Auto) 1.4L, Monocytes # (Auto) 0.9H, Eosinophils # (Auto) 0.3, Basophils # (Auto) 0.1, Nucleated Red Blood Cells % (auto) 0.0, Erythrocyte Sedimentation Rate 126H, Anion Gap 12, Glomerular Filtration Rate 7.2L, Calcium Level 8.9, C-Reactive Protein, Quantitative 15.80H, Random Vancomycin Level 18.7 CBC/BMP Laboratory Tests 09/03/20 06:21 Microbiology Microbiology 08/30/20 Blood Culture - Preliminary, Resulted No Growth after 72 hours. All specime... 08/30/20 Blood Culture - Preliminary, Resulted No Growth after 72 hours. All specime... 08/30/20 Urine Culture - Final, Complete KAROLINA JOSE MD Sep 03, 2020 21:07
[2020-09-03 22:00] VITALS: BP 145/84
[2020-09-04] MEDS: PERCOCET 5MG/325MG TAB PO PRN ×5 (01:32→21:04)
[2020-09-04 06:00] VITALS: BP 148/81
[2020-09-04 06:06] LABS: BASO # 0.1 10^3/uL (0.0-0.2); BASO % 0.7 % (0.0-1.0); EOS # 0.4 10^3/uL (0.0-0.5); EOS % 3.2 % (0.0-3.0); LYMPH # 1.6 10^3/uL (1.5-5.0); LYMPH % 11.5 % (24.0-44.0); MEAN CORPUSCULAR HEMOGLOBIN 29.7 pg (27.0-33.0); MEAN CORPUSCULAR HGB CONC 33.3 g/dl (32.0-36.5); MEAN CORPUSCULAR VOLUME 89.1 fl (80.0-96.0); MONO # 1.1 10^3/uL (0.0-0.8); MONO % 8.1 % (2.0-8.0); NEUTROPHILS # 10.3 10^3/uL (1.5-8.5); NEUTROPHILS % 75.8 % (36.0-66.0); PLATELET COUNT, AUTOMATED 225 10^3/uL (150-450); RED BLOOD COUNT 3.03 10^6/uL (4.30-6.10); WHITE BLOOD COUNT 13.6 10^3/uL (4.0-10.0)
[2020-09-04 06:28] LABS: C REACTIVE PROTEIN QUANTITATIV 16.1 MG/DL (0.00-0.30); CALCIUM LEVEL 9.2 MG/DL (8.5-10.1); CREATININE FOR GFR 6.46 MG/DL (0.70-1.30); GLOMERULAR FILTRATION RATE 10.4 (>60); POTASSIUM SERUM 4.1 MEQ/L (3.5-5.1)
[2020-09-04 07:06] LABS: ERYTHROCYTE SEDIMENTATION RATE 127 mm/hr (0-15)
[2020-09-04] MEDS: PIPERACILLIN/TAZOBACTAM SOD 4.5 GM in D5W MINI-BAG PLUS 50 ML IV SCH ×2 (08:39→21:05)
[2020-09-04] MEDS: ENTRESTO 49-51MG TABLET (SACUBITRIL/VALSARTAN) PO SCH ×2 (08:39→21:05)
[2020-09-04] MEDS: (RENVELA) SEVELAMER **CARBONate** 800 MG TAB PO SCH ×3 (08:40→16:54)
[2020-09-04] MEDS: DOCUSATE SODIUM 100MG CAPSULE PO SCH (08:40)
[2020-09-04] MEDS: ASPIRIN 81MG ENTERIC TABLET PO SCH (08:40)
[2020-09-04] MEDS: CARVedilol 12.5 MG TAB PO SCH ×2 (08:41→21:05)
[2020-09-04] MEDS ORDERED: MORPHINE 2 MG/ML 1ML VIAL (J2270) IV PRN (09:00)
--- NOTE | 2020-09-04 12:52 | IPN ---
PROGRESS NOTE DATE: 09/04/2020 SUBJECTIVE: Patient was seen and examined at the bedside today morning. He is afebrile, hemodynamically stable. He was dialyzed yesterday. He tolerated the hemodialysis procedure well. He still reports a moderate amount of pain in bilateral lower extremities gangrenous sites, and he is awaiting evaluation by podiatry. OBJECTIVE: Vital signs: Temperature is 96.9 degrees Fahrenheit, blood pressure 147/93, pulse is 85, respiratory rate of 17, saturating 94% on room air. Intake and output: Urine output recorded yesterday is 300 mL. Ultrafiltration with hemodialysis was 1 liter. Weight in the bed scale not available. PHYSICAL EXAMINATION: GENERAL: Patient is awake, alert, oriented times three, lying in bed. Mild painful distress. HEAD AND NECK: Extraocular muscles intact. Pupils equally round and reactive to light. Mucous membranes are moist. Neck is supple. He has a tunneled hemodialysis catheter. CARDIOVASCULAR: S1, S2, regular rate. No significant edema of the bilateral lower extremities. RESPIRATORY: Chest is clear to auscultation bilaterally. Bilateral equal air entry. No rales or rhonchi. ABDOMEN: Soft, obese. Positive bowel sounds. Nontender. No organomegaly. MUSCULOSKELETAL: Patient has gangrene of all toes on the left foot with an open ulcer at the left 4th toe amputation site, and he has a right 3rd and 4th toe gangrene as well. CENTRAL NERVOUS SYSTEM: No focal neurologic deficit. Power is 5/5 in all extremities. LABORATORY REVIEW: CBC showed a WBC 13.6, hemoglobin is 9, platelets are 225. BMP showed sodium 135, potassium 4.1, chloride 100, bicarbonate 23, BUN 28, creatinine is 6.4. C-reactive protein is 16.1. Microbiology: Blood cultures are all pending at this time. CURRENT INPATIENT MEDICATIONS: Patient's medications were all reviewed by myself. He is currently on IV vancomycin and Zosyn. No significant change in the medications today as compared with yesterday. ASSESSMENT AND PLAN: 1. End-stage renal disease. Patient was dialyzed yesterday. He has Sunday, Sunday, Sunday dialysis. Next dialysis will be done on Sunday as per his regular schedule. 2. Peripheral vascular disease and gangrene of the toes. Patient is currently on IV vancomycin and Zosyn. Vascular surgery and podiatry are on board. He will most likely need amputation of the left foot toes. All the vasculitis workup done during previous admission has been negative. 3. Hypertension with hypertensive heart disease. Continue current dose of Coreg. Volume status is optimized with dialysis. 4. Dilated cardiomyopathy. Patient is on Coreg and Entresto. Volume status is optimal. Blood pressures are stable. 5. Chronic kidney disease and mineral bone disease. Continue current dose of Renvela. 6. Anemia and end-stage renal disease and recent blood loss. Hemoglobin level is 9, which is improving. He is status post 5 units of packed red blood cells (PRBC) transfusion. I am going to start him with Aranesp during dialysis as well.
--- NOTE | 2020-09-04 13:45 | IPN ---
PROGRESS NOTE DATE: 09/04/2020 SUBJECTIVE: The patient remains afebrile with no chills. Continues to complain of 10/10 pain of right heel, alleviated with Percocet two tablets every four hours but with lingering breakthrough pain. The patient has not had any chills. White count is still elevated as well as procalcitonin level. Dr. Shereen Briceno, infectious disease, is not available until Sunday. The patient is continued on broad spectrum antibiotics. OBJECTIVE: VITAL SIGNS: Temperature 96.8, pulse 85, respiratory rate 18, blood pressure 143/93, 94% on room air. GENERAL: Awake, alert, and oriented to person, place and time, disheveled. HEENT: Dry mucous membranes, poor dentition. NECK: No JVD. No thyromegaly. LUNGS: Clear to auscultation. No wheezes, rhonchi or rales. HEART: S1, S2. Sinus rhythm. ABDOMEN: Soft, nontender, and non-distended. EXTREMITIES: The patient has decreasing erythema on the dorsum of the right foot; necrotic gangrenous toes are noted but well delineated. Left lower extremity has all the toes gangrenous with marked eschar. LABORATORY DATA: White count 13.6, hemoglobin 9, hematocrit 27, platelet count 225. Sodium 135, potassium 4, chloride 100, bicarb 23, BUN 28, creatinine 6.46, glucose 86. Procalcitonin of 2.47. ASSESSMENT AND PLAN: This is a 35-year-old male with history of end-stage renal disease on maintenance dialysis Sunday, Sunday, and Sunday; peripheral arterial disease, hypertension, gout, reflux, and hyperlipidemia, chronic ulceration turned gangrenous bilateral toes on bilateral feet. The patient was admitted with history of systolic heart failure with EF of 25%. IMPRESSION: 1. Peripheral arterial disease with bilateral gangrene. At this time the patient is kept on IV antibiotics, deferred to podiatry for amputation, transmetatarsal potentially on the left as the patient's white count may be due to inflammatory response. Procalcitonin, however, was quite elevated but we will continue to track this. 2. Peripheral arterial disease. The patient had been revascularized and followed by vascular surgery, currently on anticoagulation. 3. Anemia: The patient has required 5 units of RBC transfusion. No overt GI bleed or recurrent epistaxis. 4. End-stage renal disease on maintenance dialysis managed by nephrology. 5. Secondary hyperparathyroidism, chronic. 6. Systolic heart failure, EF of 25% on maintenance dialysis. MTDD
[2020-09-04 14:00] VITALS: BP 112/77
[2020-09-04] MEDS: **VANCO AFTER HD** MISC XX SCH (16:00)
[2020-09-04] MEDS: PANTOPRAZOLE 20 MG TAB PO SCH (21:05)
[2020-09-04] MEDS: ATORVASTATIN 20 MG TAB PO SCH (21:05)
[2020-09-04 22:00] VITALS: BP 118/67
[2020-09-05] MEDS: PERCOCET 5MG/325MG TAB PO PRN ×4 (01:28→20:23)
[2020-09-05 06:00] VITALS: BP 115/87
[2020-09-05 06:05] LABS: BASO # 0.1 10^3/uL (0.0-0.2); BASO % 0.5 % (0.0-1.0); EOS # 0.4 10^3/uL (0.0-0.5); EOS % 3.1 % (0.0-3.0); HEMATOCRIT 27.7 % (42.0-52.0); HEMOGLOBIN 9.1 g/dl (13.5-17.5); LYMPH # 1.3 10^3/uL (1.5-5.0); LYMPH % 11.3 % (24.0-44.0); MEAN CORPUSCULAR HEMOGLOBIN 29.2 pg (27.0-33.0); MEAN CORPUSCULAR HGB CONC 32.9 g/dl (32.0-36.5); MEAN CORPUSCULAR VOLUME 88.8 fl (80.0-96.0); MONO # 0.8 10^3/uL (0.0-0.8); MONO % 7.3 % (2.0-8.0); NEUTROPHILS # 8.9 10^3/uL (1.5-8.5); NEUTROPHILS % 77.5 % (36.0-66.0); PLATELET COUNT, AUTOMATED 245 10^3/uL (150-450); RED BLOOD COUNT 3.12 10^6/uL (4.30-6.10); WHITE BLOOD COUNT 11.5 10^3/uL (4.0-10.0)
[2020-09-05 06:57] LABS: C REACTIVE PROTEIN QUANTITATIV 15.9 MG/DL (0.00-0.30); CALCIUM LEVEL 8.9 MG/DL (8.5-10.1); CREATININE FOR GFR 8.73 MG/DL (0.70-1.30); GLOMERULAR FILTRATION RATE 7.3 (>60); POTASSIUM SERUM 3.9 MEQ/L (3.5-5.1)
[2020-09-05 06:59] LABS: ERYTHROCYTE SEDIMENTATION RATE 126 mm/hr (0-15)
[2020-09-05] MEDS: (RENVELA) SEVELAMER **CARBONate** 800 MG TAB PO SCH ×3 (09:13→18:28)
[2020-09-05] MEDS: ENTRESTO 49-51MG TABLET (SACUBITRIL/VALSARTAN) PO SCH ×2 (09:14→20:22)
[2020-09-05] MEDS: ASPIRIN 81MG ENTERIC TABLET PO SCH (09:14)
[2020-09-05] MEDS: DOCUSATE SODIUM 100MG CAPSULE PO SCH (09:14)
[2020-09-05] MEDS: PIPERACILLIN/TAZOBACTAM SOD 4.5 GM in D5W MINI-BAG PLUS 50 ML IV SCH ×2 (09:16→20:23)
[2020-09-05] MEDS: CARVedilol 12.5 MG TAB PO SCH ×2 (09:16→20:25)
--- NOTE | 2020-09-05 10:25 | IPNPDOC ---
Date Seen The patient was seen on 09/05/20. Progress Note Subjective: Patient has no new complaints. Continues to have pain in the right heel, better with Percocet as needed every 4 hours. No fever, chills overnight Objective: Physical exam: Vital signs: See below GENERAL: No use of respiratory accessory muscles. No pallor, icterus or jaundice Awake, alert, and oriented to person, place and time, disheveled. , Answering questions appropriately HEENT: Dry mucous membranes, poor dentition. NECK: No JVD. No thyromegaly. LUNGS: Clear to auscultation. No wheezes, rhonchi or rales. HEART: S1, S2. Sinus rhythm. ABDOMEN: Soft, nontender, and non-distended. EXTREMITIES: The patient has decreasing erythema on the dorsum of the right foot; necrotic gangrenous toes are noted but well delineated. Left lower extremity has all the toes gangrenous with marked eschar. LABORATORY DATA: See below , Microbiology: See below , Imaging studies: See below ASSESSMENT AND PLAN: This is a 35-year-old male with history of end-stage renal disease on maintenance dialysis Sunday, Sunday, and Sunday; peripheral arterial disease, hypertension, gout, reflux, and hyperlipidemia, chronic ulceration turned gangrenous bilateral toes on bilateral feet. The patient was admitted with history of systolic heart failure with EF of 25%. IMPRESSION: Peripheral arterial disease with bilateral gangrene. At this time the patient is kept on IV antibiotics, deferred to podiatry for amputation, transmetatarsal potentially on the left as the patient's white count may be due to inflammatory response. Procalcitonin, however, was quite elevated but we will continue to track this. Patient's embolic phenomenon to his bilateral toes Raises a concern for endocarditis versus rheumatologic disease. Previous workup was negative for RONY. We'll consult rheumatology in the morning. Repeat 2-D echocardiogram. If concerning findings, may need Transesophageal echo. ID consulted for Sunday Peripheral arterial disease. The patient had been revascularized and followed by vascular surgery, currently on anticoagulation. Anemia: The patient has required 5 units of RBC transfusion. No overt GI bleed or recurrent epistaxis. Given erythropoietin by nephrology End-stage renal disease on maintenance dialysis managed by nephrology. Secondary hyperparathyroidism, chronic. Systolic heart failure, EF of 25% on maintenance dialysis. VS, I&O, 24H, Fishbone Vital Signs/I&O Vital Signs Date Time Temp Pulse Resp B/P (MAP) Pulse Ox O2 Delivery O2 Flow Rate FiO2 09/05/20 09:16 75 162/98 09/05/20 09:14 18 Room Air 09/05/20 06:00 98.0 97 I&O- Last 24 Hours up to 6 AM 09/05/20 06:00 Intake Total 1350 ml Output Total 100 ml Balance 1250 ml Laboratory Data 24H LABS Laboratory Tests 2 09/05/20 05:42: Immature Granulocyte % (Auto) 0.3, Neutrophils (%) (Auto) 77.5H, Lymphocytes (%) (Auto) 11.3L, Monocytes (%) (Auto) 7.3, Eosinophils (%) (Auto) 3.1H, Basophils (%) (Auto) 0.5, Neutrophils # (Auto) 8.9H, Lymphocytes # (Auto) 1.3L, Monocytes # (Auto) 0.8, Eosinophils # (Auto) 0.4, Basophils # (Auto) 0.1, Nucleated Red Blood Cells % (auto) 0.0, Erythrocyte Sedimentation Rate 126H, Anion Gap 9, Glomerular Filtration Rate 7.3L, Calcium Level 8.9, C-Reactive Protein, Quantitative 15.90H CBC/BMP Laboratory Tests 09/05/20 05:42 Microbiology Microbiology 08/30/20 Blood Culture - Final, Complete NO GROWTH AFTER 5 DAYS 08/30/20 Blood Culture - Final, Complete NO GROWTH AFTER 5 DAYS 08/30/20 Urine Culture - Final, Complete KIET HOOKER MD Sep 05, 2020 10:25
--- NOTE | 2020-09-05 11:55 | IPN ---
NEPHROLOGY PROGRESS NOTE DATE: 09/05/2020 SUBJECTIVE: Patient was seen and examined at the bedside today morning. He continues to be on intravenous (IV) antibiotics. He still reports mild persistent in the bilateral lower extremities. He is otherwise afebrile. Tomorrow is patient's day of dialysis. OBJECTIVE: VITAL SIGNS: Temperature 98 degrees Fahrenheit, blood pressure 115/87, pulse 76, respiratory rate 18, saturating 97% on room air. INTAKE AND OUTPUT: Urine output recorded as 100 mL. Weight in the bed scale is not available. PHYSICAL EXAMINATION: GENERAL: Patient is awake, alert, oriented times three, laying in bed, mild painful distress. HEAD AND NECK EXAM: Extraocular muscles intact. Pupils equally round and reactive to light. Mucous membranes are moist. Neck is supple. He has a tunneled hemodialysis catheter. CARDIOVASCULAR: S1, S2. Regular rate. Trace edema of the bilateral lower extremities. RESPIRATORY: Chest is clear to auscultation bilaterally. Bilateral equal air entry. No rales or rhonchi. ABDOMEN: Soft. Obese. Positive bowel sounds. Nontender. No organomegaly. MUSCULOSKELETAL: He has gangrene of all toes of the left foot and previously, left fourth toe has been amputated during previous hospitalization and is right third and fourth toe are gangrene, as well. CENTRAL NERVOUS SYSTEM (SORTER OPERATOR): No focal deficits. Power is 5/5 in bilateral upper extremities. LABORATORY REVIEW: CBC showed a WBC 11.5, hemoglobin 9.1, platelets are 245. BMP showed sodium 136, potassium 3.9, chloride 100, bicarbonate 27, BUN 44, creatinine 8.7. C-reactive protein 15.9, which is still elevated. MICROBIOLOGY: All the cultures are negative so far. CURRENT INPATIENT MEDICATIONS: Patient's medications were all reviewed by myself. No significant change in the medications today as compared with yesterday. ASSESSMENT AND PLAN: 1. End-stage renal disease. Patient will be dialyzed according to his regular schedule tomorrow morning. Ultrafiltration goal will be around 2 liters. 2. Peripheral vascular disease. Patient was seen by vascular surgery. Vasculitis workup has been negative. He has gangrene of the toes, which possibly will need to be amputated. Podiatry is on board. 3. Hypertension with hypertensive heart disease. Continue Coreg. Volume status is optimized. 4. Dilated cardiomyopathy. Continue Coreg and Entresto. Repeat echocardiogram is being done to rule out thrombus in the left ventricle which might be causing thromboembolic phenomena in lower extremities. 5. Chronic kidney disease/mineral bone disease. Continue current dose of Renvela. 6. Anemia in end-stage renal disease. Aranesp to be started with dialysis. He is status post 5 units of packed red blood cells transfusion.
[2020-09-05] MEDS: **VANCO AFTER HD** MISC XX SCH (13:09)
[2020-09-05 14:00] VITALS: BP 122/64
[2020-09-05] MEDS: ATORVASTATIN 20 MG TAB PO SCH (20:22)
[2020-09-05] MEDS: PANTOPRAZOLE 20 MG TAB PO SCH (20:22)
[2020-09-05 22:00] VITALS: BP 150/89
[2020-09-06] MEDS: PERCOCET 5MG/325MG TAB PO PRN ×4 (01:34→21:57)
[2020-09-06] MEDS: ENTRESTO 49-51MG TABLET (SACUBITRIL/VALSARTAN) PO SCH ×2 (05:59→20:14)
[2020-09-06] MEDS: DOCUSATE SODIUM 100MG CAPSULE PO SCH (05:59)
[2020-09-06] MEDS: ASPIRIN 81MG ENTERIC TABLET PO SCH (05:59)
[2020-09-06 06:00] VITALS: BP 164/90
[2020-09-06] MEDS: CARVedilol 12.5 MG TAB PO SCH ×2 (06:00→20:14)
[2020-09-06 06:18] LABS: BASO # 0.1 10^3/uL (0.0-0.2); BASO % 0.8 % (0.0-1.0); EOS # 0.4 10^3/uL (0.0-0.5); HEMATOCRIT 27.3 % (42.0-52.0); HEMOGLOBIN 8.6 g/dl (13.5-17.5); LYMPH # 1.7 10^3/uL (1.5-5.0); LYMPH % 13.2 % (24.0-44.0); MEAN CORPUSCULAR HEMOGLOBIN 28.3 pg (27.0-33.0); MEAN CORPUSCULAR HGB CONC 31.5 g/dl (32.0-36.5); MEAN CORPUSCULAR VOLUME 89.8 fl (80.0-96.0); MONO # 0.9 10^3/uL (0.0-0.8); MONO % 6.5 % (2.0-8.0); PLATELET COUNT, AUTOMATED 265 10^3/uL (150-450); RED BLOOD COUNT 3.04 10^6/uL (4.30-6.10); WHITE BLOOD COUNT 13.1 10^3/uL (4.0-10.0)
[2020-09-06] MEDS: (RENVELA) SEVELAMER **CARBONate** 800 MG TAB PO SCH ×3 (06:34→17:15)
[2020-09-06 06:48] LABS: C REACTIVE PROTEIN QUANTITATIV 13.6 MG/DL (0.00-0.30); CALCIUM LEVEL 9.2 MG/DL (8.5-10.1); CREATININE FOR GFR 10.6 MG/DL (0.70-1.30); GLOMERULAR FILTRATION RATE 5.9 (>60); POTASSIUM SERUM 4.2 MEQ/L (3.5-5.1); VANCOMYCIN RANDOM 25.7 UG/ML
[2020-09-06 06:52] LABS: ERYTHROCYTE SEDIMENTATION RATE 126 mm/hr (0-15)
[2020-09-06] MEDS: PIPERACILLIN/TAZOBACTAM SOD 4.5 GM in D5W MINI-BAG PLUS 50 ML IV SCH ×2 (08:42→20:14)
[2020-09-06] MEDS: DARBEPOETIN 200MCG/0.4ML *DIALYSIS* SYRINGE (J0882 PER 1MCG) IV SCH (09:31)
--- NOTE | 2020-09-06 10:44 | IPNPDOC ---
Date Seen The patient was seen on 09/06/20. Progress Note Subjective: No new issues overnight. Patient continues to complain of discomfort And his bilateral feet. No fever, chills overnight. He remains anemic with no overt GI bleed. Restaurant Front Manager environmental economist Dr. Conley said that the echocardiogram has no thrombus formation and. Recommended imaging of the patient's abdominal aorta which could also have thrombosis That can embolized to his bilateral feet. Rheumatology workup was negative previously, but the auto dismantler has been consulted. Dr. Valeria Corral for telemetry medicine. Infectious disease specialist, has also been consulted. Objective: Physical exam: Vital signs: See below GENERAL: Lying at 30 head elevation and dialysis No use of respiratory accessory muscles. Peaks in full sentences No pallor, icterus or jaundice Awake, alert, and oriented to person, place and time, disheveled. , Answering questions appropriately HEENT: Dry mucous membranes, poor dentition. NECK: No JVD. No thyromegaly. LUNGS: Clear to auscultation. No wheezes, rhonchi or rales. HEART: S1, S2. Sinus rhythm. ABDOMEN: Soft, nontender, and non-distended. EXTREMITIES: The patient has decreasing erythema on the dorsum of the right foot; necrotic gangrenous toes are noted but well delineated. Left lower extremity has all the toes gangrenous with marked eschar. LABORATORY DATA: See below , Microbiology: See below , Imaging studies: See below ASSESSMENT AND PLAN: This is a 35-year-old male with history of end-stage renal disease on maintenance dialysis Sunday, Sunday, and Sunday; peripheral arterial disease, hypertension, gout, reflux, and hyperlipidemia, chronic ulceration turned gangrenous bilateral toes on bilateral feet. The patient was admitted with history of systolic heart failure with EF of 25%. IMPRESSION: bilateral toes gangrene. At this time the patient is kept on IV antibiotics, deferred to podiatry for amputation, transmetatarsal potentially on the left since it has a well demarcated area of necrosis . Patient's white count may be due to inflammatory response. Procalcitonin, however, was quite elevated but we will continue to track this. Patient's embolic phenomenon to his bilateral toes Raises a concern for endocarditis versus rheumatologic disease. Previous rheumatology workup was negative for RONY. Dr. CORRAL been consulted for rheumatology telemetry medicine. Per Dr. Herman aircraft tool maker environmental economist. 2-D echo was unchanged from previous echo with no signs of thrombus , and recommended imaging of the abdominal aorta as a potential cause of thrombus and embolic phenomenon to his bilateral lower extremities. ID consulted to determine need for Continued IV antibiotics Peripheral arterial disease. The patient had been revascularized and followed by vascular surgery, currently on anticoagulation. Anemia: The patient has required 5 units of RBC transfusion. No overt GI bleed or recurrent epistaxis. Given erythropoietin by nephrology End-stage renal disease on maintenance dialysis managed by nephrology. Secondary hyperparathyroidism, chronic. Congestive heart failure Systolic dysfunction, EF of 25% , compensated on maintenance dialysis. VS, I&O, 24H, [facility] Vital Signs/I&O Vital Signs Date Time Temp Pulse Resp B/P (MAP) Pulse Ox O2 Delivery O2 Flow Rate FiO2 09/06/20 06:00 98.4 68 18 164/90 (114) 99 09/05/20 10:23 Room Air I&O- Last 24 Hours up to 6 AM 09/06/20 06:00 Intake Total 1370 ml Output Total 0 ml Balance 1370 ml Laboratory Data 24H LABS Laboratory Tests 2 09/06/20 06:04: Immature Granulocyte % (Auto) 0.5, Neutrophils (%) (Auto) 76.0H, Lymphocytes (%) (Auto) 13.2L, Monocytes (%) (Auto) 6.5, Eosinophils (%) (Auto) 3.0, Basophils (%) (Auto) 0.8, Neutrophils # (Auto) 10.0H, Lymphocytes # (Auto) 1.7, Monocytes # (Auto) 0.9H, Eosinophils # (Auto) 0.4, Basophils # (Auto) 0.1, Nucleated Red Blood Cells % (auto) 0.0, Erythrocyte Sedimentation Rate 126H, Anion Gap 13, Glomerular Filtration Rate 5.9L, Calcium Level 9.2, C-Reactive Protein, Quantitative 13.60H, Random Vancomycin Level 25.7 09/06/20 10:15: CBC/BMP Laboratory Tests 09/06/20 06:04 Microbiology Microbiology 08/30/20 Blood Culture - Final, Complete NO GROWTH AFTER 5 DAYS 08/30/20 Blood Culture - Final, Complete NO GROWTH AFTER 5 DAYS 08/30/20 Urine Culture - Final, Complete KIET HOOKER MD Sep 06, 2020 10:44
[2020-09-06 11:05] LABS: COMPLEMENT C3 96 MG/DL (90-180); COMPLEMENT C4 26 MG/DL (10-40)
--- NOTE | 2020-09-06 12:28 | ECHO ---
DATE OF PROCEDURE: 09/05/2020 Age: 35 Gender: Male Height: 180 cm Weight: 100 kg REFERRING PHYSICIANS: Inez Blackwood M.D. and Jess Garcia M.D. INDICATION: Peripheral embolization, end-stage renal disease, cardiomyopathy. MEASUREMENTS: IVS 1.2 cm LV 5.6 cm LV systolic 4.2 cm LVPW 1.2 cm LA 4.0 cm Aorta 3.6 cm RV 3.2 cm IVC 1.6 cm DOPPLER MEASUREMENT Mitral E wave velocity 60 Mitral A 48 E prime septal 8.6 E prime lateral 9.3 FINDINGS: This study is of acceptable technical quality, but the apical views were rather limited, especially for endocardial resolution. Underlying sinus rhythm. Left ventricle is borderline enlarged and appears globally hypokinetic. I do estimate overall EF around 25% to 30%, but this is on fair visualization and should not be considered completely accurate. Mild left ventricular hypertrophy is noted. Right ventricle does not appear grossly enlarged. There is biatrial enlargement. Aortic valve is mildly sclerotic, but has three cusps and preserved mobility. Mitral, tricuspid, and pulmonic valves appear structurally normal. Trivial pericardial effusion is present. Inferior vena cava is normal size and appropriately collapses with inspiration indicative of normal central venous pressure. The aortic root is normal. Aortic arch was not well seen. Abdominal aorta appears normal. Doppler interrogation reveals competent aortic valve. There is trace mitral insufficiency. Tricuspid and pulmonic valves are also functionally competent. Mitral inflow pattern and tissue Doppler imaging of the mitral annulus revealed likely grade 2 diastolic dysfunction, even though tissue Doppler velocities of the mitral annulus are relatively preserved. CONCLUSIONS: 1. Study is of fair technical quality, underlying sinus rhythm. 2. Borderline dilated left ventricle with global hypokinesis and estimated LVEF around 25% to 30%. Probably grade 2 diastolic dysfunction. 3. No hemodynamically significant valvular disease. 4. Likely normal central venous pressure. 5. Unable to estimate pulmonary artery pressure. 6. Trivial pericardial effusion. COMMENTS: No definite explanation for suspected embolic event. MTDD
[2020-09-06 14:00] VITALS: BP 143/91
--- NOTE | 2020-09-06 14:11 | IPN ---
PROGRESS NOTE DATE: 09/06/2020 SUBJECTIVE: The patient was seen and examined at the bedside today morning. He is afebrile, hemodynamically stable. He is being dialyzed and he is tolerating the hemodialysis procedure well. OBJECTIVE: VITAL SIGNS: Temperature is 98.4 degrees Fahrenheit, blood pressure is 164/90, pulse is 120, respiratory rate of 18, saturating 99% on room air. INTAKE AND OUTPUT: Urine output recorded as 100 ml yesterday. Weight on the bed scale is not available. GENERAL: The patient is awake, alert and oriented x3, laying in bed getting hemodialysis done. HEAD AND NECK: Extraocular muscles are intact. Pupils equally round and reactive to light. Mucous membranes are moist. NECK: Supple. He has a tunneled dialysis catheter. CARDIOVASCULAR: S1 and S2, regular. Trace edema of the bilateral lower extremities. RESPIRATORY: Clear to auscultation bilaterally. Bilateral equal air entry. No rales or rhonchi. ABDOMEN: Soft, obese, positive bowel sounds, nontender. No organomegaly. MUSCULOSKELETAL: He has gangrene in all the toes in the left foot and two toes on the right foot have gangrene as well. They are covered with a dressing. 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 Power is 5/5 in bilateral upper extremities. LABORATORY DATA: CBC showed a WBC of 13.1, hemoglobin is 8.6, platelets are 265,000, BMP showed a sodium of 136, potassium is 4.2, chloride is 100, bicarbonate is 23, BUN is 60, creatinine is 10.6. C-reactive protein is 13.5. Vancomycin level today is 25.7. CURRENT INPATIENT MEDICATIONS: The patient's medications were all reviewed by myself. He continues to be on IV Vancomycin and Zosyn. No significant change in the medications today as compared with yesterday. ASSESSMENT AND PLAN: 1. Endstage renal disease. Patient is being dialyzed according to his regular schedule today. Ultrafiltration goal is around 2 liters. 2. Peripheral vascular disease and gangrene of the toes. The patient is being seen by Podiatry. He is currently empirically being covered with Vancomycin and Zosyn. 3. Hypertension with hypertensive heart disease. Continue Coreg and Entresto. 4. Dilated cardiomyopathy. Patient had a repeat echocardiogram done to rule out thrombus in the ventricle. Continue Coreg and Entresto. Volume status is optimized with dialysis. 5. Chronic kidney disease mineral bone disease. Continue Renvela. 6. Anemia and endstage renal disease. Patient is getting Aranesp with dialysis. Hemoglobin level is slightly suboptimal. I will transfuse him 1 unit of PRBC if his hemoglobin is less than 8.
[2020-09-06] MEDS: ATORVASTATIN 20 MG TAB PO SCH (20:14)
[2020-09-06] MEDS: PANTOPRAZOLE 20 MG TAB PO SCH (20:14)
[2020-09-06 22:00] VITALS: BP 123/84
[2020-09-06 22:36] LABS: HIV 1&2 SCREEN CENTAUR NEGATIVE (NEGATIVE)
[2020-09-07 06:00] VITALS: BP 141/81
[2020-09-07 07:00] LABS: BASO # 0.1 10^3/uL (0.0-0.2); BASO % 0.7 % (0.0-1.0); EOS # 0.3 10^3/uL (0.0-0.5); EOS % 1.7 % (0.0-3.0); HEMATOCRIT 27.9 % (42.0-52.0); HEMOGLOBIN 9.1 g/dl (13.5-17.5); LYMPH # 1.5 10^3/uL (1.5-5.0); LYMPH % 9.7 % (24.0-44.0); MEAN CORPUSCULAR HEMOGLOBIN 28.9 pg (27.0-33.0); MEAN CORPUSCULAR HGB CONC 32.6 g/dl (32.0-36.5); MEAN CORPUSCULAR VOLUME 88.6 fl (80.0-96.0); MONO # 0.9 10^3/uL (0.0-0.8); MONO % 5.8 % (2.0-8.0); NEUTROPHILS # 12.7 10^3/uL (1.5-8.5); NEUTROPHILS % 81.6 % (36.0-66.0); PLATELET COUNT, AUTOMATED 262 10^3/uL (150-450); RED BLOOD COUNT 3.15 10^6/uL (4.30-6.10); WHITE BLOOD COUNT 15.6 10^3/uL (4.0-10.0)
[2020-09-07 07:30] LABS: CALCIUM LEVEL 9.3 MG/DL (8.5-10.1); CREATININE FOR GFR 7.05 MG/DL (0.70-1.30); GLOMERULAR FILTRATION RATE 9.4 (>60); POTASSIUM SERUM 4.3 MEQ/L (3.5-5.1)
[2020-09-07] MEDS ORDERED: ISOVUE-370 76% 100ML VIAL As Ordered ONE ×2 (07:41→15:35)
--- NOTE | 2020-09-07 08:58 | IPNPDOC ---
Date Seen The patient was seen on 09/07/20. Progress Note Patient seen and examined. I reviewed his CTA of the abdomen. He has widely patent flow through the aorta with scant calcification in the aorta, no thrombus, no protruding plaque. The mesenteric and renal vessels are patent. There is some calcification at the origin of the MIRANDA that's fairly significant but is patent. The iliac vessels are patent. The runoff through the bilateral lower extremities is stable. We again see heavy calcification of the tibials and the pedal vessels. I ordered a CTA of the chest. If we're looking for embolic sources, we also need to examine the ascending aorta, the arch, and the descending thoracic aorta. Dr. Conley is going to do a CASIE tomorrow. Therefore, we will reschedule the patient's AV fistula creation. I'm still worried that he is high risk for steal syndrome with AV fistula, because his radial and ulnar arteries are also heavily calcified with microvascular disease in the hand similar to what we see in the lower extremities. The left arm is better than the right, and our plan for left brachial basilic AV fistula may be successful, but I have explained to the patient that if he experiences steal due to the disease in the hand, this may be a challenging process to get him a long-term access. Nevertheless, he is dialyzing fine with this PermCath at this point and a brachial basilic AV fistula will not be ready for use for 8-10 weeks after cr eation, so holding off on creation for another week will not dramatically change things. We will reschedule his AV fistula creation. We will continue to follow closely. We appreciate the opportunity to participate in the care of this patient. VS, I&O, 24H, Fishbone Vital Signs/I&O Vital Signs Date Time Temp Pulse Resp B/P (MAP) Pulse Ox O2 Delivery O2 Flow Rate FiO2 09/07/20 06:00 97.9 93 17 141/81 (101) 96 Room Air I&O- Last 24 Hours up to 6 AM 09/07/20 06:00 Intake Total 1460 ml Output Total 2000 ml Balance -540 ml Laboratory Data 24H LABS Laboratory Tests 2 09/06/20 10:15: Erythrocyte Sedimentation Rate 129H, C-Reactive Protein, Quantitative 13.50H, Complement C3 96, Complement C4 26, HIV Antigen/Antibody Combo Qual NEGATIVE 09/07/20 06:44: Immature Granulocyte % (Auto) 0.5, Neutrophils (%) (Auto) 81.6H, Lymphocytes (%) (Auto) 9.7L, Monocytes (%) (Auto) 5.8, Eosinophils (%) (Auto) 1.7, Basophils (%) (Auto) 0.7, Neutrophils # (Auto) 12.7H, Lymphocytes # (Auto) 1.5, Monocytes # (Auto) 0.9H, Eosinophils # (Auto) 0.3, Basophils # (Auto) 0.1, Nucleated Red Blood Cells % (auto) 0.0, Anion Gap 9, Glomerular Filtration Rate 9.4L, Calcium Level 9.3 CBC/BMP Laboratory Tests 09/07/20 06:44 Microbiology Microbiology 08/30/20 Blood Culture - Final, Complete NO GROWTH AFTER 5 DAYS 08/30/20 Blood Culture - Final, Complete NO GROWTH AFTER 5 DAYS 08/30/20 Urine Culture - Final, Complete KAROLINA JOSE MD Sep 07, 2020 08:58
[2020-09-07] MEDS: ASPIRIN 81MG ENTERIC TABLET PO SCH (09:04)
[2020-09-07] MEDS: DOCUSATE SODIUM 100MG CAPSULE PO SCH (09:04)
[2020-09-07] MEDS: PIPERACILLIN/TAZOBACTAM SOD 4.5 GM in D5W MINI-BAG PLUS 50 ML IV SCH ×2 (09:04→21:32)
[2020-09-07] MEDS: ENTRESTO 49-51MG TABLET (SACUBITRIL/VALSARTAN) PO SCH ×2 (09:04→21:32)
[2020-09-07] MEDS: (RENVELA) SEVELAMER **CARBONate** 800 MG TAB PO SCH ×3 (09:04→18:02)
[2020-09-07] MEDS: PERCOCET 5MG/325MG TAB PO PRN ×3 (09:05→21:33)
[2020-09-07] MEDS: CARVedilol 12.5 MG TAB PO SCH ×2 (09:06→21:32)
--- NOTE | 2020-09-07 09:15 | REP ---
INDICATION: EMBOLI TO B/L TOES R/O THROMBOSIS. COMPARISON: None. TECHNIQUE: Helical scanning is acquired following the intravenous injection of 100 mL of Isovue 370. 3 mm axial images re-formatted. Coronal and sagittal MPR and coronal MIP images are generated. In addition 3D surface rendered color images are generated and viewed in a rotating format. FINDINGS: Non vascular: the lung bases are clear. There are small bilateral renal cysts the largest of which is in the lower pole region of the right kidney measuring 1.7 cm in diameter. There is an accessory splenule in the left upper quadrant. Vas deferens calcification is seen. This may correlate with diabetes. There are scattered bilateral inguinal lymph nodes none of which is enlarged by CT criteria. Vascular: There is a striking amount of diffuse vascular calcification in the arterial tree in this patient considering his young age. The suprarenal abdominal aorta is normal in caliber. There is no evidence of thrombus in the left ventricle or left atrium. The celiac and superior mesenteric axis origins from the aorta are clear. Inferior mesenteric artery is patent but appears stenotic at its origin. Both the right and left renal arteries are duplicated. The accessory renal arteries go to the lower poles of each kidney and each of these appears stenotic at its origin. The infrarenal abdominal aorta is widely patent although calcified. No irregular plaquing, mural thrombus, or aneurysm is seen. The common iliac arteries, the external iliac arteries, and the internal iliac arteries are bilaterally patent without significant stenosis. Extensive diffuse arterial calcification is observed. In the right lower extremity, the common femoral, profundal, and superficial femoral artery are patent but calcified. Popliteal artery is widely patent. Calf trifurcation arteries are diffusely calcified but appear to be patent to the distal calf. The anterior tibial artery appears to be occluded over a short segment just beyond the ankle. The posterior tibial artery is seen crossing into and feeding tarsal arch in the plantar soft tissues. In the left lower extremity, the common femoral, superficial femoral, and profundal femoral artery of calcific but patent. No stenosis or occlusion is seen. The popliteal artery is widely patent but calcified. Diffuse calf trifurcation arterial calcification is seen. The 3D calf vessels appear to be patent to the distal calf. There is calcific plaquing in the dorsalis pedis artery and a short segment occlusion is suspected in the dorsalis pedis artery on the left as well. The left posterior tibial artery across the ankle and is seen feeding the plantar arch vessels. Reconstituted dorsalis pedis artery is seen dorsally. IMPRESSION: There is a surprising amount of diffuse arterial calcification. No large vessel occlusion, irregular thrombus, or aneurysm is seen. I suspect there are dorsalis pedis artery short segment occlusions bilaterally. Both renal arteries duplicated and the smaller accessory renal arteries to each renal lower pole appears stenotic at their origin. The inferior mesenteric artery appears stenotic at its origin. <Electronically signed by Luis Alejandre > 09/07/20 [id number]
--- NOTE | 2020-09-07 09:36 | CR ---
CONSULTATION DATE: 09/06/2020 REASON FOR CONSULTATION: I was asked to consult by Dr. Garcia for evaluation of necrotic toes, both feet with peripheral vascular disease. HISTORY OF PRESENT ILLNESS: Will is a pleasant, 35-year-old gentleman who was admitted in June for two weeks with end-stage renal disease, started on hemodialysis when he was noted to have a creatinine of 10, hypertension that was untreated for years and gout. The patient came to the emergency room last hospitalization with pain in his foot and yet noticed a black discoloration of his left fourth toe. He was seen in consultation with Dr. Bahena who eventually did an amputation of that toe as it turned gangrenous and infected with cultures that were positive for Enterobacter and Strep. He had the amputation done end of June and eventually discharged home on hemodialysis. The patient was worked up by nephrology. He had a renal biopsy. He had nephrotic range proteinuria, a positive ASO titer. Blood cultures x 2 sets were negative. Echo showed an ejection fracture of 25% and there was concern about endocarditis even though blood cultures x4 sets were negative and the patient had not had any fever or chills, nausea, vomiting or diarrhea. A transesophageal echocardiogram was done on July [address] Conley who did not see any vegetation and his EF was confirmed to be at 25%. The patient was eventually discharged home until August 30 when he came back with severe nosebleeds, dizziness, blurry vision and he was noted to have a hemoglobin of 6.6 with a hematocrit of 19.9. He was admitted, had blood transfusion and continued on hemodialysis. In the meantime, the hospitalist had noted that he discoloration of his third and fourth toe on the right foot that were slightly painful. He did not have any associated fever or chills. The patient was started on IV antibiotics with vancomycin and Zosyn. Since then, other toes have been involved. He is followed up with Dr. Mcmanus who did an angioplasty. She describes his peripheral vascular disease as if the patient is diabetic although the patient's HBA1c was 5.7 and 5.9 on two separate occasions and he is not known to be diabetic. The vessels are tortuous and heavily calcified and are not consistent with a vasculitis process. PAST MEDICAL HISTORY: 1. End-stage renal disease diagnosed in June of 2020. Renal biopsy was not conclusive for an autoimmune disease or vasculitis. His C3 was initially low on a previous admission but normal this admission. CH50 was normal. 2. Essential hypertension, previously untreated. 3. Dilated cardiomyopathy with ejection fraction of 25%. 4. History of gout, multiple episodes that had been untreated in the past. 5. Gangrene of the toes. 6. Peripheral vascular disease. 7. Status post angioplasty. ALLERGIES: No known drug allergies. LABORATORY DATA: Blood cultures, two sets on 08/30 were now growth after five days. Urine culture was negative. White count 13.1, hemoglobin 8.6, hematocrit 27.3, ESR 126. On admission, 08/30, white count was 17, hemoglobin of 6.6, hematocrit 19.9, platelets 270, 80% neutrophils, 9% lymphocytes, 7% monocytes, ESR 126. Sodium 136, potassium 4.2, chloride 100, bicarb 23, BUN 60, creatinine 10.6. Glucose 91, calcium 9.2, CRP 13.6 down from 16.3, procalcitonin 2.35. Urine has +3 leukocyte esterase, 85 white cells, 19 red cells, ANCA, RONY, DOMI-1, Wild antibody, anti-double stranded DNA, C3 are all pending. C3 96, C4 26, CH50 pending. Hepatitis B and C were done last admission, were negative. SARS-CoV-2 negative. Influenza A and B and RSV are pending. IMAGING: Foot MRI done on 08/30 of the right foot showed no evidence of osteomyelitis but consistent with soft tissue edema and the intrinsic muscles of the foot with fluid signal tracking along the distal myotendinous junction and the flexor digitorum. CT, chest done on previous hospitalizations shows reactive adenopathy and followup was recommended. No other imaging was done this hospitalization. Echocardiogram done on 09/[address] Conley, study is acceptable in quality but the apical views are limited. EF 25-30%, mild LVH. Right ventricle does not appear enlarged. Grade 2 diastolic dysfunction. PHYSICAL EXAMINATION: He is a pleasant gentleman, no acute distress, anxious about disease process. Temperature is 97.4, pulse 84, respirations 18, blood pressure 143/91, O2 sat 100% on room air. He had been afebrile throughout this admission. Heart: Normal S1, S2, no murmurs appreciated. Lungs are clear. No wheezes, rales or rhonchi. Abdomen: Slightly obese, soft, nontender, no hepatosplenomegaly. Back: No CVA or lumbosacral tenderness. Extremities: Musculoskeletal exam normal strength. Neurologic exam: Normal upper and lower extremity strength: Extremities: Diminished pulses bilaterally, was able to find them on Doppler, posterior tibialis. Left foot: Fourth toe amputation with nonhealing ulcer. Tip of all the toes are involved on the left side. Right foot: Gangrene of the toes with discoloration of the right foot on the dorsal aspect. The gangrene is well delineated. There is no purulent discharge. There is black eschar. IMPRESSION: This is a 35-year-old gentleman with a history of uncontrolled hypertension, untreated, who presents two months ago with renal failure requiring dialysis, at this point has end-stage renal disease, peripheral vascular disease with ischemic changes of his left fourth toe that required amputation but since then he has developed necrotic toes plus multiple other digits that makes it very concerning for some ischemic embolic phenomena from his heart or aorta. The patient is noted to have a dilated cardiomyopathy but he on previous admission was negative for vegetation on 07/14 before his discharge. His blood cultures have remained negative. He had four sets on the previous hospitalization, two sets this hospitalization. He could have a culture negative endocarditis but one would expect to see a vegetation. Noninfectious emboli also are in the differential possibly from large arteries. According to Dr. Mcmanus, the pattern of his angiogram and the findings are not consistent with a vasculitis but more of heavy calcified plaques like in patients with diabetes or end-stage renal disease for years. His autoimmune workup has so far been negative. PLAN: Would suggest discontinue IV vancomycin. His previous cultures had Strep and Enterobacter which should be covered with Zosyn. At this point, I do not think that his ischemic toes are infected but they are at risk of infection. He had HIV testing. The case will be discussed with nephrology as well as rheumatology. I have already discussed with Dr. Mcmanus and Dr. Garcia. We will obtain a follow-up CASIE to make sure he does not have endocarditis or a thrombus causing these emboli. Also would obtain CT, chest to followup on adenopathy, abdomen and pelvis with contrast will be done on Sunday to rule out any other sources of thrombus causing these embolism.
[2020-09-07] MEDS ORDERED: EXCEDRIN MIGRAINE TABLET PO PRN (11:45)
[2020-09-07] MEDS ORDERED: MOM 30ML SUSPENSION UDC PO PRN (12:00)
--- NOTE | 2020-09-07 12:14 | IPN ---
NEPHROLOGY PROGRESS NOTE DATE: 09/07/2020 SUBJECTIVE: Patient was seen and examined at the bedside today morning. He is afebrile, hemodynamically stable. He was dialyzed yesterday. He tolerated the hemodialysis procedure well. His transesophageal echocardiogram result also came back. There is no clot in the ventricle. The patient is going to have a CT angiogram tomorrow and his dialysis is also scheduled for tomorrow. OBJECTIVE: VITAL SIGNS: Temperature 97.9 degrees Fahrenheit, blood pressure 141/81, pulse 93, respiratory rate 17, saturating 96% on room air. INTAKE AND OUTPUT: No urine output recorded. Ultrafiltration with hemodialysis was 2 liters. Weight in the bed scale is not available. PHYSICAL EXAMINATION: GENERAL: Patient is awake, alert, oriented times three, laying in bed, no apparent distress. HEAD AND NECK EXAM: Extraocular muscles intact. Pupils equally round and reactive to light. Neck is supple. He has a tunneled hemodialysis catheter.. CARDIOVASCULAR: S1, S2. Regular rate. No edema of the bilateral lower extremities. RESPIRATORY: Chest is clear to auscultation bilaterally. Bilateral equal air entry. No rales or rhonchi. ABDOMEN: Soft. Positive bowel sounds. Nontender. No organomegaly. MUSCULOSKELETAL: Patient has dressings on bilateral feet. 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 Power is 5/5 in all extremities. LABORATORY REVIEW: CBC showed a WBC of 15.6, hemoglobin 9.1, platelets 252. BMP showed sodium 134, potassium 4.3, chloride 98, bicarbonate 27, BUN 33, creatinine 7. Transesophageal echocardiogram was done which showed left ventricular ejection fraction of 25-30%. There is dilated cardiomyopathy with grade 2 diastolic dysfunction. There was no clot in the ventricle. CURRENT MEDICATIONS: Patient's medications were all reviewed by myself. There is no significant change in the medications today as compared with yesterday. ASSESSMENT AND PLAN: 1. End-stage renal disease. Patient will be dialyzed tomorrow morning as per his regular schedule. 2. Anemia in end-stage renal disease. Patient is currently on Aranesp. Hemoglobin level is slowly improving. 3. Peripheral vascular disease and gangrene of the toes. Patient got the transesophageal echocardiogram, which did not show any clots. He is going to have the CT angiogram done tomorrow and he will have dialysis after that. Continue current dose of vancomycin and Zosyn. 4. Hypertension. Continue Coreg and Entresto. 5. Dilated cardiomyopathy. Continue Entresto and Coreg and volume status is optimized for dialysis.
--- NOTE | 2020-09-07 12:42 | IPN ---
PROGRESS NOTE DATE: 09/07/2020 Patient seen and examined. He is concerned over the worsening nature of his toes. He has had progressive discoloration and black eschar forming on more toes of his right foot over the last few days. Denies other significant complaints. Vital signs are reviewed. He has been afebrile. Labs are reviewed. White blood cell count is 15.6. Most recent ESR is 129. CRP 13.5. Lower extremity examination: There are further dysvascular changes to the toes on both feet with eschar to all toes on the left foot and to toes 2, 3, and 4 on the right foot. No purulent drainage. ASSESSMENT: Gangrene, bilateral feet. I do not feel that this is infectious in nature. The gangrene is dry without fluctuance. Ultimately he will require toe amputations. This is not urgent. Presently it is unclear the source of the thrombus or other cause to his distal vasculature, but he does continue to have worsening ischemic changes. Ideally would hold toe amputations until a source can be identified and potentially treated or until the ischemic stabilizes, and no further gangrenous changes are noted. For now will keep wounds clean, will monitor, and await further testing.
[2020-09-07 14:00] VITALS: BP 144/94
--- NOTE | 2020-09-07 14:07 | IPNPDOC ---
Text Note Date of Service The patient was seen on 09/07/20. NOTE Subjective: Patient was seen and examined this morning at bedside. Patient tells me that he still has persistent lower extremity pain it's about the same as yesterday has no other complaints. Feeling well otherwise there is no acute overnight events. Objective: Constitutional: Awake and alert, in no apparent distress ENT: Sclera are clear. Mucosa is moist. Respiratory: Lungs CTA bilaterally. No respiratory distress. Cardiovascular: RRR S1 and S2 are normal, no murmur Gastrointestinal: Abdomen is soft, non distended, non tender, BS present. Musculoskeletal: No lower extremity edema. No joint deformities. Neurologic: No focal neurological deficit. Mental Status: A&O x3, normal affect Skin: He has gangrene of the toes which is well delineated with a black eschar. There is no erythema or purulent discharge. Clean dressing over both feet. Assessment/plan: 35-year-old male history of ESRD on HD and worsening bilateral gangrenous toes admitted for progression of his condition without known underlying etiology. Admitted for further medical workup. Initially admitted for lightheadedness and nosebleed found to have a hemoglobin of 6.6 at time of admission which has recovered with blood transfusion. # Bilateral toe gangrene: Unclear etiology. Ruling out embolic causes. Plan for CASIE tomorrow with Dr. Conley. ID Dr Briceno consulted, continue Zosyn and disco ntinue Vancomycin. Podiatry following no need for urgent amputation at this time doesn't appear actively infected Will eventually need amputation. Dr. Mcmanus vascular surgery consulted, will delay his AV graft formation for now. Rheumatology Dr. Valeria Corral consulted. Currently differential is endocarditis/embolic phenomena versus rheumatological disease process. Prior rheumatology workup has been negative including RONY. # PVD: Patient has been revascularized and followed by vascular surgery. Currently on anti-coagulation. # CHFrEF: Compensated. Has dilated cardiomyopathy on echo. On maintenance dialysis. Resume home medications. # ESRD: Receives hemodialysis 3 times a week nephrology is following and managing his HD. # Anemia: Patient has required 5 units of PRBC there is no obvious GI bleed. He was started on erythropoietin by nephrology. Monitor CBC. A [facility] Hospitalist Silvia KAPOOR, I+O VSSilvia, I+O Laboratory Tests 09/07/20 06:44 Vital Signs Date Time Temp Pulse Resp B/P (MAP) Pulse Ox O2 Delivery O2 Flow Rate FiO2 09/07/20 10:03 16 Room Air 09/07/20 09:06 79 152/96 09/07/20 06:00 97.9 96 l I&O- Last 24 Hours up to 6 AM 09/07/20 06:00 Intake Total 1460 ml Output Total 2000 ml Balance -540 ml LORA MICHEL MD Sep 07, 2020 14:07
--- NOTE | 2020-09-07 14:54 | IPN ---
PROGRESS NOTE DATE: 08/30/2020 SUBJECTIVE: The patient is status post angioplasty of the right posterior tibial artery and medial plantar artery due to severe atherosclerosis of the [place] arteries of the right foot with nonhealing gangrene. He complains of heel pain rated at 10/10 while he is at dialysis. He has otherwise had no fever or chills. OBJECTIVE: VITAL SIGNS: Temperature 98.6, pulse 75, respiratory rate 20, blood pressure 151/81, 98% on room air. GENERAL: The patient is awake, alert, and oriented x3, in no respiratory distress. No pallor or icterus. No use of respiratory accessory muscles. HEENT: Dry mucous membranes. NECK: No JVD, thyromegaly, or cervical lymphadenopathy. LUNGS: Clear to auscultation with no wheezing, rales, or rhonchi. HEART: S1, S2. Sinus rhythm. ABDOMEN: Obese, soft, nontender, and nondistended with positive bowel sounds. EXTREMITIES: Bilateral gangrenous toes. Diminished pulses posterior tibialis and dorsalis pedis. SKIN: Warm, dry, and pink in color aside from the gangrenous black necrotic areas on bilateral toes on the right and left feet. LABORATORY DATA: White count 13.4 hemoglobin 10, hematocrit 29, platelet count 218,000. Sodium 134, potassium 3.6, chloride 98, bicarb 22, BUN 61, creatinine 0.47, glucose 105. C-reactive protein 15.8. Previous CRP 16.3. ASSESSMENT AND PLAN: This is a 35-year-old male admitted on 08/30/2020 with past medical history significant for hypertension, gout, gastroesophageal reflux, systolic congestive heart failure with ejection fraction 25%, peripheral arterial disease status post amputations of the right third and fourth digits, chronic anemia, end-stage renal disease on maintenance hemodialysis, hyperlipidemia, Permacath placement admitted due to gangrene status post left foot fourth toe amputation. The patient had been seen by Dr. Medel at the wound care center, as well as Dr. Mcmanus with vascular surgery with worsening discoloration of the right foot and cyanosis particularly the second toe. The patient was started on empiric antibiotics with intravenous Zosyn and vancomycin. The patient's white count peaked at 14,000 decreasing to 13.4. CRP essentially unchanged. Procalcitonin pending. The patient underwent angioplasty on 09/01/2019, status post ultrasound-guided access left common femoral artery, aortoiliofemoral arteriogram, selection of the right common femoral and superficial femoral artery, and right lower extremity arteriogram, selection of the right popliteal artery and tibial runoff, selection of distal right peroneal artery and arteriogram with chronic total occlusion and angioplasty of right peritoneal artery with a 2 x 220 Sai balloon and angioplasty of the right posterior tibial artery and medial plantar artery with 2 x 220 Sai balloon Completion arteriograms of the right lower extremity The patient was continued on aspirin and currently in hemodialysis. IMPRESSION: 1. Gangrenous toes on the right foot status post angioplasty of the right posterior tibial artery and medial plantar artery and right peroneal artery by vascular surgery. The patient has been on intravenous (IV) antibiotics broad-spectrum with decreasing white count without fever, but the patient's gangrene is thought to be secondary to rheumatological disease and possible embolic phenomenon. If procalcitonin levels are negative, antibiotics will be discontinued and outpatient referral to rheumatology will be done at hospital discharge. 2. Atherosclerotic disease of the right foot status post angioplasty of the posterior tibial artery, right peroneal artery, and medial plantar artery. Currently on aspirin managed postoperatively by vascular surgery. 3. End-stage renal disease on maintenance hemodialysis Sunday, Sunday, and Sunday managed by nephrology. 4. Acute on chronic anemia. The patient was transfused two units of RBCs yesterday status post three units the day before and currently with five units of RBC transfused during this admission with stable hemoglobin of 10. The patient has no sample for hemoccult stool. DISPOSITION: If procalcitonin is negative, antibiotics will be discontinued. Await clearance from vascular surgery for discharge plan. JOAQUIN
--- NOTE | 2020-09-07 16:09 | REP ---
INDICATION: r/o embolic source BLE. COMPARISON: Comparison chest CT study July 04, 2020.. TECHNIQUE: Contrast dose: 75 ML of Isovue [address] technique: Helical scanning is acquired and overlapping 1.5 mm and contiguous 3 mm axial images are reformatted. In addition, maximum intensity projection and multiplanar re-formation images are generated in sagittal and coronal imaging projections. FINDINGS: There is good opacification in the pulmonary arterial tree. There is no evidence of vessel cut off or filling defect to suggest pulmonary embolus. Homogeneous opacity is seen in the thoracic aorta. There is no evidence of aneurysm or dissection. There is no filling defect seen in the left ventricle or left atrium to suggest a thrombus. No significant atherosclerotic changes are seen in the aortic arch or thoracic aorta. Lung window settings demonstrate there is no evidence of infiltrate, pleural effusion, atelectasis or mass. No significant pulmonary nodule is appreciated. No hilar or mediastinal mass or adenopathy is observed. A left-sided tunnel central venous catheter is noted in place. No pericardial effusion is seen. In the upper abdomen, normal adrenal glands are seen. The visualized upper abdominal structures are unremarkable. There is a small accessory splenule. IMPRESSION: No significant atherosclerotic plaquing seen in the aorta. No CT evidence of left atrial or left ventricular thrombus. No CT evidence of pulmonary embolus. No active disease.. <Electronically signed by Luis Alejandre > 09/07/20 [id number]
[2020-09-07] MEDS: SENOKOT S TAB PO PRN (21:32)
[2020-09-07] MEDS: ATORVASTATIN 20 MG TAB PO SCH (21:32)
[2020-09-07] MEDS: PANTOPRAZOLE 20 MG TAB PO SCH (21:34)
[2020-09-07 22:00] VITALS: BP 130/84
--- NOTE | 2020-09-07 23:40 | CR.PDOC ---
Text Note Date of Service 09/07/2020 NOTE Rheumatology Telephone Consultation Will Flood, is a 35 y/o man consulted for an underlying rheumatologic etiology for gangrenous toes. Discussed case with the hospitalist, Dr. Benedict on 09/07/2020. Reviewed the overall clinical presentation (including the history & physical, progress notes, labs, imaging available at the time of the telephone consultation). The patient has a history of end-stage kidney disease on hemodialysis, severe anemia, poorly controlled hypertension, dilated cardiomyopathy, gout, GERD, hyperlipidemia, and significant peripheral arterial disease (s/p amputation of 4th digit left foot (06/2020)) at a young age. There is a concern that he has an underlying rheumatologic condition that is contributing to the symptomatology. Based on the overall clinical presentation, will investigate an underlying rheumatologic process as the underlying etiology for the gangrene of the foot. There is a lack of evidence supporting a rheumatologic diagnosis, at this time - investigation is ongoing. The rheumatologic differential diagnosis includes connective tissue diseases, antiphospholipid syndrome, systemic vasculitides and thromboangiitis obliterans (no smoking, but documented history of chewing loose leaf tobacco in the outpatient setting). a. Recommend obtaining antiphospholipid antibodies - lupus anticoagulant, cardiolipin antibodies (IgM, IgG, IgA), and Beta-2 glycoprotein antibodies (IgM, IgG, IgA). Would obtain antithrombin III and the prothrombin gene mutation. Previously obtained on 08/26/2020 - Protein C, Protein S, and factor V Leiden were within normal limits. b. The Antinuclear antibody (RONY), dsDNA, CCP, total complement (CH50), and Sm ith ab are pending; please obtain histone antibody, anticentromere antibody, and scleroderma-70 antibody. Previous testing from 08/26/2020 revealed a negative Rheumatoid factor and negative RONY. c. The repeat Antineutrophil cytoplasmic antibodies (ANCA) are pending; the vasculitides are a consideration. However, the kidney biopsy performed on 07/06/2020 was not consistent with vasculitis and the imaging has not been consistent with an underlying vasculitic process, which decreases the clinical suspicion significantly. The previous ANCA testing (with MPO and PR3) on 08/26/2020 was negative. Will await the testing, prior to more aggressive investigation. d. Recommend evaluating the patient for an active Hepatitis B infection, given the development of a positive Hepatitis B surface antigen on 08/26/2020, which may be a false positive test. Recommend repeating the Hepatitis B serologies (Hepatitis B surface Ab, Hepatitis B surface Antigen, Hepatitis B core IgM); please obtain Hepatitis C antibodies and the cryoglobulins. HIV negative on 09/06/2020. e. Recommend Serum Protein Electrophoresis to evaluate for monoclonal gammopathy. f. Recommend the performance of a toxicology screen. g. Recommend the patient abstain from all forms of tobacco products. - Will follow along and plan to follow up the patient in the outpatient setting. Alejandra Corral MD [facility] Rheumatology ALEJANDRA CORRAL MD Sep 07, 2020 23:37
[2020-09-08 06:00] VITALS: BP 166/88
[2020-09-08 06:35] LABS: BASO # 0.1 10^3/uL (0.0-0.2); BASO % 0.8 % (0.0-1.0); EOS # 0.2 10^3/uL (0.0-0.5); EOS % 1.3 % (0.0-3.0); HEMOGLOBIN 8.8 g/dl (13.5-17.5); LYMPH # 1.1 10^3/uL (1.5-5.0); LYMPH % 7.4 % (24.0-44.0); MEAN CORPUSCULAR HEMOGLOBIN 28.8 pg (27.0-33.0); MEAN CORPUSCULAR HGB CONC 32.6 g/dl (32.0-36.5); MEAN CORPUSCULAR VOLUME 88.2 fl (80.0-96.0); MONO # 0.9 10^3/uL (0.0-0.8); MONO % 5.9 % (2.0-8.0); NEUTROPHILS # 12.2 10^3/uL (1.5-8.5); PLATELET COUNT, AUTOMATED 257 10^3/uL (150-450); RED BLOOD COUNT 3.06 10^6/uL (4.30-6.10); WHITE BLOOD COUNT 14.5 10^3/uL (4.0-10.0)
[2020-09-08] MEDS ORDERED: propofoL 200 MG/20 ML VIAL As Ordered ONE (06:49)
[2020-09-08 07:13] LABS: CALCIUM LEVEL 9.1 MG/DL (8.5-10.1); CREATININE FOR GFR 9.29 MG/DL (0.70-1.30); GLOMERULAR FILTRATION RATE 6.8 (>60); POTASSIUM SERUM 4.3 MEQ/L (3.5-5.1)
[2020-09-08] MEDS: PIPERACILLIN/TAZOBACTAM SOD 4.5 GM in D5W MINI-BAG PLUS 50 ML IV SCH ×2 (08:45→21:47)
[2020-09-08] MEDS: DOCUSATE SODIUM 100MG CAPSULE PO SCH (08:46)
[2020-09-08] MEDS: (RENVELA) SEVELAMER **CARBONate** 800 MG TAB PO SCH ×3 (08:46→17:42)
[2020-09-08] MEDS: ENTRESTO 49-51MG TABLET (SACUBITRIL/VALSARTAN) PO SCH ×2 (08:46→21:46)
[2020-09-08] MEDS: ASPIRIN 81MG ENTERIC TABLET PO SCH (08:46)
[2020-09-08] MEDS: CARVedilol 12.5 MG TAB PO SCH ×2 (08:47→21:47)
--- NOTE | 2020-09-08 11:48 | IPN ---
PROGRESS NOTE DATE: 09/08/2020 SUBJECTIVE: The patient was seen and examined at the bedside today morning. He got a CT angiogram of the chest and abdomen done yesterday. Patient reports that he is going for a transesophageal echocardiogram (CASIE) today and is nothing by mouth and he is also scheduled for hemodialysis today in the afternoon. OBJECTIVE: VITAL SIGNS: Temperature 97.6 degrees Fahrenheit, blood pressure 166/88, pulse 83, respiratory rate 17, saturating 97% on room air. INTAKE AND OUTPUT: Urine output is not recorded. Weight in the bed scale is not available. PHYSICAL EXAMINATION: GENERAL: Patient is awake, alert, oriented times three, obese body habitus, laying in bed, no apparent distress. HEAD AND NECK EXAM: Extraocular muscles intact. Pupils equally round and reactive to light. Mucous membranes are moist. Neck is supple. There is no jugular venous distention (JVD). CARDIOVASCULAR: S1, S2. Regular rate. No edema of the bilateral lower extremities. RESPIRATORY: Chest is clear to auscultation bilaterally. Bilateral equal air entry. No rales or rhonchi. ABDOMEN: Soft. Positive bowel sounds. Nontender. No organomegaly. MUSCULOSKELETAL: He has dressings on the bilateral feet because of gangrene. CENTRAL NERVOUS SYSTEM (OIL AND GAS SUPERINTENDENT): No focal deficits. Power is 5/5 in all extremities. LABORATORY REVIEW: CBC showed a WBC of 14.5, hemoglobin 8.8, platelets 257. BMP showed sodium 133, potassium 4.3, chloride 97, bicarbonate 26, BUN 44, creatinine 9.2. IMAGING: CT angiogram of the abdomen was done which showed diffuse arterial calcification. Both renal arteries are duplicated and smaller accessory renal arteries to lower poles appear stenotic at the origin and inferior mesenteric artery is stenotic as well. CURRENT INPATIENT MEDICATIONS: Patient's medications were all reviewed by myself. There is no significant change in the medications except that his intravenous (IV) vancomycin is held and he continues to be on IV Zosyn. ASSESSMENT ANDPLAN: 1. End-stage renal disease. Patient continues to be on hemodialysis. He will be dialyzed today after his transesophageal echocardiogram. 2. Anemia in end-stage renal disease. Continue current dose of Aranesp. Transfuse as needed for hemoglobin below 8. 3. Peripheral vascular disease and gangrene of the bilateral lower extremities. Patient has extensive arterial calcifications. Vascular surgery is already on board. Continue IV Zosyn. Management of gangrene in the feet is as per podiatry. 4. Hypertension with hypertensive heart disease with dilated cardiomyopathy. Continue Coreg and Entresto. Volume status is optimized with dialysis.
--- NOTE | 2020-09-08 11:54 | IPNPDOC ---
Text Note Date of Service The patient was seen on 09/08/20. NOTE Subjective: Patient was seen and examined this morning at bedside. Clinic for CASIE today plan for dialysis after procedure. His buttocks and his history no change. Feeling overall other than some unchanged or extremity pain. No acute overnight events reported to me. Objective: Constitutional: Awake and alert, in no apparent distress ENT: Sclera are clear. Mucosa is moist. Respiratory: Lungs CTA bilaterally. No respiratory distress. Cardiovascular: RRR S1 and S2 are normal, no murmur Gastrointestinal: Abdomen is soft, non distended, non tender, BS present. Musculoskeletal: No lower extremity edema. No joint deformities. Neurologic: No focal neurological deficit. Mental Status: A&O x3, normal affect Skin: He has gangrene of the toes which is well delineated with a black eschar. There is no erythema or purulent discharge. Clean dressing over both feet. Assessment/plan: 35-year-old male history of ESRD on HD and worsening bilateral gangrenous toes admitted for progression of his condition without known underlying etiology. Admitted for further medical workup. Initially admitted for lightheadedness and nosebleed found to have a hemoglobin of 6.6 at time of admission which has recovered with blood transfusion. # Bilateral toe gangrene: s/p angioplasty of the right posterior tibial artery and medial plantar artery and right peroneal artery by vascular surgery. Unclear etiology. Ruling out embolic causes. Plan for CASIE with Dr. Conley. ID Dr Briceno consulted, continue Zosyn and discontinue Vanco mycin. Podiatry following no need for urgent amputation at this time doesn't appear actively infected Will eventually need amputation. Dr. Mcmanus vascular surgery consulted, will delay his AV graft formation for now. Rheumatology Dr. Valeria Corral consulted, recommended tests ordered, will fu with patient in clinic. Currently differential is endocarditis/embolic phenomena versus rheumatological disease process. Prior rheumatology workup has been negative including RONY. # PVD: Patient has been revascularized and followed by vascular surgery. Joselito robin on anti-coagulation. # CHFrEF: Compensated. Has dilated cardiomyopathy on echo. On maintenance dialysis. Resume home medications. # ESRD: Receives hemodialysis 3 times a week nephrology is following and managing his HD. # Anemia: Patient has required 5 units of PRBC there is no obvious GI bleed. He was started on erythropoietin by nephrology. Monitor CBC. A Jak Hospitalist Silvia KAPOOR I+O Silvia KAPOOR I+O Laboratory Tests 09/08/20 05:46 Vital Signs Date Time Temp Pulse Resp B/P (MAP) Pulse Ox O2 Delivery O2 Flow Rate FiO2 09/08/20 08:47 73 145/93 09/08/20 06:00 97.6 17 97 Room Air I&O- Last 24 Hours up to 6 AM 09/08/20 06:00 Intake Total 1290 ml Balance 1290 ml LORA MICHEL MD Sep 08, 2020 11:54
[2020-09-08] MEDS ORDERED: fentaNYL 100 MCG/2 ML INJECTION (J3010) As Ordered ONE (12:06)
[2020-09-08] MEDS ORDERED: MIDAZOLAM INJ 2MG/2ML VIAL (J2250 PER 1MG) As Ordered ONE ×2 (12:06→12:07)
--- NOTE | 2020-09-08 12:15 | IPN ---
PROGRESS NOTE DATE: 09/08/2020 SUBJECTIVE: Mr. Flood was seen and examined at the bedside this morning. He had been sleeping. He denies any complaints. He was able to sleep well. The plan for a transesophageal echo today at noon was discussed with him and all of his questions were answered. His problem continues to be quite perplexing with a constellation of symptoms that he is having. OBJECTIVE: VITAL SIGNS: Temperature 97.6, pulse 73, respiratory rate of 17, blood pressure 145/93, and he is saturating 97% on room air. GENERAL: He is laying flat in bed, calm, cooperative, in no acute distress. He appears somewhat disheveled. HEENT: Normocephalic, atraumatic. Extraocular movements are intact. Pupils equally round and reactive to light. NECK: Supple with no thyromegaly. No lymphadenopathy. No bruits. CHEST: Clear to auscultation bilaterally with no adventitious breath sounds appreciated. CARDIOVASCULAR: Regular rate and rhythm with no murmurs, rubs or gallops appreciated. ABDOMEN: Obese, soft and nontender to palpation. Positive bowel sounds. No organomegaly. EXTREMITIES: He moves all extremities well. PSYCH: He is awake, alert and oriented x3. Normal mood and normal affect. NEUROLOGIC: He has no obvious focal deficits. SKIN: He has several tattoos on his right shoulder and left arm. He does have a small lesion on the left side of his nose which is currently bleeding. LABORATORY DATA: Today, his white blood cell count is down to 14.5 from 15.6. Hemoglobin is 8.8, hematocrit is 27.0 and platelet count is 257,000. On chemistries his sodium is 133, potassium is 4.3, chloride is 97, carbon dioxide is 26, BUN is 44 and creatinine is 9.29. Fasting glucose is 98. His calcium is 9.1. His rheumatologic labs are pending at this time including RONY, C-ANCA, P-ANCA, Wild antibody, anti-double stranded antibody, complement level, C3 and C4 are normal. He did have a negative HIV test. Yesterday, he did undergo CT angiography of the chest which showed no significant atherosclerotic plaquing seen in the aorta. No CT evidence of left atrial or left ventricular thrombus. No CT evidence of pulmonary embolus and no active disease. He also had a CT angiography of the abdominal aorta arteries which showed a surprisingly amount of diffuse arterial calcification, no large vessel occlusion, irregular thrombus or aneurysm was seen. It states I suspect there are some dorsalis pedis artery short-segment occlusions bilaterally. Both renal arteries duplicated and the smaller accessory renal artery to each renal lower pole appears stenotic at their origin. The inferior mesenteric artery appears stenotic at its origin. ASSESSMENT: This is a 35-year-old male with endstage renal disease on dialysis and congestive heart failure with EF measured at 25 to 35% who presented with bleeding and gangrenous toes with constellation of symptoms concerning for rheumatologic disease versus infectious etiology. PLAN: We will take this patient for transesophageal echocardiogram today at noon in order to rule out the possibility of endocarditis. It is possible as the patient has gangrenous toes and may have thrown some septic emboli from the heart valves but at this point seeming somewhat unlikely. In the meantime, he should be NPO until this procedure can be done at which point we will determine the next steps of management. JOAQUIN
--- NOTE | 2020-09-08 13:49 | T-ECHO ---
TRANSESOPHAGEAL ECHO DATE: 09/08/2020 REFERRING PHYSICIANS: Dr. Garcia and Dr. Briceno INDICATION: Peripheral embolization, suspicion for cardiac course of emboli. Mr. Flood is a pleasant, 35-year-old man who presented to [facility] with blue toes. There was suspicion for embolic event. Unfortunately, so far the evaluation failed to reveal any obvious source. Consequently, transesophageal echocardiogram was requested even though there is no additional clinical evidence for endocarditis. I spoke with the patient about the nature of the procedure, its rationale, potential complications yesterday and then again this morning. The patient was examined and found stable for the procedure. He did sign appropriate consent already yesterday. Procedure was performed in endoscopy suite. The patient presented in fasting condition. After appropriate timeout was taken, his posterior pharynx was anesthetized using viscous lidocaine and cetacaine spray. After that he was positioned in left lateral decubitus position. Bite block was placed. After appropriate level of sedation was accomplished, a probe was introduced without difficulty. After appropriate images were obtained, it was withdrawn. There were no immediate complications and the patient tolerated the procedure well. FINDINGS: Left ventricle is globally hypokinetic. I estimate EF approximately 25-30%. I do not appreciate any distinct segmental wall motion abnormalities. Mitral valve is structurally normal. There is some redundancy on one of the mitral chords but no visualized vegetation. There are minimal calcifications in the chordal apparatus. By 2D imaging, there is only trace mitral insufficiency and no stenosis. Left atrial appendage is relatively small and free of thrombi. Pulse wave Doppler imaging reveals normal flow. There is also normal flow in both left and right-sided pulmonary veins. Atrial septum is intact based on 2D and color Doppler imaging. Injection of agitated saline reveals no evidence for shunt across the septum. Tricuspid valve was relatively poorly visualized but grossly appears normal. No vegetations are seen by color Doppler imaging. There is no insufficiency or stenosis. Pulmonary valve was well seen. It appears normal. Trace insufficiency is seen. Aortic valve is tricuspid. There is a dense calcification in the raphe but mobility of leaflets is preserved. No mobile echo densities are seen. By color Doppler imaging, there is no stenosis or insufficiency. Visualized segment of ascending aorta, aortic arch and descending aorta reveal diffuse but nonobstructive atherosclerosis. No ulcerations or thrombi are seen. CONCLUSIONS: 1. Left ventricular systolic dysfunction with global hypokinesis and estimated LVEF approximately 25-30%. 2. No hemodynamically significant valvular disease. 3. No visualized vegetations. 4. Left atrial appendage free of thrombi. 5. Normal flow in both right-sided and left-sided pulmonary veins. 6. Intact atrial septum on 2D, color Doppler and after injection agitated saline. 7. Mild atherosclerosis of thoracic aorta. 8. No obvious source of cardioembolic event. 25 mcg of fentanyl and 4 mg of versed both in IV forms were used for sedation. MTDD
[2020-09-08 14:42] LABS: HEPATITIS B SURFACE ANTIBODY NEGATIVE (POSITIVE)
[2020-09-08 14:53] LABS: HEPATITIS B SURFACE ANTIGEN NEGATIVE (NEGATIVE)
[2020-09-08 15:21] LABS: HEPATITIS C VIRUS ABY INDEX 0.2 INDEX (<0.8)
[2020-09-08 15:22] LABS: HEPATITIS B CORE ANTIBODY IGM NEGATIVE (NEGATIVE)
[2020-09-08 17:44] VITALS: BP 138/92
[2020-09-08] MEDS: PERCOCET 5MG/325MG TAB PO PRN ×2 (17:44→21:48)
[2020-09-08] MEDS: PANTOPRAZOLE 20 MG TAB PO SCH (21:46)
[2020-09-08] MEDS: ATORVASTATIN 20 MG TAB PO SCH (21:46)
[2020-09-08 22:00] VITALS: BP 141/82
[2020-09-09 06:00] VITALS: BP 121/66
[2020-09-09 07:40] VITALS: BP 120/64
[2020-09-09] MEDS: PERCOCET 5MG/325MG TAB PO PRN ×3 (07:45→22:56)
--- NOTE | 2020-09-09 08:52 | IPNPDOC ---
Date Seen The patient was seen on 09/09/20. Progress Note Patient seen and examined. Says he is feeling okay today. So far vascular workup for source of emboli all negative, including CTA chest abdomen and pelvis with runoff and CASIE. Still unclear the source of gangrenous toes and severe distal heavily calcified peripheral vascular disease bilateral lower extremities and upper extremities. New rheumatologic workup pending. Patient will see Dr. Corral outpatient. Per Dr. Bahena, there is no urgency for further surgical intervention on the feet yet, and it is still unclear if he could heal TMA. So far, we are all bit baffled how such a young man progress so rapidly to end-stage renal disease and severe peripheral vascular disease when he was asymptomatic of all of this four months ago. If ongoing workup is all negative, and we have exhausted our ability to identify an etiology for the patient's situation, it may be helpful to arrange for him to have a workup/second opinion somewhere like [facility]. We will continue to follow. We appreciate the opportunity to participate in the care of this patient. VS, I&O, 24H, [place] Vital Signs/I&O Vital Signs Date Time Temp Pulse Resp B/P (MAP) Pulse Ox O2 Delivery O2 Flow Rate FiO2 09/09/20 07:45 18 Room Air 09/09/20 06:00 97.0 65 121/66 (84) 98 I&O- Last 24 Hours up to 6 AM 09/09/20 06:00 Intake Total 440 ml Output Total 1500 ml Balance -1060 ml Laboratory Data 24[facility]S Laboratory Tests 2 09/08/20 13:42: Total Protein (PEP) 8.0, Hepatitis B Surface Antigen NEGATIVE, Hepatitis B Surface Antibody NEGATIVE, Hepatitis B Core IgM Antibody NEGATIVE, Hepatitis C Antibody Index 0.2 Microbiology Microbiology 08/30/20 Blood Culture - Final, Complete NO GROWTH AFTER 5 DAYS 08/30/20 Blood Culture - Final, Complete NO GROWTH AFTER 5 DAYS 08/30/20 Urine Culture - Final, Complete KAROLINA JOSE MD Sep 09, 2020 08:52
[2020-09-09] MEDS: ASPIRIN 81MG ENTERIC TABLET PO SCH (09:06)
[2020-09-09] MEDS: (RENVELA) SEVELAMER **CARBONate** 800 MG TAB PO SCH ×3 (09:07→17:32)
[2020-09-09] MEDS: ENTRESTO 49-51MG TABLET (SACUBITRIL/VALSARTAN) PO SCH ×2 (09:07→21:16)
[2020-09-09] MEDS: DOCUSATE SODIUM 100MG CAPSULE PO SCH (09:08)
[2020-09-09] MEDS: CARVedilol 12.5 MG TAB PO SCH ×2 (09:08→21:18)
[2020-09-09] MEDS: PIPERACILLIN/TAZOBACTAM SOD 4.5 GM in D5W MINI-BAG PLUS 50 ML IV SCH ×2 (09:09→21:16)
[2020-09-09 09:32] LABS: HEMATOCRIT 26.8 % (42.0-52.0); HEMOGLOBIN 8.7 g/dl (13.5-17.5); MEAN CORPUSCULAR HEMOGLOBIN 29.1 pg (27.0-33.0); MEAN CORPUSCULAR HGB CONC 32.5 g/dl (32.0-36.5); MEAN CORPUSCULAR VOLUME 89.6 fl (80.0-96.0); PLATELET COUNT, AUTOMATED 255 10^3/uL (150-450); RED BLOOD COUNT 2.99 10^6/uL (4.30-6.10); WHITE BLOOD COUNT 12.9 10^3/uL (4.0-10.0)
[2020-09-09 09:54] LABS: CALCIUM LEVEL 9.1 MG/DL (8.5-10.1); CREATININE FOR GFR 7.08 MG/DL (0.70-1.30); GLOMERULAR FILTRATION RATE 9.4 (>60)
--- NOTE | 2020-09-09 11:35 | IPNPDOC ---
Text Note Date of Service The patient was seen on 09/09/20. NOTE Subjective: Patient was seen and examined this morning at bedside. And his CASIE done yesterday which was unrevealing for any thrombus. Feeling the same as yesterday no changes. Objective: Constitutional: Awake and alert, in no apparent distress ENT: Sclera are clear. Mucosa is moist. Respiratory: Lungs CTA bilaterally. No respiratory distress. Cardiovascular: RRR S1 and S2 are normal, no murmur Gastrointestinal: Abdomen is soft, non distended, non tender, BS present. Musculoskeletal: No lower extremity edema. No joint deformities. Neurologic: No focal neurological deficit. Mental Status: A&O x3, normal affect Skin: He has gangrene of the toes which is well delineated with a black eschar. There is no erythema or purulent discharge. Clean dressing over both feet. Assessment/plan: 35-year-old male history of ESRD on HD and worsening bilateral gangrenous toes admitted for progression of his condition without known underlying etiology. Admitted for further medical workup. Initially admitted for lightheadedness and nosebleed found to have a hemoglobin of 6.6 at time of admission which has recovered with blood transfusion. So far workup has been negative to identify the source of possible emboli to his feet. CASIE was done 10/06 2020 was also negative. Patient is currently undergoing rheumatological workup with Dr. Corral. If all her workup in the being negative patient may have to be transferred to a more specialized center such as [facility] for further workup. # Bilateral toe gangrene: s/p angioplasty of the right posterior tibial artery and medial plantar artery and right peroneal artery by vascular surgery. Unclear etiology. CASIE unrevealing for vegetation/thrombus. ID Dr Briceno consulted, continue Zosyn for now. Podiatry following no need for urgent amputation at this time doesn't appear actively infected Will eventually need amputation. Dr. Mcmanus vascular surgery consulted, will delay his AV graft formation for now. Rheumatology Dr. Valeria Corral consulted, recommended tests ordered, will fu with patient in clinic. Currently differential is endocarditis/embolic phenomena versus rheumatological disease process. Prior rheumatology workup has been negative including RONY. # PVD: Patient has been revascularized and followed by vascular surgery. Currently on anti-coagulation. # CHFrEF: Compensated. Has dilated cardiomyopathy on echo. On maintenance dialysis. Resume home medications. # ESRD: Receives hemodialysis 3 times a week nephrology is following and managing his HD. # Anemia: Patient has required 5 units of PRBC there is no obvious GI bleed. He was started on erythropoietin by nephrology. Monitor CBC. A [facility] Hospitalist Silvia KAPOOR, I+O Silvia KAPOOR I+O Laboratory Tests 09/09/20 09:15 Vital Signs Date Time Temp Pulse Resp B/P (MAP) Pulse Ox O2 Delivery O2 Flow Rate FiO2 09/09/20 08:30 18 09/09/20 07:45 Room Air 09/09/20 07:40 97.2 73 120/64 (82) 99 I&O- Last 24 Hours up to 6 AM 09/09/20 06:00 Intake Total 440 ml Output Total 1500 ml Balance -1060 ml LORA MICHEL MD Sep 09, 2020 11:35
--- NOTE | 2020-09-09 11:52 | IPN ---
PROGRESS NOTE DATE: 09/09/2020 SUBJECTIVE: Patient was seen and examined at the bedside today morning. He is afebrile, hemodynamically stable. He was dialyzed yesterday; 1.5 liters of fluid was removed. He denies any active complaints at this time. OBJECTIVE: VITAL SIGNS: Temperature 97.2 degrees Fahrenheit, blood pressure 120/64, pulse 73, respiratory rate 14, saturating 99% on room air. INTAKE AND OUTPUT: Urine output is not recorded. Ultrafiltration with hemodialysis was 1.5 liters. PHYSICAL EXAMINATION: GENERAL: Patient is awake, alert, oriented times three, laying in bed, no apparent distress. HEAD AND NECK EXAM: Extraocular muscles intact. Pupils equally round and reactive to light. Mucous membranes are moist. Neck is supple. There is no jugular venous distention (JVD). He has a tunneled dialysis catheter. CARDIOVASCULAR: S1, S2. Regular rate. No edema of the bilateral lower extremities. RESPIRATORY: Chest is clear to auscultation bilaterally. Bilateral equal air entry. No rales or rhonchi. ABDOMEN: Soft. Positive bowel sounds. Nontender. No organomegaly. MUSCULOSKELETAL: He had dressings on the bilateral feet because of gangrene. CENTRAL NERVOUS SYSTEM (PHOTOLITHOGRAPHER): No focal deficits. Power is 5/5 in all extremities. LABORATORY REVIEW: CBC showed a WBC 12.9, hemoglobin 8.7, platelets at 155. BMP showed sodium 135, potassium 4, chloride 100, bicarbonate 27, BUN 33, creatinine 7. CURRENT INPATIENT MEDICATIONS: Patient's medications were all reviewed by myself. There is no significant change in the medications today. He continues to be on intravenous (IV) Zosyn. ASSESSMENT AND PLAN: 1. End-stage renal disease. Patient was dialyzed yesterday. Next hemodialysis session will be done tomorrow morning. 2. Anemia in end-stage renal disease. Continue Aranesp. Transfuse as needed for hemoglobin less than 8. 3. Peripheral vascular disease and gangrene of the bilateral lower extremity toes. Patient has arterial calcifications on the CT angiogram. Continue IV Zosyn. Vascular surgery and Podiatry are on board. Vasculitis workup done during previous hospitalization was negative. 4. Hypertension with hypertensive heart disease and dilated cardiomyopathy. Fluid was removed with dialysis. He continues to be on Coreg and Entresto and he is tolerating them well.
[2020-09-09 14:00] VITALS: BP 144/78
[2020-09-09 14:10] VITALS: BP 118/60
[2020-09-09] MEDS: PANTOPRAZOLE 20 MG TAB PO SCH (21:16)
[2020-09-09] MEDS: ATORVASTATIN 20 MG TAB PO SCH (21:16)
[2020-09-09 22:00] VITALS: BP 166/81
[2020-09-10 06:00] VITALS: BP 159/92
[2020-09-10 06:30] LABS: HEMATOCRIT 25.7 % (42.0-52.0); HEMOGLOBIN 8.1 g/dl (13.5-17.5); MEAN CORPUSCULAR HEMOGLOBIN 28.6 pg (27.0-33.0); MEAN CORPUSCULAR HGB CONC 31.5 g/dl (32.0-36.5); MEAN CORPUSCULAR VOLUME 90.8 fl (80.0-96.0); PLATELET COUNT, AUTOMATED 268 10^3/uL (150-450); RED BLOOD COUNT 2.83 10^6/uL (4.30-6.10); WHITE BLOOD COUNT 10.8 10^3/uL (4.0-10.0)
[2020-09-10] MEDS: ENTRESTO 49-51MG TABLET (SACUBITRIL/VALSARTAN) PO SCH ×2 (06:36→21:33)
[2020-09-10] MEDS: CARVedilol 12.5 MG TAB PO SCH ×2 (06:36→21:34)
[2020-09-10] MEDS: ASPIRIN 81MG ENTERIC TABLET PO SCH (06:36)
[2020-09-10] MEDS: DOCUSATE SODIUM 100MG CAPSULE PO SCH (06:36)
[2020-09-10] MEDS: PERCOCET 5MG/325MG TAB PO PRN ×3 (06:37→23:43)
[2020-09-10] MEDS: PIPERACILLIN/TAZOBACTAM SOD 4.5 GM in D5W MINI-BAG PLUS 50 ML IV SCH ×2 (06:37→21:33)
[2020-09-10 06:59] LABS: CALCIUM LEVEL 8.9 MG/DL (8.5-10.1); CREATININE FOR GFR 8.91 MG/DL (0.70-1.30); GLOMERULAR FILTRATION RATE 7.2 (>60); POTASSIUM SERUM 3.8 MEQ/L (3.5-5.1)
[2020-09-10] MEDS: (RENVELA) SEVELAMER **CARBONate** 800 MG TAB PO SCH ×3 (08:00→17:49)
--- NOTE | 2020-09-10 11:33 | IPNPDOC ---
Text Note Date of Service The patient was seen on 09/10/20. NOTE Subjective: Patient was seen and examined this morning at bedside. And his CASIE done yesterday which was unrevealing for any thrombus. Feeling the same as yesterday no changes. Objective: Constitutional: Awake and alert, in no apparent distress ENT: Sclera are clear. Mucosa is moist. Respiratory: Lungs CTA bilaterally. No respiratory distress. Cardiovascular: RRR S1 and S2 are normal, no murmur Gastrointestinal: Abdomen is soft, non distended, non tender, BS present. Musculoskeletal: No lower extremity edema. No joint deformities. Neurologic: No focal neurological deficit. Mental Status: A&O x3, normal affect Skin: He has gangrene of the toes which is well delineated with a black eschar. There is no erythema or purulent discharge. Clean dressing over both feet. Assessment/plan: 35-year-old male history of ESRD on HD and worsening bilateral gangrenous toes admitted for progression of his condition without known underlying etiology. Admitted for further medical workup. Initially admitted for lightheadedness and nosebleed found to have a hemoglobin of 6.6 at time of admission which has recovered with blood transfusion. So far workup has been negative to identify the source of possible emboli to his feet. CASIE was done 10/06 2020 was also negative. Patient is currently undergoing rheumatological workup with Dr. Corral. If all her workup in the being negative patient may have to be transferred to a more specialized center such as [facility] for further workup. # Bilateral toe gangrene: s/p angioplasty of the right posterior tibial artery and medial plantar artery and right peroneal artery by vascular surgery. Unclear etiology. CASIE unrevealing for vegetation/thrombus. ID Dr Briceno consulted, continue Zosyn for now. Podiatry following no need for urgent amputation at this time doesn't appear actively infected Will eventually need amputation. Dr. Mcmanus vascular surgery consulted, will delay his AV graft formation for now. Rheumatology Dr. Valeria Corral consulted, recommended tests ordered, will fu with patient in clinic. Currently differential is endocarditis/embolic phenomena versus rheumatological disease process. Prior rheumatology workup has been negative so far. I discussed various options with the patient including attempt to transfer to [facility] if they would accept him for further workup versus going home however is may be difficult due to difficult ambulation on his bilateral toe gangrene that might worsen during this time and the risk of spread of infection. # PVD: Patient has been revascularized and followed by vascular surgery. Currently on anti-coagulation. # CHFrEF: Compensated. Has dilated cardiomyopathy on echo. On maintenance dialysis. Resume home medications. # ESRD: Receives hemodialysis 3 times a week nephrology is following and managing his HD. # Anemia: Patient has required 5 units of PRBC there is no obvious GI bleed. He was started on erythropoietin by nephrology. Monitor CBC. A [facility] Hospitalist Silvia KAPOOR, I+O VSSilvia I+O Laboratory Tests 09/10/20 05:52 Vital Signs Date Time Temp Pulse Resp B/P (MAP) Pulse Ox O2 Delivery O2 Flow Rate FiO2 09/10/20 07:48 18 Room Air 09/10/20 06:36 77 159/92 09/10/20 06:00 97.2 98 I&O- Last 24 Hours up to 6 AM 09/10/20 06:00 Intake Total 1690 ml Output Total 0 ml Balance 1690 ml LORA MICHEL MD Sep 10, 2020 11:33
--- NOTE | 2020-09-10 12:16 | IPN ---
PROGRESS NOTE DATE: 09/01/2020 SUBJECTIVE: Patient is afebrile, hemodynamically stable. Today is patient's regular day of dialysis. He denies any active complaints at this time. OBJECTIVE: VITAL SIGNS: Temperature 97.2 degrees Fahrenheit, blood pressure 152/59, pulse 77, respiratory rate 17, saturating 98% on room air. INTAKE AND OUTPUT: There is no urine output recorded. Weight in the bed scale is not available. PHYSICAL EXAMINATION: GENERAL: Patient is awake, alert, oriented times three, laying in bed, no apparent distress. HEAD AND NECK EXAM: Extraocular muscles intact. Pupils equally round and reactive to light. Mucous membranes are moist. Neck is supple. He has a tunneled hemodialysis catheter. CARDIOVASCULAR: S1, S2. Regular rate. No edema of the bilateral lower extremities. RESPIRATORY: Chest is clear to auscultation bilaterally. Bilateral equal air entry. No rales or rhonchi. ABDOMEN: Soft. Obese. Positive bowel sounds. Nontender. No organomegaly. MUSCULOSKELETAL: He has dressings on the bilateral feet. CENTRAL NERVOUS SYSTEM (NEWS LIBRARIAN): No focal deficits. Power is 5/5 in all extremities. LABORATORY DATA: CBC showed WBC 10.8, hemoglobin 8.1, platelets 268. BMP showed sodium 140, potassium 3.8, chloride 102, bicarbonate 26, BUN 39, creatinine 8.9. CURRENT INPATIENT MEDICATIONS: The patient's medications were all reviewed by myself. No significant change in the medications as compared with yesterday. ASSESSMENT AND PLAN: 1. End-stage renal disease. Patient will be dialyzed according to his schedule today in the afternoon. Ultrafiltration goal will be around 1-5 liters. 2. Anemia in end-stage renal disease. Hemoglobin level is 8.1, which is suboptimal and it is dropping. Patient is already on Aranesp. I am going to give him 1 unit of blood transfusion. 3. Peripheral vascular disease and gangrene of the toes in lower extremities. Patient continues to be on Zosyn. Further management is as per podiatry. 4. Dilated cardiomyopathy. Continue current dose of Coreg and Entresto. Volume status is optimized with dialysis. 5. Chronic kidney disease/mineral bone disease. Continue current dose of Renvela.
[2020-09-10 13:45] VITALS: BP 143/93
[2020-09-10 14:00] VITALS: BP 169/101
[2020-09-10 14:27] LABS: ALBUMIN 2.87 GM/DL (3.29-5.55); ALBUMIN % 35.9 % (55.8-66.1); ALPHA-1-GLOBULIN % 6.8 % (2.9-4.9); ALPHA-1-GLOBULINS 0.54 GM/DL (0.17-0.41); ALPHA-2-GLOBULINS 0.93 GM/DL (0.42-0.99); ALPHA-2-GLOBULINS % 11.6 % (7.1-11.8); BETA-1-GLOBULINS 0.79 GM/DL (0.28-0.60); BETA-1-GLOBULINS % 9.9 % (4.7-7.2); BETA-2-GLOBULINS % 6.3 % (3.2-6.5); GAMMA GLOBULIN % 29.5 % (11.1-18.8); GAMMA GLOBULINS 2.36 GM/DL (0.65-1.58)
[2020-09-10 15:00] VITALS: BP 170/108
[2020-09-10 15:30] VITALS: BP 165/108
[2020-09-10] MEDS: PANTOPRAZOLE 20 MG TAB PO SCH (21:33)
[2020-09-10] MEDS: ATORVASTATIN 20 MG TAB PO SCH (21:33)
[2020-09-10 22:00] VITALS: BP 142/91
[2020-09-11 06:00] VITALS: BP 153/86
[2020-09-11 06:29] LABS: HEMATOCRIT 29.9 % (42.0-52.0); HEMOGLOBIN 9.5 g/dl (13.5-17.5); MEAN CORPUSCULAR HEMOGLOBIN 28.4 pg (27.0-33.0); MEAN CORPUSCULAR HGB CONC 31.8 g/dl (32.0-36.5); MEAN CORPUSCULAR VOLUME 89.3 fl (80.0-96.0); PLATELET COUNT, AUTOMATED 276 10^3/uL (150-450); RED BLOOD COUNT 3.35 10^6/uL (4.30-6.10); WHITE BLOOD COUNT 11.6 10^3/uL (4.0-10.0)
[2020-09-11 07:08] LABS: CALCIUM LEVEL 8.7 MG/DL (8.5-10.1); CREATININE FOR GFR 6.84 MG/DL (0.70-1.30); GLOMERULAR FILTRATION RATE 9.7 (>60); POTASSIUM SERUM 4.2 MEQ/L (3.5-5.1)
[2020-09-11] MEDS: DOCUSATE SODIUM 100MG CAPSULE PO SCH (10:06)
[2020-09-11] MEDS: ASPIRIN 81MG ENTERIC TABLET PO SCH (10:07)
[2020-09-11] MEDS: ENTRESTO 49-51MG TABLET (SACUBITRIL/VALSARTAN) PO SCH ×2 (10:07→20:12)
[2020-09-11] MEDS: (RENVELA) SEVELAMER **CARBONate** 800 MG TAB PO SCH ×3 (10:07→17:47)
[2020-09-11] MEDS: PERCOCET 5MG/325MG TAB PO PRN ×3 (10:08→21:49)
[2020-09-11] MEDS: CARVedilol 12.5 MG TAB PO SCH ×2 (10:09→20:13)
[2020-09-11] MEDS: PIPERACILLIN/TAZOBACTAM SOD 4.5 GM in D5W MINI-BAG PLUS 50 ML IV SCH ×2 (10:09→20:12)
[2020-09-11] MEDS ORDERED: ANEXSIA, NORCO 7.5MG/325MG TABLET(HYDROCODONE/APAP) As Ordered ONE (10:19)
--- NOTE | 2020-09-11 13:29 | IPN ---
PROGRESS NOTE DATE: 09/11/2020 SUBJECTIVE: Patient is seen and examined this morning at the bedside. He offers no complaints. He was dialyzed yesterday without any issues. There was 1.5 liters of fluid removed. His repeat serologies are still pending, but when I look back at his old records, his antinuclear antibody (RONY), antineutrophilic cytoplasmic antibody (ANCA), anti-(glomerular basement membrane) GBM, and complements and further studies were all negative. VITAL SIGNS: Temperature 97.8, pulse 76, respiratory rate 18, blood pressure 153/86, saturating 98% on room air. Intake yesterday was 1860. Dialysis yesterday removed 1500. Weight in the bed scale today is not recorded. GENERAL: Patient is seen awake, alert, oriented, comfortable young male in no apparent distress. Extraocular muscles are intact. Tongue is moist. Neck is supple. There is a tunneled Perm-A-Cath present in the left chest wall. HEART: Sounds are regular, S1, S2. There is no edema of the bilateral lower extremities. RESPIRATORY: Lungs are clear to auscultation bilaterally. No crackle, rale, or rhonchus. He is seen comfortable on room air. ABDOMEN: Soft and nontender. There are bowel sounds. EXTREMITIES: There is no edema noted. He has dressings on his feet, which I did not remove. SKIN: Normal temperature and turgor. NEUROLOGIC: Oriented times three. No focal deficit. LABORATORY DATA: Sodium 138, potassium 4.2, bicarbonate 27, BUN 27, creatinine 6.8. Hemoglobin 9.5, white count 11.6. INPATIENT MEDICATIONS: Reviewed by myself. Patient continues on: - Tylenol as needed, aspirin 81 mg by mouth daily - Lipitor 20 mg by mouth every night - carvedilol 25 mg by mouth twice a day - Aranesp with dialysis - docusate - Protonix 20 mg by mouth daily - Zosyn 4.5 grams intravenous (IV) every 12 hours - Entresto one tablet by mouth twice daily - Renvela 800 mg by mouth with meals. PROBLEMS: 1. End-stage renal disease, on hemodialysis on a Sunday, Sunday, Sunday schedule. Patient was initiated on dialysis in June 2020. He is dialyzing via Perm-A-Cath. I did review his kidney biopsy and his old serologies from a prior admission, and he has typical features of end-stage kidney on his biopsy, including glomerulosclerosis, interstitial fibrosis, and tubular atrophy, and repeat serologic workup has been ordered by rheumatology for further evaluation to see if there is any unknown autoimmune component to his presentation. His next dialysis will be on Sunday. His electrolytes and volume status are acceptable. 2. Anemia and end-stage renal disease. He was transfused 1 unit packed red blood cells with dialysis yesterday. He continues on Aranesp. Goal hemoglobin is 10-11. 3. Dilated cardiomyopathy. The patient continues on beta kim and Entresto. Echocardiogram from September 08 is reviewed with left ventricular ejection fraction of 25%-30%. His volume status is presently optimized with principal regulation via hemodialysis. 4. Bilateral toe gangrene, status post angioplasty and followed by vascular surgery. He is on aspirin and statin. Transesophageal echocardiogram (CASIE) is noted. Podiatry is following as well, and rheumatology is further working him up. I agree with consideration of further biopsy possibly to evaluate for polyarteritis nodosa.
[2020-09-11 14:00] VITALS: BP 122/74
[2020-09-11 14:09] LABS: ANCA-ATYPICAL <1:20 titer (Neg:<1:20); ANTI DS-DNA AB Negative (Negative); ANTI JO-1 ANTIBODIES <20 Units (<20); ANTI SMITH(Sm) AB <20 Units (<20); ANTINUCLEAR ANTIBODIES DIRECT Negative (Negative); COMPLEMENT TOTAL (CH50) > 60 U/mL (>41); CYCLIC CITRULLINATED PEPTIDE 6 units (0-19); CYTOPLASMIC NEUTROP AB ANCA-C <1:20 titer (Neg:<1:20); PERINUCLEAR AB ANCA-P <1:20 titer (Neg:<1:20)
--- NOTE | 2020-09-11 16:21 | IPNPDOC ---
Text Note Date of Service The patient was seen on 09/11/20. NOTE Subjective: Patient was seen and examined this morning at bedside. And his CASIE done yesterday which was unrevealing for any thrombus. Feeling the same as yesterday no changes. Objective: Constitutional: Awake and alert, in no apparent distress ENT: Sclera are clear. Mucosa is moist. Respiratory: Lungs CTA bilaterally. No respiratory distress. Cardiovascular: RRR S1 and S2 are normal, no murmur Gastrointestinal: Abdomen is soft, non distended, non tender, BS present. Musculoskeletal: No lower extremity edema. No joint deformities. Neurologic: No focal neurological deficit. Mental Status: A&O x3, normal affect Skin: He has gangrene of the toes which is well delineated with a black eschar. There is no erythema or purulent discharge. Clean dressing over both feet. Assessment/plan: 35-year-old male history of ESRD on HD and worsening bilateral gangrenous toes admitted for progression of his condition without known underlying etiology. Admitted for further medical workup. Initially admitted for lightheadedness and nosebleed found to have a hemoglobin of 6.6 at time of admission which has recovered with blood transfusion. So far workup has been negative to identify the source of possible emboli to his feet. CASIE was done 09/08/2020 was also negative. Patient is currently undergoing rheumatological workup with Dr. Corral. If all her workup in the being negative patient may have to be transferred to a more specialized center such as [facility] for further workup. # Bilateral toe gangrene: s/p angioplasty of the right posterior tibial artery and medial plantar artery and right peroneal artery by vascular surgery. Unclear etiology. CASIE unrevealing for vegetation/thrombus. ID Dr Briceno consulted, continue Zosyn for now. Podiatry following no need for urgent amputation at this time doesn't appear actively infected Will eventually need amputation. Dr. Mcmanus vascular surgery consulted, will delay his AV graft formation for now. Rheumatology Dr. Valeria Corral consulted, recommended tests ordered, will fu with patient in clinic. Prior rheumatology workup has been negative so far. Consideration to this being polyarteritis nodosa has been brought up as a remote possibility, I called the [facility] [employer] software developer to see if they would be willing to do a biopsy & she informed me that the PA's do not take inpatient call/consults, and the Attending will not be on until next Sunday. # PVD: Patient has been revascularized and followed by vascular surgery. Currently on anti-coagulation. # CHFrEF: Compensated. Has dilated cardiomyopathy on echo. On maintenance dialysis. Resume home medications. # ESRD: Receives hemodialysis 3 times a week nephrology is following and managing his HD. # Anemia: Patient has recieved multiple units of PRBC while inpatient there is no obvious GI bleed. Was started on erythropoietin by nephrology. Monitor CBC, transfuse as needed. Disposition: Pending rheumatologic work up at this point. Perhaps skin biopsy for YA next week. Consideration may be made to transfer to larger facility, however this may be difficult without a diagnosis. We may need to do this as an outpatient. VS,Sulemane, I+O VS, Sulemane, I+O Laboratory Tests 09/11/20 06:15 Vital Signs Date Time Temp Pulse Resp B/P (MAP) Pulse Ox O2 Delivery O2 Flow Rate FiO2 09/11/20 14:00 97.2 74 19 122/74 (90) 97 Room Air I&O- Last 24 Hours up to 6 AM 09/11/20 06:00 Intake Total 2340 ml Output Total 1500 ml Balance 840 ml VIKY TAYLOR DO Sep 11, 2020 16:21
[2020-09-11] MEDS: PANTOPRAZOLE 20 MG TAB PO SCH (20:12)
[2020-09-11] MEDS: ATORVASTATIN 20 MG TAB PO SCH (20:12)
[2020-09-11 22:00] VITALS: BP 155/98
[2020-09-12 06:00] VITALS: BP 155/97
[2020-09-12 06:50] LABS: HEMATOCRIT 28.9 % (42.0-52.0); HEMOGLOBIN 9.3 g/dl (13.5-17.5); MEAN CORPUSCULAR HEMOGLOBIN 29.2 pg (27.0-33.0); MEAN CORPUSCULAR HGB CONC 32.2 g/dl (32.0-36.5); MEAN CORPUSCULAR VOLUME 90.9 fl (80.0-96.0); PLATELET COUNT, AUTOMATED 257 10^3/uL (150-450); RED BLOOD COUNT 3.18 10^6/uL (4.30-6.10); WHITE BLOOD COUNT 11.4 10^3/uL (4.0-10.0)
[2020-09-12 07:16] LABS: CALCIUM LEVEL 8.9 MG/DL (8.5-10.1); CREATININE FOR GFR 9.38 MG/DL (0.70-1.30); GLOMERULAR FILTRATION RATE 6.8 (>60); POTASSIUM SERUM 3.9 MEQ/L (3.5-5.1)
[2020-09-12] MEDS: (RENVELA) SEVELAMER **CARBONate** 800 MG TAB PO SCH ×3 (08:28→18:08)
[2020-09-12] MEDS: DOCUSATE SODIUM 100MG CAPSULE PO SCH (08:28)
[2020-09-12] MEDS: PIPERACILLIN/TAZOBACTAM SOD 4.5 GM in D5W MINI-BAG PLUS 50 ML IV SCH ×2 (08:28→21:44)
[2020-09-12] MEDS: ENTRESTO 49-51MG TABLET (SACUBITRIL/VALSARTAN) PO SCH ×2 (08:28→21:43)
[2020-09-12] MEDS: CARVedilol 12.5 MG TAB PO SCH ×2 (08:28→21:44)
[2020-09-12] MEDS: ASPIRIN 81MG ENTERIC TABLET PO SCH (08:28)
[2020-09-12] MEDS: PERCOCET 5MG/325MG TAB PO PRN ×3 (08:30→21:45)
--- NOTE | 2020-09-12 10:55 | IPN ---
PROGRESS NOTE DATE: 09/10/2020 Will was seen in dialysis with Dr. Benedict for evaluation of gangrene of the toes. He does not have any new complaints other than some pain in his toes. On the right side is worse than the left. He was also noted to have some discoloration of his fingers on the hand, his left hand ring finger distally. No nausea, vomiting, or diarrhea. No fever or chills. LABORATORY DATA: White count is 10.8, hemoglobin 8.1, hematocrit 25.7, platelets 268. ESR 129. Sodium 140, potassium 3.8, chloride 102, bicarbonate 26, BUN 39, creatinine 8.91, glucose 85, calcium 8.9. 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 Hepatitis B surface antigen. Surface antibody negative. Hepatitis C antibody negative. Urine culture negative. Blood culture negative. SOCIAL HISTORY: Patient denies any exposure to any pets. No bites. No animals. Patient goes to [employer] and is able usually to exercise on the treadmill for 20 minutes at a time without any calf claudication before this happened to him in June. He does not have a family history of autoimmune disease. His mother had breast cancer and diabetes. PHYSICAL EXAMINATION: Temperature is 96.3, pulse 69, blood pressure 165/108, oxygen saturation 98% on room air. HEART: Normal S1, S2. No murmurs appreciated. LUNGS: Clear. No wheezes, rales, or rhonchi. ABDOMEN: Soft, nontender. No hepatosplenomegaly. EXTREMITIES: No edema. There is black discoloration of all the left foot toes. There is an amputation of the 4th toe. The black discoloration extends close to the proximal interphalangeal (PIP) joint on the big toe. Mostly the distal interphalangeal joint is involved. His right foot has black discoloration of the #3, 4, 5 toe, and the tip of the big toe. He also has some erythema, demarcation on the dorsal aspect of the foot. Mild tenderness. Posterior tibialis pulses. Could not be felt. Radial pulse very faint. There is a purplish discoloration of the index finger as well. IMPRESSION: 1. End-stage renal disease, on dialysis, tolerating well. 2. Hypertension with elevated blood pressure. 3. Severe peripheral vascular disease with gangrene 8/10 of the toes. At this point, Dr. Bahena does not feel that he needs to have an amputation done immediately. 4. Dilated cardiomyopathy, on Coreg and Entresto. This whole clinical presentation is very unusual for such a young ana lilia who is not diabetic to present with such peripheral vascular disease, including his upper extremities, as his radial pulses are very diminished as well. He has a history of chewing tobacco but not smoking it. No drug abuse. He was exercising normally up until early June. He never had claudication. Case was discussed with hospitalist and his primary care provider from the [facility] regarding a possible consultation at the [facility] whether inpatient or outpatient. Dr. Benedict will be calling the [facility] to have a second opinion. The patient is willing to go home first and will drive himself with his to the [facility] for a second opinion. I do not see any contraindication for that. I would discontinue IV Zosyn at this point. Toes are gangrenous but mostly dry gangrene and not actively infected. JOAQUIN
[2020-09-12] MEDS: FERROUS SULFATE 325MG TAB PO SCH (12:25)
[2020-09-12 14:00] VITALS: BP 149/98
--- NOTE | 2020-09-12 14:47 | IPN ---
NEPHROLOGY PROGRESS NOTE DATE: 09/11/2020 SUBJECTIVE: Patient seen and examined this morning at the bedside. He denies any complaints. He is due for dialysis tomorrow. He is due for possible skin or small or medium vessel biopsy next week. OBJECTIVE: VITAL SIGNS: Temperature 99.0, pulse 81, respiratory rate 18, blood pressure 155/97, saturating 98% on room air. INTAKE AND OUTPUT: Intake yesterday was 1,390. Weight in the bed scale today is not recorded. PHYSICAL EXAMINATION: GENERAL APPEARANCE: The patient is seen awake, alert, oriented, sitting up in no apparent distress. HEENT: The extraocular muscles are intact. Tongue is moist. NECK: Supple. There is a tunneled permacath in place. HEART: Regular, S1, S2, no murmur. LUNGS: Clear to auscultation bilaterally. No crackles or rales. ABDOMEN: Soft and nontender. EXTREMITIES: No edema. There is dry gangrene and black discoloration of the left foot toes. His feet have distal dressings. NEUROLOGICAL: Oriented x3, no focal deficit. PSYCHIATIC: Appropriate mood and affect. LABORATORY STUDIES: White count 11.4, hemoglobin 9.3, platelet count 257, sodium 140, potassium 3.9, bicarbonate 25, BUN 41, creatinine 9.3, calcium 8.9. CURRENT INPATIENT MEDICATIONS: The patient's medications were reviewed by myself. He was started on oral Ferrous Sulfate. The remainder of medications are unchanged as compared to prior. PROBLEMS: 1. End-stage renal disease on hemodialysis on Sunday, Sunday, Sunday schedule. 2. Dialysis will be on Sunday - his electrolytes and volume status are acceptable. His arterial venous access creation is on hold given his dry gangrene and vascular issues. His serologies have all been negative. For discussion on his prior kidney biopsy, please see yesterday's note. 3. Anemia related to end-stage renal disease he continues to Aranesp. Repeat iron stores are pending. He can be transfused for hemoglobin less than 8. His hemoglobin has improved. 4. Dilated cardiomyopathy he continues on beta kim and Entresto. Left ventricular ejection fraction of 25-30% on the most recent echo. Volume status is optimized with dialysis. 5. Bilateral toe gangrene status post angioplasty and followed by vascular surgery he is on Aspirin and statin and he is also followed by Dr. Briceno. Recommendations regarding Brannon noted. I agree with consideration of further biopsy to evaluate for polyarteritis nodosa which is an ANCA negative disease process and is impossible to diagnose based on serology. Primary Team is trying to set up a biopsy with Dermatology versus sending the patient for a higher level of care.
--- NOTE | 2020-09-12 16:59 | IPNPDOC ---
Text Note Date of Service The patient was seen on 09/12/20. NOTE Subjective: Patient is once again his same pleasant self. He does not have any complaints at this time, his only question is as to whether or not the rheumatological workup has shown anything yet, and it is still pending. I informed him that in dermatology is not available until next week, and we will discuss biopsy at that time. It appears that the fourth finger on his left hand is getting slightly more purple at this time, but the discoloration is still quite mild. Otherwise really no changes from yesterday, the remainder of his review of systems is negative. Objective: Constitutional: Awake and alert, in no apparent distress ENT: Sclera are clear. Mucosa is moist. Respiratory: Lungs CTA bilaterally. No respiratory distress. Cardiovascular: RRR S1 and S2 are normal, no murmur Gastrointestinal: Abdomen is soft, non distended, non tender, BS present. Musculoskeletal: No lower extremity edema. No joint deformities. Neurologic: No focal neurological deficit. Mental Status: A&O x3, normal affect Skin: He has gangrene of the toes which is well delineated with a black eschar. There is no erythema or purulent discharge. Clean dressing over both feet. Assessment/plan: Status has really not changed since yesterday. Nephrology is monitoring need for dialysis. Otherwise no significant change in the plan as outlined below. 35-year-old male history of ESRD on HD and worsening bilateral gangrenous toes admitted for progression of his condition without known underlying etiology. Admitted for further medical workup. Initially admitted for lightheadedness and nosebleed found to have a hemoglobin of 6.6 at time of admission which has recovered with blood transfusion. So far workup has been negative to identify the source of possible emboli to his feet. CASIE was done 09/08/2020 was also negative. Patient is currently undergoing rheumatological workup with Dr. Corral. If all her workup in the being negative patient may have to be transferred to a more specialized center such as [facility] for further workup. # Bilateral toe gangrene: s/p angioplasty of the right posterior tibial artery and medial plantar artery and right peroneal artery by vascular surgery. Unclear etiology. CASIE unrevealing for vegetation/thrombus. ID Dr Briceno consulted, continue Zosyn for now. Podiatry following no need for urgent amputation at this time doesn't appear actively infected Will eventually need amputation. Dr. Mcmanus vascular surgery consulted, will delay his AV graft formation for now. Rheumatology Dr. Valeria Corral consulted, recommended tests ordered, will fu with patient in clinic. Prior rheumatology workup has been negative so far. Consideration to this being polyarteritis nodosa has been brought up as a remote possibility, I spoke with the derm Physician Manager [employer] behavioral health professional yesterday to see if they would be willing to do a biopsy & she informed me that the PA's do not take inpatient call/consults, and the Attending will not be on until next . # PVD: Patient has been revascularized and followed by vascular surgery. Currently on anti-coagulation. # CHFrEF: Compensated. Has dilated cardiomyopathy on echo. On maintenance dialysis. Resume home medications. # ESRD: Receives hemodialysis 3 times a week nephrology is following and managin g his HD. # Anemia: Patient has recieved multiple units of PRBC while inpatient there is no obvious GI bleed. Was started on erythropoietin by nephrology. Monitor CBC, transfuse as needed. Disposition: Pending rheumatologic work up at this point. Perhaps skin biopsy for YA next week. Consideration may be made to transfer to larger facility, however this may be difficult without a diagnosis. We may need to do this as an outpatient. VS,Fishbone, I+O VS, Fishbone, I+O Laboratory Tests 09/12/20 06:07 Vital Signs Date Time Temp Pulse Resp B/P (MAP) Pulse Ox O2 Delivery O2 Flow Rate FiO2 09/12/20 15:31 16 09/12/20 14:00 97.2 87 149/98 (115) 98 Room Air I&O- Last 24 Hours up to 6 AM 09/12/20 06:00 Intake Total 1270 ml Output Total 0 ml Balance 1270 ml VIKY TAYLOR DO Sep 12, 2020 16:59
[2020-09-12] MEDS: PANTOPRAZOLE 20 MG TAB PO SCH (21:43)
[2020-09-12] MEDS: ATORVASTATIN 20 MG TAB PO SCH (21:43)
[2020-09-12 22:00] VITALS: BP 168/98
[2020-09-13 06:00] VITALS: BP 170/88
[2020-09-13] MEDS: FERROUS SULFATE 325MG TAB PO SCH (06:13)
[2020-09-13] MEDS: ENTRESTO 49-51MG TABLET (SACUBITRIL/VALSARTAN) PO SCH ×2 (06:13→20:27)
[2020-09-13] MEDS: ASPIRIN 81MG ENTERIC TABLET PO SCH (06:13)
[2020-09-13] MEDS: DOCUSATE SODIUM 100MG CAPSULE PO SCH (06:13)
[2020-09-13] MEDS: CARVedilol 12.5 MG TAB PO SCH ×2 (06:14→20:27)
[2020-09-13] MEDS: PERCOCET 5MG/325MG TAB PO PRN ×3 (06:15→20:28)
[2020-09-13 06:21] LABS: HEMATOCRIT 28.1 % (42.0-52.0); MEAN CORPUSCULAR HEMOGLOBIN 29.1 pg (27.0-33.0); MEAN CORPUSCULAR VOLUME 90.9 fl (80.0-96.0); PLATELET COUNT, AUTOMATED 264 10^3/uL (150-450); RED BLOOD COUNT 3.09 10^6/uL (4.30-6.10); WHITE BLOOD COUNT 13.1 10^3/uL (4.0-10.0)
[2020-09-13 06:54] LABS: CALCIUM LEVEL 9.5 MG/DL (8.5-10.1); CREATININE FOR GFR 10.9 MG/DL (0.70-1.30); GLOMERULAR FILTRATION RATE 5.7 (>60); PERCENT SATURATION 15.9 % (19.7-50.0); POTASSIUM SERUM 4.2 MEQ/L (3.5-5.1)
[2020-09-13] MEDS ORDERED: SODIUM CHLORIDE 0.9% 1000ML IV PRN (07:40)
[2020-09-13] MEDS: (RENVELA) SEVELAMER **CARBONate** 800 MG TAB PO SCH ×3 (08:00→17:58)
[2020-09-13] MEDS: IRON SUCROSE 100MG 5ML VIAL (J1756 PER 1MG) IV SCH (09:21)
[2020-09-13] MEDS: DARBEPOETIN 200MCG/0.4ML *DIALYSIS* SYRINGE (J0882 PER 1MCG) IV SCH (10:28)
[2020-09-13] MEDS: PIPERACILLIN/TAZOBACTAM SOD 4.5 GM in D5W MINI-BAG PLUS 50 ML IV SCH (13:50)
[2020-09-13 14:00] VITALS: BP 139/91
--- NOTE | 2020-09-13 20:25 | IPNPDOC ---
Text Note Date of Service The patient was seen on 09/13/20. NOTE Subjective: As usual he is in good spirits. He does not have any complaints at this time, and his review of systems is negative. Objective: Constitutional: Awake and alert, in no apparent distress ENT: Sclera are clear. Mucosa is moist. Respiratory: Lungs CTA bilaterally. No respiratory distress. Cardiovascular: RRR S1 and S2 are normal, no murmur Gastrointestinal: Abdomen is soft, non distended, non tender, BS present. Extremities: No lower extremity edema. No joint deformities. He does continue to have a mild purplish discoloration of the fourth finger of the left hand which does not seem to be getting any better or worse. He has gangrene of the toes which is well delineated with a black eschar. There is no erythema or purulent discharge. Clean dressing over both feet. Neurologic: No focal neurological deficit. Mental Status: A&O x3, normal affect Assessment/plan: 35-year-old male history of ESRD on HD and worsening bilateral gangrenous toes admitted for progression of his condition without known underlying etiology. Admitted for further medical workup. Initially admitted for lightheadedness and nosebleed found to have a hemoglobin of 6.6 at time of admission which has recovered with blood transfusion. So far workup has been negative to identify the source of possible emboli to his feet. CASIE was done 09/08/2020 was also negative. Patient is currently undergoing rheumatological workup with Dr. Corral. If all her workup in the being negative patient may have to be transferred to a more specialized center such as [facility] for further workup. # Bilateral toe gangrene: s/p angioplasty of the right posterior tibial artery and medial plantar artery and right peroneal artery by vascular surgery. Unclear etiology. CASIE unrevealing for vegetation/thrombus. ID Dr Briceno consulted, continue Zosyn for now. Podiatry following no need for urgent amputation at this time doesn't appear actively infected Will eventually need amputation. Dr. Mcmanus vascular surgery consulted, will delay his AV graft formation for now. Rheumatology Dr. Valeria Corral consulted, recommended tests ordered, will fu with patient in clinic. Prior rheumatology workup has been negative so far. Consideration to this being polyarteritis nodosa has been brought up as a remote possibility, I spoke with the [facility] Physician Senior Technical Support Engineer again today and they have accepted consult to evaluate the patient and perhaps perform biopsy for YA, they will come in tomorrow but I will place order today. # PVD: Patient has been revascularized and followed by vascular surgery. Joselito robin on anti-coagulation. # CHFrEF: Compensated. Has dilated cardiomyopathy on echo. On maintenance dialysis. Resume home medications. # ESRD: Receives hemodialysis 3 times a week nephrology is following and managing his HD. # Anemia: Patient has recieved multiple units of PRBC while inpatient there is no obvious GI bleed. Was started on erythropoietin by nephrology. Monitor CBC, transfuse as needed. Disposition: Rheumatologic work up still pending at this point. Perhaps skin biopsy for YA tomorrow, will defer to Derm regarding best site for biopsy to see appropriate sized vessel to determine YA. Otherwise, at that point I would think that it would be appropriate to d/c him and pursue further evaluation as an outpatient, recommend that his case be sent for evaluation/consideration by a larger facility such as [facility] or [facility]. The primary concern preventing discharge at this time are his gangrenous toes. He is still on IV antibiotics for prevention of spread of infection, surgery does not feel that amputation is necessary at this time. Pt has crutches in the room, will request PT eval at this time for recommendations regarding ability to take care of himself at home. VS,Shahzadbone, I+O VS, Fishbone, I+O Laboratory Tests 09/13/20 05:30 Vital Signs Date Time Temp Pulse Resp B/P (MAP) Pulse Ox O2 Delivery O2 Flow Rate FiO2 09/13/20 14:20 17 Room Air 09/13/20 14:00 98.8 88 139/91 (107) 99 I&O- Last 24 Hours up to 6 AM 09/13/20 06:00 Intake Total 2100 ml Output Total 0 ml Balance 2100 ml VIKY TAYLOR DO Sep 13, 2020 20:25
[2020-09-13] MEDS: PANTOPRAZOLE 20 MG TAB PO SCH (20:27)
[2020-09-13] MEDS: ATORVASTATIN 20 MG TAB PO SCH (20:27)
[2020-09-13 22:00] VITALS: BP 148/86
[2020-09-14 06:00] VITALS: BP 146/88
[2020-09-14] MEDS: DOCUSATE SODIUM 100MG CAPSULE PO SCH (08:13)
[2020-09-14] MEDS: FERROUS SULFATE 325MG TAB PO SCH (08:13)
[2020-09-14] MEDS: ENTRESTO 49-51MG TABLET (SACUBITRIL/VALSARTAN) PO SCH ×2 (08:13→21:31)
[2020-09-14] MEDS: (RENVELA) SEVELAMER **CARBONate** 800 MG TAB PO SCH ×3 (08:13→17:34)
[2020-09-14] MEDS: ASPIRIN 81MG ENTERIC TABLET PO SCH (08:13)
[2020-09-14] MEDS: CARVedilol 12.5 MG TAB PO SCH ×2 (08:16→21:31)
[2020-09-14] MEDS: PERCOCET 5MG/325MG TAB PO PRN ×4 (08:22→21:32)
--- NOTE | 2020-09-14 10:48 | IPN ---
PROGRESS NOTE DATE: 09/14/2020 SUBJECTIVE: Will has had a long hospitalization. Has vascular problems including bilateral toe gangrene status post angioplasty of right posterior tibial artery, medial plantar artery, right peroneal artery per Vascular Surgery. He is currently on Zosyn. He has a rheumatological workup that has been unremarkable. Consideration of polyarteritis nodosa and has a skin biopsy planned for today. He has peripheral arterial disease, currently anticoagulated. History of congestive heart failure with reduced ejection fraction, dilated cardiomyopathy on echocardiogram. Has endstage renal disease on dialysis three times per week, anemia related to chronic kidney disease. Denies chest pain, shortness of breath, fevers or chills. PHYSICAL EXAMINATION: VITAL SIGNS: Afebrile. Vitals are stable. GENERAL APPEARANCE: Alert, conversant, in no distress. LUNGS: Clear. HEART: Regular rate and rhythm. ABDOMEN: Soft, nontender, obese. EXTREMITIES: Trace peripheral edema. LABORATORY DATA: White count 13.1, hemoglobin 9, platelets 264,000, potassium 4.2, sodium 140, creatinine 5.7. I reviewed the rheumatologic workup, some of it is pending, what is back is negative. IMPRESSION: 1. Diffuse vascular disease leading to peripheral arterial disease as well as dilated cardiomyopathy and endstage renal disease. Skin biopsy is pending. Continue supportive measures. 2. Bilateral toe gangrene. Continue IV Zosyn, ID consult is still in place. Vascular Surgery is following as well. 3. Endstage renal disease being followed by Nephrology. 4. Anemia, being managed by Nephrology.
[2020-09-14] MEDS ORDERED: LIDOCAINE 1% MDV 20ML VIAL SC ONE (12:30)
[2020-09-14] MEDS ORDERED: LIDOCAINE 1% MDV 20ML VIAL As Ordered ONE (12:37)
[2020-09-14 14:00] VITALS: BP_SYST 143; BP_DIAS 1; BP_DIAS 91
--- NOTE | 2020-09-14 18:17 | CR.PDOC ---
General Date of Consultation: Sep 14, 2020 Referring Provider: VIKY TAYLOR DO Attending Physician: Galo Dinh MD Consultation HISTORY OF PRESENT ILLNESS: This is a 35 yo M with ESRD on hemodialysis, dilated cardiomyopathy with EF of 20-25%, HTN, gout and s/p amputation of 4th digit left foot (06/2020), who presented to the ED with a nosebleed x1 day that had stopped upon arrival to ED. On admission it was noted on examination that patient had ulceration of his third and fourth digit of his right foot along with skin discoloration on the anterior right forefoot. Patient states he noticed a black dot on the nail of his right 4th toe a few weeks prior that has quickly grown over the past 2 weeks and now includes 3rd and 2nd toe, this is similar to how it started with his left foot before amputation. He follows with podiatry and states it was not this bad when I last saw him 2 weeks ago. He has pain in the right foot, sensation intact. Patient was admitted for chronic anemia and to r/o infectious cause of ulceration of right toes. This morning patient notes discoloration of the tip of his left 4th finger that has been present for a few days, sensation and motor are intact. Patient was previously admitted in June 2020 for renal failure and found to have ESRD requiring hemodialysis, dilated cardiomyopathy with EF of 20-25% and gangrenous 4th toe of left foot that required amputation. Patient has been following with podiatry and wound care outpatient as left amputation site was not healing as well as it should have. PAST MEDICAL HISTORY: 1. ESRD on hemodialysis 2. Cardiomyopathy with EF of 20-25% 3. 4th toe Left foot amputation (06/2020) 4. HTN 5. Gout HOME MEDICATIONS: Please see below. ALLERGIES: Please see below PAST SURGICAL HISTORY: 1. Right Knee 2. 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 ETOH: reduced consumption 5 years ago from 30 beers once a weekend to holiday drinking only, Illicit drug use: none, occasional marijuana use in early 20s FAMILY HISTORY: Mother: breast cancer and diabetes; Uncle: Kidney transplant due to diabetes; Fathers history is unknown REVIEW OF SYSTEMS: Constitutional: Denies weight loss, fevers, chills, or night sweats Eyes: Endorses blurry peripheral vision after dialysis; Denies visual changes, double vision Ear nose throat: Denies runny nose, epistaxis, sore throat Cardiovascular: Denies chest pain, paroxysmal nocturnal dyspnea, orthopnea, edema, or palpitations. Respiratory: Denies cough, hemoptysis, or shortness of breath Gastrointestinal: Denies abdominal pain, difficulty swallowing, loss of appetite, nausea, vomiting, diarrhea, constipation, hematemesis, hematochezia Musculoskeletal: Denies joint swelling, decreased range of motion, crepitus, or new arthritis Integumentary: Endorses purpuritic rash on back of calves bilaterally x3 months Denies pruritus or new lesions Neuro: Denies any changes to sight/smell/hearing/taste, seizures, faint, headaches, paresthesias, anesthesias Endocrine: Denies increased appetite, tremor, dry skin, polydipsia, polyuria, polyphagia Lymphatic: Denies any new lumps or bumps anywhere PHYSICAL EXAMINATION: VITAL SIGNS: See below. GENERAL: [Pleasant sitting up in bed awake alert oriented speaking in complete sentences no acute distress] HEENT: [Moist mucous membranes no elevation in CVP] RESPIRATORY: [Normal breathing pattern] ABDOMINAL: [Soft, supple] EXTREMITIES: [+ for gangrene of toes of the left foot, dry gangrene in appearance and developing ulcers and signs of necrosis of toes of the right foot; vasculitis purple papules with ulcers bilateral lower legs; left fourth finger with dusky purple patch with other fingers with less severe presentation of same and right fourth finger with non-healing wound from several weeks ago) NEUROLOGICAL: [Spontaneously moves all 4 extremities, AOx4, interactive] PSYCHOLOGICAL: [Appropriate] LABORATORY DATA: See below. IMAGING: CT Angio with evidence of calcification of vessels in extremities, no evidence of large thromboembolic disease ASSESSMENT 1. Rash The considerations for this patient are mostly centered around vasculitis - leukocytoclastic vasculitis, IgA vasculitis, HSP (which carries a worse prognosis in adults and he has no GI complaints or joint complaints), a multi- inflammatory system response to prior Covid-19 (would have been asymptomatic case as patient had no issues the last 6 months to a year), other smaller to medium sized vessel vasculitis based on the labs to date and the clinical a ppearance with absence of eduardo inflammation of the kidneys on biopsy or larger vessels on CT angio. Other considerations would be thromboangiitis obliterans (though hard to explain the EF of 25 and the kidney failure and disease is more thromboembolic than calcification of vessels, patient does report a history of 20 years of using 3 tins a week of chewing tobacco), a perforating disorder (not favored at all). PEP indicated a polyclonal gammopathy and his sCr ~ 10 with proteinuria and blood in urine. ESR very high. Blood cultures negative to date. CASIE x 2 = no vegetation. -Will discuss case at [place] at [facility] on 09/16/20 in the AM -Follow up all labs suggested by Valeria Corral (rheum) including antithrombin III mutation and prothrombin gene mutation -Punch biopsy x2 for HE and DIF, see procedure below. Well tolerated, order signed for lidocaine 1% without epi from nursing and asked nurse to put in wound care instructions for biopsies as nursing order. Sutures to be removed in 14 days. [place] protocol was followed in compliance with [facility] standards. The patient was educated on the potential risks and benefits of the procedure and gave his/her informed consent. Area(s) treated with EtOH. Local anesthesia performed with <1mL of 1% lidocaine without epinephrine per site. Site(s) verified with patient via time out utilizing patient's name and date of . Biopsy/Biopsies performed. Dual site-specimen cup verification performed verbally between provider and clinic staff. Hemostasis achieved with hyfrecation or aluminum chloride. Photographs of biopsies scanned into the chart and documented in the physical exam. Closure: superficial interrupted 4-0 non-absorbable Ethilon sutures. Petrolatum and bandage applied. Wound care instruction addressed with patient by provider or clinic staff and wound care handout given. Patient tolerated the procedure well and left in stable condition. Pain reports that his/her pain was well-managed. There was no noted significant difference from baseline pain score after procedure. Patient was educated to use acetaminophen 500mg up to 4 times daily. If not sufficient, patient was educated to re-present to the dermatology clinic or, if after hours, the emergency department. Patient was informed they would be notified in 10-14 days by telephone for all malignant conditions and scheduled for definitive management. Thank you for this interesting consult. Missy Marin MD FAAD [phone] Vital Signs/I&O Vital Signs Date Time Temp Pulse Resp B/P (MAP) Pulse Ox O2 Delivery O2 Flow Rate FiO2 09/14/20 17:10 17 Room Air 09/14/20 14:00 98.8 87 143/91 (108) 97 I&O- Last 24 Hours up to 6 AM 09/14/20 06:00 Intake Total 1320 ml Output Total 1500 ml Balance -180 ml Allergies Coded Allergies: No Known Drug Allergies (Verified Allergy, Unknown, 08/27/20) Home Medications Scheduled Atorvastatin Calcium (Atorvastatin Calcium) 40 Mg Tablet, 20 MG PO QHS, (Reported) Calcitriol (Calcitriol) 0.25 Mcg Capsule, 0.25 MCG PO 3XW, (Reported) MON/SUN/FRI AT 0900 Carvedilol (Carvedilol) 25 Mg Tablet, 25 MG PO BID, (Reported) Docusate Sodium (Stool Softener) 100 Mg Capsule, 100 MG PO DAILY, (Reported) Pantoprazole Sodium (Pantoprazole Sodium) 20 Mg Tablet.dr, 20 MG PO QHS, (Reported) Sacubitril/Valsartan (Entresto 49 mg-51 mg Tablet) 1 Each Tablet, 1 TAB PO BID, (Reported) Sevelamer Carbonate (Renvela) 800 Mg Tablet, 800 MG PO WM, (Reported) MISSY MARIN MD Sep 14, 2020 18:17
[2020-09-14] MEDS: ATORVASTATIN 20 MG TAB PO SCH (21:31)
[2020-09-14] MEDS: PANTOPRAZOLE 20 MG TAB PO SCH (21:31)
[2020-09-14 22:00] VITALS: BP 172/103
[2020-09-15 00:20] VITALS: BP 148/94
[2020-09-15 06:00] VITALS: BP 160/92
[2020-09-15] MEDS: DOCUSATE SODIUM 100MG CAPSULE PO SCH (06:02)
[2020-09-15] MEDS: ASPIRIN 81MG ENTERIC TABLET PO SCH (06:02)
[2020-09-15] MEDS: ENTRESTO 49-51MG TABLET (SACUBITRIL/VALSARTAN) PO SCH ×2 (06:02→21:22)
[2020-09-15] MEDS: FERROUS SULFATE 325MG TAB PO SCH (06:03)
[2020-09-15] MEDS: CARVedilol 12.5 MG TAB PO SCH ×2 (06:07→21:25)
[2020-09-15 06:17] LABS: HEMATOCRIT 30.5 % (42.0-52.0); HEMOGLOBIN 9.7 g/dl (13.5-17.5); MEAN CORPUSCULAR HEMOGLOBIN 28.9 pg (27.0-33.0); MEAN CORPUSCULAR HGB CONC 31.8 g/dl (32.0-36.5); MEAN CORPUSCULAR VOLUME 90.8 fl (80.0-96.0); PLATELET COUNT, AUTOMATED 242 10^3/uL (150-450); RED BLOOD COUNT 3.36 10^6/uL (4.30-6.10); WHITE BLOOD COUNT 12.8 10^3/uL (4.0-10.0)
[2020-09-15 06:41] LABS: CALCIUM LEVEL 9.4 MG/DL (8.5-10.1); CREATININE FOR GFR 10.4 MG/DL (0.70-1.30); POTASSIUM SERUM 3.7 MEQ/L (3.5-5.1)
[2020-09-15] MEDS: (RENVELA) SEVELAMER **CARBONate** 800 MG TAB PO SCH ×3 (07:58→18:00)
[2020-09-15] MEDS ORDERED: SODIUM CHLORIDE 0.9% 1000ML IV PRN (08:25)
--- NOTE | 2020-09-15 09:19 | IPN ---
PROGRESS NOTE DATE: 09/15/2020 SUBJECTIVE: Will had his skin biopsy yesterday, it has been submitted to [facility] Dermatopathology and those results are obviously pending. No fever, chills or shortness of breath. OBJECTIVE: VITAL SIGNS: Blood pressure 160/92, afebrile. GENERAL APPEARANCE: Alert, conversant, in no distress. LUNGS: Clear. HEART: Regular rate and rhythm. ABDOMEN: Soft, nontender. No masses. SKIN: He has a pruritic rash on lower legs, particularly back of the legs that looks vasculitic. Has gangrene of the toes of the left foot. Developing ulcers and necrosis of the toes of the right foot. Left fourth finger has a dusky purple appearance. IMPRESSION: 1. 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 I communicated with Dr. Andrews about the case last night. He is going to present the case on [facility] at [facility] tomorrow morning. I appreciate his input. Awaiting for results of biopsy back which will take a while. 2. Bilateral toe gangrene, on IV Zosyn. Infectious Disease consult was in place, await for their input. Vascular Surgery is also following. 3. Endstage renal disease, on dialysis by Nephrology. 4. Anemia, being managed by Nephrology.
[2020-09-15] MEDS: IRON SUCROSE 100MG 5ML VIAL (J1756 PER 1MG) IV SCH (09:37)
[2020-09-15] MEDS: PERCOCET 5MG/325MG TAB PO PRN ×2 (13:32→21:30)
[2020-09-15 14:00] VITALS: BP 153/92
--- NOTE | 2020-09-15 16:03 | IPN ---
PROGRESS NOTE DATE: 09/15/2020 SUBJECTIVE: Will is seen and examined in the hemodialysis unit receiving his treatment. He denies any complaints. He had a biopsy done of the skin of both legs yesterday. His dialysis treatment is uneventful. OBJECTIVE: VITAL SIGNS: Temperature 99.8, pulse 92, respiratory rate 17, blood pressure 153/92, saturating 97% on room air. Dialysis today removed 1500 mL. GENERAL: The patient is seen in the hemodialysis unit receiving his treatment. Awake, alert, and oriented in no distress; young man, well-built. HEENT: Extraocular muscles are intact. Tongue is moist. NECK: Supple. There is no carotid bruit. Jugular veins are not elevated. There is a tunneled hemodialysis catheter presently in use. HEART: Sounds are regular S1, S2. No peripheral edema. LUNGS: Clear to auscultation bilaterally. No crackle or rale. ABDOMEN: Soft and nontender. There are bowel sounds. EXTREMITIES: Show dry gangrene of the toes and the left fourth finger has a dusky appearance at the fingertip. He has dressings over his posterior calves at the site of skin biopsy. LABORATORY DATA: Today's studies show white count 12.8, hemoglobin 9.7, platelets 242,000. Sodium 138, potassium 3.7, bicarbonate 26. INPATIENT MEDICATIONS: Reviewed by myself and no change as compared to yesterday. PROBLEMS: 1. End-stage renal disease on hemodialysis on a Sunday, Sunday, and Sunday schedule. The patient is tolerating treatments without any issue. His electrolytes and volume status are acceptable. He will need to follow-up outpatient with vascular surgery for arteriovenous access creation at some point after his other acute vascular issues have been dealt with and worked up. 2. Anemia of chronic renal failure along with iron deficiency and chronic inflammatory state. The patient continues on Aranesp and Venofer with his hemodialysis treatments, and his hemoglobin is improving. 3. Systolic congestive heart failure/dilated cardiomyopathy. Ejection fraction of 25% to 30% on the most recent echo. He continues on beta-kim and Entresto and volume status is optimized with dialysis. 4. Bilateral toe gangrene with suspected vasculitis. Serologic workup negative. Has been followed by vascular surgery along with infectious diseases. Is on aspirin and statin. Is off Zosyn now. Is status post skin biopsy. I will be interested to see the results of his skin biopsy.
[2020-09-15] MEDS: ATORVASTATIN 20 MG TAB PO SCH (21:22)
[2020-09-15] MEDS: PANTOPRAZOLE 20 MG TAB PO SCH (21:22)
[2020-09-15 22:00] VITALS: BP 114/82
[2020-09-16 06:00] VITALS: BP 141/91
[2020-09-16] MEDS: (RENVELA) SEVELAMER **CARBONate** 800 MG TAB PO SCH ×3 (08:54→17:37)
[2020-09-16] MEDS: ASPIRIN 81MG ENTERIC TABLET PO SCH (08:55)
[2020-09-16] MEDS: ENTRESTO 49-51MG TABLET (SACUBITRIL/VALSARTAN) PO SCH ×2 (08:55→20:21)
[2020-09-16] MEDS: FERROUS SULFATE 325MG TAB PO SCH (08:56)
[2020-09-16] MEDS: CARVedilol 12.5 MG TAB PO SCH ×2 (08:56→20:22)
[2020-09-16] MEDS: DOCUSATE SODIUM 100MG CAPSULE PO SCH (08:56)
[2020-09-16] MEDS: PERCOCET 5MG/325MG TAB PO PRN ×3 (08:58→21:55)
--- NOTE | 2020-09-16 10:24 | IPN ---
PROGRESS NOTE DATE: 09/16/2020 SUBJECTIVE: Will is seen [facility]. I am working towards his discharge plan. He is frustrated and wants to be able to get out of the hospital soon. He has had a prolonged hospitalization. Skin biopsy was done a few days ago. OBJECTIVE: VITAL SIGNS: Afebrile, blood pressure 142/88. GENERAL APPEARANCE: Alert, conversant, no distress. HEENT: No JVD. LUNGS: Clear. HEART: Regular rate and rhythm. ABDOMEN: Soft, nontender. EXTREMITIES: His feet are dressed. LABS: White count 12.8, hemoglobin 9.7, platelets 242. Sodium 138, potassium 3.7, creatinine 10.4. Iron studies on 09/13/2020 showed anemia of chronic inflammation. IMPRESSION AND PLAN: Diffuse vasculitic process. Waiting for results of skin biopsy. In the meantime I would like to work towards trying to get him discharged. I have a call out for Dr. Briceno to discuss this with her, and I spoke with Dr. Bahena from podiatry today, and he is going to take a look at the patient's feet and give us some guidance there as well. He already has a chair set up for dialysis so that is taken care of as well. I am not sure this can all come together before the weekend. It might be more reasonable to expect him to go home on Sunday but we will see how things progress with discharge plans.
--- NOTE | 2020-09-16 12:09 | IPN ---
PROGRESS NOTE DATE: 09/16/2020 Patient seen and examined. Denies new complaints and concerns. States his toes do not seem to be hurting. He has some pain in his arch and heel on the right foot, otherwise doing about the same. Vital signs are reviewed. He has remained afebrile. Labs are reviewed. White blood cell count is 12.8. Lower extremity examination: There are gangrenous changes essentially to all toes with eschar. There is no extension more proximally past the toes, which is encouraging, and there appears to be good granular tissue within the wound base from the previously amputated toe. ASSESSMENT: A 35-year-old male with gangrenous changes of presently undetermined cause. PLAN: For now, gangrene is dry, stable, and seems to be demarcating. Would hold amputation until necessary, either by infection or pain or ideally until etiology of his vascular injury is determined. There has been a biopsy taken this week, which is pending results. There has been discussion of transfer to a higher-level facility, such as [facility]. I agree with this. For now, patient should have continued the same wound care with Betadine dressings and gauze to keep sites clean.
[2020-09-16 14:00] VITALS: BP 117/80
--- NOTE | 2020-09-16 15:30 | IPNPDOC ---
Text Note Date of Service The patient was seen on 09/16/20. NOTE SUBJECTIVE: Patient was seen today. He denies any changes in his rash over the last 2 days and denies any new spots starting. Otherwise patient denies chest pain, shortness breath, nausea, vomiting, fevers, chills. Biopsies for HE and DIF performed two days ago on lower legs bilaterally. OBJECTIVE PHYSICAL EXAMINATION: VITAL SIGNS: Please see below. GENERAL: [Pleasant sitting up in bed awake alert oriented speaking in complete sentences no acute distress] HEENT: [Normocephalic atraumatic moist mucous membranes] ABDOMINAL: [Abdomen soft, supple] EXTREMITIES: [+ for gangrene of toes of the left foot, dry gangrene in appearanc e and developing ulcers and signs of necrosis of toes of the right foot; vasculitic purple papules with ulcers bilateral lower legs; left fourth finger with dusky purple patch with other fingers with less severe presentation of same and right fourth finger with non-healing wound from several weeks ago] NEUROLOGICAL: [Spontaneously moves all 4 extremities AOx4] PSYCHOLOGICAL: [Appropriate] LABORATORY DATA, MICROBIOLOGY: Please see below. ASSESSMENT AND PLAN: 1. Rash. The considerations for this patient are mostly centered around vasculitis - leukocytoclastic vasculitis, IgA vasculitis, HSP (which carries a worse prognosis in adults and he has no GI complaints or joint complaints), a multi- inflammatory system response to prior Covid-19 (would have been asymptomatic case as patient had no issues the last 6 months to a year), other smaller to medium sized vessel vasculitis based on the labs to date and the clinical appearance with absence of eduardo inflammation of the kidneys on biopsy or larger vessels on CT angio. Other considerations would be thromboangiitis obliterans (though hard to explain the EF of 25 and the kidney failure and disease is more thromboembolic than calcification of vessels, patient does report a history of 20 years of using 3 tins a week of chewing tobacco), a perforating disorder (not favored at all), infectious cause: mauricio spotted, chronic neisserial infection such as a disseminated gonorrhea, fungal (not favored as this has been going on for 3 months now but at least should be considered). PEP indicated a polyclonal gammopathy and his sCr ~ 10 with proteinuria and blood in urine. ESR very high. A1c 5.7 and 5.9. CASIE x 2 = no vegetation. Infectious work up to date: Wound cultures from left 4th toe (June 2020): + for Strep Group C, Enterobacter cloacae and Prevotella bivia; blood cultures remain negative to date. Skin biopsy sent to [facility], results still pending. Will follow up on these. Recommend consider ordering: Blood smear to evaluate for atypical appearing lineages, schistocytes, etc and Kaylie test to evaluate for cold agglutinin disease; ADA2 enzyme testing (likely send out) Will defer to ID for possible infectious workup for urine and throat for gonorrhea, mauricio spotted mountain fever and fungal workup with beta-glucan and alpha-gal plus crypto, cocci, histo, and blasto studies. Tissue culture from derm would be low utility I believe in this situation but if ID would like a tissue culture performed, I can take a 4 mm portion of tissue. Would defer to rheumatology/vascular surgery for treatment but could consider starting prednisone, Trental, aspirin as well as stents or other vascular surgery procedure if patient is a candidate as this could be a vasoocclusive process. Dermatology will continue following patient. Missy Marin MD FAAD [phone] VS,Silvia, I+O VSSilvia I+O Vital Signs Date Time Temp Pulse Resp B/P (MAP) Pulse Ox O2 Delivery O2 Flow Rate FiO2 09/16/20 08:58 18 09/16/20 08:56 86 142/88 09/16/20 06:00 97.5 97 Room Air I&O- Last 24 Hours up to 6 AM 09/16/20 06:00 Intake Total 380 ml Output Total 1500 ml Balance -1120 ml LITO SHUKLA OMS-4 Sep 16, 2020 09:53 MISSY MARIN MD Sep 17, 2020 10:46
[2020-09-16] MEDS: PANTOPRAZOLE 20 MG TAB PO SCH (20:21)
[2020-09-16] MEDS: ATORVASTATIN 20 MG TAB PO SCH (20:21)
[2020-09-16 22:00] VITALS: BP 137/89
[2020-09-17 05:47] LABS: HEMATOCRIT 29.6 % (42.0-52.0); HEMOGLOBIN 9.5 g/dl (13.5-17.5); MEAN CORPUSCULAR HEMOGLOBIN 28.9 pg (27.0-33.0); MEAN CORPUSCULAR HGB CONC 32.1 g/dl (32.0-36.5); PLATELET COUNT, AUTOMATED 237 10^3/uL (150-450); RED BLOOD COUNT 3.29 10^6/uL (4.30-6.10); WHITE BLOOD COUNT 10.6 10^3/uL (4.0-10.0)
[2020-09-17 06:00] VITALS: BP 140/88
[2020-09-17 06:12] LABS: ALBUMIN 2.5 GM/DL (3.2-5.2); CALCIUM LEVEL 9.7 MG/DL (8.5-10.1); CREATININE FOR GFR 10.4 MG/DL (0.70-1.30); POTASSIUM SERUM 4.3 MEQ/L (3.5-5.1)
[2020-09-17] MEDS: ENTRESTO 49-51MG TABLET (SACUBITRIL/VALSARTAN) PO SCH ×2 (06:13→20:07)
[2020-09-17] MEDS: ATORVASTATIN 20 MG TAB PO SCH (06:13)
[2020-09-17] MEDS: SENOKOT S TAB PO PRN (06:14)
[2020-09-17] MEDS: DOCUSATE SODIUM 100MG CAPSULE PO SCH (06:14)
[2020-09-17] MEDS: FERROUS SULFATE 325MG TAB PO SCH (06:14)
[2020-09-17] MEDS: ASPIRIN 81MG ENTERIC TABLET PO SCH (06:14)
[2020-09-17] MEDS: (RENVELA) SEVELAMER **CARBONate** 800 MG TAB PO SCH ×3 (06:14→17:25)
[2020-09-17] MEDS: CARVedilol 12.5 MG TAB PO SCH ×2 (06:16→20:08)
[2020-09-17] MEDS: IRON SUCROSE 100MG 5ML VIAL (J1756 PER 1MG) IV SCH (06:35)
[2020-09-17] MEDS: PENTOXIFYLLINE 400 MG TAB PO SCH ×3 (08:00→17:36)
[2020-09-17] MEDS ORDERED: SODIUM CHLORIDE 0.9% 1000ML IV PRN (08:25)
[2020-09-17] MEDS ORDERED: predniSONE 10 MG TAB PO SCH (09:00)
--- NOTE | 2020-09-17 09:06 | IPN ---
INPATIENT PROGRESS NOTE DATE: 09/16/2020 SUBJECTIVE: Will is seen and examined this morning at the bedside. He is anxious regarding discharge plans and discusses them with me at length. He strongly does not want to be discharged to go home and inquires about possibility of being transferred to a multidisciplinary higher level of care center. He was dialyzed yesterday with 1500 mL removed. His dialysis treatments remain uneventful and he is tolerating them without issue. PHYSICAL EXAMINATION: Temperature 97.5, pulse 72, respiratory rate 16, blood pressure 141/91, saturating 97% on room air. Dialysis yesterday removed 1.5 liters. Weight on the bed scale today is 93.6 kg. General: Patient is seen sitting up in bed, awake alert, anxious, in no distress. HEENT: Extraocular muscles are intact. Tongue is moist. Neck: Supple. There is a tunneled hemodialysis catheter with a clean dressing. Jugular veins are not elevated. Heart: Sounds are regular S1 and S2. There is no peripheral edema. Lungs: Clear to auscultation bilaterally, no crackle or rale. Abdomen: Soft and nontender, there are bowel sounds. Extremities: Dressings over his forefoot and he has dressings over his posterior calves at the site of skin biopsy. Psychiatric: Appropriate mood and affect. LABORATORY DATA: White count 12.8, hemoglobin 9.7, platelets 242. Sodium 138, potassium 3.7, bicarbonate 26. INPATIENT MEDICATIONS: Reviewed by myself and no change noted as compared to yesterday. PROBLEMS/PLAN: 1. End-stage renal disease: On hemodialysis on a Sunday, Sunday, Sunday schedule. The patient is set up for dialysis in the outpatient unit with a 5:00 p.m. chair time. He is well dialyzed. His electrolytes and volume status are all acceptable. 2. Dilated cardiomyopathy/systolic congestive heart failure: Left ventricular ejection fraction 25-30% on the most recent echocardiogram. Patient had a CASIE on this admission. He also has underlying diastolic congestive heart failure. His volume status is regulated via dialysis and well compensated. He is on Entresto along with aspirin, statin and a beta-kim. 3. Anemia related to iron deficiency and chronic renal failure: He continues on Venofer and Aranesp with his dialysis treatments and hemoglobin is improving. 4. 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 He does not want to be discharged home and inquires in regards to possibility of transfer to a multidisciplinary center.
--- NOTE | 2020-09-17 09:06 | IPN ---
PROGRESS NOTE DATE: 09/17/2020 SUBJECTIVE: Will is seen for dialysis. Earlier in the week he was eager for discharge and wanted me to make efforts towards that. Apparently, yesterday his called Rosi Rios, his primary care provider, who indicates that she is uncomfortable with his discharge and they would like him transferred to a tertiary care center such as [facility]. His skin biopsy results are still pending. Dermatology input has been appreciated. They are advising consideration of prednisone, pentoxifylline (Trental) and aspirin. I am also recommending revascularization consideration. The patient has already been seen by Vascular Surgery. Dr. Bahena saw the patient yesterday for podiatry. He thought that the gangrene was dry and stable and seemed to be demarcating. Would recommend same wound care with Betadine dressings and gauze sites clean. I also spoke to Dr. Briceno yesterday and awaiting her input as well. PHYSICAL EXAMINATION: VITAL SIGNS: Blood pressure is 140/88, pulse is 76, respiratory rate is 20. GENERAL APPEARANCE: Alert, conversant, in no distress. LUNGS: Clear. HEART: Regular rate and rhythm. ABDOMEN: Soft, nontender. SKIN: His wounds are dressed. LABORATORY DATA: White count is 10.6, hemoglobin 9.5, platelets 237,000, sodium 136, potassium is 4.3, creatinine 7.4. IMPRESSION: 1. Undetermined vasculitic process, awaiting results of skin biopsy. I had a discussion with the patient today and he initially wanted me to expedite his discharge but now he would like to be transferred to a higher level of care such as [place]. I will reach out to them today. I anticipate they are going to want the skin biopsy results in hand upon his transfer. He agrees with that, it sounds reasonable. We will start aspirin, some prednisone and Trental and order further lab work as recommended by Dermatology. 2. Endstage renal disease, dialysis per Nephrology. ADDENDUM: I reached out and spoke with Ashley Flood, Will . We discussed the case, the plan and answered all questions that she had. ADDENDUM ADDENDUM JOAQUIN
[2020-09-17 14:00] VITALS: BP 116/78
[2020-09-17] MEDS: PANTOPRAZOLE 20 MG TAB PO SCH (20:07)
[2020-09-17 22:00] VITALS: BP 134/83
[2020-09-17] MEDS: PERCOCET 5MG/325MG TAB PO PRN (22:19)
[2020-09-18 06:00] VITALS: BP 128/81
[2020-09-18 06:23] LABS: HEMATOCRIT 31.2 % (42.0-52.0); MEAN CORPUSCULAR HEMOGLOBIN 28.7 pg (27.0-33.0); MEAN CORPUSCULAR HGB CONC 32.1 g/dl (32.0-36.5); MEAN CORPUSCULAR VOLUME 89.7 fl (80.0-96.0); PLATELET COUNT, AUTOMATED 274 10^3/uL (150-450); RED BLOOD COUNT 3.48 10^6/uL (4.30-6.10); WHITE BLOOD COUNT 13.4 10^3/uL (4.0-10.0)
[2020-09-18 06:48] LABS: ALBUMIN 2.6 GM/DL (3.2-5.2); CALCIUM LEVEL 9.8 MG/DL (8.5-10.1); CREATININE FOR GFR 8.57 MG/DL (0.70-1.30); GLOMERULAR FILTRATION RATE 7.5 (>60); PHOSPHORUS LEVEL 6.6 MG/DL (2.5-4.9); POTASSIUM SERUM 3.5 MEQ/L (3.5-5.1)
--- NOTE | 2020-09-18 08:52 | IPN ---
PROGRESS NOTE DATE: 09/18/2020 SUBJECTIVE: Will had an uneventful 24 hours. No dialysis today. No results back on his skin biopsy. The plan is for transfer to a tertiary care center like [facility] once we get closer to having the biopsy back. OBJECTIVE: VITAL SIGNS: Afebrile. Vital signs stable. LUNGS: Clear. HEART: Regular rate and rhythm. ABDOMEN: Soft and nontender. EXTREMITIES: Feet are dressed. Purplish discoloration in the index finger of both hands. LABORATORY DATA: CBC with white count 13.4, hemoglobin 10, platelets 274,000. Sodium 137, potassium 3.5, creatinine 8.5. IMPRESSION: Suspected vasculitis. PLAN: Waiting for skin biopsy results. I have been communicating with Dr. Andrews from dermatology who recommends a higher dose steroid than initially ordered, so we will increase that today. Continue Trental and already on aspirin. Many lab tests are still outstanding.
[2020-09-18] MEDS: PENTOXIFYLLINE 400 MG TAB PO SCH ×3 (09:47→17:10)
[2020-09-18] MEDS: (RENVELA) SEVELAMER **CARBONate** 800 MG TAB PO SCH ×3 (09:47→17:10)
[2020-09-18] MEDS: ASPIRIN 81MG ENTERIC TABLET PO SCH (09:48)
[2020-09-18] MEDS: predniSONE 20 MG TAB PO SCH ×2 (09:48→21:41)
[2020-09-18] MEDS: FERROUS SULFATE 325MG TAB PO SCH (09:48)
[2020-09-18] MEDS: ENTRESTO 49-51MG TABLET (SACUBITRIL/VALSARTAN) PO SCH ×2 (09:48→21:41)
[2020-09-18] MEDS: PERCOCET 5MG/325MG TAB PO PRN ×3 (09:48→21:43)
[2020-09-18] MEDS: DOCUSATE SODIUM 100MG CAPSULE PO SCH (09:48)
[2020-09-18] MEDS: CARVedilol 12.5 MG TAB PO SCH ×2 (09:50→21:41)
[2020-09-18 14:00] VITALS: BP 125/79
[2020-09-18] MEDS: ATORVASTATIN 20 MG TAB PO SCH (21:41)
[2020-09-18] MEDS: SENOKOT S TAB PO PRN (21:42)
[2020-09-18] MEDS: PANTOPRAZOLE 20 MG TAB PO SCH (21:42)
[2020-09-18 22:00] VITALS: BP 154/90
[2020-09-19 06:00] VITALS: BP 149/56
[2020-09-19 06:05] LABS: HEMATOCRIT 32.5 % (42.0-52.0); HEMOGLOBIN 10.4 g/dl (13.5-17.5); MEAN CORPUSCULAR HEMOGLOBIN 28.6 pg (27.0-33.0); MEAN CORPUSCULAR VOLUME 89.3 fl (80.0-96.0); PLATELET COUNT, AUTOMATED 304 10^3/uL (150-450); RED BLOOD COUNT 3.64 10^6/uL (4.30-6.10); WHITE BLOOD COUNT 20.7 10^3/uL (4.0-10.0)
[2020-09-19 06:42] LABS: ALBUMIN 2.6 GM/DL (3.2-5.2); CALCIUM LEVEL 9.7 MG/DL (8.5-10.1); CREATININE FOR GFR 10.7 MG/DL (0.70-1.30); GLOMERULAR FILTRATION RATE 5.8 (>60); PHOSPHORUS LEVEL 5.9 MG/DL (2.5-4.9); POTASSIUM SERUM 4.4 MEQ/L (3.5-5.1)
[2020-09-19] MEDS: ASPIRIN 81MG ENTERIC TABLET PO SCH (08:50)
[2020-09-19] MEDS: ENTRESTO 49-51MG TABLET (SACUBITRIL/VALSARTAN) PO SCH ×2 (08:50→20:55)
[2020-09-19] MEDS: SENOKOT S TAB PO PRN (08:50)
[2020-09-19] MEDS: PERCOCET 5MG/325MG TAB PO PRN ×3 (08:51→18:02)
[2020-09-19] MEDS: predniSONE 20 MG TAB PO SCH ×2 (08:51→20:53)
[2020-09-19] MEDS: PENTOXIFYLLINE 400 MG TAB PO SCH ×3 (08:51→17:46)
[2020-09-19] MEDS: FERROUS SULFATE 325MG TAB PO SCH (08:51)
[2020-09-19] MEDS: DOCUSATE SODIUM 100MG CAPSULE PO SCH (08:51)
[2020-09-19] MEDS: (RENVELA) SEVELAMER **CARBONate** 800 MG TAB PO SCH ×3 (08:52→17:46)
[2020-09-19] MEDS: CARVedilol 12.5 MG TAB PO SCH ×2 (08:52→20:55)
[2020-09-19] MEDS ORDERED: GLUCOSE 4GM CHEW TABLET PO PRN (10:30)
[2020-09-19] MEDS ORDERED: GLUCAGON INJ 1MG VIAL SC PRN (10:30)
[2020-09-19] MEDS ORDERED: DEXTROSE 50% 50 ML SYRINGE IV PRN (10:30)
[2020-09-19] MEDS: HumaLOG INSULIN (NovoLOG) PER UNIT SC SCH ×3 (12:55→21:00)
--- NOTE | 2020-09-19 13:09 | IPN ---
NEPHROLOGY PROGRESS NOTE DATE: 09/19/2020 SUBJECTIVE: Mr. Flood is seen this morning at his bedside. He is in good spirits today and sitting on the edge of the bed. He denies any dyspnea, chest pain, fever or chills. OBJECTIVE: PHYSICAL EXAMINATION: VITAL SIGNS: Temperature 97.0 degrees Fahrenheit, heart rate 84 per minute and respiratory rate 18 per minute, blood pressure 138/94 mm of mercury and oxygen saturation 98% on room air. HEENT: His head is atraumatic. NECK: Supple and without JVD or thyroid enlargement. CHEST: Dialysis catheter is intact in the left upper chest. HEART: Regular. LUNGS: Clear to auscultation. ABDOMEN: Soft and nontender and bowel sounds are normal. EXTREMITIES: Without any cyanosis or clubbing. Toes of both feet are covered with dressings. He has mild purplish discoloration of his left ring finger. LABORATORY STUDIES: Today's labs show a white blood cell count of 20.7, hemoglobin 10.4 and hematocrit 32.5, platelet count 304. Sodium 137, potassium 4.4, CO2 25, BUN 77 and creatinine 10.7, phosphorous is down to 5.9 and albumin 2.6. PROBLEMS: 1. End-stage renal disease - The patient is regularly dialyzed on a Sunday, Sunday, and Sunday schedule. We will schedule his next dialysis for tomorrow. His electrolytes are stable, however BUN and creatinine are quite elevated. I am going to dialyze him for 4 hours tomorrow. 2. Hyperphosphatemia his phosphate binder was adjusted yesterday and phosphorous level has started to improve. It will improve further with dialysis and over the next couple of days. 3. Anemia the patient does have iron deficiency, however anemia is stable at present. He will continue to receive intravenous iron and Aranesp during dialysis. 4. Gangrenous toes and peripheral vascular disease - unfortunately no etiology is identified so far. All vasculitis workup has been negative so far and skin biopsy results are still pending. He remains on antibiotics for possible osteomyelitis. 5. Systolic and diastolic congestive heart failure with severe cardiomyopathy his volume status is very well compensated with dialysis. We will continue to monitor him closely.
[2020-09-19 14:00] VITALS: BP 142/83
[2020-09-19] MEDS: ATORVASTATIN 20 MG TAB PO SCH (20:53)
[2020-09-19] MEDS: PANTOPRAZOLE 20 MG TAB PO SCH (20:55)
[2020-09-19 22:00] VITALS: BP 135/97
[2020-09-20 06:00] VITALS: BP 155/86
[2020-09-20] MEDS: predniSONE 20 MG TAB PO SCH (06:01)
[2020-09-20] MEDS: ASPIRIN 81MG ENTERIC TABLET PO SCH (06:02)
[2020-09-20] MEDS: CARVedilol 12.5 MG TAB PO SCH ×2 (06:02→20:20)
[2020-09-20] MEDS: PENTOXIFYLLINE 400 MG TAB PO SCH ×3 (06:03→17:58)
[2020-09-20] MEDS: ENTRESTO 49-51MG TABLET (SACUBITRIL/VALSARTAN) PO SCH ×2 (06:03→20:20)
[2020-09-20] MEDS: DOCUSATE SODIUM 100MG CAPSULE PO SCH (06:03)
[2020-09-20] MEDS: FERROUS SULFATE 325MG TAB PO SCH (06:03)
[2020-09-20] MEDS: PERCOCET 5MG/325MG TAB PO PRN (06:03)
[2020-09-20] MEDS: HumaLOG INSULIN (NovoLOG) PER UNIT SC SCH ×4 (06:04→20:12)
[2020-09-20] MEDS: (RENVELA) SEVELAMER **CARBONate** 800 MG TAB PO SCH ×3 (06:06→17:58)
[2020-09-20 06:10] LABS: HEMATOCRIT 30.4 % (42.0-52.0); HEMOGLOBIN 9.8 g/dl (13.5-17.5); MEAN CORPUSCULAR HEMOGLOBIN 28.7 pg (27.0-33.0); MEAN CORPUSCULAR HGB CONC 32.2 g/dl (32.0-36.5); MEAN CORPUSCULAR VOLUME 89.1 fl (80.0-96.0); PLATELET COUNT, AUTOMATED 284 10^3/uL (150-450); RED BLOOD COUNT 3.41 10^6/uL (4.30-6.10); WHITE BLOOD COUNT 22.5 10^3/uL (4.0-10.0)
[2020-09-20 06:35] LABS: ALBUMIN 2.6 GM/DL (3.2-5.2); CALCIUM LEVEL 9.9 MG/DL (8.5-10.1); CREATININE FOR GFR 12.9 MG/DL (0.70-1.30); GLOMERULAR FILTRATION RATE 4.7 (>60); PHOSPHORUS LEVEL 7.3 MG/DL (2.5-4.9); POTASSIUM SERUM 4.8 MEQ/L (3.5-5.1)
--- NOTE | 2020-09-20 08:48 | IPN ---
NEPHROLOGY PROGRESS NOTE DATE: 09/17/2020 SUBJECTIVE: Will is seen and examined this morning in the hemodialysis unit completing up his maintenance treatment. He denies any complaints. His dialysis has been uneventful. We removed 2 liters today. Weight in the bed scale today is 94 kg. OBJECTIVE: GENERAL: Patient is seen awake, alert, oriented, comfortable, in no apparent distress. HEAD: Extraocular muscles are intact. Tongue is moist. NECK: Supple. There is a tunneled hemodialysis catheter which is presently in use. HEART SOUNDS: Regular S1, S2. There is no peripheral edema. LUNGS: Clear to auscultation bilaterally. No crackle, rale or rhonchus. ABDOMEN: Soft and nontender. There are bowel sounds. EXTREMITIES: Dressings on his feet with dry gangrene of his toes and no edema. The fourth digit of the left hand has dusky fingertip. NEUROLOGIC: He is oriented time three, at baseline mentation. SKIN: Shows dressings on the posterior calves at the site of his recent skin biopsy. LABORATORY DATA: White count 10.6, hemoglobin 9.5, platelets 237. Sodium 136, potassium 4.3, bicarbonate 27. INPATIENT MEDICATIONS: I know patient was started on prednisone 10 mg by mouth daily and pentoxifyline 400 mg by mouth with meals. His remainder of medications are all unchanged. PROBLEMS: 1. End-stage renal disease on hemodialysis on a Sunday, Sunday, Sunday schedule. Patient is well-dialyzed. Electrolytes and volume status are acceptable. He will follow up for arteriovenous access creation outpatient. He has outpatient hemodialysis chair time already arranged for 5:00 p.m. on Mondays, Wednesdays and Fridays. 2. Dilated cardiomyopathy/systolic congestive heart failure. Left ventricular ejection fraction 25% on most recent echocardiogram. Patient had transesophageal echocardiogram on this admission while his gangrene was being worked up. He also has underlying diastolic congestive heart failure. Volume status is regulated by dialysis and well-compensated. He is on Entresto along with aspirin, statin and beta kim. 3. Anemia related to iron deficiency and chronic renal failure. He continues on Venofer and Aranesp with his dialysis treatments and hemoglobin is improving. Goal hemoglobin is 10-11. 4. 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 Pending results of skin biopsy. He has been evaluated by vascular surgery, podiatry, infectious disease, cardiology and has also been evaluated by rheumatology. Primary team is trying to facilitate a transfer to a multidisciplinary center pending results of skin biopsy.
--- NOTE | 2020-09-20 09:18 | IPN ---
PROGRESS NOTE DATE: 09/19/2020 SUBJECTIVE: Will is seen in [facility]. There is really no change in status. Pathology report is still pending. I did increase his steroid dose yesterday. White count is up as a consequence of this. He is not having any systemic side effects, mood swings, et cetera, from this higher dose steroid as of yet. He remains afebrile. PHYSICAL EXAMINATION: VITAL SIGNS: Stable. Exam is unchanged from yesterday. LABORATORY DATA: White count 20.7, hemoglobin 10.4, platelets 304. Sodium 137, potassium 4.4. Blood sugar 189. Rheumatology workup is still pending. Tick borne pathogen PCR is pending. IMPRESSION: 1. Hyperglycemia. He has developed a little hyperglycemia related to the steroid. I will start a sliding scale insulin with coverage in the meantime. The rest of his medical problems are stable on his current regimen.
[2020-09-20] MEDS: DARBEPOETIN 200MCG/0.4ML *DIALYSIS* SYRINGE (J0882 PER 1MCG) IV SCH (10:18)
--- NOTE | 2020-09-20 10:52 | IPN ---
PROGRESS NOTE DATE: 09/20/2020 SUBJECTIVE: Will is seen briefly today. He is just initiating his dialysis. He was seen by Infectious Disease (that note was dictated into an outpatient encounter created for 09/17, but the dictation applies to this inpatient hospitalization), it was reviewed. We are still waiting on the pathology report to come back from his skin biopsy. We will be calling [facility] today to try to initiate transfer. OBJECTIVE: VITAL SIGNS: Stable. Exam was deferred as he was starting dialysis. LABORATORY DATA: White count is 22,000 (started on prednisone two days ago), hemoglobin is 9.8, platelets are 284,000, sodium is 136, potassium is 4.8, blood sugar is 155. Blood sugars have been around 100 to 150. I started fingerstick monitoring with the prednisone. IMPRESSION: 1. Suspected vasculitis. Today, he is getting his dialysis as scheduled. Start his steroids, Trental and continued aspirin a few days ago, his blood sugar is not significantly increased on the steroids so I suspect that will occur. Will be reaching out to [facility] today to work on transfer although I suspect they are going to want the pathology report back prior to making this transfer.
[2020-09-20] MEDS: IRON SUCROSE 100MG 5ML VIAL (J1756 PER 1MG) IV SCH (10:58)
--- NOTE | 2020-09-20 12:25 | IPN ---
PROGRESS NOTE DATE: 09/20/2020 I made contact with [facility] today ([phone]). Spoke with Dr. Murrell. We discussed the case at length. Explored diagnostic possibilities. They anticipate accepting the patient in transfer, but want to wait until the skin biopsy report is back from [place]. Dr. Murrell is asking the attending physician contact [facility]'s transfer center once that pathology report has returned and they will make final arrangements to accept the patient in transfer. I have called the floor and asked them to collect all radiographic and lab data, as well as the pathology report from the kidney biopsy of 07/06/2020, so that everything is available upon his transfer from this and his June hospitalization.
--- NOTE | 2020-09-20 12:32 | IPN ---
PROGRESS NOTE DATE: 09/20/2020 SUBJECTIVE: Mr. Flood is seen this morning during dialysis. He is feeling well and denies any new complaints. He has gangrenous changes in the toes of both feet and also has slight discoloration of his left ring finger. He denies any dyspnea, chest pain, nausea, vomiting, fever, or chills. OBJECTIVE: VITAL SIGNS: Temperature 98.2 degrees Fahrenheit, heart rate 62 per minute, and respiratory rate 18 per minute. Blood pressure 155/86 mmHg and oxygen saturation 95% on room air. HEAD: Atraumatic. NECK: Supple and without JVD or thyroid enlargement. Hemodialysis catheter is intact without any signs of infection or bleeding. HEART: Sounds are regular. LUNGS: Clear to auscultation bilaterally. ABDOMEN: Soft and nontender. Bowel sounds are normal. EXTREMITIES: Without any cyanosis or clubbing. Toes of both feet are covered with dressing. NEUROLOGIC: He is awake, alert, and oriented x3. LABORATORY DATA: Today's labs show WBC count 22.5, hemoglobin 9.8, and hematocrit 30.4, platelets 284,000. Sodium 136, potassium 4.8, CO2 of 25, BUN 99, and creatinine 12.9. Glucose 155 and calcium 9.9. Phosphorus is up to 7.3 and albumin 2.6. PROBLEMS: 1. End-stage renal disease. Patient is being dialyzed today and he is tolerating dialysis well. We will dialyze him for four hours today. 2. Congestive heart failure. His volume status is very well compensated. He is known to have severe cardiomyopathy with ejection fraction in the range of 20% to 25% and in addition, he also has diastolic dysfunction. We are removing only 1 liter of fluid today. Clinically, he seems very well compensated. 3. Anemia. At present, his anemia is stable and we will continue with weekly dose of Aranesp and iron. 4. Possible vasculitis. He is now on prednisone 40 mg b.i.d. Vasculitis workup has been negative. Skin biopsy results are still pending.
[2020-09-20 14:00] VITALS: BP_SYST 141; BP_SYST 146; BP_DIAS 73; BP_DIAS 89
--- NOTE | 2020-09-20 18:43 | IPN ---
PROGRESS NOTE DATE: 09/20/2020 SUBJECTIVE: Telephone called from Dr. Andrews, verbal report on the skin biopsy did not show vasculitis. It is perforating disorder probably secondary to his endstage renal disease. 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 Sometimes seen with uncontrolled hypertension (patient did present with this 07/04). Diabetes (patient is not a diabetic, normal hemoglobin A1c confirmed on repeat testing) and possibly COVID (patient has a negative COVID PCR, there is no option to order a COVID antibody in the [facility] menu). With the vasculitis being ruled out, I stopped his steroid. I also called Dr. Mcmanus. We discussed these results as well.
[2020-09-20] MEDS: PANTOPRAZOLE 20 MG TAB PO SCH (20:20)
[2020-09-20] MEDS: ATORVASTATIN 20 MG TAB PO SCH (20:20)
[2020-09-20 22:00] VITALS: BP 166/94
[2020-09-21 05:52] LABS: HEMATOCRIT 29.4 % (42.0-52.0); HEMOGLOBIN 9.3 g/dl (13.5-17.5); MEAN CORPUSCULAR HEMOGLOBIN 28.4 pg (27.0-33.0); MEAN CORPUSCULAR HGB CONC 31.6 g/dl (32.0-36.5); MEAN CORPUSCULAR VOLUME 89.6 fl (80.0-96.0); PLATELET COUNT, AUTOMATED 260 10^3/uL (150-450); RED BLOOD COUNT 3.28 10^6/uL (4.30-6.10)
[2020-09-21 06:00] VITALS: BP 136/90
[2020-09-21 06:26] LABS: ALBUMIN 2.4 GM/DL (3.2-5.2); CREATININE FOR GFR 8.2 MG/DL (0.70-1.30); GLOMERULAR FILTRATION RATE 7.9 (>60); POTASSIUM SERUM 3.4 MEQ/L (3.5-5.1)
[2020-09-21] MEDS: ASPIRIN 81MG ENTERIC TABLET PO SCH (08:12)
[2020-09-21] MEDS: ENTRESTO 49-51MG TABLET (SACUBITRIL/VALSARTAN) PO SCH ×2 (08:12→20:11)
[2020-09-21] MEDS: PENTOXIFYLLINE 400 MG TAB PO SCH ×3 (08:12→18:09)
[2020-09-21] MEDS: FERROUS SULFATE 325MG TAB PO SCH (08:12)
[2020-09-21] MEDS: CARVedilol 12.5 MG TAB PO SCH ×2 (08:14→20:11)
[2020-09-21] MEDS: (RENVELA) SEVELAMER **CARBONate** 800 MG TAB PO SCH ×3 (08:14→18:09)
[2020-09-21] MEDS: DOCUSATE SODIUM 100MG CAPSULE PO SCH (08:14)
[2020-09-21] MEDS: HumaLOG INSULIN (NovoLOG) PER UNIT SC SCH ×4 (08:15→20:07)
[2020-09-21] MEDS: PERCOCET 5MG/325MG TAB PO PRN (08:16)
[2020-09-21] MEDS ORDERED: ARAN200I3 IV (12:30)
[2020-09-21] MEDS ORDERED: RENV2TAB PO (12:30)
[2020-09-21] MEDS ORDERED: FERR325T18 PO (12:30)
[2020-09-21] MEDS ORDERED: MOM30SS2 PO (12:30)
[2020-09-21] MEDS ORDERED: SENN-52 PO (12:30)
[2020-09-21] MEDS ORDERED: ASPI81TA26 PO (12:30)
[2020-09-21] MEDS ORDERED: ACET1TAB55 PO (12:30)
[2020-09-21] MEDS ORDERED: VENO20IN7 IV (12:30)
[2020-09-21] MEDS ORDERED: INSUHUMDS SC ×2 (12:30)
[2020-09-21] MEDS ORDERED: PERCOCET PO (12:30)
[2020-09-21] MEDS ORDERED: PENT400T47 PO (12:30)
--- NOTE | 2020-09-21 13:35 | IPN ---
PROGRESS NOTE DATE: 09/21/2020 SUBJECTIVE: Mr. Flood is seen this morning at his bedside. He is feeling well and denies any new complaints. He was dialyzed yesterday and he tolerated dialysis very well. The patient denies any dyspnea, chest pain, nausea or vomiting. OBJECTIVE: VITAL SIGNS: Temperature 98.8 degrees Fahrenheit, heart rate 72 per minute, and respiratory rate 16 per minute. Blood pressure 145/98 mmHg and oxygen saturation 98% on room air. HEAD: Atraumatic. NECK: Supple and without JVD or thyroid enlargement. Hemodialysis catheter on left upper chest is intact. HEART: Sounds are regular with systolic murmur grade 1/6. LUNGS: Clear to auscultation bilaterally. ABDOMEN: Soft and nontender. Bowel sounds are normal. EXTREMITIES: Without any cyanosis or clubbing. Both hands have slight dusky appearance of fingertips. Both feet have frankly gangrenous toes and his toes are covered with dressing. NEUROLOGIC: He is awake, alert, and oriented x3. LABORATORY DATA: Today's labs show WBC count 15.0, hemoglobin 9.3, and hematocrit 29.4, platelets 260. Sodium 141, potassium 3.4, CO2 26, BUN 62, and creatinine 8.2. Glucose 184 and calcium 9.0. Phosphorus 6.20. PROBLEMS: 1. End-stage renal disease. Patient has been dialysis dependent. His kidney biopsy was consistent with advanced renal disease and kidney function is not likely to improve. At this point he will continue with maintenance hemodialysis three times a week and will be dialyzed again tomorrow. 2. Hypokalemia. This is mild and related to dialysis. No intervention is needed and it is likely to improve as patient has been eating normal. 3. Hyperphosphatemia. I have increased his phosphate binder and phosphorus is likely to improve over the next few days. 4. Anemia. At present his anemia is stable and does not need any intervention. He has been receiving Aranesp and iron in dialysis which will be continued. 5. Peripheral vascular disease and ischemic toes and fingers. We are quite concerned about severity of his disease in this young age. Apparently the skin biopsy was reported negative for vasculitis. His vasculitis workup has been negative so far and we are asking for possible transfer to tertiary care center for further evaluation as the patient has significant potential risk for disability at this young age due to loss of his limbs. I discussed with the Hospitalist at length about his prognosis and have recommended to consider transfer to tertiary care center for further evaluation.
[2020-09-21 14:00] VITALS: BP 142/92
--- NOTE | 2020-09-21 17:42 | IPNPDOC ---
Date Seen The patient was seen on 09/21/20. Progress Note Patient seen and examined. We had a long talk today about the results of his pathology. His Covid antibody test is still pending. The patient's main question is what his overall prognosis will be. At this point, I think that is still unclear. Unfortunately, he has such extensive tissue loss already, and what's done is done in that respect. I'm not sure if there can be any improvement or recovery that would allow partial salvage of his feet and also -hopefully- complete salvage of his hands, but I am hopeful he will find additional answers at the [facility] once he is transferred. We have done distal tibial angioplasty in both lower extremities, extremely challenging due to the dense calcification and microvascular occlusions. Unfortunately, his most distal upper and lower extremity vascular disease is not amenable to revascularization. Additionally, I'm hoping at [facility] they may be able to offer him a longer term solution for dialysis access then a PermCath. At this point, I do not feel comfortable placing any AV dialysis access in the upper extremities due to the heavy calcified plaque in the distal radial/ulnar arteries and microcirculation of the hands that is resulting in ischemic changes in the digits, and has begun to mimic the ischemic changes he has in his feet. He is 35 years old, and a PermCath is unfortunately not a long-term solution. Perhaps if his overall condition improves, he would be a candidate for a kidney transplant, and this should certainly be a top priority if possible. We will continue to follow while he is here. We appreciate the opportunity to participate in the care of this patient. VS, I&O, 24H, Fishbone Vital Signs/I&O Vital Signs Date Time Temp Pulse Resp B/P (MAP) Pulse Ox O2 Delivery O2 Flow Rate FiO2 09/21/20 14:00 99.1 79 16 142/92 (109) 100 Room Air I&O- Last 24 Hours up to 6 AM 09/21/20 06:00 Intake Total 600 ml Output Total 1000 ml Balance -400 ml Laboratory Data 24H LABS Laboratory Tests 2 09/20/20 19:59: Bedside Glucose (Misc Panel) 188H 09/21/20 05:24: Nucleated Red Blood Cells % (auto) 0.0, Anion Gap 11, Glomerular Filtration Rate 7.9L, Calcium Level 9.0, Phosphorus Level 6.0H, Albumin 2.4L 09/21/20 11:32: Bedside Glucose (Misc Panel) 193H 09/21/20 16:45: Bedside Glucose (Misc Panel) 149H CBC/BMP Laboratory Tests 09/21/20 05:24 KAROLINA JOSE MD Sep 21, 2020 17:42
--- NOTE | 2020-09-21 18:31 | DS.PDOC ---
Discharge Summary General Date of Admission Sep 01, 2020 at 10:33 Date of Discharge Sep 21, 2020 Attending Physician: MICHELL MIDDLETON DO Specialist/Consultants [facility], Dr. Andrews Vascular Surgery, Dr. Mcmanus Nephrology, Dr. Howe ID, Dr. Briceno Podiatry, Dr. Bahena Discharge Summary PROCEDURES PERFORMED DURING STAY: CASIE on 09/08/2020 and biopsy on 09/15/2020 ADMITTING DIAGNOSES: 1. Acute on chronic anemia 2. Right 3rd and 4th digit ulceration 3. Non-healing left 4th toe wound (s/p amputation on 07/07/2020) 4. PAD 5. ESRD on dialysis MWF 6. Secondary hyperparathyroidism 7. Hypertension 8. Compensated HFrEF 9. Gout 10. GERD DISCHARGE DIAGNOSES: 1. Acute on chronic anemia 2. 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 Severe PAD 4. ESRD on dialysis MWF 5. Secondary hyperparathyroidism 6. Hypertension 7. Compensated HFrEF (EF 20-25%) 8. Gout 9. GERD COMPLICATIONS/CHIEF COMPLAINT: Anemia. HISTORY OF PRESENT ILLNESS: Mr. Flood is a 35 year old male with ESRD on dialysis, hypertension, and lower extremity PAD s/p amputation of the left 4th toe in 06/2020 who initially presents to the ED for nosebleed since 12 AM and found to be acute anemic with Hgb 6.6. Epistaxis started right after blowing his nose. He has never had problems with epistaxis in the past. He has associated lightheadedness, dizziness, and blurry vision. Denies chest pain, dyspnea, fever/chills, melena, hematuria, or hemoptysis. Otherwise, while in the ED, it was noted that he had ulceration of the third and fourth digits of his right foot and discoloration of the skin. He was being followed by vascular surgery, Dr. Mcmanus and podiatry, Dr. Bahena, outpatient. Dr. Bahena, Dr. Mcmanus, and nephrology, Dr. Howe on admission. Patient has a dialysis catheter, but was scheduled to have vascular surgery to place fistula. HOSPITAL COURSE: Of note, I have inherited the patient today and it is the first time I am seeing the patient. Notes have been gathered and summarized to the best of my abilities. During patient's hospitalization, he was given 6u of pRBC in total. Nephrology has managed his anemia of chronic disease with IV Venofer and darbepoetin cheko during dialysis. Podiatry evaluated the patient for the gangrenous changes of the toes. They observed distal gangrenous changes of all toes. Initially was concerned of infection and was started on empiric antibiotics. ID was consulted and followed along. Antibiotics were continued until 09/12/2020 as the toes did not appear to have active infection. Otherwise, podiatry discussed the case with vascular surgery. Since gangrene was not actively infected and there would be poor wound healing with severe PAD, held off on amputation at this time. Vascular surgery evaluated patient. Vascular surgery were looking for embolic causes for the gangrene of the feet bilaterally. CASIE was performed by Cardiology and did not find a source. Otherwise, vascular surgery was concerned for steal syndrome with AV fistula because the radial and ulnar arteries were heavily calcified. Recommended continuing with the PermCath at this time. Of note, vascular surgery commented that the is heavy calcification in the tibia and pedal vessels when evaluating the vascular of the legs. Vascular surgery is considering complement medicated coagulopathy and severe thrombosis in COVID 19 patients. Patient did test negative for COVID 19, but he may have had COVID in the past. Pending COVID antibody tests. Dermatology was consulted for biopsy of skin in concern of vasculitis causing HFrEF, ESRD on dialysis, and bilateral feet gangrene. Biopsy returned today which demonstrated microvascular deposits of C5B-9. This may be suggestive of complement regulatory protein gene abnormality, antiphospholipid antibody syndrome, dialysis, or diabetes. We do not have the capabilities to further evaluate for the complement medicated vasculopathy. Requested transfer for higher level of care and evaluation by vascular surgery (consideration for AV fistula) and rheumatology (complement medicated vasculopathy). Spoke with Dr. Magdaleno of [facility] who was covering for Dr. Murrell. Dr. Magdaleno accepted patient. Patient will be transferred today. Today when I saw the patient, he was feeling about the same. Denies chest pain or dyspnea. His fingers have started to look dusky and the 4th left finger tip h as started turning light blue. Otherwise, patient is stable and will be transferred to [facility] today. DISCHARGE MEDICATIONS: Please see below. ALLERGIES: Please see below. PHYSICAL EXAMINATION ON DISCHARGE: VITAL SIGNS: Please see below. GENERAL: Comfortable, in no apparent distress HEENT: Head normocephalic, atraumatic, EOMI, sclera clear NECK: Supple CARDIOVASCULAR EXAMINATION: Regular rate and rhythm RESPIRATORY EXAMINATION: Clear to auscultation bilaterally ABDOMINAL EXAMINATION: Soft, non-tender, normal bowel sounds EXTREMITIES: Toes bandaged. Finger tips looks dusky bilaterally. Left 4th fingertip is turning light blue NEUROLOGICAL EXAMINATION: CN 3-12 grossly intact PSYCHIATRIC EXAMINATION: Normal mood and affect LABORATORY DATA: Please see below. IMAGING: Per radiologist interpretation or transporter radiology interpretation MRI foot Soft tissue edema involving the foot in the subcutaneous tissues and in the intrinsic muscles of the foot, with fluid signal tracking along the distal myotendinous junction of the flexor digitorum brevis. This suggests the possibility of an infectious or inflammatory tenosynovitis. No underlying evidence of osteomyelitis or septic arthropathy CT angiography abdominal arteries There is a surprising amount of diffuse arterial calcification. No large vessel occlusion, irregular thrombus, or aneurysm is seen. I suspect there are dorsalis pedis artery short segment occlusions bilaterally. Both renal arteries duplicated and the smaller accessory renal arteries to each renal lower pole appears stenotic at their origin. The inferior mesenteric artery appears stenotic at its origin. CT angio chest No significant atherosclerotic plaquing seen in the aorta. No CT evidence of left atrial or left ventricular thrombus. No CT evidence of pulmonary embolus. No active disease CASIE 1. Left ventricular systolic dysfunction with global hypokinesis and estimated LVEF approximately 25-30%. 2. No hemodynamically significant valvular disease. 3. No visualized vegetations. 4. Left atrial appendage free of thrombi. 5. Normal flow in both right-sided and left-sided pulmonary veins. 6. Intact atrial septum on 2D, color Doppler and after injection agitated saline. 7. Mild atherosclerosis of thoracic aorta. 8. No obvious source of cardioembolic event. PROGNOSIS: Gaurded ACTIVITY: As tolerated. DIET: Carbohydrate consistent diet DISCHARGE PLAN: Transfer to [facility] DISPOSITION: [facility]. DISCHARGE INSTRUCTIONS: 1. On discharge from [facility], follow up with PCP within a week 2. On discharge from [facility], follow up with Vascular surgery within a week 3. On discharge from [facility], follow up with Nephrology within a week ITEMS TO FOLLOWUP ON ON OUTPATIENT: 1. COVID antibody tests 2. Anti-cardiolipin IgG Ab and Scl-70scleroderma Ab DISCHARGE CONDITION: Stable. Total time spent on discharge planning, discharge summary, and medication reconciliation: 90 minutes. Vital Signs/I&Os Vital Signs Date Time Temp Pulse Resp B/P (MAP) Pulse Ox O2 Delivery O2 Flow Rate FiO2 09/21/20 14:00 99.1 79 16 142/92 (109) 100 Room Air I&O- Last 24 Hours up to 6 AM 09/21/20 06:00 Intake Total 600 ml Output Total 1000 ml Balance -400 ml Laboratory Data Labs 24H Laboratory Tests 2 09/20/20 19:59: Bedside Glucose (Misc Panel) 188H 09/21/20 05:24: Nucleated Red Blood Cells % (auto) 0.0, Anion Gap 11, Glomerular Filtration Rate 7.9L, Calcium Level 9.0, Phosphorus Level 6.0H, Albumin 2.4L 09/21/20 11:32: Bedside Glucose (Misc Panel) 193H 09/21/20 16:45: Bedside Glucose (Misc Panel) 149H CBC/BMP Laboratory Tests 09/21/20 05:24 FSBS Laboratory Tests Test 09/20/20 19:59 09/21/20 11:32 09/21/20 16:45 Range/Units Bedside Glucose (Misc Panel) 188 193 149 70-105 MG/DL Discharge Medications Scheduled Aspirin (Aspirin EC) 81 Mg Tablet.dr, 81 MG PO QAM Atorvastatin Calcium (Atorvastatin Calcium) 40 Mg Tablet, 20 MG PO QHS, (Reported) Carvedilol (Carvedilol) 25 Mg Tablet, 25 MG PO BID, (Reported) Darbepoetin Cheko in Polysorbat (Aranesp) 200 Mcg/0.4 Ml Syringe, 200 MCG IV HD Docusate Sodium (Stool Softener) 100 Mg Capsule, 100 MG PO DAILY, (Reported) Ferrous Sulfate (Ferrous Sulfate) 325 Mg Tablet, 325 MG PO DAILY Insulin Human Lispro (Humalog) 100 Unit/1 Ml Vial, 0 UNITS SC AC Insulin Human Lispro (Humalog) 100 Unit/1 Ml Vial, 0 UNITS SC QHS Iron Sucrose Complex (Venofer) 100 Mg/5 Ml Vial, 100 MG IV HD Pantoprazole Sodium (Pantoprazole Sodium) 20 Mg Tablet.dr, 20 MG PO QHS, (Reported) Pentoxifylline (Pentoxifylline) 400 Mg Tablet.er, 400 MG PO WM Sacubitril/Valsartan (Entresto 49 mg-51 mg Tablet) 1 Each Tablet, 1 TAB PO BID, (Reported) Sevelamer Carbonate (Renvela) 800 Mg Tablet, 1,600 MG PO WM Scheduled PRN Acetaminophen (Acetaminophen) 325 Mg Tablet, 650 MG PO Q6HP PRN for PAIN / FEVER Magnesium Hydroxide (Milk of Magnesia) 400 Mg/5 Ml Oral.susp, 30 ML PO DAILYPRN PRN for CONSTIPATION Oxycodone/Acetaminophen (Oxycodone-Acetaminophen 5-325) 1 Each Tablet, 1 TAB PO Q4HP PRN for MODERATE PAIN (PS 5-7) Oxycodone/Acetaminophen (Oxycodone-Acetaminophen 5-325) 1 Each Tablet, 2 TAB PO Q4HP PRN for SEVERE PAIN (PS 8-10) Sennosides/Docusate Sodium (Senna Plus Tablet) 1 Each Tablet, 1 TAB PO DAILYPRN PRN for CONSTIPATION Allergies Coded Allergies: No Known Drug Allergies (Verified Allergy, Unknown, 08/27/20) MICHELL MIDDLETON DO Sep 21, 2020 18:31
--- NOTE | 2020-09-21 20:06 | IPNPDOC ---
Subjective Date Seen The patient was seen on 09/21/20. Subjective Chief Complaint/HPI Mr. Flood is a 35 year old male with prolonged hospitalization found to have bilateral gangrenous toes which have started to spread to his hands bilaterally. This morning, he denies any chest pain or dyspnea. His finger tips are dusky and the 4th left finger is turning light blue. Pathology report returned today which suggested complement mediated vasculopathy. Spoke with [facility]. Dr. Magdaleno of [facility] accepted the patient. Planning to transfer today, but unable to find transport. Will discuss with mattress spring encaser/PFS tomorrow. Objective Physical Examination General Exam: Positive: Alert, Cooperative Eye Exam: Positive: EOMI; Negative: Sclera icteric ENT Exam: Positive: Atraumatic Chest Exam: Positive: Clear to auscultation Heart Exam: Positive: Rate Normal, Regular Rhythm Extremity Exam: Positive: Cyanosis Neuro Exam: Positive: Normal Speech Psych Exam: Positive: Mental status NL, Mood NL Assessment /Plan Assessment Mr. Flood is a 35 year old male with prolonged hospitalization found to have bilateral gangrenous toes which have started to spread to his hands bilaterally. Plan for patient to be transferred to [facility] for further evaluation. 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 Severe PAD -Heavy calcification -Unable to place AV fistula at this time -Transfer to [facility], possibly to find other assisted options other than PermCath -Continue aspirin and atorvastatin -Continue Pentoxifylline 4. ESRD on dialysis MWF -Follows with nephrology -Continue Sevelamer 5. HFrEF -Not in exacerbation -Regularly receives dialysis -EF 25% to 30% -Continue Entresto, Coreg, aspirin, and atorvastatin 6. Anemia of chronic disease -Receives IV Venofer and darbepoetin cheko at dialysis 7. Diabetes mellitus -Continue sliding scale insulin 8. DVT ppx -TEDs Disposition: pending transfer to [facility]. Will need to discuss transportation with upper caser/PFS tomorrow VS, I&O, 24H, Silvia Vital Signs/I&O Vital Signs Date Time Temp Pulse Resp B/P (MAP) Pulse Ox O2 Delivery O2 Flow Rate FiO2 09/21/20 14:00 99.1 79 16 142/92 (109) 100 Room Air I&O- Last 24 Hours up to 6 AM 09/21/20 06:00 Intake Total 600 ml Output Total 1000 ml Balance -400 ml Laboratory Data 24H LABS Laboratory Tests 2 09/20/20 19:59: Bedside Glucose (Misc Panel) 188H 09/21/20 05:24: Nucleated Red Blood Cells % (auto) 0.0, Anion Gap 11, Glomerular Filtration Rate 7.9L, Calcium Level 9.0, Phosphorus Level 6.0H, Albumin 2.4L 09/21/20 11:32: Bedside Glucose (Misc Panel) 193H 09/21/20 16:45: Bedside Glucose (Misc Panel) 149H CBC/BMP Laboratory Tests 09/21/20 05:24 Microbiology Microbiology 09/21/20 Acid Fast Stain, Received Pending 09/21/20 Mycobacterial Culture, Received Pending 09/21/20 Fungal Smear, Received Pending 09/21/20 Fungal Culture, Received Pending 09/21/20 Gram Stain, Received Pending 09/21/20 Surgical Biopsy Culture, Received Pending MICHELL MIDDLETON DO Sep 21, 2020 20:06
[2020-09-21] MEDS: PANTOPRAZOLE 20 MG TAB PO SCH (20:11)
[2020-09-21] MEDS: ATORVASTATIN 20 MG TAB PO SCH (20:11)
[2020-09-21 22:00] VITALS: BP 148/93
[2020-09-22 06:00] VITALS: BP 166/92
[2020-09-22 06:08] LABS: SARS-CoV-2 ANTIBODY IgM Negative (Negative)
[2020-09-22 06:21] LABS: HEMATOCRIT 28.1 % (42.0-52.0); HEMOGLOBIN 9.1 g/dl (13.5-17.5); MEAN CORPUSCULAR HEMOGLOBIN 28.6 pg (27.0-33.0); MEAN CORPUSCULAR HGB CONC 32.4 g/dl (32.0-36.5); MEAN CORPUSCULAR VOLUME 88.4 fl (80.0-96.0); PLATELET COUNT, AUTOMATED 232 10^3/uL (150-450); RED BLOOD COUNT 3.18 10^6/uL (4.30-6.10); WHITE BLOOD COUNT 12.4 10^3/uL (4.0-10.0)
[2020-09-22 06:52] LABS: ALBUMIN 2.4 GM/DL (3.2-5.2); CALCIUM LEVEL 8.9 MG/DL (8.5-10.1); CREATININE FOR GFR 10.1 MG/DL (0.70-1.30); GLOMERULAR FILTRATION RATE 6.2 (>60); PHOSPHORUS LEVEL 5.7 MG/DL (2.5-4.9); POTASSIUM SERUM 3.6 MEQ/L (3.5-5.1)
--- NOTE | 2020-09-22 07:26 | IPNPDOC ---
Text Note Date of Service The patient was seen on 09/21/20. NOTE SUBJECTIVE: Patient was seen 09/21/2020. He denies any changes in his rash over the last 2 days and denies any new spots starting. Otherwise patient denies chest pain, shortness breath, nausea, vomiting, fevers, chills. He is awaiting transfer to the [facility]. Biopsy sites on legs doing well, no pain or discomfort per patient. OBJECTIVE PHYSICAL EXAMINATION: VITAL SIGNS: Please see below. GENERAL: [Pleasant sitting up in bed awake alert oriented speaking in complete sentences no acute distress] HEENT: [Normocephalic atraumatic moist mucous membranes] ABDOMINAL: [Abdomen soft, supple] EXTREMITIES: [+ for gangrene of toes of the left foot, dry gangrene in appearance and developing ulcers and signs of necrosis of toes of the right foot; vasculitic purple papules with ulcers bilateral lower legs; left fourth finger with dusky purple patch with other fingers with less severe presentation of same and right fourth finger with non-healing wound from several weeks ago - more progressed than last visit with patient; biopsy sites on legs C/D/I] NEUROLOGICAL: [Spontaneously moves all 4 extremities AOx4] PSYCHOLOGICAL: [Appropriate] LABORATORY DATA, MICROBIOLOGY: Please see below. ASSESSMENT AND PLAN: 1. Rash. The biopsy for HE and DIF returned 09/20/2020. Dr. Ponce at [facility] who has extensive background in reading vasculopathy specimens saw evidence of a perforating disorder (which can be seen in dialysis/ESRD patients) along with vasculopathy. Notably she did not see vasculitis, thus we discontinued the prednisone on 09/20/2020 while continuing Trental and aspirin. 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 This can be seen in a variety of settings - diabetes, hypertension, anti-phospholipid syndromes, certain drug abuse states, and post COVID-19/multisystem inflammatory syndrome. This morning I saw that his COVID-19 IgM and IgG are negative so he has not had infection with COVID-19. His A1c is not diabetic range. He denies illicit drug usage, admitting to only occasional marijuana years ago, binge drinking 30 + a weekend but it has been five years, and three tins per week of chewing tobacco for 20 years until June 2020. The considerations for this patient are mostly centered around vasculopathic conditions at this point including thromboangiitis obliterans. This would be a dramatic and unusual presentation of LAURA which usually is an acral extremity condition with symptoms of PVD (pain with movement, etc) at the beginning, nonetheless, he does fit the age range and gender most affected and does have an extensive history of chewing tobacco usage, which can be a cause (along with the more common culprit cigarettes) for LAURA. Some consider LAURA an autoimmune reaction triggered by tobacco usage that leads to vasculopathy. There are cases of intestinal vessels being involved in LAURA along with vessels in the nervous system leading to neurologic symptoms. His extent of vessel damage to the heart and kidneys is incredibly dramatic should this be a case of LAURA. All tobacco pr oduct cessation strongly encouraged, he has not used since Jun 2020 when this started. A couple labs are still pending at this point for autoimmune conditions and anti-phospholipid syndrome. After the above labs return, I would consider LAURA strongly if nothing else fits. Vascular surgery has evaluated the patient and determined his extensive degree of vascular damage and calcification of vessels with recommendations in place for a transfer to [facility] for additional care. From a medical treatment perspective there are other medications that can be used in addition to aspirin and Trental - prostaglandin derivatives, anti-inflammatories, vasodilators - to treat LAURA but the extent of damage done to his vessels, kidneys, and heart I'm not sure can be undone at this point in time (sclerosis on kidney biopsy, EF to 25%). Patient is aware. Another medication that has been used for complement- mediated derangement is eculizumab, but I would defer to CC on whether this medication would have any utility at this point given much of the damage appears to be done already and I'm not sure it would be able to reverse the scar damage. It also requires REMS enrollment and ensuring patient has encapsulated organism vaccines several weeks prior to starting the medication. For thoroughness, I did complete a tissue culture today of the left lower leg for bacteria, atypical mycobacteria, and fungus. See procedure note below. May be prudent to round out infectious causes, currently ehrlichiosis lab is pending but could expand to RMSF, gonorrhea (throat swab and NAATs urine), Lyme, alpha gal, beta glucan, blasto, crypto, coccidiomycosis, and histoplasmosis amongst others but will defer to ID as Dr. Briceno is following. Infectious work up to date: Wound cultures from left 4th toe (June 2020): + for Strep Group C, Enterobacter cloacae and Prevotella bivia; blood cultures remain negative to date and COVID-19 PCR and IgG/IgM negative/non-reactive. I do not favor an infectious cause to the patient's presentation as I believe the clinical picture does not fit and the patient would have succumbed to many of these infectious processes by now. Additional recommendations to consider: Blood smear to evaluate for atypical appearing lineages, schistocytes, etc and Kaylie test to evaluate for cold agglutinin disease; ADA2 enzyme testing (likely send out). Dermatology will continue following patient. Missy Marin MD FAAD [phone] Procedure note: Lucas protocol was followed in compliance with [facility] standards. The patient was educated on the potential risks and benefits of the procedure and gave his/her informed consent. Area(s) treated with EtOH. Local anesthesia performed with <1mL of 1% lidocaine without epinephrine per site. Site(s) verified with patient via time out utilizing patient's name and date of . Biopsy/Biopsies performed. Dual site-specimen cup verification performed verbally between provider and clinic staff. Hemostasis achieved with pressure. Closure: superficial interrupted 4-0 non-absorbable Ethilon sutures. Petrolatum and bandage applied. Wound care instruction addressed with patient by provider or clinic staff and wound care handout given. Patient tolerated the procedure well and left in stable condition. Pain reports that his/her pain was well-managed. There was no noted significant difference from baseline pain score after procedure. Patient was educated to use acetaminophen 500mg up to 4 times daily. If not sufficient, patient was educated to re-present to the dermatology clinic or, if after hours, the emergency department. Patient was informed they would be notified in 10-14 days by telephone for all malignant conditions and scheduled for definitive management. VS,Fishbone, I+O VS, Fishbone, I+O Laboratory Tests 09/22/20 05:25 Vital Signs Date Time Temp Pulse Resp B/P (MAP) Pulse Ox O2 Delivery O2 Flow Rate FiO2 09/22/20 06:00 98.8 77 18 166/92 (116) 98 Room Air I&O- Last 24 Hours up to 6 AM0 09/22/20 06:00 Intake Total 1440 ml Balance 1440 ml MISSY MARIN MD Sep 22, 2020 07:26
[2020-09-22] MEDS: HumaLOG INSULIN (NovoLOG) PER UNIT SC SCH ×3 (07:30→17:11)
[2020-09-22] MEDS: (RENVELA) SEVELAMER **CARBONate** 800 MG TAB PO SCH ×2 (07:43→13:04)
[2020-09-22] MEDS: ASPIRIN 81MG ENTERIC TABLET PO SCH (07:47)
[2020-09-22] MEDS: ENTRESTO 49-51MG TABLET (SACUBITRIL/VALSARTAN) PO SCH (07:47)
[2020-09-22 07:48] VITALS: BP 160/90
[2020-09-22] MEDS: DOCUSATE SODIUM 100MG CAPSULE PO SCH (07:48)
[2020-09-22] MEDS: CARVedilol 12.5 MG TAB PO SCH (07:48)
[2020-09-22] MEDS: FERROUS SULFATE 325MG TAB PO SCH (07:48)
[2020-09-22] MEDS: PENTOXIFYLLINE 400 MG TAB PO SCH ×2 (07:48→13:04)
[2020-09-22] MEDS: IRON SUCROSE 100MG 5ML VIAL (J1756 PER 1MG) IV SCH (09:25)
--- NOTE | 2020-09-22 10:02 | IPNPDOC ---
Subjective Date Seen The patient was seen on 09/22/20. Subjective Chief Complaint/HPI Mr. Flood was seen this morning in dialysis. Denies chest pain or dyspnea. His finger tips are dusky. Left 4th finger tip is turning blue and left 5th finger is peeling. 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 He has rapidly loss all of his toes on both of his feet in the past few months, and will start losing his fingers if this process continues. We have exhausted our ability to evaluate and assess his vasculopathy which has already damaged his heart, kidney, and feet and now endangering his hand, and will need to be transferred to higher level of care. In addition, vascular surgery has seen the patient. Patient has severe peripheral vascular disease and heavy calcification due to his vasculopathy. Our vascular surgeon cannot place an AV fistula for ESRD, but patient will need a long wall mining machine helper solution for dialysis. We will need vascular surgery at [facility] to look for another option for long wall mining machine helper dialysis access in the setting of severe PAD. Vascular surgery also agrees with need to transfer to higher level of care. Update: Transportation has been arranged. Patient will be leaving at 1830 this evening. Discharge summary has been updated Objective Physical Examination General Exam: Positive: Alert, Cooperative Eye Exam: Positive: EOMI; Negative: Sclera icteric ENT Exam: Positive: Atraumatic Chest Exam: Positive: Clear to auscultation Heart Exam: Positive: Rate Normal, Regular Rhythm Extremity Exam: Positive: Cyanosis Neuro Exam: Positive: Normal Speech Psych Exam: Positive: Mental status NL, Mood NL Assessment /Plan Assessment Mr. Flood is a 35 year old male with prolonged hospitalization found to have bilateral gangrenous toes which have started to spread to his hands bilaterally. Plan for patient to be transferred to [facility] for further evaluation and for the preservation of his fingers and hands. 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 Without good blood flow, there would not be good wound healing -Opted to wait on amputation at this time, but will need to be addressed at another time 3. Severe PAD -Heavy calcification -Unable to place AV fistula at this time -Transfer to [facility], possibly to find other usp options other than PermCath -Continue aspirin and atorvastatin -Continue Pentoxifylline 4. ESRD on dialysis MWF -Follows with nephrology -Continue Sevelamer 5. HFrEF -Not in exacerbation -Regularly receives dialysis -EF 25% to 30% -Continue Entresto, Coreg, aspirin, and atorvastatin 6. Anemia of chronic disease -Receives IV Venofer and darbepoetin cheko at dialysis 7. Diabetes mellitus -Continue sliding scale insulin 8. DVT ppx -TEDs Update: Transportation has been arranged. Patient will be leaving at 1830 this evening. Discharge summary has been updated VS, I&O, 24H, Fishbone Vital Signs/I&O Vital Signs Date Time Temp Pulse Resp B/P (MAP) Pulse Ox O2 Delivery O2 Flow Rate FiO2 09/22/20 07:48 80 160/90 09/22/20 06:00 98.8 18 98 Room Air I&O- Last 24 Hours up to 6 AM 09/22/20 06:00 Intake Total 1440 ml Balance 1440 ml Laboratory Data 24H LABS Laboratory Tests 2 09/21/20 11:32: Bedside Glucose (Misc Panel) 193H 09/21/20 16:45: Bedside Glucose (Misc Panel) 149H 09/21/20 19:50: Bedside Glucose (Misc Panel) 168H 09/22/20 05:25: Nucleated Red Blood Cells % (auto) 0.0, Anion Gap 11, Glomerular Filtration Rate 6.2L, Calcium Level 8.9, Phosphorus Level 5.7H, Albumin 2.4L CBC/BMP Laboratory Tests 09/22/20 05:25 Microbiology Microbiology 09/21/20 Acid Fast Stain, Received Pending 09/21/20 Mycobacterial Culture, Received Pending 09/21/20 Fungal Smear, Received Pending 09/21/20 Fungal Culture, Received Pending 09/21/20 Gram Stain - Final, Resulted 09/21/20 Surgical Biopsy Culture, Resulted Pending MICHELL MIDDLETON DO Sep 22, 2020 10:02
--- NOTE | 2020-09-22 12:54 | IPN ---
NEPHROLOGY PROGRESS NOTE DATE: 09/22/2020 SUBJECTIVE: Mr. Flood is seen this morning during hemodialysis. He is feeling well and denies any new complaints. He is waiting for possible transfer to [facility] for further evaluation. He denies any fever, chills, nausea, vomiting, dyspnea or chest pain. PHYSICAL EXAMINATION: Temperature 98.8 degrees Fahrenheit, heart rate 80 per minute, respiratory rate 18 per minute, blood pressure 160/90 mmHg, oxygen saturation 98%. HEAD: Atraumatic. NECK: Supple and without jugular venous distention (JVD) or thyroid enlargement. Dialysis catheter on left upper chest is intact. HEART SOUNDS: Regular. There is no pericardial friction rub. LUNGS: Clear to auscultation bilaterally. ABDOMEN: Soft and nontender. Bowel sounds are normal. EXTREMITIES: Without any cyanosis or clubbing. Bilateral forefeet are in dressings due to gangrenous toes. NEUROLOGIC: He is awake, alert and oriented times three. LABORATORY STUDIES: Today's labs show sodium 140, potassium 3.6, BUN 89, creatinine 10.10, calcium 8.9, phosphorus 5.7. Hemoglobin 9.1, hematocrit 28.1, WBC 12.4 PROBLEMS: 1. End-stage renal disease. Patient is currently on dialysis and he is tolerating dialysis treatment very well. We are dialyzing him for four hours. 2. Hypokalemia. He had mild hypokalemia yesterday due to dialysis. We are using 4.0 mEq potassium bath today to prevent further hypokalemia. 3. Hyperphosphatemia. Phosphorus level is improving since his phosphorus binder dose was adjusted a couple of days ago. It is likely to come down to normal range after dialysis today. 4. Anemia. No change and anemia has been stable. He will continue to receive Aranesp and Venofer with dialysis. 5. Peripheral vascular disease. Etiology remains uncertain. There is a plan for possible transfer to [facility] for further evaluation. All workup has been negative so far here.
[2020-09-22 14:00] VITALS: BP 136/79
== END 2020-09-22 18:50 | disposition short-term general hospital (02) | DRG 181 ==
LOC: M ED 07:59 → M ED INP 08:00 → M MSPAV 10:40 → OBSVTOIN 09-01 10:33
PROVIDERS: ADMIT Internal Medicine; ATTEND Internal Medicine
PROC: 047T3Z1 Dilation of Right Peroneal Artery using Drug-Coated Balloon, Percutaneous Approach (ICD-10-PCS; principal; 2020-09-01)
PROC: 047R3Z1 Dilation of Right Posterior Tibial Artery using Drug-Coated Balloon, Percutaneous Approach (ICD-10-PCS; 2020-09-01)
PROC: 047M3ZZ Dilation of Right Popliteal Artery, Percutaneous Approach (ICD-10-PCS; 2020-09-01)
PROC: 047P3ZZ Dilation of Right Anterior Tibial Artery, Percutaneous Approach (ICD-10-PCS; 2020-09-01)
PROC: 047V3ZZ Dilation of Right Foot Artery, Percutaneous Approach (ICD-10-PCS; 2020-09-01)
PROC: 30233N1 Transfusion of Nonautologous Red Blood Cells into Peripheral Vein, Percutaneous Approach (ICD-10-PCS; 2020-09-01)
PROC: B41F1ZZ Fluoroscopy of Right Lower Extremity Arteries using Low Osmolar Contrast (ICD-10-PCS; 2020-09-01)
PROC: B246ZZ4 Ultrasonography of Right and Left Heart, Transesophageal (ICD-10-PCS; 2020-09-08)
PROC: 0HBLXZX Excision of Left Lower Leg Skin, External Approach, Diagnostic (ICD-10-PCS; 2020-09-14)
PROC: 0HBKXZX Excision of Right Lower Leg Skin, External Approach, Diagnostic (ICD-10-PCS; 2020-09-14)
DX: M31.8 Other specified necrotizing vasculopathies (principal); I13.2 Hypertensive heart and chronic kidney disease with heart failure and with stage 5 chronic kidney disease, or end stage renal disease; D84.1 Defects in the complement system; N18.6 End stage renal disease; I70.261 Atherosclerosis of native arteries of extremities with gangrene, right leg; D62 Acute posthemorrhagic anemia; E11.65 Type 2 diabetes mellitus with hyperglycemia; I50.22 Chronic systolic (congestive) heart failure; N25.81 Secondary hyperparathyroidism of renal origin; E87.1 Hypo-osmolality and hyponatremia; E83.39 Other disorders of phosphorus metabolism; D63.1 Anemia in chronic kidney disease; R04.0 Epistaxis; M65.9 Synovitis and tenosynovitis, unspecified; K21.9 Gastro-esophageal reflux disease without esophagitis; M10.9 Gout, unspecified; Z89.422 Acquired absence of other left toe(s); Z79.899 Other long term (current) drug therapy; Z79.82 Long term (current) use of aspirin; E78.5 Hyperlipidemia, unspecified; E66.9 Obesity, unspecified; Z68.30 Body mass index [BMI] 30.0-30.9, adult; Z87.891 Personal history of nicotine dependence; E87.6 Hypokalemia

== ENCOUNTER → 2020-09-14 | Outpatient (REF) | payer BC ==
[~2020-09-14] MED LIST changes: +ACET1TAB55 PO; +ARAN200I3 IV; +ASPI81TA26 PO; +ATOR40TA75 PO; +FERR325T18 PO; +INSUHUMDS SC; +MM S100C PO; +MOM30SS2 PO; +PENT400T47 PO; +PERCOCET PO; +SENN-52 PO; +VENO20IN7 IV
--- NOTE | 2020-09-17 09:35 | IPN ---
INFECTIOUS DISEASE PROGRESS NOTE DATE: 09/16/2020 SUBJECTIVE: Mr. Flood was seen today. He is in good spirits. He is still waiting for the results of the biopsy. I discussed the case with Dr. Andrews and he discussed his differential diagnosis, although he thinks it is mostly a thrombo-occlusive disease and not necessarily vasculitis in the differential, discussed question of Dysart spotted fever. The patient has not had any tick bites this summer. He did not even go much outdoor hunting because he was too busy with work. He has had no fever, chills, headaches. No other symptoms to suggest other systemic illness or infectious process. He has had discoloration of the tip of his fingers especially the fourth index finger. PHYSICAL EXAMINATION: HEART: Normal S1, S2 with no murmurs. ABDOMEN: Soft, nontender. EXTREMITIES: Gangrene of the left foot; status post amputation of the fourth toe and the right foot had gangrene of the third, fourth and fifth toes. There are some papules on lower extremities. Left fourth finger is dusky in color and slightly tender to touch. He has very diminished radial pulses and difficult to find posterior tibialis. Patient remains afebrile. Blood cultures from 08/30 were no growth. Urine culture was negative. No other cultures were obtained. MEDICATIONS: Vancomycin he received from 08/31 to 09/07 and he finished a two week course of Zosyn from 08/29 to 09/13. LABORATORY DATA: White count 12.8, hemoglobin 9.7, hematocrit 30.5, platelets 242,000. Sodium 138, potassium 3.7, chloride 102, bicarb 26, BUN 59, creatinine 10.4, glucose 84. Calcium 9.4. Ferritin 1,360, iron 23, TIBC 145, iron saturation 15.9. IMPRESSION: Gangrene of the toes of unclear etiology, probably most likely ischemic in origin and not infectious, vasculitis in the workup. Gangrene is dry and stable. Dr. Bahena is holding off on amputation as he is concerned about the healing process. He has finished two weeks of antibiotics and I would not recommend any further antibiotics upon discharge. There has been discussion about using steroids with Dr. Andrews. Dr. Corral has not recommended that, but I will leave that up to the market intelligence consultant. Hepatitis B, C, HIV, COVID PCR, Influenza A, B, RSV all were negative. ANCA, RONY, double stranded DNA complement levels were all normal. Pathology is pending.
== END ==
LOC: M LAB REF 13:15
PROVIDERS: ATTEND Dermatology
DX: D68.61 Antiphospholipid syndrome (principal)

== ENCOUNTER 2020-10-20 07:27 | Inpatient (IN) | payer BC ==
[~2020-10-20] VITALS: Ht 182.9 cm; Wt 93.1 kg
[2020-10-20] MEDS ORDERED: MIRA3350 PO (07:42)
[2020-10-20] MEDS ORDERED: FLEEENE12 PR (07:42)
[2020-10-20] MEDS ORDERED: GLYCERIN ADULT SUPP PR ONE (08:35)
[2020-10-20] MEDS ORDERED: METHYLNALTREXONE BROMIDE 12 MG/0.6 ML VIAL (RELISTOR) SC ONE (08:35)
[2020-10-20] MEDS ORDERED: MAGNESIUM CITRATE 300 ML BTL PO ONE (08:35)
--- NOTE | 2020-10-20 08:42 | REP ---
INDICATION: r/o constipation COMPARISON: None. TECHNIQUE: Supine view of the abdomen and pelvis. FINDINGS: There is no evidence for bowel obstruction or perforation. Moderate fecal stasis is suggested and should be correlated clinically. No organomegaly. No abnormal calcifications or foreign body. Extensive atherosclerotic disease noted to the vasculature. Skeletal structures demonstrate age-related changes. IMPRESSION: Moderate fecal stasis/constipation is suggested and should be correlated clinically. <Electronically signed by Alton Rivera > 10/20/20 [id number]
[2020-10-20 09:39] LABS: BASO % 0.4 % (0.0-1.0); EOS # 0.1 10^3/uL (0.0-0.5); EOS % 0.8 % (0.0-3.0); HEMATOCRIT 29.2 % (42.0-52.0); HEMOGLOBIN 9.5 g/dl (13.5-17.5); LYMPH # 0.7 10^3/uL (1.5-5.0); MEAN CORPUSCULAR HEMOGLOBIN 29.8 pg (27.0-33.0); MEAN CORPUSCULAR HGB CONC 32.5 g/dl (32.0-36.5); MEAN CORPUSCULAR VOLUME 91.5 fl (80.0-96.0); MONO # 0.8 10^3/uL (0.0-0.8); MONO % 7.5 % (2.0-8.0); NEUTROPHILS # 8.5 10^3/uL (1.5-8.5); NEUTROPHILS % 83.9 % (36.0-66.0); PLATELET COUNT, AUTOMATED 200 10^3/uL (150-450); RED BLOOD COUNT 3.19 10^6/uL (4.30-6.10); WHITE BLOOD COUNT 10.1 10^3/uL (4.0-10.0)
[2020-10-20 10:12] LABS: ALBUMIN 2.8 GM/DL (3.2-5.2); BILIRUBIN,DIRECT 0.2 MG/DL (0.0-0.2); BILIRUBIN,TOTAL 0.5 MG/DL (0.2-1.0); CREATININE FOR GFR 8.94 MG/DL (0.70-1.30); GLOMERULAR FILTRATION RATE 7.1 (>60); POTASSIUM SERUM 5.3 MEQ/L (3.5-5.1); TOTAL PROTEIN 8.1 GM/DL (6.4-8.2)
[2020-10-20] MEDS ORDERED: ACETAMINOPHEN 500 MG TAB PO ONE (10:50)
[2020-10-20] MEDS ORDERED: ANUSOL HC 25MG SUPP PR STA (12:42)
[2020-10-20] MEDS ORDERED: VANCOMYCIN 1000MG/20ML VIAL IP ONE (14:35)
[2020-10-20] MEDS ORDERED: VANCOMYCIN HCL 1,000 MG, VIAL MATE ADAPTER 1 EACH in NS 250 ML IV ONE (14:40)
[2020-10-20] MEDS ORDERED: ECOT81TA5 PO (15:52)
[2020-10-20] MEDS ORDERED: ACET-683 PO (15:52)
[2020-10-20] MEDS ORDERED: RENV2TAB PO (15:53)
[2020-10-20] MEDS ORDERED: CVS1CHW13 PO (16:00)
[2020-10-20] MEDS ORDERED: probiotic gummy PO (16:00)
[2020-10-20] MEDS ORDERED: DOXY100T27 PO (16:00)
[2020-10-20] MEDS ORDERED: ROCA0.25 PO (16:00)
[2020-10-20] MEDS ORDERED: VITAD1000T PO (16:00)
[2020-10-20] MEDS ORDERED: AMLO1TAB25 PO (16:00)
[2020-10-20] MEDS ORDERED: BISACODYL ENEMA 10 MG/30 ML PR PRN (16:05)
[2020-10-20] MEDS ORDERED: DARBEPOETIN 200MCG/0.4ML *DIALYSIS* SYRINGE (J0882 PER 1MCG) IV SCH (16:05)
[2020-10-20] MEDS: GASTROGRAFIN SOLUTION 30ML PO SCH ×2 (16:10→16:40)
[2020-10-20] MEDS ORDERED: SOD POLYSTYRENE SULFONATE SUSP 15 GM/60 ML UD PO ONE (17:50)
--- NOTE | 2020-10-20 17:59 | CR.PDOC ---
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 The patient reports he was discharged from [facility] on 10/14/20 and has not had a BM since that time. He did attend his scheduled hemodialysis on Sunday10/18/20, but not today since his appointment time occurred while he was in the ER. His is present and she denies any new confusion in the patient. He states that other than his abdominal pain he has felt well recently. He has been unable to ambulate much due to his recovering R foot from his recent amputation. Otherwise, he denies any recent fevers, chills, nausea, vomiting or diarrhea. PAST MEDICAL HISTORY: ESRD on HD MWF ?FSGS or other Immune complex-mediated glomerulopathy ?Complement-mediated vasculopathy? Hypertension Gout GERD HLD PAD s/p arteriogram with arterial intervention of LLE on 08/04/20 (Dr. Mcmanus) Right foot 3rd, 4th digit ulceration (followed by Dr. Bahena, awaiting arteriogram by vascular surgery) HFrEF (EF 20-25%, last echo 08/2020) PAST SURGICAL HISTORY: 4th toe amputation by Dr. Bahena (07/07/20) Metatarsal amputation x2, R foot at [facility] 09/2020 Right knee surgery SOCIAL HISTORY: Drinks alcohol, Denies tobacco use, Denies illicit drug use. Specialist include: Dr. Bahena- podiatry, Dr. Mcmanus- vascular surgery, PCP- [facility], Nephrology- Dr. Howe, Cardiology- Dr. Conley. Lives alone, FULL CODE FAMILY HISTORY: Mother had a history of breast cancer and diabetes Sister living no medical problems Father unknown ALLERGIES: Please see below. REVIEW OF SYSTEMS: Constitutional: No Weight Change, No Fever, No Chills, No Night Sweats, No Fatigue, No Malaise ENT/Mouth: No Hearing Changes, No Ear Pain, No Nasal Congestion, No Sinus Pain, No Hoarseness, No sore throat, No Rhinorrhea, No Swallowing Difficulty Eyes: No Eye Pain, No Swelling, No Redness, No Foreign Body, No Discharge, No V ision Changes Cardiovascular: No Chest Pain, No SOB, No PND, No Dyspnea on Exertion, No Orthopnea, No Claudication, No Edema, No Palpitations Respiratory: No Cough, No Wheezing, No Dyspnea Gastrointestinal: Reports severe constipation, abdominal pain in the left upper and lower quadrants Genitourinary: No Dysuria Musculoskeletal: No Arthralgias, No Myalgias, No Joint Swelling, No Joint Stiffness, No Back Pain, No Neck Pain Skin: No Skin Lesions, No Pruritis, No Hair Changes, No Breast/Skin Changes, No Nipple Discharge Neuro: No Weakness, No Numbness, No Paresthesias, No Loss of Consciousness, No Syncope, No Dizziness, No Headache, Psych: No Anxiety/Panic, No Depression, No Insomnia, No Personality Changes, No Delusions Heme/Lymph: No Bruising, No Bleeding, No Transfusions History, No Lymphadenopathy Endocrine: No Polyuria, No Polydipsia, No Temperature Intolerance HOME MEDICATIONS: Please see below. PHYSICAL EXAMINATION: VITAL SIGNS: see below GENERAL: somewhat disheveled, alert and oriented, in no apparent distress, pleasant and conversant in full sentences. HEENT: PERRL, EOMI, Oral mucous membranes are moist without lesions. NECK: The patient has no noted JVD. No adenopathy is appreciated. No thyromegaly CHEST/LUNGS: Lungs are clear bilaterally without rhonchi, rales, or wheezes. There is no subcutaneous air appreciated. There is no tenderness to the chest wall. CHEST WALL: dialysis catheter present in the left chest wall HEART: Regular rate and rhythm. No murmurs, rubs, or gallops are appreciated. Distal pulses are 2+. No carotid bruits appreciated. ABDOMEN: Quite distented and extremely tender to palpation in the left upper and lower quadrant, +BS, no discernable organomegaly EXTREMITIES: No peripheral edema. There is no focal long bone tenderness or de formity. Patient is wearing a boot on the RLE SKIN: The patients skin is warm and dry, without rashes or lesions. PSYCHIATRIC: AAO x 3, normal mood/affect NEUROLOGIC: The patient has 5/5 strength to the upper and lower extremities bilaterally. Sensation is intact throughout. Deep tendon reflexes are 2+ in all four extremities. There are no deficits to the cranial nerves. LABORATORY DATA: See below. IMAGING: ABDOMINAL XR: FINDINGS: There is no evidence for bowel obstruction or perforation. Moderate fecal stasis is suggested and should be correlated clinically. No organomegaly. No abnormal calcifications or foreign body. Extensive atherosclerotic disease noted to the vasculature. Skeletal structures demonstrate age-related changes. IMPRESSION: Moderate fecal stasis/constipation is suggested and should be correlated clinically. CT ABD/PEL with ORAL AND IV CONTRAST Pending MICROBIOLOGY: Please see below. ASSESSMENT: This is a 35 YO M with history of ESRD on HD MWF, recently diagnosed immune-complex mediated glomerulopathy, systolic CHF (LVEF 25-30%) recently hospitalized at [facility] s/p R foot metatarsal amputation x 2 who presents with 6 days without BM, constipation, abdominal pain concerning for mesenteric ischemia 2/2 vasculopathy vs abdominal infection. PLAN: 1. ESRD on HD MWF: Cr found to be 8.94, patient missed scheduled HD today. Last HD was on Sunday morning -Will plan to dialyze the patient in the AM 2. Hyperkalemia: K found to be 5.3 -No EKG changes noted -Will give one time dose of Kayexalate 3. Abdominal pain, constipation: -Will await results of CT Abd/Pel with IV and PO contrast -Continue bowel regimen 4. Chronic systolic congestive heart failure with reduced EF (LVEF 20-25% on last Echo, 08/2020) -Continue Entresto -Patient does not appear clinically fluid overloaded 5. Hyperphosphatemia, sequelae of CKD: -Continue Renvela with meals 6. Renovascular hypertension: -BP well-controlled in ED -Continue Coreg, Norvasc 7. Secondary hyperparathyroidism: -Continue Calcitriol 8. Anemia of CKD: -Hgb today 9.5, appears to be his baseline -Will receive darbopoeitin with HD DISPO: Pending further workup of abdominal pain, plan for HD in AM Vital Signs/I&O Vital Signs Date Time Temp Pulse Resp B/P (MAP) Pulse Ox O2 Delivery O2 Flow Rate FiO2 10/20/20 14:03 101.0 92 20 108/57 (74) 98 Room Air Laboratory Data Labs 24H Laboratory Tests 2 10/20/20 09:05: Immature Granulocyte % (Auto) 0.4, Neutrophils (%) (Auto) 83.9H, Lymphocytes (%) (Auto) 7.0L, Monocytes (%) (Auto) 7.5, Eosinophils (%) (Auto) 0.8, Basophils (%) (Auto) 0.4, Neutrophils # (Auto) 8.5, Lymphocytes # (Auto) 0.7L, Monocytes # (Auto) 0.8, Eosinophils # (Auto) 0.1, Basophils # (Auto) 0.0, Nucleated Red Blood Cells % (auto) 0.0, Anion Gap 8, Glomerular Filtration Rate 7.1L, Calcium Level 10.0, Total Bilirubin 0.5, Direct Bilirubin 0.2, Aspartate Amino Transf (AST/SGOT) 17, Alanine Aminotransferase (ALT/SGPT) 13, Alkaline Phosphatase 171H, Total Protein 8.1, Albumin 2.8L, Albumin/Globulin Ratio 0.5, Lipase 134 10/20/20 15:09: Lactic Acid Level 1.6 CBC/BMP Laboratory Tests 10/20/20 09:05 Microbiology Microbiology 10/20/20 Respiratory Virus Panel (PCR) ([facility]) - Final, Complete 10/20/20 Blood Culture, Received Pending 10/20/20 Blood Culture, Received Pending Allergies Coded Allergies: No Known Drug Allergies (Verified Allergy, Unknown, 08/27/20) Home Medications Scheduled Amlodipine Besylate (Amlodipine Besylate) 10 Mg Tablet, 10 MG PO DAILY, (Reported) Aspirin (Ecotrin) 81 Mg Tablet.dr, 81 MG PO DAILY, (Reported) Atorvastatin Calcium (Atorvastatin Calcium) 40 Mg Tablet, 40 MG PO QHS, (Reported) Calcitriol (Rocaltrol) 0.25 Mcg Capsule, 0.25 MCG PO DAILY, (Reported) Carvedilol (Carvedilol) 25 Mg Tablet, 25 MG PO BID, (Reported) Cholecalciferol (Vitamin D3) (Vitamin D3) 25 Mcg Tablet, 25 MCG PO DAILY, (Re ported) Darbepoetin [place] in Polysorbat (Aranesp) 200 Mcg/0.4 Ml Syringe, 200 MCG IV HD for 1 Days, #1 Doxycycline Monohydrate (Doxycycline Monohydrate) 100 Mg Tablet, 100 MG PO BID, (Reported) Inulin (Fiber Gummies) 2 Gm Tab.chew, 2 CHW PO DAILY, (Reported) Pantoprazole Sodium (Pantoprazole Sodium) 20 Mg Tablet.dr, 20 MG PO QHS, (Reported) Polyethylene Glycol 3350 (Miralax) 119 Gm Powder, 17 GRAM PO DAILY for constipation, #255 (Reported) dissolve in water Sacubitril/Valsartan (Entresto 49 mg-51 mg Tablet) 1 Each Tablet, 1 TAB PO BID, (Reported) Sevelamer Carbonate (Renvela) 800 Mg Tablet, 2,400 MG PO WM, (Reported) Sodium Phosphate,[place]-Dibasic (Fleet Enema) 133 Ml Enema, 1 CAROLEE [place] ONCE, #1 (Reported) [probiotic gummy] , 2 CHEW PO DAILY, (Reported) Scheduled PRN Acetaminophen (Acetaminophen) 500 Mg Tablet, 1,000 MG PO Q6H PRN for PAIN / FEVER, (Reported) GME ATTESTATION GME ATTESTATION My faculty preceptor for this patient encounter was physically present during the encounter and was fully available. All aspects of the patient interview, examination, medical decision making process, and medical care plan development were reviewed and approved by the faculty preceptor. The faculty preceptor is aware and concurs with the plan as stated in the body of this note and will attest to such by his/her cosignature. Attending Note Attending Note Pt was seen tonight in ER. Recently admitted at [facility] for severe and complex generalized vasculopathy and gangrene of Multiple toes. ESRD on HD. 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 He was started on calcium channel kim.HE got bilat TMA. He is constipated for last 5 days since he was discharged and he c/o pain LLQ abdomen. 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 HD MWF HFrEF Anemia in ESRD Hyperlipidemia. s/p Bilat TMA Hyperkalemia Keep NPO for now. IV fluids started. IV abx according to ESRD dosing. Hold antihypertensive for now. Wound care of TMA as per nursing. HD tomorrow. Surgical consult for Colonic perforation. RICKIE WOOTEN MD Oct 20, 2020 17:59 DAYANNA LOMAX MD Oct 20, 2020 22:51
[2020-10-20] MEDS ORDERED: (RENVELA) SEVELAMER **CARBONate** 800 MG TAB PO SCH (18:00)
[2020-10-20] MEDS ORDERED: ACETAMINOPHEN 500 MG TAB PO PRN (18:00)
[2020-10-20] MEDS ORDERED: ISOVUE-370 76% 100ML VIAL As Ordered ONE (18:07)
--- NOTE | 2020-10-20 19:56 | REPVR ---
PROCEDURE INFORMATION: Exam: CT Abdomen And Pelvis With Contrast Exam date and time: 10/20/2020 6:14 PM Age: 35 years old Clinical indication: Abdominal pain; Additional info: Abd pain, constipation TECHNIQUE: Imaging protocol: Computed tomography of the abdomen and pelvis with contrast. Radiation optimization: All CT scans at this facility use at least one of these dose optimization techniques: automated exposure control; mA and/or kV adjustment per patient size (includes targeted exams where dose is matched to clinical indication); or iterative reconstruction. Contrast material: ISO 370; Contrast volume: 30 ml; Contrast route: INTRAVENOUS (IV); COMPARISON: 1. CT ANGIO ABDOMINAL ARTERIES 09/07/2020 7:54 AM 2. CR Abdomen,Flat Plate KUB 10/20/2020 8:06:[address] Chest without contrast 07/04/2020 6:13:22 AM FINDINGS: Tubes, catheters and devices: Density in the superior vena cava on the superior most images may represent a central venous catheter tip. Lungs: Included lung bases are clear. Small amount of calcification in the thoracic aorta and aortic valve. Liver: Normal. No mass. Gallbladder and bile ducts: Normal. No calcified stones. No ductal dilation. Pancreas: Normal. No ductal dilation. Spleen: The spleen is enlarged, measuring 16.4 cm in length. Adrenal glands: Normal. No mass. Kidneys and ureters: There is bilateral renal atrophy. Simple cysts in each kidney, with the largest on the left measuring 1.1 cm and the largest on the right measuring 2.1 cm. No hydronephrosis. Multiple calcifications at the renal aj bilaterally may be vascular calcifications. Stomach and bowel: There is fat stranding and trace fluid adjacent to the distal descending colon, where there is likely a diverticulum. There is also a small amount of adjacent free air, and additional small amount of free air in the left upper quadrant adjacent to the spleen. These findings indicate a ruptured viscus. Adjacent to the area of inflammation next to the distal descending colon, there is a tiny densely calcified vessel extending towards this region. Given dense calcification in the inferior mesenteric artery more proximally, and the notation of stenosis at the proximal MIRANDA on CT angiography of the abdomen and pelvis 09/07/2020, the patient is at increased risk for ischemic bowel which could be a different etiology for the bowel perforation. Mild distension of the ascending colon containing fluid, stool, and some contrast. No bowel obstruction. There is circumferential wall thickening at the anal rectal junction and at the anus. No drainable abscess. Appendix: Appendix is not seen. Intraperitoneal space: See "Stomach and bowel" finding. Vasculature: As before, there is extensive atherosclerotic calcification in small vessels of the abdomen and pelvis, particularly for the patient's age, suggesting diabetes. Less extensive calcification in the abdominal aorta, but still much greater than expected for the patient's age. Lymph nodes: Mild bilateral inguinal lymphadenopathy. Small nonenlarged periaortic nodes. Urinary bladder: Bladder wall appears diffusely thickened, but appearance may be exaggerated given its mostly collapsed state. Reproductive: There are calcifications in the seminal vesicles bilaterally also suggesting diabetes. Bones/joints: Partially fused right sacroiliac joint. No acute osseous abnormality. There are rudimentary ribs at T12. Partial sacralization of L5 with rudimentary disc at L5-S1. Soft tissues: Unremarkable. IMPRESSION: 1. Bowel perforation with free air, presumably the distal descending colon where there is adjacent fat stranding and trace fluid and likely a diverticulum. This may be from diverticulitis, although differential also includes ischemic bowel given the tiny calcified vessel extending to this region, extensive atherosclerotic calcification in the inferior mesenteric artery, and narrowing noted in the inferior mesenteric artery on prior CTA from 09/07/2020. 2. Splenomegaly. 3. Extensive dense atherosclerotic calcification particularly in the small vessels of the abdomen and pelvis, suggesting diabetes. 4. Bilateral renal atrophy with bilateral simple renal cysts. No further imaging follow-up is necessary for the renal cysts. 5. Circumferential wall thickening at the anal rectal junction and at the anus, suggesting an infectious or inflammatory process. 6. Partially fused right sacroiliac joint. Transitional anatomy at the thoracolumbar and lumbosacral junctions. 7. Density in the distal superior vena cava which may be from a central vascular catheter, incompletely characterized. Recommend correlation with vascular catheters. 8. Notation of 30 cc extravasation from the technologist, presumably of intravenous contrast, site not specified. Recommend correlation with the location of extravasated contrast, monitoring of the site for skin changes, and examination to ensure the patient is neurovascularly intact distal to the area of contrast extravasation. Elevation of the affected extremity also recommended, along with ice or heat. THIS REPORT CONTAINS FINDINGS THAT MAY BE CRITICAL TO PATIENT CARE. The findings were verbally communicated via telephone conference with Dr. Chan at 7:36 PM EDT on 10/20/2020. The findings were acknowledged and understood. Electronically signed by: Samantha Davila On 10/20/2020 19:56:42 PM
[2020-10-20] MEDS ORDERED: PIPERACILLIN/TAZOBACTAM SOD 4.5 GM in D5W MINI-BAG PLUS 50 ML IV SCH (20:05)
[2020-10-20] MEDS ORDERED: DOCUSATE SODIUM 100MG CAPSULE PO SCH (21:00)
[2020-10-20] MEDS ORDERED: HEPARIN SOD (PORCINE) 5000UNITS/ML 1ML VIAL/SYRINGE SC SCH (21:00)
[2020-10-20] MEDS ORDERED: ENTRESTO 49-51MG TABLET (SACUBITRIL/VALSARTAN) PO SCH (21:00)
[2020-10-20] MEDS ORDERED: ATORVASTATIN 20 MG TAB PO SCH (21:00)
[2020-10-20] MEDS ORDERED: CARVedilol 12.5 MG TAB PO SCH (21:00)
[2020-10-20] MEDS ORDERED: PANTOPRAZOLE 20 MG TAB PO SCH (21:00)
[2020-10-20] MEDS: PIPERACILLIN/TAZOBACTAM SOD 2.25 GM in D5W MINI-BAG PLUS 50 ML IV SCH (21:27)
[2020-10-20] MEDS: D5W/0.45% SODIUM CHLORIDE 1,000 ML IV SCH (21:27)
--- NOTE | 2020-10-20 22:05 | HPEPDOC ---
General Date of Admission Oct 20, 2020 at 15:37 Date of Service: Oct 20, 2020 Chief Complaint The patient is a 35-year-old male admitted with a reason for visit of fever, ESRD on dialysis, and constipation Source: Patient History of Present Illness Mr. Flood is a 35 year old male with severe PAD, ESRD on dialysis, and HFrEF who presents with abdominal pain and constipation for the past week. He was recently here in August and transferred up to [facility] for evaluation for vasculopathy which may have been secondary to complement disease or rheumatologic disease. He was there for about a month and had metatarsal ambulations bilaterally. He was on oxycodone for pain control. His bowel movements were every other day. His last bowel movement was 10/14/2020. He was discharged on 10/15/2020. Since then he has not yet had a BM. He spoke with his home health aid, and they've tried Miralax, Milk of magnesium, Ex-lax, glycerin enema, and saline enema. There was no significant bowel movement. They have tried to disimpact but was not successful. Patient was brought into the ED. He missed dialysis due to this constipation. In the ED, KUB demonstrated moderate fecal stasis and constipation. In addition, patient had a fever. Patient was admitted for fever, constipation, and hyperkalemia from missed dialysis. Nephrology was consulted and planned for dialysis tomorrow morning. Later in the evening, resident notified attending that CT abd/pelvis with contrast demonstrated bowel perforation. Resident spoke with Dr. Bates who evaluated the patient. Planning for conservative management first with IV antibiotics, NPO, and IVF. If try to go to surgery now and patient would have a colostomy bag. If fails conservative measures, patient would go to surgery. Home Medications Scheduled Amlodipine Besylate (Amlodipine Besylate) 10 Mg Tablet, 10 MG PO DAILY, (Reported) Aspirin (Ecotrin) 81 Mg Tablet.dr, 81 MG PO DAILY, (Reported) Atorvastatin Calcium (Atorvastatin Calcium) 40 Mg Tablet, 40 MG PO QHS, (Reported) Calcitriol (Rocaltrol) 0.25 Mcg Capsule, 0.25 MCG PO DAILY, (Reported) Carvedilol (Carvedilol) 25 Mg Tablet, 25 MG PO BID, (Reported) Cholecalciferol (Vitamin D3) (Vitamin D3) 25 Mcg Tablet, 25 MCG PO DAILY, (Reported) Darbepoetin [place] in Polysorbat (Aranesp) 200 Mcg/0.4 Ml Syringe, 200 MCG IV HD Doxycycline Monohydrate (Doxycycline Monohydrate) 100 Mg Tablet, 100 MG PO BID, (Reported) Inulin (Fiber Gummies) 2 Gm Tab.chew, 2 CHW PO DAILY, (Reported) Pantoprazole Sodium (Pantoprazole Sodium) 20 Mg Tablet.dr, 20 MG PO QHS, (Reported) Polyethylene Glycol 3350 (Miralax) 119 Gm Powder, 17 GRAM PO DAILY for constipation, (Reported) dissolve in water Sacubitril/Valsartan (Entresto 49 mg-51 mg Tablet) 1 Each Tablet, 1 TAB PO BID, (Reported) Sevelamer Carbonate (Renvela) 800 Mg Tablet, 2,400 MG PO WM, (Reported) Sodium Phosphate,[place]-Dibasic (Fleet Enema) 133 Ml Enema, 1 CAROLEE [place] ONCE, (Reported) [probiotic gummy] , 2 CHEW PO DAILY, (Reported) Scheduled PRN Acetaminophen (Acetaminophen) 500 Mg Tablet, 1,000 MG PO Q6H PRN for PAIN / FEVER, (Reported) Allergies Coded Allergies: No Known Drug Allergies (Verified Allergy, Unknown, 08/27/20) Past Medical History Medical History 1. ESRD on HD MWF 2. Hypertension 3. Gout 4. GERD 5. HLD 7. PAD s/p arteriogram with arterial intervention of LLE on 08/04/20 (Dr. Mcmanus) 8. HFrEF (LVEF 25% to 30%) on CASIE on 09/08/2020 Surgical History 1. 4th toe amputation by Dr. Bahena (07/07/20) 2. Right knee surgery 3. Bilateral metatarsal amputation by [facility] Family History Father: Unknown medical history Mother: History of breast cancer and diabetes Social History * Smoker: Denies Alcohol: Denies Drugs: denies A-FIB/CHADSVASC A-FIB History Current/History of A-Fib/PAF?: No Review of Systems Constitutional: Denies: Chills, Fever Eyes: Denies: Vision change ENT: Denies: Sore Throat Skin: Denies: Rash Pulmonary: Reports: Dyspnea (Cannot take deep breath due to ambdominal pain) Cardiovascular: Denies: Chest Pain Gastrointestinal: Reports: Abdominal Pain (Left lower quadrant abdominal pian that is sharp and burning. ), Constipation (Last BM was (October 14) ); Denies: Nausea, Vomiting Genitourinary: Denies: Dysuria Hematologic: Denies: Bruising Neurological: Denies: Numbness Psych: Denies: Anxiety, Depression Physical Examination General Exam: Positive: Alert, Cooperative Eye Exam: Positive: EOMI; Negative: Sclera icteric ENT Exam: Positive: Atraumatic Neck Exam: Positive: Supple Chest Exam: Positive: Clear to auscultation; Negative: Rales, Rhonchi, Wheezing Heart Exam: Positive: Tachycardic, Regular Rhythm Abdomen Exam: Positive: BS Hypoactive, Soft, Tenderness (Worse in left lower quadrant) Skin Exam: Positive: Other skin issue (Finger tips cold, left 4th finger slighly cyanotic and peeling) Neuro Exam: Positive: Normal Speech, Cranial Nerves 3-12 NL Psych Exam: Positive: Mental status NL, Mood NL Vital Signs Vital Signs Date Time Temp Pulse Resp B/P (MAP) Pulse Ox O2 Delivery O2 Flow Rate FiO2 10/20/20 14:03 101.0 92 20 108/57 (74) 98 Room Air Laboratory Data Labs 24H Laboratory Tests 2 10/20/20 09:05: Immature Granulocyte % (Auto) 0.4, Neutrophils (%) (Auto) 83.9H, Lymphocytes (%) (Auto) 7.0L, Monocytes (%) (Auto) 7.5, Eosinophils (%) (Auto) 0.8, Basophils (%) (Auto) 0.4, Neutrophils # (Auto) 8.5, Lymphocytes # (Auto) 0.7L, Monocytes # (Auto) 0.8, Eosinophils # (Auto) 0.1, Basophils # (Auto) 0.0, Nucleated Red Blood Cells % (auto) 0.0, Anion Gap 8, Glomerular Filtration Rate 7.1L, Calcium Level 10.0, Total Bilirubin 0.5, Direct Bilirubin 0.2, Aspartate Amino Transf (AST/SGOT) 17, Alanine Aminotransferase (ALT/SGPT) 13, Alkaline Phosphatase 171H, Total Protein 8.1, Albumin 2.8L, Albumin/Globulin Ratio 0.5, Lipase 134 10/20/20 15:09: Lactic Acid Level 1.6 CBC/BMP Laboratory Tests 10/20/20 09:05 Microbiology Microbiology 10/20/20 Respiratory Virus Panel (PCR) ([facility]), Received Pending 10/20/20 Blood Culture, Received Pending 10/20/20 Blood Culture, Received Pending Assessment/Plan Mr. Flood is a 35 year old male with severe PAD, ESRD on dialysis, and HFrEF who presents with abdominal pain and constipation for the past week and subsequently found to have bowel perforation. General surgery, Dr. Bates was consulted. Recommending trying trial of conservative therapy with IV antibiotics, IVF, and NPO. If patient does not improve, patient will go down to surgery Plan / VTE VTE Prophylaxis Ordered?: Yes Plan Plan 1. Bowel perforation -General surgery consulted, recommendations appreciated -Conservative measures with IVF, IV antibiotics, and NPO 2. ESRD on dialysis MWF -Nephrology consulted, recommendations appreciated -Plan for dialysis tomorrow 3. HFrEF -Not in exacerbation -Due to bowel perforation, will hold off on Entresto as patient may need surgery 4. DM -Holding insulin as NPO -Continue checking POC glucose q6h 5. DVT ppx -Bowel perforation, no chemical ppx -SCD and TEDs MICHELL MIDDLETON DO Oct 20, 2020 16:42
[2020-10-20] MEDS ORDERED: DEXTROSE 50% 50 ML SYRINGE IV PRN (22:10)
[2020-10-20] MEDS ORDERED: GLUCOSE 4GM CHEW TABLET PO PRN (22:10)
[2020-10-20] MEDS ORDERED: GLUCAGON INJ 1MG VIAL SC PRN (22:10)
[2020-10-21 00:27] VITALS: BP 99/50
[2020-10-21 04:00] VITALS: BP 137/76
[2020-10-21] MEDS: PIPERACILLIN/TAZOBACTAM SOD 2.25 GM in D5W MINI-BAG PLUS 50 ML IV SCH ×3 (04:18→21:57)
[2020-10-21 06:12] LABS: HEMATOCRIT 25.6 % (42.0-52.0); HEMOGLOBIN 8.4 g/dl (13.5-17.5); MEAN CORPUSCULAR HEMOGLOBIN 30.1 pg (27.0-33.0); MEAN CORPUSCULAR HGB CONC 32.8 g/dl (32.0-36.5); MEAN CORPUSCULAR VOLUME 91.8 fl (80.0-96.0); PLATELET COUNT, AUTOMATED 163 10^3/uL (150-450); RED BLOOD COUNT 2.79 10^6/uL (4.30-6.10); WHITE BLOOD COUNT 13.7 10^3/uL (4.0-10.0)
[2020-10-21 06:32] LABS: ALBUMIN 2.6 GM/DL (3.2-5.2); BLOOD UREA NITROGEN 63 MG/DL (7-18); CALCIUM LEVEL 9.4 MG/DL (8.5-10.1); CARBON DIOXIDE LEVEL 26 MEQ/L (21-32); CHLORIDE LEVEL 98 MEQ/L (98-107); GLOMERULAR FILTRATION RATE 6.1 (>60); GLUCOSE, FASTING 137 MG/DL (70-100); PHOSPHORUS LEVEL 4.7 MG/DL (2.5-4.9); POTASSIUM SERUM 5.3 MEQ/L (3.5-5.1); SODIUM LEVEL 133 MEQ/L (136-145)
--- NOTE | 2020-10-21 07:31 | CR ---
CONSULTATION DATE: 10/20/2020 This is a consultation for the hospitalist service. REASON FOR CONSULTATION: Free intraabdominal air. HISTORY OF PRESENT ILLNESS: The patient is an unfortunate 35-year-old man with a history of diabetes mellitus. He apparently developed fairly acute onset of renal failure which progressed to end stage requiring hemodialysis approximately four months ago. He has been performing dialysis through a catheter in the left upper chest. He developed some issues with ischemic areas of the tips of his toes and has apparently undergone at least one amputation. He returned just approximately five days ago from a stay at the [facility] where he had been referred for further evaluation of his vascular disease. He apparently underwent transmetatarsal amputations. He has had some issues with constipation because of the need for narcotics for pain management. He has remained constipated since return home on or about the 15 of October. He has been using some MiraLAX and Milk of Magnesia without significant benefit. He, therefore, presented to the emergency department today with this history of severe constipation. He did report that strained hard yesterday and was able to pass a small amount of stool. A KUB was done which demonstrated a moderate amount of stool consistent with constipation. In the emergency department, he also had a temperature to 101 degrees. He received some laxatives in the emergency department with some magnesium citrate and a glycerin suppository and did report some results with bowel movements. He underwent a CT scan of the abdomen and pelvis later in the afternoon which was interpreted as showing some free air consistent with a perforated viscus. I am now consulted to evaluate the patient regarding this process. The patient reports some mild left-sided abdominal discomfort. He has had no nausea or vomiting. He does report having had at least one or two bowel movements since he had his laxatives earlier in the day. ALLERGIES: The patient denies any known drug allergies. MEDICATIONS ON PRESENTATION: Include: - Tylenol as needed for fever and pain - amlodipine 10 mg p.o. daily - aspirin 81 mg p.o. daily - atorvastatin 40 mg p.o. at night - Rocaltrol 0.25 mcg p.o. daily - carvedilol 25 mg p.o. twice daily - cholecalciferol 25 mcg p.o. daily - Aranesp 200 mcg IV hemodialysis day number one. - doxycycline 100 mg p.o. twice daily - inulin 2 gummies p.o. daily - Protonix 20 mg p.o. at night - MiraLAX 17 grams p.o. daily - Entresto 49 mg/51 mg p.o. twice daily - Renvela 2400 mg p.o. with meals - sodium phosphate Fleet's enema per rectum as needed for constipation - probiotic gummies two daily. SURGICAL HISTORY: Significant for dialysis catheter in the left chest. He has undergone a previous right knee surgery. He has had amputations of his toes recently for vascular impairment. MEDICAL HISTORY: Significant for end-stage renal disease now requiring hemodialysis via a catheter. He has significant peripheral arterial disease. He reports that he was diagnosed with Buerger's disease while at the [facility] recently. He has a history of hypertension. He has had gout. He has undergone amputation of bilateral toes. He has a history of some gastroesophageal reflux disease. He has a history of heart failure with a reduced ejection fraction. He reports that while he was at the [facility] he was told that this had improved somewhat. FAMILY HISTORY: The patient's mother had breast cancer and diabetes. SOCIAL HISTORY: He denies any tobacco use. He does report some alcohol intake. REVIEW OF SYSTEMS: Shows no current chest pain or sensation of palpitations. He has no cough, wheezing or sputum production. He has had some mild lower abdominal discomfort associated with his constipation. He has not had any history of nausea or vomiting. His physical activity has been quite limited recently because of his lower extremity vascular issues. PHYSICAL EXAMINATION: The patient is lying quietly, mostly on his stomach on the emergency department stretcher when I came in. He does rouse readily to voice. He is alert and oriented, and cooperative. He does not appear to be in significant abdominal pain right at this time. When asked, he was able to roll back onto his back without obvious discomfort. Vital signs most recently shows his temperature was 101 degrees at 2 p.m. and 99.4 at 8:17. His pulse has been in the 80s to 90s, and his blood pressure shows a pressure of 108/57. Room air oxygen saturations are normal. Skin is warm and dry. Sclerae are anicteric. Neck appears supple. Heart examination shows a regular rhythm. The lungs show good bilateral breath sounds. The abdomen is mildly obese. There are no evident scars. He has no obvious hernia. He does have active bowel sounds in all four quadrants. There is no tympany to percussion. The abdomen is soft throughout. There is no palpable mass. He has some mild and direct tenderness in the left lower quadrant fairly lateral. There is no rebound and no guarding. His lower legs and feet are in specialized padded boots and I did not examine his feet or ankles. He does have palpable radial pulses bilaterally. LABORATORY STUDIES: Show a white count of 10, hemoglobin 10, hematocrit 29 and a platelet count of 200,000. Differential count showed 84% neutrophils, 7% lymphocytes and 8% monocytes. Chemistry profile in the emergency department showed a sodium of 134, potassium 5.3, chloride 98, CO2 of 28, BUN of 53, creatinine 8.9 and a glucose of 150. Calcium was 10.0. Lactic acid was 1.6. Liver function tests were normal with the exception of a slight elevation of the alkaline phosphatase to 171. His total protein is 8.1 with an albumin of 2.8. IMAGING DATA: His CT scan of the abdomen and pelvis was ordered in the early afternoon and performed at approximately 6:15 p.m. Stated indication was abdominal pain with constipation. I reviewed the images from this study personally. The most significant finding is some small air bubbles in the left upper quadrant adjacent to the spleen. There is a small area of inflammation adjacent to the distal descending colon with a single tiny air bubble in this vicinity. There is no evident free fluid noted within the abdomen and pelvis. He has significant vascular calcification seen. IMPRESSION: 1. Limited perforation of the distal descending colon suggestive of a perforation of a diverticulum. 2. History of constipation. 3. End-stage renal disease on hemodialysis. 4. History of heart failure. 5. Buerger's disease. RECOMMENDATIONS: At this point, the patient clearly has a perforation of the colon large enough to cause leakage of a small amount of air into the peritoneum. He has minimal findings on physical exam currently with only some very mild tenderness in a small area. He has no guarding or rebound. His white blood cell count was not markedly elevated at the time of his lab studies earlier in the day. He was counseled that there is no definite free fluid within the abdomen at this time. I advised him that it may be that we can treat this successfully with just antibiotics without the need for urgent surgical intervention. I advised him that the more aggressive approach would be to proceed with exploratory laparotomy with resection of the perforated segment of bowel and a colostomy, which would be anticipated to be temporary with an anastomosis several months down the road. I advised him that there is a chance that if we try to treat him with just antibiotics that his condition will worsen with development of more obvious peritonitis. Certainly, he is not a low risk for surgical complications if he needs to have an urgent colectomy. We discussed the option of proceeding with surgery now and its associated risks versus continuing to observe him closely with serial exams and serial labs, and see if just antibiotic treatment would be adequate for his apparent small leak. After some discussion, we agreed that we will try antibiotic therapy. I spoke with the medical records custodian associated with this patient and discussed institution of Zosyn for antibiotic coverage. I will follow the patient closely over the next several days until it is clear that he is either doing well and that the perforation has likely sealed or until it is clear that he is not tolerating this approach well. I anticipate that I will repeat a CT scan within the next couple days to see if it adds further information as to the possibility of further leakage from this site. JOAQUIN
[2020-10-21 07:38] VITALS: BP 121/57
[2020-10-21] MEDS: CALCITRIOL 0.25 MCG CAP (S0169) PO SCH (08:51)
[2020-10-21] MEDS ORDERED: SENNA 8.6 MG TAB (SENOKOT) PO SCH (09:00)
[2020-10-21] MEDS ORDERED: ASPIRIN 81MG ENTERIC TABLET PO SCH (09:00)
[2020-10-21] MEDS ORDERED: MIRALAX *UNIT DOSE* 17GM PACKET PO SCH (09:00)
[2020-10-21 09:30] LABS: VANCOMYCIN RANDOM 12.4 UG/ML
[2020-10-21] MEDS ORDERED: DARBEPOETIN 200MCG/0.4ML *DIALYSIS* SYRINGE (J0882 PER 1MCG) IV SCH (10:00)
[2020-10-21 10:43] LABS: FERRITIN 2968 NG/ML (26-388); HEPATITIS B SURFACE ANTIGEN NEGATIVE (NEGATIVE); IRON (FE) 20 UG/DL (65-175); TOTAL IRON BINDING CAPACITY 143 UG/DL (250-450)
--- NOTE | 2020-10-21 14:01 | IPNPDOC ---
Subjective Date Seen The patient was seen on 10/21/20. Subjective Chief Complaint/HPI Mr. Flodo is a 35 year old male with severe PAD, ESRD on dialysis, and HFrEF who presents with abdominal pain and constipation for the past week. Last night he was found to have perforated bowel. Resident had spoke with Dr. Bates who recommended conservative management. This morning, patient feels about the same. Continues to have abdominal pain unchanged from yesterday. Denies chest pain. Reports difficulty taking deep breath due to pain. I reached out to Dr. Bates today. Unless if patient is clinically worsening, Dr. Bates would not recommend repeat imaging today. If patient is clinically worsening, we should repeat imaging sooner, but if not, patient could wait until tomorrow for imaging. Objective Physical Examination General Exam: Positive: Alert, Cooperative Eye Exam: Positive: EOMI; Negative: Sclera icteric ENT Exam: Positive: Atraumatic Neck Exam: Positive: Supple Chest Exam: Positive: Clear to auscultation; Negative: Rales, Rhonchi, Wheezing Heart Exam: Positive: Tachycardic, Regular Rhythm Abdomen Exam: Positive: BS Hypoactive, Soft, Tenderness (Worse in left lower quadrant) Skin Exam: Positive: Other skin issue (Finger tips cold, left 4th finger slighly cyanotic and peeling) Neuro Exam: Positive: Normal Speech, Cranial Nerves 3-12 NL Psych Exam: Positive: Mental status NL, Mood NL Assessment /Plan Assessment Mr. Flood is a 35 year old male with severe PAD, ESRD on dialysis, and HFrEF who presents with abdominal pain and constipation for the past week and subsequently found to have bowel perforation. General surgery, Dr. Bates was consulted. Recommends trying trial of conservative therapy with IV antibiotics, IVF, and NPO. Dr. Bates also recommends, if patient clinically worsens, we should obtain imaging sooner, but if not clinically worsening, imaging can wait until tomorrow. Plan/VTE VTE Prophylaxis Ordered?: Yes Plan 1. Bowel perforation -General surgery consulted, recommendations appreciated -Conservative measures with IVF, IV antibiotics, and NPO -General surgery recommends that, if patient clinically worsens, low threshold to repeat imaging, but if not clinically worsening, can wait until tomorrow for imaging 2. ESRD on dialysis MWF -Nephrology consulted, recommendations appreciated -Dialysis today 3. HFrEF -Not in exacerbation -Due to bowel perforation, will hold off on Entresto as patient may need surgery 4. DM -Holding insulin as NPO -Continue checking POC glucose q6h 5. DVT ppx -Bowel perforation, no chemical ppx -SCD and TEDs Disposition: Pending clinical status and general surgery recommendations VS, I&O, 24H, Fishbone Vital Signs/I&O Vital Signs Date Time Temp Pulse Resp B/P (MAP) Pulse Ox O2 Delivery O2 Flow Rate FiO2 10/21/20 07:38 97.2 73 19 121/57 (78) 96 Room Air I&O- Last 24 Hours up to 6 AM 10/21/20 06:00 Intake Total 868 ml Output Total 600 ml Balance 268 ml Laboratory Data 24H LABS Laboratory Tests 2 10/20/20 15:09: Lactic Acid Level 1.6 10/21/20 00:12: Bedside Glucose (Misc Panel) 162H 10/21/20 05:55: Nucleated Red Blood Cells % (auto) 0.0, Anion Gap 9, Glomerular Filtration Rate 6.1L, Calcium Level 9.4, Phosphorus Level 4.7, Iron Level 20L, Total Iron Binding Capacity 143L, Transferrin % Saturation 14.0L, Ferritin 2968H, Albumin 2.6L, Random Vancomycin Level 12.4, Hepatitis B Surface Antigen NEGATIVE CBC/BMP Laboratory Tests 10/21/20 05:55 Microbiology Microbiology 10/20/20 Respiratory Virus Panel (PCR) ([place]) - Final, Complete 10/20/20 Blood Culture, Received Pending 10/20/20 Blood Culture, Received Pending MICHELL MIDDLETON DO Oct 21, 2020 14:01
[2020-10-21] MEDS ORDERED: VANCOMYCIN HCL 1,000 MG, VIAL MATE ADAPTER 1 EACH in NS 250 ML IV SCH ×2 (15:30→16:00)
[2020-10-21] MEDS ORDERED: **VANCO AFTER HD** MISC XX SCH (16:00)
[2020-10-21] MEDS ORDERED: LACTULOSE 20 GM/30 ML SYRUP UD PO ONE (18:00)
--- NOTE | 2020-10-21 19:38 | IPN ---
PROGRESS NOTE DATE: 10/21/2020 HISTORY: The patient was seen yesterday evening for a colonic perforation associated with significant constipation and possible diverticulosis. He had a minimal amount of free air in the form of perhaps 3-5 small air bubbles in the left upper abdomen. There was no free fluid identified and he had very little if any tenderness on direct exam. We made a decision to attempt non-operative management and he was started on Zosyn. He reports today some sensation of fullness, primarily in the left side of the abdomen. He is not complaining of significant tenderness or pain. Vital signs show that he has been afebrile over the past 24 hours. His pulse is in the 70's to low 80's and his blood pressure is good. He apparently had dialysis today. Intake and output shows that yesterday he had 450 mL recorded in with 600 mL of urine output. OBJECTIVE: PHYSICAL EXAMINATION: GENERAL APPEARANCE: The patient is lying quietly on the hospital bed on his right hand side. He reports he feels somewhat more comfortable on the right. He was able to roll back onto his back without obvious discomfort. SKIN: Warm and dry. ABDOMEN: Mildly obese. He does have some bowel sounds present. There is no tympany to percussion. There is some very mild tenderness to palpation in the left far lateral abdomen, lower down. There is some very mild referred tenderness on palpation in the mid abdomen to the left lateral abdomen. LABORATORY STUDIES: Today white count of 14,000 with a hemoglobin of 8, hematocrit 26 and a platelet count of 163,000. Chemistry profile today shows sodium of 133, potassium of 5.3, chloride 98, CO2 of 26, BUN of 63, creatinine of 10.2 and a glucose of 137. These are his pre dialysis labs. IMPRESSION: The patient appears to be doing fairly well on antibiotics for his bowel perforation. He has some very mild tenderness in the area of his perforation and his white count is up very slightly though it is unclear if this is related to his bowel issue. PLAN: We will continue his Zosyn for now. I will reassess him in the morning. He will have a CBC with a differential in the morning. I will start him on some Lactulose with one dose tonight and place him on some oral Neomycin as well starting tonight. If he seems to be doing less well or having more discomfort tomorrow, then I will repeat a CT scan without contrast to reassess the amount of free air. MTDD
--- NOTE | 2020-10-21 19:41 | IPNPDOC ---
Subjective General Date/Time Seen The patient was seen on 10/21/20 at 19:32. Subject Chief Complaint/History The patient is a 35-year-old male admitted with a reason for visit of Constipation/Esrd/Fever. SUBJECTIVE Mr. Flood was seen and examined at the bedside this morning. He states he feels only marginally better. He did have a bowel movement this morning but still has a lot of pain in his abdomen and cannot lay flat. He denies any fevers, chills or nausea/vomiting at this time. OBJECTIVE PHYSICAL EXAMINATION: VITAL SIGNS: see below GENERAL: somewhat disheveled, alert and oriented, in no apparent distress, pleasant and conversant in full sentences. HEENT: PERRL, EOMI, Oral mucous membranes are moist without lesions. NECK: The patient has no noted JVD. No adenopathy is appreciated. No thyromegaly CHEST/LUNGS: Lungs are clear bilaterally without rhonchi, rales, or wheezes. There is no subcutaneous air appreciated. There is no tenderness to the chest wall. CHEST WALL: dialysis catheter present in the left chest wall HEART: Regular rate and rhythm. No murmurs, rubs, or gallops are appreciated. Distal pulses are 2+. No carotid bruits appreciated. ABDOMEN: Extremely tender to palpation in the left upper and lower quadrant, +BS, no discernable organomegaly EXTREMITIES: No peripheral edema. There is no focal long bone tenderness or deformity. Both feet are wrapped in bandages SKIN: The patients skin is warm and dry, without rashes or lesions. PSYCHIATRIC: AAO x 3, normal mood/affect NEUROLOGIC: The patient has 5/5 strength to the upper and lower extremities bilaterally. Sensation is intact throughout. Deep tendon reflexes are 2+ in all four extremities. There are no deficits to the cranial nerves. LABORATORY DATA: See below. IMAGING: ABDOMINAL XR: FINDINGS: There is no evidence for bowel obstruction or perforation. Moderate fecal stasis is suggested and should be correlated clinically. No organomegaly. No abnormal calcifications or foreign body. Extensive atherosclerotic disease noted to the vasculature. Skeletal structures demonstrate age-related changes. IMPRESSION: Moderate fecal stasis/constipation is suggested and should be correlated clinically. CT ABD/PEL with ORAL AND IV CONTRAST IMPRESSION: 1. Bowel perforation with free air, presumably the distal descending colon where there is adjacent fat stranding and trace fluid and likely a diverticulum. This may be from diverticulitis, although differential also includes ischemic bowel given the tiny calcified vessel extending to this region, extensive atherosclerotic calcification in the inferior mesenteric artery, and narrowing noted in the inferior mesenteric artery on prior CTA from 09/07/2020. 2. Splenomegaly. 3. Extensive dense atherosclerotic calcification particularly in the small vessels of the abdomen and pelvis, suggesting diabetes. 4. Bilateral renal atrophy with bilateral simple renal cysts. No further imaging follow-up is necessary for the renal cysts. 5. Circumferential wall thickening at the anal rectal junction and at the anus, suggesting an infectious or inflammatory process. 6. Partially fused right sacroiliac joint. Transitional anatomy at the thoracolumbar and lumbosacral junctions. 7. Density in the distal superior vena cava which may be from a central vascular catheter, incompletely characterized. Recommend correlation with vascular catheters. 8. Notation of 30 cc extravasation from the technologist, presumably of intravenous contrast, site not specified. Recommend correlation with the location of extravasated contrast, monitoring of the site for skin changes, and examination to ensure the patient is neurovascularly intact distal to the area of contrast extravasation. Elevation of the affected extremity also recommended, along with ice or heat. MICROBIOLOGY: Please see below. ASSESSMENT: This is a 35 YO M with history of ESRD on HD MWF, recently diagnosed immune-complex mediated glomerulopathy, systolic CHF (LVEF 25-30%) recently hospitalized at [facility] s/p R foot metatarsal amputation x 2 who presents with 6 days without BM, constipation, abdominal pain found to have bowel perforation. PLAN: 1. Bowel perforation: -Continue IV antibiotics, IV fluid as needed, NPO -Patient may repeat imaging with IV contrast if needed 2. ESRD on HD MWF: -Dialysis today 3. Hyperkalemia: K found to be 5.3 -No EKG changes noted 4. Chronic systolic congestive heart failure with reduced EF (LVEF 20-25% on last Echo, 08/2020) -Hold Entresto because NPO -Patient does not appear clinically fluid overloaded 5. Hyperphosphatemia, sequelae of CKD: -Holding Renvela as NPO 6. Renovascular hypertension: -BP well-controlled -Holding home meds because NPO, can give IV meds if necessary 7. Secondary hyperparathyroidism: -Holding Calcitriol because NPO 8. Anemia of CKD: -Hgb today 8.4, appears to be his baseline -Will receive darbopoeitin with HD DISPO: Bowel perforation management per general surgery, Next HD on Sunday Current Medications Current Medications Current Medications Medications (Trade) Dose Ordered Sig/Todd Route PRN Reason Start Time Stop Time Status Last Admin Dose Admin Acetaminophen (Tylenol Tab) 1,000 mg Q6HP PRN PO PAIN / FEVER 10/20/20 18:00 Amlodipine Besylate (Norvasc) 10 mg DAILY PO 10/21/20 09:00 10/20/20 20:04 DC Aspirin (Ecotrin) 81 mg DAILY PO 10/21/20 09:00 10/20/20 20:04 DC Atorvastatin Calcium (Lipitor) 40 mg QHS PO 10/20/20 21:00 10/20/20 20:04 DC Bisacodyl (Fleet Bisacodyl) 10 mg DAILYPRN PRN PA constipation 10/20/20 16:05 10/20/20 20:05 DC Calcitriol (Rocaltrol) 0.25 mcg DAILY PO 10/21/20 09:00 10/21/20 08:51 Carvedilol (COReg) 25 mg BID PO 10/20/20 21:00 10/20/20 20:04 DC Darbepoetin [place] (Aranesp (Dialysis Use)) 200 mcg HD IV 10/20/20 16:05 10/20/20 20:04 DC Darbepoetin [place] (Aranesp (Dialysis Use)) 200 mcg HD IV 10/21/20 10:00 Dextrose (Dextrose 50%) 25 ml ASDIRECTED PRN IV SEE LABEL COMMENTS 10/20/20 22:10 Dextrose/Sodium Chloride 1,000 ml @ 60 mls/hr [id number] IV 10/20/20 20:05 10/20/20 21:27 Diatrizoate Meglum/ Diatrizoate Sod (Gastrografin) 10 ml Q30M PO 10/20/20 15:20 10/20/20 15:56 DC 10/20/20 16:40 Docusate Sodium (Colace) 100 mg BID PO 10/20/20 21:00 10/20/20 20:05 DC Glucagon (Glucagon) 1 mg ASDIRECTED PRN SC SEE LABEL COMMENTS 10/20/20 22:10 Glucose (Glucose) 16 GM ASDIRECTED PRN PO SEE LABEL COMMENTS 10/20/20 22:10 Heparin Sodium (Heparin) Please refer to ... ASDIRECTED XX 10/21/20 07:25 10/22/20 07:24 Heparin Sodium (Heparin) dose as per volume indica... ASDIRECTED PRN IV SEE LABEL COMMENTS 10/21/20 07:25 10/22/20 07:24 Heparin Sodium (Porcine) (Heparin) 5,000 units Q12H SC 10/20/20 21:00 10/20/20 20:04 DC Home Med (Med Rec Complete!) ASDIRECTED XX 10/20/20 16:05 10/20/20 16:02 DC Hydrocortisone Acetate (Anusol Hc Supp) 25 mg STAT STAT PA 10/20/20 12:42 10/20/20 12:44 DC 10/20/20 13:12 Neomycin Sulfate (Mycifradin) 1,000 mg BID PO 10/21/20 21:00 Non-Formulary Medication ( See Comment Field Below ) CHECK TO SEE IF THE PATIENT... DAILY@1600 XX 10/21/20 16:00 10/21/20 09:47 DC Pantoprazole Sodium (Protonix) 20 mg QHS PO 10/20/20 21:00 10/20/20 20:04 DC Piperacillin Sod/ Tazobactam Sod 2.25 gm/Dextrose 50 ml @ 100 mls/hr Q8H IV 10/20/20 21:00 10/21/20 16:16 Piperacillin Sod/ Tazobactam Sod 4.5 gm/Dextrose 50 ml @ 50 mls/hr Q6H IV 10/20/20 20:05 10/20/20 20:17 DC Polyethylene Glycol (Miralax) 1 pkt DAILY PO 10/21/20 09:00 10/20/20 20:04 DC Sacubitril/ Valsartan (Entresto 49-51 Mg) 1 tab BID PO 10/20/20 21:00 10/20/20 20:05 DC Senna (Senokot) 2 tab DAILY PO 10/21/20 09:00 10/20/20 20:05 DC Sevelamer Carbonate (Renvela) 2,400 mg WM PO 10/20/20 18:00 10/20/20 21:54 DC Vancomycin HCl 1000 mg/IV Miscellaneous Supplies 1 each/ Sodium Chloride 270 ml @ 270 mls/hr HD IV 10/21/20 15:30 10/20/20 19:30 DC Vancomycin HCl 1000 mg/IV Miscellaneous Supplies 1 each/ Sodium Chloride 270 ml @ 270 mls/hr HD IV 10/21/20 16:00 10/21/20 09:47 DC Allergies Coded Allergies: No Known Drug Allergies (Verified Allergy, Unknown, 08/27/20) VS,Fishbone, I+O VS, Fishbone, I+O Laboratory Tests 10/21/20 05:55 Vital Signs Date Time Temp Pulse Resp B/P (MAP) Pulse Ox O2 Delivery O2 Flow Rate FiO2 10/21/20 16:00 97.0 79 18 95 Room Air 10/21/20 07:38 121/57 (78) I&O- Last 24 Hours up to 6 AM 10/21/20 06:00 Intake Total 868 ml Output Total 600 ml Balance 268 ml GME ATTESTATION GME ATTESTATION My faculty preceptor for this patient encounter was physically present during the encounter and was fully available. All aspects of the patient interview, examination, medical decision making process, and medical care plan development were reviewed and approved by the faculty preceptor. The faculty preceptor is aware and concurs with the plan as stated in the body of this note and will attest to such by his/her cosignature. Attending Note Attending Note ESRD on HD Peripheral vascular disease s/p bilat TMA Colonic perforation and peritonitis HD today with minimal fluid removal. Cont Abx,IVF. Perf management as per surgery. RICKIE WOOTEN MD Oct 21, 2020 19:40 DAYANNA LOMAX MD Oct 21, 2020 23:12
[2020-10-21] MEDS: D5W/0.45% SODIUM CHLORIDE 1,000 ML IV SCH (19:47)
[2020-10-21 20:00] VITALS: BP 121/65
[2020-10-21] MEDS: NEOMYCIN SULFATE 500 MG TAB PO SCH (22:00)
[2020-10-22] VITALS: BP 120/70
[2020-10-22 04:00] VITALS: BP 155/65
[2020-10-22] MEDS: PIPERACILLIN/TAZOBACTAM SOD 2.25 GM in D5W MINI-BAG PLUS 50 ML IV SCH ×3 (04:26→20:56)
[2020-10-22 05:43] LABS: BASO % 0.3 % (0.0-1.0); EOS # 0.1 10^3/uL (0.0-0.5); EOS % 1.1 % (0.0-3.0); HEMATOCRIT 24.3 % (42.0-52.0); LYMPH # 0.9 10^3/uL (1.5-5.0); LYMPH % 8.5 % (24.0-44.0); MEAN CORPUSCULAR HEMOGLOBIN 29.9 pg (27.0-33.0); MEAN CORPUSCULAR HGB CONC 32.9 g/dl (32.0-36.5); MEAN CORPUSCULAR VOLUME 90.7 fl (80.0-96.0); MONO # 0.7 10^3/uL (0.0-0.8); MONO % 6.8 % (2.0-8.0); NEUTROPHILS % 82.6 % (36.0-66.0); PLATELET COUNT, AUTOMATED 148 10^3/uL (150-450); RED BLOOD COUNT 2.68 10^6/uL (4.30-6.10); WHITE BLOOD COUNT 10.9 10^3/uL (4.0-10.0)
[2020-10-22 06:01] LABS: ALBUMIN 2.4 GM/DL (3.2-5.2); CALCIUM LEVEL 9.2 MG/DL (8.5-10.1); CREATININE FOR GFR 6.76 MG/DL (0.70-1.30); GLOMERULAR FILTRATION RATE 9.9 (>60); PHOSPHORUS LEVEL 4.2 MG/DL (2.5-4.9); POTASSIUM SERUM 4.4 MEQ/L (3.5-5.1)
[2020-10-22 08:00] VITALS: BP 166/67
[2020-10-22] MEDS: NEOMYCIN SULFATE 500 MG TAB PO SCH ×2 (08:34→20:57)
[2020-10-22] MEDS: CALCITRIOL 0.25 MCG CAP (S0169) PO SCH (08:34)
[2020-10-22 12:00] VITALS: BP 145/63
[2020-10-22] MEDS: D5W/0.45% SODIUM CHLORIDE 1,000 ML IV SCH (12:45)
--- NOTE | 2020-10-22 13:21 | IPNPDOC ---
Subjective General Date/Time Seen The patient was seen on 10/22/20 at 13:18. Subject Chief Complaint/History The patient is a 35-year-old male admitted with a reason for visit of Constipation/Esrd/Fever. SUBJECTIVE Mr. Flood was seen and examined at the bedside this morning. He states he feels somewhat better. He is less tender and his belly. No other complaints, no issues overnight. OBJECTIVE PHYSICAL EXAMINATION: VITAL SIGNS: see below GENERAL: somewhat disheveled, alert and oriented, in no apparent distress, pleasant and conversant in full sentences. HEENT: PERRL, EOMI, Oral mucous membranes are moist without lesions. NECK: The patient has no noted JVD. No adenopathy is appreciated. No thyromegaly CHEST/LUNGS: Lungs are clear bilaterally without rhonchi, rales, or wheezes. There is no subcutaneous air appreciated. There is no tenderness to the chest wall. CHEST WALL: dialysis catheter present in the left chest wall HEART: Regular rate and rhythm. No murmurs, rubs, or gallops are appreciated. Distal pulses are 2+. No carotid bruits appreciated. ABDOMEN: Extremely tender to palpation in the left upper and lower quadrant, +BS, no discernable organomegaly EXTREMITIES: No peripheral edema. There is no focal long bone tenderness or deformity. Both feet are wrapped in bandages SKIN: The patients skin is warm and dry, without rashes or lesions. PSYCHIATRIC: AAO x 3, normal mood/affect NEUROLOGIC: The patient has 5/5 strength to the upper and lower extremities bilaterally. Sensation is intact throughout. Deep tendon reflexes are 2+ in all four extremities. There are no deficits to the cranial nerves. LABORATORY DATA: See below. IMAGING: ABDOMINAL XR: FINDINGS: There is no evidence for bowel obstruction or perforation. Moderate fecal stasis is suggested and should be correlated clinically. No organomegaly. No abnormal calcifications or foreign body. Extensive atherosclerotic disease noted to the vasculature. Skeletal structures demonstrate age-related changes. IMPRESSION: Moderate fecal stasis/constipation is suggested and should be correlated clinically. CT ABD/PEL with ORAL AND IV CONTRAST IMPRESSION: 1. Bowel perforation with free air, presumably the distal descending colon where there is adjacent fat stranding and trace fluid and likely a diverticulum. This may be from diverticulitis, although differential also includes ischemic bowel given the tiny calcified vessel extending to this region, extensive atherosclerotic calcification in the inferior mesenteric artery, and narrowing noted in the inferior mesenteric artery on prior CTA from 09/07/2020. 2. Splenomegaly. 3. Extensive dense atherosclerotic calcification particularly in the small vessels of the abdomen and pelvis, suggesting diabetes. 4. Bilateral renal atrophy with bilateral simple renal cysts. No further imaging follow-up is necessary for the renal cysts. 5. Circumferential wall thickening at the anal rectal junction and at the anus, suggesting an infectious or inflammatory process. 6. Partially fused right sacroiliac joint. Transitional anatomy at the thoracolumbar and lumbosacral junctions. 7. Density in the distal superior vena cava which may be from a central vascular catheter, incompletely characterized. Recommend correlation with vascular catheters. 8. Notation of 30 cc extravasation from the technologist, presumably of intravenous contrast, site not specified. Recommend correlation with the location of extravasated contrast, monitoring of the site for skin changes, and examination to ensure the patient is neurovascularly intact distal to the area of contrast extravasation. Elevation of the affected extremity also recommended, along with ice or heat. MICROBIOLOGY: Please see below. ASSESSMENT: This is a 35 YO M with history of ESRD on HD MWF, recently diagnosed immune-complex mediated glomerulopathy, systolic CHF (LVEF 25-30%) recently hospitalized at [facility] s/p R foot metatarsal amputation x 2 who presents with 6 days without BM, constipation, abdominal pain found to have bowel perforation. PLAN: 1. Bowel perforation: -Continue IV antibiotics, IV fluid as needed, NPO -Patient may repeat imaging with IV contrast if needed -Agree with Current IV fluids D5W/half-normal saline 60 mL an hour 2. ESRD on HD MWF: -Next hemodialysis treatment plan for Sunday 3. Hyperkalemia: -Appears to have resolved, potassium today 4.4 4. Chronic systolic congestive heart failure with reduced EF (LVEF 20-25% on last Echo, 08/2020) -Hold Entresto because NPO -Patient does not appear clinically fluid overloaded 5. Hyperphosphatemia, sequelae of CKD: -Holding Renvela as NPO 6. Renovascular hypertension: -BP well-controlled -Holding home meds because NPO, can give IV meds if necessary 7. Secondary hyperparathyroidism: -Holding Calcitriol because NPO 8. Anemia of CKD: -Hgb today 8.0, stable -Will receive darbopoeitin with HD -Will receive Venofer with dialysis DISPO: Bowel perforation management per general surgery, Next HD on Sunday Current Medications Current Medications Current Medications Medications (Trade) Dose Ordered Sig/Todd Route PRN Reason Start Time Stop Time Status Last Admin Dose Admin Acetaminophen (Tylenol Tab) 1,000 mg Q6HP PRN PO PAIN / FEVER 10/20/20 18:00 Amlodipine Besylate (Norvasc) 10 mg DAILY PO 10/21/20 09:00 10/20/20 20:04 DC Aspirin (Ecotrin) 81 mg DAILY PO 10/21/20 09:00 10/20/20 20:04 DC Atorvastatin Calcium (Lipitor) 40 mg QHS PO 10/20/20 21:00 10/20/20 20:04 DC Bisacodyl (Fleet Bisacodyl) 10 mg DAILYPRN PRN VT constipation 10/20/20 16:05 10/20/20 20:05 DC Calcitriol (Rocaltrol) 0.25 mcg DAILY PO 10/21/20 09:00 10/22/20 08:34 Carvedilol (COReg) 25 mg BID PO 10/20/20 21:00 10/20/20 20:04 DC Darbepoetin [place] (Aranesp (Dialysis Use)) 200 mcg HD IV 10/20/20 16:05 10/20/20 20:04 DC Darbepoetin [place] (Aranesp (Dialysis Use)) 200 mcg HD IV 10/21/20 10:00 Dextrose (Dextrose 50%) 25 ml ASDIRECTED PRN IV SEE LABEL COMMENTS 10/20/20 22:10 Dextrose/Sodium Chloride 1,000 ml @ 60 mls/hr [id number] IV 10/20/20 20:05 10/21/20 19:47 Diatrizoate Meglum/ Diatrizoate Sod (Gastrografin) 10 ml Q30M PO 10/20/20 15:20 10/20/20 15:56 DC 10/20/20 16:40 Docusate Sodium (Colace) 100 mg BID PO 10/20/20 21:00 10/20/20 20:05 DC Glucagon (Glucagon) 1 mg ASDIRECTED PRN SC SEE LABEL COMMENTS 10/20/20 22:10 Glucose (Glucose) 16 GM ASDIRECTED PRN PO SEE LABEL COMMENTS 10/20/20 22:10 Heparin Sodium (Heparin) Please refer to ... ASDIRECTED XX 10/21/20 07:25 10/22/20 07:24 DC Heparin Sodium (Heparin) dose as per volume indica... ASDIRECTED PRN IV SEE LABEL COMMENTS 10/21/20 07:25 10/22/20 07:24 DC Heparin Sodium (Porcine) (Heparin) 5,000 units Q12H SC 10/20/20 21:00 10/20/20 20:04 DC Home Med (Med Rec Complete!) ASDIRECTED XX 10/20/20 16:05 10/20/20 16:02 DC Hydrocortisone Acetate (Anusol Hc Supp) 25 mg STAT STAT VT 10/20/20 12:42 10/20/20 12:44 DC 10/20/20 13:12 Iron (Venofer) 100 mg HD IV 10/22/20 08:00 10/31/20 08:01 Neomycin Sulfate (Mycifradin) 1,000 mg BID PO 10/21/20 21:00 10/22/20 08:34 Non-Formulary Medication ( See Comment Field Below ) CHECK TO SEE IF THE PATIENT... DAILY@1600 XX 10/21/20 16:00 10/21/20 09:47 DC Pantoprazole Sodium (Protonix) 20 mg QHS PO 10/20/20 21:00 10/20/20 20:04 DC Piperacillin Sod/ Tazobactam Sod 2.25 gm/Dextrose 50 ml @ 100 mls/hr Q8H IV 10/20/20 21:00 10/22/20 04:26 Piperacillin Sod/ Tazobactam Sod 4.5 gm/Dextrose 50 ml @ 50 mls/hr Q6H IV 10/20/20 20:05 10/20/20 20:17 DC Polyethylene Glycol (Miralax) 1 pkt DAILY PO 10/21/20 09:00 10/20/20 20:04 DC Sacubitril/ Valsartan (Entresto 49-51 Mg) 1 tab BID PO 10/20/20 21:00 10/20/20 20:05 DC Senna (Senokot) 2 tab DAILY PO 10/21/20 09:00 10/20/20 20:05 DC Sevelamer Carbonate (Renvela) 2,400 mg WM PO 10/20/20 18:00 10/20/20 21:54 DC Vancomycin HCl 1000 mg/IV Miscellaneous Supplies 1 each/ Sodium Chloride 270 ml @ 270 mls/hr HD IV 10/21/20 15:30 10/20/20 19:30 DC Vancomycin HCl 1000 mg/IV Miscellaneous Supplies 1 each/ Sodium Chloride 270 ml @ 270 mls/hr HD IV 10/21/20 16:00 10/21/20 09:47 DC Allergies Coded Allergies: No Known Drug Allergies (Verified Allergy, Unknown, 08/27/20) VS,Fishbone, I+O VS, Fishbone, I+O Laboratory Tests 10/22/20 05:19 Vital Signs Date Time Temp Pulse Resp B/P (MAP) Pulse Ox O2 Delivery O2 Flow Rate FiO2 10/22/20 08:00 97.8 83 16 166/67 (100) 99 Room Air I&O- Last 24 Hours up to 6 AM 10/22/20 06:00 Intake Total 1110 ml Output Total 400 ml Balance 710 ml GME ATTESTATION GME ATTESTATION My faculty preceptor for this patient encounter was physically present during the encounter and was fully available. All aspects of the patient interview, examination, medical decision making process, and medical care plan development were reviewed and approved by the faculty preceptor. The faculty preceptor is aware and concurs with the plan as stated in the body of this note and will attest to such by his/her cosignature. RICKIE WOOTEN MD Oct 22, 2020 13:21
--- NOTE | 2020-10-22 13:37 | CR ---
CONSULTATION DATE: 10/22/2020 REASON FOR CONSULTATION: Bilateral transmetatarsal amputation. HISTORY OF PRESENT ILLNESS: Will Flood is a patient known to me from previous admissions who had been sent to [facility] for evaluation of his progressive gangrenous changes. While there he had amputation of his gangrenous toes, transmetatarsal amputations of both feet. This was performed approximately 2 weeks ago. He has been admitted to [facility] due to bowel obstruction. PAST MEDICAL HISTORY: The patient's past medical history is significant for: 1. End-stage renal disease, on dialysis. 2. Immune complex mediated glomerulopathy. 3. Complement mediated vasculopathy. 4. Hypertension. 5. Gout. 6. Gastroesophageal reflux disease. 7. Hyperlipidemia. 8. Peripheral arterial disease. PAST SURGICAL HISTORY: The patient's past surgical history includes: 1. Knee surgery. 2. Bilateral metatarsal amputations. SOCIAL HISTORY: Denies alcohol, denies current tobacco use. ALLERGIES: No known drug allergies. REVIEW OF SYSTEMS: He denies nausea, vomiting, fever or chills. PHYSICAL EXAMINATION: VITAL SIGNS: Vitals are reviewed. He has been afebrile. EXTREMITIES: Lower extremities examination there has been bilateral transmetatarsal amputations performed. The incisions are coapted. There is slight wound dehiscence on the lateral aspect of the left foot in the medial aspect of the right foot. No significant erythema or drainage is noted. LABORATORY DATA: Labs are reviewed. White blood cell count is 10.9. ASSESSMENT: A 35-year-old male status post bilateral transmetatarsal amputation secondary to gangrenous changes of both feet. PLAN: 1. Wound care orders written. 2. He is to remain non weight bearing for approximately one more week. 3. We will plan suture removal next week.
--- NOTE | 2020-10-22 15:41 | REP ---
INDICATION: assess for free air. COMPARISON: Abdomen/pelvis CT dated 10/20/2020. TECHNIQUE: Abdomen/pelvis CT without IV contrast. There is intraluminal contrast in a few bowel loops. FINDINGS: There is no pneumoperitoneum on the study today. The small bubble of air adjacent to the distal descending colon on the comparison study is no longer present. However, there is persisting fat stranding adjacent to the distal descending colon, as previously. This may represent micro perforation. There is no ascites. On the comparison study there is a focal zone of narrowing in the distal rectosigmoid colon. This is again identified today but is somewhat obscured by peristalsis in the bowel immediately proximal to this. There is a small volume of barium in the lumen of the bowel proximal to this section but no barium within the lumen of the suspected narrow segment. Possibility of a circumferential lesion at the rectosigmoid colon is raised. The visualized lung morley are unremarkable. The unenhanced hepatic parenchyma, gallbladder, pancreas are unremarkable. Spleen measures 15 cm transversely and is enlarged. This is unchanged. The adrenals are unremarkable. There are calcifications in the kidneys bilaterally, likely vascular calcifications. There are renal cortical cysts, unchanged. The aorta is unremarkable except for calcified atheroma. No periaortic adenopathy or mass. Pelvis: The bladder is unremarkable. There is no ascites or adenopathy. There are findings in the pelvic bowel loops as described above. IMPRESSION: The small bubble of extraluminal air adjacent to the distal descending colon the comparison study is no longer present. There is no other pneumoperitoneum. There is persistent pericolonic fat stranding adjacent to the distal descending colon without focal fluid collection. There is no ascites. Suspected focal area of luminal narrowing in the distal rectosigmoid colon as described. <Electronically signed by Timothy Greene > 10/22/20 [id number]
[2020-10-22 16:00] VITALS: BP 165/64
[2020-10-22 20:00] VITALS: BP 162/89
--- NOTE | 2020-10-22 20:54 | IPNPDOC ---
Subjective Date Seen The patient was seen on 10/22/20. Subjective Chief Complaint/HPI Mr. Flood is a 35 year old male with severe PAD, ESRD on dialysis, and HFrEF who presents with abdominal pain and constipation for the past week and found to have a bowel perforation. This morning, his abdominal pain is less. He had a bowel movement. General surgery ordered CT abd/pelvis which demonstrated no pneumoperitoneum. Plan to switch patient to clear liquid diet. Objective Physical Examination General Exam: Positive: Alert, Cooperative Eye Exam: Positive: EOMI; Negative: Sclera icteric ENT Exam: Positive: Atraumatic Neck Exam: Positive: Supple Chest Exam: Positive: Clear to auscultation; Negative: Rales, Rhonchi, Wheezing Heart Exam: Positive: Tachycardic, Regular Rhythm Abdomen Exam: Positive: BS Hypoactive, Soft, Tenderness (Worse in left lower quadrant) Skin Exam: Positive: Other skin issue (Finger tips cold, left 4th finger slighly cyanotic and peeling) Neuro Exam: Positive: Normal Speech, Cranial Nerves 3-12 NL Psych Exam: Positive: Mental status NL, Mood NL Assessment /Plan Assessment Mr. Flood is a 35 year old male with severe PAD, ESRD on dialysis, and HFrEF who presents with abdominal pain and constipation for the past week and subsequently found to have bowel perforation. General surgery, Dr. Bates was consulted. Treated bowel perforation conservatively with NPO, IVF, and IV antibiotics. Patient did well and repeat imaging did not demonstrate pneumoperitoneum. Advancing to clear liquid diet. Nephrology following for dialysis. Patient's next dialysis is scheduled for this Sunday. Podiatry following for bilateral transmetatarsal amputation. Placed wound care orders. Patient is to be non weight bearing for 1 more week. Plan to remove suture next week. Plan/VTE VTE Prophylaxis Ordered?: Yes Plan 1. Bowel perforation -General surgery consulted, recommendations appreciated -Conservative measures with IVF, IV antibiotics, and NPO -Repeat imaging demonstrates no pneumoperitoneum -Patient had BM -Starting patient on clear liquid diet 2. ESRD on dialysis MWF -Nephrology consulted, recommendations appreciated -Plan for dialysis on Sunday 3. Bilateral transmetatarsal amputation -Non-weight bearing for 1 week -Wound dressing per Podiatry -Remove sutures next week 4. HFrEF -Not in exacerbation -Restart carvedilol 25mg BID and Entresto 49-51 BID 4. DM -Continue checking POC glucose q6h 5. DVT ppx -Bowel perforation, no chemical ppx -SCD and TEDs Disposition: Advanced to clear liquid diet. Pending improvement in symptoms and BM VS, I&O, 24H, Fishbone Vital Signs/I&O Vital Signs Date Time Temp Pulse Resp B/P (MAP) Pulse Ox O2 Delivery O2 Flow Rate FiO2 10/22/20 16:00 98.2 79 16 165/64 (97) 98 Room Air I&O- Last 24 Hours up to 6 AM 10/22/20 06:00 Intake Total 1110 ml Output Total 400 ml Balance 710 ml Laboratory Data 24H LABS Laboratory Tests 2 10/22/20 00:04: Bedside Glucose (Misc Panel) 121H 10/22/20 05:19: Immature Granulocyte % (Auto) 0.7, Neutrophils (%) (Auto) 82.6H, Lymphocytes (%) (Auto) 8.5L, Monocytes (%) (Auto) 6.8, Eosinophils (%) (Auto) 1.1, Basophils (%) (Auto) 0.3, Neutrophils # (Auto) 9.0H, Lymphocytes # (Auto) 0.9L, Monocytes # (Auto) 0.7, Eosinophils # (Auto) 0.1, Basophils # (Auto) 0.0, Nucleated Red Blood Cells % (auto) 0.0, Anion Gap 7L, Glomerular Filtration Rate 9.9L, Calcium Level 9.2, Phosphorus Level 4.2, Albumin 2.4L 10/22/20 17:05: Bedside Glucose (Misc Panel) 130H CBC/BMP Laboratory Tests 10/22/20 05:19 Microbiology Microbiology 10/20/20 Respiratory Virus Panel (PCR) ([place]) - Final, Complete 10/20/20 Blood Culture - Preliminary, Resulted No Growth after 48 hours. All Specime... 10/20/20 Blood Culture - Preliminary, Resulted No Growth after 48 hours. All Specime... MICHELL MIDDLETON DO Oct 22, 2020 20:54
[2020-10-22] MEDS: ENTRESTO 49-51MG TABLET (SACUBITRIL/VALSARTAN) PO SCH (21:50)
[2020-10-22] MEDS: CARVedilol 12.5 MG TAB PO SCH (21:50)
[2020-10-23] VITALS: BP 122/57
[2020-10-23] MEDS: D5W/0.45% SODIUM CHLORIDE 1,000 ML IV SCH (00:54)
[2020-10-23 04:00] VITALS: BP 140/80
[2020-10-23 05:22] LABS: BASO % 0.4 % (0.0-1.0); EOS # 0.1 10^3/uL (0.0-0.5); EOS % 1.4 % (0.0-3.0); HEMATOCRIT 24.7 % (42.0-52.0); HEMOGLOBIN 8.2 g/dl (13.5-17.5); LYMPH # 1.1 10^3/uL (1.5-5.0); LYMPH % 11.1 % (24.0-44.0); MEAN CORPUSCULAR HGB CONC 33.2 g/dl (32.0-36.5); MEAN CORPUSCULAR VOLUME 90.5 fl (80.0-96.0); MONO # 0.6 10^3/uL (0.0-0.8); MONO % 6.5 % (2.0-8.0); NEUTROPHILS # 7.7 10^3/uL (1.5-8.5); NEUTROPHILS % 79.8 % (36.0-66.0); PLATELET COUNT, AUTOMATED 155 10^3/uL (150-450); RED BLOOD COUNT 2.73 10^6/uL (4.30-6.10); WHITE BLOOD COUNT 9.7 10^3/uL (4.0-10.0)
[2020-10-23] MEDS: PIPERACILLIN/TAZOBACTAM SOD 2.25 GM in D5W MINI-BAG PLUS 50 ML IV SCH ×3 (05:24→20:51)
[2020-10-23 05:52] LABS: ALBUMIN 2.2 GM/DL (3.2-5.2); CALCIUM LEVEL 9.2 MG/DL (8.5-10.1); GLOMERULAR FILTRATION RATE 8.1 (>60); PHOSPHORUS LEVEL 4.6 MG/DL (2.5-4.9); POTASSIUM SERUM 4.2 MEQ/L (3.5-5.1)
[2020-10-23 08:00] VITALS: BP 145/63
--- NOTE | 2020-10-23 08:34 | IPN ---
PROGRESS NOTE DATE: 10/22/2020 HISTORY: Patient was admitted 2 days ago after he presented with severe constipation. A CT scan showed several very small bubbles of free air in the left upper abdomen with a suggestion of a perforation in the distal descending colon. Because of the minimal amount of free air and the lack of free fluid we elected to attempt management with antibiotic therapy only. He has remained nothing by mouth except medications since admission. I gave him a dose of lactulose yesterday with some neomycin as well. Today, he reports that he has had multiple bowel movements. He reports a little bit of abdominal discomfort but it is described more as a fullness or bloating than as true pain. VITAL SIGNS: Show that he has been afebrile over the past 24 hours. His pulse is in the 70s and low 80s and his blood pressure is somewhat elevated. His systolics are in the 160s. Room air oxygen saturations are normal. Intake and output show that yesterday he had 1000 in with 400 recorded out. PHYSICAL EXAMINATION: Patient is lying quietly on the hospital bed. He moves without obvious discomfort. Heart exam shows a regular rhythm. The abdomen is nondistended. He has some bowel sounds present. The abdomen is soft. There is no rebound or guarding. There may be some very mild direct tenderness in the left lateral lower abdomen. LABORATORY STUDIES: Show a white count today of 11, hemoglobin 8, hematocrit 24, and a platelet count of 148,000. Differential count shows 83% neutrophils, 8% lymphocytes, and 7% monocytes. Chemistry profile shows a sodium of 135, potassium 4.4, chloride 101, CO2 of 27, BUN of 33, creatinine 6.8, and a glucose of 115. After seeing the patient, I ordered a followup noncontrast CT scan to reassess the amount of free air and determine if there is evidence of an ongoing leak. The CT scan was done this afternoon and this showed resolution of his small amount of free air. There may be one small bubble still that I can identify. There is some localized inflammation in the distal descending colon but there is no evidence of significant free fluid. IMPRESSION: Patient is doing very well and seems to have sealed his colonic perforation. There is no additional free air and resolution of the previously noted air bubbles on his CT scan today. He has no free fluid noted. PLAN: Patient should remain on his intravenous antibiotics for now. I will allow him some clear liquids and we will see how he does with these. JOAQUIN
[2020-10-23] MEDS: IRON SUCROSE 100MG 5ML VIAL (J1756 PER 1MG) IV SCH (09:38)
[2020-10-23 11:35] VITALS: BP_SYST 103; BP_SYST 137; BP_DIAS 55; BP_DIAS 65
[2020-10-23] MEDS: CARVedilol 12.5 MG TAB PO SCH ×2 (11:48→20:51)
[2020-10-23] MEDS: ENTRESTO 49-51MG TABLET (SACUBITRIL/VALSARTAN) PO SCH ×2 (11:48→20:51)
[2020-10-23] MEDS: CALCITRIOL 0.25 MCG CAP (S0169) PO SCH (11:48)
--- NOTE | 2020-10-23 11:57 | IPNPDOC ---
Subjective General Date/Time Seen The patient was seen on 10/23/20 at 11:49. Subject Chief Complaint/History The patient is a 35-year-old male admitted with a reason for visit of Constipation/Esrd/Fever. SUBJECTIVE Mr. Flood was seen and examined at the bedside in dialysis this morning. He states he feels much better and his abdominal pain now feels like just an "ache" in his abdominal muscles. He is eager to go home. He had another CT scan done yesterday which showed improvement with less free air apparent adjacent to the colon. Dr. Bates came to see him yesterday and at this point the plan is to switch him to oral antibiotics for discharge home in the next few days. He denies any nausea/vomiting/diarrhea at this time. OBJECTIVE PHYSICAL EXAMINATION: VITAL SIGNS: see below GENERAL: somewhat disheveled, alert and oriented, in no apparent distress, pleasant and conversant in full sentences. HEENT: PERRL, EOMI, Oral mucous membranes are moist without lesions. NECK: The patient has no noted JVD. No adenopathy is appreciated. No thyromegaly CHEST/LUNGS: Lungs are clear bilaterally without rhonchi, rales, or wheezes. There is no subcutaneous air appreciated. There is no tenderness to the chest wa ll. CHEST WALL: dialysis catheter present in the left chest wall HEART: Regular rate and rhythm. No murmurs, rubs, or gallops are appreciated. Distal pulses are 2+. No carotid bruits appreciated. ABDOMEN: Tender to deep palpation in the left lower quadrant, +BS, no discernable organomegaly EXTREMITIES: No peripheral edema. There is no focal long bone tenderness or deformity. Both feet are wrapped in bandages SKIN: The patients skin is warm and dry, without rashes or lesions. PSYCHIATRIC: AAO x 3, normal mood/affect NEUROLOGIC: The patient has 5/5 strength to the upper and lower extremities bi laterally. Sensation is intact throughout. Deep tendon reflexes are 2+ in all four extremities. There are no deficits to the cranial nerves. LABORATORY DATA: See below. IMAGING: CT ABD/PEL with ORAL AND IV CONTRAST 10/22/20 IMPRESSION: The small bubble of extraluminal air adjacent to the distal descending colon the comparison study is no longer present. There is no other pneumoperitoneum. There is persistent pericolonic fat stranding adjacent to the distal descending colon without focal fluid collection. There is no ascites. Suspected focal area of luminal narrowing in the distal rectosigmoid colon as described. MICROBIOLOGY: Please see below. ASSESSMENT: This is a 35 YO M with history of ESRD on HD MWF, recently diagnosed immune-complex mediated glomerulopathy, systolic CHF (LVEF 25-30%) recently hospitalized at [facility] s/p R foot metatarsal amputation x 2 who presents with 6 days without BM, constipation, abdominal pain found to have bowel perforation. PLAN: 1. Bowel perforation: -Continue IV antibiotics, IV fluid as needed, clear liquids diet -Agree with Current IV fluids D5W/half-normal saline 60 mL an hour 2. ESRD on HD MWF: -Hemodialysis today, will restart normal schedule on Sunday 3. Hyperkalemia: -Appears to have resolved, potassium today 4.2 4. Chronic systolic congestive heart failure with reduced EF (LVEF 20-25% on last Echo, 08/2020) -Continue Entresto -Patient does not appear clinically fluid overloaded 5. Hyperphosphatemia, sequelae of CKD: -Holding Renvela while on clear liquid diet 6. Renovascular hypertension: -BP well-controlled -Continue home Coreg 7. Secondary hyperparathyroidism: -Continue Calcitriol 8. Anemia of CKD: -Hgb today 8.2, stable -Will receive darbopoeitin with HD -Will receive Venofer with dialysis DISPO: Hemodialysis today, Bowel perforation management per general surgery, Next HD on Sunday Current Medications Current Medications Current Medications Medications (Trade) Dose Ordered Sig/Todd Route PRN Reason Start Time Stop Time Status Last Admin Dose Admin Acetaminophen (Tylenol Tab) 1,000 mg Q6HP PRN PO PAIN / FEVER 10/20/20 18:00 Amlodipine Besylate (Norvasc) 10 mg DAILY PO 10/21/20 09:00 10/20/20 20:04 DC Aspirin (Ecotrin) 81 mg DAILY PO 10/21/20 09:00 10/20/20 20:04 DC Atorvastatin Calcium (Lipitor) 40 mg QHS PO 10/20/20 21:00 10/20/20 20:04 DC Bisacodyl (Fleet Bisacodyl) 10 mg DAILYPRN PRN GA constipation 10/20/20 16:05 10/20/20 20:05 DC Calcitriol (Rocaltrol) 0.25 mcg DAILY PO 10/21/20 09:00 10/22/20 08:34 Carvedilol (COReg) 25 mg BID PO 10/20/20 21:00 10/20/20 20:04 DC Carvedilol (COReg) 25 mg BID PO 10/22/20 21:00 10/22/20 21:50 Darbepoetin [place] (Aranesp (Dialysis Use)) 200 mcg HD IV 10/20/20 16:05 10/20/20 20:04 DC Darbepoetin [place] (Aranesp (Dialysis Use)) 200 mcg HD IV 10/21/20 10:00 Dextrose (Dextrose 50%) 25 ml ASDIRECTED PRN IV SEE LABEL COMMENTS 10/20/20 22:10 10/22/20 20:00 DC Dextrose/Sodium Chloride 1,000 ml @ 60 mls/hr [id number] IV 10/20/20 20:05 10/23/20 00:54 Diatrizoate Meglum/ Diatrizoate Sod (Gastrografin) 10 ml Q30M PO 10/20/20 15:20 10/20/20 15:56 DC 10/20/20 16:40 Docusate Sodium (Colace) 100 mg BID PO 10/20/20 21:00 10/20/20 20:05 DC Glucagon (Glucagon) 1 mg ASDIRECTED PRN SC SEE LABEL COMMENTS 10/20/20 22:10 10/22/20 20:00 DC Glucose (Glucose) 16 GM ASDIRECTED PRN PO SEE LABEL COMMENTS 10/20/20 22:10 10/22/20 20:00 DC Heparin Sodium (Heparin) Please refer to ... ASDIRECTED XX 10/21/20 07:25 10/22/20 07:24 DC Heparin Sodium (Heparin) Please refer to ... ASDIRECTED XX 10/22/20 22:40 10/23/20 22:39 Heparin Sodium (Heparin) dose as per volume indica... ASDIRECTED PRN IV SEE LABEL COMMENTS 10/21/20 07:25 10/22/20 07:24 DC Heparin Sodium (Heparin) dose as per volume indica... ASDIRECTED PRN IV SEE LABEL COMMENTS 10/22/20 22:40 10/23/20 22:39 Heparin Sodium (Porcine) (Heparin) 5,000 units Q12H SC 10/20/20 21:00 10/20/20 20:04 DC Home Med (Med Rec Complete!) ASDIRECTED XX 10/20/20 16:05 10/20/20 16:02 DC Hydrocortisone Acetate (Anusol Hc Supp) 25 mg STAT STAT GA 10/20/20 12:42 10/20/20 12:44 DC 10/20/20 13:12 Iron (Venofer) 100 mg HD IV 10/22/20 08:00 10/31/20 08:01 10/23/20 09:38 Neomycin Sulfate (Mycifradin) 1,000 mg BID PO 10/21/20 21:00 10/23/20 08:51 DC 10/22/20 20:57 Non-Formulary Medication ( See Comment Field Below ) CHECK TO SEE IF THE PATIENT... DAILY@1600 XX 10/21/20 16:00 10/21/20 09:47 DC Pantoprazole Sodium (Protonix) 20 mg QHS PO 10/20/20 21:00 10/20/20 20:04 DC Piperacillin Sod/ Tazobactam Sod 2.25 gm/Dextrose 50 ml @ 100 mls/hr Q8H IV 10/20/20 21:00 10/23/20 05:24 Piperacillin Sod/ Tazobactam Sod 4.5 gm/Dextrose 50 ml @ 50 mls/hr Q6H IV 10/20/20 20:05 10/20/20 20:17 DC Polyethylene Glycol (Miralax) 1 pkt DAILY PO 10/21/20 09:00 10/20/20 20:04 DC Sacubitril/ Valsartan (Entresto 49-51 Mg) 1 tab BID PO 10/20/20 21:00 10/20/20 20:05 DC Sacubitril/ Valsartan (Entresto 49-51 Mg) 1 tab BID PO 10/22/20 21:00 10/22/20 21:50 Senna (Senokot) 2 tab DAILY PO 10/21/20 09:00 10/20/20 20:05 DC Sevelamer Carbonate (Renvela) 2,400 mg WM PO 10/20/20 18:00 10/20/20 21:54 DC Vancomycin HCl 1000 mg/IV Miscellaneous Supplies 1 each/ Sodium Chloride 270 ml @ 270 mls/hr HD IV 10/21/20 15:30 10/20/20 19:30 DC Vancomycin HCl 1000 mg/IV Miscellaneous Supplies 1 each/ Sodium Chloride 270 ml @ 270 mls/hr HD IV 10/21/20 16:00 10/21/20 09:47 DC Allergies Coded Allergies: No Known Drug Allergies (Verified Allergy, Unknown, 08/27/20) VS,Fishbone, I+O VS, Fishbone, I+O Laboratory Tests 10/23/20 05:03 Vital Signs Date Time Temp Pulse Resp B/P (MAP) Pulse Ox O2 Delivery O2 Flow Rate FiO2 10/23/20 08:00 97.5 78 16 145/63 (90) 99 Room Air I&O- Last 24 Hours up to 6 AM 10/23/20 06:00 Intake Total 1030 ml Output Total 400 ml Balance 630 ml GME ATTESTATION GME ATTESTATION My faculty preceptor for this patient encounter was physically present during the encounter and was fully available. All aspects of the patient interview, examination, medical decision making process, and medical care plan development were reviewed and approved by the faculty preceptor. The faculty preceptor is aware and concurs with the plan as stated in the body of this note and will attest to such by his/her cosignature. Attending Note Attending Note ESRD on HD colonic perforation Combined CHF PVD s/p bilat TMA IV Abx. Liquid diet now. HD today. Stop IV fluid now. Clinically better today. RICKIE WOOTEN MD Oct 23, 2020 11:57 DAYANNA LOMAX MD Oct 23, 2020 14:15
--- NOTE | 2020-10-23 12:34 | IPNPDOC ---
Subjective Date Seen The patient was seen on 10/23/20. Subjective Chief Complaint/HPI Mr. Flood is a 35 year old male with severe PAD, ESRD on dialysis, and HFrEF who presents with abdominal pain and constipation for the past week and found to have a bowel perforation which now has resolved. This morning denies chest pain or dyspnea. Abdominal pain improved and he is having bowel movements. Discussed case with general surgery, Dr. Bates. Plan to switch patient to full liquid diet today and then regular tomorrow if tolerates diet. Will need 10 days of antibiotics, but will continue with IV while inpatient. Objective Physical Examination General Exam: Positive: Alert, Cooperative Eye Exam: Positive: EOMI; Negative: Sclera icteric ENT Exam: Positive: Atraumatic Neck Exam: Positive: Supple Chest Exam: Positive: Clear to auscultation; Negative: Rales, Rhonchi, Wheezing Heart Exam: Positive: Tachycardic, Regular Rhythm Abdomen Exam: Positive: BS Hypoactive, Soft, Tenderness (Worse in left lower quadrant) Skin Exam: Positive: Other skin issue (Finger tips cold, left 4th finger slighly cyanotic and peeling) Neuro Exam: Positive: Normal Speech, Cranial Nerves 3-12 NL Psych Exam: Positive: Mental status NL, Mood NL Assessment /Plan Assessment Mr. Flood is a 35 year old male with severe PAD, ESRD on dialysis, and HFrEF who presents with abdominal pain and constipation for the past week and subsequently found to have bowel perforation. General surgery, Dr. Bates was consulted. Treated bowel perforation conservatively with NPO, IVF, and IV antibiotics. Patient did well and repeat imaging did not demonstrate pneumoperitoneum. Advancing diet to full liquids today Nephrology following for dialysis. Patient's next dialysis is scheduled for this Sunday. Podiatry following for bilateral transmetatarsal amputation. Placed wound care orders. Patient is to be non weight bearing for 1 more week. Plan to remove suture next week. Plan/VTE VTE Prophylaxis Ordered?: Yes Plan 1. Bowel perforation -General surgery consulted, recommendations appreciated -Conservative measures with IVF, IV antibiotics, and NPO -Repeat imaging demonstrates no pneumoperitoneum -Patient had BM -Advancing diet to full liquids -IV Zosyn day 3 2. ESRD on dialysis MWF -Nephrology consulted, recommendations appreciated -Plan to resume regular dialysis on Sunday 3. Bilateral transmetatarsal amputation -Non-weight bearing for 1 week -Wound dressing per Podiatry -Remove sutures next week 4. HFrEF -Not in exacerbation -Restart carvedilol 25mg BID and Entresto 49-51 BID 4. DM -Continue checking POC glucose q6h 5. DVT ppx -Bowel perforation, no chemical ppx -SCD and TEDs Disposition: Advance diet to full liquids today. Regular diet tomorrow if tolerates full liquid. Patient will need 10 days of antibiotics in total. Continue with IV antibiotics for now. VS, I&O, 24H, Fishbone Vital Signs/I&O Vital Signs Date Time Temp Pulse Resp B/P (MAP) Pulse Ox O2 Delivery O2 Flow Rate FiO2 10/23/20 11:48 83 137/65 10/23/20 08:00 97.5 16 99 Room Air I&O- Last 24 Hours up to 6 AM 10/23/20 06:00 Intake Total 1030 ml Output Total 400 ml Balance 630 ml Laboratory Data 24H LABS Laboratory Tests 2 10/22/20 17:05: Bedside Glucose (Misc Panel) 130H 10/23/20 05:03: Immature Granulocyte % (Auto) 0.8, Neutrophils (%) (Auto) 79.8H, Lymphocytes (%) (Auto) 11.1L, Monocytes (%) (Auto) 6.5, Eosinophils (%) (Auto) 1.4, Basophils (%) (Auto) 0.4, Neutrophils # (Auto) 7.7, Lymphocytes # (Auto) 1.1L, Monocytes # (Auto) 0.6, Eosinophils # (Auto) 0.1, Basophils # (Auto) 0.0, Nucleated Red Blood Cells % (auto) 0.0, Anion Gap 7L, Glomerular Filtration Rate 8.1L, Calcium Level 9.2, Phosphorus Level 4.6, Albumin 2.2L CBC/BMP Laboratory Tests 10/23/20 05:03 Microbiology Microbiology 10/20/20 Respiratory Virus Panel (PCR) ([facility]) - Final, Complete 10/20/20 Blood Culture - Preliminary, Resulted No Growth after 48 hours. All Specime... 10/20/20 Blood Culture - Preliminary, Resulted No Growth after 48 hours. All Specime... MICHELL MIDDLETON DO Oct 23, 2020 12:34
--- NOTE | 2020-10-23 13:13 | IPN ---
PROGRESS NOTE DATE: 10/23/2020 HISTORY: Patient was admitted 3 days ago with severe constipation, and a CT scan showed a few tiny bubbles of free air in the upper abdomen with a suggestion of a small perforation in the distal descending colon, probably at a diverticulum. He has responded well to antibiotic therapy, and a CT scan yesterday showed resolution of his air bubbles with no sign of any significant free intra-abdominal fluid. He continues on his Zosyn for now. He has been tolerating clear liquids. He just returned from hemodialysis today. Vital signs show that he has been afebrile over the past 24 hours. His pulse is in the 70s generally, and his blood pressure is improved today. Intake and output show that yesterday he had 1500 mL recorded in with 400 recorded out. There is no oral intake recorded yesterday, although I witnessed him drinking in the afternoon. He apparently had 1000 mL removed at hemodialysis. PHYSICAL EXAMINATION: Patient is alert and oriented. He denies significant pain but allows that there is what he describes as some muscle soreness. His abdomen is mildly protuberant. He has positive bowel sounds. The abdomen is soft without any apparent significant point tenderness. Laboratory studies today show a white count of 10, hemoglobin 8, hematocrit 25, and a platelet count of 155,000. Differential count shows 80% neutrophils, 11% leukocytosis, and 6% monocytes. Chemistry profile shows sodium 134, potassium 4.2, chloride 102, CO2 of 25, BUN 37, creatinine 8, and a glucose of 109. This is before his dialysis today. IMPRESSION: Patient is doing very well and shows no evidence of significant abdominal infection. He is now [address] showed a couple of tiny air bubbles, which had resolved on CT yesterday. RECOMMENDATIONS: I would recommend continuing him on IV Zosyn for another day or two and then consider converting him to broad-spectrum oral antibiotics to complete a 10-day course. His diet could be advanced to full liquids, I think, today and potentially to solid food tomorrow. At this point, I would not recommend any routine followup imaging as long as he continues to do well clinically. CLIFTON-FINE HOSPITALShonna
[2020-10-23 16:00] VITALS: BP 130/59
[2020-10-23] MEDS: LIDOCAINE 5% (LIDODERM) PATCH TD SCH (16:47)
[2020-10-23 20:00] VITALS: BP 149/81
[2020-10-23] MEDS: **NOTE PATIENT COMMENT** MISC XX SCH (20:53)
[2020-10-24] VITALS: BP 138/76
[2020-10-24 04:00] VITALS: BP 148/83
[2020-10-24] MEDS: PIPERACILLIN/TAZOBACTAM SOD 2.25 GM in D5W MINI-BAG PLUS 50 ML IV SCH ×3 (05:02→21:56)
[2020-10-24 06:38] LABS: HEMATOCRIT 26.2 % (42.0-52.0); HEMOGLOBIN 8.7 g/dl (13.5-17.5); MEAN CORPUSCULAR HEMOGLOBIN 29.9 pg (27.0-33.0); MEAN CORPUSCULAR HGB CONC 33.2 g/dl (32.0-36.5); PLATELET COUNT, AUTOMATED 165 10^3/uL (150-450); RED BLOOD COUNT 2.91 10^6/uL (4.30-6.10); WHITE BLOOD COUNT 10.1 10^3/uL (4.0-10.0)
[2020-10-24 06:58] LABS: ALBUMIN 2.4 GM/DL (3.2-5.2); CALCIUM LEVEL 9.8 MG/DL (8.5-10.1); CREATININE FOR GFR 6.1 MG/DL (0.70-1.30); GLOMERULAR FILTRATION RATE 11.1 (>60); PHOSPHORUS LEVEL 4.6 MG/DL (2.5-4.9); POTASSIUM SERUM 4.3 MEQ/L (3.5-5.1)
[2020-10-24 08:00] VITALS: BP 143/66
[2020-10-24] MEDS: LIDOCAINE 5% (LIDODERM) PATCH TD SCH (09:00)
[2020-10-24] MEDS: CARVedilol 12.5 MG TAB PO SCH ×2 (09:08→21:57)
[2020-10-24] MEDS: ENTRESTO 49-51MG TABLET (SACUBITRIL/VALSARTAN) PO SCH ×2 (09:08→21:56)
[2020-10-24] MEDS: CALCITRIOL 0.25 MCG CAP (S0169) PO SCH (09:08)
[2020-10-24 14:00] VITALS: BP 137/91
--- NOTE | 2020-10-24 14:59 | IPN ---
PROGRESS NOTE DATE: 10/24/2020 HISTORY: Patient was admitted four days ago with severe constipation and a CT scan showed tiny bubbles of free air in the upper abdomen with a suggestion of small perforation in the distal descending colon. He has been started on antibiotics and has been monitored closely. He has complained of some abdominal soreness ever since admission and this has not changed significantly. A followup CT two days ago showed resolution of his free air. Vital signs show that the patient has been afebrile over the past 24 hours. His pulse is in the 70s to low 80s and his blood pressure is good. Room air oxygen saturations are normal. Intake and output shows that he had 1370 in yesterday with 1700 out, 1000 of which was from hemodialysis. PHYSICAL EXAMINATION: Patient is lying quietly on the bed. He moves without apparent discomfort. He denies any significant pain. ABDOMEN: Flat today and soft, without any significant tenderness on exam. LABORATORY STUDIES: Today show a white count of 10, hemoglobin 9, hematocrit 26 and a platelet count of 165,000. His chemistry profile shows sodium of 132 and otherwise normal electrolytes. His BUN is 24 with a creatinine of 6.1 and his glucose was 97. IMPRESSION: Patient is doing very well without any evidence of intraabdominal infection. RECOMMENDATIONS: At this point, I would recommend continuing his antibiotics orally to complete 10 days of antibiotics. My understanding is that the plan is for discharge tomorrow after hemodialysis and this sounds reasonable. JOAQUIN
--- NOTE | 2020-10-24 18:34 | IPN ---
NEPHROLOGY PROGRESS NOTE DATE: 10/24/2020 SUBJECTIVE: The patient was seen and examined at the bedside today morning. He is afebrile, hemodynamically stable. He reports his abdominal pain is slowly getting better. His diet is being advanced to a regular diet today. He is having bowel movements and he reports that he might get discharged from the hospital maybe tomorrow. OBJECTIVE: VITAL SIGNS: Temperature is 98.7 degrees Fahrenheit, blood pressure 137/91, pulse is 87, respiratory rate of 20, saturating 97% on room air. INTAKE AND OUTPUT: Urine reported as 300 mL since overnight. Ultrafiltration with hemodialysis was one liter. Weight in the bed scale is 91.8 kg. PHYSICAL EXAMINATION: GENERAL APPEARANCE: The patient is awake, alert, oriented x3, laying in bed in no apparent distress. HEAD AND NECK: Extraocular muscles intact. Pupils are equally round and reactive to light. Mucous membranes are moist. Neck is supple. He has a tunneled hemodialysis catheter. CARDIOVASCULAR: S1, S2, regular rate. EXTREMITIES: No edema of the bilateral lower extremities. RESPIRATORY: Chest is clear to auscultation bilaterally. Bilaterally currently no rales or rhonchi. ABDOMEN: Soft, mildly tender to deep palpation in the left lower quadrant. There is mild rebound tenderness as well. MUSCULOSKELETAL: No clubbing, no cyanosis. He has a bilateral transmetatarsal amputation. PENCIL MAKER: No focal deficits. Power is 5/5 in all extremities. LAB REVIEW: CBC showed a white blood cell count of 10.1, hemoglobin 8.7, platelet count of 165. BMP showed sodium of 132, potassium 4.3, chloride 99, bicarbonate 25, BUN 24, creatinine is 6.1. CURRENT INPATIENT MEDICATIONS: The patient's medications were all reviewed by myself. He continues to be on IV Zosyn. No other change in the medications today as compared with yesterday. ASSESSMENT AND PLAN: 1. End-stage renal disease - The patient was dialyzed yesterday. His regular dialysis days are Sunday, Sunday, Sunday. He will be placed back on Sunday, Sunday, Sunday schedule tomorrow morning. 2. Colonic perforation and intraabdominal infection - The patient was tolerating a liquid diet. He is going to be started on a regular diet. He continues to be on IV antibiotics. IV fluids were stopped. 3. Systolic congestive heart failure with a reduced ejection fraction - The patient reports that his echocardiogram showed his EF was improving when he was admitted at [facility]. His Entresto has been restarted and he is also on Coreg as well. 4. Anemia and end-stage renal disease he has been started on Venofer and he is also on Aranesp. Hemoglobin level is stable and improving. 5. Secondary hyperparathyroidism - continue current dose of Calcitriol at 0.25 mcg p.o. daily.
--- NOTE | 2020-10-24 19:56 | IPNPDOC ---
Subjective Date Seen The patient was seen on 10/24/20. Subjective Chief Complaint/HPI Mr. Flood is a 35 year old male with severe PAD, ESRD on dialysis, and HFrEF who presents with abdominal pain and constipation for the past week and found to have a bowel perforation which now has resolved. He still has abdominal pain, but improved. Diet advanced to regular diet. If he does well wtih regular diet today, possible discharge tomorrow with oral antibiotics after hemodialysis. Objective Physical Examination General Exam: Positive: Alert, Cooperative Eye Exam: Positive: EOMI; Negative: Sclera icteric ENT Exam: Positive: Atraumatic Neck Exam: Positive: Supple Chest Exam: Positive: Clear to auscultation; Negative: Rales, Rhonchi, Wheezing Heart Exam: Positive: Tachycardic, Regular Rhythm Abdomen Exam: Positive: Normal bowel sounds, Soft, Tenderness (Worse in left lower quadrant) Skin Exam: Positive: Other skin issue (Finger tips cold, left 4th finger slighly cyanotic and peeling) Neuro Exam: Positive: Normal Speech, Cranial Nerves 3-12 NL Psych Exam: Positive: Mental status NL, Mood NL Assessment /Plan Assessment Mr. Flood is a 35 year old male with severe PAD, ESRD on dialysis, and HFrEF who presents with abdominal pain and constipation for the past week and subsequently found to have bowel perforation. General surgery, Dr. Bates was consulted. Treated bowel perforation conservatively with NPO, IVF, and IV antibiotics. Patient did well and repeat imaging did not demonstrate pneumoperitoneum. Advancing diet to regular today Nephrology following for dialysis. Patient's next dialysis is scheduled for Sunday Podiatry following for bilateral transmetatarsal amputation. Placed wound care orders. Patient is to be non weight bearing for 1 more week. Plan to remove suture next week. Plan/VTE VTE Prophylaxis Ordered?: Yes Plan 1. Bowel perforation -General surgery consulted, recommendations appreciated -Conservative measures with IVF, IV antibiotics, and NPO -Repeat imaging demonstrates no pneumoperitoneum -Patient had BM -Advancing diet to full liquids -IV Zosyn day 4 2. ESRD on dialysis MWF -Nephrology consulted, recommendations appreciated -Plan to resume regular dialysis on Sunday 3. Bilateral transmetatarsal amputation -Non-weight bearing for 1 week -Wound dressing per Podiatry -Remove sutures next week 4. HFrEF -Not in exacerbation -Restart carvedilol 25mg BID and Entresto 49-51 BID 4. DM -Continue checking POC glucose q6h 5. DVT ppx -Bowel perforation, no chemical ppx -SCD and TEDs Disposition: Advance diet to regular. If does well with regular and continues to have BM, plan for discharge tomorrow after dialysis. Patient will need 10 days of antibiotics in total. Continue with IV antibiotics for now. VS, I&O, 24H, Fishbone Vital Signs/I&O Vital Signs Date Time Temp Pulse Resp B/P (MAP) Pulse Ox O2 Delivery O2 Flow Rate FiO2 10/24/20 14:00 98.7 87 20 137/91 (106) 97 Room Air I&O- Last 24 Hours up to 6 AM 10/24/20 06:00 Intake Total 1370 ml Output Total 2000 ml Balance -630 ml Laboratory Data 24H LABS Laboratory Tests 2 10/24/20 06:11: Nucleated Red Blood Cells % (auto) 0.0, Anion Gap 8, Glomerular Filtration Rate 11.1L, Calcium Level 9.8, Phosphorus Level 4.6, Albumin 2.4L CBC/BMP Laboratory Tests 10/24/20 06:11 Microbiology Microbiology 10/20/20 Respiratory Virus Panel (PCR) ([facility]) - Final, Complete 10/20/20 Blood Culture - Preliminary, Resulted No Growth after 72 hours. All specime... 10/20/20 Blood Culture - Preliminary, Resulted No Growth after 72 hours. All specime... MICHELL MIDDLETON DO Oct 24, 2020 19:56
[2020-10-24 21:30] VITALS: BP 146/98
[2020-10-24] MEDS: **NOTE PATIENT COMMENT** MISC XX SCH (21:56)
[2020-10-25] MEDS: PIPERACILLIN/TAZOBACTAM SOD 2.25 GM in D5W MINI-BAG PLUS 50 ML IV SCH (04:59)
[2020-10-25 05:48] VITALS: BP 150/84
[2020-10-25] MEDS ORDERED: LIDOCAINE 1% SDV 5ML VIAL SC PRN (06:00)
[2020-10-25] MEDS ORDERED: MIRALAX *UNIT DOSE* 17GM PACKET PO PRN (07:25)
[2020-10-25] MEDS ORDERED: DOCUSATE SODIUM 100MG CAPSULE PO SCH (07:30)
[2020-10-25 08:10] LABS: HEMATOCRIT 26.6 % (42.0-52.0); HEMOGLOBIN 8.8 g/dl (13.5-17.5); MEAN CORPUSCULAR HEMOGLOBIN 29.5 pg (27.0-33.0); MEAN CORPUSCULAR HGB CONC 33.1 g/dl (32.0-36.5); MEAN CORPUSCULAR VOLUME 89.3 fl (80.0-96.0); PLATELET COUNT, AUTOMATED 183 10^3/uL (150-450); RED BLOOD COUNT 2.98 10^6/uL (4.30-6.10); WHITE BLOOD COUNT 10.9 10^3/uL (4.0-10.0)
[2020-10-25 08:32] LABS: ALBUMIN 2.3 GM/DL (3.2-5.2); CALCIUM LEVEL 9.5 MG/DL (8.5-10.1); CREATININE FOR GFR 7.98 MG/DL (0.70-1.30); GLOMERULAR FILTRATION RATE 8.1 (>60); PHOSPHORUS LEVEL 5.4 MG/DL (2.5-4.9)
[2020-10-25] MEDS ORDERED: DOK1CAP7 PO (09:32)
[2020-10-25] MEDS ORDERED: AUGM500T34 PO (09:32)
[2020-10-25] MEDS: IRON SUCROSE 100MG 5ML VIAL (J1756 PER 1MG) IV SCH (10:35)
[2020-10-25] MEDS: LIDOCAINE 5% (LIDODERM) PATCH TD SCH (12:12)
[2020-10-25 12:13] VITALS: BP 150/84
[2020-10-25] MEDS: CALCITRIOL 0.25 MCG CAP (S0169) PO SCH (12:13)
[2020-10-25] MEDS: CARVedilol 12.5 MG TAB PO SCH (12:13)
[2020-10-25] MEDS: ENTRESTO 49-51MG TABLET (SACUBITRIL/VALSARTAN) PO SCH (12:16)
--- NOTE | 2020-10-25 13:27 | IPNPDOC ---
Subjective General Date/Time Seen The patient was seen on 10/25/20 at 13:09. Subject Chief Complaint/History The patient is a 35-year-old male admitted with a reason for visit of Constipation/Esrd/Fever. SUBJECTIVE Mr. Flood was seen and examined at the bedside in dialysis this morning. He is tolerating dialysis well. His abdominal pain has improved and he is now on a full diet. He is tolerating his diet and denies any nausea/vomiting/diarrhea or constipation at this time. Appropriate outpatient follow up with Nephrology, Cardiology, Podiatry, PCP was discussed. The patient voiced understanding. OBJECTIVE PHYSICAL EXAMINATION: VITAL SIGNS: see below GENERAL: alert and oriented, in no apparent distress, pleasant and conversant in full sentences. HEENT: PERRL, EOMI, Oral mucous membranes are moist without lesions. NECK: The patient has no noted JVD. No adenopathy is appreciated. No thyromegaly CHEST/LUNGS: Lungs are clear bilaterally without rhonchi, rales, or wheezes. There is no subcutaneous air appreciated. There is no tenderness to the chest wall. CHEST WALL: Left internal jugular dialysis catheter is present on chest wall, no erythema, clean/dry/intact HEART: Regular rate and rhythm. No murmurs, rubs, or gallops are appreciated. Distal pulses are 2+. No carotid bruits appreciated. ABDOMEN: soft, nontender to palpation, +BS, no discernible organomegaly EXTREMITIES: No peripheral edema. There is no focal long bone tenderness or deformity. Both feet are wrapped in bandages SKIN: The patients skin is warm and dry, without rashes or lesions. PSYCHIATRIC: AAO x 3, normal mood/affect NEUROLOGIC: The patient has 5/5 strength to the upper and lower extremities bilaterally. Sensation is intact throughout. There are no deficits to the cranial nerves. LABORATORY DATA: See below. IMAGING: No new imaging MICROBIOLOGY: Please see below. ASSESSMENT: This is a 35 YO M with history of ESRD on HD MWF, recently diagnosed immune-complex mediated glomerulopathy, systolic CHF (LVEF 25-30%) recently hospitalized at [facility] s/p R foot metatarsal amputation x 2 who presents with 6 days without BM, constipation, abdominal pain found to have bowel perforation. PLAN: 1. Bowel perforation: Patient is now tolerating regular diet -Status post IV antibiotics, transitioned to oral Augmentin 5 days on discharge 2. ESRD on HD MWF: -Hemodialysis today, continue with normal schedule an outpatient setting -Patient will need fistula placement in the near future, this will be scheduled in outpatient setting 3. Hyperkalemia: -Appears to have resolved, potassium today 4.0 4. Chronic systolic congestive heart failure with reduced EF (LVEF 20-25% on last Echo, 08/2020) -Continue Entresto, Coreg -Patient does not appear clinically fluid overloaded 5. Hyperphosphatemia, sequelae of CKD: -Continue home Renvela with meals 6. Renovascular hypertension: -BP well-controlled -Continue home Coreg 7. Secondary hyperparathyroidism: -Continue Calcitriol 8. Anemia of CKD: -Hgb today 8.8, stable -Will receive darbopoeitin with HD -Will receive Venofer with dialysis DISPO: Hemodialysis today, discharged home with plan to follow-up in outpatient setting for scheduling of fistula placement Current Medications Current Medications Current Medications Medications (Trade) Dose Ordered Sig/Todd Route PRN Reason Start Time Stop Time Status Last Admin Dose Admin Acetaminophen (Tylenol Tab) 1,000 mg Q6HP PRN PO PAIN / FEVER 10/20/20 18:00 10/25/20 12:46 DC 10/25/20 12:14 Amlodipine Besylate (Norvasc) 10 mg DAILY PO 10/21/20 09:00 10/20/20 20:04 DC Aspirin (Ecotrin) 81 mg DAILY PO 10/21/20 09:00 10/20/20 20:04 DC Atorvastatin Calcium (Lipitor) 40 mg QHS PO 10/20/20 21:00 10/20/20 20:04 DC Bisacodyl (Fleet Bisacodyl) 10 mg DAILYPRN PRN SD constipation 10/20/20 16:05 10/20/20 20:05 DC Calcitriol (Rocaltrol) 0.25 mcg DAILY PO 10/21/20 09:00 10/25/20 12:46 DC 10/25/20 12:13 Carvedilol (COReg) 25 mg BID PO 10/20/20 21:00 10/20/20 20:04 DC Carvedilol (COReg) 25 mg BID PO 10/22/20 21:00 10/25/20 12:46 DC 10/25/20 12:13 Darbepoetin Hamilton (Aranesp (Dialysis Use)) 200 mcg HD IV 10/20/20 16:05 10/20/20 20:04 DC Darbepoetin Hamilton (Aranesp (Dialysis Use)) 200 mcg HD IV 10/21/20 10:00 10/25/20 12:46 DC 10/25/20 09:35 Dextrose (Dextrose 50%) 25 ml ASDIRECTED PRN IV SEE LABEL COMMENTS 10/20/20 22:10 10/22/20 20:00 DC Dextrose/Sodium Chloride 1,000 ml @ 60 mls/hr [id number] IV 10/20/20 20:05 10/23/20 11:55 DC 10/23/20 00:54 Diatrizoate Meglum/ Diatrizoate Sod (Gastrografin) 10 ml Q30M PO 10/20/20 15:20 10/20/20 15:56 DC 10/20/20 16:40 Docusate Sodium (Colace) 100 mg BID PO 10/25/20 07:30 10/25/20 12:46 DC 10/25/20 12:13 Docusate Sodium (Colace) 100 mg BID PO 10/20/20 21:00 10/20/20 20:05 DC Glucagon (Glucagon) 1 mg ASDIRECTED PRN SC SEE LABEL COMMENTS 10/20/20 22:10 10/22/20 20:00 DC Glucose (Glucose) 16 GM ASDIRECTED PRN PO SEE LABEL COMMENTS 10/20/20 22:10 10/22/20 20:00 DC Heparin Sodium (Heparin) Please refer to ... ASDIRECTED XX 10/25/20 06:00 10/25/20 12:46 DC Heparin Sodium (Heparin) Please refer to ... ASDIRECTED XX 10/21/20 07:25 10/22/20 07:24 DC Heparin Sodium (Heparin) Please refer to ... ASDIRECTED XX 10/22/20 22:40 10/23/20 22:39 DC Heparin Sodium (Heparin) dose as per volume indica... ASDIRECTED PRN IV SEE LABEL COMMENTS 10/25/20 06:00 10/25/20 12:46 DC Heparin Sodium (Heparin) dose as per volume indica... ASDIRECTED PRN IV SEE LABEL COMMENTS 10/21/20 07:25 10/22/20 07:24 DC Heparin Sodium (Heparin) dose as per volume indica... ASDIRECTED PRN IV SEE LABEL COMMENTS 10/22/20 22:40 10/23/20 22:39 DC Heparin Sodium (Porcine) (Heparin) 5,000 units Q12H SC 10/20/20 21:00 10/20/20 20:04 DC Home Med (Med Rec Complete!) ASDIRECTED XX 10/20/20 16:05 10/20/20 16:02 DC Hydrocortisone Acetate (Anusol Hc Supp) 25 mg STAT STAT SD 10/20/20 12:42 10/20/20 12:44 DC 10/20/20 13:12 Iron (Venofer) 100 mg HD IV 10/22/20 08:00 10/25/20 12:46 DC 10/25/20 10:35 Lidocaine (Lidoderm Patch) 1 patch DAILY TD 10/23/20 16:35 10/25/20 12:46 DC 10/25/20 12:12 Lidocaine HCl (Lidocaine 1% Sdv) 0.5 ml ASDIRECTED PRN SC SEE LABEL COMMENTS 10/25/20 06:00 10/25/20 12:46 DC Neomycin Sulfate (Mycifradin) 1,000 mg BID PO 10/21/20 21:00 10/23/20 08:51 DC 10/22/20 20:57 Non-Formulary Medication ( See Comment Field Below ) CHECK TO SEE IF THE PATIENT... DAILY@1600 XX 10/21/20 16:00 10/21/20 09:47 DC Non-Formulary Medication ( See Comment Field Below ) REMOVE LIDODERM PATCH DAILY@21 XX 10/23/20 21:00 10/25/20 12:46 DC 10/24/20 21:56 Pantoprazole Sodium (Protonix) 20 mg QHS PO 10/20/20 21:00 10/20/20 20:04 DC Piperacillin Sod/ Tazobactam Sod 2.25 gm/Dextrose 50 ml @ 100 mls/hr Q8H IV 10/20/20 21:00 10/25/20 12:46 DC 10/25/20 04:59 Piperacillin Sod/ Tazobactam Sod 4.5 gm/Dextrose 50 ml @ 50 mls/hr Q6H IV 10/20/20 20:05 10/20/20 20:17 DC Polyethylene Glycol (Miralax) 1 pkt DAILY PO 10/21/20 09:00 10/20/20 20:04 DC Polyethylene Glycol (Miralax) 1 pkt DAILYPRN PRN PO CONSTIPATION 10/25/20 07:25 10/25/20 12:46 DC Sacubitril/ Valsartan (Entresto 49-51 Mg) 1 tab BID PO 10/20/20 21:00 10/20/20 20:05 DC Sacubitril/ Valsartan (Entresto 49-51 Mg) 1 tab BID PO 10/22/20 21:00 10/25/20 12:46 DC 10/25/20 12:16 Senna (Senokot) 2 tab DAILY PO 10/21/20 09:00 10/20/20 20:05 DC Sevelamer Carbonate (Renvela) 2,400 mg WM PO 10/20/20 18:00 10/20/20 21:54 DC Vancomycin HCl 1000 mg/IV Miscellaneous Supplies 1 each/ Sodium Chloride 270 ml @ 270 mls/hr HD IV 10/21/20 15:30 10/20/20 19:30 DC Vancomycin HCl 1000 mg/IV Miscellaneous Supplies 1 each/ Sodium Chloride 270 ml @ 270 mls/hr HD IV 10/21/20 16:00 10/21/20 09:47 DC Allergies Coded Allergies: No Known Drug Allergies (Verified Allergy, Unknown, 08/27/20) VS,Fishbone, I+O VS, Fishbone, I+O Laboratory Tests 10/25/20 07:08 Vital Signs Date Time Temp Pulse Resp B/P (MAP) Pulse Ox O2 Delivery O2 Flow Rate FiO2 10/25/20 12:13 72 150/84 10/25/20 05:48 98.3 18 97 Room Air I&O- Last 24 Hours up to 6 AM 10/25/20 06:00 Intake Total 1860 ml Output Total 250 ml Balance 1610 ml GME ATTESTATION GME ATTESTATION My faculty preceptor for this patient encounter was physically present during the encounter and was fully available. All aspects of the patient interview, examination, medical decision making process, and medical care plan development were reviewed and approved by the faculty preceptor. The faculty preceptor is aware and concurs with the plan as stated in the body of this note and will attest to such by his/her cosignature. RICKIE WOOTEN MD Oct 25, 2020 13:27
--- NOTE | 2020-10-25 22:42 | DS.PDOC ---
Discharge Summary General Date of Admission Oct 20, 2020 at 15:37 Date of Discharge Oct 25, 2020 Discharge Summary PROCEDURES PERFORMED DURING STAY: [None]. ADMITTING DIAGNOSES: 1. . DISCHARGE DIAGNOSES: 1. . COMPLICATIONS/CHIEF COMPLAINT: Constipation/Esrd/Fever. HISTORY OF PRESENT ILLNESS: . HOSPITAL COURSE: . DISCHARGE MEDICATIONS: Please see below. ALLERGIES: Please see below. PHYSICAL EXAMINATION ON DISCHARGE: VITAL SIGNS: Please see below. GENERAL: HEENT: NECK: CARDIOVASCULAR EXAMINATION: RESPIRATORY EXAMINATION: ABDOMINAL EXAMINATION: EXTREMITIES: SKIN: NEUROLOGICAL EXAMINATION: PSYCHIATRIC EXAMINATION: LABORATORY DATA: Please see below. IMAGING: PROGNOSIS: ACTIVITY: [As tolerated]. DIET: DISCHARGE PLAN: DISPOSITION: Home, Self-Care. DISCHARGE INSTRUCTIONS: 1. . ITEMS TO FOLLOWUP ON ON OUTPATIENT: 1. . DISCHARGE CONDITION: [Stable]. TIME SPENT ON DISCHARGE: Greater than minutes. Vital Signs/I&Os Vital Signs Date Time Temp Pulse Resp B/P (MAP) Pulse Ox O2 Delivery O2 Flow Rate FiO2 10/25/20 12:13 72 150/84 10/25/20 05:48 98.3 18 97 Room Air I&O- Last 24 Hours up to 6 AM 10/25/20 06:00 Intake Total 1860 ml Output Total 250 ml Balance 1610 ml Laboratory Data Labs 24H Laboratory Tests 2 10/25/20 07:08: Nucleated Red Blood Cells % (auto) 0.0, Anion Gap 11, Glomerular Filtration Rate 8.1L, Calcium Level 9.5, Phosphorus Level 5.4H, Albumin 2.3L CBC/BMP Laboratory Tests 10/25/20 07:08 Microbiology Microbiology 10/20/20 Respiratory Virus Panel (PCR) ([place]) - Final, Complete 10/20/20 Blood Culture - Final, Complete NO GROWTH AFTER 5 DAYS 10/20/20 Blood Culture - Final, Complete NO GROWTH AFTER 5 DAYS Discharge Medications Scheduled Amlodipine Besylate (Amlodipine Besylate) 10 Mg Tablet, 10 MG PO DAILY, (Reported) Amoxicillin/Potassium Clav (Augmentin 500-125 Tablet) 1 Each Tablet, 500 MG PO BID Aspirin (Ecotrin) 81 Mg Tablet.dr, 81 MG PO DAILY, (Reported) Atorvastatin Calcium (Atorvastatin Calcium) 40 Mg Tablet, 40 MG PO QHS, (Reported) Calcitriol (Rocaltrol) 0.25 Mcg Capsule, 0.25 MCG PO DAILY, (Reported) Carvedilol (Carvedilol) 25 Mg Tablet, 25 MG PO BID, (Reported) Cholecalciferol (Vitamin D3) (Vitamin D3) 25 Mcg Tablet, 25 MCG PO DAILY, (Reported) Darbepoetin Hamilton in Polysorbat (Aranesp) 200 Mcg/0.4 Ml Syringe, 200 MCG IV HD Docusate Sodium (Dok) 100 Mg Capsule, 100 MG PO BID Doxycycline Monohydrate (Doxycycline Monohydrate) 100 Mg Tablet, 100 MG PO BID, (Reported) Inulin (Fiber Gummies) 2 Gm Tab.chew, 2 CHW PO DAILY, (Reported) Pantoprazole Sodium (Pantoprazole Sodium) 20 Mg Tablet.dr, 20 MG PO QHS, (Reported) Polyethylene Glycol 3350 (Miralax) 119 Gm Powder, 17 GRAM PO DAILY for constipat ion, (Reported) dissolve in water Sacubitril/Valsartan (Entresto 49 mg-51 mg Tablet) 1 Each Tablet, 1 TAB PO BID, (Reported) Sevelamer Carbonate (Renvela) 800 Mg Tablet, 2,400 MG PO WM, (Reported) Sodium Phosphate,Crawford-Dibasic (Fleet Enema) 133 Ml Enema, 1 CAROLEE MA ONCE, (Reported) [probiotic gummy] , 2 CHEW PO DAILY, (Reported) Scheduled PRN Acetaminophen (Acetaminophen) 500 Mg Tablet, 1,000 MG PO Q6H PRN for PAIN / FEVE R, (Reported) Allergies Coded Allergies: No Known Drug Allergies (Verified Allergy, Unknown, 08/27/20) MICHELL MIDDLETON DO Oct 25, 2020 22:42
== END 2020-10-25 12:45 | disposition home or self-care (01) | DRG 254 ==
LOC: M ED 07:27 → M ED INP 15:37 → ENRESERV 23:05 → M PCU 23:45 → M MS5PR 10-24 10:15
PROVIDERS: ADMIT Internal Medicine; ATTEND Internal Medicine
PROC: 5A1D70Z Performance of Urinary Filtration, Intermittent, Less than 6 Hours Per Day (ICD-10-PCS; principal; 2020-10-21)
DX: K63.1 Perforation of intestine (nontraumatic) (principal); I13.2 Hypertensive heart and chronic kidney disease with heart failure and with stage 5 chronic kidney disease, or end stage renal disease; N18.6 End stage renal disease; M31.8 Other specified necrotizing vasculopathies; N25.81 Secondary hyperparathyroidism of renal origin; E11.9 Type 2 diabetes mellitus without complications; D63.1 Anemia in chronic kidney disease; I50.22 Chronic systolic (congestive) heart failure; E87.5 Hyperkalemia; E83.39 Other disorders of phosphorus metabolism; K59.00 Constipation, unspecified; Z79.899 Other long term (current) drug therapy; Z79.82 Long term (current) use of aspirin; M10.9 Gout, unspecified; K21.9 Gastro-esophageal reflux disease without esophagitis; Z79.4 Long term (current) use of insulin; E78.5 Hyperlipidemia, unspecified; Z89.421 Acquired absence of other right toe(s); Z89.422 Acquired absence of other left toe(s)

== ENCOUNTER → 2020-12-16 | Outpatient (REF) | payer BC ==
[~2020-12-16] MED LIST changes: +ACET-683 PO; +AMLO1TAB25 PO; +AUGM500T34 PO; +CVS1CHW13 PO; +DOXY100T27 PO; +ECOT81TA5 PO; +FLEEENE12 PR; +MIRA3350 PO; +ROCA0.25 PO; +VITAD1000T PO; +probiotic gummy PO
== END ==
LOC: M LAB REF 12:10
PROVIDERS: ATTEND Podiatrist Foot & Ankle Surgery
DX: L03.115 Cellulitis of right lower limb (principal)

== ENCOUNTER → 2020-12-17 | Outpatient (CLI) | payer BC | LOC: M LABSMTC 10:42 | PROVIDERS: ATTEND Anesthesiology | DX: Z01.812 Encounter for preprocedural laboratory examination (principal); Z20.822 Contact with and (suspected) exposure to COVID-19 ==

== ENCOUNTER 2020-12-22 07:55 | Day surgery (SDC) | payer BC ==
[~2020-12-22] VITALS: Ht 182.9 cm; Wt 103.8 kg
[~2020-12-22 07:55] MED LIST changes: +BACTDSTA PO; +BUPIVACAINE HCL 0.5% 30 ML VIAL As Ordered ONE; +D5W/0.2% SODIUM CHLORIDE 1,000 ML IV ONE; +LIDOCAINE 1% SDV 30ML VIAL As Ordered ONE; +ceFAZolin SOD 2 GM in IV 1 EA IV ONE; +dexameTHASONE 4 MG/ML 1ML VIAL (J1100 PER 1MG) As Ordered ONE
[2020-12-22] MEDS ORDERED: MIDAZOLAM INJ 2MG/2ML VIAL (J2250 PER 1MG) As Ordered ONE (09:48)
[2020-12-22] MEDS ORDERED: fentaNYL 250 MCG/5 ML INJECTION (J3010) As Ordered ONE (09:48)
[2020-12-22] MEDS ORDERED: LIDOCAINE 2% 100MG/5ML SDV (FOR ANES.) As Ordered ONE (09:49)
[2020-12-22] MEDS ORDERED: ACETAMINOPHEN 1000MG 100ML IV BTL (OFIRMEV) (J0131 PER 10MG) As Ordered ONE (09:49)
[2020-12-22] MEDS ORDERED: propofoL 200 MG/20 ML VIAL As Ordered ONE ×3 (09:49→11:43)
[2020-12-22] MEDS ORDERED: dexameTHASONE 4 MG/ML 1ML VIAL (J1100 PER 1MG) As Ordered ONE (11:21)
[2020-12-22] MEDS ORDERED: ONDANSETRON 4MG/2ML VIAL As Ordered ONE (11:21)
[2020-12-22] MEDS ORDERED: HYDR-3713 PO (11:53)
--- NOTE | 2020-12-22 12:33 | RO ---
OPERATIVE NOTE DATE OF OPERATION: 12/22/2020 SURGEON: Sundar Bahena DPM [employer] ATTENDANT: None. PREOPERATIVE DIAGNOSIS: Bilateral foot ulceration, osteomyelitis. POSTOPERATIVE DIAGNOSIS: Bilateral foot ulceration, osteomyelitis. PROCEDURE: Bilateral metatarsal excisions. ANESTHESIA: Monitored anesthesia care. PREOPERATIVE INJECTION: 30 cc of a one-to-one mixture of 1% lidocaine plain and 0.5% Marcaine plain. ESTIMATED BLOOD LOSS: 50 cc. MATERIALS: 3-0 nylon. SPECIMENS: 1. Left fifth and fourth metatarsal bones. 2. Right first, second, fourth, and fifth metatarsal bones. COMPLICATIONS: None. CONDITION: Stable. OPERATIVE INDICATIONS: Will Flood is a 35-year-old male who had bilateral transmetatarsal amputations at the [facility] due to gangrene. He had partial wound dehiscence with exposed bone and some further gangrenous changes at the amputation sites that were not healing. The decision was made to bring him to the operating room for removal of exposed bone. The patient's side and site were identified and marked in the preoperative area. Consent was reviewed and obtained. The risks, complications, and alternatives to the procedure were explained to the patient in detail and all questions were answered. PROCEDURE: The patient was brought to the operating room and placed on the operating room table in the supine position. Monitored anesthesia care was delivered by the anesthesia team. Preoperative injection of 30 cc of a one-to-one mixture of 1% lidocaine plain and 0.5% Marcaine plain were injected into both feet. Both feet were prepped and draped in normal sterile fashion. No tourniquets were used during the procedure. On the left foot, there was an ulceration along the fourth and fifth metatarsals. The nonviable tissue overlying this was removed and the prominent portions of the fourth and fifth metatarsals were excised with a sagittal saw. These were sent for pathology. The site was irrigated with normal saline. Partial wound closure was performed with 3-0 nylon. The remaining wound was packed with saline gauze. On the right foot, there was an ulceration at the julio cesar and second and fourth and fifth metatarsal sites. Again, the overlying nonviable soft tissue was removed using a #15 blade and the bone was excised with a sagittal saw. The entire fifth metatarsal bone had to be removed as necrotic gangrenous skin overlaid the entire bone. All bone was sent for pathology. The sites were irrigated with normal saline. Partial wound closure was performed with 3-0 nylon. Sterile dressings were applied. The patient was brought to the PACU with vital signs stable and neurovascular status intact. He will follow up in the office in two days.
[2020-12-22 12:35] VITALS: BP 133/83
== END 2020-12-22 12:45 | disposition home or self-care (01) ==
LOC: M SDC 07:55
PROVIDERS: ATTEND Podiatrist Foot & Ankle Surgery
DX: M86.9 Osteomyelitis, unspecified (principal); N18.6 End stage renal disease; I12.0 Hypertensive chronic kidney disease with stage 5 chronic kidney disease or end stage renal disease; Z79.82 Long term (current) use of aspirin; Z79.899 Other long term (current) drug therapy; E78.5 Hyperlipidemia, unspecified; M10.9 Gout, unspecified; D64.9 Anemia, unspecified
CPT/HCPCS: 28122; 36415; 84132; 88305; 88311; J0131; J0690; J1100; J2250; J2405; J3010

== ENCOUNTER → 2021-03-29 | Outpatient (POV) | payer BC ==
[~2021-03-29] VITALS: Ht 182.9 cm; Wt 109.0 kg
[~2021-03-29] MED LIST changes: -BUPIVACAINE HCL 0.5% 30 ML VIAL As Ordered ONE; -D5W/0.2% SODIUM CHLORIDE 1,000 ML IV ONE; +DOK1CAP4 PO; -DOK1CAP7 PO; +HYDR-3713 PO; -LIDOCAINE 1% SDV 30ML VIAL As Ordered ONE; -ceFAZolin SOD 2 GM in IV 1 EA IV ONE; -dexameTHASONE 4 MG/ML 1ML VIAL (J1100 PER 1MG) As Ordered ONE
[2021-03-29 08:51] VITALS: BP 150/90
--- NOTE | 2021-03-31 10:18 | IRCOV ---
[facility] IR Consult Office Visit IR Consult Office Visit DATE: Mar 29, 2021 REASON FOR CONSULTATION/CHIEF COMPLAINT: PAD. Nonhealing wound right lower extremity. HISTORY OF PRESENT ILLNESS: 35-year-old male, non-smoker, nondiabetic, with renal failure on dialysis and antiphospholipid syndrome, presents for evaluation of right lower extremity. Patient has long history of severe bilateral lower extremity PAD and underwent bilateral transmetatarsal amputations in September of this year. Initially he presented with left lower extremity toe gangrene which required amputation. This progressed to multiple bilateral lower extremity wounds, which required transmetatarsal amputation, performed at [facility]. Patient reports his left lower extremity amputation site has healed. However, his right lower extremity amputation site was not healing and underwent further debridement by Dr. Bahena, in December/January of this year. He reports his right foot is now a little better and starting to heal. He underwent [place]. [place] [facility], of the right lower extremity, in August 2020. He also underwent bilateral lower extremity angiogram, angioplasty and intervention at [facility] in September 2020. He denies any lower extremity pain with ambulation or at rest or elevation. He is hypertensive and is on statin for hyperlipidemia. He is on baby aspirin and no other anticoagulation. His antiphospholipid syndrome was diagnosed and managed by [facility]. He denies chest pain, shortness of breath, orthopnea or paroxysmal nocturnal dyspnea. ALLERGIES: Please see below. HOME MEDICATIONS: Please see below. PAST MEDICAL HISTORY: End-stage renal disease on dialysis Gout Hypertension CHF Lower extremity gangrene PAST SURGICAL HISTORY: Bilateral transmetatarsal amputations September 2020. Further right foot debridement in January 2021. Right lower extremity angiography and intervention in August 2020 Bilateral lower extremity angiography and intervention in September 2020 FAMILY HISTORY: Noncontributory. SOCIAL HISTORY: Non-smoker. Denies alcohol or drugs. REVIEW OF SYSTEMS: Otherwise negative. PHYSICAL EXAMINATION: VITAL SIGNS: Please see below. GENERAL APPEARANCE: Appears well. HEENT: No scleral icterus. RESPIRATORY: Normal breathing at rest. CARDIOVASCULAR: Normal rate. ABDOMEN: Soft nontender. No pulsatile mass. EXTREMITIES: Left lower extremity: Transmetatarsal amputation. Edema to the knee. Warm to touch. Stuckey in color. Posterior tibialis 1+. Popliteal 1+. Sensation 3 out of 5 motor 5 out of 5. Right lower extremity: Transmetatarsal amputation. Wound descriptions reviewed. Nontender. Edema to the knee. Warm to touch. Stuckey in color. Posterior tibialis 1+. Popliteal 1+. Sensation 3 out of 5 motor 5 out of 5. NEUROLOGICAL: Alert and oriented. PSYCHIATRIC: Appropriate to circumstance. LABORATORY DATA: None recent. Imaging: I reviewed the CT angio abdominal arteries with bilateral lower extremity runoff, performed 09/07/2020. Patent aortic bifurcation and good inflow to bilateral lower extremities. Bilateral below-knee arterial disease but p atent three-vessel runoff to the feet. Microvascular disease in the feet. I personally reviewed the angiogram performed 09/01/2020. Patent inflow to the right lower extremity. Patent two-vessel runoff to the right foot. Diseased and occluded peroneal artery. Microvascular disease in the right foot with incomplete pedal arch. The peroneal artery was recanalized and angioplastied to 2 mm. The posterior tibial artery was angioplastied to 2 mm including attempt at recanalization of the calcaneal and plantar branches with 1.5 mm coyote balloon. However this was unsuccessful and the posterior tibial artery terminates at the ankle without significant antegrade contribution into the right foot. Dorsalis pedis terminated midfoot with no significant metatarsal contribution. ASSESSMENT/PLAN: 35-year-old patient with renal failure on dialysis, nondiabetic with antiphospholipid syndrome and history of bilateral lower extremity PAD requiring bilateral transmetatarsal amputations. He presents today because his right transmetatarsal site is not healing. He underwent extensive below-knee intervention in August 2020, before his transme tatarsal amputation. I do not have the images of angiography from [place] from his recent bilateral lower extremity work. We will request the images from [place] to review his most recent angiogram and intervention. Given repeated recent interventions, I'd like to follow this patient up in 6 months time, to reevaluate his right lower extremity healing, which he feels is getting a little better, with wound care. He may well require repeat intervention and angioplasty. He is to continue with wound care at this time and follow-up with us in 6 months. If his wound significantly worsens we may consider angiography prior to that time. I spent 30 minutes reviewing patient's records, imaging and in consultation with the patient. Thank you for this referral. CC Dr. Medel Allergies Coded Allergies: No Known Drug Allergies (Verified Allergy, Unknown, 12/21/20) Home Medications Scheduled Amlodipine Besylate (Amlodipine Besylate), 10 MG PO DAILY, (Reported) Aspirin (Ecotrin), 81 MG PO DAILY, (Reported) Atorvastatin Calcium (Atorvastatin Calcium), 40 MG PO QHS, (Reported) Calcitriol (Rocaltrol), 0.25 MCG PO DAILY, (Reported) Carvedilol (Carvedilol), 25 MG PO BID, (Reported) Cholecalciferol (Vitamin D3) (Vitamin D3), 25 MCG PO DAILY, (Reported) Darbepoetin Hamilton in Polysorbat (Aranesp), 200 MCG IV HD Docusate Sodium (Dok), 100 MG PO BID Inulin (Fiber Gummies), 2 CHW PO DAILY, (Reported) Pantoprazole Sodium (Pantoprazole Sodium), 20 MG PO QHS, (Reported) Sacubitril/Valsartan (Entresto 49 mg-51 mg Tablet), 1 TAB PO BID, (Reported) Sevelamer Carbonate (Renvela), 2,400 MG PO WM, (Reported) Sulfamethoxazole/Trimethoprim (Sulfamethoxazole-Tmp Ds Tablet), 1 TAB PO BID, (Reported) [probiotic gummy], 2 CHEW PO DAILY, (Reported) Scheduled PRN Acetaminophen (Acetaminophen), 1,000 MG PO Q6H PRN for PAIN / FEVER, (Reported) Hydrocodone/Acetaminophen (Hydrocodone-Acetamin 5-325 mg), 1-2 TAB PO Q6HP PRN for pain VS, I&O, 24H, Fishbone Vital Signs/I&O Vital Signs Date Time Temp Pulse Resp B/P (MAP) Pulse Ox O2 Delivery O2 Flow Rate FiO2 03/29/21 08:51 97.0 79 20 150/90 (110) 98 Room Air PAULINO MADDEN MD Mar 31, 2021 10:18
== END ==
LOC: M IRPOV 08:44
PROVIDERS: ATTEND Radiology Diagnostic Radiology
DX: I70.235 Atherosclerosis of native arteries of right leg with ulceration of other part of foot (principal); D68.61 Antiphospholipid syndrome; E78.5 Hyperlipidemia, unspecified; I13.2 Hypertensive heart and chronic kidney disease with heart failure and with stage 5 chronic kidney disease, or end stage renal disease; I50.9 Heart failure, unspecified; N18.6 End stage renal disease; T87.89 Other complications of amputation stump; Z79.82 Long term (current) use of aspirin; Z89.421 Acquired absence of other right toe(s); Z89.422 Acquired absence of other left toe(s); Z99.2 Dependence on renal dialysis

== ENCOUNTER 2022-11-03 11:09 | Emergency (ER) | payer MEDICARE, MEDICAID ==
[~2022-11-03] VITALS: Ht 182.9 cm; Wt 117.2 kg
[~2022-11-03 11:09] MED LIST changes: +B COCAP4 PO; +COLA100C5 PO; +ENTR1TAB4 PO; +EQL1CAP9 PO; +FIBER CHOICE PO; -IBUP200T45 PO; +IBUP200T46 PO; +LEVO1TAB38 PO; -LEVO250T12 PO; +VELP5CHW PO; +VITA100T59 PO; +XARE2.5T PO
[2022-11-03 14:44] LABS: BASO # 0.1 10^3/uL (0.0-0.2); BASO % 0.7 % (0.0-1.0); EOS # 0.1 10^3/uL (0.0-0.5); EOS % 1.2 % (0.0-3.0); HEMATOCRIT 33.5 % (42.0-52.0); HEMOGLOBIN 10.8 g/dl (13.5-17.5); LYMPH # 1.6 10^3/uL (1.5-5.0); LYMPH % 13.9 % (24.0-44.0); MEAN CORPUSCULAR HEMOGLOBIN 30.3 pg (27.0-33.0); MEAN CORPUSCULAR HGB CONC 32.2 g/dl (32.0-36.5); MEAN CORPUSCULAR VOLUME 93.8 fl (80.0-96.0); MONO # 0.6 10^3/uL (0.0-0.8); MONO % 5.3 % (2.0-8.0); NEUTROPHILS # 9.3 10^3/uL (1.5-8.5); NEUTROPHILS % 78.4 % (36.0-66.0); PLATELET COUNT, AUTOMATED 237 10^3/uL (150-450); RED BLOOD COUNT 3.57 10^6/uL (4.30-6.10); WHITE BLOOD COUNT 11.8 10^3/uL (4.0-10.0)
[2022-11-03 15:01] LABS: C REACTIVE PROTEIN QUANTITATIV 2.4 MG/DL (<1.0)
[2022-11-03 15:05] LABS: CALCIUM LEVEL 8.6 MG/DL (8.5-10.1); CREATININE FOR GFR 11.88 MG/DL (0.70-1.30); GLOMERULAR FILTRATION RATE 5.1 (>60); POTASSIUM SERUM 3.9 MMOL/L (3.5-5.1)
[2022-11-03 15:29] LABS: ERYTHROCYTE SEDIMENTATION RATE 65 mm/hr (0-15)
[2022-11-03] MEDS ORDERED: CEPH500C PO (15:34)
[2022-11-03 15:59] VITALS: BP 125/82
== END 2022-11-03 16:04 | disposition home or self-care (01) ==
LOC: M ED 11:09
DX: S91.302A Unspecified open wound, left foot, initial encounter (principal); I10 Essential (primary) hypertension; K21.9 Gastro-esophageal reflux disease without esophagitis; I50.9 Heart failure, unspecified; N18.6 End stage renal disease; Z99.2 Dependence on renal dialysis; Z79.82 Long term (current) use of aspirin; Z79.899 Other long term (current) drug therapy

== ENCOUNTER → 2023-02-16 | Outpatient (CLI) | payer MEDICARE, MEDICAID ==
[~2023-02-16] MED LIST changes: +CEPH500C PO; +HEPARIN 1,000UNITS/ML 10ML VIAL (FOR RADIOLOGY & DIALYSIS ONLY) As Ordered ONE; +LIDOCAINE W/EPINEPHRINE 1% 20ML VIAL As Ordered ONE; +MIDAZOLAM INJ 2MG/2ML VIAL As Ordered ONE; +ceFAZolin 2 GM/D5W 50 ML IV BAG As Ordered ONE; +fentaNYL 100 MCG/2 ML INJECTION As Ordered ONE
[2023-02-16 07:34] VITALS: TEMP 97.4
[2023-02-16 11:00] VITALS: BP 119/68; O2SAT 99
== END ==
LOC: M IRPRO 07:26
PROVIDERS: ATTEND Surgery Vascular Surgery
DX: N18.6 End stage renal disease (principal); Z99.2 Dependence on renal dialysis
CPT/HCPCS: 36581; 99152; 99153; J0690; J2250; J3010

== ENCOUNTER 2023-02-28 06:52 | Day surgery (SDC) | payer MEDICARE, MEDICAID ==
[~2023-02-28] VITALS: Ht 182.9 cm; Wt 116.9 kg
[~2023-02-28 06:52] MED LIST changes: +D 101000 PO; +ELIQ5TAB PO; -HEPARIN 1,000UNITS/ML 10ML VIAL (FOR RADIOLOGY & DIALYSIS ONLY) As Ordered ONE; -LIDOCAINE W/EPINEPHRINE 1% 20ML VIAL As Ordered ONE; -MIDAZOLAM INJ 2MG/2ML VIAL As Ordered ONE; -ceFAZolin 2 GM/D5W 50 ML IV BAG As Ordered ONE; +ceFAZolin SOD 2 GM in IV 1 EA IV ONE; -fentaNYL 100 MCG/2 ML INJECTION As Ordered ONE
[2023-02-28] MEDS ORDERED: LIDOCAINE 2% 100MG/5ML SDV (FOR ANES.) As Ordered ONE (07:07)
[2023-02-28] MEDS ORDERED: MIDAZOLAM INJ 2MG/2ML VIAL As Ordered ONE (07:08)
[2023-02-28] MEDS ORDERED: fentaNYL 100 MCG/2 ML INJECTION As Ordered ONE (07:08)
[2023-02-28] MEDS ORDERED: LR 1,000 ML IV SCH (07:10)
[2023-02-28] MEDS ORDERED: propofoL 500 MG/50 ML VIAL As Ordered ONE (07:10)
[2023-02-28] MEDS ORDERED: LIDOCAINE 1% SDV 30ML VIAL As Ordered ONE (09:18)
[2023-02-28] MEDS ORDERED: D5/0.45%NACL 1000ML IV ONE (09:35)
[2023-02-28] MEDS ORDERED: D5W/0.45% SODIUM CHLORIDE 1,000 ML IV SCH (09:50)
[2023-02-28] MEDS ORDERED: VASOPRESSIN INJ 20UNITS/ML 1ML VIAL As Ordered ONE (09:55)
[2023-02-28] MEDS ORDERED: EPINEPHrine 1MG/10ML SYRINGE 1.5IN As Ordered ONE (09:58)
[2023-02-28] MEDS ORDERED: PHENYLephrine 500MCG 5ML (100MCG/ML) SYRINGE As Ordered ONE (09:59)
[2023-02-28 10:43] VITALS: BP 128/62; TEMP 97.5; O2SAT 99
== END 2023-02-28 10:51 | disposition home or self-care (01) ==
LOC: M SDC 06:52
PROVIDERS: ATTEND Podiatrist Foot & Ankle Surgery
DX: M86.172 Other acute osteomyelitis, left ankle and foot (principal); N18.6 End stage renal disease; E11.621 Type 2 diabetes mellitus with foot ulcer; I10 Essential (primary) hypertension; E78.5 Hyperlipidemia, unspecified; M10.9 Gout, unspecified; Z79.899 Other long term (current) drug therapy; Z79.01 Long term (current) use of anticoagulants; Z79.82 Long term (current) use of aspirin; Z86.718 Personal history of other venous thrombosis and embolism
CPT/HCPCS: 28288; 36415; 84132; J0171; J0665; J0690; J2371; J2598; J3010

== ENCOUNTER 2023-04-22 11:01 | Inpatient (IN) | payer MEDICAID, MEDICARE ==
[~2023-04-22] VITALS: Ht 182.9 cm; Wt 117.0 kg
[~2023-04-22 11:01] MED LIST changes: -ceFAZolin SOD 2 GM in IV 1 EA IV ONE
[2023-04-22 13:59] LABS: BASO # 0.1 10^3/uL (0.0-0.2); BASO % 0.3 % (0.0-1.0); EOS # 0.1 10^3/uL (0.0-0.5); EOS % 0.3 % (0.0-3.0); LYMPH # 1.5 10^3/uL (1.5-5.0); LYMPH % 5.3 % (24.0-44.0); MEAN CORPUSCULAR HEMOGLOBIN 31.6 pg (27.0-33.0); MEAN CORPUSCULAR HGB CONC 33.3 g/dl (32.0-36.5); MEAN CORPUSCULAR VOLUME 94.8 fl (80.0-96.0); MONO # 1.4 10^3/uL (0.0-0.8); NEUTROPHILS # 24.5 10^3/uL (1.5-8.5); NEUTROPHILS % 88.5 % (36.0-66.0); PLATELET COUNT, AUTOMATED 199 10^3/uL (150-450); RED BLOOD COUNT 3.48 10^6/uL (4.30-6.10); WHITE BLOOD COUNT 27.7 10^3/uL (4.0-10.0)
[2023-04-22 14:02] VITALS: TEMP 97.3; O2SAT 100
[2023-04-22 14:34] LABS: CALCIUM LEVEL 8.4 MG/DL (8.5-10.1); POTASSIUM SERUM 4.4 MMOL/L (3.5-5.1)
[2023-04-22 14:35] LABS: CREATININE FOR GFR 10.58 MG/DL (0.70-1.30); GLOMERULAR FILTRATION RATE 5.8 (>60)
[2023-04-22] MEDS ORDERED: VANCOMYCIN HCL 1,000 MG, VIAL MATE ADAPTER 1 EACH in D5W 250 ML IV STA (14:36)
[2023-04-22 14:40] LABS: C REACTIVE PROTEIN QUANTITATIV 24.5 MG/DL (<1.0)
[2023-04-22] MEDS ORDERED: TAZOBACTAM SOD IV ONE (14:40)
[2023-04-22] MEDS ORDERED: D5W MINI IV ONE (14:40)
[2023-04-22] MEDS ORDERED: PIPERACILLIN IV ONE (14:40)
[2023-04-22 14:49] LABS: ERYTHROCYTE SEDIMENTATION RATE > 130 mm/hr (0-15)
[2023-04-22] MEDS ORDERED: PIPERACILLIN/TAZOBACTAM SOD 2.25 GM in D5W MINI-BAG PLUS 50 ML IV ONE (14:55)
[2023-04-22 15:45] LABS: PROCALCITONIN 2.42 ng/ml
[2023-04-22] MEDS ORDERED: MORPHINE 2 MG/ML 1ML VIAL IV PRN (15:55)
[2023-04-22 16:13] LABS: RSV AMPLIFICATION NEGATIVE (NEGATIVE)
[2023-04-22] MEDS ORDERED: VANCOMYCIN HCL 1,000 MG, VIAL MATE ADAPTER 1 EACH in D5W 250 ML IV ONE (17:00)
[2023-04-22 17:14] VITALS: BP 104/55
[2023-04-22] MEDS: PERCOCET 5MG/325MG TAB PO PRN (20:52)
[2023-04-22] MEDS: ACETAMINOPHEN TAB 650MG DOSE (2X325MG) PO PRN (20:53)
[2023-04-22] MEDS ORDERED: APIXABAN 5 MG TAB (ELIQUIS) PO SCH (21:00)
[2023-04-22] MEDS ORDERED: CARVedilol 12.5 MG TAB PO SCH (21:00)
[2023-04-22] MEDS ORDERED: ENTRESTO 49-51MG TABLET (SACUBITRIL/VALSARTAN) PO SCH (21:00)
[2023-04-22] MEDS: APIXABAN 5 MG TAB (ELIQUIS) PO SCH (21:00)
[2023-04-22] MEDS ORDERED: PIPERACILLIN/TAZOBACTAM SOD 3.375 GM in D5W MINI-BAG PLUS 50 ML IV SCH (21:00)
[2023-04-22 21:30] VITALS: BP 95/60; TEMP 97.3; O2SAT 97
[2023-04-22] MEDS ORDERED: HOME MED LIST COMPLETE! XX SCH (23:25)
[2023-04-22 23:31] VITALS: BP 80/56; TEMP 99.1; O2SAT 98
[2023-04-22] MEDS ORDERED: SODIUM CHLORIDE 0.9% 1000ML IV ONE (23:45)
[2023-04-23] VITALS (7 sets, daily range): BP systolic 84–126; BP diastolic 53–82; TEMP 98.1–99.2; O2SAT 98–99
[2023-04-23] MEDS: PANTOPRAZOLE 20 MG TAB PO SCH ×2 (00:08→20:54)
[2023-04-23] MEDS: ATORVASTATIN 20 MG TAB PO SCH ×2 (00:08→20:54)
[2023-04-23 00:41] LABS: HEMATOCRIT 24.9 % (42.0-52.0)
[2023-04-23 00:42] LABS: HEMOGLOBIN 8.5 g/dl (13.5-17.5)
[2023-04-23] MEDS ORDERED: SODIUM CHLORIDE 0.9% 1000ML IV ONE (00:45)
[2023-04-23] MEDS: PIPERACILLIN/TAZOBACTAM SOD 4.5 GM in D5W MINI-BAG PLUS 50 ML IV SCH ×2 (04:15→17:27)
[2023-04-23 06:22] LABS: BASO # 0.1 10^3/uL (0.0-0.2); BASO % 0.4 % (0.0-1.0); EOS # 0.1 10^3/uL (0.0-0.5); HEMATOCRIT 29.4 % (42.0-52.0); HEMOGLOBIN 9.6 g/dl (13.5-17.5); LYMPH # 0.7 10^3/uL (1.5-5.0); LYMPH % 4.9 % (24.0-44.0); MEAN CORPUSCULAR HEMOGLOBIN 30.9 pg (27.0-33.0); MEAN CORPUSCULAR HGB CONC 32.7 g/dl (32.0-36.5); MEAN CORPUSCULAR VOLUME 94.5 fl (80.0-96.0); MONO # 0.7 10^3/uL (0.0-0.8); MONO % 4.9 % (2.0-8.0); NEUTROPHILS % 88.2 % (36.0-66.0); PLATELET COUNT, AUTOMATED 167 10^3/uL (150-450); RED BLOOD COUNT 3.11 10^6/uL (4.30-6.10); WHITE BLOOD COUNT 13.6 10^3/uL (4.0-10.0)
[2023-04-23] MEDS: APIXABAN 5 MG TAB (ELIQUIS) PO SCH (06:38)
[2023-04-23 06:43] LABS: CALCIUM LEVEL 8.1 MG/DL (8.5-10.1); CREATININE FOR GFR 12.11 MG/DL (0.70-1.30); POTASSIUM SERUM 4.5 MMOL/L (3.5-5.1)
[2023-04-23] MEDS: SUCROFERRIC OXYHYDROXIDE 500MG CHEW TAB (VELPHORO) PO SCH ×3 (08:00→18:04)
[2023-04-23] MEDS: VITAMIN B COMPLEX/VIT C CAP PO SCH (08:00)
[2023-04-23] MEDS ORDERED: VANCOMYCIN HCL 1,000 MG, VIAL MATE ADAPTER 1 EACH in D5W 250 ML IV SCH ×2 (09:00→15:05)
[2023-04-23] MEDS ORDERED: ASPIRIN 81MG CHEW TABLET PO SCH (09:00)
[2023-04-23] MEDS ORDERED: HEPARIN 1,000UNITS/ML 10ML VIAL (FOR RADIOLOGY & DIALYSIS ONLY) IV PRN (11:35)
[2023-04-23] MEDS ORDERED: DARBEPOETIN 100MCG/0.5ML *DIALYSIS* SYRINGE IV SCH (11:35)
[2023-04-23] MEDS ORDERED: SODIUM CHLORIDE 0.9% 1000ML IV PRN (11:35)
[2023-04-23] MEDS: PERCOCET 5MG/325MG TAB PO PRN (17:33)
[2023-04-23] MEDS: CARVedilol 12.5 MG TAB PO SCH (20:52)
[2023-04-23] MEDS: ENTRESTO 49-51MG TABLET (SACUBITRIL/VALSARTAN) PO SCH (20:53)
[2023-04-23] MEDS ORDERED: APIXABAN 5 MG TAB (ELIQUIS) PO SCH (21:00)
[2023-04-24] MEDS: PIPERACILLIN/TAZOBACTAM SOD 4.5 GM in D5W MINI-BAG PLUS 50 ML IV SCH ×2 (04:10→16:37)
[2023-04-24 06:00] VITALS: BP 107/64; TEMP 97.9; O2SAT 96
[2023-04-24 06:18] LABS: BASO % 0.5 % (0.0-1.0); EOS # 0.2 10^3/uL (0.0-0.5); HEMATOCRIT 25.6 % (42.0-52.0); HEMOGLOBIN 8.6 g/dl (13.5-17.5); LYMPH # 1.3 10^3/uL (1.5-5.0); LYMPH % 16.8 % (24.0-44.0); MEAN CORPUSCULAR HEMOGLOBIN 31.3 pg (27.0-33.0); MEAN CORPUSCULAR HGB CONC 33.6 g/dl (32.0-36.5); MEAN CORPUSCULAR VOLUME 93.1 fl (80.0-96.0); MONO # 0.9 10^3/uL (0.0-0.8); MONO % 11.7 % (2.0-8.0); NEUTROPHILS # 5.2 10^3/uL (1.5-8.5); NEUTROPHILS % 67.3 % (36.0-66.0); PLATELET COUNT, AUTOMATED 169 10^3/uL (150-450); RED BLOOD COUNT 2.75 10^6/uL (4.30-6.10); WHITE BLOOD COUNT 7.7 10^3/uL (4.0-10.0)
[2023-04-24 06:46] LABS: CREATININE FOR GFR 7.73 MG/DL (0.70-1.30); GLOMERULAR FILTRATION RATE 8.4 (>60); POTASSIUM SERUM 3.6 MMOL/L (3.5-5.1)
[2023-04-24 07:45] LABS: C REACTIVE PROTEIN QUANTITATIV 15.3 MG/DL (<1.0)
[2023-04-24 07:58] LABS: PROCALCITONIN 4.47 ng/ml
[2023-04-24] MEDS: SUCROFERRIC OXYHYDROXIDE 500MG CHEW TAB (VELPHORO) PO SCH ×4 (08:33→18:12)
[2023-04-24] MEDS: VITAMIN B COMPLEX/VIT C CAP PO SCH (08:34)
[2023-04-24] MEDS: CARVedilol 12.5 MG TAB PO SCH ×2 (08:35→20:58)
[2023-04-24] MEDS: PERCOCET 5MG/325MG TAB PO PRN ×2 (08:36→20:46)
[2023-04-24] MEDS: ENTRESTO 49-51MG TABLET (SACUBITRIL/VALSARTAN) PO SCH ×2 (08:36→20:58)
[2023-04-24] MEDS ORDERED: ASPIRIN 81MG ENTERIC TABLET PO SCH (09:00)
[2023-04-24] MEDS ORDERED: COSYNTROPIN 0.25 MG/ML 1ML VIAL IV ONE (09:00)
[2023-04-24 14:00] VITALS: BP 100/56; TEMP 97.5; O2SAT 99
[2023-04-24 20:33] VITALS: BP 103/61; TEMP 97.1; O2SAT 98
[2023-04-24] MEDS: ATORVASTATIN 20 MG TAB PO SCH (20:43)
[2023-04-24] MEDS: APIXABAN 5 MG TAB (ELIQUIS) PO SCH (20:43)
[2023-04-24] MEDS: PANTOPRAZOLE 20 MG TAB PO SCH (20:44)
[2023-04-24] MEDS: ACETAMINOPHEN TAB 650MG DOSE (2X325MG) PO PRN (20:45)
[2023-04-25] MEDS: PIPERACILLIN/TAZOBACTAM SOD 4.5 GM in D5W MINI-BAG PLUS 50 ML IV SCH (03:55)
[2023-04-25] MEDS: APIXABAN 5 MG TAB (ELIQUIS) PO SCH (05:32)
[2023-04-25] MEDS ORDERED: SODIUM CHLORIDE 0.9% 1000ML IV PRN (06:00)
[2023-04-25] MEDS ORDERED: HEPARIN 1,000UNITS/ML 10ML VIAL (FOR RADIOLOGY & DIALYSIS ONLY) IV PRN (06:00)
[2023-04-25 06:33] LABS: BASO # 0.1 10^3/uL (0.0-0.2); BASO % 0.7 % (0.0-1.0); EOS # 0.3 10^3/uL (0.0-0.5); EOS % 3.9 % (0.0-3.0); HEMATOCRIT 26.2 % (42.0-52.0); HEMOGLOBIN 8.9 g/dl (13.5-17.5); LYMPH # 1.5 10^3/uL (1.5-5.0); LYMPH % 19.9 % (24.0-44.0); MEAN CORPUSCULAR HEMOGLOBIN 31.6 pg (27.0-33.0); MEAN CORPUSCULAR VOLUME 92.9 fl (80.0-96.0); MONO # 0.8 10^3/uL (0.0-0.8); NEUTROPHILS # 4.7 10^3/uL (1.5-8.5); NEUTROPHILS % 64.1 % (36.0-66.0); PLATELET COUNT, AUTOMATED 177 10^3/uL (150-450); RED BLOOD COUNT 2.82 10^6/uL (4.30-6.10); WHITE BLOOD COUNT 7.4 10^3/uL (4.0-10.0)
[2023-04-25 06:42] VITALS: BP 113/75; TEMP 98.1; O2SAT 96
[2023-04-25 06:53] VITALS: BP 113/75
[2023-04-25] MEDS: CARVedilol 12.5 MG TAB PO SCH (06:53)
[2023-04-25] MEDS: ENTRESTO 49-51MG TABLET (SACUBITRIL/VALSARTAN) PO SCH (06:54)
[2023-04-25 06:57] LABS: CALCIUM LEVEL 7.5 MG/DL (8.5-10.1); CREATININE FOR GFR 10.24 MG/DL (0.70-1.30); POTASSIUM SERUM 3.5 MMOL/L (3.5-5.1)
[2023-04-25 07:09] VITALS: BP 107/64; TEMP 97.5; O2SAT 93
[2023-04-25] MEDS: SUCROFERRIC OXYHYDROXIDE 500MG CHEW TAB (VELPHORO) PO SCH ×2 (07:49→12:30)
[2023-04-25] MEDS: VITAMIN B COMPLEX/VIT C CAP PO SCH (07:49)
[2023-04-25] MEDS ORDERED: ASPIRIN 81MG ENTERIC TABLET PO SCH (09:00)
[2023-04-25] MEDS ORDERED: PROBCAP14 PO (11:29)
[2023-04-25] MEDS ORDERED: DOXY100C3 PO (11:29)
[2023-04-25] MEDS ORDERED: AMOX875T2 PO (11:39)
[2023-04-25] MEDS ORDERED: AMOX500T2 PO (11:46)
[2023-04-25 12:55] VITALS: BP 112/78
[2023-04-25] MEDS ORDERED: OXYC1TAB23 PO (14:30)
== END 2023-04-25 14:00 | disposition home or self-care (01) | DRG 503 ==
LOC: M ED 11:01 → M ED INP 14:58 → EEVIPCON 14:58 → M MSPAV 16:02
PROVIDERS: ADMIT General Practice; ATTEND Internal Medicine
PROC: 0QBP0Z2 Excision of Left Metatarsal, Sesamoid Bone(s) 1st Toe, Open Approach (ICD-10-PCS; principal; 2023-04-22)
DX: T87.44 Infection of amputation stump, left lower extremity (principal); N18.6 End stage renal disease; I50.32 Chronic diastolic (congestive) heart failure; I13.2 Hypertensive heart and chronic kidney disease with heart failure and with stage 5 chronic kidney disease, or end stage renal disease; T87.81 Dehiscence of amputation stump; K21.9 Gastro-esophageal reflux disease without esophagitis; E78.5 Hyperlipidemia, unspecified; D64.9 Anemia, unspecified; M10.9 Gout, unspecified; E66.01 Morbid (severe) obesity due to excess calories; I95.89 Other hypotension; Z99.2 Dependence on renal dialysis; Z79.82 Long term (current) use of aspirin; Z79.899 Other long term (current) drug therapy; I73.9 Peripheral vascular disease, unspecified; B95.8 Unspecified staphylococcus as the cause of diseases classified elsewhere; B95.5 Unspecified streptococcus as the cause of diseases classified elsewhere; Y83.5 Amputation of limb(s) as the cause of abnormal reaction of the patient, or of later complication, without mention of misadventure at the time of the procedure

== ENCOUNTER → 2023-07-31 | Outpatient (REF) ==
[~2023-07-31] MED LIST changes: +AMOX500T2 PO; +AMOX875T2 PO; +DOXY100C3 PO; +OXYC1TAB23 PO; +PROBCAP14 PO
== END ==
LOC: M RAD 08:01 → EDSTATUS 08:30
PROVIDERS: ATTEND Nurse Practitioner Family
DX: Z01.818 Encounter for other preprocedural examination (principal); I73.9 Peripheral vascular disease, unspecified; I77.819 Aortic ectasia, unspecified site; I65.23 Occlusion and stenosis of bilateral carotid arteries; I70.1 Atherosclerosis of renal artery; N20.0 Calculus of kidney; N28.1 Cyst of kidney, acquired

== ENCOUNTER 2024-08-24 15:17 | Inpatient (IN) | payer MEDICARE, MEDICAID ==
[~2024-08-24] VITALS: Ht 182.9 cm; Wt 121.5 kg
[2024-08-24] MEDS ORDERED: VANCOMYCIN HCL 1,000 MG, VIAL MATE ADAPTER 1 EACH in NS 250 ML IP ONE (16:40)
[2024-08-24] MEDS ORDERED: NS (Normal Saline) 0.9% 1,000 ML IV SCH (16:40)
[2024-08-24 16:54] LABS: ERYTHROCYTE SEDIMENTATION RATE 53 mm/hr (0-15)
[2024-08-24 17:15] LABS: HEMATOCRIT 33.6 % (42.0-52.0); HEMOGLOBIN 10.9 g/dl (13.5-17.5); MEAN CORPUSCULAR HEMOGLOBIN 33.1 pg (27.0-33.0); MEAN CORPUSCULAR HGB CONC 32.4 g/dl (32.0-36.5); MEAN CORPUSCULAR VOLUME 102.1 fl (80.0-96.0); PLATELET COUNT, AUTOMATED 155 10^3/uL (150-450); RED BLOOD COUNT 3.29 10^6/uL (4.30-6.10); WHITE BLOOD COUNT 10.2 10^3/uL (4.0-10.0)
[2024-08-24 17:24] LABS: C REACTIVE PROTEIN QUANTITATIV 2.84 MG/DL (<1.0)
[2024-08-24 17:26] LABS: ALBUMIN 3.2 G/DL (3.2-5.2); BILIRUBIN,TOTAL 0.2 MG/DL (0.3-1.2); CALCIUM LEVEL 8.9 MG/DL (8.5-10.1); CREATININE FOR GFR 9.61 MG/DL (0.70-1.30); GLOMERULAR FILTRATION RATE 6.4 (>60); POTASSIUM SERUM 4.3 MMOL/L (3.5-5.1); TOTAL PROTEIN 8.2 G/DL (5.7-8.2)
[2024-08-24] MEDS ORDERED: EZET10TA21 PO (17:26)
[2024-08-24] MEDS ORDERED: HOME MED LIST COMPLETE! XX SCH (17:30)
[2024-08-24] MEDS: VANCOMYCIN HCL 1,500 MG, VIAL MATE ADAPTER 1 EACH in NS 500 ML IV ONE (18:04)
[2024-08-24] MEDS ORDERED: ACETAMINOPHEN 500 MG TAB PO PRN (18:15)
[2024-08-24] MEDS: SUCROFERRIC OXYHYDROXIDE 500MG CHEW TAB (VELPHORO) PO SCH (19:07)
[2024-08-24 20:33] VITALS: BP 133/86; TEMP 97.7; O2SAT 95
[2024-08-24] MEDS: ATORVASTATIN 20 MG TAB PO SCH (22:07)
[2024-08-24] MEDS: CARVedilol 12.5 MG TAB PO SCH (22:08)
[2024-08-24] MEDS: ENTRESTO 49-51MG TABLET (SACUBITRIL/VALSARTAN) PO SCH (22:09)
[2024-08-25] VITALS (9 sets, daily range): BP systolic 89–125; BP diastolic 56–76; TEMP 97.5–98.1; O2SAT 96–100
[2024-08-25] MEDS ORDERED: HEPARIN 1,000UNITS/ML 10ML VIAL (FOR RADIOLOGY & DIALYSIS ONLY) IV PRN (06:00)
[2024-08-25] MEDS ORDERED: SODIUM CHLORIDE 0.9% 1000 ML IV PRN (06:00)
[2024-08-25 06:34] LABS: HEMATOCRIT 30.5 % (42.0-52.0); HEMOGLOBIN 9.8 g/dl (13.5-17.5); MEAN CORPUSCULAR HGB CONC 32.1 g/dl (32.0-36.5); MEAN CORPUSCULAR VOLUME 102.7 fl (80.0-96.0); PLATELET COUNT, AUTOMATED 157 10^3/uL (150-450); RED BLOOD COUNT 2.97 10^6/uL (4.30-6.10); WHITE BLOOD COUNT 10.3 10^3/uL (4.0-10.0)
[2024-08-25 06:41] LABS: ERYTHROCYTE SEDIMENTATION RATE 57 mm/hr (0-15)
[2024-08-25 07:33] LABS: BLOOD UREA NITROGEN 52 MG/DL (9-23); CALCIUM LEVEL 8.2 MG/DL (8.5-10.1); CARBON DIOXIDE LEVEL 26 MMOL/L (20-31); CHLORIDE LEVEL 100 MMOL/L (98-107); CREATININE FOR GFR 11.02 MG/DL (0.70-1.30); GLOMERULAR FILTRATION RATE 5.5 (>60); GLUCOSE, FASTING 162 MG/DL (60-100); POTASSIUM SERUM 4.7 MMOL/L (3.5-5.1); SODIUM LEVEL 140 MMOL/L (136-145)
[2024-08-25] MEDS: EZETIMIBE 10MG TABLET (ZETIA) PO SCH (08:30)
[2024-08-25] MEDS: LACTIC ACID 12% LOTION 225 GM BTL TOP SCH (09:00)
[2024-08-25] MEDS: HEPARIN 1,000UNITS/ML 10ML VIAL (FOR RADIOLOGY & DIALYSIS ONLY) XX SCH (09:25)
[2024-08-25 11:37] LABS: PHOSPHORUS LEVEL 5.1 MG/DL (2.5-4.9)
[2024-08-25 13:46] LABS: VANCOMYCIN RANDOM < 3.0 UG/ML
[2024-08-25] MEDS: VANCOMYCIN HCL 1,500 MG, VIAL MATE ADAPTER 1 EACH in NS 500 ML IV ONE (15:43)
[2024-08-26 00:11] VITALS: BP 95/50; TEMP 97.9; O2SAT 91
[2024-08-26 04:00] VITALS: BP 100/73; TEMP 97.7; O2SAT 96
[2024-08-26 07:34] LABS: HEMATOCRIT 34.3 % (42.0-52.0); MEAN CORPUSCULAR HEMOGLOBIN 32.5 pg (27.0-33.0); MEAN CORPUSCULAR HGB CONC 32.1 g/dl (32.0-36.5); MEAN CORPUSCULAR VOLUME 101.5 fl (80.0-96.0); PLATELET COUNT, AUTOMATED 156 10^3/uL (150-450); RED BLOOD COUNT 3.38 10^6/uL (4.30-6.10); WHITE BLOOD COUNT 9.9 10^3/uL (4.0-10.0)
[2024-08-26 07:52] LABS: ERYTHROCYTE SEDIMENTATION RATE 50 mm/hr (0-15)
[2024-08-26 08:00] VITALS: BP 100/67; TEMP 97.6; O2SAT 96
[2024-08-26 08:35] LABS: CALCIUM LEVEL 8.8 MG/DL (8.5-10.1); CREATININE FOR GFR 8.51 MG/DL (0.70-1.30); GLOMERULAR FILTRATION RATE 7.4 (>60); POTASSIUM SERUM 4.4 MMOL/L (3.5-5.1)
[2024-08-26 08:54] VITALS: BP 105/73
[2024-08-26 12:00] VITALS: BP 113/70; TEMP 97.5; O2SAT 98
[2024-08-26] MEDS ORDERED: AMOX500C PO (15:43)
[2024-08-27] MEDS ORDERED: VANCOMYCIN HCL 1,000 MG, VIAL MATE ADAPTER 1 EACH in NS 250 ML IV SCH (16:00)
== END 2024-08-26 17:50 | disposition home or self-care (01) | DRG 539 ==
LOC: M ED 15:17 → M ED INP 15:18 → M MS5PR 20:03 → OBSVTOIN 08-25 07:47
PROVIDERS: ADMIT Student in an Organized Health Care Education/Training Program; ATTEND Student in an Organized Health Care Education/Training Program
PROC: 5A1D70Z Performance of Urinary Filtration, Intermittent, Less than 6 Hours Per Day (ICD-10-PCS; principal; 2024-08-25)
DX: M86.8X7 Other osteomyelitis, ankle and foot (principal); N18.6 End stage renal disease; I13.2 Hypertensive heart and chronic kidney disease with heart failure and with stage 5 chronic kidney disease, or end stage renal disease; I50.22 Chronic systolic (congestive) heart failure; L97.919 Non-pressure chronic ulcer of unspecified part of right lower leg with unspecified severity; L02.611 Cutaneous abscess of right foot; L97.519 Non-pressure chronic ulcer of other part of right foot with unspecified severity; E78.5 Hyperlipidemia, unspecified; D63.1 Anemia in chronic kidney disease; K21.9 Gastro-esophageal reflux disease without esophagitis; D72.819 Decreased white blood cell count, unspecified; Z89.421 Acquired absence of other right toe(s); Z89.422 Acquired absence of other left toe(s); I73.9 Peripheral vascular disease, unspecified; M10.9 Gout, unspecified; Z99.2 Dependence on renal dialysis; Z79.899 Other long term (current) drug therapy; E83.39 Other disorders of phosphorus metabolism

== ENCOUNTER 2025-03-18 06:27 | Emergency (ER) | payer MEDICARE, MEDICAID ==
[~2025-03-18] VITALS: Ht 182.9 cm; Wt 116.4 kg
[~2025-03-18 06:27] MED LIST changes: +AMOX500C PO; +EZET10TA21 PO
[2025-03-18 09:52] LABS: BASO # 0.1 10^3/uL (0.0-0.2); BASO % 0.6 % (0.0-1.0); EOS # 0.2 10^3/uL (0.0-0.5); EOS % 1.8 % (0.0-3.0); LYMPH # 1.4 10^3/uL (1.5-5.0); LYMPH % 17.4 % (24.0-44.0); MONO # 0.6 10^3/uL (0.0-0.8); MONO % 7.1 % (2.0-8.0); NEUTROPHILS # 6.0 10^3/uL (1.5-8.5); NEUTROPHILS % 72.9 % (36.0-66.0); PLATELET COUNT, AUTOMATED 170 10^3/uL (150-450)
[2025-03-18] MEDS: hydrALAZINE 20 MG/ML 1 ML VIAL IV ONE ×2 (09:52→14:05)
[2025-03-18 10:28] LABS: ALT/SGPT 19.0 U/L (7.0-40); AST/SGOT 13.0 U/L (<34); CALCIUM LEVEL 11.6 MG/DL (8.5-10.1); CARBON DIOXIDE LEVEL 28.0 MMOL/L (20-31); CHLORIDE LEVEL 100.0 MMOL/L (98-107); CREATININE FOR GFR 10.7 MG/DL (0.70-1.30); GLOMERULAR FILTRATION RATE 5.6 (>60); POTASSIUM SERUM 4.5 MMOL/L (3.5-5.1); SODIUM LEVEL 143.0 MMOL/L (136-145)
[2025-03-18] MEDS: hydrALAZINE 20 MG/ML 1 ML VIAL IV STA (10:40)
[2025-03-18] MEDS: LABETALOL 100 MG/20 ML VIAL IV STA ×2 (11:52→12:55)
[2025-03-18] MEDS ORDERED: ASPI81TA27 PO (12:48)
[2025-03-18] MEDS ORDERED: HOME MED LIST COMPLETE! XX SCH (12:50)
[2025-03-18 14:05] VITALS: BP 233/114
[2025-03-18 14:53] VITALS: BP 198/108; TEMP 97.4; O2SAT 99
== END 2025-03-18 15:04 | disposition home or self-care (01) ==
LOC: M ED 08:05
DX: I10 Essential (primary) hypertension (principal); K21.9 Gastro-esophageal reflux disease without esophagitis; E78.5 Hyperlipidemia, unspecified; N18.6 End stage renal disease; Z79.82 Long term (current) use of aspirin; Z79.02 Long term (current) use of antithrombotics/antiplatelets; Z79.899 Other long term (current) drug therapy
CPT/HCPCS: 80053; 85025; 93005; 96374; 96375; 96376; 99285; J0360; J1920